=== PATIENT | female | born 1960 | race Caucasian/White ===

== ENCOUNTER 2018-03-27 18:15 | Inpatient (IN) ==
[2018-03-27] MEDS ORDERED: HYDROmorphone PF Inj 2 MG/ML Vial IV.PUSH PRN (19:26)
--- NOTE | 2018-03-27 19:32 | ED ---
HPI General Chief Complaint: Fever Stated Complaint: Sent by dr Villagomez Seen by Provider: 03/27/18 19:12 History of Present Illness HPI Narrative: 57-year-old woman with allogenic renal transplant June 2017, [place], [place], presents with progressive fever over the past several days. Kidney function has been fairly well, but she is not sure if she has a urinary tract infection, reporting that she has pain in her left flank. She has no cough or congestion, she has a port in her right chest, but this is not tender, and it has been infusing well. Patient has been receiving Prograf up until a couple of weeks ago, and was switched at the beginning of the month to intravenous meds monthly for graft rejection. Renal transplant function was reported at 48% at last check, she had stable biopsy approximately a month after transplant, none since. She reports remaining kidneys removed. Pain is localized to left flank area, mild radiation towards the back, no aggravation with movement, no alleviation with ovsv-cnq-qndgfct medications. Patient's health is good otherwise. 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 She is also has polycystic liver disease, but her only significant abnormality is an elevated AST, but she is never had cirrhosis or ascites. She had a complicated right femoral fracture, and she has had prior DVT of her right lower extremity after transplant, which is currently treated with daily Lovenox. Patient does not tolerate NSAIDs as a result of the transplant. Related Data Home Medications Medication Instructions Recorded Confirmed Phenergan 25 mg PO Q6-8H PRN 03/27/18 03/27/18 acetaminophen 650 mg PO Q4H PRN 03/27/18 03/27/18 anagrelide 0.5 mg PO Q12H 03/27/18 03/27/18 atorvastatin 20 mg PO DAILY 03/27/18 03/27/18 azathioprine [Imuran] 100 mg PO DAILY 03/27/18 03/27/18 belatacept 10 mg/kg IV QMONTH 03/27/18 03/27/18 calcium carbonate 1 tab PO BID 03/27/18 03/27/18 carvedilol 12.5 mg PO BID 03/27/18 03/27/18 diphenoxylate-atropine [Lomotil] 1 tab PO TID 03/27/18 03/27/18 enoxaparin 40 mg SUBCUT DAILY 03/27/18 03/27/18 ergocalciferol (vitamin D2) 50,000 unit PO 3XW 03/27/18 03/27/18 hydromorphone 2 mg PO Q6H PRN 03/27/18 03/27/18 insulin glargine 12 unit SUBCUT QNOON 03/27/18 03/27/18 insulin lispro 1 sliding scale dose SUBCUT UD 03/27/18 03/27/18 [id number] [Creon] 1 cap PO TIDAC 03/27/18 03/27/18 ondansetron 4 mg PO Q8H PRN 03/27/18 03/27/18 pantoprazole 40 mg PO BID 03/27/18 03/27/18 prednisone 10 mg PO DAILY 03/27/18 03/27/18 prochlorperazine maleate 10 mg PO Q6-8H PRN 03/27/18 03/27/18 [Compazine] tacrolimus 0.5 mg PO DAILY 03/27/18 03/27/18 tacrolimus [Prograf] 4 mg PO Q12H 03/27/18 03/27/18 Allergies Allergy/AdvReac Type Severity Reaction Status Date / Time metronidazole [From Flagyl] Allergy Mild Hives Verified 03/27/18 18:27 oxycodone Allergy Mild Redness of Verified 03/27/18 18:27 Skin oxytetracycline Allergy Mild Hives Verified 03/27/18 18:27 [From Terramycin] [facility] Medical History Medical History Diabetes (Acute) Dumping syndrome (Acute) GERD (gastroesophageal reflux disease) (Acute) Gastroparesis (Acute) History of hysterectomy (Acute) Kidney failure (Acute) Liver function failure (Acute) On total parenteral nutrition (TPN) (Acute) Surgical History Surgical History H/O splenectomy (Acute) History of colectomy (Acute) History of intestinal surgery (Acute) History of oophorectomy (Acute) History of pancreatectomy (Acute) Kidney transplant recipient (Acute) Surgical procedure on lower extremity within past 6 months (Acute) Social History Social History Substance History: No History of Abuse Second Hand Smoke Exposure: No Smoking Status: Former smoker Tobacco Type: Cigarettes How Often Do You Have a Drink Containing Alcohol: Never Recent Travel in [facility] within the Last 8 Weeks: No Recent Out of Country Travel within the Last 8 Weeks: No Exam Narrative Exam Narrative: GENERAL: Adult female, somewhat thin but generally healthy- appearing, she is febrile, but resting fairly comfortably, no acute distress, speaks easily, breathes easily. SKIN: Focused skin assessment warm/dry. Good turgor. HEAD: Atraumatic. Normocephalic. EYES: Pupils equal and round. No scleral icterus. No injection or drainage. ENT: Pharynx is benign. No nasal bleeding or discharge. Mucous membranes pink and moist. NECK: Trachea midline. No JVD. CARDIOVASCULAR: Regular rate and rhythm. Soft 0/6 to 1/6 systolic murmur heard best in left lower sternal border, no other murmur appreciated. CHEST: Ward catheter in place right upper anterior chest wall, intact, not inflamed, no drainage. RESPIRATORY: No accessory muscle use. Clear to auscultation. Breath sounds equal bilaterally. GASTROINTESTINAL: Abdomen large midline incision, well-healed, kidney is palpable in right lower quadrant, nontender, no surrounding inflammation or edema. Remainder of abdomen is flat and soft, mild to moderate tenderness palpation mid left abdomen, left flank nontender, nondistended. Hepatic and splenic margins not palpable. MUSCULOSKELETAL: Back nontender, no costovertebral angle tenderness. No obvious deformities. No clubbing. No cyanosis. No edema. NEUROLOGICAL: Awake and alert. No obvious cranial nerve deficits. Motor grossly within normal limits. Normal speech. PSYCHIATRIC: Appropriate mood and affect; insight and judgment normal. Course Initial Documented Vital Signs Temperature 100.5 F H 03/27/18 19:14 Pulse Rate 42 L 03/27/18 19:14 Respiratory Rate 16 03/27/18 19:14 Blood Pressure 141/80 H 03/27/18 19:14 Pulse Oximetry 98 03/27/18 19:14 Last Documented Vital Signs Temperature 100.5 F H 03/27/18 19:14 Pulse Rate 42 L 03/27/18 19:14 Respiratory Rate 16 03/27/18 19:14 Blood Pressure 141/80 H 03/27/18 19:14 Pulse Oximetry 98 03/27/18 19:14 Medical Decision Making [facility] Narrative Medical decision making narrative: This patient with renal transplant in June 2017, presents with fever for 2 days, he is febrile on examination, but has stable labs, with borderline elevation of white count, stable lactic acid, intact port, but with past history of port infection with VRE, requiring change 2 months ago. Patient also has some left mid abdominal discomfort, but abdomen is generally soft in all quadrants, including the left abdomen. She is nontender in the left flank, and in the left CVA area, and lungs are clear, with normal chest x-ray. She does not meet sepsis criteria, but needs evaluation to see if she is bacteremic, will be covered with antibiotics. Consultation with transplant specialist at [facility] performed, 2100 hrs. , case reviewed with him, patient has had relatively uncomplicated course, no significant evidence of rejection, and creatinine has been stable, and remains so today. Recommended initial coverage with Zyvox and or Zosyn, and patient will be admitted to a floor bed pending cultures. Medical Screen Exam Complete: Yes Emergency Medical Condition: Yes Lab Data Result diagrams: 03/27/18 20:10 03/27/18 20:10 Lab Results 03/27/18 03/27/18 03/27/18 Range/Units 19:01 20:10 20:10 WBC 13.7 H (4.0-11.0) th/mm3 RBC 3.77 L (4.00-5.30) mil/mm3 Hgb 10.7 L (11.6-15.3) gm/dL Hct 33.7 L (35.0-46.0) % MCV 89.2 (80.0-100.0) fL MCH 28.4 (27.0-34.0) pg MCHC 31.8 L (32.0-36.0) % RDW 16.5 (11.6-17.2) % Plt Count 187 (150-450) th/mm3 MPV 8.5 (7.0-11.0) fL Neut % (Auto) 84.5 H (16.0-70.0) % Lymph % (Auto) 2.8 L (9.0-44.0) % Warren % (Auto) 12.1 H (0.0-8.0) % Eos % (Auto) 0.3 (0.0-4.0) % Baso % (Auto) 0.3 (0.0-2.0) % Neut # (Auto) 11.6 H (1.8-7.7) th/mm3 Lymph # (Auto) 0.4 L (1.0-4.8) th/mm3 Warren # (Auto) 1.7 H (0.0-0.9) th/mm3 Eos # (Auto) 0.0 (0.0-0.4) th/mm3 Baso # (Auto) 0.0 (0.0-0.2) th/mm3 WBC Differential . Differential Comment Auto diff final PT 10.2 (9.8-11.6) sec INR 1.0 Ratio Sodium (136-145) meq/L Potassium (3.5-5.1) meq/L Chloride (98-107) meq/L Carbon Dioxide (21.0-32.0) meq/L Anion Gap (5-15) meq/L BUN (7-18) mg/dL Creatinine (0.50-1.00) mg/dL Estimated GFR (>89) mL/min POC Glucose 193 H (68-110) mg/dl Random Glucose (74-106) mg/dL Lactic Acid (0.4-2.0) mmol/L Calcium (8.5-10.1) mg/dL Phosphorus (2.5-4.9) mg/dL Magnesium (1.5-2.5) mg/dL Total Bilirubin (0.2-1.0) mg/dL AST (15-37) U/L ALT (10-53) U/L Alkaline Phosphatase (45-117) U/L Total Protein (6.4-8.2) g/dL Albumin (3.4-5.0) g/dL Urine Color (Yellw/Straw) Urine Clarity (Clear) Urine pH (5.0-8.5) Ur Specific Henderson (1.002-1.035) Urine Protein (Neg-Trace) mg/dL Urine Glucose (UA) (Negative) mg/dL Urine Ketones (Negative) mg/dL Urine Occult Blood (Negative) Urine Nitrate (Negative) Urine Bilirubin (Negative) Urine Urobilinogen (Less than 2) mg/dL Ur Leukocyte Esterase (Negative) Urine WBC (0-5) /hpf Ur Squamous Epith Cells (0-5) /hpf Micro UA Comment Ur Microscopic Review Urine Culture Comments 09/03/27/18 03/27/18 Range/Units 20:10 20:10 21:20 WBC (4.0-11.0) th/mm3 RBC (4.00-5.30) mil/mm3 Hgb (11.6-15.3) gm/dL Hct (35.0-46.0) % MCV (80.0-100.0) fL MCH (27.0-34.0) pg MCHC (32.0-36.0) % RDW (11.6-17.2) % Plt Count (150-450) th/mm3 MPV (7.0-11.0) fL Neut % (Auto) (16.0-70.0) % Lymph % (Auto) (9.0-44.0) % Warren % (Auto) (0.0-8.0) % Eos % (Auto) (0.0-4.0) % Baso % (Auto) (0.0-2.0) % Neut # (Auto) (1.8-7.7) th/mm3 Lymph # (Auto) (1.0-4.8) th/mm3 Warren # (Auto) (0.0-0.9) th/mm3 Eos # (Auto) (0.0-0.4) th/mm3 Baso # (Auto) (0.0-0.2) th/mm3 WBC Differential Differential Comment PT (9.8-11.6) sec INR Ratio Sodium 131 L (136-145) meq/L Potassium 5.2 H (3.5-5.1) meq/L Chloride 101 (98-107) meq/L Carbon Dioxide 20.1 L (21.0-32.0) meq/L Anion Gap 10 (5-15) meq/L BUN 23 H (7-18) mg/dL Creatinine 1.21 H (0.50-1.00) mg/dL Estimated GFR 46 L (>89) mL/min POC Glucose (68-110) mg/dl Random Glucose 161 H (74-106) mg/dL Lactic Acid 1.2 (0.4-2.0) mmol/L Calcium 10.3 H (8.5-10.1) mg/dL Phosphorus 1.7 L (2.5-4.9) mg/dL Magnesium 1.6 (1.5-2.5) mg/dL Total Bilirubin 0.3 (0.2-1.0) mg/dL AST 18 (15-37) U/L ALT 24 (10-53) U/L Alkaline Phosphatase 257 H (45-117) U/L Total Protein 8.1 (6.4-8.2) g/dL Albumin 3.3 L (3.4-5.0) g/dL Urine Color Straw (Yellw/Straw) Urine Clarity Clear (Clear) Urine pH 5.0 (5.0-8.5) Ur Specific Henderson 1.008 (1.002-1.035) Urine Protein Negative (Neg-Trace) mg/dL Urine Glucose (UA) 500 or greater (Negative) mg/dL Urine Ketones Negative (Negative) mg/dL Urine Occult Blood Negative (Negative) Urine Nitrate Negative (Negative) Urine Bilirubin Negative (Negative) Urine Urobilinogen Less than 2 (Less than 2) mg/dL Ur Leukocyte Esterase Negative (Negative) Urine WBC Less than 1 (0-5) /hpf Ur Squamous Epith Cells 1 (0-5) /hpf Micro UA Comment Culture not ind Ur Microscopic Review Not Reportable Urine Culture Comments Culture not ind Imaging Data Radiologist's impression: Chest X-Ray 03/27/18 19:28 CONCLUSION: No acute cardiopulmonary disease. There is no evidence of pneumonia. Discharge Plan Discharge Disposition Patient Disposition: 30 Still Patient Discharge Condition Condition: Stable Discharge Details Diagnosis: Fever, Renal transplant recipient Physicians Team ED Provider: Joe Emmanuel Primary Care Provider: NON STAFF,PROVIDER Rxs /Orders / Referrals /Forms Prescriptions: No Action anagrelide 0.5 mg Capsule 0.5 mg PO Q12H RF: 0 prednisone 10 mg Tablet 10 mg PO DAILY RF: 0 atorvastatin 20 mg Tablet 20 mg PO DAILY RF: 0 carvedilol 12.5 mg Tablet 12.5 mg PO BID RF: 0 diphenoxylate-atropine [Lomotil] 2.5-0.025 mg Tablet 1 tab PO TID RF: 0 prochlorperazine maleate [Compazine] 10 mg Tablet 10 mg PO Q6-8H PRN (Reason: Nausea And Vomiting) RF: 0 acetaminophen 650 mg Tablet Extended Release 650 mg PO Q4H PRN (Reason: Pain) RF: 0 pantoprazole 40 mg Tablet,Delayed Release (Dr/Ec) 40 mg PO BID RF: 0 ergocalciferol (vitamin D2) 50,000 unit Capsule 50,000 unit PO 3XW RF: 0 ondansetron 4 mg Tablet,Disintegrating 4 mg PO Q8H PRN (Reason: Nausea And Vomiting) RF: 0 tacrolimus [Prograf] 1 mg Capsule 4 mg PO Q12H RF: 0 tacrolimus 0.5 mg Capsule 0.5 mg PO DAILY RF: 0 enoxaparin 40 mg/0.4 mL Syringe 40 mg SUBCUT DAILY RF: 0 [id number] [Creon] 24,000-76,000 -120,000 unit Capsule,Delayed Release(Dr/Ec) 1 cap PO TIDAC RF: 0 Phenergan 25 mg PO Q6-8H PRN (Reason: Nausea) RF: 0 calcium carbonate 1 tab PO BID RF: 0 insulin glargine 100 unit/mL Solution 12 unit SUBCUT QNOON RF: 0 azathioprine [Imuran] 50 mg Tablet 100 mg PO DAILY RF: 0 hydromorphone 2 mg Tablet 2 mg PO Q6H PRN (Reason: Diarrhea) RF: 0 insulin lispro 100 unit/mL Cartridge 1 sliding scale dose SUBCUT UD RF: 0 belatacept 250 mg Recon Soln 10 mg/kg IV QMONTH RF: 0 Discharge Interventions Interventions: Vital Signs Last Done: 03/27/18 19:14 Status ED Status: With Doctor
[2018-03-27] MEDS ORDERED: Acetaminophen 325 MG Tablet PO ONE (19:33)
--- NOTE | 2018-03-27 20:05 | XR ---
EXAM DATE: 03/27/2018 7:28 PM EDT AGE/SEX: 57 years / Female INDICATIONS: Fever. Congestion. CLINICAL DATA: This is the patient's subsequent encounter. Patient reports that signs and symptoms h ave been present for 2 days and indicates a pain score of 4/10. MEDICAL/SURGICAL HISTORY: Renal disease. Renal transplant. COMPARISON: No prior exams available for comparison. FINDINGS: A single AP view of the chest demonstrates the lungs to be symmetrically aerated without evidence of mass, infiltrate or effusion. The cardiomediastinal contours are unremarkable. Osseous structures a re intact. CONCLUSION: No acute cardiopulmonary disease. There is no evidence of pneumonia. Electronically signed by: Ruben Aquino MD 03/27/2018 8:04 PM EDT
[2018-03-27 20:33] LABS: Baso % (Auto) 0.3 % (0.0-2.0); Eos % (Auto) 0.3 % (0.0-4.0); Hematocrit 33.7 % (35.0-46.0); Hemoglobin 10.7 gm/dL (11.6-15.3); Lymph # (Auto) 0.4 th/mm3 (1.0-4.8); Lymph % (Auto) 2.8 % (9.0-44.0); Mean Corpuscular HGB Conc 31.8 % (32.0-36.0); Mean Corpuscular Hemoglobin 28.4 pg (27.0-34.0); Mean Corpuscular Volume 89.2 fL (80.0-100.0); Mean Platelet Volume 8.5 fL (7.0-11.0); Mono # (Auto) 1.7 th/mm3 (0.0-0.9); Mono % (Auto) 12.1 % (0.0-8.0); Neut # (Auto) 11.6 th/mm3 (1.8-7.7); Neut % (Auto) 84.5 % (16.0-70.0); Platelet Count 187 th/mm3 (150-450); Red Blood Count 3.77 mil/mm3 (4.00-5.30); Red Cell Distribution Width 16.5 % (11.6-17.2); White Blood Count 13.7 th/mm3 (4.0-11.0)
[2018-03-27 20:40] LABS: Prothrombin Time 10.2 sec (9.8-11.6)
[2018-03-27 20:48] LABS: Alanine Aminotransferase 24 U/L (10-53); Albumin 3.3 g/dL (3.4-5.0); Anion Gap 10 meq/L (5-15); Aspartate Aminotransferase 18 U/L (15-37); Blood Urea Nitrogen 23 mg/dL (7-18); Calcium 10.3 mg/dL (8.5-10.1); Carbon Dioxide 20.1 meq/L (21.0-32.0); Chloride 101 meq/L (98-107); Glomerular Filtration Rate 46 mL/min (>89); Glucose,Random 161 mg/dL (74-106); Magnesium 1.6 mg/dL (1.5-2.5); Potassium 5.2 meq/L (3.5-5.1); Sodium 131 meq/L (136-145)
[2018-03-27 20:51] LABS: Alkaline Phosphatase 257 U/L (45-117); Phosphorus 1.7 mg/dL (2.5-4.9); Total Protein 8.1 g/dL (6.4-8.2)
[2018-03-27 21:45] LABS: Bilirubin,Urine Negative (Negative); Clarity,Urine Clear (Clear); Color,Urine Straw (Yellw/Straw); Glucose,Urine (UA) 500 or Greater mg/dL (Negative); Leukocyte Esterase,Urine Negative (Negative); Nitrite,Urine Negative (Negative); Specific Gravity,Urine 1.008 (1.002-1.035); Squamous Epithelial Cell,Urine 1 /hpf (0-5)
[2018-03-27] MEDS ORDERED: Dextrose 50% in Water 50 ML Vial IV.PUSH PRN (22:35)
[2018-03-27] MEDS ORDERED: Bisacodyl 10 MG Supp RECTAL PRN (22:38)
--- NOTE | 2018-03-27 22:39 | P.HPIM ---
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 Pt has h/o Renal Transplant in June 2017 in [place], [place] , w/ prolonged hospitalization due to multiple complications including Dumping Syndrome for which she in on TPN. States she was to a hospital in [place] in December 2017 and ultimately transferred to [place], [place] to undergo extensive abdominal surgery for "multiple anastomoses". Reports doing well until today when she developed Temp 100.3, called Transplant Surgeon and was referred to the ER. Notes left flank/LLQ pain, no nausea/vomiting, chronic diarrhea unchanged from baseline. No cough or chest pain. +Ward catheter in place, functioning well. On arrival, BP 141/80, HR 42, O2 sat 100% on RA, Temp 100.5. WBC 13.7. INR 1.0. Creatinine 1.21. Lactic Acid normal. UA negative for UTI. CXR with no acute findings. Dr. Collier, Transplant Surgeon in [place] consulted by ER physician, recommended admission for broad spectrum antibiotics w/ Zyvox/Zosyn. - Diagnosis (1) SIRS (systemic inflammatory response syndrome) (2) H/O kidney transplant (3) Abdominal pain (4) On total parenteral nutrition (TPN) (5) Renal insufficiency (6) DM (diabetes mellitus) Review of Systems PAST FAMILY HISTORY: Reviewed. No h/o DM or CAD All other systems reviewed negative except as [facility] - History History Provided By: Patient - Medical History Medical History: Medical History (Last Reviewed 03/27/18 @ 19:23 by Bibi Hendrickson) Diabetes Dumping syndrome GERD (gastroesophageal reflux disease) Gastroparesis History of hysterectomy Kidney failure Liver function failure On total parenteral nutrition (TPN) - Surgical History Surgical History: Surgical History (Last Updated 03/27/18 @ 19:23 by Bibi Hendrickson) H/O splenectomy History of colectomy History of intestinal surgery History of oophorectomy History of pancreatectomy Kidney transplant recipient Surgical procedure on lower extremity within past 6 months - Tobacco History Second Hand Smoke Exposure: No Tobacco Use In Past 30 Days: No Smoking Status: Former smoker Tobacco Type: Cigarettes - Alcohol History How Often Do You Have a Drink Containing Alcohol: Never - Substance Use History Substance History: No History of Abuse - Travel History Recent Travel in the [place] Within the Last 8 Weeks: No Recent Travel Out of the Country Within the Last 8 Weeks: No - Immunization History Tetanus Immunization: Unsure Hx Influenza Vaccine This Season: Yes Medications and Allergies Active Medications: Active Medications Hydromorphone HCl (Dilaudid Pf Inj) 1 mg IV.PUSH Q1H PRN PRN Reason: PAIN SCALE 6 TO 10 Stop: 03/27/18 23:59 Last Admin: 03/27/18 20:13 Dose: 1 mg Allergies Allergy/AdvReac Type Severity Reaction Status Date / Time metronidazole [From Flagyl] Allergy Mild Hives Verified 03/27/18 18:27 oxycodone Allergy Mild Redness of Verified 03/27/18 18:27 Skin oxytetracycline Allergy Mild Hives Verified 03/27/18 18:27 [From Terramycin] Home Medications Medication Instructions Recorded Confirmed Type Phenergan 25 mg PO Q6-8H PRN 03/27/18 03/27/18 History acetaminophen 650 mg PO Q4H PRN 03/27/18 03/27/18 History anagrelide 0.5 mg PO Q12H 03/27/18 03/27/18 History atorvastatin 20 mg PO DAILY 03/27/18 03/27/18 History azathioprine [Imuran] 100 mg PO DAILY 03/27/18 03/27/18 History belatacept 10 mg/kg IV QMONTH 03/27/18 03/27/18 History calcium carbonate 1 tab PO BID 03/27/18 03/27/18 History carvedilol 12.5 mg PO BID 03/27/18 03/27/18 History diphenoxylate-atropine [Lomotil] 1 tab PO TID 03/27/18 03/27/18 History enoxaparin 40 mg SUBCUT DAILY 03/27/18 03/27/18 History ergocalciferol (vitamin D2) 50,000 unit PO 3XW 03/27/18 03/27/18 History hydromorphone 2 mg PO Q6H PRN 03/27/18 03/27/18 History insulin glargine 12 unit SUBCUT QNOON 03/27/18 03/27/18 History insulin lispro 1 sliding scale dose SUBCUT UD 03/27/18 03/27/18 History [id number] [Creon] 1 cap PO TIDAC 03/27/18 03/27/18 History ondansetron 4 mg PO Q8H PRN 03/27/18 03/27/18 History pantoprazole 40 mg PO BID 03/27/18 03/27/18 History prednisone 10 mg PO DAILY 03/27/18 03/27/18 History prochlorperazine maleate 10 mg PO Q6-8H PRN 03/27/18 03/27/18 History [Compazine] tacrolimus 0.5 mg PO DAILY 03/27/18 03/27/18 History tacrolimus [Prograf] 4 mg PO Q12H 03/27/18 03/27/18 History Exam Vital signs: Vital Signs 03/27/18 19:14 Temperature 100.5 F H Pulse Rate 42 L Respiratory Rate 16 Blood Pressure 141/80 H Pulse Oximetry 98 Narrative: PE: GENERAL: Pleasant middle-aged white female in no acute distress. SKIN: Focused skin assessment warm and dry. HEENT: PERRLA, EOMI. No scleral icterus or conjunctival pallor. No lid lag or facial droop. CARDIOVASCULAR: Regular rate and rhythm. No obvious murmurs to auscultation. No chest tenderness to palpation. RESPIRATORY: No obvious rhonchi or wheezing. Clear to auscultation. Breath sounds equal bilaterally. GASTROINTESTINAL: Abdomen soft, non-tender, nondistended. BS normal. Large midline incision, well healed, no significant tenderness to palpation, large right kidney MUSCULOSKELETAL: Extremities without clubbing, cyanosis, or edema. No obvious deformities. NEUROLOGICAL: Awake, alert and oriented x4. No focal neurologic deficits. Moving both upper and lower extremities spontaneously. PSYCHIATRIC: Appropriate mood and affect. Insight and judgment normal. Results - Labs CBC & Chem 7: 03/27/18 20:10 03/27/18 20:10 Labs: Short CBC 03/27/18 Range/Units 20:10 WBC 13.7 H (4.0-11.0) th/mm3 Hgb 10.7 L (11.6-15.3) gm/dL Hct 33.7 L (35.0-46.0) % Plt Count 187 (150-450) th/mm3 BMP 03/27/18 20:10 Sodium 131 L Potassium 5.2 H Chloride 101 Carbon Dioxide 20.1 L BUN 23 H Creatinine 1.21 H Calcium 10.3 H Liver Function 03/27/18 Range/Units 20:10 Total Bilirubin 0.3 (0.2-1.0) mg/dL AST 18 (15-37) U/L ALT 24 (10-53) U/L Alkaline Phosphatase 257 H (45-117) U/L Albumin 3.3 L (3.4-5.0) g/dL Urine 03/27/18 Range/Units 21:20 Urine Color Straw (Yellw/Straw) Urine Clarity Clear (Clear) Urine pH 5.0 (5.0-8.5) Ur Specific [place] 1.008 (1.002-1.035) Urine Protein Negative (Neg-Trace) mg/dL Urine Glucose (UA) 500 or greater (Negative) mg/dL - Imaging Impressions Chest X-Ray 03/27/18 19:28 CONCLUSION: No acute cardiopulmonary disease. There is no evidence of pneumonia. Caprini VTE Risk Assessment Caprini VTE Risk Assessment: Moderate/High Risk (score >= 2) Caprini Risk Assessment Model: Point Value = 1 Point Value = 2 Point Value = 3 Point Value = 5 Age 41-60 Minor surgery BMI > 25 kg/m2 Swollen legs Varicose veins or History of unexplained or recurrent spontaneous Oral contraceptives or hormone replacement Sepsis (< 1 month) Serious lung disease, including pneumonia (< 1 month) Abnormal pulmonary function Acute myocardial infarction Congestive heart failure (< 1 month) History of inflammatory bowel disease Medical patient at bed rest Age 61-74 Arthroscopic surgery Major open surgery (> 45 min) Laparoscopic surgery (> 45 min) Malignancy Confined to bed (> 72 hours) Immobilizing plaster cast Central venous access Age >= 75 History of VTE Family history of VTE Factor V Leiden Prothrombin [id number] Lupus anticoagulant Anticardiolipin antibodies Elevated serum homocysteine Heparin-induced thrombocytopenia Other congenital or acquired thrombophilia Stroke (< 1 month) Elective arthroplasty Hip, pelvis, or leg fracture Acute spinal cord injury (< 1 month) Prophylaxis Regimen: Total Risk Factor Score Risk Level Prophylaxis Regimen 0-1 Low Early ambulation 2 Moderate Order ONE of the following: *Sequential Compression Device (SCD) *Heparin 5000 units SQ BID 3-4 Higher Order ONE of the following medications: *Heparin 5000 units SQ TID *Enoxaparin/Lovenox 40 mg SQ daily (WT < 150 kg, CrCl > 30 mL/min) *Enoxaparin/Lovenox 30 mg SQ daily (WT < 150 kg, CrCl > 10-29 mL/min) *Enoxaparin/Lovenox 30 mg SQ BID (WT < 150 kg, CrCl > 30 mL/min) AND/OR *Sequential Compression Device (SCD) 5 or more Highest Order ONE of the following medications: *Heparin 5000 units SQ TID (Preferred with Epidurals) *Enoxaparin/Lovenox 40 mg SQ daily (WT < 150 kg, CrCl > 30 mL/min) *Enoxaparin/Lovenox 30 mg SQ daily (WT < 150 kg, CrCl > 10-29 mL/min) *Enoxaparin/Lovenox 30 mg SQ BID (WT < 150 kg, CrCl > 30 mL/min) AND *Sequential Compression Device (SCD) Assessment and Plan - Assessment (1) SIRS (systemic inflammatory response syndrome) Code(s): R65.10 - Systemic inflammatory response syndrome (SIRS) of non- infectious origin without acute organ dysfunction Status: Acute (2) H/O kidney transplant Code(s): Z94.0 - Kidney transplant status Status: Acute (3) Abdominal pain Code(s): R10.9 - Unspecified abdominal pain Status: Acute (4) On total parenteral nutrition (TPN) Code(s): Z78.9 - Other specified health status Status: Acute (5) Renal insufficiency Code(s): N28.9 - Disorder of kidney and ureter, unspecified Status: Acute (6) DM (diabetes mellitus) Code(s): E11.9 - Type 2 diabetes mellitus without complications Status: Acute - Plan A/P: 1. SIRS: Temp 100.5, WBC 13.7, Source-unclear, in light of immunocompromised state, will continue w/ broad-spectrum antibiotics, follow up cultures, IVF for hydration. 2. H/o Kidney Transplant: Jun 2017 in [place], [place], Dr. Collier Transplant Sx consulted at time of admission, recommended Zyvox/Zosyn and eval for fever, follow up Blood Cultures, check BK Virus, U/a negative for UTI, resume home medications, check Prograf level. 3. Abdominal Pain: recent abdominal surgery 01/20/18, now w/ c/o abdominal pain , will check CT w/o contrast-due to renal insufficiency/transplant to eval for possible abscess/intra-abdominal infection. 4. TPN: H/o Dumping Syndrome on TPN in addition to PO, will resume TPN once formulation available. 5. Renal Insufficiency: Creatinine 1.21, h/o transplant as above, IVF for hydration, check Prograf level, resume home medications, monitor I/O, repeat labs in am. 6. DM: Sliding scale w/ Accu-cheks. 7. DVT Prophylaxis: H/o DVT on Lovenox sq daily, will resume 8. Social work for d/c planning as needed 9. Case discussed w/ ER physician at length, labs/records/imaging reviewed by me
[2018-03-27] MEDS: Sod Chloride 0.9% Inj 1,000 ML IV.CONT SCH (23:14)
--- NOTE | 2018-03-27 23:53 | CT ---
EXAM DATE: 03/27/2018 11:19 PM EDT AGE/SEX: 57 years / Female INDICATIONS: Recent renal transplant. Evaluate for abscess. CLINICAL DATA: This is the patient's initial encounter. Patient reports that signs and symptoms have been present for 1 day and indicates a pain score of 3/10. MEDICAL/SURGICAL HISTORY: Diabetes mellitus type II. Gastroparesis. Renal failure, chronic. R enal transplant. Hysterectomy. Splenectomy. Pancreatectomy Colectomy Bilateral nephrectomy RADIATION DOSE: 8.76 CTDI (mGy) COMPARISON: No prior exams available for comparison. TECHNIQUE: Multiple contiguous axial images were obtained through the abdomen. Images were obtained using multiple row detector helical technique. Using automated exposure control and adjustment of the mA and/or kV according to patient size, radiation dose was kept as low as reasonably achievable to o btain optimal diagnostic quality images. DICOM format image data is available electronically for rev iew and comparison. FINDINGS: LOWER LUNGS: The visualized lower lungs are clear. LIVER: Gallbladder is surgically absent with prominent intrahepatic pneumobilia. There are numerous subcentimeter hypodense lesions in both lobes of the most prominently in the right lobe. SPLEEN: Spleen is surgically absent. A 2.3 cm soft tissue mass in the left upper quadrant likely ref lects a small splenule. PANCREAS: Grossly unremarkable. KIDNEYS: Patient is status post bilateral nephrectomies with right lower quadrant renal transplant. There is mild hydronephrosis of the transplant kidney with a single hyperdense lesion in the posterio r mid transplant kidney likely reflecting a hemorrhagic cyst. No significant perinephric fluid collec tions or radiopaque renal calculi. ADRENAL GLANDS: Unremarkable. AORTA: Lian-aneurysmal. BOWEL/MESENTERY: Postsurgical features of near total colectomy with anastomosis in the mid to distal sigmoid. Several loops of marginally dilated bowel in the left upper quadrant near surgical suture l suzy. Bowel otherwise appear unremarkable without evidence for pneumatosis or free air. ABDOMINAL WALL: Abdominal wall soft tissue density lesions and subcutaneous air likely reflect injec tion granulomas. BLADDER: Decompressed. REPRODUCTIVE: Status post hysterectomy. BONY STRUCTURES: Unremarkable. CONCLUSION: 1. Status post cholecystectomy with prominent intrahepatic pneumobilia. Numerous subcentimeter hypod ensities lesions in both lobes of the liver, most prominently in the right lobe. Although nonspecific , cannot exclude hepatic abscesses in the appropriate clinical setting. Comparisons with prior CT exa minations would be beneficial to determine chronicity. 2. 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 Mild hydronephros is of the transplant kidney without perirenal fluid collections or radiopaque calculi. 3. Status post near total colectomy with multiple suture lines in the left upper quadrant. Several l oops of small bowel in the left upper quadrant are marginally dilated without definitive evidence for bowel obstruction. 4. Additional ancillary findings, as above. Electronically signed by: Joaquin Pollock MD 03/27/2018 11:52 PM EDT
[2018-03-28] MEDS: HYDROmorphone PF Inj 2 MG/ML Vial IV.PUSH PRN ×6 (00:11→23:00)
[2018-03-28] MEDS ORDERED: Heparin Central Flush 100 UNIT/ML 5 ML Vial IV.FLUSH PRN (01:25)
[2018-03-28 06:05] LABS: Baso # (Auto) 0.1 th/mm3 (0.0-0.2); Baso % (Auto) 0.7 % (0.0-2.0); Eos # (Auto) 0.1 th/mm3 (0.0-0.4); Eos % (Auto) 0.8 % (0.0-4.0); Hematocrit 28.6 % (35.0-46.0); Hemoglobin 9.1 gm/dL (11.6-15.3); Lymph # (Auto) 1.9 th/mm3 (1.0-4.8); Lymph % (Auto) 17.4 % (9.0-44.0); Mean Corpuscular Hemoglobin 29.2 pg (27.0-34.0); Mean Corpuscular Volume 91.2 fL (80.0-100.0); Mean Platelet Volume 7.2 fL (7.0-11.0); Mono # (Auto) 1.4 th/mm3 (0.0-0.9); Neut # (Auto) 7.3 th/mm3 (1.8-7.7); Neut % (Auto) 68.1 % (16.0-70.0); Platelet Count 126 th/mm3 (150-450); Red Blood Count 3.14 mil/mm3 (4.00-5.30); Red Cell Distribution Width 16.9 % (11.6-17.2); White Blood Count 10.8 th/mm3 (4.0-11.0)
[2018-03-28 06:32] LABS: Alanine Aminotransferase 18 U/L (10-53); Albumin 2.6 g/dL (3.4-5.0); Anion Gap 9 meq/L (5-15); Aspartate Aminotransferase 11 U/L (15-37); Blood Urea Nitrogen 21 mg/dL (7-18); Calcium 9.4 mg/dL (8.5-10.1); Carbon Dioxide 20.9 meq/L (21.0-32.0); Chloride 100 meq/L (98-107); Glomerular Filtration Rate 41 mL/min (>89); Glucose,Random 391 mg/dL (74-106); Potassium 5.1 meq/L (3.5-5.1); Sodium 130 meq/L (136-145)
[2018-03-28 06:40] LABS: Alkaline Phosphatase 210 U/L (45-117); Total Protein 6.9 g/dL (6.4-8.2)
[2018-03-28] MEDS ORDERED: Piperacil/Tazo 4.5 GM Premix 4.5 GM/100 ML BAG IV.SIG SCH ×2 (08:30)
[2018-03-28] MEDS: predniSONE 10 MG Tablet PO SCH (08:57)
[2018-03-28] MEDS: azaTHIOprine 50 MG Tablet PO SCH (08:57)
[2018-03-28] MEDS: Lipase/Protease/Amylase 24/76/120 DR Capsule PO SCH ×3 (08:57→17:29)
[2018-03-28] MEDS: Carvedilol 12.5 MG Tablet PO SCH ×2 (08:57→20:52)
[2018-03-28] MEDS: Diphenoxylate/Atropine 2.5/0.025 MG Tablet PO SCH ×3 (08:57→17:29)
[2018-03-28] MEDS: Senna/Docusate Sodium 8.6/50 MG Tablet PO SCH ×2 (08:57→20:52)
[2018-03-28] MEDS: Enoxaparin Inj 40 MG/0.4 ML Syringe SQ SCH (08:58)
[2018-03-28] MEDS: Calcium Carbonate 500 MG Tablet PO SCH ×2 (08:58→20:52)
[2018-03-28] MEDS: Heparin Central Flush 100 UNIT/ML 5 ML Vial IV.FLUSH SCH (08:58)
[2018-03-28] MEDS: Insulin NovoLOG Aspart Correctional Sugar Inj SQ SCH ×4 (08:59→20:49)
[2018-03-28] MEDS: Piperacil/Tazo 4.5 GM Premix 4.5 GM/100 ML BAG IV.SIG SCH ×3 (09:54→20:51)
--- NOTE | 2018-03-28 11:49 | P.PNIM ---
Physical Exam Vital signs: Vital Signs 03/27/18 19:14 03/28/18 00:00 03/28/18 03:00 Temperature 100.5 F H 98.7 F Pulse Rate 42 L 73 74 Respiratory Rate 16 16 Blood Pressure 141/80 H 111/75 Pulse Oximetry 98 95 03/28/18 04:00 03/28/18 07:00 03/28/18 08:00 Temperature 98.5 F 98.4 F Pulse Rate 71 70 72 Respiratory Rate 16 16 Blood Pressure 116/74 152/86 H Pulse Oximetry 96 98 Intake & Output 03/27/18 03/28/18 03/28/18 18:59 06:59 18:59 Intake Total 640 / 640 100 / 100 Output Total 100 / 100 Balance 540 / 540 100 / 100 Weight 55.9 kg Intake: IV 400 / 400 100 / 100 Zyvox 600 mg Premix 300 ML @ 300 / 300 300 mls/hr IV.SIG Q12H RONALD Rx#: [id number] Zosyn 4.5 GM Premix 4.5 gm In 100 / 100 100 / 100 100 ml @ 200 mls/hr IV.SIG Q6H RONALD Rx#:[id number] Oral 240 / 240 Output: Urine 100 / 100 Other: # Voids 1 Date of Last Bowel Movement 03/27/18 # Bowel Movements 0 Weight On Admission 55.9 kg Results - Labs CBC & Chem 7: 03/28/18 05:50 03/28/18 05:50 Laboratory Results - last 24 hr 03/27/18 03/27/18 03/27/18 19:01 20:10 20:10 WBC 13.7 H RBC 3.77 L Hgb 10.7 L Hct 33.7 L MCV 89.2 MCH 28.4 MCHC 31.8 L RDW 16.5 Plt Count 187 MPV 8.5 Neut % (Auto) 84.5 H Lymph % (Auto) 2.8 L [place] % (Auto) 12.1 H Eos % (Auto) 0.3 Baso % (Auto) 0.3 Neut # (Auto) 11.6 H Lymph # (Auto) 0.4 L [place] # (Auto) 1.7 H Eos # (Auto) 0.0 Baso # (Auto) 0.0 WBC Differential . Differential Comment Auto diff final PT 10.2 INR 1.0 APTT Sodium Potassium Chloride Carbon Dioxide Anion Gap BUN Creatinine Estimated GFR POC Glucose 193 H Random Glucose Lactic Acid Calcium Phosphorus Magnesium Total Bilirubin AST ALT Alkaline Phosphatase Total Protein Albumin Urine Color Urine Clarity Urine pH Ur Specific [place] Urine Protein Urine Glucose (UA) Urine Ketones Urine Occult Blood Urine Nitrate Urine Bilirubin Urine Urobilinogen Ur Leukocyte Esterase Urine WBC Ur Squamous Epith Cells Micro UA Comment Ur Microscopic Review Urine Culture Comments 03/27/18 03/27/18 03/27/18 20:10 20:10 20:10 WBC RBC Hgb Hct MCV MCH MCHC RDW Plt Count MPV Neut % (Auto) Lymph % (Auto) [place] % (Auto) Eos % (Auto) Baso % (Auto) Neut # (Auto) Lymph # (Auto) [place] # (Auto) Eos # (Auto) Baso # (Auto) WBC Differential Differential Comment PT INR APTT 31.9 H Sodium 131 L Potassium 5.2 H Chloride 101 Carbon Dioxide 20.1 L Anion Gap 10 BUN 23 H Creatinine 1.21 H Estimated GFR 46 L POC Glucose Random Glucose 161 H Lactic Acid 1.2 Calcium 10.3 H Phosphorus 1.7 L Magnesium 1.6 Total Bilirubin 0.3 AST 18 ALT 24 Alkaline Phosphatase 257 H Total Protein 8.1 Albumin 3.3 L Urine Color Urine Clarity Urine pH Ur Specific [place] Urine Protein Urine Glucose (UA) Urine Ketones Urine Occult Blood Urine Nitrate Urine Bilirubin Urine Urobilinogen Ur Leukocyte Esterase Urine WBC Ur Squamous Epith Cells Micro UA Comment Ur Microscopic Review Urine Culture Comments 03/27/18 03/28/18 03/28/18 21:20 05:50 05:50 WBC 10.8 RBC 3.14 L Hgb 9.1 L Hct 28.6 L MCV 91.2 MCH 29.2 MCHC 32.0 RDW 16.9 Plt Count 126 L D MPV 7.2 Neut % (Auto) 68.1 Lymph % (Auto) 17.4 [place] % (Auto) 13.0 H Eos % (Auto) 0.8 Baso % (Auto) 0.7 Neut # (Auto) 7.3 Lymph # (Auto) 1.9 [place] # (Auto) 1.4 H Eos # (Auto) 0.1 Baso # (Auto) 0.1 WBC Differential . Differential Comment Auto diff final PT INR APTT Sodium 130 L Potassium 5.1 Chloride 100 Carbon Dioxide 20.9 L Anion Gap 9 BUN 21 H Creatinine 1.32 H Estimated GFR 41 L POC Glucose Random Glucose 391 H D Lactic Acid Calcium 9.4 D Phosphorus Magnesium Total Bilirubin 0.3 AST 11 L ALT 18 Alkaline Phosphatase 210 H Total Protein 6.9 D Albumin 2.6 L D Urine Color Straw Urine Clarity Clear Urine pH 5.0 Ur Specific [place] 1.008 Urine Protein Negative Urine Glucose (UA) 500 or greater Urine Ketones Negative Urine Occult Blood Negative Urine Nitrate Negative Urine Bilirubin Negative Urine Urobilinogen Less than 2 Ur Leukocyte Esterase Negative Urine WBC Less than 1 Ur Squamous Epith Cells 1 Micro UA Comment Culture not ind Ur Microscopic Review Not Reportable Urine Culture Comments Culture not ind 03/28/18 08:15 WBC RBC Hgb Hct MCV MCH MCHC RDW Plt Count MPV Neut % (Auto) Lymph % (Auto) [place] % (Auto) Eos % (Auto) Baso % (Auto) Neut # (Auto) Lymph # (Auto) [place] # (Auto) Eos # (Auto) Baso # (Auto) WBC Differential Differential Comment PT INR APTT Sodium Potassium Chloride Carbon Dioxide Anion Gap BUN Creatinine Estimated GFR POC Glucose 369 H Random Glucose Lactic Acid Calcium Phosphorus Magnesium Total Bilirubin AST ALT Alkaline Phosphatase Total Protein Albumin Urine Color Urine Clarity Urine pH Ur Specific [place] Urine Protein Urine Glucose (UA) Urine Ketones Urine Occult Blood Urine Nitrate Urine Bilirubin Urine Urobilinogen Ur Leukocyte Esterase Urine WBC Ur Squamous Epith Cells Micro UA Comment Ur Microscopic Review Urine Culture Comments Microbiology 03/27/18 20:00 Blood - Line Aerobic Blood Culture - Preliminary No growth in 1 day 03/27/18 20:00 Blood - Line Anaerobic Blood Culture - Preliminary No growth in 1 day 03/27/18 20:10 Blood - Line Aerobic Blood Culture - Preliminary No growth in 1 day 03/27/18 20:10 Blood - Line Anaerobic Blood Culture - Preliminary No growth in 1 day - Imaging Impressions Abdomen/Pelvis CT 03/27/18 00:00 CONCLUSION: 1. Status post cholecystectomy with prominent intrahepatic pneumobilia. Numerous subcentimeter hypodensities lesions in both lobes of the liver, most prominently in the right lobe. Although nonspecific, cannot exclude hepatic abscesses in the appropriate clinical setting. Comparisons with prior CT examinations would be beneficial to determine chronicity. 2. 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 Mild hydronephrosis of the transplant kidney without perirenal fluid collections or radiopaque calculi. 3. Status post near total colectomy with multiple suture lines in the left upper quadrant. Several loops of small bowel in the left upper quadrant are marginally dilated without definitive evidence for bowel obstruction. 4. Additional ancillary findings, as above. Chest X-Ray 03/27/18 19:28 CONCLUSION: No acute cardiopulmonary disease. There is no evidence of pneumonia. Assessment and Plan - Assessment (1) SIRS (systemic inflammatory response syndrome) Code(s): R65.10 - Status: Acute (2) H/O kidney transplant Code(s): Z94.0 - Status: Acute (3) Abdominal pain Code(s): R10.9 - Status: Acute (4) On total parenteral nutrition (TPN) Code(s): Z78.9 - Status: Acute (5) Renal insufficiency Code(s): N28.9 - Status: Acute (6) DM (diabetes mellitus) Code(s): E11.9 - Status: Acute - Plan Fever, SIRS Patient presented with leukocytosis and fever, source is unclear Chest x-ray was within normal limits, urinalysis showed no infection Patient is high risk due to immunocompromise state secondary to medications for renal transplant as well as shortened bowel Continue empiric coverage with Zyvox and Zosyn Following up results for blood cultures We will consult infectious disease due to complexity of her clinical picture h/o renal transplant Transplanted in June 2017 at [facility], Dr. 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
[2018-03-28] MEDS: Tacrolimus 0.5 MG Capsule PO SCH (13:09)
--- NOTE | 2018-03-28 14:40 | P.DIET ---
Nutritional Evaluation Type of nutrition evaluation: initial Nutrition consult regarding: TPN/PPN [place] [facility] [place] 03[place]28/18 [facility] [place] h/o TPN use at home Subjective Subjective Comments: Pt says she eats very little at home-usually a slice of toast and a protein shake daily. Pt says meats and vegetables "go right through me". Pt declines Beneprotein packets and says she has an aversion to adding powder to drinks. Pt is receptive to drinking Glucerna Shakes and says she has had these in the past. Pt's home TPN runs for 12-hours daily so she can "be up moving around". Objective - Diagnosis Fever, Renal Transplant - Objective Rufe body weight: 61.4 kg % IBW: 91 Body Weight Used for Calculations: Actual (55.9kg) Energy Needs - Lower Range (kCal/kg): 30 Energy Needs - Upper Range (kCal/kg): 35 Lower Limit kCal/kg (kCals): 1,677 Upper Limit kCal/kg (kCals): 1,957 Lower Limit Protein Factor (Grams per Kg): 1.1 Upper Limit Protein Factor (Grams per Kg): 1.4 Lower Protein Needs (Protein): 62 Upper Protein Needs (Protein): 78 Dietitian Reviewed in Medical Record: Current diet, Curent medications, Intake & Output, Labs, Medical history Diet Order: Regular Oral Diet Intake Amount: Poor <50% Objective Comments: PMH: DM, Dumping Syndrome, Gastroparesis related to adhesions and stenosis of the bowel-on TPN at home, GERD, chronic diarrhea, h/o bilateral nephrectomy and Right Kidney transplant 06/2017 ; h/o splenectomy, colectomy, oophrectomy, pancreatectomy, liver function failure; intestinal surgery 01/20/18-pt has 260cm of small bowel w/No Colon Labs Include: Creatinine 1.32, estGFR 41, Glucose 391, POC Glucose 369, 226; Na 130. K 5.1, Phosphorus 1.7 Meds Include: Creon, Lipitor, Imuran, Prograf, Oscal, Coreg, Lomotil, Novolog, Zofran, Protonix, Prednisone Assessment Assessment: Pt is at high nutrition risk r/t medical history and need for TPN. Pt tolerates small amounts of po intake and no appetite. Send Glucerna Shakes TID(= 220 kcal and 10g protein per serving). For PPN, Rec CLINIMIX 4.25/5 @ 70ml/hr and 20% Lipids @ 10ml/hr to offer 71g Protein and 1051 kcal providing 100% for protein needs and 63% for kcal needs. For TPN, Rec CLINIMIX 5/20 @ 65ml/hr and 20% Lipids 250ml @ 31.25ml/hr daily over 8-hours to offer 78g Protein and 1873 kcal. GUR for TPN is 4. Monitor labs/electrolytes. Rec a TG level is setting of TPN. Additional Recs to follow r/t clinical course. Recommendations: 1. Send Glucerna Shakes TID 2. For PPN, Rec CLINIMIX 4.25/5 @ 70ml/hr and 20% Lipids @ 10ml/hr 3. For TPN, Rec CLINIMIX 5/20 @ 65ml/hr and 20% Lipids 250ml @ 31.25ml/hr daily over 8-hours 4. Rec TG level in setting of TPN 5. Additional Recs to follow r/t clinical course Dietitian to Monitor: Lab values, Electrolytes, Renal labs, Liver enzymes, Glucose level, Supplement acceptance, Intake & Output, Diet tolerance, TPN/PPN tolerance, Weight change, PO Intake, Medical course
[2018-03-28] MEDS: Sod Chloride 0.9% Inj 1,000 ML IV.CONT SCH ×2 (15:13→20:44)
[2018-03-28] MEDS ORDERED: Morphine Inj 4 MG/ML Vial IV.PUSH ONE (23:53)
[2018-03-29] MEDS: Piperacil/Tazo 4.5 GM Premix 4.5 GM/100 ML BAG IV.SIG SCH ×4 (02:36→20:31)
[2018-03-29] MEDS ORDERED: hydrALAZINE 25 MG Tablet PO ONE (02:48)
[2018-03-29] MEDS: Sod Chloride 0.9% Inj 1,000 ML IV.CONT SCH ×2 (04:25→14:53)
[2018-03-29] MEDS: Insulin NovoLOG Aspart Correctional Sugar Inj SQ SCH ×5 (05:51→20:45)
[2018-03-29 06:19] LABS: Hematocrit 29.3 % (35.0-46.0); Hemoglobin 9.2 gm/dL (11.6-15.3); Mean Corpuscular HGB Conc 31.5 % (32.0-36.0); Mean Corpuscular Hemoglobin 28.7 pg (27.0-34.0); Mean Corpuscular Volume 91.1 fL (80.0-100.0); Mean Platelet Volume 8.2 fL (7.0-11.0); Platelet Count 82 th/mm3 (150-450); Red Blood Count 3.22 mil/mm3 (4.00-5.30); Red Cell Distribution Width 16.6 % (11.6-17.2); White Blood Count 10.4 th/mm3 (4.0-11.0)
[2018-03-29 06:29] LABS: Calcium 9.1 mg/dL (8.5-10.1); Carbon Dioxide 20.8 meq/L (21.0-32.0)
[2018-03-29] MEDS: Enoxaparin Inj 40 MG/0.4 ML Syringe SQ SCH (08:26)
[2018-03-29] MEDS: Carvedilol 12.5 MG Tablet PO SCH ×2 (08:27→20:32)
[2018-03-29] MEDS: predniSONE 10 MG Tablet PO SCH (08:27)
[2018-03-29] MEDS: Calcium Carbonate 500 MG Tablet PO SCH ×2 (08:27→20:32)
[2018-03-29] MEDS: Tacrolimus 0.5 MG Capsule PO SCH (08:27)
[2018-03-29] MEDS: Lipase/Protease/Amylase 24/76/120 DR Capsule PO SCH ×3 (08:28→17:07)
[2018-03-29] MEDS: Diphenoxylate/Atropine 2.5/0.025 MG Tablet PO SCH ×3 (08:28→17:07)
[2018-03-29] MEDS ORDERED: BELATACEPT IV.SIG SCH (08:30)
[2018-03-29] MEDS: Morphine Inj 4 MG/ML Vial IV.PUSH PRN ×4 (08:52→23:24)
[2018-03-29] MEDS: azaTHIOprine 50 MG Tablet PO SCH (10:16)
[2018-03-29] MEDS: Heparin Central Flush 100 UNIT/ML 5 ML Vial IV.FLUSH SCH (10:16)
[2018-03-29] MEDS: Senna/Docusate Sodium 8.6/50 MG Tablet PO SCH ×2 (10:17→20:32)
[2018-03-29] MEDS ORDERED: BELATACEPT IV.PUSH SCH (11:15)
--- NOTE | 2018-03-29 12:16 | P.PNIM ---
Subjective Interval history: Patient complains of upset stomach today, less likely this is related to her antibiotic therapy. She had a dose of Compazine which helped somewhat, she states that Phenergan p.o. is a better choice for her and in the past. She denies any fevers in the last 24 hours. Physical Exam Vital signs: Vital Signs 03/28/18 15:00 03/28/18 15:30 03/28/18 19:00 Temperature 97.6 F Pulse Rate 67 74 65 Respiratory Rate 16 Blood Pressure 147/93 H Pulse Oximetry 97 03/28/18 20:00 03/28/18 23:00 03/29/18 03:00 Temperature 98.4 F 97.9 F 98.4 F Pulse Rate 86 60 64 Respiratory Rate 16 16 16 Blood Pressure 142/78 H 155/97 H 169/92 H Pulse Oximetry 96 97 97 03/29/18 03:55 03/29/18 07:00 03/29/18 07:36 Temperature 98.5 F Pulse Rate 68 70 Respiratory Rate 18 Blood Pressure 142/91 H 143/90 H Pulse Oximetry 99 03/29/18 11:00 03/29/18 11:46 Temperature 98.9 F Pulse Rate 69 66 Respiratory Rate 18 Blood Pressure 126/77 Pulse Oximetry 96 Intake & Output 03/28/18 03/29/18 03/29/18 18:59 06:59 18:59 Intake Total 2320 / 2320 1979 / 1979 100 / 100 Output Total 1100 / 1100 2800 / 2800 Balance 1220 / 1220 -820 / -820 100 / 100 Weight 57.9 kg Intake: IV 1500 / 1500 1500 / 1500 100 / 100 NS Inj 1,000 ML @ 100 mls/hr IV 1000 / 1000 1000 / 1000 .CONT .Q10H RONALD Rx#:[id number] Zyvox 600 mg Premix 300 ML @ 300 / 300 300 / 300 300 mls/hr IV.SIG Q12H RONALD Rx#: [id number] Zosyn 4.5 GM Premix 4.5 gm In 200 / 200 200 / 200 100 / 100 100 ml @ 200 mls/hr IV.SIG Q6H RONALD Rx#:[id number] Oral 820 / 820 480 / 480 Output: Urine 1100 / 1100 2800 / 2800 Other: Date of Last Bowel Movement 03/27/18 03/28/18 # Bowel Movements 4 Narrative: GENERAL: AAOx3, no acute distress SKIN: Warm and dry. No rashes HEAD: Atruamtic, normocephalic. EYES: No scleral icterus. No injection or drainage. ENT: Moist mucous membranes, patent nares, no erythema of oropharynx. NECK: Supple, trachea midline. No JVD or lymphadenopathy. Normal thyroid. CARDIOVASCULAR: Regular rate and rhythm. No murmurs, gallops, or rubs. RESPIRATORY: Breath sounds clear equal bilaterally. No crackles or wheezes. No accessory muscle use. GASTROINTESTINAL: Abdomen soft, non-tender, nondistended, normal active bowel sounds MUSCULOSKELETAL: No cyanosis, or edema. NEURO: CN II-XII grossly intact, no focal deficits, no slurring of speech Results - Labs CBC & Chem 7: 03/29/18 05:25 03/29/18 05:25 Laboratory Results - last 24 hr 03/28/18 03/28/18 03/28/18 05:50 05:50 16:52 WBC RBC Hgb Hct MCV MCH MCHC RDW Plt Count MPV Sodium Potassium Chloride Carbon Dioxide Anion Gap BUN Creatinine Estimated GFR POC Glucose 285 H Random Glucose Calcium Tacrolimus 15.3 U BK Virus DNA PCR None detected 03/28/18 03/29/18 03/29/18 19:45 05:25 05:25 WBC 10.4 RBC 3.22 L Hgb 9.2 L Hct 29.3 L MCV 91.1 MCH 28.7 MCHC 31.5 L RDW 16.6 Plt Count 82 L D MPV 8.2 Sodium 134 L Potassium 5.0 Chloride 101 Carbon Dioxide 20.8 L Anion Gap 12 BUN 15 Creatinine 1.33 H Estimated GFR 41 L POC Glucose 334 H Random Glucose 406 H Calcium 9.1 Tacrolimus U BK Virus DNA PCR 03/29/18 03/29/18 03/29/18 05:37 07:40 11:47 WBC RBC Hgb Hct MCV MCH MCHC RDW Plt Count MPV Sodium Potassium Chloride Carbon Dioxide Anion Gap BUN Creatinine Estimated GFR POC Glucose 465 H* 295 H 219 H Random Glucose Calcium Tacrolimus U BK Virus DNA PCR Microbiology 03/27/18 20:00 Blood - Line Aerobic Blood Culture - Preliminary No growth in 2 days 03/27/18 20:00 Blood - Line Anaerobic Blood Culture - Preliminary No growth in 2 days 03/27/18 20:10 Blood - Line Aerobic Blood Culture - Preliminary No growth in 2 days 03/27/18 20:10 Blood - Line Anaerobic Blood Culture - Preliminary No growth in 2 days Assessment and Plan - Assessment (1) SIRS (systemic inflammatory response syndrome) Code(s): R65.10 - Systemic inflammatory response syndrome (SIRS) of non- infectious origin without acute organ dysfunction Status: Acute (2) H/O kidney transplant Code(s): Z94.0 - Kidney transplant status Status: Acute (3) Abdominal pain Code(s): R10.9 - Unspecified abdominal pain Status: Acute (4) On total parenteral nutrition (TPN) Code(s): Z78.9 - Other specified health status Status: Acute (5) Renal insufficiency Code(s): N28.9 - Disorder of kidney and ureter, unspecified Status: Acute (6) DM (diabetes mellitus) Code(s): E11.9 - Type 2 diabetes mellitus without complications Status: Acute - Plan Fever, SIRS Patient presented with leukocytosis and fever, source is unclear Chest x-ray was within normal limits, urinalysis showed no infection Patient is high risk due to immunocompromise state secondary to medications for renal transplant as well as shortened bowel Continue empiric coverage with Zyvox and Zosyn Blood cultures thus far negative Appreciate infectious disease consult h/o renal transplant Transplanted in June 2017 at [facility], Dr. Louis Continue home dose of Prograf, checking Prograf level (Dr. Patel) Appreciate transplant surgery consult Thrombocytopenia Patient has a history of thrombophilia with numbers up to 1.2 million, since admission she has trended downwards, ply = 82K today Hold Anagrelide until numbers returned to normal, consider every other day dosing after that Abdominal pain Patient has a history of large areas of bowel resection, multiple surgeries, pancreatectomy and splenectomy She allegedly has 260 cm of small bowel with no colon She has a history of gastroparesis related to adhesions and stenoses in the bowel, she takes TPN for this Dietitian made TPN recommendations, awaiting delivery Nausea Dyspepsia likely related to antibiotics combined with short gut syndrome Phenergan added to Zofran Type 2 diabetes Patient's currently hyperglycemic related to infection Accu-Cheks with sliding scale insulin coverage Diabetic diet DVT Prophylaxis Lovenox
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
--- NOTE | 2018-03-29 14:40 | P.CONID ---
History of Present Illness Service: Infectious disease Consult date: 03/29/18 Requesting Physician: Tariq Larson Reason for Consult: Evaluate patient with fever, status post kidney transplant Primary Care Provider: PROVIDER NON STAFF Chief Complaint: fever, left flank pain History of Present Illness: Patient seen and examined. Records reviewed. Records from [facility] reviewed. Patient is a 57-year-old female with a very complicated medical and surgical history, presented to the hospital per advice by her physician for evaluation of fever that started on the day of admission. Patient has had problem with her GI tract for a while. She has always had problem with constipation diarrhea , and she had chronic pancreatitis which was felt to be idiopathic according to the patient. 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 During that time also she had undergone Reza-en-Y duodenal jejunostomy, hepaticojejunostomy, pancreatico jejunostomy, and splenectomy. After that procedure she had GI problem and it looks like more for chronic constipation, and underwent another surgery in 2011 and had exploratory laparotomy, lysis of adhesions, closure of an enterotomy in the pancreaticobiliary limb, terminal ileal through distal sigmoid resection. She is always had problem with chronic abdominal pain and also carries a history of adult polycystic liver and kidney disease which were felt to be adding to her chronic pain. In 2013 she had another surgery and had extensive lysis of adhesion, left decortication, and nephrectomy. His developed renal failure, and in 2016 she had placement of a left arm AV graft which was complicated by hematoma. Dialysis was being discussed but the patient refused, and she subsequently underwent a right-sided living unrelated donor renal transplant with left next nephrectomy July 22, 2017. This was complicated by nausea and abdominal pain and she subsequently underwent another surgery August 262017 and had exploratory laparotomy, extensive lysis of adhesion which showed a dilated 15 cm sigmoid colon with diverticulum at the ileosigmoid anastomosis for which she underwent lysis of adhesions, revision of the ileocolic anastomosis, and closure of the abdomen. Her symptoms reportedly did not improved, and she was readmitted in September 2017 and was diagnosed to have hydronephrosis on the right transplanted kidney, septic shock with E. coli ESBL positive bacteremia, as well as extensive thrombosis of the left femoral vein. Patient subsequently underwent her last surgery in December and had exploratory laparotomy, lysis of adhesions, division of the hepatic O jejunostomy limb, resection of the stricture segment just distal to the duodenal jejunal anastomosis, takedown of the duodenal jejunal anastomosis, closure of gastric antrum and posterior [id number] gastrojejunostomy and side to side jejunojejunostomy for reconstruction of the biliary limb. She was apparently left with a 200 cm small bowel. Patient states that chronically she has pain which is mostly on her left side. She is always had problems with chronic nausea and diarrhea. Patient lives here in [place] and has been back here in [place] this February, and she had a follow- up visit with the surgeon on March 24, 2018. She developed fever on the day of admission, and she has not really had any fevers. She denies any respiratory complaint. There is been no change in her GI symptoms. She denies any dysuria or any back pain. She called her surgeon who advised her to go to the hospital for further evaluation and treatment. Highest temperature since presentation was 100.9. Her WBC was initially 13,000 and is down to normal. I compared her comprehensive metabolic profile from her labs in [place] and they were similar. Her urinalysis is unremarkable. Chest x-ray is normal. CT of the abdomen and pelvis without IV contrast showing status post cholecystectomy with intrahepatic pneumobilia. There are some numerous subcentimeter hypodensity lesions in both lobes of the liver mostly in the right lobe. She has had bilateral nephrectomies with some mild hydronephrosis of the transplanted kidney without perirenal fluid collections or stones. She has had near total colectomy with multiple suture lines in the left upper quadrant, several loops of small bowel in the left upper quadrant which are marginally dilated without definitive evidence for small bowel obstruction. Her blood cultures are currently negative. She is currently on Zosyn and Zyvox. Infectious disease consultation has been requested to assist with evaluation and treatment. Patient has been afebrile. And she has no new complaints. Review of Systems Constitutional: Reports fever(s), Denies chills, Denies headache(s) Eyes: Denies discharge, Denies dry eyes Ears, Nose, Mouth, and Throat: Denies dry mouth, Denies mouth pain, Denies nasal discharge, Denies nasal obstruction, Denies sore throat Cardiovascular: Denies chest pain, Denies shortness of breath Gastrointestinal: Reports abdominal pain, Reports loose stools, Reports nausea, Denies difficulty swallowing, Denies pain with swallowing, Denies vomiting Genitourinary: Denies abnormal vaginal bleeding, Denies difficulty urinating, Denies painful urination Musculoskeletal: Denies joint pain, Denies joint swelling Skin/Breast: Denies rash, Denies sores, Denies wounds Neurologic: Denies headache(s) PMF - History History Provided By: Patient - Medical History Medical History: Medical History (Last Updated 03/29/18 @ 14:35 by Pam Austin MD) Diabetes Dumping syndrome Fracture, femur Fracture, femur GERD (gastroesophageal reflux disease) Gastroparesis History of hysterectomy Kidney failure Liver function failure On total parenteral nutrition (TPN) - Surgical History Surgical History: Surgical History (Last Reviewed 03/29/18 @ 14:35 by Pam Austin MD) H/O splenectomy History of colectomy History of intestinal surgery History of oophorectomy History of pancreatectomy Kidney transplant recipient Surgical procedure on lower extremity within past 6 months - Tobacco History Second Hand Smoke Exposure: No Tobacco Use In Past 30 Days: No Smoking Status: Former smoker Tobacco Type: Cigarettes - Alcohol History How Often Do You Have a Drink Containing Alcohol: Never - Substance Use History Substance History: No History of Abuse - Travel History Recent Travel in the [place] Within the Last 8 Weeks: No Recent Travel Out of the Country Within the Last 8 Weeks: No - Immunization History Tetanus Immunization: Unsure Hx Influenza Vaccine This Season: Yes Medications and Allergies Active Medications: Active Medications Acetaminophen (Tylenol) 650 mg PO Q4H PRN PRN Reason: Temp > 100.4 Al Hydroxide/Mg Hydroxide (Milk Of Magnmilly Liq) 30 ml PO Q12H PRN PRN Reason: Mild Constipation Lipase/Protease/Amylase (Donovan Weinberg 24/76/120) 1 cap PO TIDAC [facility] Last Admin: 03/29/18 11:54 Dose: 1 cap Anagrelide HCl (Agrylin) 0.5 mg PO Q12H [facility] Last Admin: 03/29/18 10:43 Dose: Not Given Atorvastatin Calcium (Lipitor) 20 mg PO DAILY [facility] Last Admin: 03/29/18 08:27 Dose: 20 mg Azathioprine (Imuran) 100 mg PO DAILY [facility] Last Admin: 03/29/18 10:16 Dose: Not Given Bisacodyl (Dulcolax Supp) 10 mg RECTAL DAILY PRN PRN Reason: SEVERE CONSITIPATION Calcium Carbonate (Oscal) 500 mg PO BID [facility] Last Admin: 03/29/18 08:27 Dose: 500 mg Calcium Carbonate (Tums Chew) 500 mg CHEW Q2H PRN PRN Reason: DYSPEPSIA Carvedilol (Coreg) 12.5 mg PO BID [facility] Last Admin: 03/29/18 08:27 Dose: 12.5 mg Clonidine HCl (Catapres) 0.1 mg PO Q6H PRN PRN Reason: SBP>160, DBP>90 Dextrose (D50w Vial) 50 ml IV.PUSH UNSCH PRN PRN Reason: PER HYPOGLYCEMIA PROTOCOL Diphenhydramine HCl (Benadryl) 25 mg PO Q6H PRN PRN Reason: ITCHING Diphenhydramine HCl (Benadryl Inj) 25 mg IV.PUSH Q4H PRN PRN Reason: ITCHING Last Admin: 03/29/18 08:57 Dose: 25 mg Diphenoxylate HCl/Atropine (Lomotil) 1 tab PO TID [facility] Last Admin: 03/29/18 12:19 Dose: 1 tab Enoxaparin Sodium (Lovenox Inj) 40 mg SQ DAILY [facility] Last Admin: 03/29/18 08:26 Dose: 40 mg Glucagon (Glucagon Inj) 1 mg OTHER PRN PRN PRN Reason: for Hypoglycemia Protocol Heparin Sodium (Porcine) (Heparin Central Flush) 0 unit IV.FLUSH PRN PRN PRN Reason: Flush each lumen Last Admin: 03/28/18 05:44 Dose: 250 unit Heparin Sodium (Porcine) (Heparin Central Flush) 0 unit IV.FLUSH DAILY [facility] Last Admin: 03/29/18 10:16 Dose: 500 unit Hydromorphone HCl (Dilaudid Pf Inj) 1 mg IV.PUSH Q4H PRN PRN Reason: PAIN 6-10 Last Admin: 03/28/18 23:00 Dose: 1 mg Linezolid (Zyvox 600 Mg Premix) 300 mls @ 300 mls/hr IV.SIG Q12H [facility] Last Infusion: 03/29/18 12:56 Dose: Infused Sodium Chloride (Ns Inj) 1,000 mls @ 100 mls/hr IV.CONT .Q10H [facility] Last Admin: 03/29/18 04:25 Dose: 100 mls/hr Piperacillin/Tazobactam/Dextrose (Zosyn 4.5 Gm Premix) 4.5 gm in 100 mls @ 200 mls/hr IV.SIG Q6H [facility] Last Infusion: 03/29/18 09:00 Dose: Infused Insulin Aspart (Novolog Insulin Correctional Sugar Inj) 0 unit SQ ACHS [facility]; Protocol Last Admin: 03/29/18 11:54 Dose: 3 unit Lactulose (Lactulose Liq) 30 ml PO DAILY PRN PRN Reason: SEVERE CONSITIPATION Morphine Sulfate (Morphine Inj) 4 mg IV.PUSH Q4H PRN PRN Reason: PAIN SCALE 6 TO 10 Last Admin: 03/29/18 08:52 Dose: 4 mg Ondansetron HCl (Zofran Inj) 4 mg IV.PUSH Q6H PRN PRN Reason: NAUSEA OR VOMITING Last Admin: 03/29/18 08:31 Dose: 4 mg Pantoprazole Sodium (Protonix) 40 mg PO BID [facility] Last Admin: 03/29/18 08:28 Dose: 40 mg Pt Own - Belatacept 0 each IV.PUSH Q30D [facility] Prednisone (Deltasone) 10 mg PO DAILY [facility] Last Admin: 03/29/18 08:27 Dose: 10 mg Promethazine HCl (Phenergan) 25 mg PO Q4H PRN PRN Reason: NAUSEA OR VOMITING Senna/Docusate Sodium (Saray-Colace) 1 tab PO BID [facility] Last Admin: 03/29/18 10:17 Dose: Not Given Sennosides (Senokot) 17.2 mg PO Q12H PRN PRN Reason: Moderate Constipation Sodium Chloride (Ns Flush) 0 ml IV.FLUSH DAILY [facility] Last Admin: 03/29/18 10:16 Dose: 10 ml Sodium Chloride (Ns Flush) 0 ml IV.FLUSH PRN PRN PRN Reason: FLUSH AFTER USING IV ACCESS Last Admin: 03/28/18 05:45 Dose: 10 ml Tacrolimus (Prograf) 4 mg PO Q12H [facility] Last Admin: 03/29/18 12:19 Dose: 4 mg Tacrolimus (Prograf) 0.5 mg PO DAILY [facility] Last Admin: 03/29/18 08:27 Dose: 0.5 mg Allergies Allergy/AdvReac Type Severity Reaction Status Date / Time metronidazole [From Flagyl] Allergy Mild Hives Verified 03/27/18 18:27 oxycodone Allergy Mild Redness of Verified 03/27/18 18:27 Skin oxytetracycline Allergy Mild Hives Verified 03/27/18 18:27 [From Terramycin] Home Medications Medication Instructions Recorded Confirmed Type Phenergan 25 mg PO Q6-8H PRN 03/27/18 03/27/18 History acetaminophen 650 mg PO Q4H PRN 03/27/18 03/27/18 History anagrelide 0.5 mg PO Q12H 03/27/18 03/27/18 History atorvastatin 20 mg PO DAILY 03/27/18 03/27/18 History azathioprine [Imuran] 100 mg PO DAILY 03/27/18 03/27/18 History belatacept 10 mg/kg IV QMONTH 03/27/18 03/27/18 History calcium carbonate 1 tab PO BID 03/27/18 03/27/18 History carvedilol 12.5 mg PO BID 03/27/18 03/27/18 History diphenoxylate-atropine [Lomotil] 1 tab PO TID 03/27/18 03/27/18 History enoxaparin 40 mg SUBCUT DAILY 03/27/18 03/27/18 History ergocalciferol (vitamin D2) 50,000 unit PO 3XW 03/27/18 03/27/18 History hydromorphone 2 mg PO Q6H PRN 03/27/18 03/27/18 History insulin glargine 12 unit SUBCUT QNOON 03/27/18 03/27/18 History insulin lispro 1 sliding scale dose SUBCUT UD 03/27/18 03/27/18 History [id number] [Creon] 1 cap PO TIDAC 03/27/18 03/27/18 History ondansetron 4 mg PO Q8H PRN 03/27/18 03/27/18 History pantoprazole 40 mg PO BID 03/27/18 03/27/18 History prednisone 10 mg PO DAILY 03/27/18 03/27/18 History prochlorperazine maleate 10 mg PO Q6-8H PRN 03/27/18 03/27/18 History [Compazine] tacrolimus 0.5 mg PO DAILY 03/27/18 03/27/18 History tacrolimus [Prograf] 4 mg PO Q12H 03/27/18 03/27/18 History Exam Vital signs: Vital Signs 03/28/18 15:00 03/28/18 15:30 03/28/18 19:00 Temperature 97.6 F Pulse Rate 67 74 65 Respiratory Rate 16 Blood Pressure 147/93 H Pulse Oximetry 97 03/28/18 20:00 03/28/18 23:00 03/29/18 03:00 Temperature 98.4 F 97.9 F 98.4 F Pulse Rate 86 60 64 Respiratory Rate 16 16 16 Blood Pressure 142/78 H 155/97 H 169/92 H Pulse Oximetry 96 97 97 03/29/18 03:55 03/29/18 07:00 03/29/18 07:36 Temperature 98.5 F Pulse Rate 68 70 Respiratory Rate 18 Blood Pressure 142/91 H 143/90 H Pulse Oximetry 99 03/29/18 11:00 03/29/18 11:46 Temperature 98.9 F Pulse Rate 69 66 Respiratory Rate 18 Blood Pressure 126/77 Pulse Oximetry 96 Intake & Output 03/28/18 03/29/18 03/29/18 18:59 06:59 18:59 Intake Total 2320 / 2320 1979 / 1979 400 / 400 Output Total 1100 / 1100 2800 / 2800 Balance 1220 / 1220 -820 / -820 400 / 400 Weight 57.9 kg Intake: IV 1500 / 1500 1500 / 1500 400 / 400 NS Inj 1,000 ML @ 100 mls/hr IV 1000 / 1000 1000 / 1000 .CONT .Q10H [facility] Rx#:[id number] Zyvox 600 mg Premix 300 ML @ 300 / 300 300 / 300 300 / 300 300 mls/hr IV.SIG Q12H [facility] Rx#: [id number] Zosyn 4.5 GM Premix 4.5 gm In 200 / 200 200 / 200 100 / 100 100 ml @ 200 mls/hr IV.SIG Q6H [facility] Rx#:[id number] Oral 820 / 820 480 / 480 Output: Urine 1100 / 1100 2800 / 2800 Other: Date of Last Bowel Movement 03/27/18 03/28/18 # Bowel Movements 4 Results - Labs CBC & Chem 7: 03/29/18 05:25 03/29/18 05:25 Labs: Laboratory Results - last 24 hr 03/28/18 03/28/18 03/28/18 05:50 16:52 19:45 WBC RBC Hgb Hct MCV MCH MCHC RDW Plt Count MPV Sodium Potassium Chloride Carbon Dioxide Anion Gap BUN Creatinine Estimated GFR POC Glucose 285 H 334 H Random Glucose Calcium Tacrolimus U BK Virus DNA PCR None detected 03/29/18 03/29/18 03/29/18 05:25 05:25 05:37 WBC 10.4 RBC 3.22 L Hgb 9.2 L Hct 29.3 L MCV 91.1 MCH 28.7 MCHC 31.5 L RDW 16.6 Plt Count 82 L D MPV 8.2 Sodium 134 L Potassium 5.0 Chloride 101 Carbon Dioxide 20.8 L Anion Gap 12 BUN 15 Creatinine 1.33 H Estimated GFR 41 L POC Glucose 465 H* Random Glucose 406 H Calcium 9.1 Tacrolimus U BK Virus DNA PCR 03/29/18 03/29/18 03/29/18 07:40 11:47 12:00 WBC RBC Hgb Hct MCV MCH MCHC RDW Plt Count MPV Sodium Potassium Chloride Carbon Dioxide Anion Gap BUN Creatinine Estimated GFR POC Glucose 295 H 219 H Random Glucose Calcium Tacrolimus 10.6 U BK Virus DNA PCR - Imaging Abdomen/Pelvis CT 03/27/18 00:00 CONCLUSION: 1. Status post cholecystectomy with prominent intrahepatic pneumobilia. Numerous subcentimeter hypodensities lesions in both lobes of the liver, most prominently in the right lobe. Although nonspecific, cannot exclude hepatic abscesses in the appropriate clinical setting. Comparisons with prior CT examinations would be beneficial to determine chronicity. 2. 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 Mild hydronephrosis of the transplant kidney without perirenal fluid collections or radiopaque calculi. 3. Status post near total colectomy with multiple suture lines in the left upper quadrant. Several loops of small bowel in the left upper quadrant are marginally dilated without definitive evidence for bowel obstruction. 4. Additional ancillary findings, as above. Chest X-Ray 03/27/18 19:28 CONCLUSION: No acute cardiopulmonary disease. There is no evidence of pneumonia. Assessment and Plan - Plan Impression Febrile illness, non-localizing, temps better Hx chronic abdominal pain, N/V, diarrhea, Dumping syndrome - has had multiple exploratory laparotomy, last one December - CT A/P no abscess, no obstruction S/P renal transplant June 2017, on Prograf Recommendation Follow C/S Monitor temps She is on Zosyn and Zyvox Will determine course of Rx based on results of her work-up So far work-up is non-localizing I will follow along with you Thank you for this consultation
[2018-03-29 15:32] LABS: Reticulocyte Percent 1.3 % (0.4-3.0)
[2018-03-29 15:36] LABS: Lactate Dehydrogenase 130 U/L (84-246)
--- NOTE | 2018-03-29 16:38 | US ---
EXAM DATE: 03/29/2018 12:00 AM EDT AGE/SEX: 57 years / Female INDICATIONS: Right lower abdomen kidney transplant. Increased lab values. CLINICAL DATA: This is the patient's initial encounter. Patient reports that signs and symptoms have been present for 2 days and indicates a pain score of 0/10. MEDICAL/SURGICAL HISTORY: Diabetes. Gastroparesis. GERD. Dumping syndrome. Renal failure. Live r function failure. TPN. Femur fracture. Hysterectomy. Splenectomy. Colectomy. Oophorectomy. Pancre atectomy. Right kidney transplant. ORIF right [place]. [place] [facility] [place] CONTRAST[place]/27/2018. . MEASUREMENTS: Transplant Kidney:__11.5 x 4.4 x 5.1 cm Location:__Right lower quadrant Arcuate Arteries Resistive Index: Upper - 25 cm/sec Mid - 30 cm/sec Lower - 14 cm/sec Main Renal Artery Velocity:__101 Main Renal Vein:__Patent External Iliac Artery Velocity:__188 cm/sec External Iliac Vein:__Patent cm/sec FINDINGS: Transplant Kidney: There is mild dilatation of the intrarenal collecting system. A simple cyst is no joaquín measuring 9.3 mm at the lateral aspect of the kidney. No peritransplant fluid. Urinary Bladder: Within normal limits given the degree of distension. Other: None. CONCLUSION: 1. Very mild hydronephrosis of the transplant kidney. 2. 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 Electronically signed by: Eric Glasgow MD 03/29/2018 4:37 PM EDT
--- NOTE | 2018-03-29 17:18 | ECG ---
Date Performed: 03/29/2018 Time Performed: 07:54:06 PTAGE: 57 years EKG: Sinus rhythm . Possible anterior infarct - age undetermined Low QRS voltages in precordial leads Abnormal ECG NO PREVIOUS TRACING DOCTOR: Lanre Veliz Interpretating Date/Time 03/29/2018 17:13:31
[2018-03-29] MEDS ORDERED: TPN Fluid 1 Liter 1,000 ML IV.SIG SCH (17:30)
[2018-03-29] MEDS: HYDROmorphone PF Inj 2 MG/ML Vial IV.PUSH PRN (21:33)
[2018-03-30] MEDS: Sod Chloride 0.9% Inj 1,000 ML IV.CONT SCH ×5 (01:22→23:49)
[2018-03-30] MEDS: Morphine Inj 4 MG/ML Vial IV.PUSH PRN ×5 (03:26→18:35)
[2018-03-30] MEDS: Piperacil/Tazo 4.5 GM Premix 4.5 GM/100 ML BAG IV.SIG SCH ×2 (04:26→08:42)
[2018-03-30] MEDS: Lipase/Protease/Amylase 24/76/120 DR Capsule PO SCH ×3 (07:58→18:24)
[2018-03-30] MEDS: Insulin NovoLOG Aspart Correctional Sugar Inj SQ SCH (07:58)
[2018-03-30] MEDS ORDERED: Insulin Detemir Inj 1,000 UNIT/10 ML Vial SQ ONE (08:00)
[2018-03-30] MEDS: Calcium Carbonate 500 MG Tablet PO SCH ×2 (08:36→22:11)
[2018-03-30] MEDS: Carvedilol 12.5 MG Tablet PO SCH ×2 (08:36→22:11)
[2018-03-30] MEDS: Diphenoxylate/Atropine 2.5/0.025 MG Tablet PO SCH ×3 (08:37→18:24)
[2018-03-30] MEDS: Enoxaparin Inj 40 MG/0.4 ML Syringe SQ SCH (08:37)
[2018-03-30] MEDS: predniSONE 10 MG Tablet PO SCH (08:37)
[2018-03-30] MEDS: Heparin Central Flush 100 UNIT/ML 5 ML Vial IV.FLUSH SCH (08:46)
[2018-03-30] MEDS: Senna/Docusate Sodium 8.6/50 MG Tablet PO SCH ×2 (08:46→22:11)
--- NOTE | 2018-03-30 10:09 | P.PNIM ---
Subjective Interval history: The patient was complaining of diffuse abdominal pain. She said she was very nauseous. She says her bowel movements are becoming formed. She says she normally takes insulin in her TPN. Discussed with nursing. Physical Exam Vital signs: Vital Signs 03/29/18 11:00 03/29/18 11:46 03/29/18 14:56 Temperature 98.9 F 98.5 F Pulse Rate 69 66 67 Respiratory Rate 18 16 Blood Pressure 126/77 132/90 Pulse Oximetry 96 03/29/18 15:00 03/29/18 19:52 03/29/18 20:30 Temperature 98.3 F Pulse Rate 65 67 70 Respiratory Rate 18 Blood Pressure 144/89 H Pulse Oximetry 99 03/29/18 22:03 03/29/18 23:25 03/29/18 23:26 Temperature 97.8 F Pulse Rate 62 Respiratory Rate 16 18 18 Blood Pressure 156/93 H Pulse Oximetry 100 03/30/18 00:10 03/30/18 03:00 03/30/18 03:28 Temperature 97.7 F Pulse Rate 59 L 65 Respiratory Rate 18 18 Blood Pressure 167/91 H Pulse Oximetry 98 03/30/18 04:23 03/30/18 08:20 Temperature Pulse Rate 65 71 Respiratory Rate 16 Blood Pressure 193/103 H Pulse Oximetry 100 Intake & Output 03/29/18 03/30/18 03/30/18 18:59 06:59 18:59 Intake Total 2940 / 2940 2990 / 2990 Output Total 2200 / 2200 3600 / 3600 Balance 740 / 740 -610 / -610 Weight 58.2 kg Intake: IV 1500 / 1500 2750 / 2750 NS Inj 1,000 ML @ 100 mls/hr IV 1000 / 1000 2000 / 2000 .CONT .Q10H [facility] Rx#:[id number] Intralipid 20% Inj 250 ML @ 31. 250 / 250 25 mls/hr IV.SIG Q24H [facility] Rx#: [id number] Zyvox 600 mg Premix 300 ML @ 300 / 300 300 / 300 300 mls/hr IV.SIG Q12H [facility] Rx#: [id number] Zosyn 4.5 GM Premix 4.5 gm In 200 / 200 200 / 200 100 ml @ 200 mls/hr IV.SIG Q6H [facility] Rx#:[id number] Oral 1440 / 1440 240 / 240 Output: Urine 2200 / 2200 3600 / 3600 Other: Date of Last Bowel Movement 03/29/18 03/29/18 # Bowel Movements 3 Narrative: GENERAL: Well-nourished, well-developed patient. SKIN: Warm and dry. HEAD: Normocephalic. EYES: No scleral icterus. No injection or drainage. NECK: Supple, trachea midline. No JVD or lymphadenopathy. CARDIOVASCULAR: Regular rate and rhythm without murmurs, gallops, or rubs. Ward catheter on the right internal jugular. RESPIRATORY: Breath sounds equal bilaterally. No accessory muscle use. GASTROINTESTINAL: Abdomen soft, mildly tender, nondistended. Multiple surgical scar there is a right lower abdominal scar, all are healed. EXTREMITIES: No edema NEUROLOGICAL: Awake, alert, and oriented x 3. Non-focal. Results - Labs CBC & Chem 7: 03/29/18 05:25 03/29/18 16:45 Laboratory Results - last 24 hr 03/28/18 03/29/18 03/29/18 05:50 05:25 05:25 Smear Path Review Retic Count 1.3 Absolute Retic 43.5 Haptoglobin POC Glucose Random Glucose Lactate Dehydrogenase Tacrolimus U BK Virus DNA PCR None detected 03/29/18 03/29/18 03/29/18 05:25 11:47 12:00 Smear Path Review Retic Count Absolute Retic Haptoglobin 433 H POC Glucose 219 H Random Glucose Lactate Dehydrogenase 130 Tacrolimus 10.6 U BK Virus DNA PCR 03/29/18 03/29/18 03/29/18 16:34 16:45 20:39 Smear Path Review Retic Count Absolute Retic Haptoglobin POC Glucose 455 H* 373 H Random Glucose 453 H* Lactate Dehydrogenase Tacrolimus U BK Virus DNA PCR 03/30/18 03/30/18 03/30/18 01:26 07:23 07:27 Smear Path Review Retic Count Absolute Retic Haptoglobin POC Glucose 316 H Greater than 600 H* Greater than 600 H* Random Glucose Lactate Dehydrogenase Tacrolimus U BK Virus DNA PCR 03/30/18 09:00 Smear Path Review Retic Count Absolute Retic Haptoglobin POC Glucose Greater than 600 H* Random Glucose Lactate Dehydrogenase Tacrolimus U BK Virus DNA PCR Microbiology 03/27/18 20:00 Blood - Line Aerobic Blood Culture - Preliminary No growth in 2 days 03/27/18 20:00 Blood - Line Anaerobic Blood Culture - Preliminary No growth in 2 days 03/27/18 20:10 Blood - Line Aerobic Blood Culture - Preliminary No growth in 2 days 03/27/18 20:10 Blood - Line Anaerobic Blood Culture - Preliminary No growth in 2 days - Imaging Impressions Renal Ultrasound 03/29/18 00:00 CONCLUSION: 1. Very mild hydronephrosis of the transplant kidney. 2. 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 Assessment and Plan - Assessment (1) SIRS (systemic inflammatory response syndrome) Code(s): R65.10 - Systemic inflammatory response syndrome (SIRS) of non- infectious origin without acute organ dysfunction Status: Acute (2) H/O kidney transplant Code(s): Z94.0 - Kidney transplant status Status: Acute (3) Abdominal pain Code(s): R10.9 - Unspecified abdominal pain Status: Acute (4) On total parenteral nutrition (TPN) Code(s): Z78.9 - Other specified health status Status: Acute (5) Renal insufficiency Code(s): N28.9 - Disorder of kidney and ureter, unspecified Status: Acute (6) DM (diabetes mellitus) Code(s): E11.9 - Type 2 diabetes mellitus without complications Status: Acute - Plan Fever, SIRS Patient presented with leukocytosis and fever, source is unclear Chest x-ray was within normal limits, urinalysis showed no infection Patient is high risk due to immunocompromise state secondary to medications for renal transplant as well as shortened bowel Continue empiric coverage with Zyvox and Zosyn Blood cultures thus far negative Appreciate infectious disease consult H/o renal transplant Transplanted in June 2017 at [facility], Dr. Louis Continue Prograf, adjusted by nephrology Appreciate transplant surgery consult Thrombocytopenia Patient has a history of thrombophilia with numbers up to 1.2 million, since admission she has trended downwards Hold Anagrelide until numbers return to normal, consider every other day dosing after that -labs pending. -consider hematology consult. Abdominal pain Patient has a history of large areas of bowel resection, multiple surgeries, pancreatectomy and splenectomy She allegedly has 260 cm of small bowel with no colon She has a history of gastroparesis related to adhesions and stenoses in the bowel, she takes TPN for this Dietitian made TPN recs. Will need adjustment for hyperglycemia. Nausea Dyspepsia likely related to antibiotics combined with short gut syndrome Phenergan added to Zofran ODT. Type 2 diabetes Patient's currently hyperglycemic related to infection. Poorly controlled. Accu-Cheks with sliding scale insulin coverage Diabetic diet -add prandial insulin. -Levemir 20 units daily. -consider Regular insulin 35 units in TPN as pt does at home. -check labs and transfer to unit if evidence of DKA. DVT Prophylaxis Lovenox
--- NOTE | 2018-03-30 10:58 | P.DIET ---
Nutritional Evaluation Type of nutrition evaluation: initial Nutrition consult regarding: TPN/PPN Nutrition screening: [facility] (03/28/18 [facility] TPN/PPN h/o TPN use at home) Screening comments: 03/30 [facility]: please recommend TPN for hyperglycemia Please note: there is no specific hyperglycemia TPN formula. It is recommend ed that you add insulin to the TPN Subjective Subjective Comments: Pt says she eats very little at home-usually a slice of toast and a protein shake daily. Pt says meats and vegetables "go right through me". Pt declines Beneprotein packets and says she has an aversion to adding powder to drinks. Pt is receptive to drinking Glucerna Shakes and says she has had these in the past. Pt's home TPN runs for 12-hours daily so she can "be up moving around". Objective - Diagnosis Fever, Renal Transplant - Objective [place] body weight: 61.4 kg % IBW: 91 Body Weight Used for Calculations: Actual (55.9kg) Energy Needs - Lower Range (kCal/kg): 30 Energy Needs - Upper Range (kCal/kg): 35 Lower Limit kCal/kg (kCals): 1,677 Upper Limit kCal/kg (kCals): 1,957 Lower Limit Protein Factor (Grams per Kg): 1.1 Upper Limit Protein Factor (Grams per Kg): 1.4 Lower Protein Needs (Protein): 62 Upper Protein Needs (Protein): 78 Dietitian Reviewed in Medical Record: Current diet, Curent medications, Intake & Output, Labs, Medical history Diet Order: Regular Oral Diet Intake Amount: Poor <50% Objective Comments: PMH: DM, Dumping Syndrome, Gastroparesis related to adhesions and stenosis of the bowel-on TPN at home, GERD, chronic diarrhea, h/o bilateral nephrectomy and Right Kidney transplant 06/2017 ; h/o splenectomy, colectomy, oophrectomy, pancreatectomy, liver function failure; intestinal surgery 01/20/18-pt has 260cm of small bowel w/No Colon Labs Include: Creatinine 1.32, estGFR 41, Glucose 391, POC Glucose 369, 226; Na 130. K 5.1, Phosphorus 1.7 Meds Include: Creon, Lipitor, Imuran, Prograf, Oscal, Coreg, Lomotil, Novolog, Zofran, Protonix, Prednisone Assessment Assessment: Pt is at high nutrition risk r/t medical history and need for TPN. Pt tolerates small amounts of po intake and no appetite. Send Glucerna Shakes TID(= 220 kcal and 10g protein per serving). For PPN, Rec CLINIMIX 4.25/5 @ 70ml/hr and 20% Lipids @ 10ml/hr to offer 71g Protein and 1051 kcal providing 100% for protein needs and 63% for kcal needs. For TPN, Rec CLINIMIX 5/20 @ 65ml/hr and 20% Lipids 250ml @ 31.25ml/hr daily over 8-hours to offer 78g Protein and 1873 kcal. GUR for TPN is 4. Monitor labs/electrolytes. Rec a TG level is setting of TPN. Additional Recs to follow r/t clinical course. Recommendations: 1. Send Glucerna Shakes TID 2. For PPN, Rec CLINIMIX 4.25/5 @ 70ml/hr and 20% Lipids @ 10ml/hr 3. For TPN, Rec CLINIMIX 5/20 @ 65ml/hr and 20% Lipids 250ml @ 31.25ml/hr daily over 8-hours 4. Rec TG level in setting of TPN 5. Additional Recs to follow r/t clinical course Dietitian to Monitor: Lab values, Electrolytes, Renal labs, Liver enzymes, Glucose level, Supplement acceptance, Intake & Output, Diet tolerance, TPN/PPN tolerance, Weight change, PO Intake, Medical course
[2018-03-30 10:59] LABS: Baso # (Auto) 0.1 th/mm3 (0.0-0.2); Baso % (Auto) 0.7 % (0.0-2.0); Eos # (Auto) 0.1 th/mm3 (0.0-0.4); Eos % (Auto) 0.8 % (0.0-4.0); Hematocrit 29.7 % (35.0-46.0); Hemoglobin 8.5 gm/dL (11.6-15.3); Lymph # (Auto) 2.2 th/mm3 (1.0-4.8); Lymph % (Auto) 22.1 % (9.0-44.0); Mean Corpuscular Hemoglobin 28.5 pg (27.0-34.0); Mean Platelet Volume 10.2 fL (7.0-11.0); Mono # (Auto) 0.9 th/mm3 (0.0-0.9); Mono % (Auto) 9.2 % (0.0-8.0); Neut # (Auto) 6.8 th/mm3 (1.8-7.7); Neut % (Auto) 67.2 % (16.0-70.0); Platelet Count 84 th/mm3 (150-450); Red Cell Distribution Width 17.5 % (11.6-17.2); White Blood Count 10.1 th/mm3 (4.0-11.0)
[2018-03-30 11:21] LABS: Calcium 9.4 mg/dL (8.5-10.1)
[2018-03-30] MEDS ORDERED: Insulin Regular (For Infusion) 100 UNIT in Sodium Chlor 0.9% Inj 99 ML IV.CONT PRN (11:28)
[2018-03-30] MEDS ORDERED: Potassium Chlor 20 mEq Premix 20 MEQ/100 ML PIGGYBACK IV.SIG PRN ×6 (11:28)
[2018-03-30] MEDS ORDERED: Potassium Chlor 40 mEq Premix 40 MEQ/100 ML PIGGYBACK IV.SIG PRN ×2 (11:28)
[2018-03-30] MEDS ORDERED: Sodium Phosphate Inj 15 MMOL in Sodium Chlor 0.9% Inj 100 ML IV.SIG PRN (11:28)
[2018-03-30 11:43] LABS: Mean Corpuscular HGB Conc 28.8 % (32.0-36.0)
[2018-03-30 11:45] LABS: Acanthocytes Occ; Ovalocytes 1+
--- NOTE | 2018-03-30 15:11 | P.PNNP ---
Subjective Interval history: Patient has TPN and blood sugar was above 900 she is transferred to intensive care unit for insulin drip sodium dropped to 125 creatinine 1.7 patient is going to the bathroom frequently Physical Exam Vital signs: Vital Signs 03/29/18 19:52 03/29/18 20:30 03/29/18 22:03 Temperature 98.3 F Pulse Rate 67 70 Respiratory Rate 18 16 Blood Pressure 144/89 H Pulse Oximetry 99 03/29/18 23:25 03/29/18 23:26 03/30/18 00:10 Temperature 97.8 F Pulse Rate 62 59 L Respiratory Rate 18 18 Blood Pressure 156/93 H Pulse Oximetry 100 03/30/18 03:00 03/30/18 03:28 03/30/18 04:23 Temperature 97.7 F Pulse Rate 65 65 Respiratory Rate 18 18 Blood Pressure 167/91 H Pulse Oximetry 98 03/30/18 07:00 03/30/18 08:20 03/30/18 11:00 Temperature 97.4 F L Pulse Rate 70 71 64 Respiratory Rate 16 16 Blood Pressure 193/103 H 162/104 H Pulse Oximetry 100 100 Intake & Output 03/29/18 03/30/18 03/30/18 18:59 06:59 18:59 Intake Total 2940 / 2940 2990 / 2990 100 / 100 Output Total 2200 / 2200 3600 / 3600 Balance 740 / 740 -610 / -610 100 / 100 Weight 58.2 kg Intake: IV 1500 / 1500 2750 / 2750 100 / 100 NS Inj 1,000 ML @ 100 mls/hr IV 1000 / 1000 2000 / 2000 .CONT .Q10H [facility] Rx#:[id number] Intralipid 20% Inj 250 ML @ 31. 250 / 250 25 mls/hr IV.SIG Q24H [facility] Rx#: [id number] Zyvox 600 mg Premix 300 ML @ 300 / 300 300 / 300 300 mls/hr IV.SIG Q12H [facility] Rx#: [id number] Zosyn 4.5 GM Premix 4.5 gm In 200 / 200 200 / 200 100 / 100 100 ml @ 200 mls/hr IV.SIG Q6H [facility] Rx#:[id number] Oral 1440 / 1440 240 / 240 Output: Urine 2200 / 2200 3600 / 3600 Other: Date of Last Bowel Movement 03/29/18 03/29/18 # Bowel Movements 3 Narrative: GENERAL: Well-nourished, well-developed patient. SKIN: Warm and dry. HEAD: Normocephalic. EYES: No scleral icterus. No injection or drainage. NECK: Supple, trachea midline. No JVD or lymphadenopathy. CARDIOVASCULAR: Regular rate and rhythm without murmurs, gallops, or rubs. Ward catheter on the right internal jugular. RESPIRATORY: Breath sounds equal bilaterally. No accessory muscle use. GASTROINTESTINAL: Abdomen soft, mildly tender, nondistended. Multiple surgical scar there is a right lower abdominal scar, all are healed. EXTREMITIES: No edema NEUROLOGICAL: Awake, alert, and oriented x 3. Non-focal. Assessment and Plan - Assessment (1) Acute renal failure Code(s): N17.9 - Acute kidney failure, unspecified Status: Acute (2) Thrombocytopenia Code(s): D69.6 - Thrombocytopenia, unspecified Status: Acute (3) Fever Code(s): R50.9 - Fever, unspecified Status: Acute Qualifiers: Fever type: unspecified Qualified Code(s): R50.9 - Fever, unspecified (4) Renal transplant recipient Code(s): Z94.0 - Kidney transplant status Status: Acute (5) On total parenteral nutrition (TPN) Code(s): Z78.9 - Other specified health status Status: Acute (6) DM (diabetes mellitus) Code(s): E11.9 - Type 2 diabetes mellitus without complications Status: Acute (7) Abdominal pain Code(s): R10.9 - Unspecified abdominal pain Status: Acute - Plan Patient has acute renal failure with baseline creatinine around 0.9 currently at 1.7, Haptoglobin is high Platelet 84 Appears to have sepsis syndrome source could be the left abdominal area discussed with Dr. Patel Line sepsis with negative blood culture and no recurrent fevers is less likely Fluid bolus n.p.o. and KUB will be ordered by Dr. Patel Monitor tacrolimus level Follow BMP Avoid nephrotoxins
[2018-03-30] MEDS: Dextrose 5%/NaCl 0.9% Inj 1,000 ML IV.CONT SCH ×2 (16:15→19:00)
--- NOTE | 2018-03-30 16:16 | P.PNTS ---
Subjective Interval history: Patient with some malaise today. Her chronic abd pain is increaed from its usual 3/10 rang to about 6-7/10. No N/V. Ari po. Pain seems to mainly be in the left abd, with a small amount in the lower right also. Hurts more when she walks and when her knees are moved around. Had a formed stool earlier (which is a bit unusual for her). Physical Exam Vital signs: Vital Signs 03/29/18 19:52 03/29/18 20:30 03/29/18 22:03 Temperature 98.3 F Pulse Rate 67 70 Respiratory Rate 18 16 Blood Pressure 144/89 H Pulse Oximetry 99 03/29/18 23:25 03/29/18 23:26 03/30/18 00:10 Temperature 97.8 F Pulse Rate 62 59 L Respiratory Rate 18 18 Blood Pressure 156/93 H Pulse Oximetry 100 03/30/18 03:00 03/30/18 03:28 03/30/18 04:23 Temperature 97.7 F Pulse Rate 65 65 Respiratory Rate 18 18 Blood Pressure 167/91 H Pulse Oximetry 98 03/30/18 07:00 03/30/18 08:20 03/30/18 11:00 Temperature 97.4 F L Pulse Rate 70 71 64 Respiratory Rate 16 16 Blood Pressure 193/103 H 162/104 H Pulse Oximetry 100 100 Intake & Output 03/29/18 03/30/18 03/30/18 18:59 06:59 18:59 Intake Total 2940 / 2940 2990 / 2990 100 / 100 Output Total 2200 / 2200 3600 / 3600 Balance 740 / 740 -610 / -610 100 / 100 Weight 58.2 kg Intake: IV 1500 / 1500 2750 / 2750 100 / 100 NS Inj 1,000 ML @ 100 mls/hr IV 1000 / 1000 2000 / 2000 .CONT .Q10H [facility] Rx#:[id number] Intralipid 20% Inj 250 ML @ 31. 250 / 250 25 mls/hr IV.SIG Q24H [facility] Rx#: [id number] Zyvox 600 mg Premix 300 ML @ 300 / 300 300 / 300 300 mls/hr IV.SIG Q12H [facility] Rx#: [id number] Zosyn 4.5 GM Premix 4.5 gm In 200 / 200 200 / 200 100 / 100 100 ml @ 200 mls/hr IV.SIG Q6H [facility] Rx#:[id number] Oral 1440 / 1440 240 / 240 Output: Urine 2200 / 2200 3600 / 3600 Other: Date of Last Bowel Movement 03/29/18 03/29/18 # Bowel Movements 3 - Constitutional no acute distress - Routine HEENT Exam Head: Present: normocephalic, atraumatic Eye: Present: EOMI ENT: Present: mucous membranes dry - Routine Neck Exam Present: supple, full ROM - Routine Respiratory Exam Present: CTA bilaterally - Routine Cardiovascular Exam Present: RRR, S1, S2 - Routine Abdominal Exam Present: soft, normoactive bowel sounds, tenderness Comments: LLQ tenderness to palpation. No kayode rebound or guarding noted to exam. Her bowel sounds actually seem normal to exam , with no high pitched tinkling sounds or hypoactive sounds appreciated during my exam. - Routine Extremities Exam Present: pulses intact - Routine Skin Exam Present: intact - Routine Neurological Exam Present: alert, oriented X3 - Detailed Neurological Exam: Coma Scale Verbal Response: Oriented - Routine Psychiatric Exam Present: normal affect, normal thought process Results - Labs CBC & Chem 7: 03/30/18 10:10 03/30/18 10:10 Laboratory Results - last 24 hr 03/29/18 03/29/18 03/29/18 05:25 16:34 16:45 WBC RBC Hgb Hct MCV MCH MCHC RDW Plt Count MPV Prelim Diff (Auto) Neut % (Auto) Lymph % (Auto) [place] % (Auto) Eos % (Auto) Baso % (Auto) Neut # (Auto) Lymph # (Auto) Monroe # (Auto) Eos # (Auto) Baso # (Auto) WBC Differential Diff Scan Differential Comment Platelet Estimate Platelet Morphology Ovalocytes Acanthocytes (Spur) Smear Path Review Sodium Potassium Chloride Carbon Dioxide Anion Gap BUN Creatinine Estimated GFR POC Glucose 455 H* Random Glucose 453 H* Calcium Beta-Hydroxybutyric Acd Tacrolimus 03/29/18 03/30/18 03/30/18 20:39 01:26 07:23 WBC RBC Hgb Hct MCV MCH MCHC RDW Plt Count MPV Prelim Diff (Auto) Neut % (Auto) Lymph % (Auto) Monroe % (Auto) Eos % (Auto) Baso % (Auto) Neut # (Auto) Lymph # (Auto) Monroe # (Auto) Eos # (Auto) Baso # (Auto) WBC Differential Diff Scan Differential Comment Platelet Estimate Platelet Morphology Ovalocytes Acanthocytes (Spur) Smear Path Review Sodium Potassium Chloride Carbon Dioxide Anion Gap BUN Creatinine Estimated GFR POC Glucose 373 H 316 H Greater than 600 H* Random Glucose Calcium Beta-Hydroxybutyric Acd Tacrolimus 03/30/18 03/30/18 03/30/18 07:27 09:00 10:10 WBC RBC Hgb Hct MCV MCH MCHC RDW Plt Count MPV Prelim Diff (Auto) Neut % (Auto) Lymph % (Auto) Monroe % (Auto) Eos % (Auto) Baso % (Auto) Neut # (Auto) Lymph # (Auto) Monroe # (Auto) Eos # (Auto) Baso # (Auto) WBC Differential Diff Scan Differential Comment Platelet Estimate Platelet Morphology Ovalocytes Acanthocytes (Spur) Smear Path Review Sodium Potassium Chloride Carbon Dioxide Anion Gap BUN Creatinine Estimated GFR POC Glucose Greater than 600 H* Greater than 600 H* Random Glucose Calcium Beta-Hydroxybutyric Acd Tacrolimus 8.2 03/30/18 03/30/18 03/30/18 10:10 10:10 10:10 WBC 10.1 RBC 3.00 L Hgb 8.5 L Hct 29.7 L MCV 99.0 D MCH 28.5 MCHC 28.8 L RDW 17.5 H Plt Count 84 L MPV 10.2 Prelim Diff (Auto) Slide review pending Neut % (Auto) 67.2 Lymph % (Auto) 22.1 Monroe % (Auto) 9.2 H Eos % (Auto) 0.8 Baso % (Auto) 0.7 Neut # (Auto) 6.8 Lymph # (Auto) 2.2 Monroe # (Auto) 0.9 Eos # (Auto) 0.1 Baso # (Auto) 0.1 WBC Differential . Diff Scan Auto diff confirmed Differential Comment . Platelet Estimate Low L Platelet Morphology Enlarged H Ovalocytes 1+ H Acanthocytes (Spur) Occ H Smear Path Review Sodium 125 L Potassium 5.0 Chloride 92 L D Carbon Dioxide 20.0 L Anion Gap 13 BUN 18 Creatinine 1.78 H Estimated GFR 29 L POC Glucose Random Glucose 962 H* D Calcium 9.4 Beta-Hydroxybutyric Acd 0.11 Tacrolimus 03/30/18 11:17 WBC RBC Hgb Hct MCV MCH MCHC RDW Plt Count MPV Prelim Diff (Auto) Neut % (Auto) Lymph % (Auto) Monroe % (Auto) Eos % (Auto) Baso % (Auto) Neut # (Auto) Lymph # (Auto) Monroe # (Auto) Eos # (Auto) Baso # (Auto) WBC Differential Diff Scan Differential Comment Platelet Estimate Platelet Morphology Ovalocytes Acanthocytes (Spur) Smear Path Review Sodium Potassium Chloride Carbon Dioxide Anion Gap BUN Creatinine Estimated GFR POC Glucose 576 H* Random Glucose Calcium Beta-Hydroxybutyric Acd Tacrolimus Microbiology 03/27/18 20:00 Blood - Line Aerobic Blood Culture - Preliminary No growth in 3 days 03/27/18 20:00 Blood - Line Anaerobic Blood Culture - Preliminary No growth in 3 days 03/27/18 20:10 Blood - Line Aerobic Blood Culture - Preliminary No growth in 3 days 03/27/18 20:10 Blood - Line Anaerobic Blood Culture - Preliminary No growth in 3 days - Imaging Impressions Renal Ultrasound 03/29/18 00:00 CONCLUSION: 1. Very mild hydronephrosis of the transplant kidney. 2. 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 Assessment and Plan - Assessment (1) Fever Code(s): R50.9 - Fever, unspecified Status: Acute (2) Renal transplant recipient Code(s): Z94.0 - Kidney transplant status Status: Acute (3) DM (diabetes mellitus) Code(s): E11.9 - Type 2 diabetes mellitus without complications Status: Acute (4) Abdominal pain Code(s): R10.9 - Unspecified abdominal pain Status: Acute - Plan 57 yof with complex medical/surgical history s/p [place] in [place] in 06/2017. Admitted with left flank pain and FUO. No obvious source of infection noted at this time. Kidney function worsened overnight compared to baseline (0.6-1.2). Etiology is unclear. I suspect that she has some intra-abdominal process which could be part of the etiology (ie SBO with related distension and bacterial translocation) in addition she could have relative dehydration due to her hyperglycemia noted throughout the day. We are getting a KUB to see if she has worsened bowel distension. If warranted, we will place an NG tube. It is my understanding that she normally has 35 units of insulin in her TPN. This was reportedly not continued on admission, and could be contributing to her hyperglycemia, although other causes such as worsening underlying pathology, has to be also considered. Agree with justin tinoco and hydration. At this point , would monitor her creatinine, as we address these issues. If the abd pain persists, would get a CT of the abd/pelvis with po only contrast, to further assess the intestine. Her prograf level seems reasonable, so would not adjust any further at this time. Will keep lab draws at 1100. Etiology of the relative thrombocytopenia remains unclear. Microbiology results remain unrevealing at this time. Do not think she has line sepsis, based on her clinical presentation and current complaints. Breiefly discussed with Dr Ambrose, who did her recent abd surgery at [place], [place]. Await culture/ pending lab results. Will follow. (1) Fever Qualifiers: Fever type: unspecified Qualified Code(s): R50.9 - Fever, unspecified
--- NOTE | 2018-03-30 16:22 | XR ---
EXAM DATE: 03/30/2018 2:53 PM EDT AGE/SEX: 57 years / Female INDICATIONS: Abdominal pain in right lower quadrant and distention. CLINICAL DATA: This is the patient's initial encounter. Patient reports that signs and symptoms have been present for 1 day and indicates a pain score of 7/10. MEDICAL/SURGICAL HISTORY: . Diabetes mellitus type II. Gastroparesis. Renal failure, chronic. Cholecystectomy. Appendectomy. Renal transplant. Hysterectomy. Splenectomy. Pancreatectomy Colectom y Bilateral nephrectomy. [place] [facility] [place], 03/27/2018. . FINDINGS: Supine and upright views of the abdomen were performed. Gas-filled loops of nondilated small bowel ar e observed. No air-fluid levels. No air-fluid levels are seen. No abnormal masses, calcifications, or organomegaly is seen. The visualized lower lungs are clear. No evidence of free intraperitoneal gas. The osseous structures are unremarkable. An IVC filter noted. Multiple surgical clips scattered thro ughout the upper abdomen. CONCLUSION: No dilated loops of bowel observed. Electronically signed by: Heladio Salazar MD 03/30/2018 4:21 PM EDT
[2018-03-30] MEDS: Piperacil/Tazo 3.375 GM Premix 50 ML IV.SIG SCH ×2 (16:24→22:11)
[2018-03-30 23:15] LABS: Calcium 9.6 mg/dL (8.5-10.1); Carbon Dioxide 25.9 meq/L (21.0-32.0); Magnesium 1.4 mg/dL (1.5-2.5); Phosphorus 1.7 mg/dL (2.5-4.9); Potassium 4.4 meq/L (3.5-5.1)
[2018-03-31] MEDS: Morphine Inj 4 MG/ML Vial IV.PUSH PRN ×6 (00:20→20:46)
[2018-03-31] MEDS: Dextrose 5%/NaCl 0.9% Inj 1,000 ML IV.CONT SCH ×5 (00:54→20:04)
[2018-03-31] MEDS: Piperacil/Tazo 3.375 GM Premix 50 ML IV.SIG SCH ×2 (02:58→08:47)
[2018-03-31] MEDS: Chlorhexidine Gluconate 2% 1 Pack (2 Cloths) TOPICAL SCH (03:59)
[2018-03-31] MEDS: Sod Chloride 0.9% Inj 1,000 ML IV.CONT SCH ×6 (03:59→23:30)
[2018-03-31] MEDS ORDERED: Chlorhexidine Gluconate 2% 1 Pack (2 Cloths) TOPICAL PRN (04:00)
[2018-03-31 04:12] LABS: Calcium 9.3 mg/dL (8.5-10.1); Carbon Dioxide 27.4 meq/L (21.0-32.0); Magnesium 1.3 mg/dL (1.5-2.5); Phosphorus 1.4 mg/dL (2.5-4.9)
[2018-03-31] MEDS: Heparin Central Flush 100 UNIT/ML 5 ML Vial IV.FLUSH SCH (08:18)
[2018-03-31] MEDS: Enoxaparin Inj 40 MG/0.4 ML Syringe SQ SCH (08:47)
[2018-03-31] MEDS: Lipase/Protease/Amylase 24/76/120 DR Capsule PO SCH ×3 (09:00→20:04)
[2018-03-31] MEDS: predniSONE 10 MG Tablet PO SCH (09:00)
[2018-03-31] MEDS: Calcium Carbonate 500 MG Tablet PO SCH ×2 (09:00→20:45)
[2018-03-31] MEDS ORDERED: Insulin Detemir Inj 1,000 UNIT/10 ML Vial SQ SCH (09:00)
[2018-03-31] MEDS: Diphenoxylate/Atropine 2.5/0.025 MG Tablet PO SCH ×3 (09:01→20:04)
[2018-03-31] MEDS: Carvedilol 12.5 MG Tablet PO SCH ×2 (09:01→20:45)
--- NOTE | 2018-03-31 10:04 | P.PNIM ---
Subjective Interval history: in no acute distress. no fever but had some night sweats last night. has mild abdominal pain , and nausea, had some diarrhea which is improving. Physical Exam Vital signs: Vital Signs 03/30/18 11:00 03/30/18 16:00 03/30/18 19:00 Temperature 97.4 F L 97.4 F L Pulse Rate 64 56 L 54 L Respiratory Rate 16 16 Blood Pressure 162/104 H 192/93 H Pulse Oximetry 100 99 03/30/18 20:00 03/30/18 23:00 03/31/18 00:00 Temperature 97.7 F 96.8 F L Pulse Rate 60 58 L 62 Respiratory Rate 23 13 Blood Pressure 162/80 H 158/88 H Pulse Oximetry 99 98 03/31/18 03:00 03/31/18 04:00 Temperature 98.5 F Pulse Rate 62 62 Respiratory Rate 13 Blood Pressure 124/67 Pulse Oximetry 97 Intake & Output 03/30/18 03/31/18 03/31/18 18:59 06:59 18:59 Intake Total 900 / 900 6709.3937 / 6709.3937 Output Total 600 / 600 Balance 300 / 300 6709.3937 / 6709.3937 Weight 67.5 kg Intake: IV 500 / 500 6709.3937 / 6709.3937 D5W/Normal Saline Inj 1,000 ML 2000 / 2000 @ 200 mls/hr IV.CONT .Q5H [facility] Rx#:[id number] NS Inj 1,000 ML @ 250 mls/hr IV 1000 / 1000 .CONT .Q4H [facility] Rx#:[id number] Intralipid 20% Inj 250 ML @ 31. 250 / 250 25 mls/hr IV.SIG Q24H [facility] Rx#: [id number] Zyvox 600 mg Premix 300 ML @ 300 / 300 300 / 300 300 mls/hr IV.SIG Q12H [facility] Rx#: [id number] Zosyn 3.375 GM Premix 50 ML @ 100 / 100 100 / 100 100 mls/hr IV.SIG Q6H [facility] Rx#: [id number] Zosyn 4.5 GM Premix 4.5 gm In 100 / 100 100 ml @ 200 mls/hr IV.SIG Q6H [facility] Rx#:[id number] Sodium Chloride 23.4% Inj 11 2058.3937 / 2058.3937 MEQ Sodium Acetate Inj 59 MEQ KCl Inj 40 MEQ Magnesium Chloride Inj 10 MEQ Calcium Chloride Inj 9 MEQ MVI-12 Inj 10 ML Folvite Inj 1 MG In TPN Fluid 2 Liter 2,000 ML @ 65 mls /hr IV.SIG Q24H [facility] Rx#: [id number] Oral 400 / 400 Output: Urine 600 / 600 Other: # Voids 5 - Constitutional no acute distress - Routine Respiratory Exam Present: CTA bilaterally - Routine Cardiovascular Exam Present: RRR - Routine Abdominal Exam Present: soft, tenderness (periumbilical tenderness.) - Routine Extremities Exam Comments: no pedal edema. - Routine Neurological Exam Present: alert, oriented X3 Results - Labs CBC & Chem 7: 03/30/18 10:10 03/31/18 03:40 Laboratory Results - last 24 hr 03/30/18 03/30/18 03/30/18 10:10 10:10 10:10 WBC 10.1 RBC 3.00 L Hgb 8.5 L Hct 29.7 L MCV 99.0 D MCH 28.5 MCHC 28.8 L RDW 17.5 H Plt Count 84 L MPV 10.2 Prelim Diff (Auto) Slide review pending Neut % (Auto) 67.2 Lymph % (Auto) 22.1 Kerr % (Auto) 9.2 H Eos % (Auto) 0.8 Baso % (Auto) 0.7 Neut # (Auto) 6.8 Lymph # (Auto) 2.2 Kerr # (Auto) 0.9 Eos # (Auto) 0.1 Baso # (Auto) 0.1 WBC Differential . Diff Scan Auto diff confirmed Differential Comment . Platelet Estimate Low L Platelet Morphology Enlarged H Ovalocytes 1+ H Acanthocytes (Spur) Occ H Sodium 125 L Potassium 5.0 Chloride 92 L D Carbon Dioxide 20.0 L Anion Gap 13 BUN 18 Creatinine 1.78 H Estimated GFR 29 L POC Glucose Random Glucose 962 H* D Calcium 9.4 Phosphorus Magnesium Beta-Hydroxybutyric Acd Tacrolimus 8.2 03/30/18 03/30/18 03/30/18 10:10 10:10 11:17 WBC RBC Hgb Hct MCV MCH MCHC RDW Plt Count MPV Prelim Diff (Auto) Neut % (Auto) Lymph % (Auto) Kerr % (Auto) Eos % (Auto) Baso % (Auto) Neut # (Auto) Lymph # (Auto) Kerr # (Auto) Eos # (Auto) Baso # (Auto) WBC Differential Diff Scan Differential Comment Platelet Estimate Platelet Morphology Ovalocytes Acanthocytes (Spur) Sodium Cancelled Potassium Cancelled Chloride Cancelled Carbon Dioxide Cancelled Anion Gap Cancelled BUN Cancelled Creatinine Cancelled Estimated GFR Cancelled POC Glucose 576 H* Random Glucose Cancelled Calcium Cancelled Phosphorus 1.6 L Magnesium Beta-Hydroxybutyric Acd 0.11 Cancelled Tacrolimus 03/30/18 03/30/18 03/30/18 16:07 17:09 18:17 WBC RBC Hgb Hct MCV MCH MCHC RDW Plt Count MPV Prelim Diff (Auto) Neut % (Auto) Lymph % (Auto) Kerr % (Auto) Eos % (Auto) Baso % (Auto) Neut # (Auto) Lymph # (Auto) Kerr # (Auto) Eos # (Auto) Baso # (Auto) WBC Differential Diff Scan Differential Comment Platelet Estimate Platelet Morphology Ovalocytes Acanthocytes (Spur) Sodium Potassium Chloride Carbon Dioxide Anion Gap BUN Creatinine Estimated GFR POC Glucose 426 H 301 H 238 H Random Glucose Calcium Phosphorus Magnesium Beta-Hydroxybutyric Acd Tacrolimus 03/30/18 03/30/18 03/30/18 18:44 20:09 20:45 WBC RBC Hgb Hct MCV MCH MCHC RDW Plt Count MPV Prelim Diff (Auto) Neut % (Auto) Lymph % (Auto) Kerr % (Auto) Eos % (Auto) Baso % (Auto) Neut # (Auto) Lymph # (Auto) Kerr # (Auto) Eos # (Auto) Baso # (Auto) WBC Differential Diff Scan Differential Comment Platelet Estimate Platelet Morphology Ovalocytes Acanthocytes (Spur) Sodium Potassium Chloride Carbon Dioxide Anion Gap BUN Creatinine Estimated GFR POC Glucose 185 H 119 H 105 Random Glucose Calcium Phosphorus Magnesium Beta-Hydroxybutyric Acd Tacrolimus 03/30/18 03/30/18 03/30/18 21:18 22:00 22:40 WBC RBC Hgb Hct MCV MCH MCHC RDW Plt Count MPV Prelim Diff (Auto) Neut % (Auto) Lymph % (Auto) Kerr % (Auto) Eos % (Auto) Baso % (Auto) Neut # (Auto) Lymph # (Auto) Kerr # (Auto) Eos # (Auto) Baso # (Auto) WBC Differential Diff Scan Differential Comment Platelet Estimate Platelet Morphology Ovalocytes Acanthocytes (Spur) Sodium 137 D Potassium 4.4 Chloride 104 D Carbon Dioxide 25.9 Anion Gap 7 BUN 20 H Creatinine 1.07 H Estimated GFR 53 L POC Glucose 121 H 175 H Random Glucose 177 H D Calcium 9.6 Phosphorus 1.7 L Magnesium 1.4 L Beta-Hydroxybutyric Acd Tacrolimus 03/30/18 03/30/18 03/31/18 23:05 23:57 01:06 WBC RBC Hgb Hct MCV MCH MCHC RDW Plt Count MPV Prelim Diff (Auto) Neut % (Auto) Lymph % (Auto) Kerr % (Auto) Eos % (Auto) Baso % (Auto) Neut # (Auto) Lymph # (Auto) Kerr # (Auto) Eos # (Auto) Baso # (Auto) WBC Differential Diff Scan Differential Comment Platelet Estimate Platelet Morphology Ovalocytes Acanthocytes (Spur) Sodium Potassium Chloride Carbon Dioxide Anion Gap BUN Creatinine Estimated GFR POC Glucose 201 H 223 H 253 H Random Glucose Calcium Phosphorus Magnesium Beta-Hydroxybutyric Acd Tacrolimus 03/31/18 03/31/18 03/31/18 02:03 03:02 03:40 WBC RBC Hgb Hct MCV MCH MCHC RDW Plt Count MPV Prelim Diff (Auto) Neut % (Auto) Lymph % (Auto) Kerr % (Auto) Eos % (Auto) Baso % (Auto) Neut # (Auto) Lymph # (Auto) Kerr # (Auto) Eos # (Auto) Baso # (Auto) WBC Differential Diff Scan Differential Comment Platelet Estimate Platelet Morphology Ovalocytes Acanthocytes (Spur) Sodium 140 Potassium 4.0 Chloride 106 Carbon Dioxide 27.4 Anion Gap 7 BUN 19 H Creatinine 0.99 Estimated GFR 58 L POC Glucose 204 H 156 H Random Glucose 103 Calcium 9.3 Phosphorus 1.4 L Magnesium 1.3 L Beta-Hydroxybutyric Acd Tacrolimus 03/31/18 03/31/18 03/31/18 04:03 04:28 05:23 WBC RBC Hgb Hct MCV MCH MCHC RDW Plt Count MPV Prelim Diff (Auto) Neut % (Auto) Lymph % (Auto) Kerr % (Auto) Eos % (Auto) Baso % (Auto) Neut # (Auto) Lymph # (Auto) Kerr # (Auto) Eos # (Auto) Baso # (Auto) WBC Differential Diff Scan Differential Comment Platelet Estimate Platelet Morphology Ovalocytes Acanthocytes (Spur) Sodium Potassium Chloride Carbon Dioxide Anion Gap BUN Creatinine Estimated GFR POC Glucose 103 81 129 H Random Glucose Calcium Phosphorus Magnesium Beta-Hydroxybutyric Acd Tacrolimus 03/31/18 03/31/18 03/31/18 06:29 07:37 09:24 WBC RBC Hgb Hct MCV MCH MCHC RDW Plt Count MPV Prelim Diff (Auto) Neut % (Auto) Lymph % (Auto) Kerr % (Auto) Eos % (Auto) Baso % (Auto) Neut # (Auto) Lymph # (Auto) Kerr # (Auto) Eos # (Auto) Baso # (Auto) WBC Differential Diff Scan Differential Comment Platelet Estimate Platelet Morphology Ovalocytes Acanthocytes (Spur) Sodium Potassium Chloride Carbon Dioxide Anion Gap BUN Creatinine Estimated GFR POC Glucose 242 H 234 H 181 H Random Glucose Calcium Phosphorus Magnesium Beta-Hydroxybutyric Acd Tacrolimus Microbiology 03/27/18 20:00 Blood - Line Aerobic Blood Culture - Preliminary No growth in 3 days 03/27/18 20:00 Blood - Line Anaerobic Blood Culture - Preliminary No growth in 3 days 03/27/18 20:10 Blood - Line Aerobic Blood Culture - Preliminary No growth in 3 days 03/27/18 20:10 Blood - Line Anaerobic Blood Culture - Preliminary No growth in 3 days - Imaging Impressions Abdomen X-Ray 03/30/18 14:53 CONCLUSION: No dilated loops of bowel observed. Assessment and Plan - Assessment (1) SIRS (systemic inflammatory response syndrome) Code(s): R65.10 - Systemic inflammatory response syndrome (SIRS) of non- infectious origin without acute organ dysfunction Status: Acute (2) H/O kidney transplant Code(s): Z94.0 - Kidney transplant status Status: Acute (3) Abdominal pain Code(s): R10.9 - Unspecified abdominal pain Status: Acute (4) On total parenteral nutrition (TPN) Code(s): Z78.9 - Other specified health status Status: Acute (5) Renal insufficiency Code(s): N28.9 - Disorder of kidney and ureter, unspecified Status: Acute (6) DM (diabetes mellitus) Code(s): E11.9 - Type 2 diabetes mellitus without complications Status: Acute - Plan Fever, SIRS Patient presented with leukocytosis and fever, source is unclear Chest x-ray was within normal limits, urinalysis showed no infection Patient is high risk due to immunocompromise state secondary to medications for renal transplant as well as shortened bowel Continue empiric coverage with Zyvox and Zosyn Blood cultures thus far negative ID following. H/o renal transplant Transplanted in June 2017 at [facility], Dr. Louis Continue Prograf, adjusted by nephrology Appreciate transplant surgery consult Thrombocytopenia Patient has a history of thrombophilia with numbers up to 1.2 million, since admission she has trended downwards Hold Anagrelide until numbers return to normal, consider every other day dosing after that -labs pending. -repeat CBC today and consider hematology consult. Abdominal pain Patient has a history of large areas of bowel resection, multiple surgeries, pancreatectomy and splenectomy She allegedly has 260 cm of small bowel with no colon She has a history of gastroparesis related to adhesions and stenoses in the bowel, she takes TPN for this Dietitian made TPN recs. Will need adjustment for hyperglycemia. Nausea Dyspepsia likely related to antibiotics combined with short gut syndrome Phenergan added to Zofran ODT. Type 2 diabetes- now blood sugar has much improved. Patient's currently hyperglycemic related to infection and initially poorly controlled. started on insulin drip; will stop the drip today ; will add regular insulin to TPN and continue to monitor and adjust the dosage accordingly. DVT Prophylaxis Lovenox
[2018-03-31 13:03] LABS: Calcium 9.2 mg/dL (8.5-10.1); Carbon Dioxide 25.5 meq/L (21.0-32.0); Magnesium 1.4 mg/dL (1.5-2.5); Potassium 4.8 meq/L (3.5-5.1)
[2018-03-31 13:10] LABS: Baso # (Auto) 0.1 th/mm3 (0.0-0.2); Baso % (Auto) 0.7 % (0.0-2.0); Eos # (Auto) 0.2 th/mm3 (0.0-0.4); Eos % (Auto) 1.6 % (0.0-4.0); Hematocrit 26.6 % (35.0-46.0); Hemoglobin 8.6 gm/dL (11.6-15.3); Lymph # (Auto) 2.4 th/mm3 (1.0-4.8); Lymph % (Auto) 23.7 % (9.0-44.0); Mean Corpuscular HGB Conc 32.4 % (32.0-36.0); Mean Corpuscular Hemoglobin 28.9 pg (27.0-34.0); Mean Corpuscular Volume 89.3 fL (80.0-100.0); Mean Platelet Volume 11.7 fL (7.0-11.0); Mono % (Auto) 9.9 % (0.0-8.0); Neut # (Auto) 6.6 th/mm3 (1.8-7.7); Neut % (Auto) 64.1 % (16.0-70.0); Platelet Count 204 th/mm3 (150-450); Red Blood Count 2.97 mil/mm3 (4.00-5.30); Red Cell Distribution Width 16.4 % (11.6-17.2); White Blood Count 10.3 th/mm3 (4.0-11.0)
[2018-03-31 13:44] LABS: Acanthocytes 1+; Howell-Jolly Bodies Present; Ovalocytes 1+; Platelet Estimate Normal (Normal)
--- NOTE | 2018-03-31 13:58 | P.PNID ---
Subjective Remarks: 57 year old female with very complicated surgical Hx, S/P renal transplant admitted with fever Notes reviewed Has been afebrile No Infewction identified Gi symptoms same; chronic nausea, abdominal pain, and diarrhea Antibiotics: Zosyn Zyvox Lines: PIV Past Medical History: Reviewed Allergies/Adverse Reactions: Allergies metronidazole [From Flagyl] Allergy (Mild, Verified 03/27/18 18:27) Hives oxycodone Allergy (Mild, Verified 03/27/18 18:27) Redness of Skin oxytetracycline [From Terramycin] Allergy (Mild, Verified 03/27/18 18:27) Hives Objective Vital Signs 03/30/18 16:00 03/30/18 19:00 03/30/18 20:00 Temperature 97.4 F L 97.7 F Pulse Rate 56 L 54 L 60 Respiratory Rate 16 23 Blood Pressure 192/93 H 162/80 H Pulse Oximetry 99 99 03/30/18 23:00 03/31/18 00:00 03/31/18 03:00 Temperature 96.8 F L Pulse Rate 58 L 62 62 Respiratory Rate 13 Blood Pressure 158/88 H Pulse Oximetry 98 03/31/18 04:00 Temperature 98.5 F Pulse Rate 62 Respiratory Rate 13 Blood Pressure 124/67 Pulse Oximetry 97 Intake & Output 03/30/18 03/31/18 03/31/18 18:59 06:59 18:59 Intake Total 900 / 900 6709.3937 / 6709.3937 Output Total 600 / 600 Balance 300 / 300 6709.3937 / 6709.3937 Weight 67.5 kg Intake: IV 500 / 500 6709.3937 / 6709.3937 D5W/Normal Saline Inj 1,000 ML 2000 / 2000 @ 200 mls/hr IV.CONT .Q5H [facility] Rx#:[id number] NS Inj 1,000 ML @ 250 mls/hr IV 1000 / 1000 .CONT .Q4H [facility] Rx#:[id number] Intralipid 20% Inj 250 ML @ 31. 250 / 250 25 mls/hr IV.SIG Q24H [facility] Rx#: [id number] Zyvox 600 mg Premix 300 ML @ 300 / 300 300 / 300 300 mls/hr IV.SIG Q12H [facility] Rx#: [id number] Zosyn 3.375 GM Premix 50 ML @ 100 / 100 100 / 100 100 mls/hr IV.SIG Q6H [facility] Rx#: [id number] Zosyn 4.5 GM Premix 4.5 gm In 100 / 100 100 ml @ 200 mls/hr IV.SIG Q6H [facility] Rx#:[id number] Sodium Chloride 23.4% Inj 11 9.3937 / 2059.3937 MEQ Sodium Acetate Inj 59 MEQ KCl Inj 40 MEQ Magnesium Chloride Inj 10 MEQ Calcium Chloride Inj 9 MEQ MVI-12 Inj 10 ML Folvite Inj 1 MG In TPN Fluid 2 Liter 2,000 ML @ 65 mls /hr IV.SIG Q24H [facility] Rx#: [id number] Oral 400 / 400 Output: Urine 600 / 600 Other: # Voids 5 03/27/18 20:00 Blood - Line Aerobic Blood Culture - Preliminary No growth in 4 days 03/27/18 20:00 Blood - Line Anaerobic Blood Culture - Preliminary No growth in 4 days 03/27/18 20:10 Blood - Line Aerobic Blood Culture - Preliminary No growth in 4 days 03/27/18 20:10 Blood - Line Anaerobic Blood Culture - Preliminary No growth in 4 days Lab - Hematology Results 03/29/18 03/29/18 03/29/18 05:25 05:25 05:25 WBC RBC Hgb Hct MCV MCH MCHC RDW Plt Count MPV Prelim Diff (Auto) Neut % (Auto) Lymph % (Auto) Jack % (Auto) Eos % (Auto) Baso % (Auto) Neut # (Auto) Lymph # (Auto) Jack # (Auto) Eos # (Auto) Baso # (Auto) WBC Differential Diff Scan Differential Comment Platelet Estimate Platelet Morphology Ovalocytes [place] Bodies Acanthocytes (Spur) Smear Path Review Retic Count 1.3 Absolute Retic 43.5 Haptoglobin 433 H 03/30/18 03/31/18 10:10 12:30 WBC 10.1 10.3 RBC 3.00 L 2.97 L Hgb 8.5 L 8.6 L Hct 29.7 L 26.6 L MCV 99.0 D 89.3 D MCH 28.5 28.9 MCHC 28.8 L 32.4 RDW 17.5 H 16.4 Plt Count 84 L 204 D MPV 10.2 11.7 H Prelim Diff (Auto) Slide review pending Slide review pending Neut % (Auto) 67.2 64.1 Lymph % (Auto) 22.1 23.7 Jack % (Auto) 9.2 H 9.9 H Eos % (Auto) 0.8 1.6 Baso % (Auto) 0.7 0.7 Neut # (Auto) 6.8 6.6 Lymph # (Auto) 2.2 2.4 Jack # (Auto) 0.9 1.0 H Eos # (Auto) 0.1 0.2 Baso # (Auto) 0.1 0.1 WBC Differential . . Diff Scan Auto diff confirmed Auto diff confirmed Differential Comment . . Platelet Estimate Low L Normal Platelet Morphology Enlarged H Giant H Ovalocytes 1+ H 1+ H [place] Bodies Present H Acanthocytes (Spur) Occ H 1+ H Smear Path Review Retic Count Absolute Retic Haptoglobin Lab - Chemistry Results 03/29/18 03/29/18 03/29/18 05:25 16:34 16:45 Sodium Potassium Chloride Carbon Dioxide Anion Gap BUN Creatinine Estimated GFR POC Glucose 455 H* Random Glucose 453 H* Calcium Phosphorus Magnesium Lactate Dehydrogenase 130 Beta-Hydroxybutyric Acd 03/29/18 03/30/18 03/30/18 20:39 01:26 07:23 Sodium Potassium Chloride Carbon Dioxide Anion Gap BUN Creatinine Estimated GFR POC Glucose 373 H 316 H Greater than 600 H* Random Glucose Calcium Phosphorus Magnesium Lactate Dehydrogenase Beta-Hydroxybutyric Acd 03/30/18 03/30/18 03/30/18 07:27 09:00 10:10 Sodium 125 L Potassium 5.0 Chloride 92 L D Carbon Dioxide 20.0 L Anion Gap 13 BUN 18 Creatinine 1.78 H Estimated GFR 29 L POC Glucose Greater than 600 H* Greater than 600 H* Random Glucose 962 H* D Calcium 9.4 Phosphorus Magnesium Lactate Dehydrogenase Beta-Hydroxybutyric Acd 03/30/18 03/30/18 03/30/18 10:10 10:10 11:17 Sodium Cancelled Potassium Cancelled Chloride Cancelled Carbon Dioxide Cancelled Anion Gap Cancelled BUN Cancelled Creatinine Cancelled Estimated GFR Cancelled POC Glucose 576 H* Random Glucose Cancelled Calcium Cancelled Phosphorus 1.6 L Magnesium Lactate Dehydrogenase Beta-Hydroxybutyric Acd 0.11 Cancelled 03/30/18 03/30/18 03/30/18 16:07 17:09 18:17 Sodium Potassium Chloride Carbon Dioxide Anion Gap BUN Creatinine Estimated GFR POC Glucose 426 H 301 H 238 H Random Glucose Calcium Phosphorus Magnesium Lactate Dehydrogenase Beta-Hydroxybutyric Acd 03/30/18 03/30/18 03/30/18 18:44 20:09 20:45 Sodium Potassium Chloride Carbon Dioxide Anion Gap BUN Creatinine Estimated GFR POC Glucose 185 H 119 H 105 Random Glucose Calcium Phosphorus Magnesium Lactate Dehydrogenase Beta-Hydroxybutyric Acd 03/30/18 03/30/18 03/30/18 21:18 22:00 22:40 Sodium 137 D Potassium 4.4 Chloride 104 D Carbon Dioxide 25.9 Anion Gap 7 BUN 20 H Creatinine 1.07 H Estimated GFR 53 L POC Glucose 121 H 175 H Random Glucose 177 H D Calcium 9.6 Phosphorus 1.7 L Magnesium 1.4 L Lactate Dehydrogenase Beta-Hydroxybutyric Acd 03/30/18 03/30/18 03/31/18 23:05 23:57 01:06 Sodium Potassium Chloride Carbon Dioxide Anion Gap BUN Creatinine Estimated GFR POC Glucose 201 H 223 H 253 H Random Glucose Calcium Phosphorus Magnesium Lactate Dehydrogenase Beta-Hydroxybutyric Acd 03/31/18 03/31/18 03/31/18 02:03 03:02 03:40 Sodium 140 Potassium 4.0 Chloride 106 Carbon Dioxide 27.4 Anion Gap 7 BUN 19 H Creatinine 0.99 Estimated GFR 58 L POC Glucose 204 H 156 H Random Glucose 103 Calcium 9.3 Phosphorus 1.4 L Magnesium 1.3 L Lactate Dehydrogenase Beta-Hydroxybutyric Acd 03/31/18 03/31/18 03/31/18 04:03 04:28 05:23 Sodium Potassium Chloride Carbon Dioxide Anion Gap BUN Creatinine Estimated GFR POC Glucose 103 81 129 H Random Glucose Calcium Phosphorus Magnesium Lactate Dehydrogenase Beta-Hydroxybutyric Acd 03/31/18 03/31/18 03/31/18 06:29 07:37 09:24 Sodium Potassium Chloride Carbon Dioxide Anion Gap BUN Creatinine Estimated GFR POC Glucose 242 H 234 H 181 H Random Glucose Calcium Phosphorus Magnesium Lactate Dehydrogenase Beta-Hydroxybutyric Acd 03/31/18 03/31/18 03/31/18 10:32 11:19 12:30 Sodium 140 Potassium 4.8 D Chloride 106 Carbon Dioxide 25.5 Anion Gap 9 BUN 19 H Creatinine 1.03 H Estimated GFR 55 L POC Glucose 164 H 150 H Random Glucose 161 H Calcium 9.2 Phosphorus Magnesium 1.4 L Lactate Dehydrogenase Beta-Hydroxybutyric Acd 03/31/18 12:30 Sodium Potassium Chloride Carbon Dioxide Anion Gap BUN Creatinine Estimated GFR POC Glucose Random Glucose Calcium Phosphorus 1.8 L Magnesium Lactate Dehydrogenase Beta-Hydroxybutyric Acd Imaging: ITS Impressions Abdomen/Pelvis CT 03/27/18 00:00 CONCLUSION: 1. Status post cholecystectomy with prominent intrahepatic pneumobilia. Numerous subcentimeter hypodensities lesions in both lobes of the liver, most prominently in the right lobe. Although nonspecific, cannot exclude hepatic abscesses in the appropriate clinical setting. Comparisons with prior CT examinations would be beneficial to determine chronicity. 2. 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 Mild hydronephrosis of the transplant kidney without perirenal fluid collections or radiopaque calculi. 3. Status post near total colectomy with multiple suture lines in the left upper quadrant. Several loops of small bowel in the left upper quadrant are marginally dilated without definitive evidence for bowel obstruction. 4. Additional ancillary findings, as above. Chest X-Ray 03/27/18 19:28 CONCLUSION: No acute cardiopulmonary disease. There is no evidence of pneumonia. Renal Ultrasound 03/29/18 00:00 CONCLUSION: 1. Very mild hydronephrosis of the transplant kidney. 2. 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 Abdomen X-Ray 03/30/18 14:53 CONCLUSION: No dilated loops of bowel observed. Physical Exam: GENERAL: Patient is a well-nourished, well-developed female, awake and alert, not in respiratory distress. SKIN: Warm and dry. No generalized rash, no ecchymoses and no evidence of embolic lesions. HEAD: Atraumatic. Normocephalic. No temporal wasting, or tenderness. EYES: [place] conjunctiva. No petechia or hemorrhage. Pupils equal, round and reactive to light. Extraocular movements full and intact. No scleral icterus. No injection or drainage. EARS, NOSE AND THROAT: Nose without bleeding or purulent nasal discharge. No sinus tenderness. Mucous membranes pink and moist. No oral lesions noted. No exudate. No oral thrush. NECK: Trachea midline. Supple and not tender, no meningeal signs CARDIOVASCULAR: Regular rate and rhythm. No murmurs, rubs or gallops heard RESPIRATORY: Clear to auscultation. Breath sounds equal bilaterally. No rales , wheezing or rhonchi ABDOMEN: Soft, mildly tender, nondistended. healed midline incisions Bowel sounds present and normoactive. No guarding. No rebound. No organomegaly. EXTREMITIES: No clubbing, cyanosis, or edema. No joint effusion, has good ROM. No calf tenderness. Well perfused and warm. NEUROLOGICAL: Awake and alert. Cranial nerves grossly intact. Motor grossly within normal limits. PSYCHIATRIC: Normal affect, calm and cooperative. 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
--- NOTE | 2018-03-31 15:33 | P.PNNP ---
Subjective Interval history: Feels better Physical Exam Vital signs: Vital Signs 03/30/18 16:00 03/30/18 19:00 03/30/18 20:00 Temperature 97.4 F L 97.7 F Pulse Rate 56 L 54 L 60 Respiratory Rate 16 23 Blood Pressure 192/93 H 162/80 H Pulse Oximetry 99 99 03/30/18 23:00 03/31/18 00:00 03/31/18 03:00 Temperature 96.8 F L Pulse Rate 58 L 62 62 Respiratory Rate 13 Blood Pressure 158/88 H Pulse Oximetry 98 03/31/18 04:00 Temperature 98.5 F Pulse Rate 62 Respiratory Rate 13 Blood Pressure 124/67 Pulse Oximetry 97 Intake & Output 03/30/18 03/31/18 03/31/18 18:59 06:59 18:59 Intake Total 900 / 900 6709.3937 / 6709.3937 Output Total 600 / 600 Balance 300 / 300 6709.3937 / 6709.3937 Weight 67.5 kg Intake: IV 500 / 500 6709.3937 / 6709.3937 D5W/Normal Saline Inj 1,000 ML 2000 / 2000 @ 200 mls/hr IV.CONT .Q5H [facility] Rx#:[id number] NS Inj 1,000 ML @ 250 mls/hr IV 1000 / 1000 .CONT .Q4H [facility] Rx#:[id number] Intralipid 20% Inj 250 ML @ 31. 250 / 250 25 mls/hr IV.SIG Q24H [facility] Rx#: [id number] Zyvox 600 mg Premix 300 ML @ 300 / 300 300 / 300 300 mls/hr IV.SIG Q12H [facility] Rx#: [id number] Zosyn 3.375 GM Premix 50 ML @ 100 / 100 100 / 100 100 mls/hr IV.SIG Q6H [facility] Rx#: [id number] Zosyn 4.5 GM Premix 4.5 gm In 100 / 100 100 ml @ 200 mls/hr IV.SIG Q6H [facility] Rx#:[id number] Sodium Chloride 23.4% Inj 11 2058.3937 / 2059.3937 MEQ Sodium Acetate Inj 59 MEQ KCl Inj 40 MEQ Magnesium Chloride Inj 10 MEQ Calcium Chloride Inj 9 MEQ MVI-12 Inj 10 ML Folvite Inj 1 MG In TPN Fluid 2 Liter 2,000 ML @ 65 mls /hr IV.SIG Q24H [facility] Rx#: [id number] Oral 400 / 400 Output: Urine 600 / 600 Other: # Voids 5 Narrative: GENERAL: Well-nourished, well-developed patient. SKIN: Warm and dry. HEAD: Normocephalic. EYES: No scleral icterus. No injection or drainage. NECK: Supple, trachea midline. No JVD or lymphadenopathy. CARDIOVASCULAR: Regular rate and rhythm without murmurs, gallops, or rubs. Ward catheter on the right internal jugular. RESPIRATORY: Breath sounds equal bilaterally. No accessory muscle use. GASTROINTESTINAL: Abdomen soft, mildly tender, nondistended. Multiple surgical scar there is a right lower abdominal scar, all are healed. EXTREMITIES: No edema NEUROLOGICAL: Awake, alert, and oriented x 3. Non-focal. Assessment and Plan - Assessment (1) Acute renal failure Code(s): N17.9 - Acute kidney failure, unspecified Status: Acute (2) Thrombocytopenia Code(s): D69.6 - Thrombocytopenia, unspecified Status: Acute (3) Fever Code(s): R50.9 - Fever, unspecified Status: Acute Qualifiers: Fever type: unspecified Qualified Code(s): R50.9 - Fever, unspecified (4) Renal transplant recipient Code(s): Z94.0 - Kidney transplant status Status: Acute (5) On total parenteral nutrition (TPN) Code(s): Z78.9 - Other specified health status Status: Acute (6) DM (diabetes mellitus) Code(s): E11.9 - Type 2 diabetes mellitus without complications Status: Acute (7) Abdominal pain Code(s): R10.9 - Unspecified abdominal pain Status: Acute - Plan Patient has acute renal failure with baseline creatinine around 0.9 currently at 1.03, Platelet [address] Patel Blood glucose improved Monitor tacrolimus level Follow BMP Avoid nephrotoxins
--- NOTE | 2018-03-31 15:50 | P.PNTS ---
Subjective Interval history: No new c/o. Abd pain improved. Physical Exam Vital signs: Vital Signs 03/30/18 16:00 03/30/18 19:00 03/30/18 20:00 Temperature 97.4 F L 97.7 F Pulse Rate 56 L 54 L 60 Respiratory Rate 16 23 Blood Pressure 192/93 H 162/80 H Pulse Oximetry 99 99 03/30/18 23:00 03/31/18 00:00 03/31/18 03:00 Temperature 96.8 F L Pulse Rate 58 L 62 62 Respiratory Rate 13 Blood Pressure 158/88 H Pulse Oximetry 98 03/31/18 04:00 Temperature 98.5 F Pulse Rate 62 Respiratory Rate 13 Blood Pressure 124/67 Pulse Oximetry 97 Intake & Output 03/30/18 03/31/18 03/31/18 18:59 06:59 18:59 Intake Total 900 / 900 6709.3937 / 6709.3937 Output Total 600 / 600 Balance 300 / 300 6709.3937 / 6709.3937 Weight 67.5 kg Intake: IV 500 / 500 6709.3937 / 6709.3937 D5W/Normal Saline Inj 1,000 ML 2000 / 2000 @ 200 mls/hr IV.CONT .Q5H [facility] Rx#:[id number] NS Inj 1,000 ML @ 250 mls/hr IV 1000 / 1000 .CONT .Q4H RONALD Rx#:[id number] Intralipid 20% Inj 250 ML @ 31. 250 / 250 25 mls/hr IV.SIG Q24H [facility] Rx#: [id number] Zyvox 600 mg Premix 300 ML @ 300 / 300 300 / 300 300 mls/hr IV.SIG Q12H [facility] Rx#: [id number] Zosyn 3.375 GM Premix 50 ML @ 100 / 100 100 / 100 100 mls/hr IV.SIG Q6H [facility] Rx#: [id number] Zosyn 4.5 GM Premix 4.5 gm In 100 / 100 100 ml @ 200 mls/hr IV.SIG Q6H [facility] Rx#:[id number] Sodium Chloride 23.4% Inj 11 9.3937 / 2059.3937 MEQ Sodium Acetate Inj 59 MEQ KCl Inj 40 MEQ Magnesium Chloride Inj 10 MEQ Calcium Chloride Inj 9 MEQ MVI-12 Inj 10 ML Folvite Inj 1 MG In TPN Fluid 2 Liter 2,000 ML @ 65 mls /hr IV.SIG Q24H RONALD Rx#: [id number] Oral 400 / 400 Output: Urine 600 / 600 Other: # Voids 5 - Constitutional no acute distress - Routine HEENT Exam Head: Present: normocephalic Eye: Present: EOMI ENT: Present: mucous membranes moist - Routine Neck Exam Present: supple - Routine Respiratory Exam Present: CTA bilaterally - Routine Cardiovascular Exam Present: RRR, S1, S2 - Routine Abdominal Exam Present: soft, normoactive bowel sounds, tenderness Comments: Minimally tender in LLQ. improved form prior day. No rebound or guarding - Routine Extremities Exam Present: pulses intact Comments: calves soft nontender bilaterally. No palpable cords - Routine Skin Exam Present: intact - Routine Neurological Exam Present: alert, oriented X3 - Detailed Neurological Exam: Coma Scale Verbal Response: Oriented - Routine Psychiatric Exam Present: normal affect, normal thought process Results - Labs CBC & Chem 7: 03/31/18 12:30 03/31/18 12:30 Laboratory Results - last 24 hr 03/30/18 03/30/18 03/30/18 10:10 16:07 17:09 WBC RBC Hgb Hct MCV MCH MCHC RDW Plt Count MPV Prelim Diff (Auto) Neut % (Auto) Lymph % (Auto) [place] % (Auto) Eos % (Auto) Baso % (Auto) Neut # (Auto) Lymph # (Auto) [place] # (Auto) Eos # (Auto) Baso # (Auto) WBC Differential Diff Scan Differential Comment Platelet Estimate Platelet Morphology Ovalocytes [place] Bodies Acanthocytes (Spur) Sodium Cancelled Potassium Cancelled Chloride Cancelled Carbon Dioxide Cancelled Anion Gap Cancelled BUN Cancelled Creatinine Cancelled Estimated GFR Cancelled POC Glucose 426 H 301 H Random Glucose Cancelled Calcium Cancelled Phosphorus 1.6 L Magnesium Beta-Hydroxybutyric Acd Cancelled 03/30/18 03/30/18 03/30/18 18:17 18:44 20:09 WBC RBC Hgb Hct MCV MCH MCHC RDW Plt Count MPV Prelim Diff (Auto) Neut % (Auto) Lymph % (Auto) [place] % (Auto) Eos % (Auto) Baso % (Auto) Neut # (Auto) Lymph # (Auto) [place] # (Auto) Eos # (Auto) Baso # (Auto) WBC Differential Diff Scan Differential Comment Platelet Estimate Platelet Morphology Ovalocytes [place] Bodies Acanthocytes ([place]) Sodium Potassium Chloride Carbon Dioxide Anion Gap BUN Creatinine Estimated GFR POC Glucose 238 H 185 H 119 H Random Glucose Calcium Phosphorus Magnesium Beta-Hydroxybutyric Acd 03/30/18 03/30/18 03/30/18 20:45 21:18 22:00 WBC RBC Hgb Hct MCV MCH MCHC RDW Plt Count MPV Prelim Diff (Auto) Neut % (Auto) Lymph % (Auto) [place] % (Auto) Eos % (Auto) Baso % (Auto) Neut # (Auto) Lymph # (Auto) [place] # (Auto) Eos # (Auto) Baso # (Auto) WBC Differential Diff Scan Differential Comment Platelet Estimate Platelet Morphology Ovalocytes [place] Bodies Acanthocytes ([place]) Sodium Potassium Chloride Carbon Dioxide Anion Gap BUN Creatinine Estimated GFR POC Glucose 105 121 H 175 H Random Glucose Calcium Phosphorus Magnesium Beta-Hydroxybutyric Acd 03/30/18 03/30/18 03/30/18 22:40 23:05 23:57 WBC RBC Hgb Hct MCV MCH MCHC RDW Plt Count MPV Prelim Diff (Auto) Neut % (Auto) Lymph % (Auto) [place] % (Auto) Eos % (Auto) Baso % (Auto) Neut # (Auto) Lymph # (Auto) [place] # (Auto) Eos # (Auto) Baso # (Auto) WBC Differential Diff Scan Differential Comment Platelet Estimate Platelet Morphology Ovalocytes [place] Bodies Acanthocytes (Spur) Sodium 137 D Potassium 4.4 Chloride 104 D Carbon Dioxide 25.9 Anion Gap 7 BUN 20 H Creatinine 1.07 H Estimated GFR 53 L POC Glucose 201 H 223 H Random Glucose 177 H D Calcium 9.6 Phosphorus 1.7 L Magnesium 1.4 L Beta-Hydroxybutyric Acd 03/31/18 03/31/18 03/31/18 01:06 02:03 03:02 WBC RBC Hgb Hct MCV MCH MCHC RDW Plt Count MPV Prelim Diff (Auto) Neut % (Auto) Lymph % (Auto) [place] % (Auto) Eos % (Auto) Baso % (Auto) Neut # (Auto) Lymph # (Auto) [place] # (Auto) Eos # (Auto) Baso # (Auto) WBC Differential Diff Scan Differential Comment Platelet Estimate Platelet Morphology Ovalocytes [place] Bodies Acanthocytes ([place]) Sodium Potassium Chloride Carbon Dioxide Anion Gap BUN Creatinine Estimated GFR POC Glucose 253 H 204 H 156 H Random Glucose Calcium Phosphorus Magnesium Beta-Hydroxybutyric Acd 03/31/18 03/31/18 03/31/18 03:40 04:03 04:28 WBC RBC Hgb Hct MCV MCH MCHC RDW Plt Count MPV Prelim Diff (Auto) Neut % (Auto) Lymph % (Auto) [place] % (Auto) Eos % (Auto) Baso % (Auto) Neut # (Auto) Lymph # (Auto) [place] # (Auto) Eos # (Auto) Baso # (Auto) WBC Differential Diff Scan Differential Comment Platelet Estimate Platelet Morphology Ovalocytes [place] Bodies Acanthocytes (Spur) Sodium 140 Potassium 4.0 Chloride 106 Carbon Dioxide 27.4 Anion Gap 7 BUN 19 H Creatinine 0.99 Estimated GFR 58 L POC Glucose 103 81 Random Glucose 103 Calcium 9.3 Phosphorus 1.4 L Magnesium 1.3 L Beta-Hydroxybutyric Acd 03/31/18 03/31/18 03/31/18 05:23 06:29 07:37 WBC RBC Hgb Hct MCV MCH MCHC RDW Plt Count MPV Prelim Diff (Auto) Neut % (Auto) Lymph % (Auto) [place] % (Auto) Eos % (Auto) Baso % (Auto) Neut # (Auto) Lymph # (Auto) [place] # (Auto) Eos # (Auto) Baso # (Auto) WBC Differential Diff Scan Differential Comment Platelet Estimate Platelet Morphology Ovalocytes [place] Bodies Acanthocytes (Spur) Sodium Potassium Chloride Carbon Dioxide Anion Gap BUN Creatinine Estimated GFR POC Glucose 129 H 242 H 234 H Random Glucose Calcium Phosphorus Magnesium Beta-Hydroxybutyric Acd 03/31/18 03/31/18 03/31/18 09:24 10:32 11:19 WBC RBC Hgb Hct MCV MCH MCHC RDW Plt Count MPV Prelim Diff (Auto) Neut % (Auto) Lymph % (Auto) [place] % (Auto) Eos % (Auto) Baso % (Auto) Neut # (Auto) Lymph # (Auto) [place] # (Auto) Eos # (Auto) Baso # (Auto) WBC Differential Diff Scan Differential Comment Platelet Estimate Platelet Morphology Ovalocytes [place] Bodies Acanthocytes (Sp[place]) Sodium Potassium Chloride Carbon Dioxide Anion Gap BUN Creatinine Estimated GFR POC Glucose 181 H 164 H 150 H Random Glucose Calcium Phosphorus Magnesium Beta-Hydroxybutyric Acd 03/31/18 03/31/18 03/31/18 12:30 12:30 12:30 WBC 10.3 RBC 2.97 L Hgb 8.6 L Hct 26.6 L MCV 89.3 D MCH 28.9 MCHC 32.4 RDW 16.4 Plt Count 204 D MPV 11.7 H Prelim Diff (Auto) Slide review pending Neut % (Auto) 64.1 Lymph % (Auto) 23.7 [place] % (Auto) 9.9 H Eos % (Auto) 1.6 Baso % (Auto) 0.7 Neut # (Auto) 6.6 Lymph # (Auto) 2.4 [place] # (Auto) 1.0 H Eos # (Auto) 0.2 Baso # (Auto) 0.1 WBC Differential . Diff Scan Auto diff confirmed Differential Comment . Platelet Estimate Normal Platelet Morphology Giant H Ovalocytes 1+ H [place] Bodies Present H Acanthocytes (Spur) 1+ H Sodium 140 Potassium 4.8 D Chloride 106 Carbon Dioxide 25.5 Anion Gap 9 BUN 19 H Creatinine 1.03 H Estimated GFR 55 L POC Glucose Random Glucose 161 H Calcium 9.2 Phosphorus 1.8 L Magnesium 1.4 L Beta-Hydroxybutyric Acd Microbiology 03/27/18 20:00 Blood - Line Aerobic Blood Culture - Preliminary No growth in 4 days 03/27/18 20:00 Blood - Line Anaerobic Blood Culture - Preliminary No growth in 4 days 03/27/18 20:10 Blood - Line Aerobic Blood Culture - Preliminary No growth in 4 days 03/27/18 20:10 Blood - Line Anaerobic Blood Culture - Preliminary No growth in 4 days - Imaging Impressions Abdomen X-Ray 03/30/18 14:53 CONCLUSION: No dilated loops of bowel observed. Assessment and Plan - Assessment (1) Fever Code(s): R50.9 - Fever, unspecified Status: Acute (2) Renal transplant recipient Code(s): Z94.0 - Kidney transplant status Status: Acute (3) DM (diabetes mellitus) Code(s): E11.9 - Type 2 diabetes mellitus without complications Status: Acute (4) Abdominal pain Code(s): R10.9 - Unspecified abdominal pain Status: Acute - Plan 57 yof with complex medical/surgical history s/p [place]UR[place] in [place] in 06/2017. Admitted with left flank pain and FUO. No obvious source of infection yet identified at this time. Kidney function improved. Blood sugars better controlled. Patient thinks UOP is minimally decreased. Will have nurses document more closely. Abd pain seems improved, although some acute on chronic pain still present. Will continue NPO except ice chips and sips with meds for now. Await prograf level/ culture/ pending lab results. Will follow. (1) Fever Qualifiers: Fever type: unspecified Qualified Code(s): R50.9 - Fever, unspecified
[2018-03-31] MEDS: Insulin NovoLIN Regular Correctional Sugar Inj SQ SCH ×3 (16:16→20:45)
[2018-03-31] MEDS: Piperacil/Tazo 4.5 GM Premix 4.5 GM/100 ML BAG IV.SIG SCH ×2 (17:00→20:45)
[2018-03-31] MEDS: Senna/Docusate Sodium 8.6/50 MG Tablet PO SCH ×2 (20:02→20:46)
[2018-03-31] MEDS: [UNRECOGNIZED DRUG - OTHER] IV.SIG SCH ×9 (20:04)
[2018-04-01] MEDS: Morphine Inj 4 MG/ML Vial IV.PUSH PRN ×7 (00:16→20:54)
[2018-04-01] MEDS: Sod Chloride 0.9% Inj 1,000 ML IV.CONT SCH ×6 (03:30→23:38)
[2018-04-01] MEDS: Piperacil/Tazo 4.5 GM Premix 4.5 GM/100 ML BAG IV.SIG SCH ×2 (03:33→09:45)
[2018-04-01 05:35] LABS: Baso % (Auto) 0.5 % (0.0-2.0); Eos # (Auto) 0.1 th/mm3 (0.0-0.4); Eos % (Auto) 1.3 % (0.0-4.0); Hematocrit 28.4 % (35.0-46.0); Lymph # (Auto) 1.2 th/mm3 (1.0-4.8); Lymph % (Auto) 11.4 % (9.0-44.0); Mean Corpuscular HGB Conc 31.6 % (32.0-36.0); Mean Corpuscular Hemoglobin 28.3 pg (27.0-34.0); Mean Corpuscular Volume 89.3 fL (80.0-100.0); Mean Platelet Volume 10.9 fL (7.0-11.0); Mono # (Auto) 1.2 th/mm3 (0.0-0.9); Neut % (Auto) 75.8 % (16.0-70.0); Platelet Count 379 th/mm3 (150-450); Red Blood Count 3.18 mil/mm3 (4.00-5.30); Red Cell Distribution Width 16.1 % (11.6-17.2); White Blood Count 10.5 th/mm3 (4.0-11.0)
[2018-04-01 05:39] LABS: Calcium 9.4 mg/dL (8.5-10.1); Carbon Dioxide 25.6 meq/L (21.0-32.0); Magnesium 1.3 mg/dL (1.5-2.5); Potassium 4.3 meq/L (3.5-5.1)
[2018-04-01 05:40] LABS: Phosphorus 1.5 mg/dL (2.5-4.9)
[2018-04-01] MEDS: Dextrose 5%/NaCl 0.9% Inj 1,000 ML IV.CONT SCH ×5 (05:49→23:37)
[2018-04-01 07:00] LABS: Acanthocytes Occ; Platelet Estimate Normal (Normal)
[2018-04-01 07:01] LABS: Howell-Jolly Bodies Present
--- NOTE | 2018-04-01 08:21 | P.PNIM ---
Subjective Interval history: in no acute distress. remains afebrile. has some abdominal pain but with no nausea/ emesis. d/w the RN and no acute issues over night. Physical Exam Vital signs: Vital Signs 03/31/18 11:00 03/31/18 12:00 03/31/18 15:00 Temperature 98.3 F Pulse Rate 68 70 68 Respiratory Rate 14 Blood Pressure 121/74 Pulse Oximetry 98 03/31/18 16:00 03/31/18 19:00 03/31/18 20:00 Temperature 98.3 F 98.5 F Pulse Rate 68 69 71 Respiratory Rate 15 17 Blood Pressure 143/69 H 164/87 H Pulse Oximetry 94 L 96 03/31/18 20:46 03/31/18 23:00 04/01/18 00:00 Temperature 98.7 F Pulse Rate 73 64 Respiratory Rate 15 18 Blood Pressure 147/89 H Pulse Oximetry 04/01/18 03:00 04/01/18 04:00 04/01/18 07:00 Temperature 98.3 F Pulse Rate 82 67 63 Respiratory Rate 18 Blood Pressure 153/89 H Pulse Oximetry Intake & Output 03/31/18 04/01/18 04/01/18 18:59 06:59 18:59 Intake Total 300 / 300 3331 / 3331 Output Total 2600 / 2600 2500 / 2500 Balance -2300 / -2300 831 / 831 Weight 62.5 kg Intake: IV 300 / 300 3231 / 3231 Intralipid 20% Inj 250 ML @ 31. 250 / 250 25 mls/hr IV.SIG Q24H [facility] Rx#: [id number] Zyvox 600 mg Premix 300 ML @ 300 / 300 300 / 300 300 mls/hr IV.SIG Q12H [facility] Rx#: [id number] Zosyn 4.5 GM Premix 4.5 gm In 200 / 200 100 ml @ 200 mls/hr IV.SIG Q6H [facility] Rx#:[id number] Sodium Chloride 23.4% Inj 11 2481 / 2481 MEQ Sodium Acetate Inj 59 MEQ KCl Inj 40 MEQ Magnesium Chloride Inj 10 MEQ Calcium Chloride Inj 9 MEQ MVI-12 Inj 10 ML Folvite Inj 1 MG In TPN Fluid 2 Liter 2,000 ML @ 65 mls /hr IV.SIG Q24H RON[facility] Rx#: [id number] Oral 100 / 100 Output: Urine 2600 / 2600 2500 / 2500 Other: # Voids 4 Date of Last Bowel Movement 03/31/18 03/31/18 # Bowel Movements 1 - Constitutional no acute distress - Routine Respiratory Exam Present: CTA bilaterally - Routine Cardiovascular Exam Present: RRR - Routine Abdominal Exam Present: soft, tenderness (mild generalized tenderness.) - Routine Extremities Exam Comments: no pedal edema. - Routine Neurological Exam Present: alert, oriented X3 Results - Labs CBC & Chem 7: 04/01/18 04:55 04/01/18 04:55 Laboratory Results - last 24 hr 03/31/18 03/31/18 03/31/18 09:24 10:32 11:19 WBC RBC Hgb Hct MCV MCH MCHC RDW Plt Count MPV Prelim Diff (Auto) Neut % (Auto) Lymph % (Auto) [place] % (Auto) Eos % (Auto) Baso % (Auto) Neut # (Auto) Lymph # (Auto) [place] # (Auto) Eos # (Auto) Baso # (Auto) WBC Differential Diff Scan Differential Comment Platelet Estimate Platelet Morphology Ovalocytes [place] Bodies Acanthocytes (Sp[place]) Sodium Potassium Chloride Carbon Dioxide Anion Gap BUN Creatinine Estimated GFR POC Glucose 181 H 164 H 150 H Random Glucose Calcium Phosphorus Magnesium Tacrolimus 03/31/18 03/31/18 03/31/18 12:30 12:30 12:30 WBC 10.3 RBC 2.97 L Hgb 8.6 L Hct 26.6 L MCV 89.3 D MCH 28.9 MCHC 32.4 RDW 16.4 Plt Count 204 D MPV 11.7 H Prelim Diff (Auto) Slide review pending Neut % (Auto) 64.1 Lymph % (Auto) 23.7 [place] % (Auto) 9.9 H Eos % (Auto) 1.6 Baso % (Auto) 0.7 Neut # (Auto) 6.6 Lymph # (Auto) 2.4 [place] # (Auto) 1.0 H Eos # (Auto) 0.2 Baso # (Auto) 0.1 WBC Differential . Diff Scan Auto diff confirmed Differential Comment . Platelet Estimate Normal Platelet Morphology Giant H Ovalocytes 1+ H [place] Bodies Present H Acanthocytes (Spur) 1+ H Sodium 140 Potassium 4.8 D Chloride 106 Carbon Dioxide 25.5 Anion Gap 9 BUN 19 H Creatinine 1.03 H Estimated GFR 55 L POC Glucose Random Glucose 161 H Calcium 9.2 Phosphorus Magnesium 1.4 L Tacrolimus 12.2 03/31/18 03/31/18 03/31/18 12:30 17:36 17:40 WBC RBC Hgb Hct MCV MCH MCHC RDW Plt Count MPV Prelim Diff (Auto) Neut % (Auto) Lymph % (Auto) [place] % (Auto) Eos % (Auto) Baso % (Auto) Neut # (Auto) Lymph # (Auto) [place] # (Auto) Eos # (Auto) Baso # (Auto) WBC Differential Diff Scan Differential Comment Platelet Estimate Platelet Morphology Ovalocytes [place] Bodies Acanthocytes (Spur) Sodium Potassium Chloride Carbon Dioxide Anion Gap BUN Creatinine Estimated GFR POC Glucose 595 H* Greater than 600 H* Random Glucose Calcium Phosphorus 1.8 L Magnesium Tacrolimus 03/31/18 04/01/18 04/01/18 20:32 01:44 04:55 WBC RBC Hgb Hct MCV MCH MCHC RDW Plt Count MPV Prelim Diff (Auto) Neut % (Auto) Lymph % (Auto) [place] % (Auto) Eos % (Auto) Baso % (Auto) Neut # (Auto) Lymph # (Auto) [place] # (Auto) Eos # (Auto) Baso # (Auto) WBC Differential Diff Scan Differential Comment Platelet Estimate Platelet Morphology Ovalocytes [place] Bodies Acanthocytes (Spur) Sodium 135 L Potassium 4.3 Chloride 101 Carbon Dioxide 25.6 Anion Gap 8 BUN 26 H Creatinine 1.23 H Estimated GFR 45 L POC Glucose 483 H* 190 H Random Glucose 239 H Calcium 9.4 Phosphorus 1.5 L Magnesium 1.3 L Tacrolimus 04/01/18 04:55 WBC 10.5 RBC 3.18 L Hgb 9.0 L Hct 28.4 L MCV 89.3 MCH 28.3 MCHC 31.6 L RDW 16.1 Plt Count 379 D MPV 10.9 Prelim Diff (Auto) Slide review pending Neut % (Auto) 75.8 H Lymph % (Auto) 11.4 [place] % (Auto) 11.0 H Eos % (Auto) 1.3 Baso % (Auto) 0.5 Neut # (Auto) 8.0 H Lymph # (Auto) 1.2 [place] # (Auto) 1.2 H Eos # (Auto) 0.1 Baso # (Auto) 0.0 WBC Differential . Diff Scan Auto diff confirmed Differential Comment . Platelet Estimate Normal Platelet Morphology Giant H Ovalocytes [place] Bodies Present H Acanthocytes (Spur) Occ H Sodium Potassium Chloride Carbon Dioxide Anion Gap BUN Creatinine Estimated GFR POC Glucose Random Glucose Calcium Phosphorus Magnesium Tacrolimus Microbiology 03/27/18 20:00 Blood - Line Aerobic Blood Culture - Preliminary No growth in 4 days 03/27/18 20:00 Blood - Line Anaerobic Blood Culture - Preliminary No growth in 4 days 03/27/18 20:10 Blood - Line Aerobic Blood Culture - Preliminary No growth in 4 days 03/27/18 20:10 Blood - Line Anaerobic Blood Culture - Preliminary No growth in 4 days Assessment and Plan - Assessment (1) SIRS (systemic inflammatory response syndrome) Code(s): R65.10 - Systemic inflammatory response syndrome (SIRS) of non- infectious origin without acute organ dysfunction Status: Acute (2) H/O kidney transplant Code(s): Z94.0 - Kidney transplant status Status: Acute (3) Abdominal pain Code(s): R10.9 - Unspecified abdominal pain Status: Acute (4) On total parenteral nutrition (TPN) Code(s): Z78.9 - Other specified health status Status: Acute (5) Renal insufficiency Code(s): N28.9 - Disorder of kidney and ureter, unspecified Status: Acute (6) DM (diabetes mellitus) Code(s): E11.9 - Type 2 diabetes mellitus without complications Status: Acute - Plan Fever, SIRS Patient presented with leukocytosis and fever, source is unclear Chest x-ray was within normal limits, urinalysis showed no infection Patient is high risk due to immunocompromise state secondary to medications for renal transplant as well as shortened bowel Continue empiric coverage with Zyvox and Zosyn Blood cultures thus far negative ID following. H/o renal transplant Transplanted in June 2017 at [facility], Dr. Louis Continue Prograf, adjusted by nephrology Appreciate transplant surgery consult Thrombocytopenia- has improved. Patient has a history of thrombophilia with numbers up to 1.2 million, since admission she has trended downwards Hold Anagrelide for now, consider every other day dosing after that Abdominal pain Patient has a history of large areas of bowel resection, multiple surgeries, pancreatectomy and splenectomy She allegedly has 260 cm of small bowel with no colon She has a history of gastroparesis related to adhesions and stenoses in the bowel, she takes TPN for this Dietitian made TPN recs. Type 2 diabetes- now blood sugar has much improved. Patient's currently hyperglycemic related to infection and initially poorly controlled. started on insulin drip which was later on stopped; - now on regular insulin with TPN- along with accu-check with SSI. DVT Prophylaxis Lovenox Discharge Planning: possible discharge within the next 24-48 hrs if stable/ afebrile and cleared by consultants.
[2018-04-01] MEDS: Heparin Central Flush 100 UNIT/ML 5 ML Vial IV.FLUSH SCH (09:38)
[2018-04-01] MEDS: Carvedilol 12.5 MG Tablet PO SCH ×2 (09:48→20:58)
[2018-04-01] MEDS: Calcium Carbonate 500 MG Tablet PO SCH ×2 (09:49→20:58)
[2018-04-01] MEDS: Senna/Docusate Sodium 8.6/50 MG Tablet PO SCH ×2 (09:49→20:58)
[2018-04-01] MEDS: Insulin NovoLIN Regular Correctional Sugar Inj SQ SCH ×4 (09:51→21:49)
[2018-04-01] MEDS: Lipase/Protease/Amylase 24/76/120 DR Capsule PO SCH ×3 (09:52→17:38)
[2018-04-01] MEDS: Enoxaparin Inj 40 MG/0.4 ML Syringe SQ SCH (10:08)
[2018-04-01] MEDS: predniSONE 10 MG Tablet PO SCH (10:25)
[2018-04-01] MEDS: Chlorhexidine Gluconate 2% 1 Pack (2 Cloths) TOPICAL SCH (10:25)
--- NOTE | 2018-04-01 11:32 | P.PNTS ---
Subjective Interval history: No new c/o. Chronic abd pain persists.Is better than admit, but a bit worse than yesterday. Willing to try diabetic clear liquids Physical Exam Vital signs: Vital Signs 03/31/18 12:00 03/31/18 15:00 03/31/18 16:00 Temperature 98.3 F 98.3 F Pulse Rate 70 68 68 Respiratory Rate 14 15 Blood Pressure 121/74 143/69 H Pulse Oximetry 98 94 L 03/31/18 19:00 03/31/18 20:00 03/31/18 20:46 Temperature 98.5 F Pulse Rate 69 71 Respiratory Rate 17 15 Blood Pressure 164/87 H Pulse Oximetry 96 03/31/18 23:00 04/01/18 00:00 04/01/18 03:00 Temperature 98.7 F Pulse Rate 73 64 82 Respiratory Rate 18 Blood Pressure 147/89 H Pulse Oximetry 04/01/18 04:00 04/01/18 07:00 04/01/18 08:00 Temperature 98.3 F 98.0 F Pulse Rate 67 63 65 Respiratory Rate 18 18 Blood Pressure 153/89 H 149/88 H Pulse Oximetry 04/01/18 09:55 Temperature Pulse Rate Respiratory Rate 5 L Blood Pressure Pulse Oximetry Intake & Output 03/31/18 04/01/18 04/01/18 18:59 06:59 18:59 Intake Total 300 / 300 3331 / 3331 Output Total 2600 / 2600 2500 / 2500 Balance -2300 / -2300 831 / 831 Weight 62.5 kg Intake: IV 300 / 300 3231 / 3231 Intralipid 20% Inj 250 ML @ 31. 250 / 250 25 mls/hr IV.SIG Q24H [facility]ON[facility] Rx#: [id number] Zyvox 600 mg Premix 300 ML @ 300 / 300 300 / 300 300 mls/hr IV.SIG Q12H RON[facility] Rx#: [id number] Zosyn 4.5 GM Premix 4.5 gm In 200 / 200 100 ml @ 200 mls/hr IV.SIG Q6H RON[facility] Rx#:[id number] Sodium Chloride 23.4% Inj 11 2481 / 2481 MEQ Sodium Acetate Inj 59 MEQ KCl Inj 40 MEQ Magnesium Chloride Inj 10 MEQ Calcium Chloride Inj 9 MEQ MVI-12 Inj 10 ML Folvite Inj 1 MG In TPN Fluid 2 Liter 2,000 ML @ 65 mls /hr IV.SIG Q24H RONALD Rx#: [id number] Oral 100 / 100 Output: Urine 2600 / 2600 2500 / 2500 Other: # Voids 4 Date of Last Bowel Movement 03/31/18 03/31/18 03/31/18 # Bowel Movements 1 - Constitutional no acute distress - Routine HEENT Exam Head: Present: normocephalic, atraumatic ENT: Present: mucous membranes moist - Routine Neck Exam Present: supple - Routine Respiratory Exam Present: CTA bilaterally - Routine Cardiovascular Exam Present: RRR, S1, S2 - Routine Abdominal Exam Present: soft, normoactive bowel sounds Comments: Abd soft, minimal lower abd tenderness. No rebound/guarding - Routine Extremities Exam Present: pulses intact - Routine Skin Exam Present: intact - Routine Neurological Exam Present: alert, oriented X3 - Detailed Neurological Exam: Coma Scale Verbal Response: Oriented - Routine Psychiatric Exam Present: normal affect, normal thought process Results - Labs CBC & Chem 7: 04/01/18 04:55 04/01/18 04:55 Laboratory Results - last 24 hr 03/31/18 03/31/18 03/31/18 12:30 12:30 12:30 WBC 10.3 RBC 2.97 L Hgb 8.6 L Hct 26.6 L MCV 89.3 D MCH 28.9 MCHC 32.4 RDW 16.4 Plt Count 204 D MPV 11.7 H Prelim Diff (Auto) Slide review pending Neut % (Auto) 64.1 Lymph % (Auto) 23.7 [place] % (Auto) 9.9 H Eos % (Auto) 1.6 Baso % (Auto) 0.7 Neut # (Auto) 6.6 Lymph # (Auto) 2.4 [place] # (Auto) 1.0 H Eos # (Auto) 0.2 Baso # (Auto) 0.1 WBC Differential . Diff Scan Auto diff confirmed Differential Comment . Platelet Estimate Normal Platelet Morphology Giant H Ovalocytes 1+ H Ramachandran-Nipomo Bodies Present H Acanthocytes (Spur) 1+ H Sodium 140 Potassium 4.8 D Chloride 106 Carbon Dioxide 25.5 Anion Gap 9 BUN 19 H Creatinine 1.03 H Estimated GFR 55 L POC Glucose Random Glucose 161 H Calcium 9.2 Phosphorus Magnesium 1.4 L Tacrolimus 12.2 03/31/18 03/31/18 03/31/18 12:30 17:36 17:40 WBC RBC Hgb Hct MCV MCH MCHC RDW Plt Count MPV Prelim Diff (Auto) Neut % (Auto) Lymph % (Auto) [place] % (Auto) Eos % (Auto) Baso % (Auto) Neut # (Auto) Lymph # (Auto) [place] # (Auto) Eos # (Auto) Baso # (Auto) WBC Differential Diff Scan Differential Comment Platelet Estimate Platelet Morphology Ovalocytes Ramachandran-Nipomo Bodies Acanthocytes (Spur) Sodium Potassium Chloride Carbon Dioxide Anion Gap BUN Creatinine Estimated GFR POC Glucose 595 H* Greater than 600 H* Random Glucose Calcium Phosphorus 1.8 L Magnesium Tacrolimus 03/31/18 04/01/18 04/01/18 20:32 01:44 04:55 WBC RBC Hgb Hct MCV MCH MCHC RDW Plt Count MPV Prelim Diff (Auto) Neut % (Auto) Lymph % (Auto) [place] % (Auto) Eos % (Auto) Baso % (Auto) Neut # (Auto) Lymph # (Auto) [place] # (Auto) Eos # (Auto) Baso # (Auto) WBC Differential Diff Scan Differential Comment Platelet Estimate Platelet Morphology Ovalocytes Ramachandran-Nipomo Bodies Acanthocytes (Spur) Sodium 135 L Potassium 4.3 Chloride 101 Carbon Dioxide 25.6 Anion Gap 8 BUN 26 H Creatinine 1.23 H Estimated GFR 45 L POC Glucose 483 H* 190 H Random Glucose 239 H Calcium 9.4 Phosphorus 1.5 L Magnesium 1.3 L Tacrolimus 04/01/18 04:55 WBC 10.5 RBC 3.18 L Hgb 9.0 L Hct 28.4 L MCV 89.3 MCH 28.3 MCHC 31.6 L RDW 16.1 Plt Count 379 D MPV 10.9 Prelim Diff (Auto) Slide review pending Neut % (Auto) 75.8 H Lymph % (Auto) 11.4 [place] % (Auto) 11.0 H Eos % (Auto) 1.3 Baso % (Auto) 0.5 Neut # (Auto) 8.0 H Lymph # (Auto) 1.2 [place] # (Auto) 1.2 H Eos # (Auto) 0.1 Baso # (Auto) 0.0 WBC Differential . Diff Scan Auto diff confirmed Differential Comment . Platelet Estimate Normal Platelet Morphology Giant H Ovalocytes Ramachandran-Nipomo Bodies Present H Acanthocytes (Spur) Occ H Sodium Potassium Chloride Carbon Dioxide Anion Gap BUN Creatinine Estimated GFR POC Glucose Random Glucose Calcium Phosphorus Magnesium Tacrolimus Microbiology 03/27/18 20:00 Blood - Line Aerobic Blood Culture - Final No growth in 5 days 03/27/18 20:00 Blood - Line Anaerobic Blood Culture - Final No growth in 5 days 03/27/18 20:10 Blood - Line Aerobic Blood Culture - Final No growth in 5 days 03/27/18 20:10 Blood - Line Anaerobic Blood Culture - Final No growth in 5 days Assessment and Plan - Assessment (1) Fever Code(s): R50.9 - Fever, unspecified Status: Acute (2) Renal transplant recipient Code(s): Z94.0 - Kidney transplant status Status: Acute (3) DM (diabetes mellitus) Code(s): E11.9 - Type 2 diabetes mellitus without complications Status: Acute (4) Abdominal pain Code(s): R10.9 - Unspecified abdominal pain Status: Acute - Plan 57 yof with complex medical/surgical history s/p LURKT in [place] in 06/2017. Admitted with left flank pain and FUO. No obvious source of infection yet identified. Kidney function improved from admit, but is 1.23 today whcih is increased from yesterday (says it is still within her post-transplant baseline) . Will continue to trend for now. Blood sugars better controlled, since TPN changed at 2003, last night. (Was better yesterday, then climbed again, then came back down). UOP okay. Abd pain seems improved from admit, although some acute on chronic pain still present. Will start diabetic clears.Await prograf level. Will continue to follow. (1) Fever Qualifiers: Fever type: unspecified Qualified Code(s): R50.9 - Fever, unspecified
[2018-04-01] MEDS: Diphenoxylate/Atropine 2.5/0.025 MG Tablet PO SCH ×3 (11:46→17:38)
[2018-04-01] MEDS ORDERED: Potassium Phosphate Inj 15 MMOL in Sodium Chlor 0.9% Inj 150 ML IV.SIG ONE (12:00)
--- NOTE | 2018-04-01 12:41 | P.PNID ---
Subjective Remarks: 57 year old female with very complicated surgical Hx, S/P renal transplant admitted with fever Notes reviewed Has remained afebrile No Infection identified GI symptoms same; chronic nausea, abdominal pain, and diarrhea On TPN BS still high but better C/O itching Antibiotics: Zosyn Zyvox Lines: PIV Past Medical History: Reviewed Allergies/Adverse Reactions: Allergies metronidazole [From Flagyl] Allergy (Mild, Verified 03/27/18 18:27) Hives oxycodone Allergy (Mild, Verified 03/27/18 18:27) Redness of Skin oxytetracycline [From Terramycin] Allergy (Mild, Verified 03/27/18 18:27) Hives Objective Vital Signs 03/31/18 15:00 03/31/18 16:00 03/31/18 19:00 Temperature 98.3 F Pulse Rate 68 68 69 Respiratory Rate 15 Blood Pressure 143/69 H Pulse Oximetry 94 L 03/31/18 20:00 03/31/18 20:46 03/31/18 23:00 Temperature 98.5 F Pulse Rate 71 73 Respiratory Rate 17 15 Blood Pressure 164/87 H Pulse Oximetry 96 04/01/18 00:00 04/01/18 03:00 04/01/18 04:00 Temperature 98.7 F 98.3 F Pulse Rate 64 82 67 Respiratory Rate 18 18 Blood Pressure 147/89 H 153/89 H Pulse Oximetry 04/01/18 07:00 04/01/18 08:00 04/01/18 09:55 Temperature 98.0 F Pulse Rate 63 65 Respiratory Rate 18 5 L Blood Pressure 149/88 H Pulse Oximetry 04/01/18 11:00 04/01/18 11:45 04/01/18 11:57 Temperature 98.2 F Pulse Rate 68 73 Respiratory Rate 18 18 Blood Pressure 142/86 H Pulse Oximetry Intake & Output 03/31/18 04/01/18 04/01/18 18:59 06:59 18:59 Intake Total 300 / 300 3331 / 3331 100 / 100 Output Total 2600 / 2600 2500 / 2500 Balance -2300 / -2300 831 / 831 100 / 100 Weight 62.5 kg Intake: IV 300 / 300 3231 / 3231 100 / 100 Intralipid 20% Inj 250 ML @ 31. 250 / 250 25 mls/hr IV.SIG Q24H [facility] Rx#: [id number] Zyvox 600 mg Premix 300 ML @ 300 / 300 300 / 300 300 mls/hr IV.SIG Q12H [facility] Rx#: [id number] Zosyn 4.5 GM Premix 4.5 gm In 200 / 200 100 / 100 100 ml @ 200 mls/hr IV.SIG Q6H [facility] Rx#:[id number] Sodium Chloride 23.4% Inj 11 2481 / 2481 MEQ Sodium Acetate Inj 59 MEQ KCl Inj 40 MEQ Magnesium Chloride Inj 10 MEQ Calcium Chloride Inj 9 MEQ MVI-12 Inj 10 ML Folvite Inj 1 MG In TPN Fluid 2 Liter 2,000 ML @ 65 mls /hr IV.SIG Q24H RONAL[facility] Rx#: [id number] Oral 100 / 100 Output: Urine 2600 / 2600 2500 / 2500 Other: # Voids 4 Date of Last Bowel Movement 03/31/18 03/31/18 03/31/18 # Bowel Movements 1 03/27/18 20:00 Blood - Line Aerobic Blood Culture - Final No growth in 5 days 03/27/18 20:00 Blood - Line Anaerobic Blood Culture - Final No growth in 5 days 03/27/18 20:10 Blood - Line Aerobic Blood Culture - Final No growth in 5 days 03/27/18 20:10 Blood - Line Anaerobic Blood Culture - Final No growth in 5 days Lab - Hematology Results 03/31/18 04/01/18 12:30 04:55 WBC 10.3 10.5 RBC 2.97 L 3.18 L Hgb 8.6 L 9.0 L Hct 26.6 L 28.4 L MCV 89.3 D 89.3 MCH 28.9 28.3 MCHC 32.4 31.6 L RDW 16.4 16.1 Plt Count 204 D 379 D MPV 11.7 H 10.9 Prelim Diff (Auto) Slide review pending Slide review pending Neut % (Auto) 64.1 75.8 H Lymph % (Auto) 23.7 11.4 Burt % (Auto) 9.9 H 11.0 H Eos % (Auto) 1.6 1.3 Baso % (Auto) 0.7 0.5 Neut # (Auto) 6.6 8.0 H Lymph # (Auto) 2.4 1.2 Burt # (Auto) 1.0 H 1.2 H Eos # (Auto) 0.2 0.1 Baso # (Auto) 0.1 0.0 WBC Differential . . Diff Scan Auto diff confirmed Auto diff confirmed Differential Comment . . Platelet Estimate Normal Normal Platelet Morphology Giant H Giant H Ovalocytes 1+ H Ramachandran-[place] Bodies Present H Present H Acanthocytes (Spur) 1+ H Occ H Lab - Chemistry Results 03/30/18 03/30/18 03/30/18 10:10 16:07 17:09 Sodium Cancelled Potassium Cancelled Chloride Cancelled Carbon Dioxide Cancelled Anion Gap Cancelled BUN Cancelled Creatinine Cancelled Estimated GFR Cancelled POC Glucose 426 H 301 H Random Glucose Cancelled Calcium Cancelled Phosphorus 1.6 L Magnesium Beta-Hydroxybutyric Acd Cancelled 03/30/18 03/30/18 03/30/18 18:17 18:44 20:09 Sodium Potassium Chloride Carbon Dioxide Anion Gap BUN Creatinine Estimated GFR POC Glucose 238 H 185 H 119 H Random Glucose Calcium Phosphorus Magnesium Beta-Hydroxybutyric Acd 03/30/18 03/30/18 03/30/18 20:45 21:18 22:00 Sodium Potassium Chloride Carbon Dioxide Anion Gap BUN Creatinine Estimated GFR POC Glucose 105 121 H 175 H Random Glucose Calcium Phosphorus Magnesium Beta-Hydroxybutyric Acd 03/30/18 03/30/18 03/30/18 22:40 23:05 23:57 Sodium 137 D Potassium 4.4 Chloride 104 D Carbon Dioxide 25.9 Anion Gap 7 BUN 20 H Creatinine 1.07 H Estimated GFR 53 L POC Glucose 201 H 223 H Random Glucose 177 H D Calcium 9.6 Phosphorus 1.7 L Magnesium 1.4 L Beta-Hydroxybutyric Acd 03/31/18 03/31/18 03/31/18 01:06 02:03 03:02 Sodium Potassium Chloride Carbon Dioxide Anion Gap BUN Creatinine Estimated GFR POC Glucose 253 H 204 H 156 H Random Glucose Calcium Phosphorus Magnesium Beta-Hydroxybutyric Acd 03/31/18 03/31/18 03/31/18 03:40 04:03 04:28 Sodium 140 Potassium 4.0 Chloride 106 Carbon Dioxide 27.4 Anion Gap 7 BUN 19 H Creatinine 0.99 Estimated GFR 58 L POC Glucose 103 81 Random Glucose 103 Calcium 9.3 Phosphorus 1.4 L Magnesium 1.3 L Beta-Hydroxybutyric Acd 03/31/18 03/31/18 03/31/18 05:23 06:29 07:37 Sodium Potassium Chloride Carbon Dioxide Anion Gap BUN Creatinine Estimated GFR POC Glucose 129 H 242 H 234 H Random Glucose Calcium Phosphorus Magnesium Beta-Hydroxybutyric Acd 03/31/18 03/31/18 03/31/18 09:24 10:32 11:19 Sodium Potassium Chloride Carbon Dioxide Anion Gap BUN Creatinine Estimated GFR POC Glucose 181 H 164 H 150 H Random Glucose Calcium Phosphorus Magnesium Beta-Hydroxybutyric Acd 03/31/18 03/31/18 03/31/18 12:30 12:30 17:36 Sodium 140 Potassium 4.8 D Chloride 106 Carbon Dioxide 25.5 Anion Gap 9 BUN 19 H Creatinine 1.03 H Estimated GFR 55 L POC Glucose 595 H* Random Glucose 161 H Calcium 9.2 Phosphorus 1.8 L Magnesium 1.4 L Beta-Hydroxybutyric Acd 03/31/18 03/31/18 04/01/18 17:40 20:32 01:44 Sodium Potassium Chloride Carbon Dioxide Anion Gap BUN Creatinine Estimated GFR POC Glucose Greater than 600 H* 483 H* 190 H Random Glucose Calcium Phosphorus Magnesium Beta-Hydroxybutyric Acd 04/01/18 04:55 Sodium 135 L Potassium 4.3 Chloride 101 Carbon Dioxide 25.6 Anion Gap 8 BUN 26 H Creatinine 1.23 H Estimated GFR 45 L POC Glucose Random Glucose 239 H Calcium 9.4 Phosphorus 1.5 L Magnesium 1.3 L Beta-Hydroxybutyric Acd Imaging: ITS Impressions Abdomen/Pelvis CT 03/27/18 00:00 CONCLUSION: 1. Status post cholecystectomy with prominent intrahepatic pneumobilia. Numerous subcentimeter hypodensities lesions in both lobes of the liver, most prominently in the right lobe. Although nonspecific, cannot exclude hepatic abscesses in the appropriate clinical setting. Comparisons with prior CT examinations would be beneficial to determine chronicity. 2. 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 Mild hydronephrosis of the transplant kidney without perirenal fluid collections or radiopaque calculi. 3. Status post near total colectomy with multiple suture lines in the left upper quadrant. Several loops of small bowel in the left upper quadrant are marginally dilated without definitive evidence for bowel obstruction. 4. Additional ancillary findings, as above. Chest X-Ray 03/27/18 19:28 CONCLUSION: No acute cardiopulmonary disease. There is no evidence of pneumonia. Renal Ultrasound 03/29/18 00:00 CONCLUSION: 1. Very mild hydronephrosis of the transplant kidney. 2. 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 Abdomen X-Ray 03/30/18 14:53 CONCLUSION: No dilated loops of bowel observed. Physical Exam: GENERAL: Patient is a well-nourished, well-developed female, awake and alert, not in respiratory distress. SKIN: Warm and dry. No generalized rash, dry skin. HEAD: Atraumatic. Normocephalic. No temporal wasting, or tenderness. EYES: [place] conjunctiva. No petechia or hemorrhage. Pupils equal, round and reactive to light. Extraocular movements full and intact. No scleral icterus. No injection or drainage. EARS, NOSE AND THROAT: Nose without bleeding or purulent nasal discharge. Mucous membranes pink and moist. No oral lesions noted. No exudate. No oral thrush. NECK: Trachea midline. Supple and not tender, no meningeal signs CARDIOVASCULAR: Regular rate and rhythm. No murmurs, rubs or gallops heard RESPIRATORY: Clear to auscultation. Breath sounds equal bilaterally. No rales , wheezing or rhonchi ABDOMEN: Soft, mildly tender, nondistended. healed midline incisions Bowel sounds present and normoactive. No guarding. No rebound. No organomegaly. EXTREMITIES: No clubbing, cyanosis, or edema. No calf tenderness. Well perfused and warm. NEUROLOGICAL: Non-focal. PSYCHIATRIC: Normal affect, calm and cooperative. 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
[2018-04-01] MEDS: Mag Sulf 1 gm/100 ml Premix 100 ML IV.SIG SCH ×2 (13:49→15:28)
--- NOTE | 2018-04-01 16:01 | P.PNNP ---
Subjective Interval history: Patient blood sugars are fluctuating Physical Exam Vital signs: Vital Signs 03/31/18 19:00 03/31/18 20:00 03/31/18 20:46 Temperature 98.5 F Pulse Rate 69 71 Respiratory Rate 17 15 Blood Pressure 164/87 H Pulse Oximetry 96 03/31/18 23:00 04/01/18 00:00 04/01/18 03:00 Temperature 98.7 F Pulse Rate 73 64 82 Respiratory Rate 18 Blood Pressure 147/89 H Pulse Oximetry 04/01/18 04:00 04/01/18 07:00 04/01/18 08:00 Temperature 98.3 F 98.0 F Pulse Rate 67 63 65 Respiratory Rate 18 18 Blood Pressure 153/89 H 149/88 H Pulse Oximetry 04/01/18 09:55 04/01/18 11:00 04/01/18 11:45 Temperature Pulse Rate 68 Respiratory Rate 5 L 18 Blood Pressure Pulse Oximetry 04/01/18 11:57 04/01/18 14:59 04/01/18 15:00 Temperature 98.2 F 98.6 F Pulse Rate 73 69 Respiratory Rate 18 18 20 Blood Pressure 142/86 H 137/86 Pulse Oximetry Intake & Output 03/31/18 04/01/18 04/01/18 18:59 06:59 18:59 Intake Total 300 / 300 3331 / 3331 2609.6937 / 2609.6937 Output Total 2600 / 2600 2500 / 2500 Balance -2300 / -2300 831 / 831 2609.6937 / 2609.6937 Weight 62.5 kg Intake: IV 300 / 300 3231 / 3231 2609.6937 / 2609.6937 D5W/Normal Saline Inj 1,000 ML 200 / 200 @ 200 mls/hr IV.CONT .Q5H RONALD Rx#:[id number] Intralipid 20% Inj 250 ML @ 31. 250 / 250 25 mls/hr IV.SIG Q24H [facility]ONALD Rx#: [id number] Zyvox 600 mg Premix 300 ML @ 300 / 300 300 / 300 300 mls/hr IV.SIG Q12H [facility] Rx#: [id number] Magnesium Sulfate 1 gm/D5W 100 100 / 100 ml Premix 100 ML @ 100 mls/hr IV.SIG Q1H [facility] Rx#:[id number] Zosyn 4.5 GM Premix 4.5 gm In 200 / 200 100 / 100 100 ml @ 200 mls/hr IV.SIG Q6H [facility]AL[facility] Rx#:[id number] KCl 20 mEq Premix Inj 20 meq In 100 / 100 100 ml @ 100 mls/hr IV.SIG Q1H PRN Rx#:[id number] Sodium Chloride 23.4% Inj 11 2481 / 2481 MEQ Sodium Acetate Inj 59 MEQ KCl Inj 40 MEQ Magnesium Chloride Inj 10 MEQ Calcium Chloride Inj 9 MEQ MVI-12 Inj 10 ML Folvite Inj 1 MG In TPN Fluid 2 Liter 2,000 ML @ 65 mls /hr IV.SIG Q24H [facility]ONALD Rx#: [id number] Sodium Chloride 23.4% Inj 11 2058.6937 / 2058.6937 MEQ Sodium Acetate Inj 59 MEQ KCl Inj 40 MEQ Magnesium Chloride Inj 10 MEQ Calcium Chloride Inj 9 MEQ MVI-12 Inj 10 ML Folvite Inj 1 MG NovoLIN R Inj 30 UNITS In TPN Fluid 2 Liter 2,000 ML @ 65.009 mls/hr IV.SIG Q24H [facility]ONALD Rx#:[id number] Oral 100 / 100 Output: Urine 2600 / 2600 2500 / 2500 Other: # Voids 4 Date of Last Bowel Movement 03/31/18 03/31/18 03/31/18 # Bowel Movements 1 Narrative: GENERAL: Well-nourished, well-developed patient. SKIN: Warm and dry. HEAD: Normocephalic. EYES: No scleral icterus. No injection or drainage. NECK: Supple, trachea midline. No JVD or lymphadenopathy. CARDIOVASCULAR: Regular rate and rhythm without murmurs, gallops, or rubs. Ward catheter on the right internal jugular. RESPIRATORY: Breath sounds equal bilaterally. No accessory muscle use. GASTROINTESTINAL: Abdomen soft, mildly tender, nondistended. Multiple surgical scar there is a right lower abdominal scar, all are healed. EXTREMITIES: No edema NEUROLOGICAL: Awake, alert, and oriented x 3. Non-focal. Assessment and Plan - Assessment (1) Acute renal failure Code(s): N17.9 - Acute kidney failure, unspecified Status: Acute (2) Thrombocytopenia Code(s): D69.6 - Thrombocytopenia, unspecified Status: Acute (3) Fever Code(s): R50.9 - Fever, unspecified Status: Acute Qualifiers: Fever type: unspecified Qualified Code(s): R50.9 - Fever, unspecified (4) Renal transplant recipient Code(s): Z94.0 - Kidney transplant status Status: Acute (5) On total parenteral nutrition (TPN) Code(s): Z78.9 - Other specified health status Status: Acute (6) DM (diabetes mellitus) Code(s): E11.9 - Type 2 diabetes mellitus without complications Status: Acute (7) Abdominal pain Code(s): R10.9 - Unspecified abdominal pain Status: Acute - Plan Patient has acute renal failure with baseline creatinine around 0.9 currently at 1.2, Phosphorus and magnesium were replaced Blood glucose fluctuate Monitor tacrolimus level Follow BMP Avoid nephrotoxins
[2018-04-01] MEDS: [UNRECOGNIZED DRUG - OTHER] IV.SIG SCH ×9 (20:49)
[2018-04-02] MEDS: Morphine Inj 4 MG/ML Vial IV.PUSH PRN ×8 (00:57→23:19)
[2018-04-02] MEDS: Chlorhexidine Gluconate 2% 1 Pack (2 Cloths) TOPICAL SCH (04:00)
[2018-04-02] MEDS: Sod Chloride 0.9% Inj 1,000 ML IV.CONT SCH ×5 (04:17→21:39)
[2018-04-02] MEDS: Dextrose 5%/NaCl 0.9% Inj 1,000 ML IV.CONT SCH ×4 (04:30→21:39)
[2018-04-02 05:08] LABS: Baso % (Auto) 0.5 % (0.0-2.0); Eos # (Auto) 0.3 th/mm3 (0.0-0.4); Hematocrit 29.7 % (35.0-46.0); Hemoglobin 9.4 gm/dL (11.6-15.3); Lymph # (Auto) 1.2 th/mm3 (1.0-4.8); Lymph % (Auto) 13.4 % (9.0-44.0); Mean Corpuscular HGB Conc 31.7 % (32.0-36.0); Mean Corpuscular Hemoglobin 28.5 pg (27.0-34.0); Mean Corpuscular Volume 89.9 fL (80.0-100.0); Mean Platelet Volume 9.4 fL (7.0-11.0); Mono # (Auto) 0.9 th/mm3 (0.0-0.9); Mono % (Auto) 10.3 % (0.0-8.0); Neut # (Auto) 6.4 th/mm3 (1.8-7.7); Neut % (Auto) 72.8 % (16.0-70.0); Platelet Count 606 th/mm3 (150-450); Red Blood Count 3.31 mil/mm3 (4.00-5.30); Red Cell Distribution Width 16.2 % (11.6-17.2); White Blood Count 8.8 th/mm3 (4.0-11.0)
[2018-04-02 05:42] LABS: Calcium 9.4 mg/dL (8.5-10.1); Carbon Dioxide 29.4 meq/L (21.0-32.0); Magnesium 1.7 mg/dL (1.5-2.5); Phosphorus 1.9 mg/dL (2.5-4.9); Potassium 4.4 meq/L (3.5-5.1)
[2018-04-02] MEDS: Insulin NovoLIN Regular Correctional Sugar Inj SQ SCH ×4 (08:32→21:20)
--- NOTE | 2018-04-02 09:13 | P.PNIM ---
Subjective Interval history: in no acute distress. looks and feels more comfortable today. abdominal pain seems to be improving. remains afebrile. complaining of oral thrush. Physical Exam Vital signs: Vital Signs 04/01/18 09:55 04/01/18 11:00 04/01/18 11:45 Temperature Pulse Rate 68 Respiratory Rate 5 L 18 Blood Pressure 04/01/18 11:57 04/01/18 14:59 04/01/18 15:00 Temperature 98.2 F 98.6 F Pulse Rate 73 69 Respiratory Rate 18 18 20 Blood Pressure 142/86 H 137/86 04/01/18 17:45 04/01/18 19:00 04/01/18 20:00 Temperature 97.9 F Pulse Rate 61 Respiratory Rate 18 18 18 Blood Pressure 140/91 H 04/01/18 23:00 04/02/18 03:00 04/02/18 03:35 Temperature 98.4 F 98.2 F Pulse Rate 63 69 Respiratory Rate 20 18 18 Blood Pressure 136/88 164/94 H Intake & Output 04/01/18 04/02/18 04/02/18 18:59 06:59 18:59 Intake Total 3314.6937 / 3314.6937 1903 / 1903 Output Total 1800 / 1800 2100 / 2100 Balance 1514.6937 / 1514.6937 -197 / -197 Weight 62 kg Intake: IV 2864.6937 / 2864.6937 1653 / 1653 D5W/Normal Saline Inj 1,000 ML 200 / 200 @ 200 mls/hr IV.CONT .Q5H [facility] Rx#:[id number] Intralipid 20% Inj 250 ML @ 31. 200 / 200 25 mls/hr IV.SIG Q24H [facility] Rx#: [id number] Magnesium Sulfate 1 gm/D5W 100 200 / 200 ml Premix 100 ML @ 100 mls/hr IV.SIG Q1H [facility] Rx#:[id number] Zosyn 4.5 GM Premix 4.5 gm In 100 / 100 100 ml @ 200 mls/hr IV.SIG Q6H [facility] Rx#:[id number] KCl 20 mEq Premix Inj 20 meq In 100 / 100 100 ml @ 100 mls/hr IV.SIG Q1H PRN Rx#:[id number] Potassium Phosphate Inj 15 MMOL 155 / 155 In NS Inj 150 ML @ 38.75 mls/ hr IV.SIG ONCE ONE Rx#:[id number] Sodium Chloride 23.4% Inj 11 / 1453 / 1453 MEQ Sodium Acetate Inj 59 MEQ KCl Inj 40 MEQ Magnesium Chloride Inj 10 MEQ Calcium Chloride Inj 9 MEQ MVI-12 Inj 10 ML Folvite Inj 1 MG NovoLIN R Inj 30 UNITS In TPN Fluid 2 Liter 2,000 ML @ 65.009 mls/hr IV.SIG Q24H [facility] Rx#:[id number] Oral 450 / 450 250 / 250 Output: Urine 1800 / 1800 2100 / 2100 Other: # Voids 3 4 Date of Last Bowel Movement 03/31/18 03/31/18 - Constitutional no acute distress - Routine HEENT Exam Comments: oral thrush noted. - Routine Respiratory Exam Present: CTA bilaterally - Routine Cardiovascular Exam Present: RRR - Routine Abdominal Exam Present: soft, tenderness - Routine Extremities Exam Comments: no pedal edema. - Routine Neurological Exam Present: alert, oriented X3 Results - Labs CBC & Chem 7: 04/02/18 04:55 04/02/18 04:55 Laboratory Results - last 24 hr 04/01/18 04/01/18 04/01/18 04:55 11:15 13:37 WBC RBC Hgb Hct MCV MCH MCHC RDW Plt Count MPV Neut % (Auto) Lymph % (Auto) [place] % (Auto) Eos % (Auto) Baso % (Auto) Neut # (Auto) Lymph # (Auto) [place] # (Auto) Eos # (Auto) Baso # (Auto) WBC Differential Differential Comment Sodium Potassium Chloride Carbon Dioxide Anion Gap BUN Creatinine Estimated GFR POC Glucose 152 H Random Glucose Calcium Phosphorus Magnesium Tacrolimus 12.6 9.0 04/01/18 04/01/18 04/02/18 17:45 21:42 04:55 WBC RBC Hgb Hct MCV MCH MCHC RDW Plt Count MPV Neut % (Auto) Lymph % (Auto) [place] % (Auto) Eos % (Auto) Baso % (Auto) Neut # (Auto) Lymph # (Auto) [place] # (Auto) Eos # (Auto) Baso # (Auto) WBC Differential Differential Comment Sodium 135 L Potassium 4.4 Chloride 97 L Carbon Dioxide 29.4 Anion Gap 9 BUN 24 H Creatinine 1.06 H Estimated GFR 53 L POC Glucose 106 177 H Random Glucose 189 H Calcium 9.4 Phosphorus 1.9 L Magnesium 1.7 Tacrolimus 04/02/18 04/02/18 04:55 08:12 WBC 8.8 RBC 3.31 L Hgb 9.4 L Hct 29.7 L MCV 89.9 MCH 28.5 MCHC 31.7 L RDW 16.2 Plt Count 606 H D MPV 9.4 Neut % (Auto) 72.8 H Lymph % (Auto) 13.4 [place] % (Auto) 10.3 H Eos % (Auto) 3.0 Baso % (Auto) 0.5 Neut # (Auto) 6.4 Lymph # (Auto) 1.2 [place] # (Auto) 0.9 Eos # (Auto) 0.3 Baso # (Auto) 0.0 WBC Differential . Differential Comment Auto diff final Sodium Potassium Chloride Carbon Dioxide Anion Gap BUN Creatinine Estimated GFR POC Glucose 207 H Random Glucose Calcium Phosphorus Magnesium Tacrolimus Microbiology 03/27/18 20:00 Blood - Line Aerobic Blood Culture - Final No growth in 5 days 03/27/18 20:00 Blood - Line Anaerobic Blood Culture - Final No growth in 5 days 03/27/18 20:10 Blood - Line Aerobic Blood Culture - Final No growth in 5 days 03/27/18 20:10 Blood - Line Anaerobic Blood Culture - Final No growth in 5 days Assessment and Plan - Assessment (1) SIRS (systemic inflammatory response syndrome) Code(s): R65.10 - Systemic inflammatory response syndrome (SIRS) of non- infectious origin without acute organ dysfunction Status: Acute (2) H/O kidney transplant Code(s): Z94.0 - Kidney transplant status Status: Acute (3) Abdominal pain Code(s): R10.9 - Unspecified abdominal pain Status: Acute (4) On total parenteral nutrition (TPN) Code(s): Z78.9 - Other specified health status Status: Acute (5) Renal insufficiency Code(s): N28.9 - Disorder of kidney and ureter, unspecified Status: Acute (6) DM (diabetes mellitus) Code(s): E11.9 - Type 2 diabetes mellitus without complications Status: Acute - Plan Fever, SIRS- fever now has resolved. Chest x-ray was within normal limits, urinalysis showed no infection Blood cultures thus far negative antibiotics discontinued. ID following; previously d/w . H/o renal transplant Transplanted in June 2017 at [facility], Dr. Louis Continue Prograf, adjusted by nephrology Appreciate transplant surgery consult Thrombocytopenia- has resolved and now the platelet count is trending up. Patient has a history of thrombophilia with numbers up to 1.2 million, initially trended downwards- will resume Anagrelide , consider every other day dosing after that. Abdominal pain- better. Patient has a history of large areas of bowel resection, multiple surgeries, pancreatectomy and splenectomy She allegedly has 260 cm of small bowel with no colon She has a history of gastroparesis related to adhesions and stenoses in the bowel, she takes TPN for this Dietitian made TPN recs. will gradually advance the diet. Type 2 diabetes- now blood sugar has much improved. Patient's currently hyperglycemic related to infection and initially poorly controlled. started on insulin drip which was later on stopped; - now on regular insulin with TPN- along with accu-check with SSI. Hypophosphatemia; will replace and monitor oral thrush; start on Nystatin DVT Prophylaxis Lovenox Discharge Planning: possible discharge within the next 24-48 hrs if stable and tolerating the diet.
[2018-04-02] MEDS ORDERED: Potassium Phosphate Inj 15 MMOL in Sodium Chlor 0.9% Inj 150 ML IV.SIG ONE (10:00)
[2018-04-02] MEDS: Carvedilol 12.5 MG Tablet PO SCH ×2 (10:24→21:19)
[2018-04-02] MEDS: Lipase/Protease/Amylase 24/76/120 DR Capsule PO SCH ×3 (10:24→17:33)
[2018-04-02] MEDS: predniSONE 10 MG Tablet PO SCH (10:24)
[2018-04-02] MEDS: Calcium Carbonate 500 MG Tablet PO SCH ×2 (10:24→21:19)
[2018-04-02] MEDS: Diphenoxylate/Atropine 2.5/0.025 MG Tablet PO SCH ×3 (10:25→17:48)
[2018-04-02] MEDS: Enoxaparin Inj 40 MG/0.4 ML Syringe SQ SCH (10:25)
[2018-04-02] MEDS: Heparin Central Flush 100 UNIT/ML 5 ML Vial IV.FLUSH SCH (10:26)
[2018-04-02] MEDS: Senna/Docusate Sodium 8.6/50 MG Tablet PO SCH ×2 (10:31→21:19)
[2018-04-02] MEDS: Nystatin Liq 500,000 UNIT/5 ML UDC SWISH-SWAL SCH ×4 (10:35→21:19)
--- NOTE | 2018-04-02 12:14 | P.PNTS ---
Subjective Interval history: Some oral c/o (oral soreness). Continued chronic abd pain. Physical Exam Vital signs: Vital Signs 04/01/18 11:57 04/01/18 14:59 04/01/18 15:00 Temperature 98.2 F 98.6 F Pulse Rate 73 69 Respiratory Rate 18 18 20 Blood Pressure 142/86 H 137/86 Pulse Oximetry 04/01/18 17:45 04/01/18 19:00 04/01/18 20:00 Temperature 97.9 F Pulse Rate 61 Respiratory Rate 18 18 18 Blood Pressure 140/91 H Pulse Oximetry 04/01/18 23:00 04/02/18 03:00 04/02/18 03:35 Temperature 98.4 F 98.2 F Pulse Rate 63 69 Respiratory Rate 20 18 18 Blood Pressure 136/88 164/94 H Pulse Oximetry 04/02/18 07:00 Temperature 98.7 F Pulse Rate 69 Respiratory Rate 20 Blood Pressure 153/95 H Pulse Oximetry 98 Intake & Output 04/01/18 04/02/18 04/02/18 18:59 06:59 18:59 Intake Total 3314.6937 / 3314.6937 1903 / 1903 Output Total 1800 / 1800 2100 / 2100 Balance 1514.6937 / 1514.6937 -197 / -197 Weight 62 kg Intake: IV 2864.6937 / 2864.6937 1653 / 1653 D5W/Normal Saline Inj 1,000 ML 200 / 200 @ 200 mls/hr IV.CONT .Q5H [facility] Rx#:[id number] Intralipid 20% Inj 250 ML @ 31. 200 / 200 25 mls/hr IV.SIG Q24H [facility] Rx#: [id number] Magnesium Sulfate 1 gm/D5W 100 200 / 200 ml Premix 100 ML @ 100 mls/hr IV.SIG Q1H [facility] Rx#:[id number] Zosyn 4.5 GM Premix 4.5 gm In 100 / 100 100 ml @ 200 mls/hr IV.SIG Q6H [facility] Rx#:[id number] KCl 20 mEq Premix Inj 20 meq In 100 / 100 100 ml @ 100 mls/hr IV.SIG Q1H PRN Rx#:[id number] Potassium Phosphate Inj 15 MMOL 155 / 155 In NS Inj 150 ML @ 38.75 mls/ hr IV.SIG ONCE ONE Rx#:[id number] Sodium Chloride 23.4% Inj 11 / 1453 / 1453 MEQ Sodium Acetate Inj 59 MEQ KCl Inj 40 MEQ Magnesium Chloride Inj 10 MEQ Calcium Chloride Inj 9 MEQ MVI-12 Inj 10 ML Folvite Inj 1 MG NovoLIN R Inj 30 UNITS In TPN Fluid 2 Liter 2,000 ML @ 65.009 mls/hr IV.SIG Q24H [facility] Rx#:[id number] Oral 450 / 450 250 / 250 Output: Urine 1800 / 1800 2100 / 2100 Other: # Voids 3 4 Date of Last Bowel Movement 03/31/18 03/31/18 03/31/18 - Constitutional no acute distress - Routine HEENT Exam Head: Present: normocephalic, atraumatic ENT: Present: mucous membranes moist Comments: oral thrush noted - Routine Neck Exam Present: supple - Routine Respiratory Exam Present: CTA bilaterally - Routine Cardiovascular Exam Present: RRR, S1, S2 - Routine Abdominal Exam Present: soft, normoactive bowel sounds Comments: minimal lower abd pain. No rebound/guarding - Routine Extremities Exam Present: pulses intact - Routine Skin Exam Present: intact - Routine Neurological Exam Present: alert, oriented X3 - Detailed Neurological Exam: Coma Scale Verbal Response: Oriented - Routine Psychiatric Exam Present: normal affect, normal thought process Results - Labs CBC & Chem 7: 04/02/18 04:55 04/02/18 04:55 Laboratory Results - last 24 hr 04/01/18 04/01/18 04/01/18 04:55 11:15 13:37 WBC RBC Hgb Hct MCV MCH MCHC RDW Plt Count MPV Neut % (Auto) Lymph % (Auto) [place] % (Auto) Eos % (Auto) Baso % (Auto) Neut # (Auto) Lymph # (Auto) [place] # (Auto) Eos # (Auto) Baso # (Auto) WBC Differential Differential Comment Sodium Potassium Chloride Carbon Dioxide Anion Gap BUN Creatinine Estimated GFR POC Glucose 152 H Random Glucose Calcium Phosphorus Magnesium Tacrolimus 12.6 9.0 04/01/18 04/01/18 04/02/18 17:45 21:42 04:55 WBC RBC Hgb Hct MCV MCH MCHC RDW Plt Count MPV Neut % (Auto) Lymph % (Auto) [place] % (Auto) Eos % (Auto) Baso % (Auto) Neut # (Auto) Lymph # (Auto) [place] # (Auto) Eos # (Auto) Baso # (Auto) WBC Differential Differential Comment Sodium 135 L Potassium 4.4 Chloride 97 L Carbon Dioxide 29.4 Anion Gap 9 BUN 24 H Creatinine 1.06 H Estimated GFR 53 L POC Glucose 106 177 H Random Glucose 189 H Calcium 9.4 Phosphorus 1.9 L Magnesium 1.7 Tacrolimus 04/02/18 04/02/18 04/02/18 04:55 04:55 08:12 WBC 8.8 RBC 3.31 L Hgb 9.4 L Hct 29.7 L MCV 89.9 MCH 28.5 MCHC 31.7 L RDW 16.2 Plt Count 606 H D MPV 9.4 Neut % (Auto) 72.8 H Lymph % (Auto) 13.4 [place] % (Auto) 10.3 H Eos % (Auto) 3.0 Baso % (Auto) 0.5 Neut # (Auto) 6.4 Lymph # (Auto) 1.2 [place] # (Auto) 0.9 Eos # (Auto) 0.3 Baso # (Auto) 0.0 WBC Differential . Differential Comment Auto diff final Sodium Potassium Chloride Carbon Dioxide Anion Gap BUN Creatinine Estimated GFR POC Glucose 207 H Random Glucose Calcium Phosphorus Magnesium Tacrolimus Cancelled Microbiology 03/27/18 20:00 Blood - Line Aerobic Blood Culture - Final No growth in 5 days 03/27/18 20:00 Blood - Line Anaerobic Blood Culture - Final No growth in 5 days 03/27/18 20:10 Blood - Line Aerobic Blood Culture - Final No growth in 5 days 03/27/18 20:10 Blood - Line Anaerobic Blood Culture - Final No growth in 5 days Assessment and Plan - Assessment (1) Fever Code(s): R50.9 - Fever, unspecified Status: Acute (2) Renal transplant recipient Code(s): Z94.0 - Kidney transplant status Status: Acute (3) DM (diabetes mellitus) Code(s): E11.9 - Type 2 diabetes mellitus without complications Status: Acute (4) Abdominal pain Code(s): R10.9 - Unspecified abdominal pain Status: Acute - Plan 57 yof with complex medical/surgical history s/p LURKT in [place] in 06/2017. Admitted with left flank pain and FUO. No obvious source of infection yet identified. Kidney function improved from admit. Blood sugars better controlled. UOP okay. Abd pain seems improved from admit, although some acute on chronic pain still present. On diabetic clears. Await prograf level. Thrush noted. Nystatin S&S started. Platelets trending up. Patient worried that it will climb above a million again. Will consult hematology-onc (? resume anagrelide). Will continue to follow. (1) Fever Qualifiers: Fever type: unspecified Qualified Code(s): R50.9 - Fever, unspecified
--- NOTE | 2018-04-02 14:02 | P.PNNP ---
Subjective Interval history: Patient treated for oral thrush Mild abdominal pain on left side Physical Exam Vital signs: Vital Signs 04/01/18 14:59 04/01/18 15:00 04/01/18 17:45 Temperature 98.6 F Pulse Rate 69 Respiratory Rate 18 20 18 Blood Pressure 137/86 Pulse Oximetry 04/01/18 19:00 04/01/18 20:00 04/01/18 23:00 Temperature 97.9 F 98.4 F Pulse Rate 61 63 Respiratory Rate 18 18 20 Blood Pressure 140/91 H 136/88 Pulse Oximetry 04/02/18 03:00 04/02/18 03:35 04/02/18 07:00 Temperature 98.2 F 98.7 F Pulse Rate 69 69 Respiratory Rate 18 18 20 Blood Pressure 164/94 H 153/95 H Pulse Oximetry 98 04/02/18 11:00 04/02/18 13:42 Temperature 98.6 F Pulse Rate 69 Respiratory Rate 20 16 Blood Pressure 122/82 Pulse Oximetry 94 L Intake & Output 04/01/18 04/02/18 04/02/18 18:59 06:59 18:59 Intake Total 3314.6937 / 3314.6937 1903 / 1903 Output Total 1800 / 1800 2100 / 2100 Balance 1514.6937 / 1514.6937 -197 / -197 Weight 62 kg Intake: IV 2864.6937 / 2864.6937 1653 / 1653 D5W/Normal Saline Inj 1,000 ML 200 / 200 @ 200 mls/hr IV.CONT .Q5H [facility] Rx#:[id number] Intralipid 20% Inj 250 ML @ 31. 200 / 200 25 mls/hr IV.SIG Q24H [facility] Rx#: [id number] Magnesium Sulfate 1 gm/D5W 100 200 / 200 ml Premix 100 ML @ 100 mls/hr IV.SIG Q1H [facility] Rx#:[id number] Zosyn 4.5 GM Premix 4.5 gm In 100 / 100 100 ml @ 200 mls/hr IV.SIG Q6H [facility] Rx#:[id number] KCl 20 mEq Premix Inj 20 meq In 100 / 100 100 ml @ 100 mls/hr IV.SIG Q1H [facility]N Rx#:[id number] Potassium Phosphate Inj 15 MMOL 155 / 155 In NS Inj 150 ML @ 38.75 mls/ hr IV.SIG ONCE ONE Rx#:[id number] Sodium Chloride 23.4% Inj 11 / 1453 / 1453 MEQ Sodium Acetate Inj 59 MEQ KCl Inj 40 MEQ Magnesium Chloride Inj 10 MEQ Calcium Chloride Inj 9 MEQ MVI-12 Inj 10 ML Folvite Inj 1 MG NovoLIN R Inj 30 UNITS In TPN Fluid 2 Liter 2,000 ML @ 65.009 mls/hr IV.SIG Q24H [facility] Rx#:[id number] Oral 450 / 450 250 / 250 Output: Urine 1800 / 1800 2100 / 2100 Other: # Voids 3 4 Date of Last Bowel Movement 03/31/18 03/31/18 03/31/18 Narrative: GENERAL: Well-nourished, well-developed patient. SKIN: Warm and dry. HEAD: Normocephalic. EYES: No scleral icterus. No injection or drainage. NECK: Supple, trachea midline. No JVD or lymphadenopathy. CARDIOVASCULAR: Regular rate and rhythm without murmurs, gallops, or rubs. Ward catheter on the right internal jugular. RESPIRATORY: Breath sounds equal bilaterally. No accessory muscle use. GASTROINTESTINAL: Abdomen soft, mildly tender, nondistended. Multiple surgical scar there is a right lower abdominal scar, all are healed. EXTREMITIES: No edema NEUROLOGICAL: Awake, alert, and oriented x 3. Non-focal. Assessment and Plan - Assessment (1) Acute renal failure Code(s): N17.9 - Acute kidney failure, unspecified Status: Acute (2) Thrombocytopenia Code(s): D69.6 - Thrombocytopenia, unspecified Status: Acute (3) Fever Code(s): R50.9 - Fever, unspecified Status: Acute Qualifiers: Fever type: unspecified Qualified Code(s): R50.9 - Fever, unspecified (4) Renal transplant recipient Code(s): Z94.0 - Kidney transplant status Status: Acute (5) On total parenteral nutrition (TPN) Code(s): Z78.9 - Other specified health status Status: Acute (6) DM (diabetes mellitus) Code(s): E11.9 - Type 2 diabetes mellitus without complications Status: Acute (7) Abdominal pain Code(s): R10.9 - Unspecified abdominal pain Status: Acute - Plan Patient has acute renal failure with baseline creatinine around 0.9 currently at 1.2, Phosphorus and magnesium were replaced Doing better creatinine fluctuates due to fluid shift Thrush nystatin added Thrombocytosis platelets are climbing up hematology consulted Blood glucose fluctuate Monitor tacrolimus level Follow BMP Avoid nephrotoxins
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
[2018-04-02] MEDS: [UNRECOGNIZED DRUG - OTHER] IV.SIG SCH ×9 (21:19)
[2018-04-03] MEDS: Morphine Inj 4 MG/ML Vial IV.PUSH PRN ×9 (02:34→23:40)
[2018-04-03] MEDS: Sod Chloride 0.9% Inj 1,000 ML IV.CONT SCH ×6 (03:21→20:27)
[2018-04-03] MEDS: Dextrose 5%/NaCl 0.9% Inj 1,000 ML IV.CONT SCH ×5 (03:22→20:29)
[2018-04-03] MEDS: Chlorhexidine Gluconate 2% 1 Pack (2 Cloths) TOPICAL SCH (05:42)
--- NOTE | 2018-04-03 07:54 | P.PNIM ---
Subjective Interval history: f/u; abdominal pain in no acute distress. had rectal bleed last evening. but denies worsening abdominal pain or emesis. no rectal bleed over night. complaining of generalized itching. d/w the RN. Physical Exam Vital signs: Vital Signs 04/02/18 11:00 04/02/18 13:42 04/02/18 15:00 Temperature 98.6 F 98.2 F Pulse Rate 69 71 Respiratory Rate 20 16 16 Blood Pressure 122/82 128/64 Pulse Oximetry 94 L 99 04/02/18 15:41 04/02/18 16:48 04/02/18 16:51 Temperature Pulse Rate 68 71 Respiratory Rate 16 Blood Pressure Pulse Oximetry 04/02/18 17:51 04/02/18 19:00 04/02/18 20:00 Temperature 98.1 F Pulse Rate 71 73 70 Respiratory Rate 16 Blood Pressure 131/70 Pulse Oximetry 99 04/02/18 21:00 04/02/18 22:00 04/02/18 23:00 Temperature 98.2 F Pulse Rate 68 66 71 Respiratory Rate 18 Blood Pressure 137/76 Pulse Oximetry 99 04/03/18 00:00 04/03/18 01:00 04/03/18 02:00 Temperature Pulse Rate 68 72 66 Respiratory Rate Blood Pressure Pulse Oximetry 04/03/18 03:00 04/03/18 04:00 04/03/18 05:00 Temperature 97.9 F Pulse Rate 67 66 68 Respiratory Rate 16 Blood Pressure 140/75 Pulse Oximetry 98 04/03/18 06:00 04/03/18 07:47 Temperature Pulse Rate 68 Respiratory Rate 16 Blood Pressure Pulse Oximetry Intake & Output 04/02/18 04/03/18 04/03/18 18:59 06:59 18:59 Intake Total 1845 / 1845 780 / 780 Output Total 900 / 900 1800 / 1800 Balance 945 / 945 -1020 / -1020 Weight 60.5 kg Intake: IV 1605 / 1605 300 / 300 D5W/Normal Saline Inj 1,000 ML 800 / 800 @ 200 mls/hr IV.CONT .Q5H RONALD Rx#:[id number] Intralipid 20% Inj 250 ML @ 31. 300 / 300 25 mls/hr IV.SIG Q24H RONALD Rx#: [id number] Potassium Phosphate Inj 15 MMOL 155 / 155 In NS Inj 150 ML @ 38.75 mls/ hr IV.SIG ONCE ONE Rx#:[id number] Sodium Chloride 23.4% Inj 11 650 / 650 MEQ Sodium Acetate Inj 59 MEQ KCl Inj 40 MEQ Magnesium Chloride Inj 10 MEQ Calcium Chloride Inj 9 MEQ MVI-12 Inj 10 ML Folvite Inj 1 MG NovoLIN R Inj 30 UNITS In TPN Fluid 2 Liter 2,000 ML @ 65.009 mls/hr IV.SIG Q24H RONALD Rx#:[id number] Oral 240 / 240 480 / 480 Output: Urine 900 / 900 1800 / 1800 Other: Date of Last Bowel Movement 04/02/18 # Bowel Movements 2 - Constitutional no acute distress - Routine Respiratory Exam Present: CTA bilaterally - Routine Cardiovascular Exam Present: RRR - Routine Abdominal Exam Present: soft, tenderness (mild generalized tenderness.) - Routine Extremities Exam Comments: mild bilateral pedal edema. - Routine Neurological Exam Present: alert, oriented X3 Results - Labs CBC & Chem 7: 04/02/18 04:55 04/02/18 04:55 Laboratory Results - last 24 hr 04/02/18 04/02/18 04/02/18 04:55 08:12 11:00 POC Glucose 207 H Nasal Screen MRSA (PCR) Tacrolimus Cancelled 10.7 04/02/18 04/02/18 04/02/18 12:09 15:02 17:33 POC Glucose 117 H 300 H Nasal Screen MRSA (PCR) Mrsa detected Tacrolimus 04/02/18 20:29 POC Glucose 259 H Nasal Screen MRSA (PCR) Tacrolimus Assessment and Plan - Assessment (1) SIRS (systemic inflammatory response syndrome) Code(s): R65.10 - Systemic inflammatory response syndrome (SIRS) of non- infectious origin without acute organ dysfunction Status: Acute (2) H/O kidney transplant Code(s): Z94.0 - Kidney transplant status Status: Acute (3) Abdominal pain Code(s): R10.9 - Unspecified abdominal pain Status: Acute (4) On total parenteral nutrition (TPN) Code(s): Z78.9 - Other specified health status Status: Acute (5) Renal insufficiency Code(s): N28.9 - Disorder of kidney and ureter, unspecified Status: Acute (6) DM (diabetes mellitus) Code(s): E11.9 - Type 2 diabetes mellitus without complications Status: Acute - Plan Fever, SIRS- fever now has resolved. Chest x-ray was within normal limits, urinalysis showed no infection Blood cultures thus far negative antibiotics discontinued. ID following; previously d/w . rectal bleed will monitor H/H- GI consulted. H/o renal transplant Transplanted in June [address] [facility], Dr. Louis Continue Prograf, adjusted by nephrology Appreciate transplant surgery consult Thrombocytopenia- has resolved and now the platelet count is trending up. Patient has a history of thrombophilia with numbers up to 1.2 million, initially trended downwards- l resumed Anagrelide - but the patient refused. Hematology consult appreciated. Abdominal pain- better. Patient has a history of large areas of bowel resection, multiple surgeries, pancreatectomy and splenectomy She allegedly has 260 cm of small bowel with no colon She has a history of gastroparesis related to adhesions and stenoses in the bowel, she takes TPN for this Dietitian consulted for TPN recs. will gradually advance the diet. Type 2 diabetes- now blood sugar has much improved. Patient's currently hyperglycemic related to infection and initially poorly controlled. initially started on insulin drip which was later on stopped; - now on regular insulin with TPN- along with accu-check with SSI. Hypophosphatemia; replaced- will monitor. oral thrush; started on Nystatin DVT Prophylaxis Lovenox Discharge Planning: possible discharge within the next 24-48 hrs if stable and tolerating the diet. pending GI/ Hematology recommendations.
[2018-04-03] MEDS: predniSONE 10 MG Tablet PO SCH (08:40)
[2018-04-03] MEDS: Lipase/Protease/Amylase 24/76/120 DR Capsule PO SCH ×3 (08:40→17:27)
[2018-04-03] MEDS: Heparin Central Flush 100 UNIT/ML 5 ML Vial IV.FLUSH SCH (08:41)
[2018-04-03] MEDS: Calcium Carbonate 500 MG Tablet PO SCH ×2 (08:41→21:30)
[2018-04-03] MEDS: Nystatin Liq 500,000 UNIT/5 ML UDC SWISH-SWAL SCH ×4 (08:41→21:30)
[2018-04-03] MEDS: Diphenoxylate/Atropine 2.5/0.025 MG Tablet PO SCH ×3 (08:41→17:34)
[2018-04-03] MEDS: Senna/Docusate Sodium 8.6/50 MG Tablet PO SCH ×2 (08:41→21:30)
[2018-04-03] MEDS: Carvedilol 12.5 MG Tablet PO SCH ×2 (08:41→21:30)
[2018-04-03] MEDS: Insulin NovoLIN Regular Correctional Sugar Inj SQ SCH ×4 (09:18→21:36)
--- NOTE | 2018-04-03 09:43 | P.CONGI ---
History of Present Illness Consult date: 04/03/18 Consult reason: Rectal bleeding Chief complaint: fever, renal transplant History of Present Illness: Patient is a 57-year-old female with a past medical history significant for diabetes mellitus, dumping syndrome for which she is on TPN, chronic diarrhea, GERD, splenectomy, gastroparesis, history of DVT on Lovenox subcu, and renal transplant. Patient was initially referred to the emergency room at [facility] by her transplant physician due to fever. Patient's Renal Transplant Took Pl. in June of 2017 in [facility]. Patient spent an extended amount of time hospitalized due to multiple complications including dumping syndrome for which she is presently on TPN. Patient also able to tolerate clear liquid diet. This service has been consulted to evaluate patient 's report of loose maroon colored stool x1 yesterday. Patient reports chronic diarrhea with loose stools that are normally brown in color with no noted blood for 1 year. Patient reports last EGD and colonoscopy performed in October 2017 at [facility] in [facility]. Per patient EGD findings revealed esophagitis Germania for which she was treated with Diflucan and is presently being treated with nystatin swish and swallow for thrush. Patient denies any difficulty swallowing, denies coughing or choking. She denies vomiting endorses history of GERD for which she had been taking Dexilant. Patient states that she has been off Dexilant for 5 months and is presently on pantoprazole which is somewhat can controlling acid reflux symptoms. She reports intermittent nausea that is relieved by Zofran. Patient states she has chronic epigastric pain that radiates to the left upper quadrant she describes same as sharp and throbbing. Colonoscopy done in October 2017 revealed benign polyps per patient. Patient denies any known family history for gastrointestinal disorders. She does state that she has a niece that has IBS. Patient surgical history is significant for a pancreatectomy in 2010, revision of anastomosis from liver to intestines January 2018. Patient states she has 200 cm left of small bowel. Patient underwent renal transplant in [place] in June 2017. Lovenox on hold for now. 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 Patient denies smoking or use of tobacco as well as any use of alcohol. Will obtain medical records from [facility] in regards to patient's EGD and colonoscopy done in October 2017. Patient denies any further bleeding noted. No BM yet this morning. <Yuliana Christine - Last Filed: 04/03/18 09:43> Review of Systems All other systems reviewed negative except as stated in HPI <Yuliana Christine - Last Filed: 04/03/18 09:43> PMFSH - History History Provided By: Patient - Medical History Medical History: Medical History (Last Reviewed 04/01/18 @ 13:27 by Dre Villanueva) Diabetes Dumping syndrome Fracture, femur Fracture, femur GERD (gastroesophageal reflux disease) Gastroparesis History of hysterectomy Kidney failure Liver function failure On total parenteral nutrition (TPN) - Surgical History Surgical History: Surgical History (Last Reviewed 04/01/18 @ 13:27 by Dre Villanueva) H/O splenectomy History of colectomy History of intestinal surgery History of oophorectomy History of pancreatectomy Kidney transplant recipient Surgical procedure on lower extremity within past 6 months - Tobacco History Second Hand Smoke Exposure: No Tobacco Use In Past 30 Days: No Smoking Status: Former smoker Tobacco Type: Cigarettes Smoking End Date: 2008 (smoke / PPD off and on for 10 years before quitting in 2008) - Alcohol History How Often Do You Have a Drink Containing Alcohol: Never - Substance Use History Substance History: No History of Abuse - Travel History History of Recent Travel: Yes (was in [place] then [place]) Recent Travel in the [facility] Within the Last 8 Weeks: Yes Recent Travel Out of the Country Within the Last 8 Weeks: No - Immunization History Tetanus Immunization: Unsure Hx Influenza Vaccine This Season: Yes <Yuliana Christine - Last Filed: 04/03/18 09:43> - Medical History Medical History: Medical History (Last Reviewed 04/01/18 @ 13:27 by Dre Villanueva) Diabetes Dumping syndrome Fracture, femur Fracture, femur GERD (gastroesophageal reflux disease) Gastroparesis History of hysterectomy Kidney failure Liver function failure On total parenteral nutrition (TPN) - Surgical History Surgical History: Surgical History (Last Reviewed 04/01/18 @ 13:27 by Dre Villanueva) H/O splenectomy History of colectomy History of intestinal surgery History of oophorectomy History of pancreatectomy Kidney transplant recipient Surgical procedure on lower extremity within past 6 months <Miller Pollard - Last Filed: 04/03/18 11:16> Medications and Allergies Active Medications: Active Medications Acetaminophen (Tylenol) 650 mg PO Q4H PRN PRN Reason: Temp > 100.4 Al Hydroxide/Mg Hydroxide (Milk Of Magnmilly Liq) 30 ml PO Q12H PRN PRN Reason: Mild Constipation Lipase/Protease/Amylase (Donovan Weinberg 24/76/120) 1 cap PO TIDAC [facility] Last Admin: 04/03/18 08:40 Dose: 1 cap Anagrelide HCl (Agrylin) 0.5 mg PO Q12H [facility] Last Admin: 04/02/18 23:22 Dose: Not Given Atorvastatin Calcium (Lipitor) 20 mg PO DAILY [facility] Last Admin: 04/03/18 08:40 Dose: 20 mg Azathioprine (Imuran) 100 mg PO DAILY [facility] Last Admin: 03/29/18 10:16 Dose: Not Given Benzocaine/Menthol (Chloraseptic Sore Throat Lozenge) 1 lozenge BUCCAL Q4H PRN PRN Reason: sore throat Bisacodyl (Dulcolax Supp) 10 mg RECTAL DAILY PRN PRN Reason: SEVERE CONSITIPATION Calcium Carbonate (Oscal) 500 mg PO BID [facility] Last Admin: 04/03/18 08:41 Dose: 500 mg Calcium Carbonate (Tums Chew) 500 mg CHEW Q2H PRN PRN Reason: DYSPEPSIA Carvedilol (Coreg) 12.5 mg PO BID [facility] Last Admin: 04/03/18 08:41 Dose: 12.5 mg Chlorhexidine Gluconate (Chlorhexidine 2% Cloth) 3 pack TOPICAL DAILY@0400 [facility] Stop: 04/05/18 03:59 Last Admin: 04/03/18 05:42 Dose: Not Given Chlorhexidine Gluconate (Chlorhexidine 2% Cloth) 3 pack TOPICAL DAILY@0400 PRN PRN Reason: Extra cloth needed Stop: 04/05/18 03:59 Clonidine HCl (Catapres) 0.1 mg PO Q6H PRN PRN Reason: SBP>160, DBP>90 Last Admin: 03/30/18 16:24 Dose: 0.1 mg Dextrose (D50w Vial) 50 ml IV.PUSH UNSCH PRN PRN Reason: PER HYPOGLYCEMIA PROTOCOL Diphenoxylate HCl/Atropine (Lomotil) 1 tab PO TID [facility] Last Admin: 04/03/18 08:41 Dose: Not Given Enoxaparin Sodium (Lovenox Inj) 40 mg SQ DAILY [facility] Last Admin: 04/02/18 10:25 Dose: 40 mg Glucagon (Glucagon Inj) 1 mg OTHER PRN PRN PRN Reason: for Hypoglycemia Protocol Heparin Sodium (Porcine) (Heparin Central Flush) 0 unit IV.FLUSH PRN PRN PRN Reason: Flush each lumen Last Admin: 03/28/18 05:44 Dose: 250 unit Heparin Sodium (Porcine) (Heparin Central Flush) 0 unit IV.FLUSH DAILY [facility] Last Admin: 04/03/18 08:41 Dose: 500 unit Hydroxyzine HCl (Vistaril Inj) 50 mg IM Q6H PRN PRN Reason: pruritis Last Admin: 04/03/18 03:37 Dose: 50 mg Fat Emulsion Intravenous (Intralipid 20% Inj) 250 mls @ 31.25 mls/hr IV.SIG Q24H [facility] Last Infusion: 04/03/18 05:42 Dose: Infused Dextrose/Sodium Chloride (D5w/Normal Saline Inj) 1,000 mls @ 200 mls/hr IV.CONT .Q5H [facility] Last Admin: 04/03/18 05:42 Dose: Not Given Sodium Chloride (Ns Inj) 1,000 mls @ 250 mls/hr IV.CONT .Q4H [facility] Last Admin: 04/03/18 07:27 Dose: Not Given Potassium Chloride (Kcl 40 Meq Premix Inj) 40 meq in 100 mls @ 100 mls/hr IV.SIG Q1H PRN PRN Reason: for Initial K+ ONLY < 3.5 Potassium Chloride (Kcl 40 Meq Premix Inj) 40 meq in 100 mls @ 50 mls/hr IV.SIG Q2H PRN PRN Reason: for Subsequent K+ < 3.5 Potassium Chloride (Kcl 20 Meq Premix Inj) 20 meq in 100 mls @ 100 mls/hr IV.SIG Q1H PRN PRN Reason: for K+ 4.5 to 5 Last Infusion: 04/01/18 14:57 Dose: Infused Potassium Chloride (Kcl 20 Meq Premix Inj) 20 meq in 100 mls @ 50 mls/hr IV.SIG Q2H PRN PRN Reason: for Initial K+ ONLY < 3.5 Potassium Chloride (Kcl 20 Meq Premix Inj) 20 meq in 100 mls @ 50 mls/hr IV.SIG Q2H PRN PRN Reason: for Subsequent K+ < 3.5 Potassium Chloride (Kcl 20 Meq Premix Inj) 20 meq in 100 mls @ 50 mls/hr IV.SIG Q2H PRN PRN Reason: for K+ 3.5 to 4.4 Potassium Chloride (Kcl 20 Meq Premix Inj) 20 meq in 100 mls @ 50 mls/hr IV.SIG Q2H PRN PRN Reason: for K+ 4.5 to 5 Sodium Phosphate 15 mmol/ (Sodium Chloride) 105 mls @ 25 mls/hr IV.SIG UNSCH PRN PRN Reason: for Phosphate Level < 1.0 Potassium Chloride (Kcl 20 Meq Premix Inj) 20 meq in 100 mls @ 100 mls/hr IV.SIG Q1H PRN PRN Reason: for K+ 3.5 to 4.4 Sodium Chloride 11 meq/ Sodium Acetate 59 meq/ Potassium Chloride 40 meq/ Magnesium Chloride 10 meq/ Calcium Chloride 9 meq/ Multivitamins 10 ml/ Folic Acid 1 mg/Insulin Human Regular 30 units / Amino Acids/Electrolytes/Dextrose 2, 059.6937 mls @ 65.009 mls/hr IV.SIG Q24H [facility] Last Admin: 04/02/18 21:19 Dose: 65.01 mls/hr Insulin Human Regular (Novolin R Correctional Sugar Inj) 0 units SQ ACHS [facility]; Protocol Last Admin: 04/03/18 09:18 Dose: 5 units Lactulose (Lactulose Liq) 30 ml PO DAILY PRN PRN Reason: SEVERE CONSITIPATION Morphine Sulfate (Morphine Inj) 4 mg IV.PUSH Q2H PRN PRN Reason: PAIN SCALE 6 TO 10 Last Admin: 04/03/18 07:38 Dose: 4 mg Nystatin (Mycostatin Liq) 5 ml SWISH-SWAL QID [facility] Last Admin: 04/03/18 08:41 Dose: 5 ml Ondansetron HCl (Zofran Inj) 4 mg IV.PUSH Q6H PRN PRN Reason: NAUSEA OR VOMITING Last Admin: 04/03/18 05:05 Dose: 4 mg Pantoprazole Sodium (Protonix) 40 mg PO BID [facility] Last Admin: 04/03/18 08:41 Dose: 40 mg Pt Own - Belatacept 0 each IV.PUSH Q30D [facility] Prednisone (Deltasone) 10 mg PO DAILY [facility] Last Admin: 04/03/18 08:40 Dose: 10 mg Promethazine HCl (Phenergan) 25 mg PO Q4H PRN PRN Reason: NAUSEA OR VOMITING Last Admin: 04/03/18 02:34 Dose: 25 mg Senna/Docusate Sodium (Saray-Colace) 1 tab PO BID [facility] Last Admin: 04/03/18 08:41 Dose: 1 tab Sennosides (Senokot) 17.2 mg PO Q12H PRN PRN Reason: Moderate Constipation Sodium Bicarbonate (Sodium Bicarbonate 8.4% Inj) 50 meq IV.PUSH UNSCH PRN PRN Reason: for pH 6.9 to 7.0 Sodium Bicarbonate (Sodium Bicarbonate 8.4% Inj) 100 meq IV.PUSH UNSCH PRN PRN Reason: for pH less than 6.9 Sodium Chloride (Ns Flush) 0 ml IV.FLUSH DAILY [facility] Last Admin: 04/03/18 08:41 Dose: 10 ml Sodium Chloride (Ns Flush) 0 ml IV.FLUSH PRN PRN PRN Reason: FLUSH AFTER USING IV ACCESS Last Admin: 03/28/18 05:45 Dose: 10 ml Tacrolimus (Prograf) 4 mg PO Q12H [facility] Last Admin: 04/02/18 23:18 Dose: 4 mg <Yuliana Christine - Last Filed: 04/03/18 09:43> Active Medications: Active Medications Acetaminophen (Tylenol) 650 mg PO Q4H PRN PRN Reason: Temp > 100.4 Al Hydroxide/Mg Hydroxide (Milk Of Jorge A Liq) 30 ml PO Q12H PRN PRN Reason: Mild Constipation Lipase/Protease/Amylase (Donovan Weinberg 24/76/120) 1 cap PO TIDAC [facility] Last Admin: 04/03/18 08:40 Dose: 1 cap Anagrelide HCl (Agrylin) 0.5 mg PO Q12H [facility] Last Admin: 04/03/18 10:48 Dose: Not Given Atorvastatin Calcium (Lipitor) 20 mg PO DAILY [facility] Last Admin: 04/03/18 08:40 Dose: 20 mg Azathioprine (Imuran) 100 mg PO DAILY [facility] Last Admin: 03/29/18 10:16 Dose: Not Given Benzocaine/Menthol (Chloraseptic Sore Throat Lozenge) 1 lozenge BUCCAL Q4H PRN PRN Reason: sore throat Bisacodyl (Dulcolax Supp) 10 mg RECTAL DAILY PRN PRN Reason: SEVERE CONSITIPATION Calcium Carbonate (Oscal) 500 mg PO BID [facility] Last Admin: 04/03/18 08:41 Dose: 500 mg Calcium Carbonate (Tums Chew) 500 mg CHEW Q2H PRN PRN Reason: DYSPEPSIA Carvedilol (Coreg) 12.5 mg PO BID [facility] Last Admin: 04/03/18 08:41 Dose: 12.5 mg Chlorhexidine Gluconate (Chlorhexidine 2% Cloth) 3 pack TOPICAL DAILY@0400 [facility] Stop: 04/05/18 03:59 Last Admin: 04/03/18 05:42 Dose: Not Given Chlorhexidine Gluconate (Chlorhexidine 2% Cloth) 3 pack TOPICAL DAILY@0400 PRN PRN Reason: Extra cloth needed Stop: 04/05/18 03:59 Clonidine HCl (Catapres) 0.1 mg PO Q6H PRN PRN Reason: SBP>160, DBP>90 Last Admin: 03/30/18 16:24 Dose: 0.1 mg Dextrose (D50w Vial) 50 ml IV.PUSH UNSCH PRN PRN Reason: PER HYPOGLYCEMIA PROTOCOL Diphenoxylate HCl/Atropine (Lomotil) 1 tab PO TID [facility] Last Admin: 04/03/18 08:41 Dose: Not Given Enoxaparin Sodium (Lovenox Inj) 40 mg SQ DAILY [facility] Last Admin: 04/02/18 10:25 Dose: 40 mg Glucagon (Glucagon Inj) 1 mg OTHER PRN PRN PRN Reason: for Hypoglycemia Protocol Heparin Sodium (Porcine) (Heparin Central Flush) 0 unit IV.FLUSH PRN PRN PRN Reason: Flush each lumen Last Admin: 03/28/18 05:44 Dose: 250 unit Heparin Sodium (Porcine) (Heparin Central Flush) 0 unit IV.FLUSH DAILY [facility] Last Admin: 04/03/18 08:41 Dose: 500 unit Hydroxyzine HCl (Vistaril Inj) 50 mg IM Q6H PRN PRN Reason: pruritis Last Admin: 04/03/18 11:02 Dose: 50 mg Fat Emulsion Intravenous (Intralipid 20% Inj) 250 mls @ 31.25 mls/hr IV.SIG Q24H [facility] Last Infusion: 04/03/18 05:42 Dose: Infused Dextrose/Sodium Chloride (D5w/Normal Saline Inj) 1,000 mls @ 200 mls/hr IV.CONT .Q5H [facility] Last Admin: 04/03/18 10:48 Dose: Not Given Sodium Chloride (Ns Inj) 1,000 mls @ 250 mls/hr IV.CONT .Q4H [facility] Last Admin: 04/03/18 10:48 Dose: Not Given Potassium Chloride (Kcl 40 Meq Premix Inj) 40 meq in 100 mls @ 100 mls/hr IV.SIG Q1H PRN PRN Reason: for Initial K+ ONLY < 3.5 Potassium Chloride (Kcl 40 Meq Premix Inj) 40 meq in 100 mls @ 50 mls/hr IV.SIG Q2H PRN PRN Reason: for Subsequent K+ < 3.5 Potassium Chloride (Kcl 20 Meq Premix Inj) 20 meq in 100 mls @ 100 mls/hr IV.SIG Q1H PRN PRN Reason: for K+ 4.5 to 5 Last Infusion: 04/01/18 14:57 Dose: Infused Potassium Chloride (Kcl 20 Meq Premix Inj) 20 meq in 100 mls @ 50 mls/hr IV.SIG Q2H PRN PRN Reason: for Initial K+ ONLY < 3.5 Potassium Chloride (Kcl 20 Meq Premix Inj) 20 meq in 100 mls @ 50 mls/hr IV.SIG Q2H PRN PRN Reason: for Subsequent K+ < 3.5 Potassium Chloride (Kcl 20 Meq Premix Inj) 20 meq in 100 mls @ 50 mls/hr IV.SIG Q2H PRN PRN Reason: for K+ 3.5 to 4.4 Potassium Chloride (Kcl 20 Meq Premix Inj) 20 meq in 100 mls @ 50 mls/hr IV.SIG Q2H PRN PRN Reason: for K+ 4.5 to 5 Sodium Phosphate 15 mmol/ (Sodium Chloride) 105 mls @ 25 mls/hr IV.SIG UNSCH PRN PRN Reason: for Phosphate Level < 1.0 Potassium Chloride (Kcl 20 Meq Premix Inj) 20 meq in 100 mls @ 100 mls/hr IV.SIG Q1H PRN PRN Reason: for K+ 3.5 to 4.4 Sodium Chloride 11 meq/ Sodium Acetate 59 meq/ Potassium Chloride 40 meq/ Magnesium Chloride 10 meq/ Calcium Chloride 9 meq/ Multivitamins 10 ml/ Folic Acid 1 mg/Insulin Human Regular 30 units / Amino Acids/Electrolytes/Dextrose 2, 059.6937 mls @ 65.009 mls/hr IV.SIG Q24H [facility] Last Admin: 04/02/18 21:19 Dose: 65.01 mls/hr Insulin Human Regular (Novolin R Correctional Sugar Inj) 0 units SQ ACHS [facility]; Protocol Last Admin: 04/03/18 09:18 Dose: 5 units Lactulose (Lactulose Liq) 30 ml PO DAILY PRN PRN Reason: SEVERE CONSITIPATION Morphine Sulfate (Morphine Inj) 4 mg IV.PUSH Q2H PRN PRN Reason: PAIN SCALE 6 TO 10 Last Admin: 04/03/18 11:02 Dose: 4 mg Nystatin (Mycostatin Liq) 5 ml SWISH-SWAL QID [facility] Last Admin: 04/03/18 08:41 Dose: 5 ml Ondansetron HCl (Zofran Inj) 4 mg IV.PUSH Q6H PRN PRN Reason: NAUSEA OR VOMITING Last Admin: 04/03/18 10:39 Dose: 4 mg Pantoprazole Sodium (Protonix) 40 mg PO BID [facility] Last Admin: 04/03/18 08:41 Dose: 40 mg Pt Own - Belatacept 0 each IV.PUSH Q30D [facility] Prednisone (Deltasone) 10 mg PO DAILY [facility] Last Admin: 04/03/18 08:40 Dose: 10 mg Promethazine HCl (Phenergan) 25 mg PO Q4H PRN PRN Reason: NAUSEA OR VOMITING Last Admin: 04/03/18 02:34 Dose: 25 mg Senna/Docusate Sodium (Saray-Colace) 1 tab PO BID [facility] Last Admin: 04/03/18 08:41 Dose: 1 tab Sennosides (Senokot) 17.2 mg PO Q12H PRN PRN Reason: Moderate Constipation Sodium Bicarbonate (Sodium Bicarbonate 8.4% Inj) 50 meq IV.PUSH UNSCH PRN PRN Reason: for pH 6.9 to 7.0 Sodium Bicarbonate (Sodium Bicarbonate 8.4% Inj) 100 meq IV.PUSH UNSCH PRN PRN Reason: for pH less than 6.9 Sodium Chloride (Ns Flush) 0 ml IV.FLUSH DAILY [facility] Last Admin: 04/03/18 08:41 Dose: 10 ml Sodium Chloride (Ns Flush) 0 ml IV.FLUSH PRN PRN PRN Reason: FLUSH AFTER USING IV ACCESS Last Admin: 03/28/18 05:45 Dose: 10 ml Tacrolimus (Prograf) 4 mg PO Q12H [facility] Last Admin: 04/02/18 23:18 Dose: 4 mg <Miller Pollard - Last Filed: 04/03/18 11:16> Allergies Allergy/AdvReac Type Severity Reaction Status Date / Time metronidazole [From Flagyl] Allergy Mild Hives Verified 03/27/18 18:27 oxycodone Allergy Mild Redness of Verified 03/27/18 18:27 Skin oxytetracycline Allergy Mild Hives Verified 03/27/18 18:27 [From Terramycin] Home Medications Medication Instructions Recorded Confirmed Type Phenergan 25 mg PO Q6-8H PRN 03/27/18 03/27/18 History acetaminophen 650 mg PO Q4H PRN 03/27/18 03/27/18 History anagrelide 0.5 mg PO Q12H 03/27/18 03/27/18 History atorvastatin 20 mg PO DAILY 03/27/18 03/27/18 History azathioprine [Imuran] 100 mg PO DAILY 03/27/18 03/27/18 History belatacept 10 mg/kg IV QMONTH 03/27/18 03/27/18 History calcium carbonate 1 tab PO BID 03/27/18 03/27/18 History carvedilol 12.5 mg PO BID 03/27/18 03/27/18 History diphenoxylate-atropine [Lomotil] 1 tab PO TID 03/27/18 03/27/18 History enoxaparin 40 mg SUBCUT DAILY 03/27/18 03/27/18 History ergocalciferol (vitamin D2) 50,000 unit PO 3XW 03/27/18 03/27/18 History hydromorphone 2 mg PO Q6H PRN 03/27/18 03/27/18 History insulin glargine 12 unit SUBCUT QNOON 03/27/18 03/27/18 History insulin lispro 1 sliding scale dose SUBCUT UD 03/27/18 03/27/18 History [id number] [Creon] 1 cap PO TIDAC 03/27/18 03/27/18 History ondansetron 4 mg PO Q8H PRN 03/27/18 03/27/18 History pantoprazole 40 mg PO BID 03/27/18 03/27/18 History prednisone 10 mg PO DAILY 03/27/18 03/27/18 History prochlorperazine maleate 10 mg PO Q6-8H PRN 03/27/18 03/27/18 History [Compazine] tacrolimus 0.5 mg PO DAILY 03/27/18 03/27/18 History tacrolimus [Prograf] 4 mg PO Q12H 03/27/18 03/27/18 History Exam Vital signs: Vital Signs 04/02/18 11:00 04/02/18 13:42 04/02/18 15:00 Temperature 98.6 F 98.2 F Pulse Rate 69 71 Respiratory Rate 20 16 16 Blood Pressure 122/82 128/64 Pulse Oximetry 94 L 99 04/02/18 15:41 04/02/18 16:48 04/02/18 16:51 Temperature Pulse Rate 68 71 Respiratory Rate 16 Blood Pressure Pulse Oximetry 04/02/18 17:51 04/02/18 19:00 04/02/18 20:00 Temperature 98.1 F Pulse Rate 71 73 70 Respiratory Rate 16 Blood Pressure 131/70 Pulse Oximetry 99 04/02/18 21:00 04/02/18 22:00 04/02/18 23:00 Temperature 98.2 F Pulse Rate 68 66 71 Respiratory Rate 18 Blood Pressure 137/76 Pulse Oximetry 99 04/03/18 00:00 04/03/18 01:00 04/03/18 02:00 Temperature Pulse Rate 68 72 66 Respiratory Rate Blood Pressure Pulse Oximetry 04/03/18 03:00 04/03/18 04:00 04/03/18 05:00 Temperature 97.9 F Pulse Rate 67 66 68 Respiratory Rate 16 Blood Pressure 140/75 Pulse Oximetry 98 04/03/18 06:00 04/03/18 07:00 04/03/18 07:47 Temperature 97.9 F Pulse Rate 68 72 Respiratory Rate 18 16 Blood Pressure 115/80 Pulse Oximetry 98 04/03/18 08:00 04/03/18 09:00 Temperature Pulse Rate 75 77 Respiratory Rate Blood Pressure Pulse Oximetry Intake & Output 04/02/18 04/03/18 04/03/18 18:59 06:59 18:59 Intake Total 1845 / 1845 780 / 780 Output Total 900 / 900 1800 / 1800 Balance 945 / 945 -1020 / -1020 Weight 60.5 kg Intake: IV 1605 / 1605 300 / 300 D5W/Normal Saline Inj 1,000 ML 800 / 800 @ 200 mls/hr IV.CONT .Q5H [facility] Rx#:[id number] Intralipid 20% Inj 250 ML @ 31. 300 / 300 25 mls/hr IV.SIG Q24H [facility] Rx#: [id number] Potassium Phosphate Inj 15 MMOL 155 / 155 In NS Inj 150 ML @ 38.75 mls/ hr IV.SIG ONCE ONE Rx#:[id number] Sodium Chloride 23.4% Inj 11 650 / 650 MEQ Sodium Acetate Inj 59 MEQ KCl Inj 40 MEQ Magnesium Chloride Inj 10 MEQ Calcium Chloride Inj 9 MEQ MVI-12 Inj 10 ML Folvite Inj 1 MG NovoLIN R Inj 30 UNITS In TPN Fluid 2 Liter 2,000 ML @ 65.009 mls/hr IV.SIG Q24H [facility] Rx#:[id number] Oral 240 / 240 480 / 480 Output: Urine 900 / 900 1800 / 1800 Other: Date of Last Bowel Movement 04/02/18 # Bowel Movements 2 - Constitutional no acute distress - Routine HEENT Exam Head: Present: normocephalic - Routine Respiratory Exam Present: CTA bilaterally. Absent: accessory muscle use - Routine Cardiovascular Exam Present: RRR - Routine Abdominal Exam Present: soft, normoactive bowel sounds, surgical scars. Absent: tenderness, distended, guarding, firm - Routine Extremities Exam Present: full ROM, pulses intact. Absent: clubbing, edema - Routine Skin Exam Present: dry, warm - Routine Neurological Exam Present: alert, oriented X3 <Christine,Yuliana - Last Filed: 04/03/18 09:43> Vital signs: Vital Signs 04/02/18 13:42 04/02/18 15:00 04/02/18 15:41 Temperature 98.2 F Pulse Rate 71 68 Respiratory Rate 16 16 Blood Pressure 128/64 Pulse Oximetry 99 04/02/18 16:48 04/02/18 16:51 04/02/18 17:51 Temperature Pulse Rate 71 71 Respiratory Rate 16 Blood Pressure Pulse Oximetry 04/02/18 19:00 04/02/18 20:00 04/02/18 21:00 Temperature 98.1 F Pulse Rate 73 70 68 Respiratory Rate 16 Blood Pressure 131/70 Pulse Oximetry 99 04/02/18 22:00 04/02/18 23:00 04/03/18 00:00 Temperature 98.2 F Pulse Rate 66 71 68 Respiratory Rate 18 Blood Pressure 137/76 Pulse Oximetry 99 04/03/18 01:00 04/03/18 02:00 04/03/18 03:00 Temperature 97.9 F Pulse Rate 72 66 67 Respiratory Rate 16 Blood Pressure 140/75 Pulse Oximetry 98 04/03/18 04:00 04/03/18 05:00 04/03/18 06:00 Temperature Pulse Rate 66 68 68 Respiratory Rate Blood Pressure Pulse Oximetry 04/03/18 07:00 04/03/18 07:47 04/03/18 08:00 Temperature 97.9 F Pulse Rate 72 75 Respiratory Rate 18 16 Blood Pressure 115/80 Pulse Oximetry 98 04/03/18 09:00 04/03/18 10:00 Temperature Pulse Rate 77 78 Respiratory Rate Blood Pressure Pulse Oximetry Intake & Output 04/02/18 04/03/18 04/03/18 18:59 06:59 18:59 Intake Total 1845 / 1845 780 / 780 Output Total 900 / 900 1800 / 1800 Balance 945 / 945 -1020 / -1020 Weight 60.5 kg Intake: IV 1605 / 1605 300 / 300 D5W/Normal Saline Inj 1,000 ML 800 / 800 @ 200 mls/hr IV.CONT .Q5H [facility] Rx#:[id number] Intralipid 20% Inj 250 ML @ 31. 300 / 300 25 mls/hr IV.SIG Q24H [facility] Rx#: [id number] Potassium Phosphate Inj 15 MMOL 155 / 155 In NS Inj 150 ML @ 38.75 mls/ hr IV.SIG ONCE ONE Rx#:[id number] Sodium Chloride 23.4% Inj 11 650 / 650 MEQ Sodium Acetate Inj 59 MEQ KCl Inj 40 MEQ Magnesium Chloride Inj 10 MEQ Calcium Chloride Inj 9 MEQ MVI-12 Inj 10 ML Folvite Inj 1 MG NovoLIN R Inj 30 UNITS In TPN Fluid 2 Liter 2,000 ML @ 65.009 mls/hr IV.SIG Q24H [facility] Rx#:[id number] Oral 240 / 240 480 / 480 Output: Urine 900 / 900 1800 / 1800 Other: Date of Last Bowel Movement 04/02/18 # Bowel Movements 2 <AtulMiller ramirez - Last Filed: 04/03/18 11:16> Results - Labs CBC & Chem 7: 04/02/18 04:55 04/02/18 04:55 Labs: Laboratory Results - last 24 hr 04/02/18 04/02/18 04/02/18 04:55 11:00 12:09 POC Glucose 117 H Nasal Screen MRSA (PCR) Tacrolimus Cancelled 10.7 04/02/18 04/02/18 04/02/18 15:02 17:33 20:29 POC Glucose 300 H 259 H Nasal Screen MRSA (PCR) Mrsa detected Tacrolimus 04/03/18 07:50 POC Glucose 274 H Nasal Screen MRSA (PCR) Tacrolimus <Yuliana Christine - Last Filed: 04/03/18 09:43> - Labs CBC & Chem 7: 04/02/18 04:55 04/02/18 04:55 Labs: Laboratory Results - last 24 hr 04/02/18 04/02/18 04/02/18 11:00 12:09 15:02 POC Glucose 117 H Nasal Screen MRSA (PCR) Mrsa detected Tacrolimus 10.7 04/02/18 04/02/18 04/03/18 17:33 20:29 07:50 POC Glucose 300 H 259 H 274 H Nasal Screen MRSA (PCR) Tacrolimus <AtulBhatt - Last Filed: 04/03/18 11:16> Assessment and Plan - Plan Patient is a 57-year-old female with a past medical history significant for diabetes mellitus, dumping syndrome for which she is on TPN, chronic diarrhea, GERD, splenectomy, gastroparesis, history of DVT on Lovenox subcu, and renal transplant. Patient was initially referred to the emergency room at [facility] by her transplant physician due to fever. Patient's Renal Transplant Took Pl. in June of 2017 in [facility]. Patient spent an extended amount of time hospitalized due to multiple complications including dumping syndrome for which she is presently on TPN. Patient also able to tolerate clear liquid diet. This service has been consulted to evaluate patient 's report of loose maroon colored stool x1 yesterday. Patient reports chronic diarrhea with loose stools that are normally brown in color with no noted blood for 1 year. Patient reports last EGD and colonoscopy performed in October 2017 at [facility] in [facility]. Per patient EGD findings revealed esophagitis [place] for which she was treated with Diflucan and is presently being treated with nystatin swish and swallow for thrush. Patient denies any difficulty swallowing, denies coughing or choking. She denies vomiting endorses history of GERD for which she had been taking Dexilant. Patient states that she has been off Dexilant for 5 months and is presently on pantoprazole which is somewhat can controlling acid reflux symptoms. She reports intermittent nausea that is relieved by Zofran. Patient states she has chronic epigastric pain that radiates to the left upper quadrant she describes same as sharp and throbbing. Colonoscopy done in October 2017 revealed benign polyps per patient. Patient denies any known family history for gastrointestinal disorders. She does state that she has a niece that has IBS. Patient surgical history is significant for a pancreatectomy in 2010, revision of anastomosis from liver to intestines January 2018. Patient states she has 200 cm left of small bowel. Patient underwent renal transplant in [place] in June 2017. Lovenox on hold for now. 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 Patient denies smoking or use of tobacco as well as any use of alcohol. Will obtain medical records from [facility] in regards to patient's EGD and colonoscopy done in October 2017. Patient denies any further bleeding noted. No BM yet this morning. 04/03/18 Rectal Bleeding-Patient endorses one episode of maroon colored loose stool yesterday. 04/02/2018 hemoglobin 9.4 hematocrit 29.7 platelet count 606. Patient denies any further noted bleeding, no BM yet today. Lovenox on hold. Plan: -Maintain on TPN -Clear liquid diet -We will request medical records from [facility] -Continue pantoprazole -Lovenox on hold for now -Monitor labs -Monitor for bleeding -Supportive care -Further recommendations to follow based on findings This patient has been seen by myself and Dr. Pollard and this note is written on his behalf <Yuliana Christine - Last Filed: 04/03/18 09:43> - Plan Seen and examined with JET WIPER, very complicated history. NO active gi bleeding at present. Records from [place] requested. Protonix daily. Endoscopy if active bleeding. Discussed with pt. and nurse at the bedside. Thank you The exam, history, and the medical decision-making described in the above note were completed with the assistance of the mid-level provider. I reviewed and agree with the findings presented. I attest that I had a [id number] encounter with the patient on the same day, and personally performed and documented my assessment and findings in the medical record. <Miller Pollard - Last Filed: 04/03/18 11:16>
--- NOTE | 2018-04-03 10:54 | P.DIET ---
Nutritional Evaluation Type of nutrition evaluation: follow-up Nutrition consult regarding: TPN/PPN, Diet Evaluation [place] [facility] [place] [facility]/o TPN use at home[place] Screening comments[place] 04[place]02 [facility] [place] Pt back on diet, please assist with TPN adjustments Subjective Subjective Comments: Per RD note on 03/30: Pt says she eats very little at home-usually a slice of toast and a protein shake daily. Pt says meats and vegetables "go right through me". Pt declines Beneprotein packets and says she has an aversion to adding powder to drinks. Pt is receptive to drinking Glucerna Shakes and says she has had these in the past. Pt's home TPN runs for 12-hours daily so she can "be up moving around". Objective - Diagnosis Fever, Renal Transplant - Objective Wilmot body weight: 61.4 kg % IBW: 91 Body Weight Used for Calculations: Actual (55.9kg) Energy Needs - Lower Range (kCal/kg): 30 Energy Needs - Upper Range (kCal/kg): 35 Lower Limit kCal/kg (kCals): 1,677 Upper Limit kCal/kg (kCals): 1,957 Lower Limit Protein Factor (Grams per Kg): 1.1 Upper Limit Protein Factor (Grams per Kg): 1.4 Lower Protein Needs (Protein): 62 Upper Protein Needs (Protein): 78 Dietitian Reviewed in Medical Record: Current diet, Curent medications, Intake & Output, Labs, Medical history, TPN/PPN Diet Order: Regular Objective Comments: PMH: DM, Dumping Syndrome, Gastroparesis related to adhesions and stenosis of the bowel-on TPN at home, GERD, chronic diarrhea, h/o bilateral nephrectomy and Right Kidney transplant 06/2017 ; h/o splenectomy, colectomy, oophrectomy, pancreatectomy, liver function failure; intestinal surgery 01/20/18-pt has 260cm of small bowel w/No Colon Assessment Assessment: Pt is at high nutrition risk r/t medical history and need for TPN. Pt is now on a [place] diet and has eaten 50% over the past 24 hours. She is receiving Glucerna Shakes tid for added nutrition. Current TPN, CLINIMIX 5/20 @ 65ml/hr and 20% Lipids 250ml @ 31.25ml/hr daily over 8-hours provides 78g Protein and 1873 kcal. GUR for TPN is 4. Recommend continuing current TPN, as po intake is minimal and pt probably d/c soon where she will continue her home regimen. Will continue to monitor labs/electrolytes, clinical course. Recommendations: 1. Send Glucersalena Bartlettkes TID 2. Continue current TPN as po intake is minimal. CLINIMIX 5/20 @ 65ml/hr and 20 % Lipids 250ml @ 31.25ml/hr daily over 8-hours. Dietitian to Monitor: Lab values, Electrolytes, Renal labs, Liver enzymes, Glucose level, Supplement acceptance, Intake & Output, Diet tolerance, TPN/PPN tolerance, Weight change, PO Intake, Medical course
--- NOTE | 2018-04-03 11:13 | P.PNTS ---
Subjective Interval history: Maroon stool noted yesterday. Physical Exam Vital signs: Vital Signs 04/02/18 13:42 04/02/18 15:00 04/02/18 15:41 Temperature 98.2 F Pulse Rate 71 68 Respiratory Rate 16 16 Blood Pressure 128/64 Pulse Oximetry 99 04/02/18 16:48 04/02/18 16:51 04/02/18 17:51 Temperature Pulse Rate 71 71 Respiratory Rate 16 Blood Pressure Pulse Oximetry 04/02/18 19:00 04/02/18 20:00 04/02/18 21:00 Temperature 98.1 F Pulse Rate 73 70 68 Respiratory Rate 16 Blood Pressure 131/70 Pulse Oximetry 99 04/02/18 22:00 04/02/18 23:00 04/03/18 00:00 Temperature 98.2 F Pulse Rate 66 71 68 Respiratory Rate 18 Blood Pressure 137/76 Pulse Oximetry 99 04/03/18 01:00 04/03/18 02:00 04/03/18 03:00 Temperature 97.9 F Pulse Rate 72 66 67 Respiratory Rate 16 Blood Pressure 140/75 Pulse Oximetry 98 04/03/18 04:00 04/03/18 05:00 04/03/18 06:00 Temperature Pulse Rate 66 68 68 Respiratory Rate Blood Pressure Pulse Oximetry 04/03/18 07:00 04/03/18 07:47 04/03/18 08:00 Temperature 97.9 F Pulse Rate 72 75 Respiratory Rate 18 16 Blood Pressure 115/80 Pulse Oximetry 98 04/03/18 09:00 04/03/18 10:00 Temperature Pulse Rate 77 78 Respiratory Rate Blood Pressure Pulse Oximetry Intake & Output 04/02/18 04/03/18 04/03/18 18:59 06:59 18:59 Intake Total 1845 / 1845 780 / 780 Output Total 900 / 900 1800 / 1800 Balance 945 / 945 -1020 / -1020 Weight 60.5 kg Intake: IV 1605 / 1605 300 / 300 D5W/Normal Saline Inj 1,000 ML 800 / 800 @ 200 mls/hr IV.CONT .Q5H [facility] Rx#:[id number] Intralipid 20% Inj 250 ML @ 31. 300 / 300 25 mls/hr IV.SIG Q24H [facility] Rx#: [id number] Potassium Phosphate Inj 15 MMOL 155 / 155 In NS Inj 150 ML @ 38.75 mls/ hr IV.SIG ONCE ONE Rx#:[id number] Sodium Chloride 23.4% Inj 11 650 / 650 MEQ Sodium Acetate Inj 59 MEQ KCl Inj 40 MEQ Magnesium Chloride Inj 10 MEQ Calcium Chloride Inj 9 MEQ MVI-12 Inj 10 ML Folvite Inj 1 MG NovoLIN R Inj 30 UNITS In TPN Fluid 2 Liter 2,000 ML @ 65.009 mls/hr IV.SIG Q24H [facility] Rx#:[id number] Oral 240 / 240 480 / 480 Output: Urine 900 / 900 1800 / 1800 Other: Date of Last Bowel Movement 04/02/18 # Bowel Movements 2 - Constitutional no acute distress - Routine HEENT Exam Head: Present: normocephalic, atraumatic Eye: Present: EOMI ENT: Present: mucous membranes moist - Routine Neck Exam Present: supple - Routine Respiratory Exam Present: CTA bilaterally - Routine Cardiovascular Exam Present: RRR, S1, S2 - Routine Abdominal Exam Present: soft, normoactive bowel sounds - Routine Extremities Exam Present: pulses intact - Routine Skin Exam Present: intact - Routine Neurological Exam Present: alert, oriented X3 - Detailed Neurological Exam: Coma Scale Verbal Response: Oriented - Routine Psychiatric Exam Present: normal affect, normal thought process Results - Labs CBC & Chem 7: 04/02/18 04:55 04/02/18 04:55 Laboratory Results - last 24 hr 04/02/18 04/02/18 04/02/18 11:00 12:09 15:02 POC Glucose 117 H Nasal Screen MRSA (PCR) Mrsa detected Tacrolimus 10.7 04/02/18 04/02/18 04/03/18 17:33 20:29 07:50 POC Glucose 300 H 259 H 274 H Nasal Screen MRSA (PCR) Tacrolimus Assessment and Plan - Assessment (1) Fever Code(s): R50.9 - Fever, unspecified Status: Acute (2) Renal transplant recipient Code(s): Z94.0 - Kidney transplant status Status: Acute (3) DM (diabetes mellitus) Code(s): E11.9 - Type 2 diabetes mellitus without complications Status: Acute (4) Abdominal pain Code(s): R10.9 - Unspecified abdominal pain Status: Acute - Plan 57 yof with complex medical/surgical history s/p LURKT in [place] in 06/2017. Admitted with left flank pain and FUO. No obvious source of infection yet identified. Kidney function improved from admit. Blood sugars better controlled. UOP okay. Abd pain seems improved from admit, although some acute on chronic pain still present. On diabetic clears. Await today's labs level. Thrush being treated. On Nystatin S&S. Platelets trending up. Patient worried that it will climb above a million again. Appreciate hematology-onc input. Had maroon stool yesterday. Appreciate GI input. Will check CMV/EBV PCR. Will continue to follow. (1) Fever Qualifiers: Fever type: unspecified Qualified Code(s): R50.9 - Fever, unspecified
[2018-04-03 11:33] LABS: Baso # (Auto) 0.1 th/mm3 (0.0-0.2); Baso % (Auto) 0.8 % (0.0-2.0); Eos # (Auto) 0.2 th/mm3 (0.0-0.4); Eos % (Auto) 1.6 % (0.0-4.0); Hematocrit 27.9 % (35.0-46.0); Lymph # (Auto) 2.7 th/mm3 (1.0-4.8); Lymph % (Auto) 26.4 % (9.0-44.0); Mean Corpuscular HGB Conc 32.4 % (32.0-36.0); Mean Corpuscular Hemoglobin 30.7 pg (27.0-34.0); Mean Corpuscular Volume 94.7 fL (80.0-100.0); Mean Platelet Volume 9.1 fL (7.0-11.0); Mono # (Auto) 0.8 th/mm3 (0.0-0.9); Neut # (Auto) 6.4 th/mm3 (1.8-7.7); Neut % (Auto) 63.2 % (16.0-70.0); Platelet Count 716 th/mm3 (150-450); Red Blood Count 2.95 mil/mm3 (4.00-5.30); Red Cell Distribution Width 17.3 % (11.6-17.2); White Blood Count 10.1 th/mm3 (4.0-11.0)
[2018-04-03 12:05] LABS: % Iron Saturation 18.4 % (20-50); Iron 39 mcg/dL (50-170); Total Iron Binding Capacity 211 mcg/dL (250-450)
--- NOTE | 2018-04-03 12:21 | P.PNNP ---
Subjective Interval history: Patient is stable tolerating liquid diet Physical Exam Vital signs: Vital Signs 04/02/18 13:42 04/02/18 15:00 04/02/18 15:41 Temperature 98.2 F Pulse Rate 71 68 Respiratory Rate 16 16 Blood Pressure 128/64 Pulse Oximetry 99 04/02/18 16:48 04/02/18 16:51 04/02/18 17:51 Temperature Pulse Rate 71 71 Respiratory Rate 16 Blood Pressure Pulse Oximetry 04/02/18 19:00 04/02/18 20:00 04/02/18 21:00 Temperature 98.1 F Pulse Rate 73 70 68 Respiratory Rate 16 Blood Pressure 131/70 Pulse Oximetry 99 04/02/18 22:00 04/02/18 23:00 04/03/18 00:00 Temperature 98.2 F Pulse Rate 66 71 68 Respiratory Rate 18 Blood Pressure 137/76 Pulse Oximetry 99 04/03/18 01:00 04/03/18 02:00 04/03/18 03:00 Temperature 97.9 F Pulse Rate 72 66 67 Respiratory Rate 16 Blood Pressure 140/75 Pulse Oximetry 98 04/03/18 04:00 04/03/18 05:00 04/03/18 06:00 Temperature Pulse Rate 66 68 68 Respiratory Rate Blood Pressure Pulse Oximetry 04/03/18 07:00 04/03/18 07:47 04/03/18 08:00 Temperature 97.9 F Pulse Rate 72 75 Respiratory Rate 18 16 Blood Pressure 115/80 Pulse Oximetry 98 04/03/18 09:00 04/03/18 10:00 04/03/18 11:00 Temperature 98.4 F Pulse Rate 77 78 82 Respiratory Rate 18 Blood Pressure 122/70 Pulse Oximetry 98 04/03/18 11:18 04/03/18 12:00 Temperature Pulse Rate 80 Respiratory Rate 18 Blood Pressure Pulse Oximetry Intake & Output 04/02/18 04/03/18 04/03/18 18:59 06:59 18:59 Intake Total 1845 / 1845 780 / 780 Output Total 900 / 900 1800 / 1800 Balance 945 / 945 -1020 / -1020 Weight 60.5 kg Intake: IV 1605 / 1605 300 / 300 D5W/Normal Saline Inj 1,000 ML 800 / 800 @ 200 mls/hr IV.CONT .Q5H [facility] Rx#:[id number] Intralipid 20% Inj 250 ML @ 31. 300 / 300 25 mls/hr IV.SIG Q24H [facility] Rx#: [id number] Potassium Phosphate Inj 15 MMOL 155 / 155 In NS Inj 150 ML @ 38.75 mls/ hr IV.SIG ONCE ONE Rx#:[id number] Sodium Chloride 23.4% Inj 11 650 / 650 MEQ Sodium Acetate Inj 59 MEQ KCl Inj 40 MEQ Magnesium Chloride Inj 10 MEQ Calcium Chloride Inj 9 MEQ MVI-12 Inj 10 ML Folvite Inj 1 MG NovoLIN R Inj 30 UNITS In TPN Fluid 2 Liter 2,000 ML @ 65.009 mls/hr IV.SIG Q24H [facility] Rx#:[id number] Oral 240 / 240 480 / 480 Output: Urine 900 / 900 1800 / 1800 Other: Date of Last Bowel Movement 04/02/18 # Bowel Movements 2 Narrative: GENERAL: Well-nourished, well-developed patient. SKIN: Warm and dry. HEAD: Normocephalic. EYES: No scleral icterus. No injection or drainage. NECK: Supple, trachea midline. No JVD or lymphadenopathy. CARDIOVASCULAR: Regular rate and rhythm without murmurs, gallops, or rubs. Ward catheter on the right internal jugular. RESPIRATORY: Breath sounds equal bilaterally. No accessory muscle use. GASTROINTESTINAL: Abdomen soft, mildly tender, nondistended. Multiple surgical scar there is a right lower abdominal scar, all are healed. EXTREMITIES: No edema NEUROLOGICAL: Awake, alert, and oriented x 3. Non-focal. Assessment and Plan - Assessment (1) Acute renal failure Code(s): N17.9 - Acute kidney failure, unspecified Status: Acute (2) Thrombocytopenia Code(s): D69.6 - Thrombocytopenia, unspecified Status: Acute (3) Fever Code(s): R50.9 - Fever, unspecified Status: Acute Qualifiers: Fever type: unspecified Qualified Code(s): R50.9 - Fever, unspecified (4) Renal transplant recipient Code(s): Z94.0 - Kidney transplant status Status: Acute (5) On total parenteral nutrition (TPN) Code(s): Z78.9 - Other specified health status Status: Acute (6) DM (diabetes mellitus) Code(s): E11.9 - Type 2 diabetes mellitus without complications Status: Acute (7) Abdominal pain Code(s): R10.9 - Unspecified abdominal pain Status: Acute - Plan Patient has acute renal failure with baseline creatinine around 0.9 currently at 1.2, Doing better creatinine pending Thrush nystatin Thrombocytosis platelets are climbing up hematology following Blood glucose fluctuate Monitor tacrolimus level Follow BMP Avoid nephrotoxins
[2018-04-03 12:23] LABS: Calcium 10.3 mg/dL (8.5-10.1); Carbon Dioxide 27.3 meq/L (21.0-32.0); Magnesium 1.5 mg/dL (1.5-2.5); Phosphorus 2.2 mg/dL (2.5-4.9); Potassium 4.3 meq/L (3.5-5.1)
[2018-04-03 12:30] LABS: Ferritin 128 ng/mL (8-252); Vitamin B12 527 pg/mL (193-986)
--- NOTE | 2018-04-03 12:57 | P.PNONC ---
Subjective Interval history: Resting comfortably in bed in no distress. GI bleed yesterday with maroon colored stools. Objective Vital Signs/Intake & Output: Vital Signs 04/02/18 13:42 04/02/18 15:00 04/02/18 15:41 Temperature 98.2 F Pulse Rate 71 68 Respiratory Rate 16 16 Blood Pressure 128/64 Pulse Oximetry 99 04/02/18 16:48 04/02/18 16:51 04/02/18 17:51 Temperature Pulse Rate 71 71 Respiratory Rate 16 Blood Pressure Pulse Oximetry 04/02/18 19:00 04/02/18 20:00 04/02/18 21:00 Temperature 98.1 F Pulse Rate 73 70 68 Respiratory Rate 16 Blood Pressure 131/70 Pulse Oximetry 99 04/02/18 22:00 04/02/18 23:00 04/03/18 00:00 Temperature 98.2 F Pulse Rate 66 71 68 Respiratory Rate 18 Blood Pressure 137/76 Pulse Oximetry 99 04/03/18 01:00 04/03/18 02:00 04/03/18 03:00 Temperature 97.9 F Pulse Rate 72 66 67 Respiratory Rate 16 Blood Pressure 140/75 Pulse Oximetry 98 04/03/18 04:00 04/03/18 05:00 04/03/18 06:00 Temperature Pulse Rate 66 68 68 Respiratory Rate Blood Pressure Pulse Oximetry 04/03/18 07:00 04/03/18 07:47 04/03/18 08:00 Temperature 97.9 F Pulse Rate 72 75 Respiratory Rate 18 16 Blood Pressure 115/80 Pulse Oximetry 98 04/03/18 09:00 04/03/18 10:00 04/03/18 11:00 Temperature 98.4 F Pulse Rate 77 78 82 Respiratory Rate 18 Blood Pressure 122/70 Pulse Oximetry 98 04/03/18 11:18 04/03/18 12:00 Temperature Pulse Rate 80 Respiratory Rate 18 Blood Pressure Pulse Oximetry Intake & Output 04/02/18 04/03/18 04/03/18 18:59 06:59 18:59 Intake Total 1845 / 1845 780 / 780 Output Total 900 / 900 1800 / 1800 Balance 945 / 945 -1020 / -1020 Weight 60.5 kg Intake: IV 1605 / 1605 300 / 300 D5W/Normal Saline Inj 1,000 ML 800 / 800 @ 200 mls/hr IV.CONT .Q5H [facility] Rx#:[id number] Intralipid 20% Inj 250 ML @ 31. 300 / 300 25 mls/hr IV.SIG Q24H [facility] Rx#: [id number] Potassium Phosphate Inj 15 MMOL 155 / 155 In NS Inj 150 ML @ 38.75 mls/ hr IV.SIG ONCE ONE Rx#:[id number] Sodium Chloride 23.4% Inj 11 650 / 650 MEQ Sodium Acetate Inj 59 MEQ KCl Inj 40 MEQ Magnesium Chloride Inj 10 MEQ Calcium Chloride Inj 9 MEQ MVI-12 Inj 10 ML Folvite Inj 1 MG NovoLIN R Inj 30 UNITS In TPN Fluid 2 Liter 2,000 ML @ 65.009 mls/hr IV.SIG Q24H [facility] Rx#:[id number] Oral 240 / 240 480 / 480 Output: Urine 900 / 900 1800 / 1800 Other: Date of Last Bowel Movement 04/02/18 # Bowel Movements 2 Result Diagrams: 04/03/18 10:35 04/03/18 10:35 Laboratory Results: Laboratory Results - last 24 hr 04/02/18 04/02/18 04/02/18 15:02 17:33 20:29 WBC RBC Hgb Hct MCV MCH MCHC RDW Plt Count MPV Prelim Diff (Auto) Neut % (Auto) Lymph % (Auto) [place] % (Auto) Eos % (Auto) Baso % (Auto) Neut # (Auto) Lymph # (Auto) [place] # (Auto) Eos # (Auto) Baso # (Auto) WBC Differential Differential Comment ESR Sodium Potassium Chloride Carbon Dioxide Anion Gap BUN Creatinine Estimated GFR POC Glucose 300 H 259 H Random Glucose Calcium Phosphorus Magnesium Iron TIBC % Saturation Ferritin C-Reactive Protein Vitamin B12 Folate Nasal Screen MRSA (PCR) Mrsa detected 04/03/18 04/03/18 04/03/18 07:50 10:35 10:35 WBC 10.1 RBC 2.95 L Hgb 9.0 L Hct 27.9 L MCV 94.7 D MCH 30.7 MCHC 32.4 RDW 17.3 H Plt Count 716 H MPV 9.1 Prelim Diff (Auto) Sander Hand Neut % (Auto) 63.2 Lymph % (Auto) 26.4 [place] % (Auto) 8.0 Eos % (Auto) 1.6 Baso % (Auto) 0.8 Neut # (Auto) 6.4 Lymph # (Auto) 2.7 [place] # (Auto) 0.8 Eos # (Auto) 0.2 Baso # (Auto) 0.1 WBC Differential . Differential Comment Auto diff final ESR Sodium 131 L Potassium 4.3 Chloride 94 L Carbon Dioxide 27.3 Anion Gap 10 BUN 31 H Creatinine 1.25 H Estimated GFR 44 L POC Glucose 274 H Random Glucose 425 H D Calcium 10.3 H D Phosphorus 2.2 L Magnesium 1.5 Iron TIBC % Saturation Ferritin C-Reactive Protein Vitamin B12 Folate Nasal Screen MRSA (PCR) 04/03/18 04/03/18 04/03/18 10:35 10:35 11:25 WBC RBC Hgb Hct MCV MCH MCHC RDW Plt Count MPV Prelim Diff (Auto) Neut % (Auto) Lymph % (Auto) [place] % (Auto) Eos % (Auto) Baso % (Auto) Neut # (Auto) Lymph # (Auto) [place] # (Auto) Eos # (Auto) Baso # (Auto) WBC Differential Differential Comment ESR 46 H Sodium Potassium Chloride Carbon Dioxide Anion Gap BUN Creatinine Estimated GFR POC Glucose 182 H Random Glucose Calcium Phosphorus Magnesium Iron 39 L TIBC 211 L % Saturation 18.4 L Ferritin 128 C-Reactive Protein 2.20 H Vitamin B12 527 Folate Greater than 20.0 H Nasal Screen MRSA (PCR) Culture Results: Microbiology 03/27/18 20:00 Aerobic Blood Culture - Final Blood - Line No growth in 5 days Anaerobic Blood Culture - Final No growth in 5 days 03/27/18 20:10 Aerobic Blood Culture - Final Blood - Line No growth in 5 days Anaerobic Blood Culture - Final No growth in 5 days Medications: Active Medications Generic Name Dose Route Start Last Admin Trade Name Freq PRN Reason Stop Dose Admin Lipase/Protease/Amylase 1 cap 03/28/18 08:00 04/03/18 11:26 Donovan Weinberg 24/76/120 PO 1 cap TIDAC [facility] Administration Anagrelide HCl 0.5 mg 03/27/18 23:30 04/03/18 10:48 Agrylin PO Not Given Q12H [facility] Atorvastatin Calcium 20 mg 03/28/18 09:00 04/03/18 08:40 Lipitor PO 20 mg DAILY [facility] Administration Azathioprine 100 mg 03/28/18 09:00 03/29/18 10:16 Imuran PO Not Given DAILY [facility] Calcium Carbonate 500 mg 03/28/18 09:00 04/03/18 08:41 Oscal PO 500 mg BID [facility] Administration Carvedilol 12.5 mg 03/28/18 09:00 04/03/18 08:41 Coreg PO 12.5 mg BID [facility] Administration Chlorhexidine Gluconate 3 pack 03/31/18 04:00 04/03/18 05:42 Chlorhexidine 2% Cloth TOPICAL 04/05/18 03:59 Not Given DAILY@0400 [facility] Clonidine HCl 0.1 mg 03/29/18 08:15 03/30/18 16:24 Catapres PO 0.1 mg Q6H PRN Administration SBP>160, DBP>90 Diphenoxylate HCl/Atropine 1 tab 03/28/18 09:00 04/03/18 12:03 Lomotil PO Not Given TID [facility] Enoxaparin Sodium 40 mg 03/28/18 09:00 04/02/18 10:25 Lovenox Inj SQ 40 mg DAILY [facility] Administration Heparin Sodium (Porcine) 0 unit 03/28/18 01:25 03/28/18 05:44 Heparin Central Flush IV.FLUSH 250 unit PRN PRN Administration Flush each lumen Heparin Sodium (Porcine) 0 unit 03/28/18 09:00 04/03/18 08:41 Heparin Central Flush IV.FLUSH 500 unit DAILY [facility] Administration Hydroxyzine HCl 50 mg 04/03/18 03:11 04/03/18 11:02 Vistaril Inj IM 50 mg Q6H PRN Administration pruritis Fat Emulsion Intravenous 250 mls @ 31.25 mls/hr 03/30/18 20:00 04/03/18 05:42 Intralipid 20% Inj IV.SIG Infused Q24H [facility] Infusion Dextrose/Sodium Chloride 1,000 mls @ 200 mls/hr 03/30/18 11:30 04/03/18 10:48 D5w/Normal Saline Inj IV.CONT Not Given .Q5H [facility] Sodium Chloride 1,000 mls @ 250 mls/hr 03/30/18 11:30 04/03/18 10:48 Ns Inj IV.CONT Not Given .Q4H [facility] Potassium Chloride 20 meq in 100 mls @ 100 mls/hr 03/30/18 11:28 04/01/18 14: 57 Kcl 20 Meq Premix Inj IV.SIG Infused Q1H PRN Infusion for K+ 4.5 to 5 Sodium Chloride 11 meq/ Sodium 2,059.6937 mls @ 65.009 mls/hr 03/31/18 20:00 04/02/18 21:19 Acetate 59 meq/ Potassium IV.SIG 65.01 mls/hr Chloride 40 meq/ Magnesium Q24H [facility] Administration Chloride 10 meq/ Calcium Chloride 9 meq/ Multivitamins 10 ml/ Folic Acid 1 mg/ Insulin Human Regular 30 units / Amino Acids/Electrolytes/ Dextrose Insulin Human Regular 0 units 03/31/18 12:00 04/03/18 11:27 Novolin R Correctional Sugar Inj SQ 1 units ACHS [facility] Administration Protocol Morphine Sulfate 4 mg 03/30/18 09:47 04/03/18 11:02 Morphine Inj IV.PUSH 4 mg Q2H PRN Administration PAIN SCALE 6 TO 10 Nystatin 5 ml 04/02/18 10:00 04/03/18 12:05 Mycostatin Liq SWISH-SWAL 5 ml QID [facility] Administration Ondansetron HCl 4 mg 04/01/18 00:33 04/03/18 10:39 Zofran Inj IV.PUSH 4 mg Q6H PRN Administration NAUSEA OR VOMITING Pantoprazole Sodium 40 mg 03/28/18 09:00 04/03/18 08:41 Protonix PO 40 mg BID [facility] Administration Prednisone 10 mg 03/28/18 09:00 04/03/18 08:40 Deltasone PO 10 mg DAILY [facility] Administration Promethazine HCl 25 mg 03/29/18 12:06 04/03/18 02:34 Phenergan PO 25 mg Q4H PRN Administration NAUSEA OR VOMITING Senna/Docusate Sodium 1 tab 03/28/18 09:00 04/03/18 08:41 Saray-Colace PO 1 tab BID [facility] Administration Sodium Chloride 0 ml 03/28/18 09:00 04/03/18 08:41 Ns Flush IV.FLUSH 10 ml DAILY [facility] Administration Sodium Chloride 0 ml 03/28/18 01:25 03/28/18 05:45 Ns Flush IV.FLUSH 10 ml PRN PRN Administration FLUSH AFTER USING IV ACCESS Tacrolimus 4 mg 03/27/18 23:30 04/03/18 11:26 Prograf PO 4 mg Q12H [facility] Administration Objective Remarks: GENERAL: Well-nourished, well-developed patient. SKIN: Warm and dry. HEAD: Normocephalic. EYES: No scleral icterus. No injection or drainage. RESPIRATORY: No accessory muscle use. GASTROINTESTINAL: Abdomen non distended EXTREMITIES: No edema. MUSCULOSKELETAL: Adequate muscle tone. NEUROLOGICAL: No obvious focal deficit. PSYCHIATRIC: Appropriate mood and affect; insight and judgment normal. Assessment/Plan - Plan 1. thrombocytosis: work up at [facility] and per outside notes is reactive. On Wednesday will request JAK2, CALR, MPL studies from this institution. Reactive causes can include infection, inflammation, recent transplant. Platelet count rising. Patient declines anagrelide. 2. history of VTE: on lovenox 60 mg subq BID which is currently being held due to GIB. 3. GIB: GI team following. Small decline in hemoglobin. 4. Anticoagulation: risks vs benefits of anticoagulation in a patient with a history of recurrent VTE and now GIB. Would restart anticoagulation as soon as possible. If patient is unable to tolerate anticoagulation would consider filter placement.
[2018-04-03] MEDS: Potassium Phos/Sodium Phos 250 MG Tablet PO SCH ×2 (13:31→17:27)
[2018-04-03] MEDS: [UNRECOGNIZED DRUG - OTHER] IV.SIG SCH ×9 (19:41)
[2018-04-04] MEDS: Sod Chloride 0.9% Inj 1,000 ML IV.CONT SCH ×7 (01:36→23:06)
[2018-04-04] MEDS: Morphine Inj 4 MG/ML Vial IV.PUSH PRN ×10 (01:36→23:57)
[2018-04-04] MEDS: Dextrose 5%/NaCl 0.9% Inj 1,000 ML IV.CONT SCH ×5 (01:37→21:30)
[2018-04-04] MEDS: Chlorhexidine Gluconate 2% 1 Pack (2 Cloths) TOPICAL SCH (04:28)
[2018-04-04] MEDS ORDERED: Aluminum/Magnesium/Simethacone Susp 30 ML UDC PO ONE (04:39)
[2018-04-04] MEDS: Senna/Docusate Sodium 8.6/50 MG Tablet PO SCH ×2 (08:45→20:26)
[2018-04-04] MEDS: Nystatin Liq 500,000 UNIT/5 ML UDC SWISH-SWAL SCH ×4 (08:45→20:25)
[2018-04-04] MEDS: Lipase/Protease/Amylase 24/76/120 DR Capsule PO SCH ×3 (08:46→17:12)
[2018-04-04] MEDS: predniSONE 10 MG Tablet PO SCH (08:46)
[2018-04-04] MEDS: Calcium Carbonate 500 MG Tablet PO SCH ×2 (08:46→20:26)
[2018-04-04] MEDS: Diphenoxylate/Atropine 2.5/0.025 MG Tablet PO SCH ×3 (08:46→17:12)
[2018-04-04] MEDS: Potassium Phos/Sodium Phos 250 MG Tablet PO SCH ×3 (08:46→17:12)
[2018-04-04] MEDS: Carvedilol 12.5 MG Tablet PO SCH ×2 (08:46→20:25)
[2018-04-04] MEDS: Insulin NovoLIN Regular Correctional Sugar Inj SQ SCH ×4 (08:47→20:56)
[2018-04-04] MEDS: Heparin Central Flush 100 UNIT/ML 5 ML Vial IV.FLUSH SCH (08:48)
[2018-04-04 11:25] LABS: Baso # (Auto) 0.1 th/mm3 (0.0-0.2); Baso % (Auto) 0.8 % (0.0-2.0); Eos # (Auto) 0.2 th/mm3 (0.0-0.4); Eos % (Auto) 1.5 % (0.0-4.0); Hematocrit 28.5 % (35.0-46.0); Hemoglobin 8.9 gm/dL (11.6-15.3); Mean Corpuscular HGB Conc 31.3 % (32.0-36.0); Mean Corpuscular Hemoglobin 28.1 pg (27.0-34.0); Mean Corpuscular Volume 89.8 fL (80.0-100.0); Mean Platelet Volume 8.9 fL (7.0-11.0); Mono # (Auto) 1.4 th/mm3 (0.0-0.9); Mono % (Auto) 10.8 % (0.0-8.0); Neut # (Auto) 10.3 th/mm3 (1.8-7.7); Neut % (Auto) 78.9 % (16.0-70.0); Platelet Count 872 th/mm3 (150-450); Red Blood Count 3.18 mil/mm3 (4.00-5.30); White Blood Count 13.1 th/mm3 (4.0-11.0)
[2018-04-04 11:52] LABS: Calcium 9.4 mg/dL (8.5-10.1); Carbon Dioxide 31.3 meq/L (21.0-32.0); Magnesium 1.6 mg/dL (1.5-2.5); Phosphorus 2.2 mg/dL (2.5-4.9); Potassium 4.8 meq/L (3.5-5.1)
--- NOTE | 2018-04-04 13:07 | P.PNGI ---
Subjective Interval history: Patient is awake alert resting in the bed Lomotil effective with 3+ stools a day instead of 10+ stools a day Dyspepsia over the past 24 hours, but appears to be somewhat better this a.m. Left lower quadrant abdominal discomfort but mildly improved <SreeMichaelle M - Last Filed: 04/04/18 13:13> Physical Exam Vital signs: Vital Signs 04/03/18 13:49 04/03/18 13:50 04/03/18 15:00 Temperature 98.7 F Pulse Rate 75 77 Respiratory Rate 14 18 Blood Pressure 127/68 Pulse Oximetry 97 04/03/18 15:57 04/03/18 16:23 04/03/18 17:36 Temperature Pulse Rate 72 77 74 Respiratory Rate Blood Pressure Pulse Oximetry 04/03/18 17:39 04/03/18 19:00 04/03/18 20:00 Temperature 98.2 F Pulse Rate 78 72 Respiratory Rate 18 18 Blood Pressure 137/71 Pulse Oximetry 98 04/03/18 21:00 04/03/18 22:00 04/03/18 23:00 Temperature 98.1 F Pulse Rate 73 74 75 Respiratory Rate 16 Blood Pressure 123/64 Pulse Oximetry 99 04/04/18 00:00 04/04/18 01:00 04/04/18 02:00 Temperature Pulse Rate 70 76 70 Respiratory Rate Blood Pressure Pulse Oximetry 04/04/18 03:00 04/04/18 04:00 04/04/18 05:00 Temperature 98.4 F Pulse Rate 70 70 75 Respiratory Rate 14 Blood Pressure 138/70 Pulse Oximetry 96 04/04/18 06:00 04/04/18 07:00 04/04/18 08:00 Temperature 98.5 F Pulse Rate 76 82 80 Respiratory Rate 16 Blood Pressure 135/79 Pulse Oximetry 97 04/04/18 09:00 04/04/18 10:00 04/04/18 11:00 Temperature 98.6 F Pulse Rate 78 80 83 Respiratory Rate 16 Blood Pressure 134/72 Pulse Oximetry 96 04/04/18 12:00 Temperature Pulse Rate 81 Respiratory Rate Blood Pressure Pulse Oximetry Intake & Output 04/03/18 04/04/18 04/04/18 18:59 06:59 18:59 Intake Total 480 / 480 1086.6937 / 1086.6937 Output Total 1900 / 1900 900 / 900 Balance -1420 / -3772 556.3410 / 186.6937 Weight 60 kg Intake: IV 606.6937 / 606.6937 Intralipid 20% Inj 250 ML @ 31. 250 / 250 25 mls/hr IV.SIG Q24H [facility] Rx#: [id number] Sodium Chloride 23.4% Inj 11 356.6937 / 356.6937 MEQ Sodium Acetate Inj 59 MEQ KCl Inj 40 MEQ Magnesium Chloride Inj 10 MEQ Calcium Chloride Inj 9 MEQ MVI-12 Inj 10 ML Folvite Inj 1 MG NovoLIN R Inj 30 UNITS In TPN Fluid 2 Liter 2,000 ML @ 65.009 mls/hr IV.SIG Q24H [facility] Rx#:[id number] Oral 480 / 480 480 / 480 Output: Urine 1900 / 1900 900 / 900 Other: Date of Last Bowel Movement 04/03/18 04/04/18 # Bowel Movements 1 2 - Constitutional mild distress, thin - Routine HEENT Exam Head: Present: normocephalic ENT: Present: mucous membranes moist - Routine Respiratory Exam Present: accessory muscle use (No obvious shortness of breath rhonchi or wheezing) - Routine Cardiovascular Exam Present: S1, S2 - Routine Abdominal Exam Present: soft (Flat,), normoactive bowel sounds (Bowel sounds predominantly in left lower quadrant, no obvious distention, some left lower quadrant discomfort to light palpation) - Routine Neurological Exam Present: alert <Michaelle Balbuena M - Last Filed: 04/04/18 13:13> Vital signs: Vital Signs 04/03/18 15:57 04/03/18 16:23 04/03/18 17:36 Temperature Pulse Rate 72 77 74 Respiratory Rate Blood Pressure Pulse Oximetry 04/03/18 17:39 04/03/18 19:00 04/03/18 20:00 Temperature 98.2 F Pulse Rate 78 72 Respiratory Rate 18 18 Blood Pressure 137/71 Pulse Oximetry 98 04/03/18 21:00 04/03/18 22:00 04/03/18 23:00 Temperature 98.1 F Pulse Rate 73 74 75 Respiratory Rate 16 Blood Pressure 123/64 Pulse Oximetry 99 04/04/18 00:00 04/04/18 01:00 04/04/18 02:00 Temperature Pulse Rate 70 76 70 Respiratory Rate Blood Pressure Pulse Oximetry 04/04/18 03:00 04/04/18 04:00 04/04/18 05:00 Temperature 98.4 F Pulse Rate 70 70 75 Respiratory Rate 14 Blood Pressure 138/70 Pulse Oximetry 96 04/04/18 06:00 04/04/18 07:00 04/04/18 08:00 Temperature 98.5 F Pulse Rate 76 82 80 Respiratory Rate 16 Blood Pressure 135/79 Pulse Oximetry 97 04/04/18 09:00 04/04/18 10:00 04/04/18 11:00 Temperature 98.6 F Pulse Rate 78 80 83 Respiratory Rate 16 Blood Pressure 134/72 Pulse Oximetry 96 04/04/18 12:00 04/04/18 13:00 04/04/18 14:00 Temperature Pulse Rate 81 77 75 Respiratory Rate Blood Pressure Pulse Oximetry 04/04/18 15:00 Temperature 98.1 F Pulse Rate 76 Respiratory Rate 16 Blood Pressure 133/81 Pulse Oximetry 99 Intake & Output 04/03/18 04/04/18 04/04/18 18:59 06:59 18:59 Intake Total 480 / 480 1086.6937 / 1086.6937 Output Total 1900 / 1900 900 / 900 Balance -1420 / -8125 466.9967 / 186.6937 Weight 60 kg Intake: IV 606.6937 / 606.6937 Intralipid 20% Inj 250 ML @ 31. 250 / 250 25 mls/hr IV.SIG Q24H [facility] Rx#: [id number] Sodium Chloride 23.4% Inj 11 356.6937 / 356.6937 MEQ Sodium Acetate Inj 59 MEQ KCl Inj 40 MEQ Magnesium Chloride Inj 10 MEQ Calcium Chloride Inj 9 MEQ MVI-12 Inj 10 ML Folvite Inj 1 MG NovoLIN R Inj 30 UNITS In TPN Fluid 2 Liter 2,000 ML @ 65.009 mls/hr IV.SIG Q24H [facility] Rx#:[id number] Oral 480 / 480 480 / 480 Output: Urine 1900 / 1900 900 / 900 Other: Date of Last Bowel Movement 04/03/18 04/04/18 # Bowel Movements 1 2 <Miller Pollard - Last Filed: 04/04/18 15:40> Results - Labs CBC & Chem 7: 04/04/18 11:03 04/04/18 11:03 Laboratory Results - last 24 hr 04/03/18 04/03/18 04/03/18 10:35 16:41 21:30 WBC RBC Hgb Hct MCV MCH MCHC RDW Plt Count MPV Neut % (Auto) Lymph % (Auto) [place] % (Auto) Eos % (Auto) Baso % (Auto) Neut # (Auto) Lymph # (Auto) [place] # (Auto) Eos # (Auto) Baso # (Auto) WBC Differential Differential Comment Sodium Potassium Chloride Carbon Dioxide Anion Gap BUN Creatinine Estimated GFR POC Glucose 249 H Random Glucose Calcium Phosphorus Magnesium Nasal Screen MRSA (PCR) Mrsa detected Tacrolimus 12.8 04/03/18 04/04/18 04/04/18 21:35 07:59 11:03 WBC RBC Hgb Hct MCV MCH MCHC RDW Plt Count MPV Neut % (Auto) Lymph % (Auto) [place] % (Auto) Eos % (Auto) Baso % (Auto) Neut # (Auto) Lymph # (Auto) [place] # (Auto) Eos # (Auto) Baso # (Auto) WBC Differential Differential Comment Sodium 133 L Potassium 4.8 Chloride 93 L Carbon Dioxide 31.3 Anion Gap 9 BUN 34 H Creatinine 1.33 H Estimated GFR 41 L POC Glucose 318 H 264 H Random Glucose 364 H Calcium 9.4 D Phosphorus 2.2 L Magnesium 1.6 Nasal Screen MRSA (PCR) Tacrolimus 04/04/18 04/04/18 11:03 11:26 WBC 13.1 H RBC 3.18 L Hgb 8.9 L Hct 28.5 L MCV 89.8 D MCH 28.1 MCHC 31.3 L RDW 17.0 Plt Count 872 H MPV 8.9 Neut % (Auto) 78.9 H Lymph % (Auto) 8.0 L [place] % (Auto) 10.8 H Eos % (Auto) 1.5 Baso % (Auto) 0.8 Neut # (Auto) 10.3 H Lymph # (Auto) 1.0 [place] # (Auto) 1.4 H Eos # (Auto) 0.2 Baso # (Auto) 0.1 WBC Differential . Differential Comment Auto diff final Sodium Potassium Chloride Carbon Dioxide Anion Gap BUN Creatinine Estimated GFR POC Glucose 182 H Random Glucose Calcium Phosphorus Magnesium Nasal Screen MRSA (PCR) Tacrolimus <Michaelle Balbuena - Last Filed: 04/04/18 13:13> - Labs CBC & Chem 7: 04/04/18 11:03 04/04/18 11:03 Laboratory Results - last 24 hr 04/03/18 04/03/18 04/03/18 16:41 21:30 21:35 WBC RBC Hgb Hct MCV MCH MCHC RDW Plt Count MPV Neut % (Auto) Lymph % (Auto) [place] % (Auto) Eos % (Auto) Baso % (Auto) Neut # (Auto) Lymph # (Auto) [place] # (Auto) Eos # (Auto) Baso # (Auto) WBC Differential Differential Comment Sodium Potassium Chloride Carbon Dioxide Anion Gap BUN Creatinine Estimated GFR POC Glucose 249 H 318 H Random Glucose Calcium Phosphorus Magnesium Nasal Screen MRSA (PCR) Mrsa detected Tacrolimus 04/04/18 04/04/18 04/04/18 07:59 11:03 11:03 WBC RBC Hgb Hct MCV MCH MCHC RDW Plt Count MPV Neut % (Auto) Lymph % (Auto) [place] % (Auto) Eos % (Auto) Baso % (Auto) Neut # (Auto) Lymph # (Auto) [place] # (Auto) Eos # (Auto) Baso # (Auto) WBC Differential Differential Comment Sodium 133 L Potassium 4.8 Chloride 93 L Carbon Dioxide 31.3 Anion Gap 9 BUN 34 H Creatinine 1.33 H Estimated GFR 41 L POC Glucose 264 H Random Glucose 364 H Calcium 9.4 D Phosphorus 2.2 L Magnesium 1.6 Nasal Screen MRSA (PCR) Tacrolimus 11.2 04/04/18 04/04/18 11:03 11:26 WBC 13.1 H RBC 3.18 L Hgb 8.9 L Hct 28.5 L MCV 89.8 D MCH 28.1 MCHC 31.3 L RDW 17.0 Plt Count 872 H MPV 8.9 Neut % (Auto) 78.9 H Lymph % (Auto) 8.0 L [place] % (Auto) 10.8 H Eos % (Auto) 1.5 Baso % (Auto) 0.8 Neut # (Auto) 10.3 H Lymph # (Auto) 1.0 [place] # (Auto) 1.4 H Eos # (Auto) 0.2 Baso # (Auto) 0.1 WBC Differential . Differential Comment Auto diff final Sodium Potassium Chloride Carbon Dioxide Anion Gap BUN Creatinine Estimated GFR POC Glucose 182 H Random Glucose Calcium Phosphorus Magnesium Nasal Screen MRSA (PCR) Tacrolimus - Imaging Impressions Venous Doppler Study 04/04/18 13:29 CONCLUSION: 1. Nonocclusive small volume thrombus involving the distal superficial femoral vein and peroneal vein on the left. This could relate to residual chronic thrombus from the patient's prior DVT. 2. No thrombus involving the right lower extremity. 3. Nothing to account for bilateral lower extremity swelling. <Miller Pollard - Last Filed: 04/04/18 15:40> Assessment and Plan - Plan Patient is a 57-year-old female with a past medical history significant for diabetes mellitus, dumping syndrome for which she is on TPN, chronic diarrhea, GERD, splenectomy, gastroparesis, history of DVT on Lovenox subcu, and renal transplant. Patient was initially referred to the emergency room at [facility] by her transplant physician due to fever. Patient's Renal Transplant Took Pl. in June of 2017 in [facility]. Patient spent an extended amount of time hospitalized due to multiple complications including dumping syndrome for which she is presently on TPN. Patient also able to tolerate clear liquid diet. This service has been consulted to evaluate patient 's report of loose maroon colored stool x1 yesterday. Patient reports chronic diarrhea with loose stools that are normally brown in color with no noted blood for 1 year. Patient reports last EGD and colonoscopy performed in October 2017 at [facility] in [facility]. Per patient EGD findings revealed esophagitis [place] for which she was treated with Diflucan and is presently being treated with nystatin swish and swallow for thrush. Patient denies any difficulty swallowing, denies coughing or choking. She denies vomiting endorses history of GERD for which she had been taking Dexilant. Patient states that she has been off Dexilant for 5 months and is presently on pantoprazole which is somewhat can controlling acid reflux symptoms. She reports intermittent nausea that is relieved by Zofran. Patient states she has chronic epigastric pain that radiates to the left upper quadrant she describes same as sharp and throbbing. Colonoscopy done in October 2017 revealed benign polyps per patient. Patient denies any known family history for gastrointestinal disorders. She does state that she has a niece that has IBS. Patient surgical history is significant for a pancreatectomy in 2010, revision of anastomosis from liver to intestines January 2018. Patient states she has 200 cm left of small bowel. Patient underwent renal transplant in [place] in June 2017. Lovenox on hold for now. 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 Patient denies smoking or use of tobacco as well as any use of alcohol. Will obtain medical records from [facility] in regards to patient's EGD and colonoscopy done in October 2017. Patient denies any further bleeding noted. No BM yet this morning. 04/03/18 Rectal Bleeding-Patient endorses one episode of maroon colored loose stool yesterday. 04/02/2018 hemoglobin 9.4 hematocrit 29.7 platelet count 606. Patient denies any further noted bleeding, no BM yet today. Lovenox on hold. 04/04/2018, patient initially was evaluated with maroon stool x1 since admission no further rectal bleeding noted patient does note some left lower quadrant discomfort. Loose diarrhea stools are more controlled with Lomotil patient states 3 stools a day instead of 10+ Patient states no colonoscopy since 2010 but has significant GI history as listed above. Patient states no nausea no vomiting but dyspepsia all day on 04/03. Encourage patient to elevate head of bed and to take antireflux precautionary measures which includes slow eating chew food well and hydrate while eating. Any medical records from [place] are pending. GI will continue to monitor for any GI bleed, at that time will consider endoscopy. Current hemoglobin 8.9, WBC count 13.1, History of GERD, dyspepsia over the past 24 hours but appears to be somewhat better today, states Tums were ineffective, antireflux precautions more effective Maroon stool, GI bleed appears to be more controlled, no further bleeding noted Plan Diet, clear liquids and TPN PPI p.o. twice daily Imodium up to 3 times a day continue Monitor labs with special attention to hemoglobin and any obvious GI bleed Creon, Imuran Continue to hold Lovenox Supportive Patient was seen per myself and Dr. Pollard, note was written on his behalf <Michaelle Balbuena - Last Filed: 04/04/18 13:13> - Plan Seen and examined with [employer], worsening abdominal pain today with elevated WBC counts. Discussed with Dr Llanes. CT with oral contrast ordered. If -ve egd / sigmoidoscopy tomorrow. The exam, history, and the medical decision-making described in the above note were completed with the assistance of the mid-level provider. I reviewed and agree with the findings presented. I attest that I had a [id number] encounter with the patient on the same day, and personally performed and documented my assessment and findings in the medical record. <Miller Pollard - Last Filed: 04/04/18 15:40>
--- NOTE | 2018-04-04 13:32 | P.PN ---
Subjective Interval history: This is a pleasant 57 y/o Female with DM II, dumping syndrome, she is on TPN, chronic diarrhea, GERD, Splenectomy gastroparesis, history of DVT on Lovenox subcu, and renal transplant. Patient was initially referred to the emergency room at [facility] by her transplant physician due to fever. found with Diarrhea, had Esophagitis German[place] treated with Diflucan, Colonoscopy october 2017 benign polyps, Pancreatectomy 2010, revision of anastomosis from Liver to Intestines January 2018, Renal Transplant June 2017, Recent DVR August 2017 , developed rectal bleed 04/03 Improving Diarrhea with Lomotil, GI recommended clear liquid diet, PPI, Imodium , monitor laboratory, Creon, Imuran. continue to hold Lovenox. thrombocytosis. history of VTE on Lovenox 60 mg BID at this time on hold, Seen in her Bedroom at this time Doctor Atul in to see the patient and discuss in my presence with Doctor Gilberto Patel will perform Sigmoidoscopy tomorrow morning. Physical Exam Vital signs: Vital Signs 04/03/18 13:49 04/03/18 13:50 04/03/18 15:00 Temperature 98.7 F Pulse Rate 75 77 Respiratory Rate 14 18 Blood Pressure 127/68 Pulse Oximetry 97 04/03/18 15:57 04/03/18 16:23 04/03/18 17:36 Temperature Pulse Rate 72 77 74 Respiratory Rate Blood Pressure Pulse Oximetry 04/03/18 17:39 04/03/18 19:00 04/03/18 20:00 Temperature 98.2 F Pulse Rate 78 72 Respiratory Rate 18 18 Blood Pressure 137/71 Pulse Oximetry 98 04/03/18 21:00 04/03/18 22:00 04/03/18 23:00 Temperature 98.1 F Pulse Rate 73 74 75 Respiratory Rate 16 Blood Pressure 123/64 Pulse Oximetry 99 04/04/18 00:00 04/04/18 01:00 04/04/18 02:00 Temperature Pulse Rate 70 76 70 Respiratory Rate Blood Pressure Pulse Oximetry 04/04/18 03:00 04/04/18 04:00 04/04/18 05:00 Temperature 98.4 F Pulse Rate 70 70 75 Respiratory Rate 14 Blood Pressure 138/70 Pulse Oximetry 96 04/04/18 06:00 04/04/18 07:00 10/08/18 08:00 Temperature 98.5 F Pulse Rate 76 82 80 Respiratory Rate 16 Blood Pressure 135/79 Pulse Oximetry 97 04/04/18 09:00 04/04/18 10:00 04/04/18 11:00 Temperature 98.6 F Pulse Rate 78 80 83 Respiratory Rate 16 Blood Pressure 134/72 Pulse Oximetry 96 04/04/18 12:00 04/04/18 13:00 Temperature Pulse Rate 81 77 Respiratory Rate Blood Pressure Pulse Oximetry Intake & Output 04/03/18 04/04/18 04/04/18 18:59 06:59 18:59 Intake Total 480 / 480 1086.6937 / 1086.6937 Output Total 1900 / 1900 900 / 900 Balance -1420 / -1788 946.1622 / 186.6937 Weight 60 kg Intake: IV 606.6937 / 606.6937 Intralipid 20% Inj 250 ML @ 31. 250 / 250 25 mls/hr IV.SIG Q24H [facility] Rx#: [id number] Sodium Chloride 23.4% Inj 11 356.6937 / 356.6937 MEQ Sodium Acetate Inj 59 MEQ KCl Inj 40 MEQ Magnesium Chloride Inj 10 MEQ Calcium Chloride Inj 9 MEQ MVI-12 Inj 10 ML Folvite Inj 1 MG NovoLIN R Inj 30 UNITS In TPN Fluid 2 Liter 2,000 ML @ 65.009 mls/hr IV.SIG Q24H [facility] Rx#:[id number] Oral 480 / 480 480 / 480 Output: Urine 1900 / 1900 900 / 900 Other: Date of Last Bowel Movement 04/03/18 04/04/18 # Bowel Movements 1 2 Narrative: GENERAL: This is a well-nourished, well-developed patient, in no apparent distress. CARDIOVASCULAR: Regular rate and rhythm without murmurs, gallops, or rubs. RESPIRATORY: Clear to auscultation. Breath sounds equal bilaterally. No wheezes , rales, or rhonchi. GASTROINTESTINAL: Abdomen soft, non-tender, nondistended. Normal active bowel sounds MUSCULOSKELETAL: Extremities without clubbing, cyanosis, or edema. NEURO: Alert & Oriented x4 to person, place, time, situation. Moves all ext x4 Results - Labs CBC & Chem 7: 04/05/18 13:08 04/04/18 11:03 Laboratory Results - last 24 hr 04/03/18 04/03/18 04/03/18 10:35 16:41 21:30 WBC RBC Hgb Hct MCV MCH MCHC RDW Plt Count MPV Neut % (Auto) Lymph % (Auto) [place] % (Auto) Eos % (Auto) Baso % (Auto) Neut # (Auto) Lymph # (Auto) [place] # (Auto) Eos # (Auto) Baso # (Auto) WBC Differential Differential Comment Sodium Potassium Chloride Carbon Dioxide Anion Gap BUN Creatinine Estimated GFR POC Glucose 249 H Random Glucose Calcium Phosphorus Magnesium Nasal Screen MRSA (PCR) Mrsa detected Tacrolimus 12.8 04/03/18 04/04/18 04/04/18 21:35 07:59 11:03 WBC RBC Hgb Hct MCV MCH MCHC RDW Plt Count MPV Neut % (Auto) Lymph % (Auto) [place] % (Auto) Eos % (Auto) Baso % (Auto) Neut # (Auto) Lymph # (Auto) [place] # (Auto) Eos # (Auto) Baso # (Auto) WBC Differential Differential Comment Sodium 133 L Potassium 4.8 Chloride 93 L Carbon Dioxide 31.3 Anion Gap 9 BUN 34 H Creatinine 1.33 H Estimated GFR 41 L POC Glucose 318 H 264 H Random Glucose 364 H Calcium 9.4 D Phosphorus 2.2 L Magnesium 1.6 Nasal Screen MRSA (PCR) Tacrolimus 04/04/18 04/04/18 04/04/18 11:03 11:03 11:26 WBC 13.1 H RBC 3.18 L Hgb 8.9 L Hct 28.5 L MCV 89.8 D MCH 28.1 MCHC 31.3 L RDW 17.0 Plt Count 872 H MPV 8.9 Neut % (Auto) 78.9 H Lymph % (Auto) 8.0 L [place] % (Auto) 10.8 H Eos % (Auto) 1.5 Baso % (Auto) 0.8 Neut # (Auto) 10.3 H Lymph # (Auto) 1.0 [place] # (Auto) 1.4 H Eos # (Auto) 0.2 Baso # (Auto) 0.1 WBC Differential . Differential Comment Auto diff final Sodium Potassium Chloride Carbon Dioxide Anion Gap BUN Creatinine Estimated GFR POC Glucose 182 H Random Glucose Calcium Phosphorus Magnesium Nasal Screen MRSA (PCR) Tacrolimus 11.2 Assessment and Plan - Assessment (1) SIRS (systemic inflammatory response syndrome) Code(s): R65.10 - Systemic inflammatory response syndrome (SIRS) of non- infectious origin without acute organ dysfunction Status: Acute (2) H/O kidney transplant Code(s): Z94.0 - Kidney transplant status Status: Acute (3) Abdominal pain Code(s): R10.9 - Unspecified abdominal pain Status: Acute (4) On total parenteral nutrition (TPN) Code(s): Z78.9 - Other specified health status Status: Acute (5) Renal insufficiency Code(s): N28.9 - Disorder of kidney and ureter, unspecified Status: Acute (6) DM (diabetes mellitus) Code(s): E11.9 - Type 2 diabetes mellitus without complications Status: Acute - Plan Fever, SIRS- fever now has resolved. Chest x-ray was within normal limits, urinalysis showed no infection Blood cultures thus far negative antibiotics discontinued. ID following; previously d/w . rectal bleed will monitor H/H- GI consulted. will perform Sigmoidoscopy tomorrow. H/o renal transplant creatinine worsened today to 1.3 Transplanted in June [address] [facility], Dr. Louis Continue Prograf, adjusted by nephrology Appreciate transplant surgery consult Thrombocytopenia- has resolved and now the platelet count is trending up. Patient has a history of thrombophilia with numbers up to 1.2 million, initially trended downwards- l resumed Anagrelide - but the patient refused. Hematology consult appreciated. Abdominal pain- better. Patient has a history of large areas of bowel resection, multiple surgeries, pancreatectomy and splenectomy She allegedly has 260 cm of small bowel with no colon She has a history of gastroparesis related to adhesions and stenoses in the bowel, she takes TPN for this Dietitian consulted for TPN recs. continue to complaint of left flank pain no clear source by GI specialist will perform sigmoidoscopy tomorrow. Type 2 diabetes- Uncontrolled today again but she will be NPO at midnight. Patient's currently hyperglycemic related to infection and initially poorly controlled. initially started on insulin drip which was later on stopped; - now on regular insulin with TPN- along with accu-check with SSI. oral thrush; started on Nystatin DVT Prophylaxis Lovenox Code Status: Full code Discussed Condition With: Patient, Nurse Miss Dhillon, GI specialist Doctor Atul. Discharge Planning: not yet cleared by specialists.
--- NOTE | 2018-04-04 14:05 | P.PNTS ---
Subjective Interval history: Patient with some malaise, says nausea is bit worse today than prior days. says LUQ pain is a bit worse today than prior days. Physical Exam Vital signs: Vital Signs 04/03/18 13:49 04/03/18 13:50 04/03/18 15:00 Temperature 98.7 F Pulse Rate 75 77 Respiratory Rate 14 18 Blood Pressure 127/68 Pulse Oximetry 97 04/03/18 15:57 04/03/18 16:23 04/03/18 17:36 Temperature Pulse Rate 72 77 74 Respiratory Rate Blood Pressure Pulse Oximetry 04/03/18 17:39 04/03/18 19:00 04/03/18 20:00 Temperature 98.2 F Pulse Rate 78 72 Respiratory Rate 18 18 Blood Pressure 137/71 Pulse Oximetry 98 04/03/18 21:00 04/03/18 22:00 04/03/18 23:00 Temperature 98.1 F Pulse Rate 73 74 75 Respiratory Rate 16 Blood Pressure 123/64 Pulse Oximetry 99 04/04/18 00:00 04/04/18 01:00 04/04/18 02:00 Temperature Pulse Rate 70 76 70 Respiratory Rate Blood Pressure Pulse Oximetry 04/04/18 03:00 04/04/18 04:00 04/04/18 05:00 Temperature 98.4 F Pulse Rate 70 70 75 Respiratory Rate 14 Blood Pressure 138/70 Pulse Oximetry 96 04/04/18 06:00 04/04/18 07:00 04/04/18 08:00 Temperature 98.5 F Pulse Rate 76 82 80 Respiratory Rate 16 Blood Pressure 135/79 Pulse Oximetry 97 04/04/18 09:00 04/04/18 10:00 04/04/18 11:00 Temperature 98.6 F Pulse Rate 78 80 83 Respiratory Rate 16 Blood Pressure 134/72 Pulse Oximetry 96 04/04/18 12:00 04/04/18 13:00 Temperature Pulse Rate 81 77 Respiratory Rate Blood Pressure Pulse Oximetry Intake & Output 04/03/18 04/04/18 04/04/18 18:59 06:59 18:59 Intake Total 480 / 480 1086.6937 / 1086.6937 Output Total 1900 / 1900 900 / 900 Balance -1420 / -1830 444.8913 / 186.6937 Weight 60 kg Intake: IV 606.6937 / 606.6937 Intralipid 20% Inj 250 ML @ 31. 250 / 250 25 mls/hr IV.SIG Q24H [facility] Rx#: [id number] Sodium Chloride 23.4% Inj 11 356.6937 / 356.6937 MEQ Sodium Acetate Inj 59 MEQ KCl Inj 40 MEQ Magnesium Chloride Inj 10 MEQ Calcium Chloride Inj 9 MEQ MVI-12 Inj 10 ML Folvite Inj 1 MG NovoLIN R Inj 30 UNITS In TPN Fluid 2 Liter 2,000 ML @ 65.009 mls/hr IV.SIG Q24H [facility] Rx#:[id number] Oral 480 / 480 480 / 480 Output: Urine 1900 / 1900 900 / 900 Other: Date of Last Bowel Movement 04/03/18 04/04/18 # Bowel Movements 1 2 - Constitutional no acute distress - Routine HEENT Exam Head: Present: normocephalic, atraumatic Eye: Present: EOMI ENT: Present: mucous membranes moist - Routine Neck Exam Present: supple - Routine Respiratory Exam Present: rales Comments: few scattered bibasilar rales, loudest in RLL area - Routine Cardiovascular Exam Present: RRR, S1, S2 - Routine Abdominal Exam Present: soft, normoactive bowel sounds Comments: abd soft, min distended. Minimal left sided tenderness. No rebound/guarding. - Routine Extremities Exam Present: edema Comments: Subjectively right leg seems like it may have slight non-pitting edema. (? slight increase compared to left, although this is a very "soft call") - Routine Skin Exam Present: intact - Routine Neurological Exam Present: alert, oriented X3 - Detailed Neurological Exam: Coma Scale Verbal Response: Oriented - Routine Psychiatric Exam Present: normal affect, normal thought process Results - Labs CBC & Chem 7: 04/04/18 11:03 04/04/18 11:03 Laboratory Results - last 24 hr 04/03/18 04/03/18 04/03/18 10:35 16:41 21:30 WBC RBC Hgb Hct MCV MCH MCHC RDW Plt Count MPV Neut % (Auto) Lymph % (Auto) [place] % (Auto) Eos % (Auto) Baso % (Auto) Neut # (Auto) Lymph # (Auto) [place] # (Auto) Eos # (Auto) Baso # (Auto) WBC Differential Differential Comment Sodium Potassium Chloride Carbon Dioxide Anion Gap BUN Creatinine Estimated GFR POC Glucose 249 H Random Glucose Calcium Phosphorus Magnesium Nasal Screen MRSA (PCR) Mrsa detected Tacrolimus 12.8 04/03/18 04/04/18 04/04/18 21:35 07:59 11:03 WBC RBC Hgb Hct MCV MCH MCHC RDW Plt Count MPV Neut % (Auto) Lymph % (Auto) [place] % (Auto) Eos % (Auto) Baso % (Auto) Neut # (Auto) Lymph # (Auto) [place] # (Auto) Eos # (Auto) Baso # (Auto) WBC Differential Differential Comment Sodium 133 L Potassium 4.8 Chloride 93 L Carbon Dioxide 31.3 Anion Gap 9 BUN 34 H Creatinine 1.33 H Estimated GFR 41 L POC Glucose 318 H 264 H Random Glucose 364 H Calcium 9.4 D Phosphorus 2.2 L Magnesium 1.6 Nasal Screen MRSA (PCR) Tacrolimus 04/04/18 04/04/18 04/04/18 11:03 11:03 11:26 WBC 13.1 H RBC 3.18 L Hgb 8.9 L Hct 28.5 L MCV 89.8 D MCH 28.1 MCHC 31.3 L RDW 17.0 Plt Count 872 H MPV 8.9 Neut % (Auto) 78.9 H Lymph % (Auto) 8.0 L [place] % (Auto) 10.8 H Eos % (Auto) 1.5 Baso % (Auto) 0.8 Neut # (Auto) 10.3 H Lymph # (Auto) 1.0 [place] # (Auto) 1.4 H Eos # (Auto) 0.2 Baso # (Auto) 0.1 WBC Differential . Differential Comment Auto diff final Sodium Potassium Chloride Carbon Dioxide Anion Gap BUN Creatinine Estimated GFR POC Glucose 182 H Random Glucose Calcium Phosphorus Magnesium Nasal Screen MRSA (PCR) Tacrolimus 11.2 Assessment and Plan - Assessment (1) Fever Code(s): R50.9 - Fever, unspecified Status: Acute (2) Renal transplant recipient Code(s): Z94.0 - Kidney transplant status Status: Acute (3) DM (diabetes mellitus) Code(s): E11.9 - Type 2 diabetes mellitus without complications Status: Acute (4) Abdominal pain Code(s): R10.9 - Unspecified abdominal pain Status: Acute - Plan 57 yof with complex medical/surgical history s/p [place]URKT [facility] [place] in 06/[place]. Admitted with left flank pain and FUO. No obvious source of infection yet identified. Kidney function improved from admit then increased again today to 1.33. Blood sugars better controlled. UOP okay. Abd pain was improved from admit , although some acute on chronic pain still present, but patient says is slightly worse today. On diabetic clears-will make NPO for now. Await today's prograf level (was high yesterday, but unsure of accuracy of results due to timing of drug administration. Thrush being treated. On Nystatin S&S. Platelets continue to trend up - advised patient to let hem-onc resume anagrelide -she agreed. Appreciate hematology-onc input. Had maroon stool 2 days ago. None since. Appreciate GI input. Awaiting results of CMV/EBV PCR. Noted to have slight leukocytosis, couple with her complex history and clinical picture will get urine culture, repeat blood cultures, including form the central line, bilateral venous dopplers, and CT C/A/P to assess for pneumonia as well as to ensure there is no pneumatosis or other acute bowel pathology. Plan discussed with patient and the RN. Will plan to review the course with the transplant Surgeon at [facility], and update him once we have the results back ( potentially tomorrow) Will continue to follow. (1) Fever Qualifiers: Fever type: unspecified Qualified Code(s): R50.9 - Fever, unspecified
[2018-04-04] MEDS ORDERED: Diatrizoate Meglum/Diatrizoate Sod Liq 9 ML UDC PO ONE (14:15)
--- NOTE | 2018-04-04 15:09 | US ---
EXAM DATE: 04/04/2018 1:29 PM EDT AGE/SEX: 57 years / Female INDICATIONS: Bilateral leg edema. CLINICAL DATA: This is the patient's initial encounter. Patient reports that signs and symptoms have been present for 1 day and indicates a pain score of 0/10. MEDICAL/SURGICAL HISTORY: . Diabetes. Dumping syndrome. Femur fracture. Gastroparesis. GERD. Re nal failure. Liver function failure. DVT. Anticoagulant therapy, Lovenox. Hysterectomy. Splenectom y. Colectomy. Intestinal surgery. Oophorectomy. Pancreatectomy. Right transplant kidney. ORIF right l eg. COMPARISON: None. TECHNIQUE: Venous ultrasound of both lower extremities was performed from the inguinal ligament to t he proximal calf. Real-time, color Doppler and spectral tracing, compression and augmentation techni ques were used. FINDINGS: Right Leg: Normal compression of the deep venous system from the inguinal region to the proximal cele f. No echogenic clot is seen. Normal response of the venous system to augmentation and respiration. Left Leg: Echogenic noncompressible material which is nonocclusive seen involving the distal superfi cial femoral vein and within the peroneal vein. The remaining venous structures show normal venous wa veforms and augmentation. Other: None. CONCLUSION: 1. Nonocclusive small volume thrombus involving the distal superficial femoral vein and peroneal vei n on the left. This could relate to residual chronic thrombus from the patient's prior DVT. 2. No thrombus involving the right lower extremity. 3. Nothing to account for bilateral lower extremity swelling. Electronically signed by: Heladio Salazar MD 04/04/2018 3:08 PM EDT
--- NOTE | 2018-04-04 16:03 | P.PNONC ---
Subjective Interval history: Resting comfortably in bed. Reports abdominal pain. No further blood in bowels. Objective Vital Signs/Intake & Output: Vital Signs 04/03/18 16:23 04/03/18 17:36 04/03/18 17:39 Temperature Pulse Rate 77 74 Respiratory Rate 18 Blood Pressure Pulse Oximetry 04/03/18 19:00 04/03/18 20:00 04/03/18 21:00 Temperature 98.2 F Pulse Rate 78 72 73 Respiratory Rate 18 Blood Pressure 137/71 Pulse Oximetry 98 04/03/18 22:00 04/03/18 23:00 04/04/18 00:00 Temperature 98.1 F Pulse Rate 74 75 70 Respiratory Rate 16 Blood Pressure 123/64 Pulse Oximetry 99 04/04/18 01:00 04/04/18 02:00 04/04/18 03:00 Temperature 98.4 F Pulse Rate 76 70 70 Respiratory Rate 14 Blood Pressure 138/70 Pulse Oximetry 96 04/04/18 04:00 04/04/18 05:00 04/04/18 06:00 Temperature Pulse Rate 70 75 76 Respiratory Rate Blood Pressure Pulse Oximetry 04/04/18 07:00 04/04/18 08:00 04/04/18 09:00 Temperature 98.5 F Pulse Rate 82 80 78 Respiratory Rate 16 Blood Pressure 135/79 Pulse Oximetry 97 04/04/18 10:00 04/04/18 11:00 04/04/18 12:00 Temperature 98.6 F Pulse Rate 80 83 81 Respiratory Rate 16 Blood Pressure 134/72 Pulse Oximetry 96 04/04/18 13:00 04/04/18 14:00 04/04/18 15:00 Temperature 98.1 F Pulse Rate 77 75 76 Respiratory Rate 16 Blood Pressure 133/81 Pulse Oximetry 99 Intake & Output 04/03/18 04/04/18 04/04/18 18:59 06:59 18:59 Intake Total 480 / 480 1086.6937 / 1086.6937 Output Total 1900 / 1900 900 / 900 Balance -1420 / -0424 216.8511 / 186.6937 Weight 60 kg Intake: IV 606.6937 / 606.6937 Intralipid 20% Inj 250 ML @ 31. 250 / 250 25 mls/hr IV.SIG Q24H [facility] Rx#: [id number] Sodium Chloride 23.4% Inj 11 356.6937 / 356.6937 MEQ Sodium Acetate Inj 59 MEQ KCl Inj 40 MEQ Magnesium Chloride Inj 10 MEQ Calcium Chloride Inj 9 MEQ MVI-12 Inj 10 ML Folvite Inj 1 MG NovoLIN R Inj 30 UNITS In TPN Fluid 2 Liter 2,000 ML @ 65.009 mls/hr IV.SIG Q24H [facility] Rx#:[id number] Oral 480 / 480 480 / 480 Output: Urine 1900 / 1900 900 / 900 Other: Date of Last Bowel Movement 04/03/18 04/04/18 # Bowel Movements 1 2 Result Diagrams: 04/04/18 11:03 04/04/18 11:03 Laboratory Results: Laboratory Results - last 24 hr 04/03/18 04/03/18 04/03/18 16:41 21:30 21:35 WBC RBC Hgb Hct MCV MCH MCHC RDW Plt Count MPV Neut % (Auto) Lymph % (Auto) Lawrence % (Auto) Eos % (Auto) Baso % (Auto) Neut # (Auto) Lymph # (Auto) [place] # (Auto) Eos # (Auto) Baso # (Auto) WBC Differential Differential Comment Sodium Potassium Chloride Carbon Dioxide Anion Gap BUN Creatinine Estimated GFR POC Glucose 249 H 318 H Random Glucose Calcium Phosphorus Magnesium Nasal Screen MRSA (PCR) Mrsa detected Tacrolimus 04/04/18 04/04/18 04/04/18 07:59 11:03 11:03 WBC RBC Hgb Hct MCV MCH MCHC RDW Plt Count MPV Neut % (Auto) Lymph % (Auto) Lawrence % (Auto) Eos % (Auto) Baso % (Auto) Neut # (Auto) Lymph # (Auto) Lawrence # (Auto) Eos # (Auto) Baso # (Auto) WBC Differential Differential Comment Sodium 133 L Potassium 4.8 Chloride 93 L Carbon Dioxide 31.3 Anion Gap 9 BUN 34 H Creatinine 1.33 H Estimated GFR 41 L POC Glucose 264 H Random Glucose 364 H Calcium 9.4 D Phosphorus 2.2 L Magnesium 1.6 Nasal Screen MRSA (PCR) Tacrolimus 11.2 04/04/18 04/04/18 11:03 11:26 WBC 13.1 H RBC 3.18 L Hgb 8.9 L Hct 28.5 L MCV 89.8 D MCH 28.1 MCHC 31.3 L RDW 17.0 Plt Count 872 H MPV 8.9 Neut % (Auto) 78.9 H Lymph % (Auto) 8.0 L Lawrence % (Auto) 10.8 H Eos % (Auto) 1.5 Baso % (Auto) 0.8 Neut # (Auto) 10.3 H Lymph # (Auto) 1.0 Lawrence # (Auto) 1.4 H Eos # (Auto) 0.2 Baso # (Auto) 0.1 WBC Differential . Differential Comment Auto diff final Sodium Potassium Chloride Carbon Dioxide Anion Gap BUN Creatinine Estimated GFR POC Glucose 182 H Random Glucose Calcium Phosphorus Magnesium Nasal Screen MRSA (PCR) Tacrolimus Imaging Studies: Impressions Venous Doppler Study 04/04/18 13:29 CONCLUSION: 1. Nonocclusive small volume thrombus involving the distal superficial femoral vein and peroneal vein on the left. This could relate to residual chronic thrombus from the patient's prior DVT. 2. No thrombus involving the right lower extremity. 3. Nothing to account for bilateral lower extremity swelling. Medications: Active Medications Generic Name Dose Route Start Last Admin Trade Name Freq PRN Reason Stop Dose Admin Lipase/Protease/Amylase 1 cap 03/28/18 08:00 04/04/18 11:[address] 24/76/120 PO 1 cap TIDAC [facility] Administration Anagrelide HCl 0.5 mg 03/27/18 23:30 04/04/18 11:15 Agrylin PO 0.5 mg Q12H [facility] Administration Atorvastatin Calcium 20 mg 03/28/18 09:00 04/04/18 08:46 Lipitor PO 20 mg DAILY [facility] Administration Azathioprine 100 mg 03/28/18 09:00 03/29/18 10:16 Imuran PO Not Given DAILY [facility] Benzocaine/Menthol 1 lozenge 04/01/18 10:00 04/04/18 05:19 Chloraseptic Sore Throat Lozenge BUCCAL 1 lozenge Q4H PRN Administration sore throat Calcium Carbonate 500 mg 03/28/18 09:00 04/04/18 08:46 Oscal PO 500 mg BID [facility] Administration Calcium Carbonate 500 mg 03/29/18 08:16 04/04/18 03:49 Tums Chew CHEW 500 mg Q2H PRN Administration DYSPEPSIA Carvedilol 12.5 mg 03/28/18 09:00 04/04/18 08:46 Coreg PO 12.5 mg BID [facility] Administration Chlorhexidine Gluconate 3 pack 03/31/18 04:00 04/04/18 04:28 Chlorhexidine 2% Cloth TOPICAL 04/05/18 03:59 Not Given DAILY@0400 [facility] Clonidine HCl 0.1 mg 03/29/18 08:15 03/30/18 16:24 Catapres PO 0.1 mg Q6H PRN Administration SBP>160, DBP>90 Diphenoxylate HCl/Atropine 1 tab 03/28/18 09:00 04/04/18 12:23 Lomotil PO 1 tab TID [facility] Administration Enoxaparin Sodium 40 mg 03/28/18 09:00 04/02/18 10:25 Lovenox Inj SQ 40 mg DAILY [facility] Administration Heparin Sodium (Porcine) 0 unit 03/28/18 01:25 03/28/18 05:44 Heparin Central Flush IV.FLUSH 250 unit PRN PRN Administration Flush each lumen Heparin Sodium (Porcine) 0 unit 03/28/18 09:00 04/04/18 08:48 Heparin Central Flush IV.FLUSH Not Given DAILY [facility] Hydroxyzine HCl 50 mg 04/03/18 03:11 04/04/18 11:22 Vistaril Inj IM 50 mg Q6H PRN Administration pruritis Fat Emulsion Intravenous 250 mls @ 31.25 mls/hr 03/30/18 20:00 04/04/18 04:28 Intralipid 20% Inj IV.SIG Infused Q24H [facility] Infusion Dextrose/Sodium Chloride 1,000 mls @ 200 mls/hr 03/30/18 11:30 04/04/18 11:16 D5w/Normal Saline Inj IV.CONT Not Given .Q5H [facility] Sodium Chloride 1,000 mls @ 250 mls/hr 03/30/18 11:30 04/04/18 11:16 Ns Inj IV.CONT Not Given .Q4H [facility] Potassium Chloride 20 meq in 100 mls @ 100 mls/hr 03/30/18 11:28 04/01/18 14: 57 Kcl 20 Meq Premix Inj IV.SIG Infused Q1H PRN Infusion for K+ 4.5 to 5 Sodium Chloride 11 meq/ Sodium 2,059.6937 mls @ 65.009 mls/hr 03/31/18 20:00 04/03/18 19:41 Acetate 59 meq/ Potassium IV.SIG 65.01 mls/hr Chloride 40 meq/ Magnesium Q24H [facility] Administration Chloride 10 meq/ Calcium Chloride 9 meq/ Multivitamins 10 ml/ Folic Acid 1 mg/ Insulin Human Regular 30 units / Amino Acids/Electrolytes/ Dextrose Insulin Human Regular 0 units 03/31/18 12:00 04/04/18 11:26 Novolin R Correctional Sugar Inj SQ 1 units ACHS [facility] Administration Protocol Morphine Sulfate 4 mg 03/30/18 09:47 04/04/18 15:59 Morphine Inj IV.PUSH 4 mg Q2H PRN Administration PAIN SCALE 6 TO 10 Nystatin 5 ml 04/02/18 10:00 04/04/18 12:19 Mycostatin Liq SWISH-SWAL 5 ml QID [facility] Administration Ondansetron HCl 4 mg 04/01/18 00:33 04/04/18 11:22 Zofran Inj IV.PUSH 4 mg Q6H PRN Administration NAUSEA OR VOMITING Pantoprazole Sodium 40 mg 03/28/18 09:00 04/04/18 08:46 Protonix PO 40 mg BID [facility] Administration Potassium Phos/Sodium Phos 250 mg 04/03/18 13:00 04/04/18 12:19 K-Phos Neutral PO 250 mg TID [facility] Administration Prednisone 10 mg 03/28/18 09:00 04/04/18 08:46 Deltasone PO 10 mg DAILY [facility] Administration Promethazine HCl 25 mg 03/29/18 12:06 04/03/18 02:34 Phenergan PO 25 mg Q4H PRN Administration NAUSEA OR VOMITING Senna/Docusate Sodium 1 tab 03/28/18 09:00 04/04/18 08:45 Saray-Colace PO 1 tab BID [facility] Administration Sodium Chloride 0 ml 03/28/18 09:00 04/04/18 08:48 Ns Flush IV.FLUSH 10 ml DAILY [facility] Administration Sodium Chloride 0 ml 03/28/18 01:25 03/28/18 05:45 Ns Flush IV.FLUSH 10 ml PRN PRN Administration FLUSH AFTER USING IV ACCESS Tacrolimus 4 mg 03/27/18 23:30 04/04/18 11:15 Prograf PO 4 mg Q12H [facility] Administration Objective Remarks: GENERAL: Well-nourished, well-developed patient. SKIN: Warm and dry. HEAD: Normocephalic. EYES: No scleral icterus. No injection or drainage. NECK: Supple, trachea midline. No JVD or lymphadenopathy. LYMPHATIC: No adenopathy. CARDIOVASCULAR: Regular rate and rhythm without murmurs. RESPIRATORY: Breath sounds equal bilaterally. No accessory muscle use. GASTROINTESTINAL: Abdomen soft, non-tender, nondistended. EXTREMITIES: No cyanosis, or edema. MUSCULOSKELETAL: Adequate muscle tone. NEUROLOGICAL: No obvious focal deficit. Awake, alert, and oriented x3. PSYCHIATRIC: Appropriate mood and affect; insight and judgment normal. Assessment/Plan - Plan 1. thrombocytosis: work up at [facility] and per outside notes is reactive. On Wednesday will request JAK2, CALR, MPL studies from this institution. Reactive causes can include infection, inflammation, recent transplant. Platelet count rising. Patient declines anagrelide. 2. history of VTE: on lovenox 60 mg subq BID which is currently being held due to GIB. 3. GIB: GI team following. Small decline in hemoglobin. 4. Anticoagulation: risks vs benefits of anticoagulation in a patient with a history of recurrent VTE and now GIB. Would restart anticoagulation as soon as possible. If patient is unable to tolerate anticoagulation would consider filter placement.
--- NOTE | 2018-04-04 16:37 | P.PNNP ---
Subjective Interval history: Patient is feeling tired some nausea present Physical Exam Vital signs: Vital Signs 04/03/18 17:36 04/03/18 17:39 04/03/18 19:00 Temperature 98.2 F Pulse Rate 74 78 Respiratory Rate 18 18 Blood Pressure 137/71 Pulse Oximetry 98 04/03/18 20:00 04/03/18 21:00 04/03/18 22:00 Temperature Pulse Rate 72 73 74 Respiratory Rate Blood Pressure Pulse Oximetry 04/03/18 23:00 04/04/18 00:00 04/04/18 01:00 Temperature 98.1 F Pulse Rate 75 70 76 Respiratory Rate 16 Blood Pressure 123/64 Pulse Oximetry 99 04/04/18 02:00 04/04/18 03:00 04/04/18 04:00 Temperature 98.4 F Pulse Rate 70 70 70 Respiratory Rate 14 Blood Pressure 138/70 Pulse Oximetry 96 04/04/18 05:00 04/04/18 06:00 04/04/18 07:00 Temperature 98.5 F Pulse Rate 75 76 82 Respiratory Rate 16 Blood Pressure 135/79 Pulse Oximetry 97 04/04/18 08:00 04/04/18 09:00 04/04/18 10:00 Temperature Pulse Rate 80 78 80 Respiratory Rate Blood Pressure Pulse Oximetry 04/04/18 11:00 04/04/18 12:00 04/04/18 13:00 Temperature 98.6 F Pulse Rate 83 81 77 Respiratory Rate 16 Blood Pressure 134/72 Pulse Oximetry 96 04/04/18 14:00 04/04/18 15:00 04/04/18 16:00 Temperature 98.1 F Pulse Rate 75 76 74 Respiratory Rate 16 Blood Pressure 133/81 Pulse Oximetry 99 Intake & Output 04/03/18 04/04/18 04/04/18 18:59 06:59 18:59 Intake Total 480 / 480 1086.6937 / 1086.6937 Output Total 1900 / 1900 900 / 900 Balance -1420 / -2689 488.4986 / 186.6937 Weight 60 kg Intake: IV 606.6937 / 606.6937 Intralipid 20% Inj 250 ML @ 31. 250 / 250 25 mls/hr IV.SIG Q24H [facility] Rx#: [id number] Sodium Chloride 23.4% Inj 11 356.6937 / 356.6937 MEQ Sodium Acetate Inj 59 MEQ KCl Inj 40 MEQ Magnesium Chloride Inj 10 MEQ Calcium Chloride Inj 9 MEQ MVI-12 Inj 10 ML Folvite Inj 1 MG NovoLIN R Inj 30 UNITS In TPN Fluid 2 Liter 2,000 ML @ 65.009 mls/hr IV.SIG Q24H [facility] Rx#:[id number] Oral 480 / 480 480 / 480 Output: Urine 1900 / 1900 900 / 900 Other: Date of Last Bowel Movement 04/03/18 04/04/18 # Bowel Movements 1 2 Narrative: GENERAL: This is a well-nourished, well-developed patient, in no apparent distress. CARDIOVASCULAR: Regular rate and rhythm without murmurs, gallops, or rubs. RESPIRATORY: Clear to auscultation. Breath sounds equal bilaterally. No wheezes , rales, or rhonchi. GASTROINTESTINAL: Abdomen soft, non-tender, nondistended. Normal active bowel sounds MUSCULOSKELETAL: Extremities without clubbing, cyanosis, or edema. NEURO: Alert & Oriented x4 to person, place, time, situation. Moves all ext x4 Assessment and Plan - Assessment (1) Acute renal failure Code(s): N17.9 - Acute kidney failure, unspecified Status: Acute (2) Thrombocytopenia Code(s): D69.6 - Thrombocytopenia, unspecified Status: Acute (3) Fever Code(s): R50.9 - Fever, unspecified Status: Acute Qualifiers: Qualified Code(s): R50.9 - Fever, unspecified (4) Renal transplant recipient Code(s): Z94.0 - Kidney transplant status Status: Acute (5) On total parenteral nutrition (TPN) Code(s): Z78.9 - Other specified health status Status: Acute (6) DM (diabetes mellitus) Code(s): E11.9 - Type 2 diabetes mellitus without complications Status: Acute (7) Abdominal pain Code(s): R10.9 - Unspecified abdominal pain Status: Acute - Plan Patient has acute renal failure with baseline creatinine around 0.9 currently at 1.2, Phosphorus and magnesium were replaced Doing better creatinine fluctuates 1.3 not Thrush nystatin added Thrombocytosis platelets are climbing up hematology following sigmoidoscopy Blood glucose fluctuate Monitor tacrolimus level Follow BMP Avoid nephrotoxins
[2018-04-04 16:49] LABS: Bilirubin,Urine Negative (Negative); Clarity,Urine Clear (Clear); Color,Urine Straw (Yellw/Straw); Glucose,Urine (UA) 50 mg/dL (Negative); Leukocyte Esterase,Urine Negative (Negative); Mucus,Urine Few /lpf (Occasional); Nitrite,Urine Negative (Negative); Specific Gravity,Urine 1.004 (1.002-1.035); Squamous Epithelial Cell,Urine <1 /hpf (0-5)
--- NOTE | 2018-04-04 20:24 | CT ---
EXAM DATE: 04/04/2018 4:20 PM EDT AGE/SEX: 57 years / Female INDICATIONS: Painful respiration. CLINICAL DATA: This is the patient's initial encounter. Patient reports that signs and symptoms have been present for 1 day and indicates a pain score of 6/10. MEDICAL/SURGICAL HISTORY: Renal failure, chronic. Diabetes. Gastroesophageal reflux disease. Marjan l transplant. Splenectomy. Hysterectomy. Oophorectomy, pancreatectomy. RADIATION DOSE: 7.68 CTDI (mGy) ; Combined studies COMPARISON: [facility] [place], CT ABDOMEN & PELVIS W/O CONTRAST, 03/27/2018. . TECHNIQUE: Multiple contiguous axial images were obtained through the chest without contrast. Image s were obtained in suspended respiration using multiple row detector helical technique. Using automa joaquín exposure control and adjustment of the mA and/or kV according to patient size, radiation dose was kept as low as reasonably achievable to obtain optimal diagnostic quality images. DICOM format imag e data is available electronically for review and comparison. FINDINGS: Comparison is abdomen CT from March 27. At the lung bases linear subsegmental atelectasis has inc reased slightly since the prior examination. No significant pleural or pericardial effusion. Upper igor ngs are relatively clear. Right-sided central catheter tip is at the cavoatrial junction. Again seen is pneumobilia within the liver. Previously noted small low-attenuation lesions in the diego er are stable. Inferior vena cava filter is present. No acute bony abnormality. CONCLUSION: 1. Increase in subsegmental basilar atelectasis since March 27. No new effusion. Upper lungs ravi ar. No new adenopathy. Electronically signed by: Zaki Arora MD 04/04/2018 8:23 PM EDT
[2018-04-04] MEDS: [UNRECOGNIZED DRUG - OTHER] IV.SIG SCH ×9 (20:25)
[2018-04-04] MEDS: Acetaminophen 325 MG Tablet PO PRN (20:26)
--- NOTE | 2018-04-04 20:33 | CT ---
EXAM DATE: 04/04/2018 4:20 PM EDT AGE/SEX: 57 years / Female INDICATIONS: Left upper quadrant pain. CLINICAL DATA: This is the patient's initial encounter. Patient reports that signs and symptoms have been present for 2 days and indicates a pain score of 7/10. MEDICAL/SURGICAL HISTORY: Renal failure, chronic. Diabetes. Gastroesophageal reflux disease. Dumping syndrome. Hysterectomy. Renal transplant. Splenectomy. Pancreatectomy, oophorectomy. RADIATION DOSE: 7.68 CTDI (mGy) ; Combined studies [place] [facility] [place]AST[place] 03/27/2018. . TECHNIQUE: Multiple contiguous axial images were obtained through the abdomen. Images were obtained using multiple row detector helical technique. Using automated exposure control and adjustment of the mA and/or kV according to patient size, radiation dose was kept as low as reasonably achievable to o btain optimal diagnostic quality images. DICOM format image data is available electronically for rev iew and comparison. FINDINGS: Lower Lungs: Bibasilar atelectasis. No evidence of pleural effusion. Liver: Cholecystectomy and prominent pneumobilia similar in appearance to prior CT. Again noted are m ultiple round low density lesions throughout the right lobe of the liver. No new focal hepatic lesion s for noncontrast technique. Spleen: Surgically absent. Pancreas: Grossly unremarkable. Kidneys: Bilateral nephrectomy. Stable appearance to the transplant in the right lower quadrant with stable prominence of the collecting system. Adrenal Glands: Unremarkable. Aorta: The aorta and proximal iliac vessels are grossly unremarkable without aneurysmal dilation. Bowel/Mesentery: Moderate distention of the stomach is a new finding from prior examination. No dila joaquín loops of small bowel. Anastomosis suture in left lower quadrant. Abdominal Wall: Intact. Retroperitoneum: IVC filter in place. Bladder: Contours are smooth. Reproductive Organs: Hysterectomy. Inguinal: The inguinal region is unremarkable without evidence of adenopathy. Bony Structures: Stable cortical irregularities to the lateral left iliac wing. No new findings. Dif fuse osteopenia.. CONCLUSION: 1. The only new findings when compared to prior CT on 03/27/2018 include distention of the stomach an d mild bibasilar atelectasis. Electronically signed by: Heladio Campuzano MD 04/04/2018 8:31 PM EDT
[2018-04-04] MEDS ORDERED: Insulin Detemir Inj 1,000 UNIT/10 ML Vial SQ SCH (21:00)
[2018-04-05] MEDS: Acetaminophen 325 MG Tablet PO PRN ×2 (00:15→13:17)
[2018-04-05] MEDS: Dextrose 5%/NaCl 0.9% Inj 1,000 ML IV.CONT SCH ×5 (01:34→22:59)
[2018-04-05] MEDS: Sod Chloride 0.9% Inj 1,000 ML IV.CONT SCH ×6 (02:56→23:28)
[2018-04-05] MEDS: Morphine Inj 4 MG/ML Vial IV.PUSH PRN ×3 (03:24→13:17)
[2018-04-05] MEDS: Insulin NovoLIN Regular Correctional Sugar Inj SQ SCH ×4 (08:23→21:15)
[2018-04-05] MEDS: Carvedilol 12.5 MG Tablet PO SCH ×2 (08:35→20:08)
[2018-04-05] MEDS: Nystatin Liq 500,000 UNIT/5 ML UDC SWISH-SWAL SCH ×4 (08:35→20:08)
[2018-04-05] MEDS: Lipase/Protease/Amylase 24/76/120 DR Capsule PO SCH ×3 (08:35→16:19)
[2018-04-05] MEDS: Diphenoxylate/Atropine 2.5/0.025 MG Tablet PO SCH ×3 (08:35→17:08)
[2018-04-05] MEDS: Senna/Docusate Sodium 8.6/50 MG Tablet PO SCH ×2 (08:35→20:08)
[2018-04-05] MEDS: Potassium Phos/Sodium Phos 250 MG Tablet PO SCH ×3 (08:35→17:08)
[2018-04-05] MEDS: Calcium Carbonate 500 MG Tablet PO SCH ×2 (08:35→20:08)
[2018-04-05] MEDS: predniSONE 10 MG Tablet PO SCH (08:35)
[2018-04-05] MEDS: Heparin Central Flush 100 UNIT/ML 5 ML Vial IV.FLUSH SCH (08:36)
[2018-04-05] MEDS: Enoxaparin Inj 40 MG/0.4 ML Syringe SQ SCH (08:42)
[2018-04-05] MEDS: Insulin NovoLIN Regular Correctional Sugar Inj SQ ONE ×2 (11:05→13:53)
[2018-04-05] MEDS ORDERED: Lidocaine PF 1% Inj 5 ML Syringe OTHER ONE (11:56)
--- NOTE | 2018-04-05 12:02 | P.PNTS ---
Subjective Interval history: No new c/o. Actually feels better today. Nausea and abd pain decreased. Does have a headache though Physical Exam Vital signs: Vital Signs 04/04/18 12:00 04/04/18 13:00 04/04/18 14:00 Temperature Pulse Rate 81 77 75 Respiratory Rate Blood Pressure Pulse Oximetry 04/04/18 15:00 04/04/18 16:00 04/04/18 17:00 Temperature 98.1 F Pulse Rate 76 74 72 Respiratory Rate 16 Blood Pressure 133/81 Pulse Oximetry 99 04/04/18 18:00 04/04/18 19:00 04/04/18 20:00 Temperature 98.3 F Pulse Rate 69 72 73 Respiratory Rate 16 Blood Pressure 138/68 Pulse Oximetry 97 04/04/18 21:00 04/04/18 22:00 04/04/18 23:00 Temperature 98.5 F Pulse Rate 70 73 74 Respiratory Rate 16 Blood Pressure 133/67 Pulse Oximetry 97 04/05/18 00:00 04/05/18 00:22 04/05/18 01:00 Temperature Pulse Rate 74 75 Respiratory Rate 16 Blood Pressure Pulse Oximetry 04/05/18 02:00 04/05/18 03:00 04/05/18 03:36 Temperature 98.5 F Pulse Rate 73 68 Respiratory Rate 16 16 Blood Pressure 138/72 Pulse Oximetry 97 04/05/18 04:00 04/05/18 05:00 04/05/18 06:00 Temperature Pulse Rate 70 73 72 Respiratory Rate Blood Pressure Pulse Oximetry 04/05/18 07:00 04/05/18 08:00 04/05/18 09:00 Temperature 98.2 F Pulse Rate 70 72 68 Respiratory Rate 16 Blood Pressure 126/61 Pulse Oximetry 98 04/05/18 10:00 04/05/18 11:00 Temperature Pulse Rate 77 72 Respiratory Rate Blood Pressure Pulse Oximetry Intake & Output 04/04/18 04/05/18 04/05/18 18:59 06:59 18:59 Intake Total 1300 / 1300 2549.6937 / 2549.6937 Output Total 1500 / 1500 1200 / 1200 Balance -200 / -200 1349.6937 / 1349.6937 Weight 62.5 kg Intake: IV 2309.6937 / 2309.6937 Intralipid 20% Inj 250 ML @ 31. 250 / 250 25 mls/hr IV.SIG Q24H [facility] Rx#: [id number] Sodium Chloride 23.4% Inj 11 2058.6937 / 2058.6937 MEQ Sodium Acetate Inj 59 MEQ KCl Inj 40 MEQ Magnesium Chloride Inj 10 MEQ Calcium Chloride Inj 9 MEQ MVI-12 Inj 10 ML Folvite Inj 1 MG NovoLIN R Inj 30 UNITS In TPN Fluid 2 Liter 2,000 ML @ 65.009 mls/hr IV.SIG Q24H [facility] Rx#:[id number] Oral 1300 / 1300 240 / 240 Output: Urine 1500 / 1500 1200 / 1200 - Constitutional no acute distress - Routine HEENT Exam Head: Present: normocephalic, atraumatic ENT: Present: mucous membranes moist - Routine Neck Exam Present: supple - Routine Respiratory Exam Present: CTA bilaterally - Routine Cardiovascular Exam Present: RRR, S1, S2 - Routine Abdominal Exam Present: soft, normoactive bowel sounds Comments: decreased left sided abd pain - Routine Extremities Exam Present: pulses intact Comments: soft NT/ no edema noted. - Routine Skin Exam Present: intact - Routine Neurological Exam Present: alert, oriented X3 - Detailed Neurological Exam: Coma Scale Verbal Response: Oriented - Routine Psychiatric Exam Present: normal affect, normal thought process Results - Labs CBC & Chem 7: 04/04/18 11:03 04/04/18 11:03 Laboratory Results - last 24 hr 04/04/18 04/04/18 04/04/18 11:03 11:03 16:05 Sodium 133 L Potassium 4.8 Chloride 93 L Carbon Dioxide 31.3 Anion Gap 9 BUN 34 H Creatinine 1.33 H Estimated GFR 41 L POC Glucose Random Glucose 364 H Calcium 9.4 D Phosphorus 2.2 L Magnesium 1.6 Urine Color Straw Urine Clarity Clear Urine pH 7.0 Ur Specific [place] 1.004 Urine Protein Negative Urine Glucose (UA) 50 Urine Ketones Negative Urine Occult Blood Small H Urine Nitrate Negative Urine Bilirubin Negative Urine Urobilinogen Less than 2 Ur Leukocyte Esterase Negative Urine WBC 1 Ur Squamous Epith Cells <1 Urine Mucus Few H Micro UA Comment Culture not ind Ur Microscopic Review Not Reportable Urine Culture Comments Culture not ind Tacrolimus 11.2 04/04/18 04/04/18 04/05/18 16:12 20:29 10:55 Sodium Potassium Chloride Carbon Dioxide Anion Gap BUN Creatinine Estimated GFR POC Glucose 220 H 228 H 302 H Random Glucose Calcium Phosphorus Magnesium Urine Color Urine Clarity Urine pH Ur Specific [place] Urine Protein Urine Glucose (UA) Urine Ketones Urine Occult Blood Urine Nitrate Urine Bilirubin Urine Urobilinogen Ur Leukocyte Esterase Urine WBC Ur Squamous Epith Cells Urine Mucus Micro UA Comment Ur Microscopic Review Urine Culture Comments Tacrolimus Microbiology 04/04/18 14:11 Blood - Line Aerobic Blood Culture - Preliminary No growth in 1 day 04/04/18 14:11 Blood - Line Anaerobic Blood Culture - Preliminary No growth in 1 day 04/04/18 14:15 Blood - Peripheral Aerobic Blood Culture - Preliminary No growth in 1 day 04/04/18 14:15 Blood - Peripheral Anaerobic Blood Culture - Preliminary No growth in 1 day - Imaging Impressions Abdomen/Pelvis CT 04/04/18 00:00 CONCLUSION: 1. The only new findings when compared to prior CT on 03/27/2018 include distention of the stomach and mild bibasilar atelectasis. Chest CT 04/04/18 00:00 CONCLUSION: 1. Increase in subsegmental basilar atelectasis since March 27. No new effusion. Upper lungs clear. No new adenopathy. Venous Doppler Study 04/04/18 13:29 CONCLUSION: 1. Nonocclusive small volume thrombus involving the distal superficial femoral vein and peroneal vein on the left. This could relate to residual chronic thrombus from the patient's prior DVT. 2. No thrombus involving the right lower extremity. 3. Nothing to account for bilateral lower extremity swelling. Assessment and Plan - Assessment (1) Fever Code(s): R50.9 - Fever, unspecified Status: Acute (2) Renal transplant recipient Code(s): Z94.0 - Kidney transplant status Status: Acute (3) DM (diabetes mellitus) Code(s): E11.9 - Type 2 diabetes mellitus without complications Status: Acute (4) Abdominal pain Code(s): R10.9 - Unspecified abdominal pain Status: Acute - Plan 57 yof with complex medical/surgical history s/p [place] in [place] in 06/2017. Admitted with left flank pain and FUO. No obvious source of infection yet identified. Kidney function improved from admit then increased again today to 1.33. Blood sugars better controlled. UOP okay. Abd pain and nausea improved from yesterday. Await today's prograf level (was high yesterday, but unsure of accuracy of results due to timing of drug administration). Will decrease dose if level remains elevated.. Thrush being treated. On Nystatin S&S. Platelets have trended up since admit - advised patient to let hem-onc resume anagrelide - she agreed. Appreciate hematology-onc input. Had maroon stool 3 days ago. None since. EGD and Flex sig to be done today. Appreciate GI input. Awaiting results of CMV/EBV PCR. Noted to have slight leukocytosis - CT C/A/P unrevealing. Will await results of endoscopy, echo, labs, and other studies. Plan discussed with patient and the RN. Will continue to follow. (1) Fever Qualifiers: Fever type: unspecified Qualified Code(s): R50.9 - Fever, unspecified
--- NOTE | 2018-04-05 12:25 | GIPROC ---
[facility] [address] [facility]. [facility], [address] EGD PROCEDURE REPORT EXAM DATE: 04/05/2018 PATIENT NAME: Moni Bailey MR #: [id number] BIRTHDATE: 1960 ATTENDING: Miller Pollard MD ORDER #: [id number] [employer] SALES ASSOCIATE: Jaja Menezes RN STATUS: inpatient INDICATIONS: The patient is a 57 yr old female here for an EGD due to epigastric abdominal pain and hematochezia PROCEDURE PERFORMED: EGD, diagnostic MEDICATIONS: None and Per Anesthesia. TOPICAL ANESTHETIC: CONSENT: The patient understands the risks and benefits of the procedure and understands that these risks include, but are not limited to: sedation, allergic reaction, infection, perforation and/or bleeding. Alternative means of evaluation and treatment include, among others: physical exam, x-rays, and/or surgical intervention. The patient elects to proceed with this endoscopic procedure. medical equipment was checked for proper function. Hand hygiene and appropriate measures for infection prevention was taken. After the risks, benefits and alternatives of the procedure were thoroughly explained, Informed consent was verified, confirmed and timeout was successfully executed by the treatment team. The patient was anesthetized with topical anesthesia and the EC-3490Li (Pedi C) endoscope was introduced through the mouth and advanced to the second portion of the duodenum. Retroflexed views revealed no abnormalities The gastroscope was then slowly withdrawn and removed. ESOPHAGUS: There was LA Class A esophagitis noted. STOMACH: Approx 450cc of fluid retained in the stomach. Suctioned. Gastro -jujenostomy identified. Small bowel mucosa normal. There was a large amount of residual food seen in the gastric body. Due to the residual food, complete mucosal examination could not be performed. DUODENUM: The duodenal mucosa appeared normal. ADVERSE EVENTS: There were no complications. IMPRESSIONS: 1. There was LA Class A esophagitis noted 2. Approx 450cc of fluid retained in the stomach. Suctioned. Gastro -jujenostomy identified. Small bowel mucosa normal 3. Food residue in the gastric body 4. Normal duodenal mucosa 5. Retroflexed views revealed no abnormalities RECOMMENDATIONS: 1. Anti-reflux regimen 2. Continue PPI 3. Liquid diet PATIENT CONDITION: stable DISPOSITION: Inpatient REPEAT EXAM: Return as needed for EGD Miller Pollard MD eSigned: Miller Pollard MD 04/05/2018 12:25 PM cc: PATIENT NAME: Moni Bailey MR#: [id number]
--- NOTE | 2018-04-05 12:30 | GIPROC ---
[facility] [address] [facility]. [facility], [address] FLEXIBLE SIGMOIDOSCOPY PROCEDURE REPORT EXAM DATE: 04/05/2018 PATIENT NAME: Moni Bailey MR #: [id number] BIRTHDATE: 1960 ORDER #: [id number] ATTENDING: Miller Pollard MD WAREHOUSE TRAINER: Jaja Menezes RN STATUS: inpatient INDICATIONS: The patient is a 57 yr old female here for a flexible sigmoidoscopy due to abdominal pain, generalized and chronic diarrhea PROCEDURE PERFORMED: Flexible Sigmoidoscopy with biopsy MEDICATIONS: None and Per Anesthesia. ESTIMATED BLOOD LOSS: None CONSENT: The patient understands the risks and benefits of the procedure and understands that these risks include, but are not limited to: sedation, allergic reaction, infection, perforation and/or bleeding. Alternative means of evaluation and treatment include, among others: physical exam, x-rays, and/or surgical intervention. The patient elects to proceed with this endoscopic procedure. medical equipment was checked for proper function. Hand hygiene and appropriate measures for infection prevention was taken. After the risks, benefits and alternatives of the procedure were thoroughly explained, Informed consent was verified, confirmed and timeout was successfully executed by the treatment team. A digital rectal exam revealed external hemorrhoids The Pentax EC-3490Li endoscope was introduced through the anus and advanced to the surgical anastomosis. The prep was suboptimal. The instrument was then slowly withdrawn as the colon was fully examined. COLON FINDINGS: There was evidence of a hyperemic appearing and inflamed prior surgical anastomosis. A biopsy was performed using cold forceps. Retroflexed views revealed internal hemorrhoid The scope was then completely withdrawn from the patient and the procedure terminated. ADVERSE EVENTS: There were no complications. IMPRESSIONS: 1. There was evidence of prior surgical anastomosis; biopsy was performed using cold forceps 2. Retroflexed views revealed internal hemorrhoid 3. Revealed external hemorrhoids RECOMMENDATIONS: Await biopsy results RECALL: Return As need for Flexible Sigmoidoscopy Miller Pollard MD eSigned: Miller Pollard MD 04/05/2018 12:30 PM cc: PATIENT NAME: Moni Bailey MR#: [id number]
[2018-04-05 13:24] LABS: Baso # (Auto) 0.1 th/mm3 (0.0-0.2); Baso % (Auto) 0.5 % (0.0-2.0); Eos # (Auto) 0.2 th/mm3 (0.0-0.4); Eos % (Auto) 1.2 % (0.0-4.0); Hematocrit 29.6 % (35.0-46.0); Hemoglobin 9.2 gm/dL (11.6-15.3); Lymph # (Auto) 0.5 th/mm3 (1.0-4.8); Lymph % (Auto) 3.5 % (9.0-44.0); Mean Corpuscular Volume 90.3 fL (80.0-100.0); Mean Platelet Volume 8.3 fL (7.0-11.0); Mono # (Auto) 1.5 th/mm3 (0.0-0.9); Mono % (Auto) 10.8 % (0.0-8.0); Neut # (Auto) 11.9 th/mm3 (1.8-7.7); Platelet Count 974 th/mm3 (150-450); Red Blood Count 3.28 mil/mm3 (4.00-5.30); Red Cell Distribution Width 17.6 % (11.6-17.2); White Blood Count 14.1 th/mm3 (4.0-11.0)
[2018-04-05] MEDS ORDERED: Metoprolol Tartrate 25 MG Tablet PO ONE (13:25)
[2018-04-05] MEDS ORDERED: Chlorhexidine Gluconate 2% 1 Pack (2 Cloths) TOPICAL ONE (13:25)
--- NOTE | 2018-04-05 13:35 | ECHRPT ---
Indication: sepsis poss endocarditis CONCLUSIONS Normal left ventricular size.the left ventricular systolic function is normal with an estimated ejec tion fraction in the range of 55-60%. Wall thickness is normal. [id number] mitral valve regurgitation. There is mild tricuspid valve regurgitation. The estimated pulmonary arterial pressure is 43 mmHg. No vegetations seen. BP: / HR: Rhythm: MEASUREMENTS (Male / Female) Normal Values Technical Quality: 2D ECHO LV Diastolic Diameter PLAX 3.8 cm 4.2 - 5.9 / 3.9 - 5.3 cm LV Systolic Diameter PLAX 2.6 cm IVS Diastolic Thickness 1.2 cm 0.6 - 1.0 / 0.6 - 0.9 cm LVPW Diastolic Thickness 1.2 cm 0.6 - 1.0 / 0.6 - 0.9 cm LV Relative Wall Thickness 0.6 RV Internal Dim ED PLAX 3.2 cm LVOT Diameter 1.7 cm Aortic Root Diameter 2.1 cm LA Systolic Diameter LX 3.2 cm 3.0 - 4.0 / 2.7 - 3.8 cm LV Ejection Fraction MOD 4C 57.5 % LV Ejection Fraction 4C AL 58.4 % M-MODE Aortic Root Diameter MM 2.7 cm LA Systolic Diameter MM 3.8 cm LA Ao Ratio MM 1.4 AV Cusp Separation MM 1.6 cm DOPPLER AV Peak Velocity 203.5 cm/s AV Peak Gradient 16.6 mmHg AV Mean Gradient 6.0 mmHg AV Velocity Time Integral 43.5 cm LVOT Peak Velocity 117.0 cm/s LVOT Peak Gradient 5.5 mmHg LVOT Velocity Time Integral 26.9 cm AV Area Cont Eq vti 1.4 cm AV Area Cont Eq pk 1.3 cm Mitral E Point Velocity 78.0 cm/s Mitral A Point Velocity 80.0 cm/s Mitral E to A Ratio 1.0 LV E' Lateral Velocity 8.5 cm/s Mitral E to LV E' Lateral Ratio 9.2 LV E' Septal Velocity 6.3 cm/s Mitral E to LV E' Septal Ratio 12.3 TR Peak Velocity 286.0 cm/s TR Peak Gradient 32.7 mmHg Right Atrial Pressure 10.0 mmHg Pulmonary Artery Systolic Pressu 42.7 mmHg Right Ventricular Systolic Press 42.7 mmHg PV Peak Velocity 114.0 cm/s PV Peak Gradient 5.2 mmHg FINDINGS LEFT VENTRICLE Normal left ventricular size.the left ventricular systolic function is normal with an estimated ejec tion fraction in the range of 55-60%. Wall thickness is normal. RIGHT VENTRICLE Normal right ventricular size and systolic function. LEFT ATRIUM The left atrial size is normal. RIGHT ATRIUM The right atrial size is normal. ATRIAL SEPTUM Normal atrial septal thickness without atrial level shunting by limited color doppler interrogation. AORTA The aortic root and proximal ascending aorta are normal in size on limited imaging. MITRAL VALVE [id number] mitral valve regurgitation. AORTIC VALVE Trileaflet aortic valve. No aortic valve stenosis or regurgitation. TRICUSPID VALVE There is mild tricuspid valve regurgitation. The estimated pulmonary arterial pressure is 43 mmHg. PULMONARY VALVE No pulmonary valve regurgitation or stenosis. VESSELS The inferior vena cava is normal in size. PERICARDIUM No pericardial effusion. Preet Story MD (Electronically Signed) Final Date:05 April 2018 13:34
[2018-04-05 13:46] LABS: Carbon Dioxide 29.1 meq/L (21.0-32.0); Magnesium 1.7 mg/dL (1.5-2.5); Phosphorus 2.8 mg/dL (2.5-4.9); Potassium 4.7 meq/L (3.5-5.1)
--- NOTE | 2018-04-05 13:46 | P.PN ---
Subjective Interval history: This is a pleasant 57 y/o Female with DM II, dumping syndrome, she is on TPN, chronic diarrhea, GERD, Splenectomy gastroparesis, history of DVT on Lovenox subcu, and renal transplant. Patient was initially referred to the emergency room at [facility] by her transplant physician due to fever. found with Diarrhea, had Esophagitis [place] treated with Diflucan, Colonoscopy october 2017 benign polyps, Pancreatectomy 2010, revision of anastomosis from Liver to Intestines January 2018, Renal Transplant June 2017, Recent DVR August 2017 , developed rectal bleed 04/03 Improving Diarrhea with Lomotil, GI recommended clear liquid diet, PPI, Imodium , monitor laboratory, Creon, Imuran. continue to hold Lovenox. thrombocytosis. history of VTE on Lovenox 60 mg BID at this time on hold, Seen in her Bedroom at this time Doctor Atul in to see the patient and discuss in my presence with Doctor Gilberto Patel will perform Sigmoidoscopy tomorrow morning. 04/05: Seen by doctor Gilberto Patel today, no obvious source of infection yet identified, Working on Prograf Medication recommended to accept Anagrelide by Hematology and Oncology to reduce Leukocytosis, Hematology recommended to start again Lovenox 60 [address] they will place the orders, if she is unable to tolerate anticoagulation will perform ICF Status post Sigmoidoscopy evidence of a Hyperemic appearing and inflamed prior surgical anastomosis, Internal Hemorrhoids as per Nephrology Creatinine fluctuates in 1.3. EGD LA Class A esophagitis, Food residue in the gastric body, Normal duodenal Mucosa, recommended to continue PPIs. and Liquid diet, as per doctor Jorge wants her Pain medicine to be handled better was asked for Palliative Care Consult we do not have Pain medicine specialist. removed Morphine IV after discuss with patient about this and she will continue by Mouth. Physical Exam Vital signs: Vital Signs 04/04/18 14:00 04/04/18 15:00 04/04/18 16:00 Temperature 98.1 F Pulse Rate 75 76 74 Respiratory Rate 16 Blood Pressure 133/81 Pulse Oximetry 99 04/04/18 17:00 04/04/18 18:00 04/04/18 19:00 Temperature 98.3 F Pulse Rate 72 69 72 Respiratory Rate 16 Blood Pressure 138/68 Pulse Oximetry 97 04/04/18 20:00 04/04/18 21:00 04/04/18 22:00 Temperature Pulse Rate 73 70 73 Respiratory Rate Blood Pressure Pulse Oximetry 04/04/18 23:00 04/05/18 00:00 04/05/18 00:22 Temperature 98.5 F Pulse Rate 74 74 Respiratory Rate 16 16 Blood Pressure 133/67 Pulse Oximetry 97 04/05/18 01:00 04/05/18 02:00 04/05/18 03:00 Temperature 98.5 F Pulse Rate 75 73 68 Respiratory Rate 16 Blood Pressure 138/72 Pulse Oximetry 97 04/05/18 03:36 04/05/18 04:00 04/05/18 05:00 Temperature Pulse Rate 70 73 Respiratory Rate 16 Blood Pressure Pulse Oximetry 04/05/18 06:00 04/05/18 07:00 04/05/18 08:00 Temperature 98.2 F Pulse Rate 72 70 72 Respiratory Rate 16 Blood Pressure 126/61 Pulse Oximetry 98 04/05/18 09:00 04/05/18 10:00 04/05/18 11:00 Temperature Pulse Rate 68 77 72 Respiratory Rate Blood Pressure Pulse Oximetry 04/05/18 12:00 04/05/18 12:33 04/05/18 13:00 Temperature 97.6 F Pulse Rate 67 74 83 Respiratory Rate 18 Blood Pressure 123/75 Pulse Oximetry 97 Intake & Output 04/04/18 04/05/18 04/05/18 18:59 06:59 18:59 Intake Total 1300 / 1300 2549.6937 / 2549.6937 Output Total 1500 / 1500 1200 / 1200 Balance -200 / -200 1349.6937 / 1349.6937 Weight 62.5 kg Intake: IV 2309.6937 / 2309.6937 Intralipid 20% Inj 250 ML @ 31. 250 / 250 25 mls/hr IV.SIG Q24H [facility] Rx#: [id number] Sodium Chloride 23.4% Inj 11 9.6937 / 2059.6937 MEQ Sodium Acetate Inj 59 MEQ KCl Inj 40 MEQ Magnesium Chloride Inj 10 MEQ Calcium Chloride Inj 9 MEQ MVI-12 Inj 10 ML Folvite Inj 1 MG NovoLIN R Inj 30 UNITS In TPN Fluid 2 Liter 2,000 ML @ 65.009 mls/hr IV.SIG Q24H [facility] Rx#:[id number] Oral 1300 / 1300 240 / 240 Output: Urine 1500 / 1500 1200 / 1200 Narrative: GENERAL: Well-developed patient, in no apparent distress. CARDIOVASCULAR: Regular rate and rhythm without murmurs, gallops, or rubs. RESPIRATORY: Clear to auscultation. Breath sounds equal bilaterally. No wheezes , rales, or rhonchi. GASTROINTESTINAL: Abdomen soft, tender on palpation specially on left flank. MUSCULOSKELETAL: Extremities without clubbing, cyanosis, or edema. NEURO: Alert & Oriented x4 to person, place, time, situation. Moves all ext x4 Results - Labs CBC & Chem 7: 04/05/18 13:08 04/05/18 13:08 Laboratory Results - last 24 hr 04/04/18 04/04/18 04/04/18 16:05 16:12 20:29 WBC RBC Hgb Hct MCV MCH MCHC RDW Plt Count MPV Neut % (Auto) Lymph % (Auto) Mcpherson % (Auto) Eos % (Auto) Baso % (Auto) Neut # (Auto) Lymph # (Auto) Mcpherson # (Auto) Eos # (Auto) Baso # (Auto) WBC Differential Differential Comment POC Glucose 220 H 228 H Urine Color Straw Urine Clarity Clear Urine pH 7.0 Ur Specific [place] 1.004 Urine Protein Negative Urine Glucose (UA) 50 Urine Ketones Negative Urine Occult Blood Small H Urine Nitrate Negative Urine Bilirubin Negative Urine Urobilinogen Less than 2 Ur Leukocyte Esterase Negative Urine WBC 1 Ur Squamous Epith Cells <1 Urine Mucus Few H Micro UA Comment Culture not ind Ur Microscopic Review Not Reportable Urine Culture Comments Culture not ind 04/05/18 04/05/18 04/05/18 10:55 12:49 13:08 WBC 14.1 H RBC 3.28 L Hgb 9.2 L Hct 29.6 L MCV 90.3 MCH 28.0 MCHC 31.0 L RDW 17.6 H Plt Count 974 H MPV 8.3 Neut % (Auto) 84.0 H Lymph % (Auto) 3.5 L Mcpherson % (Auto) 10.8 H Eos % (Auto) 1.2 Baso % (Auto) 0.5 Neut # (Auto) 11.9 H Lymph # (Auto) 0.5 L Mcpherson # (Auto) 1.5 H Eos # (Auto) 0.2 Baso # (Auto) 0.1 WBC Differential . Differential Comment Auto diff final POC Glucose 302 H 206 H Urine Color Urine Clarity Urine pH Ur Specific [place] Urine Protein Urine Glucose (UA) Urine Ketones Urine Occult Blood Urine Nitrate Urine Bilirubin Urine Urobilinogen Ur Leukocyte Esterase Urine WBC Ur Squamous Epith Cells Urine Mucus Micro UA Comment Ur Microscopic Review Urine Culture Comments Microbiology 04/04/18 14:11 Blood - Line Aerobic Blood Culture - Preliminary No growth in 1 day 04/04/18 14:11 Blood - Line Anaerobic Blood Culture - Preliminary No growth in 1 day 04/04/18 14:15 Blood - Peripheral Aerobic Blood Culture - Preliminary No growth in 1 day 04/04/18 14:15 Blood - Peripheral Anaerobic Blood Culture - Preliminary No growth in 1 day - Imaging Impressions Abdomen/Pelvis CT 04/04/18 00:00 CONCLUSION: 1. The only new findings when compared to prior CT on 03/27/2018 include distention of the stomach and mild bibasilar atelectasis. Chest CT 04/04/18 00:00 CONCLUSION: 1. Increase in subsegmental basilar atelectasis since March 27. No new effusion. Upper lungs clear. No new adenopathy. Venous Doppler Study 04/04/18 13:29 CONCLUSION: 1. Nonocclusive small volume thrombus involving the distal superficial femoral vein and peroneal vein on the left. This could relate to residual chronic thrombus from the patient's prior DVT. 2. No thrombus involving the right lower extremity. 3. Nothing to account for bilateral lower extremity swelling. Assessment and Plan - Assessment (1) SIRS (systemic inflammatory response syndrome) Code(s): R65.10 - Systemic inflammatory response syndrome (SIRS) of non- infectious origin without acute organ dysfunction Status: Acute (2) H/O kidney transplant Code(s): Z94.0 - Kidney transplant status Status: Acute (3) Abdominal pain Code(s): R10.9 - Unspecified abdominal pain Status: Acute (4) On total parenteral nutrition (TPN) Code(s): Z78.9 - Other specified health status Status: Acute (5) Renal insufficiency Code(s): N28.9 - Disorder of kidney and ureter, unspecified Status: Acute (6) DM (diabetes mellitus) Code(s): E11.9 - Type 2 diabetes mellitus without complications Status: Acute - Plan Fever, SIRS- fever now has resolved. Chest x-ray was within normal limits, urinalysis showed no infection Blood cultures thus far negative antibiotics discontinued. ID following; previously d/w . rectal bleed will monitor H/H- GI consulted. 04/05: Status post Sigmoidoscopy evidence of a Hyperemic appearing and inflamed prior surgical anastomosis, Internal Hemorrhoids, Status post EGD LA Class A esophagitis, Food residue in the gastric body, Normal duodenal Mucosa, recommended to continue PPIs. and Liquid diet. not yet clear for discharge. H/o renal transplant creatinine worsened today to 1.37 Transplanted in June 2017 at [facility], Dr. Louis Continue Prograf, adjusted by nephrology Appreciate transplant surgery consult Thrombocytosis reactive. Patient has a history of thrombophilia with numbers up to 1.2 million, initially trended downwards- l resumed Anagrelide - but the patient refused. today recommended to the patient to accept the medicine. Abdominal pain- better. Patient has a history of large areas of bowel resection, multiple surgeries, pancreatectomy and splenectomy She allegedly has 260 cm of small bowel with no colon She has a history of gastroparesis related to adhesions and stenoses in the bowel, she takes TPN for this Dietitian consulted for TPN recs. continue with left flank pain, status post Sigmoidoscopy and EGD read above. asked for CT abdomen and Pelvis Stomach distention and basal atelectasis on both lungs. Type 2 diabetes- Uncontrolled added Levemir 5 units and titrate to control blood sugar. initially started on insulin drip which was later on stopped; - now on regular insulin with TPN- along with accu-check with SSI. oral thrush; continue on Nystatin S and Swallow. pain management asked for icu specialist at this time will switch to Morphine by mouth recommended by doctor Patel to try to remove IV Pain medicine is worsening her Abdominal pain and Stomach distention. DVT Prophylaxis Lovenox Code Status: Full code Discussed Condition With: Patient and Nurse Miss Dhillon. Discharge Planning: not yet cleared by specialists.
--- NOTE | 2018-04-05 13:52 | P.PNNP ---
Subjective Interval history: patient is doing about same Physical Exam Vital signs: Vital Signs 04/04/18 14:00 04/04/18 15:00 04/04/18 16:00 Temperature 98.1 F Pulse Rate 75 76 74 Respiratory Rate 16 Blood Pressure 133/81 Pulse Oximetry 99 04/04/18 17:00 04/04/18 18:00 04/04/18 19:00 Temperature 98.3 F Pulse Rate 72 69 72 Respiratory Rate 16 Blood Pressure 138/68 Pulse Oximetry 97 04/04/18 20:00 04/04/18 21:00 04/04/18 22:00 Temperature Pulse Rate 73 70 73 Respiratory Rate Blood Pressure Pulse Oximetry 04/04/18 23:00 04/05/18 00:00 04/05/18 00:22 Temperature 98.5 F Pulse Rate 74 74 Respiratory Rate 16 16 Blood Pressure 133/67 Pulse Oximetry 97 04/05/18 01:00 04/05/18 02:00 04/05/18 03:00 Temperature 98.5 F Pulse Rate 75 73 68 Respiratory Rate 16 Blood Pressure 138/72 Pulse Oximetry 97 04/05/18 03:36 04/05/18 04:00 04/05/18 05:00 Temperature Pulse Rate 70 73 Respiratory Rate 16 Blood Pressure Pulse Oximetry 04/05/18 06:00 04/05/18 07:00 04/05/18 08:00 Temperature 98.2 F Pulse Rate 72 70 72 Respiratory Rate 16 Blood Pressure 126/61 Pulse Oximetry 98 04/05/18 09:00 04/05/18 10:00 04/05/18 11:00 Temperature Pulse Rate 68 77 72 Respiratory Rate Blood Pressure Pulse Oximetry 04/05/18 12:00 04/05/18 12:33 04/05/18 13:00 Temperature 97.6 F Pulse Rate 67 74 83 Respiratory Rate 18 Blood Pressure 123/75 Pulse Oximetry 97 Intake & Output 04/04/18 04/05/18 04/05/18 18:59 06:59 18:59 Intake Total 1300 / 1300 2549.6937 / 2549.6937 Output Total 1500 / 1500 1200 / 1200 Balance -200 / -200 1349.6937 / 1349.6937 Weight 62.5 kg Intake: IV 2309.6937 / 2309.6937 Intralipid 20% Inj 250 ML @ 31. 250 / 250 25 mls/hr IV.SIG Q24H [facility] Rx#: [id number] Sodium Chloride 23.4% Inj 11 2058.6937 / MEQ Sodium Acetate Inj 59 MEQ KCl Inj 40 MEQ Magnesium Chloride Inj 10 MEQ Calcium Chloride Inj 9 MEQ MVI-12 Inj 10 ML Folvite Inj 1 MG NovoLIN R Inj 30 UNITS In TPN Fluid 2 Liter 2,000 ML @ 65.009 mls/hr IV.SIG Q24H [facility] Rx#:[id number] Oral 1300 / 1300 240 / 240 Output: Urine 1500 / 1500 1200 / 1200 Narrative: GENERAL: This is a well-nourished, well-developed patient, in no apparent distress. CARDIOVASCULAR: Regular rate and rhythm without murmurs, gallops, or rubs. RESPIRATORY: Clear to auscultation. Breath sounds equal bilaterally. No wheezes , rales, or rhonchi. GASTROINTESTINAL: Abdomen soft, non-tender, nondistended. Normal active bowel sounds MUSCULOSKELETAL: Extremities without clubbing, cyanosis, or edema. NEURO: Alert & Oriented x4 to person, place, time, situation. Moves all ext x4 Assessment and Plan - Assessment (1) Acute renal failure Code(s): N17.9 - Acute kidney failure, unspecified Status: Acute (2) Fever Code(s): R50.9 - Fever, unspecified Status: Acute Qualifiers: Qualified Code(s): R50.9 - Fever, unspecified (3) Renal transplant recipient Code(s): Z94.0 - Kidney transplant status Status: Acute (4) On total parenteral nutrition (TPN) Code(s): Z78.9 - Other specified health status Status: Acute (5) DM (diabetes mellitus) Code(s): E11.9 - Type 2 diabetes mellitus without complications Status: Acute (6) Abdominal pain Code(s): R10.9 - Unspecified abdominal pain Status: Acute - Plan Patient has acute renal failure with baseline creatinine around 0.9 currently at 1.2, Phosphorus and magnesium were replaced Doing better creatinine fluctuates 1.3 not Thrush nystatin added Thrombocytosis platelets are climbing up hematology following sigmoidoscopy done biopsy site of anastomosis Blood glucose fluctuate Monitor tacrolimus level Follow BMP Avoid nephrotoxins
[2018-04-05] MEDS ORDERED: Sodium Chlor 0.9% Inj 500 ML IV.SIG SCH (14:00)
[2018-04-05] MEDS ORDERED: Morphine Sulfate Oral Liq 10 MG/0.5 ML Syringe PO PRN (14:15)
[2018-04-05] MEDS: Insulin Detemir Inj 1,000 UNIT/10 ML Vial SQ SCH ×2 (14:45→21:14)
--- NOTE | 2018-04-05 15:49 | P.CONPAL ---
Consult Service: Palliative Care Requesting Physician: Asif Chavez Reason for Consult: a. To assist with evaluation and management of symptoms including:pain b. To assist medical decision maker(s) with: better understanding of current medical conditions; weighing benefits/burdens of medical treatment options; making medical treatment decisions. 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 She reports kidney function had been fairly good but not sure she had a UTI reporting she has pain in left. Cough or congestion. Port in place reported to be functioning well. She reported receiving Prograf up until a couple weeks prior and then was switched at the beginning of the month. Renal transplant function reported at 48% at last check was stable biopsy 1 month after transplant. she reports the remaining kidneys were removed. Last f/ up w surgeon 03/24/18. She has chronic abdominal pain, as well as chronic nausea and vomiting. 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 Additionally she has history of GERD, dumping syndrome, gastroparesis, on chronic TPN. 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 Slight leukocytosis 13.7. Lactic acid 1.2. She also reported a history of port infection with VRE requiring change out 2 months prior. Exam is generally benign, mild abdominal discomfort. Return for bacteremia started on antibiotics, ED physician consulted with transplant specialist at [facility] patient reported to have relatively uncomplicated course with no evidence of rejection creatinine stable. Recommended for coverage with Zyvox and/or Zosyn. Patient was planned for admission, cultures pending. * Transplant surgery service is consulted: No obvious source of infection noted. Kidney function appears stable compared to baseline although possibility of subclinical rejection cannot be completely dismissed. Follow creatinine trend. Unsure to make of Prograf levels will adjust lab draws levels trend. Reportedly normally has thrombocytopenia. Etiology not clear. Hold anagrelide for now. Await cultures. * Nephrology consulted: Patient with acute renal failure, baseline creatinine around 0.9, subclinical rejection cannot be ruled out. Platelets dropped. Will follow tacrolimus levels. Discussed with the physician at [facility] ; discussed possibility of rejection versus intolerance to Tacrolimus due to thrombocytopenia. Versus sepsis versus reaction to Zyvox. Additional labs pending. * 03/29 infectious disease consulted: Monitor temp, follow cultures. She is already on Zosyn, Zyvox. Further recommendations pending ongoing workup , nonlocalizing thus far. * 03/30 renal function slightly worsening. Etiology unclear, transplant surgeons he suspects possible intra-abdominal process i.e. SBO, as well as possible dehydration. Hyperglycemic. Not receiving usual insulin with TPN. KUB pending. Plan for insulin drip. Prograf. Etiology thrombocytopenia not clear. Cultures no growth. * 04/01 abdominal pain improving some though still with some chronic pain. On clear liquid diet. TPN adjusted, blood sugars improved. Some improvement in renal function. * 04/02 slight improvement. Abdominal pain improved. TPN adjusted blood sugars improved. Oral thrush started on nystatin. Discharge planning in the next day or 2 pending course. Platelets trending up, heme oncology consulted. * Heme oncology: Iron profile, vitamin B12, folate levels pending to determine possible nutritional causes of reactive thrombocytosis. She is known to have functional asplenia and post splenectomy state could also be a cause of reactive thrombocytosis. Inflammation causes could be trauma, infection, viral bacterial. Additional records requested from [facility].Hematologic malignancies that are associated with thrombocytosis include essential thrombocythemia, polycythemia vera, myelofibrosis, CML, myelodysplastic syndrome. Ultimately feel that multiple etiologies are contributing, including infection or inflammation, prior surgical removal of the spleen, recent trauma and surgery from her recent transplant and then complicated postoperative course. We will obtain records including CALR, MPL, JAK2 from [facility]. As the patient is prone to blood clots, she reports that she has been told to take anagrelide when her platelet count gets up high, especially over 1 million. She is declining this medication at this time. Inpatient hematology service will continue to follow. * She reported 1 maroon stool. GI consulted 04/03/18. Patient reported with colonoscopy October 2017 with benign polyps. She also apparently was treated for esophagitis [place] at that time. Records requested regarding EGD, colonoscopy October 2017. H&H stable. Monitor labs signs of bleeding, hold Lovenox. Monitor clinical course. Clear liquids for now. Endoscopy if active bleeding noted. * No further red stool noted. Hematology following and notes that workup at [facility] and other outpatient follow-up notes reactive thrombocytosis. Will request JAK2, CALR, MPL studies from prior treating facilities. Platelet count increasing patient declines anagrelide. Lovenox has been held due to for GI bleed. Restart anticoagulation as soon as possible. * 04/04 2D echo obtained to rule out endocarditis. EF 55-60%. Trace mitral regurg, trace tricuspid regurg. PA pressure 43. No vegetations. * 04/05 underwent EGD--GI notes class a esophagitis, 450 mL fluid retained in stomach, gastrojejunostomy identified. Small bowel mucosa normal. Food residue in gastric body. Transplant surgery continues to follow,Awaiting results of CMV/EBV PCR. Slight leukocytosis, CT abdomen pelvis unremarkable. * 04/05/18 palliative care consulted to assist with management of pain. IV morphine was changed to p.o. Discussed with primary nurse, discussed with Dr. Patel transplant services, as well as medical attending Dr. Chavez. Patient seen in room no visitors present. Dual visit with Walter Pritchett APRN. Patient is alert and oriented however appears very fatigued, somewhat flat and keeps eyes closed. She endorses she has a very bad headache which is making it hard for her to even lift her head and talk. She endorses no chronic history of migraines however she has had intermittent "sinus headaches "since her abdominal surgery earlier this summer. She indicates usually relieved by using Sudafed as needed. Her abdominal pain is generalized, and localized to the upper left. She feels like she needs to have a bowel movement. She wonders why she is still n.p.o., review with her findings of GI endoscopy. She indicates that she is always had motility with her that residual greater than 400 is significant especially given the number of bowel surgery she has had. Limited exploration with her as she is talking very softly and indicates this is worsening headache. Briefly explore and review her complicated medical history. She endorses chronic abdominal pain though has not been on chronic opiates for some time. She generally indicates the pain is a 4 or less and this is tolerable for her. She indicates during acute issues in acute hospitalization the pain is significantly increased. She indicates in the past she had a reaction to fentanyl. She indicates in the past she did tolerate oral Dilaudid without any issues. She is usually active, independent with her ADLs and able to attend to her own needs pain and her other issues generally does not cause her significant debility day- to-day. She does not want to have to use opiates daily in the future. She would like to manage the pain now and then get back home in her usual fashion. Limited exploration of the complexity of her conditions. She also reports some urinary incontinence during this hospitalization which is new for her just does not feel the urge to go until she is actually gone. No hematuria, no urgency no dysuria She indicates that her son in [place] is designated as a healthcare surrogate however she requests her local ex- be contacted for any acute issues or changes or as an emergency at is in the area. No family history of CV disease per records. . Function/Cognitive Trajectory: Prior to admission independent with ADLs. No cognitive deficits reported. Lives in a private home with her ex-. She has done inpatient rehab in Review of Systems Constitutional: Reports fatigue, Reports fever(s), Reports headache(s), Reports weakness Ears, Nose, Mouth, and Throat: Reports sinus pain, Reports sinus pressure, Denies mouth lesions, Denies sore throat Cardiovascular: Denies chest pain, Denies shortness of breath, Denies shortness of breath with activity Respiratory: Denies chest congestion, Denies cough, Denies shortness of breath Gastrointestinal: Reports abdominal pain, Reports nausea, Reports vomiting, Denies difficulty swallowing Genitourinary: Reports urinary incontinence, Denies painful urination, Denies urinary urgency Musculoskeletal: Denies back pain, Denies joint pain Skin/Breast: Denies sensitivity to light, Denies rash Neurologic: Reports headache(s), Denies dizziness, Denies numbness PMFSH - History History Provided By: Patient - Medical History Medical History: Medical History (Last Reviewed 04/05/18 @ 08:32 by Chip Ureña, PT) Diabetes Dumping syndrome Fracture, femur Fracture, femur GERD (gastroesophageal reflux disease) Gastroparesis History of hysterectomy Kidney failure Liver function failure On total parenteral nutrition (TPN) - Surgical History Surgical History: Surgical History (Last Reviewed 04/05/18 @ 08:32 by Chip Ureña, PT) H/O splenectomy History of colectomy History of intestinal surgery History of oophorectomy History of pancreatectomy Kidney transplant recipient Surgical procedure on lower extremity within past 6 months - Family History Family History: Family History (Last Updated 04/05/18 @ 17:46 by AMRIK Meier) Other No family history of cardiac disease - Social History I have reviewed the patient's Social History: Yes - Tobacco History Second Hand Smoke Exposure: No Tobacco Use In Past 30 Days: No Smoking Status: Former smoker Tobacco Type: Cigarettes Smoking End Date: 2008 (smoke 1/4 PPD off and on for 10 years before quitting in 2008) - Alcohol History How Often Do You Have a Drink Containing Alcohol: Never - Substance Use History Substance History: No History of Abuse - Travel History History of Recent Travel: Yes (was in [place] then [place]) Recent Travel in the [facility] Within the Last 8 Weeks: Yes Recent Travel Out of the Country Within the Last 8 Weeks: No - Immunization History Tetanus Immunization: Unsure Hx Influenza Vaccine This Season: Yes Medications and Allergies Active Medications: Active Medications Acetaminophen (Tylenol) 650 mg PO Q4H PRN PRN Reason: Temp > 100.4 Last Admin: 04/05/18 13:17 Dose: 650 mg Al Hydroxide/Mg Hydroxide (Milk Of Magnmilly Liq) 30 ml PO Q12H PRN PRN Reason: Mild Constipation Lipase/Protease/Amylase (Donovan Weinberg 24/76/120) 1 cap PO TIDAC [facility] Last Admin: 04/05/18 13:18 Dose: 1 cap Anagrelide HCl (Agrylin) 0.5 mg PO Q12H [facility] Last Admin: 04/05/18 13:20 Dose: Not Given Atorvastatin Calcium (Lipitor) 20 mg PO DAILY [facility] Last Admin: 04/05/18 08:35 Dose: 20 mg Azathioprine (Imuran) 100 mg PO DAILY [facility] Last Admin: 03/29/18 10:16 Dose: Not Given Benzocaine/Menthol (Chloraseptic Sore Throat Lozenge) 1 lozenge BUCCAL Q4H PRN PRN Reason: sore throat Last Admin: 04/04/18 05:19 Dose: 1 lozenge Bisacodyl (Dulcolax Supp) 10 mg RECTAL DAILY PRN PRN Reason: SEVERE CONSITIPATION Calcium Carbonate (Oscal) 500 mg PO BID [facility] Last Admin: 04/05/18 08:35 Dose: 500 mg Calcium Carbonate (Tums Chew) 500 mg CHEW Q2H PRN PRN Reason: DYSPEPSIA Last Admin: 04/04/18 03:49 Dose: 500 mg Carvedilol (Coreg) 12.5 mg PO BID [facility] Last Admin: 04/05/18 08:35 Dose: 12.5 mg Clonidine HCl (Catapres) 0.1 mg PO Q6H PRN PRN Reason: SBP>160, DBP>90 Last Admin: 03/30/18 16:24 Dose: 0.1 mg Dextrose (D50w Vial) 50 ml IV.PUSH UNSCH PRN PRN Reason: PER HYPOGLYCEMIA PROTOCOL Diphenoxylate HCl/Atropine (Lomotil) 1 tab PO TID [facility] Last Admin: 04/05/18 13:18 Dose: Not Given Enoxaparin Sodium (Lovenox Inj) 40 mg SQ DAILY [facility] Last Admin: 04/05/18 08:42 Dose: Not Given Glucagon (Glucagon Inj) 1 mg OTHER PRN PRN PRN Reason: for Hypoglycemia Protocol Heparin Sodium (Porcine) (Heparin Central Flush) 0 unit IV.FLUSH PRN PRN PRN Reason: Flush each lumen Last Admin: 03/28/18 05:44 Dose: 250 unit Heparin Sodium (Porcine) (Heparin Central Flush) 0 unit IV.FLUSH DAILY [facility] Last Admin: 04/05/18 08:36 Dose: Not Given Hydroxyzine HCl (Vistaril Inj) 50 mg IM Q6H PRN PRN Reason: pruritis Last Admin: 04/05/18 13:19 Dose: 50 mg Fat Emulsion Intravenous (Intralipid 20% Inj) 250 mls @ 31.25 mls/hr IV.SIG Q24H [facility] Last Infusion: 04/05/18 04:34 Dose: Infused Dextrose/Sodium Chloride (D5w/Normal Saline Inj) 1,000 mls @ 200 mls/hr IV.CONT .Q5H [facility] Last Admin: 04/05/18 13:18 Dose: Not Given Sodium Chloride (Ns Inj) 1,000 mls @ 250 mls/hr IV.CONT .Q4H [facility] Last Admin: 04/05/18 14:49 Dose: Not Given Potassium Chloride (Kcl 40 Meq Premix Inj) 40 meq in 100 mls @ 100 mls/hr IV.SIG Q1H PRN PRN Reason: for Initial K+ ONLY < 3.5 Potassium Chloride (Kcl 40 Meq Premix Inj) 40 meq in 100 mls @ 50 mls/hr IV.SIG Q2H PRN PRN Reason: for Subsequent K+ < 3.5 Potassium Chloride (Kcl 20 Meq Premix Inj) 20 meq in 100 mls @ 100 mls/hr IV.SIG Q1H PRN PRN Reason: for K+ 4.5 to 5 Last Infusion: 04/01/18 14:57 Dose: Infused Potassium Chloride (Kcl 20 Meq Premix Inj) 20 meq in 100 mls @ 50 mls/hr IV.SIG Q2H PRN PRN Reason: for Initial K+ ONLY < 3.5 Potassium Chloride (Kcl 20 Meq Premix Inj) 20 meq in 100 mls @ 50 mls/hr IV.SIG Q2H PRN PRN Reason: for Subsequent K+ < 3.5 Potassium Chloride (Kcl 20 Meq Premix Inj) 20 meq in 100 mls @ 50 mls/hr IV.SIG Q2H PRN PRN Reason: for K+ 3.5 to 4.4 Potassium Chloride (Kcl 20 Meq Premix Inj) 20 meq in 100 mls @ 50 mls/hr IV.SIG Q2H PRN PRN Reason: for K+ 4.5 to 5 Sodium Phosphate 15 mmol/ (Sodium Chloride) 105 mls @ 25 mls/hr IV.SIG UNSCH PRN PRN Reason: for Phosphate Level < 1.0 Potassium Chloride (Kcl 20 Meq Premix Inj) 20 meq in 100 mls @ 100 mls/hr IV.SIG Q1H PRN PRN Reason: for K+ 3.5 to 4.4 Sodium Chloride 11 meq/ Sodium Acetate 59 meq/ Potassium Chloride 40 meq/ Magnesium Chloride 10 meq/ Calcium Chloride 9 meq/ Multivitamins 10 ml/ Folic Acid 1 mg/Insulin Human Regular 30 units / Amino Acids/Electrolytes/Dextrose 2, 059.6937 mls @ 65.009 mls/hr IV.SIG Q24H [facility] Last Admin: 04/04/18 20:25 Dose: 65.01 mls/hr Lactated Ringer's (Lr 1000 Ml Inj) 1,000 mls @ 30 mls/hr IV.SIG .Q24H [facility] Stop: 04/06/18 13:29 Last Admin: 04/05/18 13:36 Dose: Not Given Sodium Chloride (Ns Inj) 500 mls @ 30 mls/hr IV.SIG .Q10H [facility] Last Admin: 04/05/18 13:43 Dose: Not Given Insulin Detemir (Levemir Inj) 5 unit SQ BID [facility] Last Admin: 04/05/18 14:45 Dose: 5 unit Insulin Human Regular (Novolin R Correctional Sugar Inj) 0 units SQ ACHS [facility]; Protocol Last Admin: 04/05/18 13:18 Dose: 3 units Lactulose (Lactulose Liq) 30 ml PO DAILY PRN PRN Reason: SEVERE CONSITIPATION Morphine Sulfate (Roxanol Liq) 5 mg PO Q4H PRN PRN Reason: PAIN 6-10 Nystatin (Mycostatin Liq) 5 ml SWISH-SWAL QID [facility] Last Admin: 04/05/18 13:17 Dose: 5 ml Ondansetron HCl (Zofran Inj) 4 mg IV.PUSH Q6H PRN PRN Reason: NAUSEA OR VOMITING Last Admin: 04/05/18 13:18 Dose: 4 mg Pantoprazole Sodium (Protonix) 40 mg PO BID [facility] Last Admin: 04/05/18 08:35 Dose: 40 mg Pt Own - Belatacept 0 each IV.PUSH Q30D [facility] Potassium Phos/Sodium Phos (K-Phos Neutral) 250 mg PO TID [facility] Last Admin: 04/05/18 13:18 Dose: 250 mg Prednisone (Deltasone) 10 mg PO DAILY [facility] Last Admin: 04/05/18 08:35 Dose: 10 mg Promethazine HCl (Phenergan) 25 mg PO Q4H PRN PRN Reason: NAUSEA OR VOMITING Last Admin: 04/03/18 02:34 Dose: 25 mg Senna/Docusate Sodium (Saray-Colace) 1 tab PO BID [facility] Last Admin: 04/05/18 08:35 Dose: 1 tab Sennosides (Senokot) 17.2 mg PO Q12H PRN PRN Reason: Moderate Constipation Sodium Bicarbonate (Sodium Bicarbonate 8.4% Inj) 50 meq IV.PUSH UNSCH PRN PRN Reason: for pH 6.9 to 7.0 Sodium Bicarbonate (Sodium Bicarbonate 8.4% Inj) 100 meq IV.PUSH UNSCH PRN PRN Reason: for pH less than 6.9 Sodium Chloride (Ns Flush) 0 ml IV.FLUSH DAILY [facility] Last Admin: 04/05/18 08:36 Dose: 10 ml Sodium Chloride (Ns Flush) 0 ml IV.FLUSH PRN PRN PRN Reason: FLUSH AFTER USING IV ACCESS Last Admin: 03/28/18 05:45 Dose: 10 ml Tacrolimus (Prograf) 4 mg PO Q12H [facility] Last Admin: 04/05/18 13:17 Dose: 4 mg Allergies Allergy/AdvReac Type Severity Reaction Status Date / Time metronidazole [From Flagyl] Allergy Mild Hives Verified 03/27/18 18:27 oxycodone Allergy Mild Redness of Verified 03/27/18 18:27 Skin oxytetracycline Allergy Mild Hives Verified 03/27/18 18:27 [From Terramycin] fentanyl Allergy Edema Verified 04/05/18 17:07 filgrastim [From Neupogen] Allergy Anaphylaxis Verified 04/05/18 10:48 Home Medications Medication Instructions Recorded Confirmed Type Phenergan 25 mg PO Q6-8H PRN 03/27/18 03/27/18 History acetaminophen 650 mg PO Q4H PRN 03/27/18 03/27/18 History anagrelide 0.5 mg PO Q12H 03/27/18 03/27/18 History atorvastatin 20 mg PO DAILY 03/27/18 03/27/18 History azathioprine [Imuran] 100 mg PO DAILY 03/27/18 03/27/18 History belatacept 10 mg/kg IV QMONTH 03/27/18 03/27/18 History calcium carbonate 1 tab PO BID 03/27/18 03/27/18 History carvedilol 12.5 mg PO BID 03/27/18 03/27/18 History diphenoxylate-atropine [Lomotil] 1 tab PO TID 03/27/18 03/27/18 History enoxaparin 40 mg SUBCUT DAILY 03/27/18 03/27/18 History ergocalciferol (vitamin D2) 50,000 unit PO 3XW 03/27/18 03/27/18 History hydromorphone 2 mg PO Q6H PRN 03/27/18 03/27/18 History insulin glargine 12 unit SUBCUT QNOON 03/27/18 03/27/18 History insulin lispro 1 sliding scale dose SUBCUT UD 03/27/18 03/27/18 History [id number] [Creon] 1 cap PO TIDAC 03/27/18 03/27/18 History ondansetron 4 mg PO Q8H PRN 03/27/18 03/27/18 History pantoprazole 40 mg PO BID 03/27/18 03/27/18 History prednisone 10 mg PO DAILY 03/27/18 03/27/18 History prochlorperazine maleate 10 mg PO Q6-8H PRN 03/27/18 03/27/18 History [Compazine] tacrolimus 0.5 mg PO DAILY 03/27/18 03/27/18 History tacrolimus [Prograf] 4 mg PO Q12H 03/27/18 03/27/18 History Advance Directives Living Will: Yes Healthcare Surrogate: Yes Ethical and Legal Issues: No legal issues. Patient currently alert, oriented and able to make her own decisions. She indicates that her son is designated as her healthcare surrogate. Physical Exam Vital Signs: Vital Signs - 24 hr 04/04/18 16:00 04/04/18 17:00 04/04/18 18:00 Temperature Pulse Rate 74 72 69 Respiratory Rate Blood Pressure Pulse Oximetry 04/04/18 19:00 04/04/18 20:00 04/04/18 21:00 Temperature 98.3 F Pulse Rate 72 73 70 Respiratory Rate 16 Blood Pressure 138/68 Pulse Oximetry 97 04/04/18 22:00 04/04/18 23:00 04/05/18 00:00 Temperature 98.5 F Pulse Rate 73 74 74 Respiratory Rate 16 Blood Pressure 133/67 Pulse Oximetry 97 04/05/18 00:22 04/05/18 01:00 04/05/18 02:00 Temperature Pulse Rate 75 73 Respiratory Rate 16 Blood Pressure Pulse Oximetry 04/05/18 03:00 04/05/18 03:36 04/05/18 04:00 Temperature 98.5 F Pulse Rate 68 70 Respiratory Rate 16 16 Blood Pressure 138/72 Pulse Oximetry 97 04/05/18 05:00 04/05/18 06:00 04/05/18 07:00 Temperature 98.2 F Pulse Rate 73 72 70 Respiratory Rate 16 Blood Pressure 126/61 Pulse Oximetry 98 04/05/18 08:00 04/05/18 09:00 04/05/18 10:00 Temperature Pulse Rate 72 68 77 Respiratory Rate Blood Pressure Pulse Oximetry 04/05/18 11:00 04/05/18 12:00 04/05/18 12:33 Temperature 97.6 F Pulse Rate 72 67 74 Respiratory Rate 18 Blood Pressure 123/75 Pulse Oximetry 97 04/05/18 13:00 04/05/18 14:00 Temperature Pulse Rate 83 70 Respiratory Rate Blood Pressure Pulse Oximetry I&O: Intake & Output 04/03/18 04/04/18 04/05/18 04/06/18 06:59 06:59 06:59 06:59 Intake Total 2625 / 2625 1566.6937 / 1566.6937 3849.6937 / 3849.6937 Output Total 2700 / 2700 2800 / 2800 2700 / 2700 Balance -75 / -75 -1233.3063 / -1233.3063 1149.6937 / 1149.6937 Weight 60.5 kg 60 kg 62.5 kg Physical Exam: CONSTITUTIONAL/GENERAL: This is an adequately nourished patient, flat affect, grimaces TUBES/LINES/DRAINS: Port accessed, telemetry present SKIN: No jaundice, rashes, or lesions. Well-healed abdominal scars. Skin warm/ dry. HEAD: Atraumatic. Normocephalic. EYES: Pupils equal and round and reactive. Extraocular motions intact. No scleral icterus. No injection or drainage. Fundi not examined. ENT: Hearing grossly normal. Nose without bleeding or purulent drainage. Throat without visible erythema, exudates, masses, or lesions. NECK: Trachea midline. Supple, nontender. No palpable thyroid enlargement or nodularity. CARDIOVASCULAR: Regular rate and rhythm without murmur. No JVD. Peripheral pulses symmetric. No edema. RESPIRATORY/CHEST: Symmetric, unlabored respirations. Clear to auscultation. On room air. Breath sounds equal bilaterally. GASTROINTESTINAL: Abdomen soft, tender with palpation,distended. No palpable masses-Limited palpation secondary to tenderness. No guarding. Bowel sounds intermittent. GENITOURINARY: Without palpable bladder distension. MUSCULOSKELETAL: Extremities without clubbing, cyanosis, or edema. No joint tenderness or effusion noted. NEUROLOGICAL: Awake and alert, oriented x3. Appropriate. Insight reasonable. Moves all 4 extremities. Motor and sensory grossly within normal limits. Follows commands. Cognitively sharp. Keeps eyes closed. PSYCHIATRIC: No obvious anxiety/depression. Somewhat flat indicates is in pain with headache Diagnostic Tests Laboratory: Laboratory Results - last 72 hr 04/02/18 04/02/18 04/02/18 15:02 17:33 20:29 WBC RBC Hgb Hct MCV MCH MCHC RDW Plt Count MPV Prelim Diff (Auto) Neut % (Auto) Lymph % (Auto) Mccormick % (Auto) Eos % (Auto) Baso % (Auto) Neut # (Auto) Lymph # (Auto) Mccormick # (Auto) Eos # (Auto) Baso # (Auto) WBC Differential Differential Comment ESR Sodium Potassium Chloride Carbon Dioxide Anion Gap BUN Creatinine Estimated GFR POC Glucose 300 H 259 H Random Glucose Calcium Phosphorus Magnesium Iron TIBC % Saturation Ferritin C-Reactive Protein Vitamin B12 Folate Urine Color Urine Clarity Urine pH Ur Specific Raphine Urine Protein Urine Glucose (UA) Urine Ketones Urine Occult Blood Urine Nitrate Urine Bilirubin Urine Urobilinogen Ur Leukocyte Esterase Urine WBC Ur Squamous Epith Cells Urine Mucus Micro UA Comment Ur Microscopic Review Urine Culture Comments Nasal Screen MRSA (PCR) Mrsa detected Tacrolimus 04/03/18 04/03/18 04/03/18 07:50 10:35 10:35 WBC RBC Hgb Hct MCV MCH MCHC RDW Plt Count MPV Prelim Diff (Auto) Neut % (Auto) Lymph % (Auto) Mccormick % (Auto) Eos % (Auto) Baso % (Auto) Neut # (Auto) Lymph # (Auto) Mccormick # (Auto) Eos # (Auto) Baso # (Auto) WBC Differential Differential Comment ESR Sodium 131 L Potassium 4.3 Chloride 94 L Carbon Dioxide 27.3 Anion Gap 10 BUN 31 H Creatinine 1.25 H Estimated GFR 44 L POC Glucose 274 H Random Glucose 425 H D Calcium 10.3 H D Phosphorus 2.2 L Magnesium 1.5 Iron TIBC % Saturation Ferritin C-Reactive Protein Vitamin B12 Folate Urine Color Urine Clarity Urine pH Ur Specific Raphine Urine Protein Urine Glucose (UA) Urine Ketones Urine Occult Blood Urine Nitrate Urine Bilirubin Urine Urobilinogen Ur Leukocyte Esterase Urine WBC Ur Squamous Epith Cells Urine Mucus Micro UA Comment Ur Microscopic Review Urine Culture Comments Nasal Screen MRSA (PCR) Tacrolimus 12.8 04/03/18 04/03/18 04/03/18 10:35 10:35 10:35 WBC 10.1 RBC 2.95 L Hgb 9.0 L Hct 27.9 L MCV 94.7 D MCH 30.7 MCHC 32.4 RDW 17.3 H Plt Count 716 H MPV 9.1 Prelim Diff (Auto) 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 Differential Comment Auto diff final ESR 46 H Sodium Potassium Chloride Carbon Dioxide Anion Gap BUN Creatinine Estimated GFR POC Glucose Random Glucose Calcium Phosphorus Magnesium Iron 39 L TIBC 211 L % Saturation 18.4 L Ferritin 128 C-Reactive Protein 2.20 H Vitamin B12 527 Folate Greater than 20.0 H Urine Color Urine Clarity Urine pH Ur Specific Raphine Urine Protein Urine Glucose (UA) Urine Ketones Urine Occult Blood Urine Nitrate Urine Bilirubin Urine Urobilinogen Ur Leukocyte Esterase Urine WBC Ur Squamous Epith Cells Urine Mucus Micro UA Comment Ur Microscopic Review Urine Culture Comments Nasal Screen MRSA (PCR) Tacrolimus 04/03/18 04/03/18 04/03/18 11:25 16:41 21:30 WBC RBC Hgb Hct MCV MCH MCHC RDW Plt Count MPV Prelim Diff (Auto) Neut % (Auto) Lymph % (Auto) Mccormick % (Auto) Eos % (Auto) Baso % (Auto) Neut # (Auto) Lymph # (Auto) Mccormick # (Auto) Eos # (Auto) Baso # (Auto) WBC Differential Differential Comment ESR Sodium Potassium Chloride Carbon Dioxide Anion Gap BUN Creatinine Estimated GFR POC Glucose 182 H 249 H Random Glucose Calcium Phosphorus Magnesium Iron TIBC % Saturation Ferritin C-Reactive Protein Vitamin B12 Folate Urine Color Urine Clarity Urine pH Ur Specific Raphine Urine Protein Urine Glucose (UA) Urine Ketones Urine Occult Blood Urine Nitrate Urine Bilirubin Urine Urobilinogen Ur Leukocyte Esterase Urine WBC Ur Squamous Epith Cells Urine Mucus Micro UA Comment Ur Microscopic Review Urine Culture Comments Nasal Screen MRSA (PCR) Mrsa detected Tacrolimus 04/03/18 04/04/18 04/04/18 21:35 07:59 11:03 WBC RBC Hgb Hct MCV MCH MCHC RDW Plt Count MPV Prelim Diff (Auto) Neut % (Auto) Lymph % (Auto) Mccormick % (Auto) Eos % (Auto) Baso % (Auto) Neut # (Auto) Lymph # (Auto) Mccormick # (Auto) Eos # (Auto) Baso # (Auto) WBC Differential Differential Comment ESR Sodium 133 L Potassium 4.8 Chloride 93 L Carbon Dioxide 31.3 Anion Gap 9 BUN 34 H Creatinine 1.33 H Estimated GFR 41 L POC Glucose 318 H 264 H Random Glucose 364 H Calcium 9.4 D Phosphorus 2.2 L Magnesium 1.6 Iron TIBC % Saturation Ferritin C-Reactive Protein Vitamin B12 Folate Urine Color Urine Clarity Urine pH Ur Specific Raphine Urine Protein Urine Glucose (UA) Urine Ketones Urine Occult Blood Urine Nitrate Urine Bilirubin Urine Urobilinogen Ur Leukocyte Esterase Urine WBC Ur Squamous Epith Cells Urine Mucus Micro UA Comment Ur Microscopic Review Urine Culture Comments Nasal Screen MRSA (PCR) Tacrolimus 04/04/18 04/04/18 04/04/18 11:03 11:03 11:26 WBC 13.1 H RBC 3.18 L Hgb 8.9 L Hct 28.5 L MCV 89.8 D MCH 28.1 MCHC 31.3 L RDW 17.0 Plt Count 872 H MPV 8.9 Prelim Diff (Auto) Neut % (Auto) 78.9 H Lymph % (Auto) 8.0 L Mccormick % (Auto) 10.8 H Eos % (Auto) 1.5 Baso % (Auto) 0.8 Neut # (Auto) 10.3 H Lymph # (Auto) 1.0 Mccormick # (Auto) 1.4 H Eos # (Auto) 0.2 Baso # (Auto) 0.1 WBC Differential . Differential Comment Auto diff final ESR Sodium Potassium Chloride Carbon Dioxide Anion Gap BUN Creatinine Estimated GFR POC Glucose 182 H Random Glucose Calcium Phosphorus Magnesium Iron TIBC % Saturation Ferritin C-Reactive Protein Vitamin B12 Folate Urine Color Urine Clarity Urine pH Ur Specific Raphine Urine Protein Urine Glucose (UA) Urine Ketones Urine Occult Blood Urine Nitrate Urine Bilirubin Urine Urobilinogen Ur Leukocyte Esterase Urine WBC Ur Squamous Epith Cells Urine Mucus Micro UA Comment Ur Microscopic Review Urine Culture Comments Nasal Screen MRSA (PCR) Tacrolimus 11.2 04/04/18 04/04/18 04/04/18 16:05 16:12 20:29 WBC RBC Hgb Hct MCV MCH MCHC RDW Plt Count MPV Prelim Diff (Auto) Neut % (Auto) Lymph % (Auto) Mccormick % (Auto) Eos % (Auto) Baso % (Auto) Neut # (Auto) Lymph # (Auto) Mccormick # (Auto) Eos # (Auto) Baso # (Auto) WBC Differential Differential Comment ESR Sodium Potassium Chloride Carbon Dioxide Anion Gap BUN Creatinine Estimated GFR POC Glucose 220 H 228 H Random Glucose Calcium Phosphorus Magnesium Iron TIBC % Saturation Ferritin C-Reactive Protein Vitamin B12 Folate Urine Color Straw Urine Clarity Clear Urine pH 7.0 Ur Specific Raphine 1.004 Urine Protein Negative Urine Glucose (UA) 50 Urine Ketones Negative Urine Occult Blood Small H Urine Nitrate Negative Urine Bilirubin Negative Urine Urobilinogen Less than 2 Ur Leukocyte Esterase Negative Urine WBC 1 Ur Squamous Epith Cells <1 Urine Mucus Few H Micro UA Comment Culture not ind Ur Microscopic Review Not Reportable Urine Culture Comments Culture not ind Nasal Screen MRSA (PCR) Tacrolimus 04/05/18 04/05/18 04/05/18 10:55 12:49 13:08 WBC RBC Hgb Hct MCV MCH MCHC RDW Plt Count MPV Prelim Diff (Auto) Neut % (Auto) Lymph % (Auto) Mccormick % (Auto) Eos % (Auto) Baso % (Auto) Neut # (Auto) Lymph # (Auto) Mccormick # (Auto) Eos # (Auto) Baso # (Auto) WBC Differential Differential Comment ESR Sodium 132 L Potassium 4.7 Chloride 94 L Carbon Dioxide 29.1 Anion Gap 9 BUN 36 H Creatinine 1.37 H Estimated GFR 40 L POC Glucose 302 H 206 H Random Glucose 349 H Calcium 10.0 Phosphorus 2.8 Magnesium 1.7 Iron TIBC % Saturation Ferritin C-Reactive Protein Vitamin B12 Folate Urine Color Urine Clarity Urine pH Ur Specific Raphine Urine Protein Urine Glucose (UA) Urine Ketones Urine Occult Blood Urine Nitrate Urine Bilirubin Urine Urobilinogen Ur Leukocyte Esterase Urine WBC Ur Squamous Epith Cells Urine Mucus Micro UA Comment Ur Microscopic Review Urine Culture Comments Nasal Screen MRSA (PCR) Tacrolimus 04/05/18 04/05/18 13:08 13:08 WBC 14.1 H RBC 3.28 L Hgb 9.2 L Hct 29.6 L MCV 90.3 MCH 28.0 MCHC 31.0 L RDW 17.6 H Plt Count 974 H MPV 8.3 Prelim Diff (Auto) Neut % (Auto) 84.0 H Lymph % (Auto) 3.5 L Mccormick % (Auto) 10.8 H Eos % (Auto) 1.2 Baso % (Auto) 0.5 Neut # (Auto) 11.9 H Lymph # (Auto) 0.5 L Mccormick # (Auto) 1.5 H Eos # (Auto) 0.2 Baso # (Auto) 0.1 WBC Differential . Differential Comment Auto diff final ESR Sodium Potassium Chloride Carbon Dioxide Anion Gap BUN Creatinine Estimated GFR POC Glucose Random Glucose Calcium Phosphorus Magnesium Iron TIBC % Saturation Ferritin C-Reactive Protein Vitamin B12 Folate Urine Color Urine Clarity Urine pH Ur Specific Raphine Urine Protein Urine Glucose (UA) Urine Ketones Urine Occult Blood Urine Nitrate Urine Bilirubin Urine Urobilinogen Ur Leukocyte Esterase Urine WBC Ur Squamous Epith Cells Urine Mucus Micro UA Comment Ur Microscopic Review Urine Culture Comments Nasal Screen MRSA (PCR) Tacrolimus 10.1 Result Diagrams: 04/05/18 13:08 04/05/18 13:08 Microbiology: Microbiology 04/04/18 14:11 Aerobic Blood Culture - Preliminary Blood - Line No growth in 1 day Anaerobic Blood Culture - Preliminary No growth in 1 day 04/04/18 14:15 Aerobic Blood Culture - Preliminary Blood - Peripheral No growth in 1 day Anaerobic Blood Culture - Preliminary No growth in 1 day Imaging: Impressions Abdomen/Pelvis CT 04/04/18 00:00 CONCLUSION: 1. The only new findings when compared to prior CT on 03/27/2018 include distention of the stomach and mild bibasilar atelectasis. Chest CT 04/04/18 00:00 CONCLUSION: 1. Increase in subsegmental basilar atelectasis since March 27. No new effusion. Upper lungs clear. No new adenopathy. Patient/Family Conference Family Conference Time: 20 Family Conference Location: Bedside Issues Discussed: * Palliative care role, purpose, approach * Additional medical, psychosocial, history * Patients general health, functional status, and cognitive changes in the months leading up to the current hospitalization * pain, prior pain tx, potential pain options, allergies/intolerances * Questions answered to the best of my ability * Palliative care contact information provided Patient is alert and oriented however appears very fatigued, somewhat flat and keeps eyes closed. She endorses she has a very bad headache which is making it hard for her to even lift her head and talk. She endorses no chronic history of migraines however she has had intermittent "sinus headaches "since her abdominal surgery earlier this summer. She indicates usually relieved by using Sudafed as needed. Her abdominal pain is generalized, and localized to the upper left. She feels like she needs to have a bowel movement. She wonders why she is still n.p.o., review with her findings of GI endoscopy. She indicates that she is always had motility with her that residual greater than 400 is significant especially given the number of bowel surgery she has had. Limited exploration with her as she is talking very softly and indicates this is worsening headache. Briefly explore and review her complicated medical history. She endorses chronic abdominal pain though has not been on chronic opiates for some time. She generally indicates the pain is a 4 or less and this is tolerable for her. She indicates during acute issues in acute hospitalization the pain is significantly increased. She indicates in the past she had a reaction to fentanyl. She indicates in the past she did tolerate oral Dilaudid without any issues. She is usually active, independent with her ADLs and able to attend to her own needs pain and her other issues generally does not cause her significant debility day- to-day. She does not want to have to use opiates daily in the future. She would like to manage the pain now and then get back home in her usual fashion. Limited exploration of the complexity of her conditions. She indicates that her son in [place] is designated as a healthcare surrogate however she requests her local ex- be contacted for any acute issues or changes or as an emergency at is in the area. Assessment and Plan - Disease Oriented Problem List (1) Fever (2) Renal transplant recipient (3) On total parenteral nutrition (TPN) (4) SIRS (systemic inflammatory response syndrome) (5) Renal insufficiency (6) DM (diabetes mellitus) (7) Abdominal pain (8) Acute renal failure (9) Thrombocytopenia (10) Gastroparesis - Symptom Scale (1) Nausea 0-10 Scale: Unable to quantify (2) Abdominal pain 0-10 Scale: 8 Pertinent Non-Medical Issues: Psychosocial: Originally from [place]. 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 though remains in close communication with her ex- who is supportive. Indicates that her son in [place] is designated as healthcare surrogate. Spiritual: Did not review today Legal:No legal issues. Patient currently alert, oriented and able to make her own decisions. She indicates that her son is designated as her healthcare surrogate. Ethical issues impacting care: No ethical/legal issues identified Important Contacts: Steven Bailey (Ex Spouse) [phone] Prognosis: This patient was admitted for fever. Etiology still not entirely clear. She has complicated medical history having undergone many abdominal surgeries, and is status post kidney transplant June 2017. She has had ongoing issues with GI motility, short gut, TPN dependent at this point. No infectious agents localized yet during this admission course. Continues to have ongoing bowel issues. Given complicated medical history she does remain high risk for ongoing complications and potential clinical setbacks however at this time she is currently stable and she should be able to discharge home to her prior status. Code Status: Full Code Plan: Legal decision maker: Patient alert, oriented and appropriate. Able to make her own decisions. She indicates her son in [place] is designated as her primary healthcare surrogate, however her ex- who is local she wishes to be first contacted as he is local. Goals: goals aggressive. Pt wants better pain control, headache relief. Hopeful to return home once acute issues resolve CODE STATUS: full code SYMPTOMS: --pain- ongoing, acute on chronic. General day to day pain #4/10 to abdomen, tolerable. During acute hospitalization up to 8-9/10. Does not use chronic opiates daily. In the past has been on morphine, dilaudid, fentanyl. All make her itch. Fentanyl she reports causes angioedema, tongue swelling. Tolerates itching by using Vistaril with. She already has PRN vistaril ordered. /// average PRN use past several days= 7-9 doses 4mg IV morphine in 24 hr. 32mg IV morphine = 96mg oral morphine equivalents. initially felt fentanyl may be of benefit brandon with concern for gastric absorption, however pt reports TONGUE edema w use in the past. She does not want to be on [facility] opiates. She reports morphine PO ineffective. She reports hx dilaudid PO effective. = 32mg IV morphine = to 24mg dilaudid oral equivalents. This would be equivalent to 6mg dilaudid every 4 hr PO. Consider adding Dilaudid 2 mg PO every 4 hrs prn pain > 5 to treat very conservatively, to treat based on most recent requirements could consider 4mg PO every 4 hrs PRN pain > 5. Monitor, as not clear how much she will actually be absorbing given GI issues. d/w medical attending, requests enter order for conservative 2mg dose. Will d/c other PO morphine Also c/o sinus headache 10/10 intermittent past few mos. relieved w PRN sudafed , reports no hx of migraine diagnosis. She requests PRN sudafed- note cautious use with renal impairment. /// Consider adding Pseudoephedrine 30-60mg PO Q 6-8 HR PRN congestion/ headache, short term. *ordered. --n/v -intermittent, chronic. Multiple complex ongoing GI issues, concern RE ileus, decreased motility. Has PRN zofran. Palliative care will continue to follow during hospital course as condition evolves, to assist patient/decision-maker with understanding of medical conditions, weighing benefits/burdens of treatment options, for clarification of goals of treatment. Additionally will assist with any symptoms of palliative concern Appreciation Thank you for the opportunity to participate in the care of Moni Bailey. Attestation Attestation: To help prompt me to consider important information that might be impacting today's encounter and assessment, information from prior notes written by myself or my colleagues may have been "brought forward" into today's note. My signature on this note, however, is an attestation that I personally performed the exam, history, and/or decision-making noted today, and, unless otherwise indicated, the interactions with patient, family, and staff as well as the review of records all occurred today. I also attest that the listed assessment and stated plan reflect my best clinical judgment today based on the combination of historical information, prior notes, and today's exam/ interactions. When time spent is documented, it refers only to time spent today by the signer, or if indicated, combined time spent today by collaborating physician/nurse practitioner.
--- NOTE | 2018-04-05 16:06 | P.PNONC ---
Subjective Interval history: Resting in bed. Reports abdominal pain. Concern about overall medication conditions. Objective Vital Signs/Intake & Output: Vital Signs 04/04/18 16:00 04/04/18 17:00 04/04/18 18:00 Temperature Pulse Rate 74 72 69 Respiratory Rate Blood Pressure Pulse Oximetry 04/04/18 19:00 04/04/18 20:00 04/04/18 21:00 Temperature 98.3 F Pulse Rate 72 73 70 Respiratory Rate 16 Blood Pressure 138/68 Pulse Oximetry 97 04/04/18 22:00 04/04/18 23:00 04/05/18 00:00 Temperature 98.5 F Pulse Rate 73 74 74 Respiratory Rate 16 Blood Pressure 133/67 Pulse Oximetry 97 04/05/18 00:22 04/05/18 01:00 04/05/18 02:00 Temperature Pulse Rate 75 73 Respiratory Rate 16 Blood Pressure Pulse Oximetry 04/05/18 03:00 04/05/18 03:36 04/05/18 04:00 Temperature 98.5 F Pulse Rate 68 70 Respiratory Rate 16 16 Blood Pressure 138/72 Pulse Oximetry 97 04/05/18 05:00 04/05/18 06:00 04/05/18 07:00 Temperature 98.2 F Pulse Rate 73 72 70 Respiratory Rate 16 Blood Pressure 126/61 Pulse Oximetry 98 04/05/18 08:00 04/05/18 09:00 04/05/18 10:00 Temperature Pulse Rate 72 68 77 Respiratory Rate Blood Pressure Pulse Oximetry 04/05/18 11:00 04/05/18 12:00 04/05/18 12:33 Temperature 97.6 F Pulse Rate 72 67 74 Respiratory Rate 18 Blood Pressure 123/75 Pulse Oximetry 97 04/05/18 13:00 04/05/18 14:00 04/05/18 15:00 Temperature 98.3 F Pulse Rate 83 70 70 Respiratory Rate 16 Blood Pressure 128/66 Pulse Oximetry 97 Intake & Output 04/04/18 04/05/18 04/05/18 18:59 06:59 18:59 Intake Total 1300 / 1300 2549.6937 / 2549.6937 Output Total 1500 / 1500 1200 / 1200 Balance -200 / -200 1349.6937 / 1349.6937 Weight 62.5 kg Intake: IV 2309.6937 / 2309.6937 Intralipid 20% Inj 250 ML @ 31. 250 / 250 25 mls/hr IV.SIG Q24H [facility] Rx#: [id number] Sodium Chloride 23.4% Inj 11 / MEQ Sodium Acetate Inj 59 MEQ KCl Inj 40 MEQ Magnesium Chloride Inj 10 MEQ Calcium Chloride Inj 9 MEQ MVI-12 Inj 10 ML Folvite Inj 1 MG NovoLIN R Inj 30 UNITS In TPN Fluid 2 Liter 2,000 ML @ 65.009 mls/hr IV.SIG Q24H [facility] Rx#:[id number] Oral 1300 / 1300 240 / 240 Output: Urine 1500 / 1500 1200 / 1200 Result Diagrams: 04/05/18 13:08 04/05/18 13:08 Laboratory Results: Laboratory Results - last 24 hr 04/04/18 04/04/18 04/04/18 16:05 16:12 20:29 WBC RBC Hgb Hct MCV MCH MCHC RDW Plt Count MPV Neut % (Auto) Lymph % (Auto) [place] % (Auto) Eos % (Auto) Baso % (Auto) Neut # (Auto) Lymph # (Auto) [place] # (Auto) Eos # (Auto) Baso # (Auto) WBC Differential Differential Comment Sodium Potassium Chloride Carbon Dioxide Anion Gap BUN Creatinine Estimated GFR POC Glucose 220 H 228 H Random Glucose Calcium Phosphorus Magnesium Urine Color Straw Urine Clarity Clear Urine pH 7.0 Ur Specific [place] 1.004 Urine Protein Negative Urine Glucose (UA) 50 Urine Ketones Negative Urine Occult Blood Small H Urine Nitrate Negative Urine Bilirubin Negative Urine Urobilinogen Less than 2 Ur Leukocyte Esterase Negative Urine WBC 1 Ur Squamous Epith Cells <1 Urine Mucus Few H Micro UA Comment Culture not ind Ur Microscopic Review Not Reportable Urine Culture Comments Culture not ind Tacrolimus 04/05/18 04/05/18 04/05/18 10:55 12:49 13:08 WBC RBC Hgb Hct MCV MCH MCHC RDW Plt Count MPV Neut % (Auto) Lymph % (Auto) [place] % (Auto) Eos % (Auto) Baso % (Auto) Neut # (Auto) Lymph # (Auto) [place] # (Auto) Eos # (Auto) Baso # (Auto) WBC Differential Differential Comment Sodium 132 L Potassium 4.7 Chloride 94 L Carbon Dioxide 29.1 Anion Gap 9 BUN 36 H Creatinine 1.37 H Estimated GFR 40 L POC Glucose 302 H 206 H Random Glucose 349 H Calcium 10.0 Phosphorus 2.8 Magnesium 1.7 Urine Color Urine Clarity Urine pH Ur Specific [place] Urine Protein Urine Glucose (UA) Urine Ketones Urine Occult Blood Urine Nitrate Urine Bilirubin Urine Urobilinogen Ur Leukocyte Esterase Urine WBC Ur Squamous Epith Cells Urine Mucus Micro UA Comment Ur Microscopic Review Urine Culture Comments Tacrolimus 04/05/18 04/05/18 13:08 13:08 WBC 14.1 H RBC 3.28 L Hgb 9.2 L Hct 29.6 L MCV 90.3 MCH 28.0 MCHC 31.0 L RDW 17.6 H Plt Count 974 H MPV 8.3 Neut % (Auto) 84.0 H Lymph % (Auto) 3.5 L [place] % (Auto) 10.8 H Eos % (Auto) 1.2 Baso % (Auto) 0.5 Neut # (Auto) 11.9 H Lymph # (Auto) 0.5 L [place] # (Auto) 1.5 H Eos # (Auto) 0.2 Baso # (Auto) 0.1 WBC Differential . Differential Comment Auto diff final Sodium Potassium Chloride Carbon Dioxide Anion Gap BUN Creatinine Estimated GFR POC Glucose Random Glucose Calcium Phosphorus Magnesium Urine Color Urine Clarity Urine pH Ur Specific [place] Urine Protein Urine Glucose (UA) Urine Ketones Urine Occult Blood Urine Nitrate Urine Bilirubin Urine Urobilinogen Ur Leukocyte Esterase Urine WBC Ur Squamous Epith Cells Urine Mucus Micro UA Comment Ur Microscopic Review Urine Culture Comments Tacrolimus 10.1 Culture Results: Microbiology 04/04/18 14:11 Aerobic Blood Culture - Preliminary Blood - Line No growth in 1 day Anaerobic Blood Culture - Preliminary No growth in 1 day 04/04/18 14:15 Aerobic Blood Culture - Preliminary Blood - Peripheral No growth in 1 day Anaerobic Blood Culture - Preliminary No growth in 1 day Imaging Studies: Impressions Abdomen/Pelvis CT 04/04/18 00:00 CONCLUSION: 1. The only new findings when compared to prior CT on 03/27/2018 include distention of the stomach and mild bibasilar atelectasis. Chest CT 04/04/18 00:00 CONCLUSION: 1. Increase in subsegmental basilar atelectasis since March 27. No new effusion. Upper lungs clear. No new adenopathy. Medications: Active Medications Generic Name Dose Route Start Last Admin Trade Name Freq PRN Reason Stop Dose Admin Acetaminophen 650 mg 03/27/18 22:38 04/05/18 13:17 Tylenol PO 650 mg Q4H PRN Administration Temp > 100.4 Lipase/Protease/Amylase 1 cap 03/28/18 08:00 04/05/18 13:[address] 24/76/120 PO 1 cap TIDAC [facility] Administration Anagrelide HCl 0.5 mg 03/27/18 23:30 04/05/18 13:20 Agrylin PO Not Given Q12H [facility] Atorvastatin Calcium 20 mg 03/28/18 09:00 04/05/18 08:35 Lipitor PO 20 mg DAILY [facility] Administration Azathioprine 100 mg 03/28/18 09:00 03/29/18 10:16 Imuran PO Not Given DAILY [facility] Benzocaine/Menthol 1 lozenge 04/01/18 10:00 04/04/18 05:19 Chloraseptic Sore Throat Lozenge BUCCAL 1 lozenge Q4H PRN Administration sore throat Calcium Carbonate 500 mg 03/28/18 09:00 04/05/18 08:35 Oscal PO 500 mg BID [facility] Administration Calcium Carbonate 500 mg 03/29/18 08:16 04/04/18 03:49 Tums Chew CHEW 500 mg Q2H PRN Administration DYSPEPSIA Carvedilol 12.5 mg 03/28/18 09:00 04/05/18 08:35 Coreg PO 12.5 mg BID [facility] Administration Clonidine HCl 0.1 mg 03/29/18 08:15 03/30/18 16:24 Catapres PO 0.1 mg Q6H PRN Administration SBP>160, DBP>90 Diphenoxylate HCl/Atropine 1 tab 03/28/18 09:00 04/05/18 13:18 Lomotil PO Not Given TID [facility] Enoxaparin Sodium 40 mg 03/28/18 09:00 04/05/18 08:42 Lovenox Inj SQ Not Given DAILY [facility] Heparin Sodium (Porcine) 0 unit 03/28/18 01:25 03/28/18 05:44 Heparin Central Flush IV.FLUSH 250 unit PRN PRN Administration Flush each lumen Heparin Sodium (Porcine) 0 unit 03/28/18 09:00 04/05/18 08:36 Heparin Central Flush IV.FLUSH Not Given DAILY [facility] Hydroxyzine HCl 50 mg 04/03/18 03:11 04/05/18 13:19 Vistaril Inj IM 50 mg Q6H PRN Administration pruritis Fat Emulsion Intravenous 250 mls @ 31.25 mls/hr 03/30/18 20:00 04/05/18 04:34 Intralipid 20% Inj IV.SIG Infused Q24H [facility] Infusion Dextrose/Sodium Chloride 1,000 mls @ 200 mls/hr 03/30/18 11:30 04/05/18 13:18 D5w/Normal Saline Inj IV.CONT Not Given .Q5H [facility] Sodium Chloride 1,000 mls @ 250 mls/hr 03/30/18 11:30 04/05/18 14:49 Ns Inj IV.CONT Not Given .Q4H [facility] Potassium Chloride 20 meq in 100 mls @ 100 mls/hr 03/30/18 11:28 04/01/18 14: 57 Kcl 20 Meq Premix Inj IV.SIG Infused Q1H PRN Infusion for K+ 4.5 to 5 Sodium Chloride 11 meq/ Sodium 2,059.6937 mls @ 65.009 mls/hr 03/31/18 20:00 04/04/18 20:25 Acetate 59 meq/ Potassium IV.SIG 65.01 mls/hr Chloride 40 meq/ Magnesium Q24H [facility] Administration Chloride 10 meq/ Calcium Chloride 9 meq/ Multivitamins 10 ml/ Folic Acid 1 mg/ Insulin Human Regular 30 units / Amino Acids/Electrolytes/ Dextrose Lactated Ringer's 1,000 mls @ 30 mls/hr 04/05/18 13:30 04/05/18 13:36 Lr 1000 Ml Inj IV.SIG 04/06/18 13:29 Not Given .Q24H [facility] Sodium Chloride 500 mls @ 30 mls/hr 04/05/18 14:00 04/05/18 13:43 Ns Inj IV.SIG Not Given .Q10H [facility] Insulin Detemir 5 unit 04/05/18 13:45 04/05/18 14:45 Levemir Inj SQ 5 unit BID [facility] Administration Insulin Human Regular 0 units 03/31/18 12:00 04/05/18 13:18 Novolin R Correctional Sugar Inj SQ 3 units ACHS [facility] Administration Protocol Nystatin 5 ml 04/02/18 10:00 04/05/18 13:17 Mycostatin Liq SWISH-SWAL 5 ml QID [facility] Administration Ondansetron HCl 4 mg 04/01/18 00:33 04/05/18 13:18 Zofran Inj IV.PUSH 4 mg Q6H PRN Administration NAUSEA OR VOMITING Pantoprazole Sodium 40 mg 03/28/18 09:00 04/05/18 08:35 Protonix PO 40 mg BID [facility] Administration Potassium Phos/Sodium Phos 250 mg 04/03/18 13:00 04/05/18 13:18 K-Phos Neutral PO 250 mg TID [facility] Administration Prednisone 10 mg 03/28/18 09:00 04/05/18 08:35 Deltasone PO 10 mg DAILY [facility] Administration Promethazine HCl 25 mg 03/29/18 12:06 04/03/18 02:34 Phenergan PO 25 mg Q4H PRN Administration NAUSEA OR VOMITING Senna/Docusate Sodium 1 tab 03/28/18 09:00 04/05/18 08:35 Saray-Colace PO 1 tab BID [facility] Administration Sodium Chloride 0 ml 03/28/18 09:00 04/05/18 08:36 Ns Flush IV.FLUSH 10 ml DAILY [facility] Administration Sodium Chloride 0 ml 03/28/18 01:25 03/28/18 05:45 Ns Flush IV.FLUSH 10 ml PRN PRN Administration FLUSH AFTER USING IV ACCESS Objective Remarks: GENERAL: thin lady no distress SKIN: Warm and dry. HEAD: Normocephalic. EYES: No scleral icterus. No injection or drainage. RESPIRATORY: No accessory muscle use. GASTROINTESTINAL: mild diffuse tenderness EXTREMITIES: No edema. MUSCULOSKELETAL: Adequate muscle tone. NEUROLOGICAL: No obvious focal deficit. Awake, alert, and oriented x3. PSYCHIATRIC: Appropriate mood and affect; insight and judgment normal. Assessment/Plan - Plan 1. thrombocytosis: work up at [facility] and per outside notes is reactive. Will follow up JAK2, CALR, MPL studies. Will order flow cytometry. Will order repeat pathology review of slide now that patient has thrombocytosis. Suspicion overall is low for underlying MPN as cause of thrombocytosis. WBC elevated, however no early cells present on differential. She has no flushing, pruritis. She does has thrombocytosis but not in unusual locations. She has elevated ESR. ACD per iron studies. Reactive causes can include infection, inflammation, recent transplant, surgery , trauma. 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 Platelet count rising. Possibly some degree of rebound thrombocytosis with recent thrombocytopenia. Patient declines anagrelide. She has been on hydrea in the past with side effect of severe pancytopenia. Generally in patient with reactive thrombocytosis would not treat with medications however given past history of VTE feel that it is reasonable to start this medication in this case. 2. 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 Previously on treatment dose of 60 mg subq daily due to recent VTE. Would increase to treatment dose as soon as possible. Lovenox reinitiated today. 3. GIB: GI team following. Hemoglobin roughly stable. s/p GI procedure with no active bleeding.
[2018-04-05] MEDS: [UNRECOGNIZED DRUG - OTHER] IV.SIG SCH ×9 (21:14)
[2018-04-06] MEDS: Dextrose 5%/NaCl 0.9% Inj 1,000 ML IV.CONT SCH ×5 (03:07→23:48)
[2018-04-06] MEDS: Sod Chloride 0.9% Inj 1,000 ML IV.CONT SCH ×6 (03:08→23:49)
[2018-04-06] MEDS: Insulin NovoLIN Regular Correctional Sugar Inj SQ SCH ×4 (08:41→20:58)
[2018-04-06] MEDS: Enoxaparin Inj 40 MG/0.4 ML Syringe SQ SCH (08:42)
[2018-04-06] MEDS: Heparin Central Flush 100 UNIT/ML 5 ML Vial IV.FLUSH SCH (08:42)
[2018-04-06] MEDS: Diphenoxylate/Atropine 2.5/0.025 MG Tablet PO SCH ×3 (08:52→17:05)
[2018-04-06] MEDS: predniSONE 10 MG Tablet PO SCH (08:52)
[2018-04-06] MEDS: Carvedilol 12.5 MG Tablet PO SCH ×2 (08:53→20:48)
[2018-04-06] MEDS: Lipase/Protease/Amylase 24/76/120 DR Capsule PO SCH ×3 (08:53→17:05)
[2018-04-06] MEDS: Calcium Carbonate 500 MG Tablet PO SCH ×2 (08:53→20:47)
[2018-04-06] MEDS: Nystatin Liq 500,000 UNIT/5 ML UDC SWISH-SWAL SCH ×4 (08:53→20:48)
[2018-04-06] MEDS: Senna/Docusate Sodium 8.6/50 MG Tablet PO SCH ×2 (08:53→20:47)
[2018-04-06] MEDS: Potassium Phos/Sodium Phos 250 MG Tablet PO SCH ×3 (08:59→17:05)
[2018-04-06] MEDS: Insulin Detemir Inj 1,000 UNIT/10 ML Vial SQ SCH ×2 (08:59→20:57)
--- NOTE | 2018-04-06 09:39 | P.PNID ---
Subjective Remarks: 57 year old female with very complicated surgical Hx, S/P renal transplant admitted with fever. Notes reviewed Has remained afebrile Last seen 04/01 Since has had persistent and worsening abdominal pain Has chronic nausea, no vomiting Having BM, loose; none today Had EGD yesterday - retained fluid and food in stomach Sigmoidoscopy - some hyperemia at ananstomosis Has had elevated WBC since 04/04 ALso platelets have been rising CT A/P no new findings CT chest with atelectasis US BLE - non-occlusive thrombus in L, prob residual of her previous LLE DVT UA ok BC negative Does not feel good today Still with perstent and severe abdominal pain Pain did not improve after emptying of her stomach during EGD Antibiotics: None Lines: Ward Past Medical History: Reviewed Allergies/Adverse Reactions: Allergies metronidazole [From Flagyl] Allergy (Mild, Verified 03/27/18 18:27) Hives oxycodone Allergy (Mild, Verified 03/27/18 18:27) Redness of Skin oxytetracycline [From Terramycin] Allergy (Mild, Verified 03/27/18 18:27) Hives fentanyl Allergy (Verified 04/05/18 17:07) Edema filgrastim [From Neupogen] Allergy (Verified 04/05/18 10:48) Anaphylaxis Objective Vital Signs 04/05/18 10:00 04/05/18 11:00 04/05/18 12:00 Temperature Pulse Rate 77 72 67 Respiratory Rate Blood Pressure Pulse Oximetry 04/05/18 12:33 04/05/18 13:00 04/05/18 14:00 Temperature 97.6 F Pulse Rate 74 83 70 Respiratory Rate 18 Blood Pressure 123/75 Pulse Oximetry 97 04/05/18 15:00 04/05/18 16:00 04/05/18 17:00 Temperature 98.3 F Pulse Rate 70 71 68 Respiratory Rate 16 Blood Pressure 128/66 Pulse Oximetry 97 04/05/18 18:00 04/05/18 19:00 04/05/18 20:00 Temperature 98.7 F Pulse Rate 69 72 74 Respiratory Rate 16 Blood Pressure 160/77 H Pulse Oximetry 96 04/05/18 21:00 04/05/18 22:00 04/05/18 23:00 Temperature 99 F Pulse Rate 73 75 79 Respiratory Rate 16 Blood Pressure 134/69 Pulse Oximetry 96 04/06/18 00:00 04/06/18 01:00 04/06/18 02:00 Temperature Pulse Rate 81 77 81 Respiratory Rate Blood Pressure Pulse Oximetry 04/06/18 03:00 04/06/18 04:00 04/06/18 05:00 Temperature 99 F Pulse Rate 80 82 82 Respiratory Rate 16 Blood Pressure 146/74 H Pulse Oximetry 96 04/06/18 05:52 04/06/18 07:00 04/06/18 08:00 Temperature 99 F Pulse Rate 88 85 84 Respiratory Rate 16 Blood Pressure 177/82 H Pulse Oximetry 96 Intake & Output 04/05/18 04/06/18 04/06/18 18:59 06:59 18:59 Intake Total 480 / 480 2549.6937 / 2549.6937 Output Total 1300 / 1300 600 / 600 Balance -820 / -820 1949.6937 / 1949.6937 Weight 61.5 kg Intake: IV 2309.6937 / 2309.6937 Intralipid 20% Inj 250 ML @ 31. 250 / 250 25 mls/hr IV.SIG Q24H [facility] Rx#: [id number] Sodium Chloride 23.4% Inj 11 9.6937 / 2059.6937 MEQ Sodium Acetate Inj 59 MEQ KCl Inj 40 MEQ Magnesium Chloride Inj 10 MEQ Calcium Chloride Inj 9 MEQ MVI-12 Inj 10 ML Folvite Inj 1 MG NovoLIN R Inj 30 UNITS In TPN Fluid 2 Liter 2,000 ML @ 65.009 mls/hr IV.SIG Q24H [facility] Rx#:[id number] Oral 480 / 480 240 / 240 Output: Urine 1300 / 1300 600 / 600 Other: Date of Last Bowel Movement 04/05/18 # Bowel Movements 1 04/04/18 14:11 Blood - Line Aerobic Blood Culture - Preliminary No growth in 1 day 04/04/18 14:11 Blood - Line Anaerobic Blood Culture - Preliminary No growth in 1 day 04/04/18 14:15 Blood - Peripheral Aerobic Blood Culture - Preliminary No growth in 1 day 04/04/18 14:15 Blood - Peripheral Anaerobic Blood Culture - Preliminary No growth in 1 day Lab - Hematology Results 04/04/18 04/05/18 04/05/18 11:03 13:08 13:08 WBC 13.1 H 14.1 H RBC 3.18 L 3.28 L Hgb 8.9 L 9.2 L Hct 28.5 L 29.6 L MCV 89.8 D 90.3 MCH 28.1 28.0 MCHC 31.3 L 31.0 L RDW 17.0 17.6 H Plt Count 872 H 974 H MPV 8.9 8.3 Neut % (Auto) 78.9 H 84.0 H Lymph % (Auto) 8.0 L 3.5 L [place] % (Auto) 10.8 H 10.8 H Eos % (Auto) 1.5 1.2 Baso % (Auto) 0.8 0.5 Neut # (Auto) 10.3 H 11.9 H Lymph # (Auto) 1.0 0.5 L [place] # (Auto) 1.4 H 1.5 H Eos # (Auto) 0.2 0.2 Baso # (Auto) 0.1 0.1 WBC Differential . . Differential Comment Auto diff final Auto diff final Smear Path Review Lab - Chemistry Results 04/04/18 04/04/18 04/04/18 11:03 11:26 16:12 Sodium 133 L Potassium 4.8 Chloride 93 L Carbon Dioxide 31.3 Anion Gap 9 BUN 34 H Creatinine 1.33 H Estimated GFR 41 L POC Glucose 182 H 220 H Random Glucose 364 H Calcium 9.4 D Phosphorus 2.2 L Magnesium 1.6 04/04/18 04/05/18 04/05/18 20:29 10:55 12:49 Sodium Potassium Chloride Carbon Dioxide Anion Gap BUN Creatinine Estimated GFR POC Glucose 228 H 302 H 206 H Random Glucose Calcium Phosphorus Magnesium 04/05/18 04/05/18 04/05/18 13:08 16:24 20:06 Sodium 132 L Potassium 4.7 Chloride 94 L Carbon Dioxide 29.1 Anion Gap 9 BUN 36 H Creatinine 1.37 H Estimated GFR 40 L POC Glucose 161 H 193 H Random Glucose 349 H Calcium 10.0 Phosphorus 2.8 Magnesium 1.7 Imaging: ITS Impressions Chest X-Ray 03/27/18 19:28 CONCLUSION: No acute cardiopulmonary disease. There is no evidence of pneumonia. Renal Ultrasound 03/29/18 00:00 CONCLUSION: 1. Very mild hydronephrosis of the transplant kidney. 2. 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 Abdomen X-Ray 03/30/18 14:53 CONCLUSION: No dilated loops of bowel observed. Abdomen/Pelvis CT 04/04/18 00:00 CONCLUSION: 1. The only new findings when compared to prior CT on 03/27/2018 include distention of the stomach and mild bibasilar atelectasis. Chest CT 04/04/18 00:00 CONCLUSION: 1. Increase in subsegmental basilar atelectasis since March 27. No new effusion. Upper lungs clear. No new adenopathy. Venous Doppler Study 04/04/18 13:29 CONCLUSION: 1. Nonocclusive small volume thrombus involving the distal superficial femoral vein and peroneal vein on the left. This could relate to residual chronic thrombus from the patient's prior DVT. 2. No thrombus involving the right lower extremity. 3. Nothing to account for bilateral lower extremity swelling. Physical Exam: GENERAL: awake and alert, not in respiratory distress. SKIN: Cool and dry. No generalized rash, dry skin. HEAD: Atraumatic. Normocephalic. No temporal wasting, or tenderness. EYES: [place] conjunctiva. No petechia or hemorrhage. Pupils equal, round and reactive to light. Extraocular movements full and intact. No scleral icterus. No injection or drainage. EARS, NOSE AND THROAT: Nose without bleeding or purulent nasal discharge. Mucous membranes pink and moist. No oral lesions noted. No exudate. No oral thrush. NECK: Trachea midline. Supple and not tender, no meningeal signs CARDIOVASCULAR: Regular rate and rhythm. No murmurs, rubs or gallops heard RESPIRATORY: Clear to auscultation. Breath sounds equal bilaterally. No rales , wheezing or rhonchi ABDOMEN: Soft, flat, not distended, with diffuse abdominal tenderness, not guarding, no rebound. Has healed midline incisions. EXTREMITIES: No clubbing, cyanosis, or edema. No calf tenderness. Well perfused and warm. NEUROLOGICAL: Non-focal. PSYCHIATRIC: Normal affect, calm and cooperative. 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
--- NOTE | 2018-04-06 09:42 | P.PN ---
Subjective Interval history: This is a pleasant 57 y/o Female with DM II, dumping syndrome, she is on TPN, chronic diarrhea, GERD, Splenectomy gastroparesis, history of DVT on Lovenox subcu, and renal transplant. Patient was initially referred to the emergency room at [facility] by her transplant physician due to fever. found with Diarrhea, had Esophagitis [place] treated with Diflucan, Colonoscopy october 2017 benign polyps, Pancreatectomy 2010, revision of anastomosis from Liver to Intestines January 2018, Renal Transplant June 2017, Recent DVR August 2017 , developed rectal bleed 04/03 Improving Diarrhea with Lomotil, GI recommended clear liquid diet, PPI, Imodium , monitor laboratory, Creon, Imuran. continue to hold Lovenox. thrombocytosis. history of VTE on Lovenox 60 mg BID at this time on hold, Seen in her Bedroom at this time Doctor Atul in to see the patient and discuss in my presence with Doctor Gilberto Patel will perform Sigmoidoscopy tomorrow morning. 04/05: Seen by doctor Gilberto Patel today, no obvious source of infection yet identified, Working on Prograf Medication recommended to accept Anagrelide by Hematology and Oncology to reduce Leukocytosis, Hematology recommended to start again Lovenox 60 [address] they will [address] the orders, if she is unable to tolerate anticoagulation will perform ICF Status post Sigmoidoscopy evidence of a Hyperemic appearing and inflamed prior surgical anastomosis, Internal Hemorrhoids as per Nephrology Creatinine fluctuates in 1.3. EGD LA Class A esophagitis, Food residue in the gastric body, Normal duodenal Mucosa, recommended to continue PPIs. and Liquid diet, as per doctor Patel wants her Pain medicine to be handled better was asked for Palliative Care Consult we do not have Pain medicine specialist. removed Morphine IV after discuss with patient about this and she will continue by Mouth. 04/06: Seen by ID specialist today following CBC, Temperature, no infection found, Leukocytosis so far no new infection EBV, CMV negative, Hold Off antibiotics. Discussed at this time with Doctor Gilberto Patel. the patient developed Headache discussed with content production specialist and Dilaudid was increased also given pseudoephedrine PRN, for short period of time, No clear Plan, but offered by Surgical team possible Stomach, Pancreas, Small intestine and Colon transplant. Plan to discontinue TPN, added Diazepam one dose and follow. Physical Exam Vital signs: Vital Signs 04/05/18 10:00 04/05/18 11:00 04/05/18 12:00 Temperature Pulse Rate 77 72 67 Respiratory Rate Blood Pressure Pulse Oximetry 04/05/18 12:33 04/05/18 13:00 04/05/18 14:00 Temperature 97.6 F Pulse Rate 74 83 70 Respiratory Rate 18 Blood Pressure 123/75 Pulse Oximetry 97 04/05/18 15:00 04/05/18 16:00 04/05/18 17:00 Temperature 98.3 F Pulse Rate 70 71 68 Respiratory Rate 16 Blood Pressure 128/66 Pulse Oximetry 97 04/05/18 18:00 04/05/18 19:00 04/05/18 20:00 Temperature 98.7 F Pulse Rate 69 72 74 Respiratory Rate 16 Blood Pressure 160/77 H Pulse Oximetry 96 04/05/18 21:00 04/05/18 22:00 04/05/18 23:00 Temperature 99 F Pulse Rate 73 75 79 Respiratory Rate 16 Blood Pressure 134/69 Pulse Oximetry 96 04/06/18 00:00 04/06/18 01:00 04/06/18 02:00 Temperature Pulse Rate 81 77 81 Respiratory Rate Blood Pressure Pulse Oximetry 04/06/18 03:00 04/06/18 04:00 04/06/18 05:00 Temperature 99 F Pulse Rate 80 82 82 Respiratory Rate 16 Blood Pressure 146/74 H Pulse Oximetry 96 04/06/18 05:52 04/06/18 07:00 04/06/18 08:00 Temperature 99 F Pulse Rate 88 85 84 Respiratory Rate 16 Blood Pressure 177/82 H Pulse Oximetry 96 04/06/18 09:00 Temperature Pulse Rate 81 Respiratory Rate Blood Pressure Pulse Oximetry Intake & Output 04/05/18 04/06/18 04/06/18 18:59 06:59 18:59 Intake Total 480 / 480 254.37 / 254.6937 Output Total 1300 / 1300 600 / 600 Balance -820 / -820 194.6936 / 194.37 Weight 61.5 kg Intake: IV / Intralipid 20% Inj 250 ML @ 31. 250 / 250 25 mls/hr IV.SIG Q24H [facility] Rx#: [id number] Sodium Chloride 23.4% Inj 11 / MEQ Sodium Acetate Inj 59 MEQ KCl Inj 40 MEQ Magnesium Chloride Inj 10 MEQ Calcium Chloride Inj 9 MEQ MVI-12 Inj 10 ML Folvite Inj 1 MG NovoLIN R Inj 30 UNITS In TPN Fluid 2 Liter 2,000 ML @ 65.009 mls/hr IV.SIG Q24H [facility] Rx#:[id number] Oral 480 / 480 240 / 240 Output: Urine 1300 / 1300 600 / 600 Other: Date of Last Bowel Movement 04/05/18 # Bowel Movements 1 Narrative: GENERAL: Well-developed patient, mild distress due to headache. CARDIOVASCULAR: Regular rate and rhythm without murmurs, gallops, or rubs. RESPIRATORY: Clear to auscultation. Breath sounds equal bilaterally. No wheezes , rales, or rhonchi. GASTROINTESTINAL: Abdomen soft, tender on palpation specially on left flank. MUSCULOSKELETAL: Extremities without clubbing, cyanosis, or edema. NEURO: Alert & Oriented x4 to person, place, time, situation. Moves all ext x4 Results - Labs CBC & Chem 7: 04/06/18 10:59 04/06/18 10:59 Laboratory Results - last 24 hr 04/03/18 04/03/18 04/05/18 10:35 10:35 10:55 WBC RBC Hgb Hct MCV MCH MCHC RDW Plt Count MPV Neut % (Auto) Lymph % (Auto) Hernando % (Auto) Eos % (Auto) Baso % (Auto) Neut # (Auto) Lymph # (Auto) Hernando # (Auto) Eos # (Auto) Baso # (Auto) WBC Differential Differential Comment Smear Path Review Sodium Potassium Chloride Carbon Dioxide Anion Gap BUN Creatinine Estimated GFR POC Glucose 302 H Random Glucose Calcium Phosphorus Magnesium Tacrolimus CMV Qnt PCR IU/mL Undetected EBV (Quant-PCR) Quant Undetected 04/05/18 04/05/18 04/05/18 12:49 13:08 13:08 WBC RBC Hgb Hct MCV MCH MCHC RDW Plt Count MPV Neut % (Auto) Lymph % (Auto) Hernando % (Auto) Eos % (Auto) Baso % (Auto) Neut # (Auto) Lymph # (Auto) Hernando # (Auto) Eos # (Auto) Baso # (Auto) WBC Differential Differential Comment Smear Path Review Sodium 132 L Potassium 4.7 Chloride 94 L Carbon Dioxide 29.1 Anion Gap 9 BUN 36 H Creatinine 1.37 H Estimated GFR 40 L POC Glucose 206 H Random Glucose 349 H Calcium 10.0 Phosphorus 2.8 Magnesium 1.7 Tacrolimus 10.1 CMV Qnt PCR IU/mL EBV (Quant-PCR) Quant 04/05/18 04/05/18 04/05/18 13:08 13:08 16:24 WBC 14.1 H RBC 3.28 L Hgb 9.2 L Hct 29.6 L MCV 90.3 MCH 28.0 MCHC 31.0 L RDW 17.6 H Plt Count 974 H MPV 8.3 Neut % (Auto) 84.0 H Lymph % (Auto) 3.5 L Hernando % (Auto) 10.8 H Eos % (Auto) 1.2 Baso % (Auto) 0.5 Neut # (Auto) 11.9 H Lymph # (Auto) 0.5 L Hernando # (Auto) 1.5 H Eos # (Auto) 0.2 Baso # (Auto) 0.1 WBC Differential . Differential Comment Auto diff final Smear Path Review Sodium Potassium Chloride Carbon Dioxide Anion Gap BUN Creatinine Estimated GFR POC Glucose 161 H Random Glucose Calcium Phosphorus Magnesium Tacrolimus CMV Qnt PCR IU/mL EBV (Quant-PCR) Quant 04/05/18 20:06 WBC RBC Hgb Hct MCV MCH MCHC RDW Plt Count MPV Neut % (Auto) Lymph % (Auto) Hernando % (Auto) Eos % (Auto) Baso % (Auto) Neut # (Auto) Lymph # (Auto) Hernando # (Auto) Eos # (Auto) Baso # (Auto) WBC Differential Differential Comment Smear Path Review Sodium Potassium Chloride Carbon Dioxide Anion Gap BUN Creatinine Estimated GFR POC Glucose 193 H Random Glucose Calcium Phosphorus Magnesium Tacrolimus CMV Qnt PCR IU/mL EBV (Quant-PCR) Quant Microbiology 04/04/18 14:11 Blood - Line Aerobic Blood Culture - Preliminary No growth in 1 day 04/04/18 14:11 Blood - Line Anaerobic Blood Culture - Preliminary No growth in 1 day 04/04/18 14:15 Blood - Peripheral Aerobic Blood Culture - Preliminary No growth in 1 day 04/04/18 14:15 Blood - Peripheral Anaerobic Blood Culture - Preliminary No growth in 1 day Assessment and Plan - Assessment (1) SIRS (systemic inflammatory response syndrome) Code(s): R65.10 - Systemic inflammatory response syndrome (SIRS) of non- infectious origin without acute organ dysfunction Status: Acute (2) H/O kidney transplant Code(s): Z94.0 - Kidney transplant status Status: Acute (3) Abdominal pain Code(s): R10.9 - Unspecified abdominal pain Status: Acute (4) On total parenteral nutrition (TPN) Code(s): Z78.9 - Other specified health status Status: Acute (5) Renal insufficiency Code(s): N28.9 - Disorder of kidney and ureter, unspecified Status: Acute (6) DM (diabetes mellitus) Code(s): E11.9 - Type 2 diabetes mellitus without complications Status: Acute - Plan Fever, SIRS- fever now has resolved. Chest x-ray was within normal limits, urinalysis showed no infection Blood cultures thus far negative Seen by ID specialist today following CBC, Temperature, no infection found, Leukocytosis so far no new infection EBV, CMV negative, Hold Off antibiotics rectal bleed will monitor H/H- GI consulted. 04/05: Status post Sigmoidoscopy evidence of a Hyperemic appearing and inflamed prior surgical anastomosis, Internal Hemorrhoids, Status post EGD LA Class A esophagitis, Food residue in the gastric body, Normal duodenal Mucosa, recommended to continue PPIs. and Liquid diet. H/o renal transplant creatinine worsened today to 1.37 Transplanted in June 2017 at [facility], Dr. Louis Continue Prograf, adjusted by nephrology 04/06. Discussed at this time with Doctor Gilberto Patel. the patient developed Headache discussed with content production specialist and Dilaudid was increased also given pseudoephedrine PRN, for short period of time, No clear Plan, but offered by Surgical team possible Stomach, Pancreas, Small intestine and Colon transplant. Plan to discontinue TPN, added Diazepam one dose and follow. Thrombocytosis reactive. Patient has a history of thrombophilia with numbers up to 1.2 million, initially trended downwards- l resumed Anagrelide - but the patient refused. today recommended to the patient to accept the medicine. 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 continue with left flank pain, status post Sigmoidoscopy and EGD read above. asked for CT abdomen and Pelvis Stomach distention and basal atelectasis on both lungs. Type 2 diabetes- Uncontrolled will need to increase Levemir but today will have a procedure continue sliding scale. initially started on insulin drip which was later on stopped; - now on regular insulin with TPN- along with accu-check with SSI. oral thrush; continue on Nystatin S and Swallow. DVT Prophylaxis Lovenox Code Status: Full code. Discussed Condition With: Patient lighting specialist Transplant Surgery Doctor Jorge Discharge Planning: not yet cleared by specialists.
[2018-04-06] MEDS ORDERED: diazePAM 5 MG Tablet PO ONE (10:46)
[2018-04-06 11:23] LABS: Baso % (Auto) 0.3 % (0.0-2.0); Eos # (Auto) 0.2 th/mm3 (0.0-0.4); Eos % (Auto) 1.2 % (0.0-4.0); Hematocrit 26.5 % (35.0-46.0); Hemoglobin 9.2 gm/dL (11.6-15.3); Lymph # (Auto) 0.5 th/mm3 (1.0-4.8); Lymph % (Auto) 2.9 % (9.0-44.0); Mean Corpuscular HGB Conc 34.7 % (32.0-36.0); Mean Corpuscular Hemoglobin 30.5 pg (27.0-34.0); Mean Corpuscular Volume 87.8 fL (80.0-100.0); Mean Platelet Volume 8.5 fL (7.0-11.0); Mono # (Auto) 1.9 th/mm3 (0.0-0.9); Mono % (Auto) 11.7 % (0.0-8.0); Neut # (Auto) 13.7 th/mm3 (1.8-7.7); Neut % (Auto) 83.9 % (16.0-70.0); Platelet Count 934 th/mm3 (150-450); Red Blood Count 3.02 mil/mm3 (4.00-5.30); Red Cell Distribution Width 16.7 % (11.6-17.2); White Blood Count 16.3 th/mm3 (4.0-11.0)
[2018-04-06 11:38] LABS: Calcium 9.9 mg/dL (8.5-10.1); Carbon Dioxide 29.4 meq/L (21.0-32.0); Potassium 4.6 meq/L (3.5-5.1)
--- NOTE | 2018-04-06 12:07 | P.PNGI ---
Subjective Interval history: Patient is resting in bed, RN at bedside. Patient continues to have diarrhea, this is chronic for her since she has had her entire colon resected and only approximately 33 cm of her small intestine remaining. 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 Patient's first bowel resection was done in 2010 but states that she has had multiple over the years. She is currently on TPN and has been for about 7 months. She is able to take small amounts of p.o. Patient states she has known gastroparesis, has previously tried erythromycin with no improvement. Was on Reglan prior to admission. Patient currently reports some pain in the left side of her abdomen, states is a chronic pain but she feels as if it is worse today. Denies any nausea or vomiting at present <Rose Angelo - Last Filed: 04/06/18 11:55> Physical Exam Vital signs: Vital Signs 04/05/18 12:00 04/05/18 12:33 04/05/18 13:00 Temperature 97.6 F Pulse Rate 67 74 83 Respiratory Rate 18 Blood Pressure 123/75 Pulse Oximetry 97 04/05/18 14:00 04/05/18 15:00 04/05/18 16:00 Temperature 98.3 F Pulse Rate 70 70 71 Respiratory Rate 16 Blood Pressure 128/66 Pulse Oximetry 97 04/05/18 17:00 04/05/18 18:00 04/05/18 19:00 Temperature 98.7 F Pulse Rate 68 69 72 Respiratory Rate 16 Blood Pressure 160/77 H Pulse Oximetry 96 04/05/18 20:00 04/05/18 21:00 04/05/18 22:00 Temperature Pulse Rate 74 73 75 Respiratory Rate Blood Pressure Pulse Oximetry 04/05/18 23:00 04/06/18 00:00 04/06/18 01:00 Temperature 99 F Pulse Rate 79 81 77 Respiratory Rate 16 Blood Pressure 134/69 Pulse Oximetry 96 04/06/18 02:00 04/06/18 03:00 04/06/18 04:00 Temperature 99 F Pulse Rate 81 80 82 Respiratory Rate 16 Blood Pressure 146/74 H Pulse Oximetry 96 04/06/18 05:00 04/06/18 05:52 04/06/18 07:00 Temperature 99 F Pulse Rate 82 88 85 Respiratory Rate 16 Blood Pressure 177/82 H Pulse Oximetry 96 04/06/18 08:00 04/06/18 09:00 04/06/18 10:00 Temperature Pulse Rate 84 81 82 Respiratory Rate Blood Pressure Pulse Oximetry 04/06/18 11:00 Temperature 98.6 F Pulse Rate 83 Respiratory Rate 16 Blood Pressure 142/85 H Pulse Oximetry 97 Intake & Output 04/05/18 04/06/18 04/06/18 18:59 06:59 18:59 Intake Total 480 / 480 2549.6937 / 2549.6937 Output Total 1300 / 1300 600 / 600 Balance -820 / -820 1949.6937 / 1949.6937 Weight 61.5 kg Intake: IV 2309.6937 / 2309.6937 Intralipid 20% Inj 250 ML @ 31. 250 / 250 25 mls/hr IV.SIG Q24H RONALD Rx#: [id number] Sodium Chloride 23.4% Inj 11 2058.6937 / 2059.6937 MEQ Sodium Acetate Inj 59 MEQ KCl Inj 40 MEQ Magnesium Chloride Inj 10 MEQ Calcium Chloride Inj 9 MEQ MVI-12 Inj 10 ML Folvite Inj 1 MG NovoLIN R Inj 30 UNITS In TPN Fluid 2 Liter 2,000 ML @ 65.009 mls/hr IV.SIG Q24H RONALD Rx#:[id number] Oral 480 / 480 240 / 240 Output: Urine 1300 / 1300 600 / 600 Other: Date of Last Bowel Movement 04/05/18 # Bowel Movements 1 - Constitutional no acute distress - Routine HEENT Exam Head: Present: normocephalic, atraumatic - Routine Respiratory Exam Absent: accessory muscle use - Routine Abdominal Exam Present: soft, normoactive bowel sounds, tenderness. Absent: distended - Routine Skin Exam Present: dry, warm <Rose Angelo - Last Filed: 04/06/18 11:55> Vital signs: Vital Signs 04/05/18 16:00 04/05/18 17:00 04/05/18 18:00 Temperature Pulse Rate 71 68 69 Respiratory Rate Blood Pressure Pulse Oximetry 04/05/18 19:00 04/05/18 20:00 04/05/18 21:00 Temperature 98.7 F Pulse Rate 72 74 73 Respiratory Rate 16 Blood Pressure 160/77 H Pulse Oximetry 96 04/05/18 22:00 04/05/18 23:00 04/06/18 00:00 Temperature 99 F Pulse Rate 75 79 81 Respiratory Rate 16 Blood Pressure 134/69 Pulse Oximetry 96 04/06/18 01:00 04/06/18 02:00 04/06/18 03:00 Temperature 99 F Pulse Rate 77 81 80 Respiratory Rate 16 Blood Pressure 146/74 H Pulse Oximetry 96 04/06/18 04:00 04/06/18 05:00 04/06/18 05:52 Temperature Pulse Rate 82 82 88 Respiratory Rate Blood Pressure Pulse Oximetry 04/06/18 07:00 04/06/18 08:00 04/06/18 09:00 Temperature 99 F Pulse Rate 85 84 81 Respiratory Rate 16 Blood Pressure 177/82 H Pulse Oximetry 96 04/06/18 10:00 04/06/18 11:00 04/06/18 12:00 Temperature 98.6 F Pulse Rate 82 83 84 Respiratory Rate 16 Blood Pressure 142/85 H Pulse Oximetry 97 04/06/18 13:00 04/06/18 14:00 Temperature Pulse Rate 80 81 Respiratory Rate Blood Pressure Pulse Oximetry Intake & Output 04/05/18 04/06/18 04/06/18 18:59 06:59 18:59 Intake Total 480 / 480 2549.6937 / 2549.6937 Output Total 1300 / 1300 600 / 600 Balance -820 / -820 1949.6937 / 1949.6937 Weight 61.5 kg Intake: IV 2309.6937 / 2309.6937 Intralipid 20% Inj 250 ML @ 31. 250 / 250 25 mls/hr IV.SIG Q24H RONALD Rx#: [id number] Sodium Chloride 23.4% Inj 11 2058.6937 / 9.6937 MEQ Sodium Acetate Inj 59 MEQ KCl Inj 40 MEQ Magnesium Chloride Inj 10 MEQ Calcium Chloride Inj 9 MEQ MVI-12 Inj 10 ML Folvite Inj 1 MG NovoLIN R Inj 30 UNITS In TPN Fluid 2 Liter 2,000 ML @ 65.009 mls/hr IV.SIG Q24H RONALD Rx#:[id number] Oral 480 / 480 240 / 240 Output: Urine 1300 / 1300 600 / 600 Other: Date of Last Bowel Movement 04/05/18 # Bowel Movements 1 <Miller Pollard - Last Filed: 04/06/18 15:13> Results - Labs CBC & Chem 7: 04/06/18 10:59 04/06/18 10:59 Laboratory Results - last 24 hr 04/03/18 04/03/18 04/05/18 10:35 10:35 12:49 WBC RBC Hgb Hct MCV MCH MCHC RDW Plt Count MPV Neut % (Auto) Lymph % (Auto) Graves % (Auto) Eos % (Auto) Baso % (Auto) Neut # (Auto) Lymph # (Auto) Graves # (Auto) Eos # (Auto) Baso # (Auto) WBC Differential Differential Comment Smear Path Review Sodium Potassium Chloride Carbon Dioxide Anion Gap BUN Creatinine Estimated GFR POC Glucose 206 H Random Glucose Calcium Phosphorus Magnesium Tacrolimus CMV Qnt PCR IU/mL Undetected EBV (Quant-PCR) Quant Undetected 04/05/18 04/05/18 04/05/18 13:08 13:08 13:08 WBC 14.1 H RBC 3.28 L Hgb 9.2 L Hct 29.6 L MCV 90.3 MCH 28.0 MCHC 31.0 L RDW 17.6 H Plt Count 974 H MPV 8.3 Neut % (Auto) 84.0 H Lymph % (Auto) 3.5 L Graves % (Auto) 10.8 H Eos % (Auto) 1.2 Baso % (Auto) 0.5 Neut # (Auto) 11.9 H Lymph # (Auto) 0.5 L Graves # (Auto) 1.5 H Eos # (Auto) 0.2 Baso # (Auto) 0.1 WBC Differential . Differential Comment Auto diff final Smear Path Review Sodium 132 L Potassium 4.7 Chloride 94 L Carbon Dioxide 29.1 Anion Gap 9 BUN 36 H Creatinine 1.37 H Estimated GFR 40 L POC Glucose Random Glucose 349 H Calcium 10.0 Phosphorus 2.8 Magnesium 1.7 Tacrolimus 10.1 CMV Qnt PCR IU/mL EBV (Quant-PCR) Quant 04/05/18 04/05/18 04/05/18 13:08 16:24 20:06 WBC RBC Hgb Hct MCV MCH MCHC RDW Plt Count MPV Neut % (Auto) Lymph % (Auto) Graves % (Auto) Eos % (Auto) Baso % (Auto) Neut # (Auto) Lymph # (Auto) Graves # (Auto) Eos # (Auto) Baso # (Auto) WBC Differential Differential Comment Smear Path Review Sodium Potassium Chloride Carbon Dioxide Anion Gap BUN Creatinine Estimated GFR POC Glucose 161 H 193 H Random Glucose Calcium Phosphorus Magnesium Tacrolimus CMV Qnt PCR IU/mL EBV (Quant-PCR) Quant 04/06/18 04/06/18 04/06/18 10:51 10:59 10:59 WBC 16.3 H RBC 3.02 L Hgb 9.2 L Hct 26.5 L MCV 87.8 MCH 30.5 MCHC 34.7 RDW 16.7 Plt Count 934 H MPV 8.5 Neut % (Auto) 83.9 H Lymph % (Auto) 2.9 L Graves % (Auto) 11.7 H Eos % (Auto) 1.2 Baso % (Auto) 0.3 Neut # (Auto) 13.7 H Lymph # (Auto) 0.5 L Graves # (Auto) 1.9 H Eos # (Auto) 0.2 Baso # (Auto) 0.0 WBC Differential . Differential Comment Auto diff final Smear Path Review Sodium 132 L Potassium 4.6 Chloride 95 L Carbon Dioxide 29.4 Anion Gap 8 BUN 35 H Creatinine 1.22 H Estimated GFR 45 L POC Glucose 270 H Random Glucose 265 H Calcium 9.9 Phosphorus Magnesium Tacrolimus CMV Qnt PCR IU/mL EBV (Quant-PCR) Quant Microbiology 04/04/18 14:11 Blood - Line Aerobic Blood Culture - Preliminary No growth in 2 days 04/04/18 14:11 Blood - Line Anaerobic Blood Culture - Preliminary No growth in 2 days 04/04/18 14:15 Blood - Peripheral Aerobic Blood Culture - Preliminary No growth in 2 days 04/04/18 14:15 Blood - Peripheral Anaerobic Blood Culture - Preliminary No growth in 2 days <Rose Angelo - Last Filed: 04/06/18 11:55> - Labs CBC & Chem 7: 04/06/18 10:59 04/06/18 10:59 Laboratory Results - last 24 hr 04/03/18 04/03/18 04/05/18 10:35 10:35 13:08 WBC RBC Hgb Hct MCV MCH MCHC RDW Plt Count MPV Neut % (Auto) Lymph % (Auto) Graves % (Auto) Eos % (Auto) Baso % (Auto) Neut # (Auto) Lymph # (Auto) Graves # (Auto) Eos # (Auto) Baso # (Auto) WBC Differential Differential Comment Smear Path Review Sodium Potassium Chloride Carbon Dioxide Anion Gap BUN Creatinine Estimated GFR POC Glucose Random Glucose Calcium Total Bilirubin Direct Bilirubin Indirect Bilirubin AST ALT Alkaline Phosphatase Total Protein Albumin Tacrolimus CMV Qnt PCR IU/mL Undetected EBV (Quant-PCR) Quant Undetected 04/05/18 04/05/18 04/06/18 16:24 20:06 10:51 WBC RBC Hgb Hct MCV MCH MCHC RDW Plt Count MPV Neut % (Auto) Lymph % (Auto) Graves % (Auto) Eos % (Auto) Baso % (Auto) Neut # (Auto) Lymph # (Auto) Graves # (Auto) Eos # (Auto) Baso # (Auto) WBC Differential Differential Comment Smear Path Review Sodium Potassium Chloride Carbon Dioxide Anion Gap BUN Creatinine Estimated GFR POC Glucose 161 H 193 H 270 H Random Glucose Calcium Total Bilirubin Direct Bilirubin Indirect Bilirubin AST ALT Alkaline Phosphatase Total Protein Albumin Tacrolimus CMV Qnt PCR IU/mL EBV (Quant-PCR) Quant 04/06/18 04/06/18 04/06/18 10:59 10:59 10:59 WBC 16.3 H RBC 3.02 L Hgb 9.2 L Hct 26.5 L MCV 87.8 MCH 30.5 MCHC 34.7 RDW 16.7 Plt Count 934 H MPV 8.5 Neut % (Auto) 83.9 H Lymph % (Auto) 2.9 L Graves % (Auto) 11.7 H Eos % (Auto) 1.2 Baso % (Auto) 0.3 Neut # (Auto) 13.7 H Lymph # (Auto) 0.5 L Graves # (Auto) 1.9 H Eos # (Auto) 0.2 Baso # (Auto) 0.0 WBC Differential . Differential Comment Auto diff final Smear Path Review Sodium 132 L Potassium 4.6 Chloride 95 L Carbon Dioxide 29.4 Anion Gap 8 BUN 35 H Creatinine 1.22 H Estimated GFR 45 L POC Glucose Random Glucose 265 H Calcium 9.9 Total Bilirubin Direct Bilirubin Indirect Bilirubin AST ALT Alkaline Phosphatase Total Protein Albumin Tacrolimus 11.7 CMV Qnt PCR IU/mL EBV (Quant-PCR) Quant 04/06/18 04/06/18 10:59 14:58 WBC RBC Hgb Hct MCV MCH MCHC RDW Plt Count MPV Neut % (Auto) Lymph % (Auto) Graves % (Auto) Eos % (Auto) Baso % (Auto) Neut # (Auto) Lymph # (Auto) Graves # (Auto) Eos # (Auto) Baso # (Auto) WBC Differential Differential Comment Smear Path Review Sodium Potassium Chloride Carbon Dioxide Anion Gap BUN Creatinine Estimated GFR POC Glucose 274 H Random Glucose Calcium Total Bilirubin 0.1 L Direct Bilirubin 0.1 Indirect Bilirubin 0.0 AST 12 L ALT 13 Alkaline Phosphatase 232 H Total Protein 6.5 Albumin 2.4 L Tacrolimus CMV Qnt PCR IU/mL EBV (Quant-PCR) Quant Microbiology 04/04/18 14:11 Blood - Line Aerobic Blood Culture - Preliminary No growth in 2 days 04/04/18 14:11 Blood - Line Anaerobic Blood Culture - Preliminary No growth in 2 days 04/04/18 14:15 Blood - Peripheral Aerobic Blood Culture - Preliminary No growth in 2 days 04/04/18 14:15 Blood - Peripheral Anaerobic Blood Culture - Preliminary No growth in 2 days <Miller Pollard - Last Filed: 04/06/18 15:13> Assessment and Plan - Plan Assessment Abdominal pain with leukocytosispatient has quite extensive GI history. She has had complete colectomy with small bowel resection, states she only has about 33 cm of small intestine remaining. 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 Patient was able to be on only p.o. up until about 7 months ago and she has since remained on TPN. Patient does have chronic diarrhea. Patient also reports known history of gastroparesis, has previously tried erythromycin with no improvement in her symptoms. Was on Reglan prior to admission. CT abdomen/pelvis without IV contrast (03/27/18)--> Status post cholecystectomy with prominent intrahepatic pneumobilia. Numerous subcentimeter hypodensities lesions in both lobes of the liver, most prominently in the right lobe. Although nonspecific, cannot exclude hepatic abscesses in the appropriate clinical setting. Comparisons with prior CT examinations would be beneficial to determine chronicity. 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 Mild hydronephrosis of the transplant kidney without perirenal fluid collections or radiopaque calculi. Status post near total colectomy with multiple suture lines in the left upper quadrant. Several loops of small bowel in the left upper quadrant are marginally dilated without definitive evidence for bowel obstruction. Exam was repeated yesterday with no changes in findings. EGD (04/05) There was LA Class A esophagitis noted. Approx 450cc of fluid retained in the stomach. Suctioned. Gastro-jujenostomy identified. Small bowel mucosa normal. Food residue in the gastric body. Normal duodenal mucosa Sigmoidoscopy --> There was evidence of prior surgical anastomosis; biopsy was performed using cold forceps. Internal and external hemorrhoids. Plan EGD/sigmoidoscopy biopsy pending Reglan Trial of Levsin TPN P.o. as tolerated Continue with supportive care Symptoms are chronic Patient has been seen and examined by myself and Dr. Pollard and this note is written on his behalf <Rose Angelo - Last Filed: 04/06/18 11:55> - Plan Seen and examined with VIDEO INTERN, complaining of worsening headache, diarrhea/ abdominal pain about the same. Wants to stop TPN. Dc TPN after present bag runs out. The exam, history, and the medical decision-making described in the above note were completed with the assistance of the mid-level provider. I reviewed and agree with the findings presented. I attest that I had a [id number] encounter with the patient on the same day, and personally performed and documented my assessment and findings in the medical record.Thinks TPN giving her problems. Full liquid diet, low dose reglan. Octreotide not an option due to interaction with Argylin. Exanetide possible option, will check and see if hospital carries this. Biopsies-p. <Miller Pollard - Last Filed: 04/06/18 15:13>
[2018-04-06 14:24] LABS: Albumin 2.4 g/dL (3.4-5.0)
[2018-04-06 14:27] LABS: Total Protein 6.5 g/dL (6.4-8.2)
--- NOTE | 2018-04-06 15:49 | P.PNPAL ---
Reason for Visit Reason for visit: a. To assist with evaluation and management of symptoms including:pain b. To assist medical decision maker(s) with: better understanding of current medical conditions; weighing benefits/burdens of medical treatment options; making medical treatment decisions. Subjective Subjective/Interval History: This 57-year-old patient presented to the ED on 03/27/18 for progressive fever over the prior several days she has known history of allogenic renal transplant in June 2017. She reports kidney function had been fairly good but not sure she had a UTI reporting she has pain in left. Cough or congestion. Port in place reported to be functioning well. She reported receiving Prograf up until a couple weeks prior and then was switched at the beginning of the month. Renal transplant function reported at 48% at last check was stable biopsy 1 month after transplant. she reports the remaining kidneys were removed. Last f/ up w surgeon 03/24/18. She has chronic abdominal pain, as well as chronic nausea and vomiting. 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 Additionally she has history of GERD, dumping syndrome, gastroparesis, on chronic TPN. 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 WBC 16.3. Temp max 99. Hgb9.2/hct 26.5. Plt 934. has used 4 doses of 2mg dilaudid, no change in pain level per nursing. Also ordered for valium x1 per medical attending, no change to headache after. has used several doses sudafed, no change in headache per nursing. D/w GI , medical attending. GI d/w pt weaning TPN off, she can take PO as she will tolerate. Pt seen in room . She is alert, oriented, appropriate . She endorses no nausea. + loose stool. no shortness of breath. she reports intermittent chills/sweats. she feels maybe the TPN is contributing to her feeling badly. She wonders if it her IV line- report that all cultures have been negative to date. She would like to try to d/c the TPN and see if that helps WBC etc. She endorses being in the hospital intermittently since June and just wanting to be well enough to be home. She is open to meeting again with sommelier to review PO options to maximize PO nutrition as she realizes her PO intake has been below her Kcal requirements. She reports onset of "sinus like" headaches around December, reports has not had recent CT brain or workup. She reports they trialed some time of migraine medication for a headache that lasted 1 week in [place], it did not respond to the med tried, and eventually the headache went away. Headache present last several days. Did not change with sudafed which she feels in the past helped. She endorses abdominal/left side pain "slightly " better since dilaudid added though pain still 7-8/10. She denies visual changes. No focal deficits noted. Pt sad, endorses she just wants to be home an be well. She understands her underlying GI issues will not resolve completely however she wants to feel normal enough to go home. She reports that in [place] surgery discussed "total transplants" to address ongoing bowel issues but that it was high risk/high mortality and she was trying to avoid this. offer to call /update any family, she has been in touch with them, declines. d/w all w nurse, medical attending. med attending Ok w increase hydromorphone for better pain control. May consider CT brain r/o other contributing causes to HAMLIN. . Objective Vital Signs: Vital Signs 04/05/18 16:00 04/05/18 17:00 04/05/18 18:00 Temperature Pulse Rate 71 68 69 Respiratory Rate Blood Pressure Pulse Oximetry 04/05/18 19:00 04/05/18 20:00 04/05/18 21:00 Temperature 98.7 F Pulse Rate 72 74 73 Respiratory Rate 16 Blood Pressure 160/77 H Pulse Oximetry 96 04/05/18 22:00 04/05/18 23:00 04/06/18 00:00 Temperature 99 F Pulse Rate 75 79 81 Respiratory Rate 16 Blood Pressure 134/69 Pulse Oximetry 96 04/06/18 01:00 04/06/18 02:00 04/06/18 03:00 Temperature 99 F Pulse Rate 77 81 80 Respiratory Rate 16 Blood Pressure 146/74 H Pulse Oximetry 96 04/06/18 04:00 04/06/18 05:00 04/06/18 05:52 Temperature Pulse Rate 82 82 88 Respiratory Rate Blood Pressure Pulse Oximetry 04/06/18 07:00 04/06/18 08:00 04/06/18 09:00 Temperature 99 F Pulse Rate 85 84 81 Respiratory Rate 16 Blood Pressure 177/82 H Pulse Oximetry 96 04/06/18 10:00 04/06/18 11:00 04/06/18 12:00 Temperature 98.6 F Pulse Rate 82 83 84 Respiratory Rate 16 Blood Pressure 142/85 H Pulse Oximetry 97 04/06/18 13:00 04/06/18 14:00 Temperature Pulse Rate 80 81 Respiratory Rate Blood Pressure Pulse Oximetry Intake & Output 04/05/18 04/06/18 04/06/18 18:59 06:59 18:59 Intake Total 480 / 480 2549.6937 / 2549.6937 Output Total 1300 / 1300 600 / 600 Balance -820 / -820 1949.6937 / 1949.6937 Weight 61.5 kg Intake: IV 2309.6937 / 2309.6937 Intralipid 20% Inj 250 ML @ 31. 250 / 250 25 mls/hr IV.SIG Q24H RONALD Rx#: [id number] Sodium Chloride 23.4% Inj 11 9.6937 / 2059.6937 MEQ Sodium Acetate Inj 59 MEQ KCl Inj 40 MEQ Magnesium Chloride Inj 10 MEQ Calcium Chloride Inj 9 MEQ MVI-12 Inj 10 ML Folvite Inj 1 MG NovoLIN R Inj 30 UNITS In TPN Fluid 2 Liter 2,000 ML @ 65.009 mls/hr IV.SIG Q24H RONALD Rx#:[id number] Oral 480 / 480 240 / 240 Output: Urine 1300 / 1300 600 / 600 Other: Date of Last Bowel Movement 04/05/18 # Bowel Movements 1 Physical Exam: CONSTITUTIONAL/GENERAL: This is an adequately nourished patient, flat affect, grimaces TUBES/LINES/DRAINS: Port accessed, telemetry present SKIN: No jaundice, rashes, or lesions. Well-healed abdominal scars. Skin warm/ dry. EYES: Pupils equal and round and reactive. Extraocular motions intact. No scleral icterus. No injection or drainage. Fundi not examined. ENT: Hearing grossly normal. Nose without bleeding or purulent drainage. Throat without visible erythema, exudates, masses, or lesions. CARDIOVASCULAR: Regular rate and rhythm without murmur. No JVD. Peripheral pulses symmetric. No edema. RESPIRATORY/CHEST: Symmetric, unlabored respirations. Clear to auscultation. On room air. Breath sounds equal bilaterally. GASTROINTESTINAL: Abdomen soft, tender with palpation,distended. No palpable masses-Limited palpation secondary to tenderness. No guarding. Bowel sounds intermittent. GENITOURINARY: Without palpable bladder distension. MUSCULOSKELETAL: Extremities without clubbing, cyanosis, or edema. No joint tenderness or effusion noted. NEUROLOGICAL: Awake and alert, oriented x3. Speech clear. Appropriate. Insight reasonable. Moves all 4 extremities- strength equal bilaterally. no facial droop. no focal deficits. Motor and sensory grossly within normal limits. PSYCHIATRIC: No obvious anxiety/depression. Somewhat flat indicates is in pain with headache Diagnostic Tests Laboratory: Laboratory Results - last 72 hr 04/03/18 04/03/18 04/03/18 10:35 10:35 16:41 WBC RBC Hgb Hct MCV MCH MCHC RDW Plt Count MPV Neut % (Auto) Lymph % (Auto) [place] % (Auto) Eos % (Auto) Baso % (Auto) Neut # (Auto) Lymph # (Auto) [place] # (Auto) Eos # (Auto) Baso # (Auto) WBC Differential Differential Comment Smear Path Review Sodium Potassium Chloride Carbon Dioxide Anion Gap BUN Creatinine Estimated GFR POC Glucose 249 H Random Glucose Calcium Phosphorus Magnesium Total Bilirubin Direct Bilirubin Indirect Bilirubin AST ALT Alkaline Phosphatase Total Protein Albumin Urine Color Urine Clarity Urine pH Ur Specific [place] Urine Protein Urine Glucose (UA) Urine Ketones Urine Occult Blood Urine Nitrate Urine Bilirubin Urine Urobilinogen Ur Leukocyte Esterase Urine WBC Ur Squamous Epith Cells Urine Mucus Micro UA Comment Ur Microscopic Review Urine Culture Comments Nasal Screen MRSA (PCR) Tacrolimus CMV Qnt PCR IU/mL Undetected EBV (Quant-PCR) Quant Undetected 04/03/18 04/03/18 04/04/18 21:30 21:35 07:59 WBC RBC Hgb Hct MCV MCH MCHC RDW Plt Count MPV Neut % (Auto) Lymph % (Auto) [place] % (Auto) Eos % (Auto) Baso % (Auto) Neut # (Auto) Lymph # (Auto) [place] # (Auto) Eos # (Auto) Baso # (Auto) WBC Differential Differential Comment Smear Path Review Sodium Potassium Chloride Carbon Dioxide Anion Gap BUN Creatinine Estimated GFR POC Glucose 318 H 264 H Random Glucose Calcium Phosphorus Magnesium Total Bilirubin Direct Bilirubin Indirect Bilirubin AST ALT Alkaline Phosphatase Total Protein Albumin Urine Color Urine Clarity Urine pH Ur Specific [place] Urine Protein Urine Glucose (UA) Urine Ketones Urine Occult Blood Urine Nitrate Urine Bilirubin Urine Urobilinogen Ur Leukocyte Esterase Urine WBC Ur Squamous Epith Cells Urine Mucus Micro UA Comment Ur Microscopic Review Urine Culture Comments Nasal Screen MRSA (PCR) Mrsa detected Tacrolimus CMV Qnt PCR IU/mL EBV (Quant-PCR) Quant 04/04/18 04/04/18 04/04/18 11:03 11:03 11:03 WBC 13.1 H RBC 3.18 L Hgb 8.9 L Hct 28.5 L MCV 89.8 D MCH 28.1 MCHC 31.3 L RDW 17.0 Plt Count 872 H MPV 8.9 Neut % (Auto) 78.9 H Lymph % (Auto) 8.0 L [place] % (Auto) 10.8 H Eos % (Auto) 1.5 Baso % (Auto) 0.8 Neut # (Auto) 10.3 H Lymph # (Auto) 1.0 [place] # (Auto) 1.4 H Eos # (Auto) 0.2 Baso # (Auto) 0.1 WBC Differential . Differential Comment Auto diff final Smear Path Review Sodium 133 L Potassium 4.8 Chloride 93 L Carbon Dioxide 31.3 Anion Gap 9 BUN 34 H Creatinine 1.33 H Estimated GFR 41 L POC Glucose Random Glucose 364 H Calcium 9.4 D Phosphorus 2.2 L Magnesium 1.6 Total Bilirubin Direct Bilirubin Indirect Bilirubin AST ALT Alkaline Phosphatase Total Protein Albumin Urine Color Urine Clarity Urine pH Ur Specific [place] Urine Protein Urine Glucose (UA) Urine Ketones Urine Occult Blood Urine Nitrate Urine Bilirubin Urine Urobilinogen Ur Leukocyte Esterase Urine WBC Ur Squamous Epith Cells Urine Mucus Micro UA Comment Ur Microscopic Review Urine Culture Comments Nasal Screen MRSA (PCR) Tacrolimus 11.2 CMV Qnt PCR IU/mL EBV (Quant-PCR) Quant 04/04/18 04/04/18 04/04/18 11:26 16:05 16:12 WBC RBC Hgb Hct MCV MCH MCHC RDW Plt Count MPV Neut % (Auto) Lymph % (Auto) [place] % (Auto) Eos % (Auto) Baso % (Auto) Neut # (Auto) Lymph # (Auto) [place] # (Auto) Eos # (Auto) Baso # (Auto) WBC Differential Differential Comment Smear Path Review Sodium Potassium Chloride Carbon Dioxide Anion Gap BUN Creatinine Estimated GFR POC Glucose 182 H 220 H Random Glucose Calcium Phosphorus Magnesium Total Bilirubin Direct Bilirubin Indirect Bilirubin AST ALT Alkaline Phosphatase Total Protein Albumin Urine Color Straw Urine Clarity Clear Urine pH 7.0 Ur Specific [place] 1.004 Urine Protein Negative Urine Glucose (UA) 50 Urine Ketones Negative Urine Occult Blood Small H Urine Nitrate Negative Urine Bilirubin Negative Urine Urobilinogen Less than 2 Ur Leukocyte Esterase Negative Urine WBC 1 Ur Squamous Epith Cells <1 Urine Mucus Few H Micro UA Comment Culture not ind Ur Microscopic Review Not Reportable Urine Culture Comments Culture not ind Nasal Screen MRSA (PCR) Tacrolimus CMV Qnt PCR IU/mL EBV (Quant-PCR) Quant 04/04/18 04/05/18 04/05/18 20:29 10:55 12:49 WBC RBC Hgb Hct MCV MCH MCHC RDW Plt Count MPV Neut % (Auto) Lymph % (Auto) [place] % (Auto) Eos % (Auto) Baso % (Auto) Neut # (Auto) Lymph # (Auto) [place] # (Auto) Eos # (Auto) Baso # (Auto) WBC Differential Differential Comment Smear Path Review Sodium Potassium Chloride Carbon Dioxide Anion Gap BUN Creatinine Estimated GFR POC Glucose 228 H 302 H 206 H Random Glucose Calcium Phosphorus Magnesium Total Bilirubin Direct Bilirubin Indirect Bilirubin AST ALT Alkaline Phosphatase Total Protein Albumin Urine Color Urine Clarity Urine pH Ur Specific [place] Urine Protein Urine Glucose (UA) Urine Ketones Urine Occult Blood Urine Nitrate Urine Bilirubin Urine Urobilinogen Ur Leukocyte Esterase Urine WBC Ur Squamous Epith Cells Urine Mucus Micro UA Comment Ur Microscopic Review Urine Culture Comments Nasal Screen MRSA (PCR) Tacrolimus CMV Qnt PCR IU/mL EBV (Quant-PCR) Quant 04/05/18 04/05/18 04/05/18 13:08 13:08 13:08 WBC 14.1 H RBC 3.28 L Hgb 9.2 L Hct 29.6 L MCV 90.3 MCH 28.0 MCHC 31.0 L RDW 17.6 H Plt Count 974 H MPV 8.3 Neut % (Auto) 84.0 H Lymph % (Auto) 3.5 L [place] % (Auto) 10.8 H Eos % (Auto) 1.2 Baso % (Auto) 0.5 Neut # (Auto) 11.9 H Lymph # (Auto) 0.5 L [place] # (Auto) 1.5 H Eos # (Auto) 0.2 Baso # (Auto) 0.1 WBC Differential . Differential Comment Auto diff final Smear Path Review Sodium 132 L Potassium 4.7 Chloride 94 L Carbon Dioxide 29.1 Anion Gap 9 BUN 36 H Creatinine 1.37 H Estimated GFR 40 L POC Glucose Random Glucose 349 H Calcium 10.0 Phosphorus 2.8 Magnesium 1.7 Total Bilirubin Direct Bilirubin Indirect Bilirubin AST ALT Alkaline Phosphatase Total Protein Albumin Urine Color Urine Clarity Urine pH Ur Specific [place] Urine Protein Urine Glucose (UA) Urine Ketones Urine Occult Blood Urine Nitrate Urine Bilirubin Urine Urobilinogen Ur Leukocyte Esterase Urine WBC Ur Squamous Epith Cells Urine Mucus Micro UA Comment Ur Microscopic Review Urine Culture Comments Nasal Screen MRSA (PCR) Tacrolimus 10.1 CMV Qnt PCR IU/mL EBV (Quant-PCR) Quant 04/05/18 04/05/18 04/05/18 13:08 16:24 20:06 WBC RBC Hgb Hct MCV MCH MCHC RDW Plt Count MPV Neut % (Auto) Lymph % (Auto) [place] % (Auto) Eos % (Auto) Baso % (Auto) Neut # (Auto) Lymph # (Auto) [place] # (Auto) Eos # (Auto) Baso # (Auto) WBC Differential Differential Comment Smear Path Review Sodium Potassium Chloride Carbon Dioxide Anion Gap BUN Creatinine Estimated GFR POC Glucose 161 H 193 H Random Glucose Calcium Phosphorus Magnesium Total Bilirubin Direct Bilirubin Indirect Bilirubin AST ALT Alkaline Phosphatase Total Protein Albumin Urine Color Urine Clarity Urine pH Ur Specific [place] Urine Protein Urine Glucose (UA) Urine Ketones Urine Occult Blood Urine Nitrate Urine Bilirubin Urine Urobilinogen Ur Leukocyte Esterase Urine WBC Ur Squamous Epith Cells Urine Mucus Micro UA Comment Ur Microscopic Review Urine Culture Comments Nasal Screen MRSA (PCR) Tacrolimus CMV Qnt PCR IU/mL EBV (Quant-PCR) Quant 04/06/18 04/06/18 04/06/18 10:51 10:59 10:59 WBC 16.3 H RBC 3.02 L Hgb 9.2 L Hct 26.5 L MCV 87.8 MCH 30.5 MCHC 34.7 RDW 16.7 Plt Count 934 H MPV 8.5 Neut % (Auto) 83.9 H Lymph % (Auto) 2.9 L [place] % (Auto) 11.7 H Eos % (Auto) 1.2 Baso % (Auto) 0.3 Neut # (Auto) 13.7 H Lymph # (Auto) 0.5 L [place] # (Auto) 1.9 H Eos # (Auto) 0.2 Baso # (Auto) 0.0 WBC Differential . Differential Comment Auto diff final Smear Path Review Sodium 132 L Potassium 4.6 Chloride 95 L Carbon Dioxide 29.4 Anion Gap 8 BUN 35 H Creatinine 1.22 H Estimated GFR 45 L POC Glucose 270 H Random Glucose 265 H Calcium 9.9 Phosphorus Magnesium Total Bilirubin Direct Bilirubin Indirect Bilirubin AST ALT Alkaline Phosphatase Total Protein Albumin Urine Color Urine Clarity Urine pH Ur Specific [place] Urine Protein Urine Glucose (UA) Urine Ketones Urine Occult Blood Urine Nitrate Urine Bilirubin Urine Urobilinogen Ur Leukocyte Esterase Urine WBC Ur Squamous Epith Cells Urine Mucus Micro UA Comment Ur Microscopic Review Urine Culture Comments Nasal Screen MRSA (PCR) Tacrolimus CMV Qnt PCR IU/mL EBV (Quant-PCR) Quant 04/06/18 04/06/18 04/06/18 10:59 10:59 14:58 WBC RBC Hgb Hct MCV MCH MCHC RDW Plt Count MPV Neut % (Auto) Lymph % (Auto) [place] % (Auto) Eos % (Auto) Baso % (Auto) Neut # (Auto) Lymph # (Auto) [place] # (Auto) Eos # (Auto) Baso # (Auto) WBC Differential Differential Comment Smear Path Review Sodium Potassium Chloride Carbon Dioxide Anion Gap BUN Creatinine Estimated GFR POC Glucose 274 H Random Glucose Calcium Phosphorus Magnesium Total Bilirubin 0.1 L Direct Bilirubin 0.1 Indirect Bilirubin 0.0 AST 12 L ALT 13 Alkaline Phosphatase 232 H Total Protein 6.5 Albumin 2.4 L Urine Color Urine Clarity Urine pH Ur Specific [place] Urine Protein Urine Glucose (UA) Urine Ketones Urine Occult Blood Urine Nitrate Urine Bilirubin Urine Urobilinogen Ur Leukocyte Esterase Urine WBC Ur Squamous Epith Cells Urine Mucus Micro UA Comment Ur Microscopic Review Urine Culture Comments Nasal Screen MRSA (PCR) Tacrolimus 11.7 CMV Qnt PCR IU/mL EBV (Quant-PCR) Quant Result Diagrams: 04/06/18 10:59 04/06/18 10:59 Microbiology: Microbiology 04/04/18 14:11 Aerobic Blood Culture - Preliminary Blood - Line No growth in 2 days Anaerobic Blood Culture - Preliminary No growth in 2 days 04/04/18 14:15 Aerobic Blood Culture - Preliminary Blood - Peripheral No growth in 2 days Anaerobic Blood Culture - Preliminary No growth in 2 days Imaging: Impressions Abdomen/Pelvis CT 04/04/18 00:00 CONCLUSION: 1. The only new findings when compared to prior CT on 03/27/2018 include distention of the stomach and mild bibasilar atelectasis. Chest CT 04/04/18 00:00 CONCLUSION: 1. Increase in subsegmental basilar atelectasis since March 27. No new effusion. Upper lungs clear. No new adenopathy. Assessment and Plan - Disease Oriented Problem List (1) Fever (2) Renal transplant recipient (3) On total parenteral nutrition (TPN) (4) SIRS (systemic inflammatory response syndrome) (5) Renal insufficiency (6) DM (diabetes mellitus) (7) Abdominal pain (8) Acute renal failure (9) Thrombocytopenia (10) Gastroparesis Pertinent Non-Medical Issues: Psychosocial: Originally from [place]. 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 though remains in close communication with her ex- who is supportive. Indicates that her son in [place] is designated as healthcare surrogate. Spiritual: Did not review today Legal:No legal issues. Patient currently alert, oriented and able to make her own decisions. She indicates that her son is designated as her healthcare surrogate. Ethical issues impacting care: No ethical/legal issues identified Important Contacts: Steven Kofimame (Ex Spouse) [phone] Prognosis: This patient was admitted for fever. Etiology still not entirely clear. She has complicated medical history having undergone many abdominal surgeries, and is status post kidney transplant June 2017. She has had ongoing issues with GI motility, short gut, TPN dependent at this point. No infectious agents localized yet during this admission course. Continues to have ongoing bowel issues. Given complicated medical history she does remain high risk for ongoing complications and potential clinical setbacks however at this time she is currently stable and she should be able to discharge home to her prior status. Code Status: Full Code Plan: Legal decision maker: Patient alert, oriented and appropriate. Able to make her own decisions. She indicates her son in [place] is designated as her primary healthcare surrogate, however her ex- who is local she wishes to be first contacted as he is local. Goals: goals aggressive. Pt wants better pain control, headache relief. Hopeful to return home once acute issues resolve CODE STATUS: full code SYMPTOMS: --pain- ongoing, acute on chronic. General day to day pain #4/10 to abdomen, tolerable. During acute hospitalization up to -03/07. Does not use chronic opiates daily. In the past has been on morphine, dilaudid, fentanyl. All make her itch. Fentanyl she reports causes angioedema, tongue swelling. Tolerates itching by using Vistaril with. She already has PRN vistaril ordered. /// average PRN use past several days= 7-9 doses 4mg IV morphine in 24 hr. 32mg IV morphine = 96mg oral morphine equivalents. initially felt fentanyl may be of benefit brandon with concern for gastric absorption, however pt reports TONGUE edema w use in the past. She does not want to be on terminal carman opiates. She reports morphine PO ineffective. She reports hx dilaudid PO effective. = 32mg IV morphine = to 24mg dilaudid oral equivalents. This would be equivalent to 6mg dilaudid every 4 hr PO. 04/05 Consider adding Dilaudid 2 mg PO every 4 hrs prn pain > 5 to treat very conservatively, to treat based on most recent requirements could consider 4mg PO every 4 hrs PRN pain > 5. Monitor, as not clear how much she will actually be absorbing given GI issues. d/w medical attending, requests enter order for conservative 2mg dose. Will d/c other PO morphine 04/06/18 d/w attending increase PO dilaudid to 4mg, 2mg used with little relief of abdominal pain or headache. Also c/o sinus headache 04/06 intermittent past few mos. relieved w PRN sudafed , reports no hx of migraine diagnosis. She requests PRN sudafed- note cautious use with renal impairment. has used a few doses, reports no change to HAMLIN. Reports no recent HAMLIN workup. Trialled on migraine med in [place] which was ineffective. She is not aware of recent brain imaging, may consider CT. /// 04/05 Consider adding Pseudoephedrine 30-60mg PO Q 6-8 HR PRN congestion/ headache, short term. *ordered. --n/v -intermittent, chronic. Multiple complex ongoing GI issues, concern RE ileus, decreased motility. Has PRN zofran. Palliative care will continue to follow during hospital course as condition evolves, to assist patient/decision-maker with understanding of medical conditions, weighing benefits/burdens of treatment options, for clarification of goals of treatment. Additionally will assist with any symptoms of palliative concern Attestation Attestation: To help prompt me to consider important information that might be impacting today's encounter and assessment, information from prior notes written by myself or my colleagues may have been "brought forward" into today's note. My signature on this note, however, is an attestation that I personally performed the exam, history, and/or decision-making noted today, and, unless otherwise indicated, the interactions with patient, family, and staff as well as the review of records all occurred today. I also attest that the listed assessment and stated plan reflect my best clinical judgment today based on the combination of historical information, prior notes, and today's exam/ interactions. When time spent is documented, it refers only to time spent today by the signer, or if indicated, combined time spent today by collaborating physician/nurse practitioner.
--- NOTE | 2018-04-06 18:31 | P.PNNP ---
Subjective Interval history: Patient with abdominal pain Physical Exam Vital signs: Vital Signs 04/05/18 19:00 04/05/18 20:00 04/05/18 21:00 Temperature 98.7 F Pulse Rate 72 74 73 Respiratory Rate 16 Blood Pressure 160/77 H Pulse Oximetry 96 04/05/18 22:00 04/05/18 23:00 04/06/18 00:00 Temperature 99 F Pulse Rate 75 79 81 Respiratory Rate 16 Blood Pressure 134/69 Pulse Oximetry 96 04/06/18 01:00 04/06/18 02:00 04/06/18 03:00 Temperature 99 F Pulse Rate 77 81 80 Respiratory Rate 16 Blood Pressure 146/74 H Pulse Oximetry 96 04/06/18 04:00 04/06/18 05:00 04/06/18 05:52 Temperature Pulse Rate 82 82 88 Respiratory Rate Blood Pressure Pulse Oximetry 04/06/18 07:00 04/06/18 08:00 04/06/18 09:00 Temperature 99 F Pulse Rate 85 84 81 Respiratory Rate 16 Blood Pressure 177/82 H Pulse Oximetry 96 04/06/18 10:00 04/06/18 11:00 04/06/18 12:00 Temperature 98.6 F Pulse Rate 82 83 84 Respiratory Rate 16 Blood Pressure 142/85 H Pulse Oximetry 97 04/06/18 13:00 04/06/18 14:00 04/06/18 15:00 Temperature 98.6 F Pulse Rate 80 81 82 Respiratory Rate 16 Blood Pressure 132/74 Pulse Oximetry 97 04/06/18 16:00 04/06/18 17:21 04/06/18 18:00 Temperature Pulse Rate 80 82 85 Respiratory Rate Blood Pressure Pulse Oximetry Intake & Output 04/05/18 04/06/18 04/06/18 18:59 06:59 18:59 Intake Total 480 / 480 254.6936 / 2548.37 Output Total 1300 / 1300 600 / 600 Balance -820 / -820 / Weight 61.5 kg Intake: IV / Intralipid 20% Inj 250 ML @ 31. 250 / 250 25 mls/hr IV.SIG Q24H [facility] Rx#: [id number] Sodium Chloride 23.4% Inj 11 / 2059.6937 MEQ Sodium Acetate Inj 59 MEQ KCl Inj 40 MEQ Magnesium Chloride Inj 10 MEQ Calcium Chloride Inj 9 MEQ MVI-12 Inj 10 ML Folvite Inj 1 MG NovoLIN R Inj 30 UNITS In TPN Fluid 2 Liter 2,000 ML @ 65.009 mls/hr IV.SIG Q24H [facility] Rx#:[id number] Oral 480 / 480 240 / 240 Output: Urine 1300 / 1300 600 / 600 Other: Date of Last Bowel Movement 04/05/18 # Bowel Movements 1 Narrative: GENERAL: Well-developed patient, in no apparent distress. CARDIOVASCULAR: Regular rate and rhythm without murmurs, gallops, or rubs. RESPIRATORY: Clear to auscultation. Breath sounds equal bilaterally. No wheezes , rales, or rhonchi. GASTROINTESTINAL: Abdomen soft, tender on palpation specially on left flank. MUSCULOSKELETAL: Extremities without clubbing, cyanosis, or edema. NEURO: Alert & Oriented x4 to person, place, time, situation. Moves all ext x4 Assessment and Plan - Assessment (1) Acute renal failure Code(s): N17.9 - Acute kidney failure, unspecified Status: Acute (2) Fever Code(s): R50.9 - Fever, unspecified Status: Acute Qualifiers: Fever type: unspecified Qualified Code(s): R50.9 - Fever, unspecified (3) Renal transplant recipient Code(s): Z94.0 - Kidney transplant status Status: Acute (4) On total parenteral nutrition (TPN) Code(s): Z78.9 - Other specified health status Status: Acute (5) DM (diabetes mellitus) Code(s): E11.9 - Type 2 diabetes mellitus without complications Status: Acute (6) Abdominal pain Code(s): R10.9 - Unspecified abdominal pain Status: Acute - Plan Patient has acute renal failure with baseline creatinine around 0.9 currently at 1.2, Phosphorus and magnesium were replaced Doing better creatinine fluctuates 1.2 Thrush nystatin added Thrombocytosis platelets are climbing up hematology following Leukocytosis Tacrolimus dose being adjusted by Dr. Patel sigmoidoscopy done biopsy site of anastomosis Blood glucose fluctuate Monitor tacrolimus level Follow BMP Avoid nephrotoxins
--- NOTE | 2018-04-06 18:45 | P.PNTS ---
Subjective Interval history: Syas she doesn't feel well today. Ongoing headache. Loose stools have not increased with the reglan. Abd pain about same as yesterday evening (better than admit). Was a little teary eyed for some time. C/o not having any "quality of life". Has been in the hospital for the majority of the last 10 months. We discussed her potential "decision pathways", which include continuing TPN ( after central line removed, interval wait, then replaced); Stopping TPN and seeing how she does calorically with just po intake; and considering multivisceral transplant. She does not like the statistics about how patients do with multivisceral transplants. Reportedly they had discussed: stomach, pancreas, small intestine and colon transplant. She will tod and reconsider what path she would like to take ultimately. Physical Exam Vital signs: Vital Signs 04/05/18 19:00 04/05/18 20:00 04/05/18 21:00 Temperature 98.7 F Pulse Rate 72 74 73 Respiratory Rate 16 Blood Pressure 160/77 H Pulse Oximetry 96 04/05/18 22:00 04/05/18 23:00 04/06/18 00:00 Temperature 99 F Pulse Rate 75 79 81 Respiratory Rate 16 Blood Pressure 134/69 Pulse Oximetry 96 04/06/18 01:00 04/06/18 02:00 04/06/18 03:00 Temperature 99 F Pulse Rate 77 81 80 Respiratory Rate 16 Blood Pressure 146/74 H Pulse Oximetry 96 04/06/18 04:00 04/06/18 05:00 04/06/18 05:52 Temperature Pulse Rate 82 82 88 Respiratory Rate Blood Pressure Pulse Oximetry 04/06/18 07:00 04/06/18 08:00 04/06/18 09:00 Temperature 99 F Pulse Rate 85 84 81 Respiratory Rate 16 Blood Pressure 177/82 H Pulse Oximetry 96 04/06/18 10:00 04/06/18 11:00 04/06/18 12:00 Temperature 98.6 F Pulse Rate 82 83 84 Respiratory Rate 16 Blood Pressure 142/85 H Pulse Oximetry 97 04/06/18 13:00 04/06/18 14:00 04/06/18 15:00 Temperature 98.6 F Pulse Rate 80 81 82 Respiratory Rate 16 Blood Pressure 132/74 Pulse Oximetry 97 04/06/18 16:00 04/06/18 17:21 04/06/18 18:00 Temperature Pulse Rate 80 82 85 Respiratory Rate Blood Pressure Pulse Oximetry Intake & Output 04/05/18 04/06/18 04/06/18 18:59 06:59 18:59 Intake Total 480 / 480 2549.6937 / 2549.6937 Output Total 1300 / 1300 600 / 600 Balance -820 / -820 1949.6937 / 1949.6937 Weight 61.5 kg Intake: IV 2309.6937 / 2309.6937 Intralipid 20% Inj 250 ML @ 31. 250 / 250 25 mls/hr IV.SIG Q24H [facility] Rx#: [id number] Sodium Chloride 23.4% Inj 11 2058.6937 / 2058.6937 MEQ Sodium Acetate Inj 59 MEQ KCl Inj 40 MEQ Magnesium Chloride Inj 10 MEQ Calcium Chloride Inj 9 MEQ MVI-12 Inj 10 ML Folvite Inj 1 MG NovoLIN R Inj 30 UNITS In TPN Fluid 2 Liter 2,000 ML @ 65.009 mls/hr IV.SIG Q24H [facility] Rx#:[id number] Oral 480 / 480 240 / 240 Output: Urine 1300 / 1300 600 / 600 Other: Date of Last Bowel Movement 04/05/18 # Bowel Movements 1 - Constitutional no acute distress - Routine HEENT Exam Head: Present: normocephalic, atraumatic ENT: Present: mucous membranes moist - Routine Neck Exam Present: supple - Routine Respiratory Exam Present: CTA bilaterally - Routine Cardiovascular Exam Present: RRR, S1, S2 - Routine Abdominal Exam Present: soft, normoactive bowel sounds - Routine Extremities Exam Present: pulses intact - Routine Skin Exam Present: intact - Routine Neurological Exam Present: alert, oriented X3 - Detailed Neurological Exam: Coma Scale Verbal Response: Oriented - Routine Psychiatric Exam Present: normal affect, normal thought process Results - Labs CBC & Chem 7: 04/06/18 10:59 04/06/18 10:59 Laboratory Results - last 24 hr 04/03/18 04/03/18 04/05/18 10:35 10:35 20:06 WBC RBC Hgb Hct MCV MCH MCHC RDW Plt Count MPV Neut % (Auto) Lymph % (Auto) [place] % (Auto) Eos % (Auto) Baso % (Auto) Neut # (Auto) Lymph # (Auto) [place] # (Auto) Eos # (Auto) Baso # (Auto) WBC Differential Differential Comment Sodium Potassium Chloride Carbon Dioxide Anion Gap BUN Creatinine Estimated GFR POC Glucose 193 H Random Glucose Calcium Total Bilirubin Direct Bilirubin Indirect Bilirubin AST ALT Alkaline Phosphatase Total Protein Albumin Tacrolimus CMV Qnt PCR IU/mL Undetected EBV (Quant-PCR) Quant Undetected 04/06/18 04/06/18 04/06/18 10:51 10:59 10:59 WBC 16.3 H RBC 3.02 L Hgb 9.2 L Hct 26.5 L MCV 87.8 MCH 30.5 MCHC 34.7 RDW 16.7 Plt Count 934 H MPV 8.5 Neut % (Auto) 83.9 H Lymph % (Auto) 2.9 L [place] % (Auto) 11.7 H Eos % (Auto) 1.2 Baso % (Auto) 0.3 Neut # (Auto) 13.7 H Lymph # (Auto) 0.5 L [place] # (Auto) 1.9 H Eos # (Auto) 0.2 Baso # (Auto) 0.0 WBC Differential . Differential Comment Auto diff final Sodium 132 L Potassium 4.6 Chloride 95 L Carbon Dioxide 29.4 Anion Gap 8 BUN 35 H Creatinine 1.22 H Estimated GFR 45 L POC Glucose 270 H Random Glucose 265 H Calcium 9.9 Total Bilirubin Direct Bilirubin Indirect Bilirubin AST ALT Alkaline Phosphatase Total Protein Albumin Tacrolimus CMV Qnt PCR IU/mL EBV (Quant-PCR) Quant 04/06/18 04/06/18 04/06/18 10:59 10:59 14:58 WBC RBC Hgb Hct MCV MCH MCHC RDW Plt Count MPV Neut % (Auto) Lymph % (Auto) [place] % (Auto) Eos % (Auto) Baso % (Auto) Neut # (Auto) Lymph # (Auto) [place] # (Auto) Eos # (Auto) Baso # (Auto) WBC Differential Differential Comment Sodium Potassium Chloride Carbon Dioxide Anion Gap BUN Creatinine Estimated GFR POC Glucose 274 H Random Glucose Calcium Total Bilirubin 0.1 L Direct Bilirubin 0.1 Indirect Bilirubin 0.0 AST 12 L ALT 13 Alkaline Phosphatase 232 H Total Protein 6.5 Albumin 2.4 L Tacrolimus 11.7 CMV Qnt PCR IU/mL EBV (Quant-PCR) Quant Microbiology 04/04/18 14:11 Blood - Line Aerobic Blood Culture - Preliminary No growth in 2 days 04/04/18 14:11 Blood - Line Anaerobic Blood Culture - Preliminary No growth in 2 days 04/04/18 14:15 Blood - Peripheral Aerobic Blood Culture - Preliminary No growth in 2 days 04/04/18 14:15 Blood - Peripheral Anaerobic Blood Culture - Preliminary No growth in 2 days Assessment and Plan - Assessment (1) Fever Code(s): R50.9 - Fever, unspecified Status: Acute (2) Renal transplant recipient Code(s): Z94.0 - Kidney transplant status Status: Acute (3) DM (diabetes mellitus) Code(s): E11.9 - Type 2 diabetes mellitus without complications Status: Acute (4) Abdominal pain Code(s): R10.9 - Unspecified abdominal pain Status: Acute - Plan 57 yof with complex medical/surgical history s/p [place] in [place] in 06/2017. Admitted with left flank pain and FUO. No obvious source of infection yet identified. TPN to be stopped after current bag. Will have periperal IV placed and plan to have central line pulled in Am. Patient apprehensive about not having sedation in order to have it removed. Will see if we can arrange for conscious sedation at time of removal. Will plan to culture central line tip. Appreciate ID input. Kidney function improved slightly. Blood sugars better controlled. UOP okay. Abd pain and nausea better, but continues to complain of a headache-will try heating pad to neck/ upper back. Prograf level elevated. Will decrease dose. Thrush being treated. On Nystatin S&S. Platelets have trended up since admit - resumed anagrelide. Appreciate hematology-onc input. Appreciate GI input.Noted to have rising leukocytosis - Etiology unclear. Plan discussed with patient and the RN. Will continue to follow. (1) Fever Qualifiers: Fever type: unspecified Qualified Code(s): R50.9 - Fever, unspecified
[2018-04-06] MEDS: [UNRECOGNIZED DRUG - OTHER] IV.SIG SCH ×9 (21:00)
[2018-04-06 23:20] LABS: Magnesium 1.6 mg/dL (1.5-2.5); Phosphorus 2.6 mg/dL (2.5-4.9)
[2018-04-06] MEDS: Acetaminophen 325 MG Tablet PO PRN (23:47)
[2018-04-07] MEDS: Dextrose 5%/NaCl 0.9% Inj 1,000 ML IV.CONT SCH ×4 (05:30→21:42)
[2018-04-07] MEDS: Sod Chloride 0.9% Inj 1,000 ML IV.CONT SCH ×6 (05:30→21:43)
[2018-04-07] MEDS: Insulin NovoLIN Regular Correctional Sugar Inj SQ SCH ×4 (08:07→20:45)
--- NOTE | 2018-04-07 08:39 | P.PN ---
Subjective Interval history: This is a pleasant 57 y/o Female with DM II, dumping syndrome, she is on TPN, chronic diarrhea, GERD, Splenectomy gastroparesis, history of DVT on Lovenox subcu, and renal transplant. Patient was initially referred to the emergency room at [facility] by her transplant physician due to fever. found with Diarrhea, had Esophagitis [place] treated with Diflucan, Colonoscopy october 2017 benign polyps, Pancreatectomy 2010, revision of anastomosis from Liver to Intestines January 2018, Renal Transplant June 2017, Recent DVR August 2017 , developed rectal bleed 04/03 Improving Diarrhea with Lomotil, GI recommended clear liquid diet, PPI, Imodium , monitor laboratory, Creon, Imuran. continue to hold Lovenox. thrombocytosis. history of VTE on Lovenox 60 mg BID at this time on hold, Seen in her Bedroom at this time Doctor Atul in to see the patient and discuss in my presence with Doctor Gilberto Patel will perform Sigmoidoscopy tomorrow morning. 04/05: Seen by doctor Gilberto Patel today, no obvious source of infection yet identified, Working on Prograf Medication recommended to accept Anagrelide by Hematology and Oncology to reduce Leukocytosis, Hematology recommended to start again Lovenox 60 mg [address] they will place the orders, if she is unable to tolerate anticoagulation will perform ICF Status post Sigmoidoscopy evidence of a Hyperemic appearing and inflamed prior surgical anastomosis, Internal Hemorrhoids as per Nephrology Creatinine fluctuates in 1.3. EGD LA Class A esophagitis, Food residue in the gastric body, Normal duodenal Mucosa, recommended to continue PPIs. and Liquid diet, as per doctor Patel wants her Pain medicine to be handled better was asked for Palliative Care Consult we do not have Pain medicine specialist. removed Morphine IV after discuss with patient about this and she will continue by Mouth. 04/06: Seen by ID specialist today following CBC, Temperature, no infection found, Leukocytosis so far no new infection EBV, CMV negative, Hold Off antibiotics. Discussed at this time with Doctor Gilberto Patel. the patient developed Headache discussed with assurance specialist and Dilaudid was increased also given pseudoephedrine PRN, for short period of time, No clear Plan, but offered by Surgical team possible Stomach, Pancreas, Small intestine and Colon transplant. Plan to discontinue TPN, added Diazepam one dose and follow. 04/07: Seen in her bedroom, discussed with nurse, and with doctor Jorge awaiting for WBC count if decreasing won't need to remove the central line, stable in her bed, improving abdominal pain, continue ID specialist management, no nausea, vomit or diarrhea. Physical Exam Vital signs: Vital Signs 04/06/18 09:00 04/06/18 10:00 04/06/18 11:00 Temperature 98.6 F Pulse Rate 81 82 83 Respiratory Rate 16 Blood Pressure 142/85 H Pulse Oximetry 97 04/06/18 12:00 04/06/18 13:00 04/06/18 14:00 Temperature Pulse Rate 84 80 81 Respiratory Rate Blood Pressure Pulse Oximetry 04/06/18 15:00 04/06/18 16:00 04/06/18 17:21 Temperature 98.6 F Pulse Rate 82 80 82 Respiratory Rate 16 Blood Pressure 132/74 Pulse Oximetry 97 04/06/18 18:00 04/06/18 19:00 04/06/18 20:00 Temperature Pulse Rate 85 83 78 Respiratory Rate Blood Pressure Pulse Oximetry 04/06/18 20:45 04/06/18 21:00 04/06/18 22:00 Temperature 98.7 F Pulse Rate 82 78 82 Respiratory Rate 16 Blood Pressure 147/79 H Pulse Oximetry 97 04/06/18 23:00 04/06/18 23:59 04/07/18 00:00 Temperature 97.9 F Pulse Rate 80 78 78 Respiratory Rate 16 Blood Pressure 151/81 H Pulse Oximetry 96 04/07/18 01:00 04/07/18 02:00 04/07/18 02:07 Temperature Pulse Rate 74 76 Respiratory Rate 16 Blood Pressure Pulse Oximetry 04/07/18 03:00 04/07/18 03:27 04/07/18 04:00 Temperature Pulse Rate 75 76 73 Respiratory Rate 16 Blood Pressure 133/72 Pulse Oximetry 96 04/07/18 05:00 04/07/18 06:00 04/07/18 07:00 Temperature Pulse Rate 78 82 73 Respiratory Rate Blood Pressure Pulse Oximetry 04/07/18 08:00 Temperature Pulse Rate 78 Respiratory Rate Blood Pressure Pulse Oximetry Intake & Output 04/06/18 04/07/18 04/07/18 18:59 06:59 18:59 Intake Total 480 / 480 480 / 480 Output Total 1200 / 1200 1400 / 1400 Balance -720 / -720 -920 / -920 Weight 63 kg Intake: Oral 480 / 480 480 / 480 Output: Urine 1200 / 1200 1400 / 1400 Other: Date of Last Bowel Movement 04/06/18 04/06/18 04/06/18 # Bowel Movements 1 Narrative: GENERAL: Well-developed patient, no acute distress. CARDIOVASCULAR: Regular rate and rhythm without murmurs, gallops, or rubs. RESPIRATORY: Clear to auscultation. Breath sounds equal bilaterally. No wheezes , rales, or rhonchi. GASTROINTESTINAL: Abdomen soft, Mild tenderness on palpation. MUSCULOSKELETAL: Extremities without clubbing, cyanosis, or edema. NEURO: Alert & Oriented x4 to person, place, time, situation. Moves all ext x4 Results - Labs CBC & Chem 7: 04/07/18 10:53 04/07/18 10:53 Laboratory Results - last 24 hr 04/06/18 04/06/18 04/06/18 10:51 10:59 10:59 WBC 16.3 H RBC 3.02 L Hgb 9.2 L Hct 26.5 L MCV 87.8 MCH 30.5 MCHC 34.7 RDW 16.7 Plt Count 934 H MPV 8.5 Neut % (Auto) 83.9 H Lymph % (Auto) 2.9 L [place] % (Auto) 11.7 H Eos % (Auto) 1.2 Baso % (Auto) 0.3 Neut # (Auto) 13.7 H Lymph # (Auto) 0.5 L [place] # (Auto) 1.9 H Eos # (Auto) 0.2 Baso # (Auto) 0.0 WBC Differential . Differential Comment Auto diff final Sodium Potassium Chloride Carbon Dioxide Anion Gap BUN Creatinine Estimated GFR POC Glucose 270 H Random Glucose Calcium Phosphorus 2.6 Magnesium 1.6 Total Bilirubin Direct Bilirubin Indirect Bilirubin AST ALT Alkaline Phosphatase Total Protein Albumin Tacrolimus 04/06/18 04/06/18 04/06/18 10:59 10:59 10:59 WBC RBC Hgb Hct MCV MCH MCHC RDW Plt Count MPV Neut % (Auto) Lymph % (Auto) [place] % (Auto) Eos % (Auto) Baso % (Auto) Neut # (Auto) Lymph # (Auto) [place] # (Auto) Eos # (Auto) Baso # (Auto) WBC Differential Differential Comment Sodium 132 L Potassium 4.6 Chloride 95 L Carbon Dioxide 29.4 Anion Gap 8 BUN 35 H Creatinine 1.22 H Estimated GFR 45 L POC Glucose Random Glucose 265 H Calcium 9.9 Phosphorus Magnesium Total Bilirubin 0.1 L Direct Bilirubin 0.1 Indirect Bilirubin 0.0 AST 12 L ALT 13 Alkaline Phosphatase 232 H Total Protein 6.5 Albumin 2.4 L Tacrolimus 11.7 04/06/18 04/06/18 04/07/18 14:58 20:49 07:59 WBC RBC Hgb Hct MCV MCH MCHC RDW Plt Count MPV Neut % (Auto) Lymph % (Auto) [place] % (Auto) Eos % (Auto) Baso % (Auto) Neut # (Auto) Lymph # (Auto) [place] # (Auto) Eos # (Auto) Baso # (Auto) WBC Differential Differential Comment Sodium Potassium Chloride Carbon Dioxide Anion Gap BUN Creatinine Estimated GFR POC Glucose 274 H 361 H 144 H Random Glucose Calcium Phosphorus Magnesium Total Bilirubin Direct Bilirubin Indirect Bilirubin AST ALT Alkaline Phosphatase Total Protein Albumin Tacrolimus Microbiology 04/04/18 14:11 Blood - Line Aerobic Blood Culture - Preliminary No growth in 2 days 04/04/18 14:11 Blood - Line Anaerobic Blood Culture - Preliminary No growth in 2 days 04/04/18 14:15 Blood - Peripheral Aerobic Blood Culture - Preliminary No growth in 2 days 04/04/18 14:15 Blood - Peripheral Anaerobic Blood Culture - Preliminary No growth in 2 days Assessment and Plan - Assessment (1) SIRS (systemic inflammatory response syndrome) Code(s): R65.10 - Systemic inflammatory response syndrome (SIRS) of non- infectious origin without acute organ dysfunction Status: Acute (2) H/O kidney transplant Code(s): Z94.0 - Kidney transplant status Status: Acute (3) Abdominal pain Code(s): R10.9 - Unspecified abdominal pain Status: Acute (4) On total parenteral nutrition (TPN) Code(s): Z78.9 - Other specified health status Status: Acute (5) Renal insufficiency Code(s): N28.9 - Disorder of kidney and ureter, unspecified Status: Acute (6) DM (diabetes mellitus) Code(s): E11.9 - Type 2 diabetes mellitus without complications Status: Acute - Plan Fever, SIRS- fever now has resolved. Chest x-ray was within normal limits, urinalysis showed no infection Blood cultures thus far negative Seen by ID specialist today following CBC, Temperature, no infection found, Leukocytosis so far no new infection EBV, CMV negative, Hold Off antibiotics, Improving Leukocytosis. today 13.1 from 16.3 rectal bleed will monitor H/H- GI consulted. 04/05: Status post Sigmoidoscopy evidence of a Hyperemic appearing and inflamed prior surgical anastomosis, Internal Hemorrhoids, Status post EGD LA Class A esophagitis, Food residue in the gastric body, Normal duodenal Mucosa, recommended to continue PPIs. and Liquid diet. H/o renal transplant creatinine worsened today to 1.37 Transplanted in June [facility] at [facility], Dr. Louis Continue Prograf, adjusted by nephrology 04/06. Discussed at this time with Doctor Gilberto Patel. the patient developed Headache discussed with assurance specialist and Dilaudid was increased also given pseudoephedrine PRN, for short period of time, No clear Plan, but offered by Surgical team possible Stomach, Pancreas, Small intestine and Colon transplant. Plan to discontinue TPN, added Diazepam, increased Dilaudid improving pain, she did not accepted the use of Cymbalta to improve pain. Thrombocytosis reactive. 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 continue with left flank pain, status post Sigmoidoscopy and EGD read above. asked for CT abdomen and Pelvis Stomach distention and basal atelectasis on both lungs. as per doctor Jorge discussed with the patient about the possible need for Organ transplant. Type 2 diabetes- Uncontrolled increased Levemir to 10 units BID. initially started on insulin drip which was later on stopped; - now on regular insulin with TPN- along with accu-check with SSI. oral thrush; continue on Nystatin S and Swallow. DVT Prophylaxis Lovenox Code Status: Full code. Discussed Condition With: patient, Nurse and Surgical team doctor Patel Discharge Planning: not yet cleared by specialists.
[2018-04-07] MEDS: Acetaminophen 325 MG Tablet PO PRN (09:01)
[2018-04-07] MEDS: Enoxaparin Inj 40 MG/0.4 ML Syringe SQ SCH (09:04)
[2018-04-07] MEDS: Heparin Central Flush 100 UNIT/ML 5 ML Vial IV.FLUSH SCH (09:04)
[2018-04-07] MEDS: Calcium Carbonate 500 MG Tablet PO SCH ×2 (09:04→20:30)
[2018-04-07] MEDS: Nystatin Liq 500,000 UNIT/5 ML UDC SWISH-SWAL SCH ×4 (09:04→20:29)
[2018-04-07] MEDS: predniSONE 10 MG Tablet PO SCH (09:05)
[2018-04-07] MEDS: Potassium Phos/Sodium Phos 250 MG Tablet PO SCH ×3 (09:05→17:19)
[2018-04-07] MEDS: Senna/Docusate Sodium 8.6/50 MG Tablet PO SCH ×2 (09:07→20:47)
[2018-04-07] MEDS: Carvedilol 12.5 MG Tablet PO SCH ×2 (09:07→20:30)
[2018-04-07] MEDS: Lipase/Protease/Amylase 24/76/120 DR Capsule PO SCH ×3 (09:07→17:19)
[2018-04-07] MEDS: Diphenoxylate/Atropine 2.5/0.025 MG Tablet PO SCH ×3 (09:08→17:21)
[2018-04-07] MEDS: Insulin Detemir Inj 1,000 UNIT/10 ML Vial SQ SCH ×2 (09:09→20:43)
[2018-04-07 11:40] LABS: Baso # (Auto) 0.1 th/mm3 (0.0-0.2); Baso % (Auto) 0.7 % (0.0-2.0); Eos # (Auto) 0.1 th/mm3 (0.0-0.4); Hematocrit 28.4 % (35.0-46.0); Hemoglobin 8.8 gm/dL (11.6-15.3); Lymph # (Auto) 1.1 th/mm3 (1.0-4.8); Lymph % (Auto) 8.7 % (9.0-44.0); Mean Corpuscular HGB Conc 31.1 % (32.0-36.0); Mean Corpuscular Volume 90.1 fL (80.0-100.0); Mean Platelet Volume 8.8 fL (7.0-11.0); Mono # (Auto) 1.7 th/mm3 (0.0-0.9); Mono % (Auto) 12.7 % (0.0-8.0); Neut # (Auto) 10.1 th/mm3 (1.8-7.7); Neut % (Auto) 76.9 % (16.0-70.0); Platelet Count 989 th/mm3 (150-450); Red Blood Count 3.15 mil/mm3 (4.00-5.30); Red Cell Distribution Width 16.6 % (11.6-17.2); White Blood Count 13.1 th/mm3 (4.0-11.0)
[2018-04-07 11:45] LABS: Calcium 7.8 mg/dL (8.5-10.1); Carbon Dioxide 25.3 meq/L (21.0-32.0); Magnesium 1.4 mg/dL (1.5-2.5); Phosphorus 2.8 mg/dL (2.5-4.9); Potassium 4.3 meq/L (3.5-5.1)
--- NOTE | 2018-04-07 12:05 | P.PNGI ---
Subjective Interval history: Patient sitting up in bed. Physical therapy and progress. Patient reports intermittent nausea that is relieved by Zofran and continued loose stools with no noted bleeding. She reports mild headache and pain on left side of abdomen which she reports is a chronic pain. Overall, "feels okay today". <Yuliana Christine - Last Filed: 04/07/18 11:55> Physical Exam Vital signs: Vital Signs 04/06/18 12:00 04/06/18 13:00 04/06/18 14:00 Temperature Pulse Rate 84 80 81 Respiratory Rate Blood Pressure Pulse Oximetry 04/06/18 15:00 04/06/18 16:00 04/06/18 17:21 Temperature 98.6 F Pulse Rate 82 80 82 Respiratory Rate 16 Blood Pressure 132/74 Pulse Oximetry 97 04/06/18 18:00 04/06/18 19:00 04/06/18 20:00 Temperature Pulse Rate 85 83 78 Respiratory Rate Blood Pressure Pulse Oximetry 04/06/18 20:45 04/06/18 21:00 04/06/18 22:00 Temperature 98.7 F Pulse Rate 82 78 82 Respiratory Rate 16 Blood Pressure 147/79 H Pulse Oximetry 97 04/06/18 23:00 04/06/18 23:59 04/07/18 00:00 Temperature 97.9 F Pulse Rate 80 78 78 Respiratory Rate 16 Blood Pressure 151/81 H Pulse Oximetry 96 04/07/18 01:00 04/07/18 02:00 04/07/18 02:07 Temperature Pulse Rate 74 76 Respiratory Rate 16 Blood Pressure Pulse Oximetry 04/07/18 03:00 04/07/18 03:27 04/07/18 04:00 Temperature Pulse Rate 75 76 73 Respiratory Rate 16 Blood Pressure 133/72 Pulse Oximetry 96 04/07/18 05:00 04/07/18 06:00 04/07/18 07:00 Temperature 98.0 F Pulse Rate 78 82 78 Respiratory Rate 18 Blood Pressure 116/66 Pulse Oximetry 95 04/07/18 08:00 04/07/18 09:00 04/07/18 10:00 Temperature Pulse Rate 78 74 74 Respiratory Rate Blood Pressure Pulse Oximetry 04/07/18 11:00 Temperature 98.2 F Pulse Rate 75 Respiratory Rate 18 Blood Pressure 124/68 Pulse Oximetry 96 Intake & Output 04/06/18 04/07/18 04/07/18 18:59 06:59 18:59 Intake Total 480 / 480 480 / 480 Output Total 1200 / 1200 1400 / 1400 Balance -720 / -720 -920 / -920 Weight 63 kg Intake: Oral 480 / 480 480 / 480 Output: Urine 1200 / 1200 1400 / 1400 Other: Date of Last Bowel Movement 04/06/18 04/06/18 04/06/18 # Bowel Movements 1 - Constitutional mild distress - Routine HEENT Exam Head: Present: normocephalic - Routine Respiratory Exam Present: CTA bilaterally. Absent: accessory muscle use - Routine Abdominal Exam Present: soft, normoactive bowel sounds - Routine Extremities Exam Present: full ROM, pulses intact - Routine Skin Exam Present: dry, warm - Routine Neurological Exam Present: alert, oriented X3 - Routine Psychiatric Exam Present: normal affect, cooperative <Christine,Yuliana - Last Filed: 04/07/18 11:55> Vital signs: Vital Signs 04/06/18 17:21 04/06/18 18:00 04/06/18 19:00 Temperature Pulse Rate 82 85 83 Respiratory Rate Blood Pressure Pulse Oximetry 04/06/18 20:00 04/06/18 20:45 04/06/18 21:00 Temperature 98.7 F Pulse Rate 78 82 78 Respiratory Rate 16 Blood Pressure 147/79 H Pulse Oximetry 97 04/06/18 22:00 04/06/18 23:00 04/06/18 23:59 Temperature 97.9 F Pulse Rate 82 80 78 Respiratory Rate 16 Blood Pressure 151/81 H Pulse Oximetry 96 04/07/18 00:00 04/07/18 01:00 04/07/18 02:00 Temperature Pulse Rate 78 74 76 Respiratory Rate Blood Pressure Pulse Oximetry 04/07/18 02:07 04/07/18 03:00 04/07/18 03:27 Temperature Pulse Rate 75 76 Respiratory Rate 16 16 Blood Pressure 133/72 Pulse Oximetry 96 04/07/18 04:00 04/07/18 05:00 04/07/18 06:00 Temperature Pulse Rate 73 78 82 Respiratory Rate Blood Pressure Pulse Oximetry 04/07/18 07:00 04/07/18 08:00 04/07/18 09:00 Temperature 98.0 F Pulse Rate 78 78 74 Respiratory Rate 18 Blood Pressure 116/66 Pulse Oximetry 95 04/07/18 10:00 04/07/18 11:00 04/07/18 12:00 Temperature 98.2 F Pulse Rate 74 75 74 Respiratory Rate 18 Blood Pressure 124/68 Pulse Oximetry 96 04/07/18 13:00 04/07/18 14:00 04/07/18 15:00 Temperature 98.4 F Pulse Rate 76 74 74 Respiratory Rate 18 Blood Pressure 118/68 Pulse Oximetry 04/07/18 16:00 Temperature Pulse Rate 73 Respiratory Rate Blood Pressure Pulse Oximetry Intake & Output 04/06/18 04/07/18 04/07/18 18:59 06:59 18:59 Intake Total 480 / 480 480 / 480 Output Total 1200 / 1200 1400 / 1400 Balance -720 / -720 -920 / -920 Weight 63 kg Intake: Oral 480 / 480 480 / 480 Output: Urine 1200 / 1200 1400 / 1400 Other: Date of Last Bowel Movement 04/06/18 04/06/18 04/06/18 # Bowel Movements 1 <Miller Pollard - Last Filed: 04/07/18 17:09> Results - Labs CBC & Chem 7: 04/07/18 10:53 04/07/18 10:53 Laboratory Results - last 24 hr 04/06/18 04/06/18 04/06/18 10:59 10:59 10:59 WBC RBC Hgb Hct MCV MCH MCHC RDW Plt Count MPV Neut % (Auto) Lymph % (Auto) Haines % (Auto) Eos % (Auto) Baso % (Auto) Neut # (Auto) Lymph # (Auto) Haines # (Auto) Eos # (Auto) Baso # (Auto) WBC Differential Differential Comment Sodium Potassium Chloride Carbon Dioxide Anion Gap BUN Creatinine Estimated GFR POC Glucose Random Glucose Calcium Phosphorus 2.6 Magnesium 1.6 Total Bilirubin 0.1 L Direct Bilirubin 0.1 Indirect Bilirubin 0.0 AST 12 L ALT 13 Alkaline Phosphatase 232 H Total Protein 6.5 Albumin 2.4 L Tacrolimus 11.7 04/06/18 04/06/18 04/07/18 14:58 20:49 07:59 WBC RBC Hgb Hct MCV MCH MCHC RDW Plt Count MPV Neut % (Auto) Lymph % (Auto) Haines % (Auto) Eos % (Auto) Baso % (Auto) Neut # (Auto) Lymph # (Auto) Haines # (Auto) Eos # (Auto) Baso # (Auto) WBC Differential Differential Comment Sodium Potassium Chloride Carbon Dioxide Anion Gap BUN Creatinine Estimated GFR POC Glucose 274 H 361 H 144 H Random Glucose Calcium Phosphorus Magnesium Total Bilirubin Direct Bilirubin Indirect Bilirubin AST ALT Alkaline Phosphatase Total Protein Albumin Tacrolimus 04/07/18 04/07/18 10:53 10:53 WBC 13.1 H RBC 3.15 L Hgb 8.8 L Hct 28.4 L MCV 90.1 MCH 28.0 MCHC 31.1 L RDW 16.6 Plt Count 989 H MPV 8.8 Neut % (Auto) 76.9 H Lymph % (Auto) 8.7 L Haines % (Auto) 12.7 H Eos % (Auto) 1.0 Baso % (Auto) 0.7 Neut # (Auto) 10.1 H Lymph # (Auto) 1.1 Haines # (Auto) 1.7 H Eos # (Auto) 0.1 Baso # (Auto) 0.1 WBC Differential . Differential Comment Auto diff final Sodium 139 Potassium 4.3 Chloride 102 Carbon Dioxide 25.3 Anion Gap 12 BUN 27 H Creatinine 1.05 H Estimated GFR 54 L POC Glucose Random Glucose 216 H Calcium 7.8 L D Phosphorus 2.8 Magnesium 1.4 L Total Bilirubin Direct Bilirubin Indirect Bilirubin AST ALT Alkaline Phosphatase Total Protein Albumin Tacrolimus Microbiology 04/04/18 14:11 Blood - Line Aerobic Blood Culture - Preliminary No growth in 3 days 04/04/18 14:11 Blood - Line Anaerobic Blood Culture - Preliminary No growth in 3 days 04/04/18 14:15 Blood - Peripheral Aerobic Blood Culture - Preliminary No growth in 3 days 04/04/18 14:15 Blood - Peripheral Anaerobic Blood Culture - Preliminary No growth in 3 days <Yuliana Christine - Last Filed: 04/07/18 11:55> - Labs CBC & Chem 7: 04/07/18 10:53 04/07/18 10:53 Laboratory Results - last 24 hr 04/06/18 04/06/18 04/07/18 10:59 20:49 07:59 WBC RBC Hgb Hct MCV MCH MCHC RDW Plt Count MPV Neut % (Auto) Lymph % (Auto) Haines % (Auto) Eos % (Auto) Baso % (Auto) Neut # (Auto) Lymph # (Auto) Haines # (Auto) Eos # (Auto) Baso # (Auto) WBC Differential Differential Comment Sodium Potassium Chloride Carbon Dioxide Anion Gap BUN Creatinine Estimated GFR POC Glucose 361 H 144 H Random Glucose Calcium Phosphorus 2.6 Magnesium 1.6 Tacrolimus 04/07/18 04/07/18 04/07/18 10:53 10:53 10:53 WBC 13.1 H RBC 3.15 L Hgb 8.8 L Hct 28.4 L MCV 90.1 MCH 28.0 MCHC 31.1 L RDW 16.6 Plt Count 989 H MPV 8.8 Neut % (Auto) 76.9 H Lymph % (Auto) 8.7 L Haines % (Auto) 12.7 H Eos % (Auto) 1.0 Baso % (Auto) 0.7 Neut # (Auto) 10.1 H Lymph # (Auto) 1.1 Haines # (Auto) 1.7 H Eos # (Auto) 0.1 Baso # (Auto) 0.1 WBC Differential . Differential Comment Auto diff final Sodium 139 Potassium 4.3 Chloride 102 Carbon Dioxide 25.3 Anion Gap 12 BUN 27 H Creatinine 1.05 H Estimated GFR 54 L POC Glucose Random Glucose 216 H Calcium 7.8 L D Phosphorus 2.8 Magnesium 1.4 L Tacrolimus 12.8 Microbiology 04/04/18 14:11 Blood - Line Aerobic Blood Culture - Preliminary No growth in 3 days 04/04/18 14:11 Blood - Line Anaerobic Blood Culture - Preliminary No growth in 3 days 04/04/18 14:15 Blood - Peripheral Aerobic Blood Culture - Preliminary No growth in 3 days 04/04/18 14:15 Blood - Peripheral Anaerobic Blood Culture - Preliminary No growth in 3 days - Imaging Impressions Head CT 04/07/18 00:00 CONCLUSION: 1. Cortical atrophy. 2. No acute intracranial abnormality . <Miller Pollard - Last Filed: 04/07/18 17:09> Assessment and Plan - Plan Abdominal pain with leukocytosispatient has quite extensive GI history. She has had complete colectomy with small bowel resection, states she only has about 33 cm of small intestine remaining. 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 Patient was able to be on only p.o. up until about 7 months ago and she has since remained on TPN. Patient does have chronic diarrhea. Patient also reports known history of gastroparesis, has previously tried erythromycin with no improvement in her symptoms. Was on Reglan prior to admission. CT abdomen/pelvis without IV contrast (03/27/18)--> Status post cholecystectomy with prominent intrahepatic pneumobilia. Numerous subcentimeter hypodensities lesions in both lobes of the liver, most prominently in the right lobe. Although nonspecific, cannot exclude hepatic abscesses in the appropriate clinical setting. Comparisons with prior CT examinations would be beneficial to determine chronicity. 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 Mild hydronephrosis of the transplant kidney without perirenal fluid collections or radiopaque calculi. Status post near total colectomy with multiple suture lines in the left upper quadrant. Several loops of small bowel in the left upper quadrant are marginally dilated without definitive evidence for bowel obstruction. Exam was repeated yesterday with no changes in findings. EGD (04/05) There was [place] Class A esophagitis noted. Approx 450cc of fluid retained in the stomach. Suctioned. Gastro-jujenostomy identified. Small bowel mucosa normal. Food residue in the gastric body. Normal duodenal mucosa Sigmoidoscopy --> There was evidence of prior surgical anastomosis; biopsy was performed using cold forceps. Internal and external hemorrhoids. 04/07/18 Abdominal pain-patient endorsing left-sided abdominal pain which he states is chronic. Reports nausea and denies any vomiting. TPN discontinued, patient taking p.o. liquids as tolerated. Patient reporting continued chronic diarrhea, denies any blood noted. Hemoglobin 8.8 hematocrit 28.4 Plan -P.o. liquids as tolerated -Creon -Reglan -Levsin -Antiemetics and analgesia as per attending -Monitor labs -Supportive care -Further recommendations to follow This patient has been seen by myself and Dr. Pollard and this note is written on his behalf - Attending Attestation Dr. Pollard <Yuliana Christine - Last Filed: 04/07/18 11:55> - Plan Seen and examined with [facility], feeling a whole lot better since TPN stopped. Will have port removed today. Full liquid diet. Advance as tolerated. GI will sign off. Fu as outpatient to consider Deisy heredias. Discussed with her. Thank you The exam, history, and the medical decision-making described in the above note were completed with the assistance of the mid-level provider. I reviewed and agree with the findings presented. I attest that I had a [id number] encounter with the patient on the same day, and personally performed and documented my assessment and findings in the medical record. <Miller Pollard - Last Filed: 04/07/18 17:09>
--- NOTE | 2018-04-07 12:08 | P.DIET ---
Nutritional Evaluation Type of nutrition evaluation: follow-up Nutrition consult regarding: TPN/PPN, Diet Evaluation Nutrition screening: [facility] [place] (03/28/18 [facility] TPN/PPN h/o TPN use at home) Screening comments: 04/06/18 [facility] [place]: weaning off TPN per GI, resume PO, review kcal requirements, rec for PO etc 04/02 [facility] [place]: Pt back on diet, please assist with TPN adjustments Subjective Subjective Comments: Pt reports she is drinking the Glucerna Shakes and would like a different flavor. Pt provided w/Nutrition Education for Gastroparesis and CHO-counting, small meals/feedings daily. Discussed pt's assessed needs for kcals and protein and encouraged her to track/journal her po intake daily to ensure she is meeting her assessed needs. Brought forward from RD note on 03/30: Pt says she eats very little at home- usually a slice of toast and a protein shake daily. Pt says meats and vegetables "go right through me". Pt declines Beneprotein packets and says she has an aversion to adding powder to drinks. Pt is receptive to drinking Glucerna Shakes and says she has had these in the past. Pt's home TPN runs for 12-hours daily so she can "be up moving around". Objective - Diagnosis Fever, Renal Transplant - Objective [place] body weight: 61.4 kg % IBW: 91 Body Weight Used for Calculations: Actual (55.9kg) Energy Needs - Lower Range (kCal/kg): 30 Energy Needs - Upper Range (kCal/kg): 35 Lower Limit kCal/kg (kCals): 1,677 Upper Limit kCal/kg (kCals): 1,957 Lower Limit Protein Factor (Grams per Kg): 0.8 Upper Limit Protein Factor (Grams per Kg): 1.0 Lower Protein Needs (Protein): 45 Upper Protein Needs (Protein): 56 Fluid Factor (ml/kg): 30 Estimated Fluid Needs (ml): 1,677 Dietitian Reviewed in Medical Record: Current diet, Curent medications, Intake & Output, Labs, Medical history, TPN/PPN Diet Order: Full Liquid Oral Diet Intake Amount: Poor <50% Objective Comments: PMH: DM, Dumping Syndrome, Gastroparesis related to adhesions and stenosis of the bowel-on TPN at home, GERD, chronic diarrhea, h/o bilateral nephrectomy and Right Kidney transplant 06/2017 ; h/o splenectomy, colectomy, oophrectomy, pancreatectomy, liver function failure; intestinal surgery 01/20/18-pt has 260cm of small bowel w/No Colon Labs Include: Glucose 216, POC Glucose 144, BUN 27, Creatinine 1.05, estGFR 54 , ALbumin 2.4 +1BM, +UOP 2600ml Feeding - Current PO Supplement Current Supplement: Glucerna Shake Current Frequency of Supplement: Three times a day Current kCals Provided by Supplement: 220 Current Protein Provided by Supplement: 10 Assessment Assessment: Pt is at high nutrition risk r/t medical history and need for TPN. TPN has been discontinued per GI. Rec diet as 1800ADA Soft w/Glucerna Shakes between meals/ feedings. Pt provided w/Nutrition Education for Gastroparesis, DM and CHO- Counting, small meals/feedings daily. Discussed pt's assessed nutritional needs daily. Pt encouraged to track/journal her po intake to ensure she is meeting her assessed needs. Pt receptive to all education provided. Pt's questions answered to her satisfaction. RD contact info provided for additional questions as needed. Continue Glucerna Shakes TID w/different flavor. Labs/electrolytes reviewed. Wt changes noted. Recommendations: 1. TPN has been discontinued per GI 2. Rec diet as 1800ADA Soft w/Glucerna Shakes between meals/feedings 3. Pt provided w/Nutrition Education for Gastroparesis, DM and CHO-Counting, small meals/feedings daily 4. Encouraged pt to track/journal her po intake to ensure she is meeting her assessed needs 5. Pt's questions answered to her satisfaction 6. RD contact info provided for additional questions as needed 7. Continue Glucerna Shakes TID w/different flavor Dietitian to Monitor: Lab values, Electrolytes, Renal labs, Glucose level, Supplement acceptance, Intake & Output, Diet tolerance, Weight change, PO Intake , Diet advancement, Medical course
--- NOTE | 2018-04-07 14:40 | CT ---
EXAM DATE: 04/07/2018 2:27 PM EDT AGE/SEX: 57 years / Female INDICATIONS: Cephalgia. CLINICAL DATA: This is the patient's initial encounter. Patient reports that signs and symptoms have been present for 1 day and indicates a pain score of 6/10. MEDICAL/SURGICAL HISTORY: Diabetes. Gastroesophageal reflux disease. Renal failure. Hysterectomy. RADIATION DOSE: 56.35 CTDI (mGy) COMPARISON: No prior exams available for comparison. TECHNIQUE: CT of the head without contrast. Using automated exposure control and adjustment of the mA and/or kV according to patient size, radiation dose was kept as low as reasonably achievable to ob tain optimal diagnostic quality images. DICOM format image data is available electronically for revi ew and comparison. FINDINGS: Cerebrum: The ventricles are normal for age. Cortical atrophy. No evidence of midline shift, mass le ann, hemorrhage or acute infarction. No extraaxial fluid collections are seen. Posterior Fossa: The cerebellum and brainstem are intact. The 4th ventricle is midline. The cerebe llopontine angle is unremarkable. Extracranial: The visualized portion of the orbits is intact. Skull: The calvaria is intact. No evidence of skull fracture. CONCLUSION: 1. Cortical atrophy. 2. No acute intracranial abnormality . Electronically signed by: Kvng Carter MD 04/07/2018 2:39 PM EDT
--- NOTE | 2018-04-07 14:48 | P.PNONC ---
Subjective Interval history: Patient lying in bed, no acute distress. Talking on the telephone. She denies any shortness of breath or pain. She was finally agreeable to start anagrelide yesterday. She inquires if there is anything else she can take in lieu of anagrelide as she is already "losing her hair". She states she had a severe reaction to Hydrea which included pancytopenia and she will not take that medication anymore. Objective Vital Signs/Intake & Output: Vital Signs 04/06/18 15:00 04/06/18 16:00 04/06/18 17:21 Temperature 98.6 F Pulse Rate 82 80 82 Respiratory Rate 16 Blood Pressure 132/74 Pulse Oximetry 97 04/06/18 18:00 04/06/18 19:00 04/06/18 20:00 Temperature Pulse Rate 85 83 78 Respiratory Rate Blood Pressure Pulse Oximetry 04/06/18 20:45 04/06/18 21:00 04/06/18 22:00 Temperature 98.7 F Pulse Rate 82 78 82 Respiratory Rate 16 Blood Pressure 147/79 H Pulse Oximetry 97 04/06/18 23:00 04/06/18 23:59 04/07/18 00:00 Temperature 97.9 F Pulse Rate 80 78 78 Respiratory Rate 16 Blood Pressure 151/81 H Pulse Oximetry 96 04/07/18 01:00 04/07/18 02:00 04/07/18 02:07 Temperature Pulse Rate 74 76 Respiratory Rate 16 Blood Pressure Pulse Oximetry 04/07/18 03:00 04/07/18 03:27 04/07/18 04:00 Temperature Pulse Rate 75 76 73 Respiratory Rate 16 Blood Pressure 133/72 Pulse Oximetry 96 04/07/18 05:00 04/07/18 06:00 04/07/18 07:00 Temperature 98.0 F Pulse Rate 78 82 78 Respiratory Rate 18 Blood Pressure 116/66 Pulse Oximetry 95 04/07/18 08:00 04/07/18 09:00 04/07/18 10:00 Temperature Pulse Rate 78 74 74 Respiratory Rate Blood Pressure Pulse Oximetry 04/07/18 11:00 04/07/18 12:00 04/07/18 13:00 Temperature 98.2 F Pulse Rate 75 74 76 Respiratory Rate 18 Blood Pressure 124/68 Pulse Oximetry 96 Intake & Output 04/06/18 04/07/1818 18:59 06:59 18:59 Intake Total 480 / 480 480 / 480 Output Total 1200 / 1200 1400 / 1400 Balance -720 / -720 -920 / -920 Weight 63 kg Intake: Oral 480 / 480 480 / 480 Output: Urine 1200 / 1200 1400 / 1400 Other: Date of Last Bowel Movement 04/06/18 04/06/18 04/06/18 # Bowel Movements 1 Result Diagrams: 04/07/18 10:53 04/07/18 10:53 Laboratory Results: Laboratory Results - last 24 hr 04/06/18 04/06/18 04/06/18 10:59 14:58 20:49 WBC RBC Hgb Hct MCV MCH MCHC RDW Plt Count MPV Neut % (Auto) Lymph % (Auto) Wise % (Auto) Eos % (Auto) Baso % (Auto) Neut # (Auto) Lymph # (Auto) Wise # (Auto) Eos # (Auto) Baso # (Auto) WBC Differential Differential Comment Sodium Potassium Chloride Carbon Dioxide Anion Gap BUN Creatinine Estimated GFR POC Glucose 274 H 361 H Random Glucose Calcium Phosphorus 2.6 Magnesium 1.6 Tacrolimus 04/07/18 04/07/18 04/07/18 07:59 10:53 10:53 WBC 13.1 H RBC 3.15 L Hgb 8.8 L Hct 28.4 L MCV 90.1 MCH 28.0 MCHC 31.1 L RDW 16.6 Plt Count 989 H MPV 8.8 Neut % (Auto) 76.9 H Lymph % (Auto) 8.7 L Wise % (Auto) 12.7 H Eos % (Auto) 1.0 Baso % (Auto) 0.7 Neut # (Auto) 10.1 H Lymph # (Auto) 1.1 Wise # (Auto) 1.7 H Eos # (Auto) 0.1 Baso # (Auto) 0.1 WBC Differential . Differential Comment Auto diff final Sodium 139 Potassium 4.3 Chloride 102 Carbon Dioxide 25.3 Anion Gap 12 BUN 27 H Creatinine 1.05 H Estimated GFR 54 L POC Glucose 144 H Random Glucose 216 H Calcium 7.8 L D Phosphorus 2.8 Magnesium 1.4 L Tacrolimus 04/07/18 10:53 WBC RBC Hgb Hct MCV MCH MCHC RDW Plt Count MPV Neut % (Auto) Lymph % (Auto) Wise % (Auto) Eos % (Auto) Baso % (Auto) Neut # (Auto) Lymph # (Auto) Wise # (Auto) Eos # (Auto) Baso # (Auto) WBC Differential Differential Comment Sodium Potassium Chloride Carbon Dioxide Anion Gap BUN Creatinine Estimated GFR POC Glucose Random Glucose Calcium Phosphorus Magnesium Tacrolimus 12.8 Culture Results: Microbiology 04/04/18 14:11 Aerobic Blood Culture - Preliminary Blood - Line No growth in 3 days Anaerobic Blood Culture - Preliminary No growth in 3 days 04/04/18 14:15 Aerobic Blood Culture - Preliminary Blood - Peripheral No growth in 3 days Anaerobic Blood Culture - Preliminary No growth in 3 days Imaging Studies: Impressions Head CT 04/07/18 00:00 CONCLUSION: 1. Cortical atrophy. 2. No acute intracranial abnormality . Medications: Active Medications Generic Name Dose Route Start Last Admin Trade Name Freq PRN Reason Stop Dose Admin Acetaminophen 650 mg 03/27/18 22:38 04/07/18 09:01 Tylenol PO 650 mg Q4H PRN Administration Temp > 100.4 Lipase/Protease/Amylase 1 cap 03/28/18 08:00 04/07/18 12:[address] 24/76/120 PO 1 cap TIDAC RONALD Administration Anagrelide HCl 0.5 mg 03/27/18 23:30 04/07/18 12:36 Agrylin PO 0.5 mg Q12H RONALD Administration Atorvastatin Calcium 20 mg 03/28/18 09:00 04/07/18 09:06 Lipitor PO 20 mg DAILY RONALD Administration Azathioprine 100 mg 03/28/18 09:00 03/29/18 10:16 Imuran PO Not Given DAILY [facility] Benzocaine/Menthol 1 lozenge 04/01/18 10:00 04/04/18 05:19 Chloraseptic Sore Throat Lozenge BUCCAL 1 lozenge Q4H PRN Administration sore throat Calcium Carbonate 500 mg 03/28/18 09:00 04/07/18 09:04 Oscal PO 500 mg BID RONALD Administration Calcium Carbonate 500 mg 03/29/18 08:16 04/04/18 03:49 Tums Chew CHEW 500 mg Q2H PRN Administration DYSPEPSIA Carvedilol 12.5 mg 03/28/18 09:00 04/07/18 09:07 Coreg PO 12.5 mg BID RONALD Administration Clonidine HCl 0.1 mg 03/29/18 08:15 03/30/18 16:24 Catapres PO 0.1 mg Q6H PRN Administration SBP>160, DBP>90 Diphenoxylate HCl/Atropine 1 tab 03/28/18 09:00 04/07/18 12:43 Lomotil PO 1 tab TID RONALD Administration Enoxaparin Sodium 40 mg 03/28/18 09:00 04/07/18 09:04 Lovenox Inj SQ 40 mg DAILY RONALD Administration Heparin Sodium (Porcine) 0 unit 03/28/18 01:25 03/28/18 05:44 Heparin Central Flush IV.FLUSH 250 unit PRN PRN Administration Flush each lumen Heparin Sodium (Porcine) 0 unit 03/28/18 09:00 04/07/18 09:04 Heparin Central Flush IV.FLUSH 500 unit DAILY RONALD Administration Hydromorphone HCl 4 mg 04/06/18 17:00 04/07/18 10:06 Dilaudid PO 4 mg Q4H PRN Administration PAIN SCALE 6 TO 10 Hydroxyzine HCl 50 mg 04/03/18 03:11 04/05/18 13:19 Vistaril Inj IM 50 mg Q6H PRN Administration pruritis Fat Emulsion Intravenous 250 mls @ 31.25 mls/hr 03/30/18 20:00 04/06/18 20:59 Intralipid 20% Inj IV.SIG Not Given Q24H RONALD Dextrose/Sodium Chloride 1,000 mls @ 200 mls/hr 03/30/18 11:30 04/07/18 11:22 D5w/Normal Saline Inj IV.CONT Not Given .Q5H RONALD Sodium Chloride 1,000 mls @ 250 mls/hr 03/30/18 11:30 04/07/18 12:22 Ns Inj IV.CONT Not Given .Q4H RONALD Potassium Chloride 20 meq in 100 mls @ 100 mls/hr 03/30/18 11:28 04/01/18 14: 57 Kcl 20 Meq Premix Inj IV.SIG Infused Q1H PRN Infusion for K+ 4.5 to 5 Sodium Chloride 11 meq/ Sodium 2,059.6937 mls @ 65.009 mls/hr 03/31/18 20:00 04/06/18 21:00 Acetate 59 meq/ Potassium IV.SIG Not Given Chloride 40 meq/ Magnesium Q24H RONALD Chloride 10 meq/ Calcium Chloride 9 meq/ Multivitamins 10 ml/ Folic Acid 1 mg/ Insulin Human Regular 30 units / Amino Acids/Electrolytes/ Dextrose Sodium Chloride 500 mls @ 30 mls/hr 04/05/18 14:00 04/05/18 13:43 Ns Inj IV.SIG Not Given .Q10H RONALD Insulin Detemir 10 unit 04/07/18 09:00 04/07/18 09:09 Levemir Inj SQ 10 unit BID RONALD Administration Insulin Human Regular 0 units 03/31/18 12:00 04/07/18 12:35 Novolin R Correctional Sugar Inj SQ 3 units ACHS RONALD Administration Protocol Metoclopramide HCl 5 mg 04/05/18 18:30 04/07/18 12:37 Reglan Inj IV.PUSH 5 mg Q6H ORNALD Administration Nystatin 5 ml 04/02/18 10:00 04/07/18 12:36 Mycostatin Liq SWISH-SWAL 5 ml QID RONALD Administration Ondansetron HCl 4 mg 04/01/18 00:33 04/07/18 10:06 Zofran Inj IV.PUSH 4 mg Q6H PRN Administration NAUSEA OR VOMITING Pantoprazole Sodium 40 mg 03/28/18 09:00 04/07/18 09:06 Protonix PO 40 mg BID RONALD Administration Potassium Phos/Sodium Phos 250 mg 04/03/18 13:00 04/07/18 12:36 K-Phos Neutral PO 250 mg TID RONALD Administration Prednisone 10 mg 03/28/18 09:00 04/07/18 09:05 Deltasone PO 10 mg DAILY RONALD Administration Promethazine HCl 25 mg 03/29/18 12:06 04/03/18 02:34 Phenergan PO 25 mg Q4H PRN Administration NAUSEA OR VOMITING Pseudoephedrine HCl 30 mg 04/05/18 17:36 04/06/18 06:26 Sudafed PO 30 mg Q6H PRN Administration HEADACHE Senna/Docusate Sodium 1 tab 03/28/18 09:00 04/07/18 09:07 Saray-Colace PO 1 tab BID RONALD Administration Sodium Chloride 0 ml 03/28/18 09:00 04/07/18 11:19 Ns Flush IV.FLUSH 2 ml DAILY RONALD Administration Sodium Chloride 0 ml 03/28/18 01:25 03/28/18 05:45 Ns Flush IV.FLUSH 10 ml PRN PRN Administration FLUSH AFTER USING IV ACCESS Tacrolimus 3 mg 04/05/18 23:30 04/06/18 23:57 Prograf PO 3 mg DAILY@2330 RONALD Administration Tacrolimus 3 mg 04/06/18 18:00 04/07/18 12:42 Prograf PO 3 mg DAILY@1130 RONALD Administration Objective Remarks: GENERAL: Well-nourished, well-developed middle-aged female patient, in no acute distress. SKIN: Warm and dry. HEAD: Normocephalic. EYES: No scleral icterus. No injection or drainage. NECK: Supple, trachea midline. CARDIOVASCULAR: Regular rate and rhythm without murmurs. RESPIRATORY: Breath sounds equal bilaterally. No accessory muscle use. GASTROINTESTINAL: Abdomen soft, LUQ tender, nondistended. EXTREMITIES: No cyanosis, or edema. MUSCULOSKELETAL: Adequate muscle tone. NEUROLOGICAL: No obvious focal deficit. Awake, alert, and oriented x3. PSYCHIATRIC: Appropriate mood and affect; insight and judgment normal. Assessment/Plan - Plan 1. Thrombocytosis: History of with work up at [facility], per outside notes is reactive. JAK2, CALR, MPL studies pending. Flow cytometry is pending. Peripheral blood smear showed moderate normochromic, normocytic anemia and thrombocytopenia. 2. Patient agreed to anagrelide, which started yesterday. She inquires if there is anything else she may take, as she feels she is already starting to lose her hair. She refuses Hydrea, stating it caused her severe pancytopenia in the past. 3. 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 Previously on treatment dose of 60 mg subq daily due to recent VTE. Would increase to treatment dose as soon as possible. Lovenox reinitiated today. 4. GIB: GI team following. Hemoglobin roughly stable. s/p GI procedure with no active bleeding. Sigmoid colon biopsy revealed moderately active chronic colitis with nonspecific features. - Attending Statement The exam, history, and the medical decision-making described in the above note were completed with the assistance of the mid-level provider. I reviewed and agree with the findings presented. I attest that I had a [id number] encounter with the patient on the same day, and personally performed and documented my assessment and findings in the medical record. 57 yoF with complicated past medication history. she is s/p renal transplant due to polycystic renal disease. 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 She has been TPN for the past several months. She has been seen by hematology at the [facility] where she had work up for extreme thrombocytosis, greater than 1 million. She also has a history of VTE and is on enoxaparin 60 mg subq BId in the outpatient setting. Awaiting hematology records from [facility]. Awaiting results of JAK2, CALR, MPL. In this setting reactive causes of thrombocytosis can include infection, inflammation, surgery, trauma. 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 Traditionally in the setting of reactive thrombocytosis due no start on platelet lowering agents. However in the past when her platelet count is elevated she has had VTE. She was on this medication in the outpateint. setting.
[2018-04-07] MEDS ORDERED: Mag Sulf 1 gm/100 ml Premix 100 ML IV.SIG ONE (16:21)
--- NOTE | 2018-04-07 16:23 | P.PNNP ---
Subjective Interval history: Patient is doing better Physical Exam Vital signs: Vital Signs 04/06/18 17:21 04/06/18 18:00 04/06/18 19:00 Temperature Pulse Rate 82 85 83 Respiratory Rate Blood Pressure Pulse Oximetry 04/06/18 20:00 04/06/18 20:45 04/06/18 21:00 Temperature 98.7 F Pulse Rate 78 82 78 Respiratory Rate 16 Blood Pressure 147/79 H Pulse Oximetry 97 04/06/18 22:00 04/06/18 23:00 04/06/18 23:59 Temperature 97.9 F Pulse Rate 82 80 78 Respiratory Rate 16 Blood Pressure 151/81 H Pulse Oximetry 96 04/07/18 00:00 04/07/18 01:00 04/07/18 02:00 Temperature Pulse Rate 78 74 76 Respiratory Rate Blood Pressure Pulse Oximetry 04/07/18 02:07 04/07/18 03:00 04/07/18 03:27 Temperature Pulse Rate 75 76 Respiratory Rate 16 16 Blood Pressure 133/72 Pulse Oximetry 96 04/07/18 04:00 04/07/18 05:00 04/07/18 06:00 Temperature Pulse Rate 73 78 82 Respiratory Rate Blood Pressure Pulse Oximetry 04/07/18 07:00 04/07/18 08:00 04/07/18 09:00 Temperature 98.0 F Pulse Rate 78 78 74 Respiratory Rate 18 Blood Pressure 116/66 Pulse Oximetry 95 04/07/18 10:00 04/07/18 11:00 04/07/18 12:00 Temperature 98.2 F Pulse Rate 74 75 74 Respiratory Rate 18 Blood Pressure 124/68 Pulse Oximetry 96 04/07/18 13:00 04/07/18 14:00 04/07/18 15:00 Temperature 98.4 F Pulse Rate 76 74 74 Respiratory Rate 18 Blood Pressure 118/68 Pulse Oximetry 04/07/18 16:00 Temperature Pulse Rate 73 Respiratory Rate Blood Pressure Pulse Oximetry Intake & Output 04/06/18 04/07/18 04/07/18 18:59 06:59 18:59 Intake Total 480 / 480 480 / 480 Output Total 1200 / 1200 1400 / 1400 Balance -720 / -720 -920 / -920 Weight 63 kg Intake: Oral 480 / 480 480 / 480 Output: Urine 1200 / 1200 1400 / 1400 Other: Date of Last Bowel Movement 04/06/18 04/06/18 04/06/18 # Bowel Movements 1 Narrative: GENERAL: Well-developed patient, no acute distress. CARDIOVASCULAR: Regular rate and rhythm without murmurs, gallops, or rubs. RESPIRATORY: Clear to auscultation. Breath sounds equal bilaterally. No wheezes , rales, or rhonchi. GASTROINTESTINAL: Abdomen soft, Mild tenderness on palpation. MUSCULOSKELETAL: Extremities without clubbing, cyanosis, or edema. NEURO: Alert & Oriented x4 to person, place, time, situation. Moves all ext x4 Assessment and Plan - Assessment (1) Acute renal failure Code(s): N17.9 - Acute kidney failure, unspecified Status: Acute (2) Fever Code(s): R50.9 - Fever, unspecified Status: Acute Qualifiers: Fever type: unspecified Qualified Code(s): R50.9 - Fever, unspecified (3) Renal transplant recipient Code(s): Z94.0 - Kidney transplant status Status: Acute (4) On total parenteral nutrition (TPN) Code(s): Z78.9 - Other specified health status Status: Acute (5) DM (diabetes mellitus) Code(s): E11.9 - Type 2 diabetes mellitus without complications Status: Acute (6) Abdominal pain Code(s): R10.9 - Unspecified abdominal pain Status: Acute - Plan Patient has acute renal failure with baseline creatinine around 0.9 Phosphorus and magnesium were replaced Doing better creatinine fluctuates 1.05 Thrush nystatin added Thrombocytosis platelets are climbing up hematology following started Anagrelide Leukocytosis improved Central line to be removed tomorrow Tacrolimus dose being adjusted by Dr. Patel levels high dose reduced to 3 mg every 12 hours sigmoidoscopy done biopsy site of anastomosis Blood glucose fluctuate Monitor tacrolimus level Follow BMP Avoid nephrotoxins
--- NOTE | 2018-04-07 17:04 | P.PNTS ---
Subjective Interval history: Feels better today. Physical Exam Vital signs: Vital Signs 04/06/18 17:21 04/06/18 18:00 04/06/18 19:00 Temperature Pulse Rate 82 85 83 Respiratory Rate Blood Pressure Pulse Oximetry 04/06/18 20:00 04/06/18 20:45 04/06/18 21:00 Temperature 98.7 F Pulse Rate 78 82 78 Respiratory Rate 16 Blood Pressure 147/79 H Pulse Oximetry 97 04/06/18 22:00 04/06/18 23:00 04/06/18 23:59 Temperature 97.9 F Pulse Rate 82 80 78 Respiratory Rate 16 Blood Pressure 151/81 H Pulse Oximetry 96 04/07/18 00:00 04/07/18 01:00 04/07/18 02:00 Temperature Pulse Rate 78 74 76 Respiratory Rate Blood Pressure Pulse Oximetry 04/07/18 02:07 04/07/18 03:00 04/07/18 03:27 Temperature Pulse Rate 75 76 Respiratory Rate 16 16 Blood Pressure 133/72 Pulse Oximetry 96 04/07/18 04:00 04/07/18 05:00 04/07/18 06:00 Temperature Pulse Rate 73 78 82 Respiratory Rate Blood Pressure Pulse Oximetry 04/07/18 07:00 04/07/18 08:00 04/07/18 09:00 Temperature 98.0 F Pulse Rate 78 78 74 Respiratory Rate 18 Blood Pressure 116/66 Pulse Oximetry 95 04/07/18 10:00 04/07/18 11:00 04/07/18 12:00 Temperature 98.2 F Pulse Rate 74 75 74 Respiratory Rate 18 Blood Pressure 124/68 Pulse Oximetry 96 04/07/18 13:00 04/07/18 14:00 04/07/18 15:00 Temperature 98.4 F Pulse Rate 76 74 74 Respiratory Rate 18 Blood Pressure 118/68 Pulse Oximetry 04/07/18 16:00 Temperature Pulse Rate 73 Respiratory Rate Blood Pressure Pulse Oximetry Intake & Output 04/06/18 04/07/18 04/07/18 18:59 06:59 18:59 Intake Total 480 / 480 480 / 480 Output Total 1200 / 1200 1400 / 1400 Balance -720 / -720 -920 / -920 Weight 63 kg Intake: Oral 480 / 480 480 / 480 Output: Urine 1200 / 1200 1400 / 1400 Other: Date of Last Bowel Movement 04/06/18 04/06/18 04/06/18 # Bowel Movements 1 - Constitutional no acute distress - Routine HEENT Exam Head: Present: normocephalic, atraumatic Eye: Present: EOMI ENT: Present: mucous membranes moist - Routine Neck Exam Present: supple - Routine Respiratory Exam Present: crackles Comments: few scattered bibasilar crackles - Routine Cardiovascular Exam Present: RRR, S1, S2 - Routine Abdominal Exam Present: soft, normoactive bowel sounds - Routine Extremities Exam Present: pulses intact - Routine Skin Exam Present: intact - Routine Neurological Exam Present: alert, oriented X3 - Detailed Neurological Exam: Coma Scale Verbal Response: Oriented - Routine Psychiatric Exam Present: normal affect, normal thought process Results - Labs CBC & Chem 7: 04/07/18 10:53 04/07/18 10:53 Laboratory Results - last 24 hr 04/06/18 04/06/18 04/07/18 10:59 20:49 07:59 WBC RBC Hgb Hct MCV MCH MCHC RDW Plt Count MPV Neut % (Auto) Lymph % (Auto) Dickens % (Auto) Eos % (Auto) Baso % (Auto) Neut # (Auto) Lymph # (Auto) Dickens # (Auto) Eos # (Auto) Baso # (Auto) WBC Differential Differential Comment Sodium Potassium Chloride Carbon Dioxide Anion Gap BUN Creatinine Estimated GFR POC Glucose 361 H 144 H Random Glucose Calcium Phosphorus 2.6 Magnesium 1.6 Tacrolimus 04/07/18 04/07/18 04/07/18 10:53 10:53 10:53 WBC 13.1 H RBC 3.15 L Hgb 8.8 L Hct 28.4 L MCV 90.1 MCH 28.0 MCHC 31.1 L RDW 16.6 Plt Count 989 H MPV 8.8 Neut % (Auto) 76.9 H Lymph % (Auto) 8.7 L Dickens % (Auto) 12.7 H Eos % (Auto) 1.0 Baso % (Auto) 0.7 Neut # (Auto) 10.1 H Lymph # (Auto) 1.1 Dickens # (Auto) 1.7 H Eos # (Auto) 0.1 Baso # (Auto) 0.1 WBC Differential . Differential Comment Auto diff final Sodium 139 Potassium 4.3 Chloride 102 Carbon Dioxide 25.3 Anion Gap 12 BUN 27 H Creatinine 1.05 H Estimated GFR 54 L POC Glucose Random Glucose 216 H Calcium 7.8 L D Phosphorus 2.8 Magnesium 1.4 L Tacrolimus 12.8 Microbiology 04/04/18 14:11 Blood - Line Aerobic Blood Culture - Preliminary No growth in 3 days 04/04/18 14:11 Blood - Line Anaerobic Blood Culture - Preliminary No growth in 3 days 04/04/18 14:15 Blood - Peripheral Aerobic Blood Culture - Preliminary No growth in 3 days 04/04/18 14:15 Blood - Peripheral Anaerobic Blood Culture - Preliminary No growth in 3 days - Imaging Impressions Head CT 04/07/18 00:00 CONCLUSION: 1. Cortical atrophy. 2. No acute intracranial abnormality . Assessment and Plan - Assessment (1) Fever Code(s): R50.9 - Fever, unspecified Status: Acute (2) Renal transplant recipient Code(s): Z94.0 - Kidney transplant status Status: Acute (3) DM (diabetes mellitus) Code(s): E11.9 - Type 2 diabetes mellitus without complications Status: Acute (4) Abdominal pain Code(s): R10.9 - Unspecified abdominal pain Status: Acute - Plan 57 yof with complex medical/surgical history s/p LURKT in [place] in 06/2017. Admitted with left flank pain and FUO. No obvious source of infection yet identified. TPN stopped. Peripheral IV placed. IR to pull central line in Am, as patient received lovenox this AM. Will have them culture the tip. Appreciate ID input. Kidney function improved. Blood sugars better controlled. UOP okay. Abd pain and nausea better, Headache better. Prograf level elevated (? ??). Will see what happens with level tomorrow. Dose just adjusted yesterday. Thrush being treated. On Nystatin S&S. Platelets have trended up since admit - On anagrelide. Appreciate hematology-onc input. Appreciate GI input. Leukocytosis improved. Appreciate computator input. Will start on po diet. Plan discussed with patient and the RN. Will continue to follow. (1) Fever Qualifiers: Fever type: unspecified Qualified Code(s): R50.9 - Fever, unspecified
[2018-04-07] MEDS: diazePAM 5 MG Tablet PO SCH ×2 (17:20→20:30)
[2018-04-07] MEDS: [UNRECOGNIZED DRUG - OTHER] IV.SIG SCH ×9 (20:46)
[2018-04-08] MEDS: Dextrose 5%/NaCl 0.9% Inj 1,000 ML IV.CONT SCH ×3 (08:04→14:41)
[2018-04-08] MEDS: Sod Chloride 0.9% Inj 1,000 ML IV.CONT SCH ×4 (08:04→14:42)
--- NOTE | 2018-04-08 09:04 | P.PNID ---
Subjective Remarks: 57 year old female with very complicated surgical Hx, S/P renal transplant admitted with fever. Notes reviewed Has remained afebrile Abdominal pain is chronic, but improving NO nausea this morning has not had any vomiting (+) BM States hse is having Ward removed today WBC down to 13K yesterday Colon path - chronic colitis BC have been negative CT A/P no new findings CT chest with atelectasis US BLE - non-occlusive thrombus in L, prob residual of her previous LLE DVT UA ok Antibiotics: None Lines: Ward Past Medical History: Reviewed Allergies/Adverse Reactions: Allergies metronidazole [From Flagyl] Allergy (Mild, Verified 03/27/18 18:27) Hives oxycodone Allergy (Mild, Verified 03/27/18 18:27) Redness of Skin oxytetracycline [From Terramycin] Allergy (Mild, Verified 03/27/18 18:27) Hives fentanyl Allergy (Verified 04/05/18 17:07) Edema filgrastim [From Neupogen] Allergy (Verified 04/05/18 10:48) Anaphylaxis Objective Vital Signs 04/07/18 09:00 04/07/18 10:00 04/07/18 11:00 Temperature 98.2 F Pulse Rate 74 74 75 Respiratory Rate 18 Blood Pressure 124/68 Pulse Oximetry 96 04/07/18 12:00 04/07/18 13:00 04/07/18 14:00 Temperature Pulse Rate 74 76 74 Respiratory Rate Blood Pressure Pulse Oximetry 04/07/18 15:00 04/07/18 16:00 04/07/18 17:00 Temperature 98.4 F Pulse Rate 74 73 76 Respiratory Rate 18 Blood Pressure 118/68 Pulse Oximetry 04/07/18 18:00 04/07/18 20:00 04/07/18 20:45 Temperature 98.0 F Pulse Rate 78 67 Respiratory Rate 18 4 L Blood Pressure 122/74 Pulse Oximetry 99 04/07/18 22:00 04/08/18 00:00 04/08/18 02:00 Temperature 97.9 F Pulse Rate 69 68 69 Respiratory Rate 16 Blood Pressure 131/68 Pulse Oximetry 98 04/08/18 04:00 04/08/18 05:00 04/08/18 06:00 Temperature 98.2 F Pulse Rate 72 69 Respiratory Rate 16 16 Blood Pressure 147/81 H Pulse Oximetry 98 04/08/18 07:00 Temperature Pulse Rate 72 Respiratory Rate Blood Pressure Pulse Oximetry Intake & Output 04/07/18 04/08/18 04/08/18 18:59 06:59 18:59 Intake Total 1125 / 1125 300 / 300 1999 Output Total 680 / 680 750 / 750 Balance 445 / 445 -450 / -450 1999 Weight 58.9 kg Intake: IV 100 / 100 1999 Magnesium Sulfate 1 gm/D5W 100 100 / 100 ml Premix 100 ML @ 100 mls/hr IV.SIG ONCE ONE Rx#:[id number] Sodium Chloride 23.4% Inj 11 1999 MEQ Sodium Acetate Inj 59 MEQ KCl Inj 40 MEQ Magnesium Chloride Inj 10 MEQ Calcium Chloride Inj 9 MEQ MVI-12 Inj 10 ML Folvite Inj 1 MG NovoLIN R Inj 30 UNITS In TPN Fluid 2 Liter 2,000 ML @ 65.009 mls/hr IV.SIG Q24H [facility] Rx#:[id number] Oral 1025 / 1025 300 / 300 Output: Urine 680 / 680 750 / 750 Other: Date of Last Bowel Movement 04/06/18 04/07/18 # Bowel Movements 0 2 04/04/18 14:11 Blood - Line Aerobic Blood Culture - Preliminary No growth in 3 days 04/04/18 14:11 Blood - Line Anaerobic Blood Culture - Preliminary No growth in 3 days 04/04/18 14:15 Blood - Peripheral Aerobic Blood Culture - Preliminary No growth in 3 days 04/04/18 14:15 Blood - Peripheral Anaerobic Blood Culture - Preliminary No growth in 3 days Lab - Hematology Results 04/06/18 04/07/18 10:59 10:53 WBC 16.3 H 13.1 H RBC 3.02 L 3.15 L Hgb 9.2 L 8.8 L Hct 26.5 L 28.4 L MCV 87.8 90.1 MCH 30.5 28.0 MCHC 34.7 31.1 L RDW 16.7 16.6 Plt Count 934 H 989 H MPV 8.5 8.8 Neut % (Auto) 83.9 H 76.9 H Lymph % (Auto) 2.9 L 8.7 L [place] % (Auto) 11.7 H 12.7 H Eos % (Auto) 1.2 1.0 Baso % (Auto) 0.3 0.7 Neut # (Auto) 13.7 H 10.1 H Lymph # (Auto) 0.5 L 1.1 [place] # (Auto) 1.9 H 1.7 H Eos # (Auto) 0.2 0.1 Baso # (Auto) 0.0 0.1 WBC Differential . . Differential Comment Auto diff final Auto diff final Lab - Chemistry Results 04/06/18 04/06/18 04/06/18 10:51 10:59 10:59 Sodium 132 L Potassium 4.6 Chloride 95 L Carbon Dioxide 29.4 Anion Gap 8 BUN 35 H Creatinine 1.22 H Estimated GFR 45 L POC Glucose 270 H Random Glucose 265 H Calcium 9.9 Phosphorus 2.6 Magnesium 1.6 Total Bilirubin Direct Bilirubin Indirect Bilirubin AST ALT Alkaline Phosphatase Total Protein Albumin 04/06/18 04/06/18 04/06/18 10:59 14:58 20:49 Sodium Potassium Chloride Carbon Dioxide Anion Gap BUN Creatinine Estimated GFR POC Glucose 274 H 361 H Random Glucose Calcium Phosphorus Magnesium Total Bilirubin 0.1 L Direct Bilirubin 0.1 Indirect Bilirubin 0.0 AST 12 L ALT 13 Alkaline Phosphatase 232 H Total Protein 6.5 Albumin 2.4 L 04/07/18 04/07/18 04/07/18 07:59 10:53 17:05 Sodium 139 Potassium 4.3 Chloride 102 Carbon Dioxide 25.3 Anion Gap 12 BUN 27 H Creatinine 1.05 H Estimated GFR 54 L POC Glucose 144 H 357 H Random Glucose 216 H Calcium 7.8 L D Phosphorus 2.8 Magnesium 1.4 L Total Bilirubin Direct Bilirubin Indirect Bilirubin AST ALT Alkaline Phosphatase Total Protein Albumin 04/07/18 04/07/18 17:06 20:24 Sodium Potassium Chloride Carbon Dioxide Anion Gap BUN Creatinine Estimated GFR POC Glucose 318 H 251 H Random Glucose Calcium Phosphorus Magnesium Total Bilirubin Direct Bilirubin Indirect Bilirubin AST ALT Alkaline Phosphatase Total Protein Albumin Imaging: ITS Impressions Chest X-Ray 03/27/18 19:28 CONCLUSION: No acute cardiopulmonary disease. There is no evidence of pneumonia. Renal Ultrasound 03/29/18 00:00 CONCLUSION: 1. Very mild hydronephrosis of the transplant kidney. 2. 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 Abdomen X-Ray 03/30/18 14:53 CONCLUSION: No dilated loops of bowel observed. Abdomen/Pelvis CT 04/04/18 00:00 CONCLUSION: 1. The only new findings when compared to prior CT on 03/27/2018 include distention of the stomach and mild bibasilar atelectasis. Chest CT 04/04/18 00:00 CONCLUSION: 1. Increase in subsegmental basilar atelectasis since March 27. No new effusion. Upper lungs clear. No new adenopathy. Venous Doppler Study 04/04/18 13:29 CONCLUSION: 1. Nonocclusive small volume thrombus involving the distal superficial femoral vein and peroneal vein on the left. This could relate to residual chronic thrombus from the patient's prior DVT. 2. No thrombus involving the right lower extremity. 3. Nothing to account for bilateral lower extremity swelling. Head CT 04/07/18 00:00 CONCLUSION: 1. Cortical atrophy. 2. No acute intracranial abnormality . Physical Exam: GENERAL: awake and alert, NAD SKIN: Cool and dry. No generalized rash, dry skin. HEAD: Atraumatic. Normocephalic. No temporal wasting, or tenderness. EYES: [place] conjunctiva. No petechia or hemorrhage. Pupils equal, round and reactive to light. Extraocular movements full and intact. No scleral icterus. No injection or drainage. EARS, NOSE AND THROAT: Nose without bleeding or purulent nasal discharge. Mucous membranes pink and moist. No oral lesions noted. No exudate. No oral thrush. NECK: Trachea midline. Supple and not tender, no meningeal signs CARDIOVASCULAR: Regular rate and rhythm. No murmurs, rubs or gallops heard RESPIRATORY: Clear to auscultation. Breath sounds equal bilaterally. No rales , wheezing or rhonchi ABDOMEN: Soft, flat, not distended, not tender, not guarding, no rebound. Has healed midline incisions. EXTREMITIES: No clubbing, cyanosis, or edema. No calf tenderness. Well perfused and warm. NEUROLOGICAL: Non-focal. PSYCHIATRIC: Normal affect, calm and cooperative. LINE: No evidence of infection Assessment and Plan - Plan Impression Febrile illness, non-localizing, temps better - workup no infection found Hx chronic abdominal pain, N/V, diarrhea, Dumping syndrome, worse - has had multiple exploratory laparotomy, last one December - CT A/P no abscess, no obstruction Leukocytosis, etiology? - better - not on any antimicrobial agent - so far no new infection identified - imaging negative - EBV, CMV negative - ?reactive to ongoing GI process S/P renal transplant June 2017, on Prograf Recommendation Overall better last 2 days She is not on any Abx or antifungal Follow CBC Follow temps Monitor progress Nothing new to add from ID standpoint Dr Day Santamaria available this weekend if needed
[2018-04-08] MEDS: Insulin NovoLIN Regular Correctional Sugar Inj SQ SCH ×2 (09:24→11:33)
[2018-04-08] MEDS: Dextrose 50% in Water 50 ML Vial IV.PUSH PRN (09:25)
[2018-04-08] MEDS: predniSONE 10 MG Tablet PO SCH (09:30)
[2018-04-08] MEDS: Nystatin Liq 500,000 UNIT/5 ML UDC SWISH-SWAL SCH ×4 (09:30→22:04)
[2018-04-08] MEDS: Diphenoxylate/Atropine 2.5/0.025 MG Tablet PO SCH ×3 (09:31→17:13)
[2018-04-08] MEDS: diazePAM 5 MG Tablet PO SCH ×2 (09:31→20:41)
[2018-04-08] MEDS: Lipase/Protease/Amylase 24/76/120 DR Capsule PO SCH ×3 (09:32→17:13)
[2018-04-08] MEDS: Carvedilol 12.5 MG Tablet PO SCH ×2 (09:32→20:40)
[2018-04-08] MEDS: Insulin Detemir Inj 1,000 UNIT/10 ML Vial SQ SCH ×2 (09:32→22:04)
[2018-04-08] MEDS: Potassium Phos/Sodium Phos 250 MG Tablet PO SCH ×3 (09:32→17:13)
[2018-04-08] MEDS: Heparin Central Flush 100 UNIT/ML 5 ML Vial IV.FLUSH SCH (09:32)
[2018-04-08] MEDS: Calcium Carbonate 500 MG Tablet PO SCH ×2 (09:33→20:40)
[2018-04-08] MEDS: Senna/Docusate Sodium 8.6/50 MG Tablet PO SCH ×2 (09:33→20:41)
--- NOTE | 2018-04-08 11:26 | P.PNTS ---
Subjective Interval history: Some heartburn, mild increase in abd pain and increased volume of loose stools after po intake last night. Says she would "really like to go home tomorrow". Also says that she really doesn't want the central line replaced and the TPN resumed. Physical Exam Vital signs: Vital Signs 04/07/18 12:00 04/07/18 13:00 04/07/18 14:00 Temperature Pulse Rate 74 76 74 Respiratory Rate Blood Pressure Pulse Oximetry 04/07/18 15:00 04/07/18 16:00 04/07/18 17:00 Temperature 98.4 F Pulse Rate 74 73 76 Respiratory Rate 18 Blood Pressure 118/68 Pulse Oximetry 04/07/18 18:00 04/07/18 20:00 04/07/18 20:45 Temperature 98.0 F Pulse Rate 78 67 Respiratory Rate 18 4 L Blood Pressure 122/74 Pulse Oximetry 99 04/07/18 22:00 04/08/18 00:00 04/08/18 02:00 Temperature 97.9 F Pulse Rate 69 68 69 Respiratory Rate 16 Blood Pressure 131/68 Pulse Oximetry 98 04/08/18 04:00 04/08/18 05:00 04/08/18 06:00 Temperature 98.2 F Pulse Rate 72 69 Respiratory Rate 16 16 Blood Pressure 147/81 H Pulse Oximetry 98 04/08/18 07:00 04/08/18 08:00 04/08/18 09:00 Temperature 97.9 F Pulse Rate 72 70 72 Respiratory Rate 16 Blood Pressure 106/64 Pulse Oximetry 97 04/08/18 09:53 04/08/18 10:00 04/08/18 11:00 Temperature Pulse Rate 72 72 Respiratory Rate 20 Blood Pressure Pulse Oximetry Intake & Output 04/07/18 04/08/18 04/08/18 18:59 06:59 18:59 Intake Total 1125 / 1125 300 / 300 2200 / 2200 Output Total 680 / 680 750 / 750 Balance 445 / 445 -450 / -450 0 / 2200 Weight 58.9 kg Intake: IV 100 / 100 2199 / 2200 Magnesium Sulfate 1 gm/D5W 100 100 / 100 ml Premix 100 ML @ 100 mls/hr IV.SIG ONCE ONE Rx#:[id number] Sodium Chloride 23.4% Inj 11 2199 / 2199 MEQ Sodium Acetate Inj 59 MEQ KCl Inj 40 MEQ Magnesium Chloride Inj 10 MEQ Calcium Chloride Inj 9 MEQ MVI-12 Inj 10 ML Folvite Inj 1 MG NovoLIN R Inj 30 UNITS In TPN Fluid 2 Liter 2,000 ML @ 65.009 mls/hr IV.SIG Q24H [facility] Rx#:[id number] Oral 1025 / 1025 300 / 300 Output: Urine 680 / 680 750 / 750 Other: Date of Last Bowel Movement 04/06/18 04/07/18 04/06/18 # Bowel Movements 0 2 - Constitutional no acute distress - Routine HEENT Exam Head: Present: normocephalic, atraumatic Eye: Present: EOMI - Routine Neck Exam Present: supple - Routine Respiratory Exam Present: CTA bilaterally - Routine Cardiovascular Exam Present: RRR, S1, S2 - Routine Abdominal Exam Present: soft, normoactive bowel sounds Comments: minimal lower abd pain (L>R) - Routine Extremities Exam Present: pulses intact - Routine Skin Exam Present: intact - Routine Neurological Exam Present: alert, oriented X3 - Detailed Neurological Exam: Coma Scale Verbal Response: Oriented - Routine Psychiatric Exam Present: normal affect, normal thought process Results - Labs CBC & Chem 7: 04/07/18 10:53 04/07/18 10:53 Laboratory Results - last 24 hr 04/04/18 04/05/18 04/07/18 17:57 17:07 10:53 WBC RBC Hgb Hct MCV MCH MCHC RDW Plt Count MPV Neut % (Auto) Lymph % (Auto) [place] % (Auto) Eos % (Auto) Baso % (Auto) Neut # (Auto) Lymph # (Auto) [place] # (Auto) Eos # (Auto) Baso # (Auto) WBC Differential Differential Comment Sodium 139 Potassium 4.3 Chloride 102 Carbon Dioxide 25.3 Anion Gap 12 BUN 27 H Creatinine 1.05 H Estimated GFR 54 L POC Glucose Random Glucose 216 H Calcium 7.8 L D Phosphorus 2.8 Magnesium 1.4 L Tacrolimus Immunophenotypic Anal JAK2 Mutation (PCR) 04/07/18 04/07/18 04/07/18 10:53 10:53 17:05 WBC 13.1 H RBC 3.15 L Hgb 8.8 L Hct 28.4 L MCV 90.1 MCH 28.0 MCHC 31.1 L RDW 16.6 Plt Count 989 H MPV 8.8 Neut % (Auto) 76.9 H Lymph % (Auto) 8.7 L [place] % (Auto) 12.7 H Eos % (Auto) 1.0 Baso % (Auto) 0.7 Neut # (Auto) 10.1 H Lymph # (Auto) 1.1 [place] # (Auto) 1.7 H Eos # (Auto) 0.1 Baso # (Auto) 0.1 WBC Differential . Differential Comment Auto diff final Sodium Potassium Chloride Carbon Dioxide Anion Gap BUN Creatinine Estimated GFR POC Glucose 357 H Random Glucose Calcium Phosphorus Magnesium Tacrolimus 12.8 Immunophenotypic Anal JAK2 Mutation (PCR) 04/07/18 04/07/18 04/08/18 17:06 20:24 09:11 WBC RBC Hgb Hct MCV MCH MCHC RDW Plt Count MPV Neut % (Auto) Lymph % (Auto) [place] % (Auto) Eos % (Auto) Baso % (Auto) Neut # (Auto) Lymph # (Auto) [place] # (Auto) Eos # (Auto) Baso # (Auto) WBC Differential Differential Comment Sodium Potassium Chloride Carbon Dioxide Anion Gap BUN Creatinine Estimated GFR POC Glucose 318 H 251 H 69 Random Glucose Calcium Phosphorus Magnesium Tacrolimus Immunophenotypic Anal JAK2 Mutation (PCR) 04/08/18 10:04 WBC RBC Hgb Hct MCV MCH MCHC RDW Plt Count MPV Neut % (Auto) Lymph % (Auto) [place] % (Auto) Eos % (Auto) Baso % (Auto) Neut # (Auto) Lymph # (Auto) [place] # (Auto) Eos # (Auto) Baso # (Auto) WBC Differential Differential Comment Sodium Potassium Chloride Carbon Dioxide Anion Gap BUN Creatinine Estimated GFR POC Glucose 113 H Random Glucose Calcium Phosphorus Magnesium Tacrolimus Immunophenotypic Anal JAK2 Mutation (PCR) Microbiology 04/04/18 14:11 Blood - Line Aerobic Blood Culture - Preliminary No growth in 4 days 04/04/18 14:11 Blood - Line Anaerobic Blood Culture - Preliminary No growth in 4 days 04/04/18 14:15 Blood - Peripheral Aerobic Blood Culture - Preliminary No growth in 4 days 04/04/18 14:15 Blood - Peripheral Anaerobic Blood Culture - Preliminary No growth in 4 days - Imaging Impressions Head CT 04/07/18 00:00 CONCLUSION: 1. Cortical atrophy. 2. No acute intracranial abnormality . Assessment and Plan - Assessment (1) Fever Code(s): R50.9 - Fever, unspecified Status: Acute (2) Renal transplant recipient Code(s): Z94.0 - Kidney transplant status Status: Acute (3) DM (diabetes mellitus) Code(s): E11.9 - Type 2 diabetes mellitus without complications Status: Acute (4) Abdominal pain Code(s): R10.9 - Unspecified abdominal pain Status: Acute - Plan 57 yof with complex medical/surgical history s/p [place] in [place] in 06/2017. Admitted with left flank pain and FUO. No obvious source of infection yet identified. TPN stopped. Peripheral IV placed. Central line removed by IR. Tip sent for culture. Appreciate ID input. Kidney function improved. Blood sugars better controlled. UOP okay. Abd pain and nausea better, Headache resolved. Prograf level elevated yesterday. Await today's level. Thrush being treated. On Nystatin S&S. Platelets have trended up since admit - On anagrelide. Appreciate hematology- onc input. Appreciate GI input. Leukocytosis improved, yesterday, await today's labs. 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 Will resume po diet. Plan discussed with patient and the RN. Don't think patient will do well with just po intake, without TPN supplementation, but she is insistent on trying and refusing to have the central line replaced and TPN resumed. She also states that she want sto go home tomorrow. We agreed that we would see how she does todya and then reassess tomorrow. We'll see how things go by then. Will continue to follow. (1) Fever Qualifiers: Fever type: unspecified Qualified Code(s): R50.9 - Fever, unspecified
[2018-04-08 11:50] LABS: Baso # (Auto) 0.1 th/mm3 (0.0-0.2); Baso % (Auto) 0.9 % (0.0-2.0); Eos # (Auto) 0.2 th/mm3 (0.0-0.4); Eos % (Auto) 1.8 % (0.0-4.0); Lymph % (Auto) 8.8 % (9.0-44.0); Mean Corpuscular HGB Conc 31.1 % (32.0-36.0); Mean Corpuscular Hemoglobin 27.8 pg (27.0-34.0); Mean Corpuscular Volume 89.6 fL (80.0-100.0); Mean Platelet Volume 8.1 fL (7.0-11.0); Mono # (Auto) 1.6 th/mm3 (0.0-0.9); Mono % (Auto) 13.5 % (0.0-8.0); Neut # (Auto) 8.8 th/mm3 (1.8-7.7); Platelet Count 999 th/mm3 (150-450); Red Blood Count 3.57 mil/mm3 (4.00-5.30); Red Cell Distribution Width 16.6 % (11.6-17.2); White Blood Count 11.7 th/mm3 (4.0-11.0)
[2018-04-08 12:40] LABS: Calcium 9.2 mg/dL (8.5-10.1); Carbon Dioxide 29.4 meq/L (21.0-32.0); Magnesium 1.9 mg/dL (1.5-2.5); Phosphorus 3.7 mg/dL (2.5-4.9); Potassium 5.1 meq/L (3.5-5.1)
--- NOTE | 2018-04-08 12:50 | P.PN ---
Subjective Interval history: This is a pleasant 57 y/o Female with DM II, dumping syndrome, she is on TPN, chronic diarrhea, GERD, Splenectomy gastroparesis, history of DVT on Lovenox subcu, and renal transplant. Patient was initially referred to the emergency room at [facility] by her transplant physician due to fever. found with Diarrhea, had Esophagitis [place] treated with Diflucan, Colonoscopy october 2017 benign polyps, Pancreatectomy 2010, revision of anastomosis from Liver to Intestines January 2018, Renal Transplant June 2017, Recent DVR August 2017 , developed rectal bleed 04/03 Improving Diarrhea with Lomotil, GI recommended clear liquid diet, PPI, Imodium , monitor laboratory, Creon, Imuran. continue to hold Lovenox. thrombocytosis. history of VTE on Lovenox 60 mg BID at this time on hold, Seen in her Bedroom at this time Doctor Atul in to see the patient and discuss in my presence with Doctor Gilberto Patel will perform Sigmoidoscopy tomorrow morning. 04/05: Seen by doctor Gilberto Patel today, no obvious source of infection yet identified, Working on Prograf Medication recommended to accept Anagrelide by Hematology and Oncology to reduce Leukocytosis, Hematology recommended to start again Lovenox 60 [address] they will [address] the orders, if she is unable to tolerate anticoagulation will perform ICF Status post Sigmoidoscopy evidence of a Hyperemic appearing and inflamed prior surgical anastomosis, Internal Hemorrhoids as per Nephrology Creatinine fluctuates in 1.3. EGD LA Class A esophagitis, Food residue in the gastric body, Normal duodenal Mucosa, recommended to continue PPIs. and Liquid diet, as per doctor Patel wants her Pain medicine to be handled better was asked for Palliative Care Consult we do not have Pain medicine specialist. removed Morphine IV after discuss with patient about this and she will continue by Mouth. 04/06: Seen by ID specialist today following CBC, Temperature, no infection found, Leukocytosis so far no new infection EBV, CMV negative, Hold Off antibiotics. Discussed at this time with Doctor Gilberto Patel. the patient developed Headache discussed with land reclamation specialist and Dilaudid was increased also given pseudoephedrine PRN, for short period of time, No clear Plan, but offered by Surgical team possible Stomach, Pancreas, Small intestine and Colon transplant. Plan to discontinue TPN, added Diazepam one dose and follow. 04/07: Seen in her bedroom, discussed with nurse, and with doctor Jorge awaiting for WBC count if decreasing won't need to remove the central line, stable in her bed, improving abdominal pain, continue ID specialist management. 04/08: Seen in her bedroom stable, no nausea, vomit or diarrhea, improving her headache, Port removed, TPN removed discussed with nurse Miss Louise gibbs to remove IV fluids the patient is not using them, no nausea, vomit or diarrhea. Physical Exam Vital signs: Vital Signs 04/07/18 13:00 04/07/18 14:00 04/07/18 15:00 Temperature 98.4 F Pulse Rate 76 74 74 Respiratory Rate 18 Blood Pressure 118/68 Pulse Oximetry 04/07/18 16:00 04/07/18 17:00 04/07/18 18:00 Temperature Pulse Rate 73 76 78 Respiratory Rate Blood Pressure Pulse Oximetry 04/07/18 20:00 04/07/18 20:45 04/07/18 22:00 Temperature 98.0 F Pulse Rate 67 69 Respiratory Rate 18 4 L Blood Pressure 122/74 Pulse Oximetry 99 04/08/18 00:00 04/08/18 02:00 04/08/18 04:00 Temperature 97.9 F 98.2 F Pulse Rate 68 69 72 Respiratory Rate 16 16 Blood Pressure 131/68 147/81 H Pulse Oximetry 98 98 04/08/18 05:00 04/08/18 06:00 04/08/18 07:00 Temperature Pulse Rate 69 72 Respiratory Rate 16 Blood Pressure Pulse Oximetry 04/08/18 08:00 04/08/18 09:00 04/08/18 09:53 Temperature 97.9 F Pulse Rate 70 72 Respiratory Rate 16 20 Blood Pressure 106/64 Pulse Oximetry 97 04/08/18 10:00 04/08/18 11:00 Temperature Pulse Rate 72 72 Respiratory Rate Blood Pressure Pulse Oximetry Intake & Output 04/07/18 04/08/18 04/08/18 18:59 06:59 18:59 Intake Total 1125 / 1125 300 / 300 2200 / 2200 Output Total 680 / 680 750 / 750 Balance 445 / 445 -450 / -450 2200 / 2200 Weight 58.9 kg Intake: IV 100 / 100 2200 / 2200 Magnesium Sulfate 1 gm/D5W 100 100 / 100 ml Premix 100 ML @ 100 mls/hr IV.SIG ONCE ONE Rx#:[id number] Sodium Chloride 23.4% Inj 11 2200 / 2200 MEQ Sodium Acetate Inj 59 MEQ KCl Inj 40 MEQ Magnesium Chloride Inj 10 MEQ Calcium Chloride Inj 9 MEQ MVI-12 Inj 10 ML Folvite Inj 1 MG NovoLIN R Inj 30 UNITS In TPN Fluid 2 Liter 2,000 ML @ 65.009 mls/hr IV.SIG Q24H [facility] Rx#:[id number] Oral 1025 / 1025 300 / 300 Output: Urine 680 / 680 750 / 750 Other: Date of Last Bowel Movement 04/06/18 04/07/18 04/06/18 # Bowel Movements 0 2 Narrative: GENERAL: Well-developed patient, in no apparent distress. CARDIOVASCULAR: Regular rate and rhythm without murmurs, gallops, or rubs. RESPIRATORY: Clear to auscultation. Breath sounds equal bilaterally. No wheezes , rales, or rhonchi. GASTROINTESTINAL: Abdomen soft, tender on palpation specially on left flank. MUSCULOSKELETAL: Extremities without clubbing, cyanosis, or edema. NEURO: Alert & Oriented x4 to person, place, time, situation. Moves all ext x4 Results - Labs CBC & Chem 7: 04/08/18 11:34 04/08/18 11:34 Laboratory Results - last 24 hr 04/04/18 04/05/18 04/07/18 17:57 17:07 10:53 WBC RBC Hgb Hct MCV MCH MCHC RDW Plt Count MPV Neut % (Auto) Lymph % (Auto) [place] % (Auto) Eos % (Auto) Baso % (Auto) Neut # (Auto) Lymph # (Auto) [place] # (Auto) Eos # (Auto) Baso # (Auto) WBC Differential Differential Comment Sodium Potassium Chloride Carbon Dioxide Anion Gap BUN Creatinine Estimated GFR POC Glucose Random Glucose Calcium Phosphorus Magnesium Tacrolimus 12.8 Immunophenotypic Anal JAK2 Mutation (PCR) 04/07/18 04/07/18 04/07/18 17:05 17:06 20:24 WBC RBC Hgb Hct MCV MCH MCHC RDW Plt Count MPV Neut % (Auto) Lymph % (Auto) [place] % (Auto) Eos % (Auto) Baso % (Auto) Neut # (Auto) Lymph # (Auto) [place] # (Auto) Eos # (Auto) Baso # (Auto) WBC Differential Differential Comment Sodium Potassium Chloride Carbon Dioxide Anion Gap BUN Creatinine Estimated GFR POC Glucose 357 H 318 H 251 H Random Glucose Calcium Phosphorus Magnesium Tacrolimus Immunophenotypic Anal JAK2 Mutation (PCR) 04/08/18 04/08/18 04/08/18 09:11 10:04 11:33 WBC RBC Hgb Hct MCV MCH MCHC RDW Plt Count MPV Neut % (Auto) Lymph % (Auto) [place] % (Auto) Eos % (Auto) Baso % (Auto) Neut # (Auto) Lymph # (Auto) [place] # (Auto) Eos # (Auto) Baso # (Auto) WBC Differential Differential Comment Sodium Potassium Chloride Carbon Dioxide Anion Gap BUN Creatinine Estimated GFR POC Glucose 69 113 H 103 Random Glucose Calcium Phosphorus Magnesium Tacrolimus Immunophenotypic Anal JAK2 Mutation (PCR) 04/08/18 04/08/18 11:34 11:34 WBC 11.7 H RBC 3.57 L Hgb 10.0 L Hct 32.0 L MCV 89.6 MCH 27.8 MCHC 31.1 L RDW 16.6 Plt Count 999 H MPV 8.1 Neut % (Auto) 75.0 H Lymph % (Auto) 8.8 L [place] % (Auto) 13.5 H Eos % (Auto) 1.8 Baso % (Auto) 0.9 Neut # (Auto) 8.8 H Lymph # (Auto) 1.0 [place] # (Auto) 1.6 H Eos # (Auto) 0.2 Baso # (Auto) 0.1 WBC Differential . Differential Comment Auto diff final Sodium 135 L Potassium 5.1 D Chloride 96 L Carbon Dioxide 29.4 Anion Gap 10 BUN 30 H Creatinine 1.29 H Estimated GFR 43 L POC Glucose Random Glucose 103 D Calcium 9.2 D Phosphorus 3.7 Magnesium 1.9 Tacrolimus Immunophenotypic Anal JAK2 Mutation (PCR) Microbiology 04/04/18 14:11 Blood - Line Aerobic Blood Culture - Preliminary No growth in 4 days 04/04/18 14:11 Blood - Line Anaerobic Blood Culture - Preliminary No growth in 4 days 04/04/18 14:15 Blood - Peripheral Aerobic Blood Culture - Preliminary No growth in 4 days 04/04/18 14:15 Blood - Peripheral Anaerobic Blood Culture - Preliminary No growth in 4 days - Imaging Impressions Head CT 04/07/18 00:00 CONCLUSION: 1. Cortical atrophy. 2. No acute intracranial abnormality . Assessment and Plan - Assessment (1) SIRS (systemic inflammatory response syndrome) Code(s): R65.10 - Systemic inflammatory response syndrome (SIRS) of non- infectious origin without acute organ dysfunction Status: Acute (2) H/O kidney transplant Code(s): Z94.0 - Kidney transplant status Status: Acute (3) Abdominal pain Code(s): R10.9 - Unspecified abdominal pain Status: Acute (4) On total parenteral nutrition (TPN) Code(s): Z78.9 - Other specified health status Status: Acute (5) Renal insufficiency Code(s): N28.9 - Disorder of kidney and ureter, unspecified Status: Acute (6) DM (diabetes mellitus) Code(s): E11.9 - Type 2 diabetes mellitus without complications Status: Acute - Plan Fever, SIRS- fever now has resolved. Chest x-ray was within normal limits, urinalysis showed no infection Blood cultures thus far negative Seen by ID specialist today following CBC, Temperature, no infection found, Leukocytosis so far no new infection EBV, CMV negative, Hold Off antibiotics, Improving Leukocytosis. today 11.7 from 13.1 rectal bleed will monitor H/H- GI consulted. 04/05: Status post Sigmoidoscopy evidence of a Hyperemic appearing and inflamed prior surgical anastomosis, Internal Hemorrhoids, Status post EGD LA Class A esophagitis, Food residue in the gastric body, Normal duodenal Mucosa, recommended to continue PPIs. and Liquid diet. H/o renal transplant creatinine worsened today to 1.29 Transplanted in June 2017 at [facility] [place], Dr. Louis Continue Prograf, adjusted by nephrology 04/06. Discussed at this time with Doctor Gilberto Patel. the patient developed Headache discussed with land reclamation specialist and Dilaudid was increased also given pseudoephedrine PRN, for short period of time, No clear Plan, but offered by Surgical team possible Stomach, Pancreas, Small intestine and Colon transplant. Plan to discontinue TPN, added Diazepam, increased Dilaudid improving pain, she did not accepted the use of Cymbalta to improve pain. Thrombocytosis reactive. 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 continue with left flank pain, status post Sigmoidoscopy and EGD read above. asked for CT abdomen and Pelvis Stomach distention and basal atelectasis on both lungs. as per doctor Jorge discussed with the patient about the possible need for Organ transplant. today improving condition. Type 2 diabetes- Uncontrolled increased Levemir to 10 units BID. initially started on insulin drip which was later on stopped; - now on regular insulin with TPN- along with accu-check with SSI. oral thrush; continue on Nystatin S and Swallow. headache improving with Diazepam Removed IV fluids Removed Port removed TPN DVT Prophylaxis Lovenox Code Status: Full code. Discussed Condition With: Patient and nurse Miss Gil Discharge Planning: Expected by tomorrow.
[2018-04-08 16:48] LABS: Bacteria,Urine Rare /hpf; Bilirubin,Urine Negative (Negative); Clarity,Urine Hazy (Clear); Color,Urine Yellow (Yellw/Straw); Glucose,Urine (UA) 50 mg/dL (Negative); Leukocyte Esterase,Urine Moderate (Negative); Nitrite,Urine Negative (Negative); Specific Gravity,Urine 1.009 (1.002-1.035); Squamous Epithelial Cell,Urine 1 /hpf (0-5)
--- NOTE | 2018-04-08 17:07 | P.PNNP ---
Subjective Interval history: Patient about same Physical Exam Vital signs: Vital Signs 04/07/18 18:00 04/07/18 20:00 04/07/18 20:45 Temperature 98.0 F Pulse Rate 78 67 Respiratory Rate 18 4 L Blood Pressure 122/74 Pulse Oximetry 99 04/07/18 22:00 04/08/18 00:00 04/08/18 02:00 Temperature 97.9 F Pulse Rate 69 68 69 Respiratory Rate 16 Blood Pressure 131/68 Pulse Oximetry 98 04/08/18 04:00 04/08/18 05:00 04/08/18 06:00 Temperature 98.2 F Pulse Rate 72 69 Respiratory Rate 16 16 Blood Pressure 147/81 H Pulse Oximetry 98 04/08/18 07:00 04/08/18 08:00 04/08/18 09:00 Temperature 97.9 F Pulse Rate 72 70 72 Respiratory Rate 16 Blood Pressure 106/64 Pulse Oximetry 97 04/08/18 09:53 04/08/18 10:00 04/08/18 11:00 Temperature Pulse Rate 72 72 Respiratory Rate 20 Blood Pressure Pulse Oximetry 04/08/18 12:00 04/08/18 13:00 04/08/18 14:00 Temperature 98.3 F Pulse Rate 72 70 78 Respiratory Rate 18 Blood Pressure 112/65 Pulse Oximetry 98 04/08/18 14:40 04/08/18 14:41 Temperature Pulse Rate 74 Respiratory Rate 20 Blood Pressure Pulse Oximetry Intake & Output 04/07/18 04/08/18 04/08/18 18:59 06:59 18:59 Intake Total 1125 / 1125 300 / 300 2200 / 2200 Output Total 680 / 680 750 / 750 Balance 445 / 445 -450 / -450 2200 / 2200 Weight 58.9 kg Intake: IV 100 / 100 2200 / 2200 Magnesium Sulfate 1 gm/D5W 100 100 / 100 ml Premix 100 ML @ 100 mls/hr IV.SIG ONCE ONE Rx#:[id number] Sodium Chloride 23.4% Inj 11 2200 / 2200 MEQ Sodium Acetate Inj 59 MEQ KCl Inj 40 MEQ Magnesium Chloride Inj 10 MEQ Calcium Chloride Inj 9 MEQ MVI-12 Inj 10 ML Folvite Inj 1 MG NovoLIN R Inj 30 UNITS In TPN Fluid 2 Liter 2,000 ML @ 65.009 mls/hr IV.SIG Q24H [facility] Rx#:[id number] Oral 1025 / 1025 300 / 300 Output: Urine 680 / 680 750 / 750 Other: Date of Last Bowel Movement 04/06/18 04/07/18 04/06/18 # Bowel Movements 0 2 Narrative: GENERAL: Well-developed patient, in no apparent distress. CARDIOVASCULAR: Regular rate and rhythm without murmurs, gallops, or rubs. RESPIRATORY: Clear to auscultation. Breath sounds equal bilaterally. No wheezes , rales, or rhonchi. GASTROINTESTINAL: Abdomen soft, tender on palpation specially on left flank. MUSCULOSKELETAL: Extremities without clubbing, cyanosis, or edema. NEURO: Alert & Oriented x4 to person, place, time, situation. Moves all ext x4 Assessment and Plan - Assessment (1) Acute renal failure Code(s): N17.9 - Acute kidney failure, unspecified Status: Acute (2) Fever Code(s): R50.9 - Fever, unspecified Status: Acute Qualifiers: Fever type: unspecified Qualified Code(s): R50.9 - Fever, unspecified (3) Renal transplant recipient Code(s): Z94.0 - Kidney transplant status Status: Acute (4) On total parenteral nutrition (TPN) Code(s): Z78.9 - Other specified health status Status: Acute (5) DM (diabetes mellitus) Code(s): E11.9 - Type 2 diabetes mellitus without complications Status: Acute (6) Abdominal pain Code(s): R10.9 - Unspecified abdominal pain Status: Acute - Plan Patient has acute renal failure with baseline creatinine around 0.9 currently at 1.2, Phosphorus and magnesium were replaced Doing better creatinine fluctuates 1.2 Thrush nystatin added Thrombocytosis platelets are climbing up hematology following Leukocytosis Tacrolimus dose being adjusted by Dr. Patel sigmoidoscopy done biopsy site of anastomosis Blood glucose fluctuate Monitor tacrolimus level pending Follow BMP Avoid nephrotoxins
[2018-04-08] MEDS: Insulin NovoLOG Aspart Correctional Sugar Inj SQ SCH (18:00)
--- NOTE | 2018-04-08 18:45 | P.DIET ---
Nutritional Evaluation Type of nutrition evaluation: follow-up Nutrition consult regarding: TPN/PPN, Diet Evaluation Nutrition screening: [facility] (03/28/18 [facility] TPN/PPN h/o TPN use at home) Screening comments: 04/06/18 [facility]: weaning off TPN per GI, resume PO, review kcal requirements, rec for PO etc 04/02 [facility]: Pt back on diet, please assist with TPN adjustments Subjective Subjective Comments: 04/[address] Patel for Calorie Count to start 04/08 when diet is advanced. Pt and RN Louise informed Calorie Count has started Brought forward from previous note:Pt reports she is drinking the Glucerna Shakes and would like a different flavor. Pt provided w/Nutrition Education for Gastroparesis and CHO-counting, small meals/feedings daily. Discussed pt's assessed needs for kcals and protein and encouraged her to track/journal her po intake daily to ensure she is meeting her assessed needs. Brought forward from RD note on 03/30: Pt says she eats very little at home- usually a slice of toast and a protein shake daily. Pt says meats and vegetables "go right through me". Pt declines Beneprotein packets and says she has an aversion to adding powder to drinks. Pt is receptive to drinking Glucerna Shakes and says she has had these in the past. Pt's home TPN runs for 12-hours daily so she can "be up moving around". Objective - Diagnosis Fever, Renal Transplant - Objective [place] body weight: 61.4 kg % IBW: 91 Body Weight Used for Calculations: Actual (55.9kg) Energy Needs - Lower Range (kCal/kg): 30 Energy Needs - Upper Range (kCal/kg): 35 Lower Limit kCal/kg (kCals): 1,677 Upper Limit kCal/kg (kCals): 1,957 Lower Limit Protein Factor (Grams per Kg): 0.8 Upper Limit Protein Factor (Grams per Kg): 1.0 Lower Protein Needs (Protein): 45 Upper Protein Needs (Protein): 56 Fluid Factor (ml/kg): 30 Estimated Fluid Needs (ml): 1,677 Dietitian Reviewed in Medical Record: Current diet, Curent medications, Intake & Output, Labs, Medical history, TPN/PPN Diet Order: 1800ADA Oral Diet Intake Amount: Poor <50% Objective Comments: PMH: DM, Dumping Syndrome, Gastroparesis related to adhesions and stenosis of the bowel-on TPN at home, GERD, chronic diarrhea, h/o bilateral nephrectomy and Right Kidney transplant 06/2017 ; h/o splenectomy, colectomy, oophrectomy, pancreatectomy, liver function failure; intestinal surgery 01/20/18-pt has 260cm of small bowel w/No Colon Feeding - Current PO Supplement Current Supplement: Glucerna Shake Current Frequency of Supplement: Three times a day Current kCals Provided by Supplement: 220 Current Protein Provided by Supplement: 10 Assessment Assessment: Verbal request by phone from Dr Patel for a Calorie Count to be started 04/08 when diet is advanced: 04/08 through 04/10 w/Nutrition Recs to follow 04/10. Brought forth from previous note: Pt is at high nutrition risk r/t medical history and need for TPN. TPN has been discontinued per GI. Rec diet as 1800ADA Soft w/Glucerna Shakes between meals/feedings. Pt provided w/Nutrition Education for Gastroparesis, DM and CHO-Counting, small meals/feedings daily. Discussed pt's assessed nutritional needs daily. Pt encouraged to track/journal her po intake to ensure she is meeting her assessed needs. Pt receptive to all education provided. Pt's questions answered to her satisfaction. RD contact info provided for additional questions as needed. Continue Glucerna Shakes TID w /different flavor. Labs/electrolytes reviewed. Wt changes noted. Recommendations: Verbal request by phone from Dr Patel for a Calorie Count to be started 04/08 when diet is advanced: 04/08 through 04/10 w/Nutrition Recs to follow 04/10. Brought forward from previous note: 1. TPN has been discontinued per GI 2. 1800ADA Soft w/Glucerna Shakes between meals/feedings 3. Pt provided w/Nutrition Education for Gastroparesis, DM and CHO-Counting, small meals/feedings daily 4. Encouraged pt to track/journal her po intake to ensure she is meeting her assessed needs 5. Pt's questions answered to her satisfaction 6. RD contact info provided for additional questions as needed 7. Continue Glucerna Shakes TID w/different flavor Dietitian to Monitor: Lab values, Electrolytes, Renal labs, Glucose level, Supplement acceptance, Intake & Output, Diet tolerance, Weight change, PO Intake , Diet advancement, Medical course
[2018-04-09] MEDS: Insulin NovoLOG Aspart Correctional Sugar Inj SQ SCH ×4 (02:11→20:26)
[2018-04-09] MEDS: Dextrose 50% in Water 50 ML Vial IV.PUSH PRN (05:06)
--- NOTE | 2018-04-09 08:09 | P.PN ---
Subjective Interval history: Pt seen and examined. Reports chronic abdominal pain and diarrhea but overall reports she is feeling better and would hopefully like to go home today. She endorses dysuria since yesterday as well as urinary hesitancy, frequency, and decreased urine production. Reports she has had multiple UTIs in the past 9 months with all of her hospitalizations. Complains of some suprapubic tenderness. Denies CP or SOB. Also had an episode of hypoglycemia overnight. She states she got up to use the restroom and didn't feel right. She was dizzy and diaphoretic. She called in the nurse who checked her blood sugar and it was in the 20s. The patient states she was given PO and D50 with improvement. She states she did not eat dinner last night and was off of TPN. Her appetite is better this morning and she ate her breakfast. She has been insulin dependent since 2013 and at home understands how to adjust her insulin if her appetite is down or she doesn't have as much PO intake. Physical Exam Vital signs: Vital Signs 04/08/18 08:00 04/08/18 09:00 04/08/18 09:53 Temperature 97.9 F Pulse Rate 70 72 Respiratory Rate 16 20 Blood Pressure 106/64 Pulse Oximetry 97 04/08/18 10:00 04/08/18 11:00 04/08/18 12:00 Temperature 98.3 F Pulse Rate 72 72 72 Respiratory Rate 18 Blood Pressure 112/65 Pulse Oximetry 98 04/08/18 13:00 04/08/18 14:00 04/08/18 14:40 Temperature Pulse Rate 70 78 74 Respiratory Rate Blood Pressure Pulse Oximetry 04/08/18 14:41 04/08/18 16:00 04/08/18 17:00 Temperature 97.8 F Pulse Rate 78 72 Respiratory Rate 20 16 Blood Pressure 121/68 Pulse Oximetry 96 04/08/18 17:54 04/08/18 19:00 04/08/18 20:00 Temperature 98.5 F Pulse Rate 78 83 76 Respiratory Rate 16 Blood Pressure 104/63 Pulse Oximetry 96 04/08/18 21:00 04/08/18 22:00 04/08/18 23:00 Temperature Pulse Rate 70 72 70 Respiratory Rate Blood Pressure Pulse Oximetry 04/09/18 00:00 04/09/18 01:00 04/09/18 02:00 Temperature 98.3 F Pulse Rate 70 74 74 Respiratory Rate 16 Blood Pressure 132/69 Pulse Oximetry 96 04/09/18 03:00 04/09/18 04:00 04/09/18 05:00 Temperature 97.9 F Pulse Rate 75 78 72 Respiratory Rate 16 Blood Pressure 114/65 Pulse Oximetry 96 04/09/18 06:00 Temperature Pulse Rate 70 Respiratory Rate Blood Pressure Pulse Oximetry Intake & Output 04/08/18 04/09/18 04/09/18 18:59 06:59 18:59 Intake Total 3160 / 3160 320 / 320 Output Total 875 / 875 100 / 100 Balance 2285 / 2285 220 / 220 Weight 56 kg Intake: IV 2200 / 2200 Sodium Chloride 23.4% Inj 11 2200 / 2200 MEQ Sodium Acetate Inj 59 MEQ KCl Inj 40 MEQ Magnesium Chloride Inj 10 MEQ Calcium Chloride Inj 9 MEQ MVI-12 Inj 10 ML Folvite Inj 1 MG NovoLIN R Inj 30 UNITS In TPN Fluid 2 Liter 2,000 ML @ 65.009 mls/hr IV.SIG Q24H RONALD Rx#:[id number] Oral 960 / 960 320 / 320 Output: Urine 875 / 875 100 / 100 Other: Date of Last Bowel Movement 04/06/18 04/08/18 Narrative: GENERAL: WN, WD pleasant female resting in bed in [facility]. SKIN: Warm and dry. HEENT: AT/NC. Pupils equal and round. MMM. NECK: Supple no tender LAD or JVD. HEART: RRR no m/r/g. LUNGS: CTAB without wheezes or crackles. ABDOMEN: +BS, soft, ND. +Suprapubic TTP. EXTREMITIES: No LE edema. Calves supple without tenderness. NEURO: Awake and alert. Results - Labs CBC & Chem 7: 04/08/18 11:34 04/08/18 11:34 Laboratory Results - last 24 hr 04/05/18 04/08/18 04/08/18 17:07 09:11 10:04 WBC RBC Hgb Hct MCV MCH MCHC RDW Plt Count MPV Neut % (Auto) Lymph % (Auto) Frio % (Auto) Eos % (Auto) Baso % (Auto) Neut # (Auto) Lymph # (Auto) Frio # (Auto) Eos # (Auto) Baso # (Auto) WBC Differential Differential Comment Sodium Potassium Chloride Carbon Dioxide Anion Gap BUN Creatinine Estimated GFR POC Glucose 69 113 H Random Glucose Calcium Phosphorus Magnesium Urine Color Urine Clarity Urine pH Ur Specific [place] Urine Protein Urine Glucose (UA) Urine Ketones Urine Occult Blood Urine Nitrate Urine Bilirubin Urine Urobilinogen Ur Leukocyte Esterase Urine WBC Ur Squamous Epith Cells Urine Bacteria Urine Yeast Micro UA Comment Ur Microscopic Review Urine Culture Comments Tacrolimus Immunophenotypic Anal 04/08/18 04/08/18 04/08/18 11:33 11:34 11:34 WBC 11.7 H RBC 3.57 L Hgb 10.0 L Hct 32.0 L MCV 89.6 MCH 27.8 MCHC 31.1 L RDW 16.6 Plt Count 999 H MPV 8.1 Neut % (Auto) 75.0 H Lymph % (Auto) 8.8 L Frio % (Auto) 13.5 H Eos % (Auto) 1.8 Baso % (Auto) 0.9 Neut # (Auto) 8.8 H Lymph # (Auto) 1.0 Frio # (Auto) 1.6 H Eos # (Auto) 0.2 Baso # (Auto) 0.1 WBC Differential . Differential Comment Auto diff final Sodium 135 L Potassium 5.1 D Chloride 96 L Carbon Dioxide 29.4 Anion Gap 10 BUN 30 H Creatinine 1.29 H Estimated GFR 43 L POC Glucose 103 Random Glucose 103 D Calcium 9.2 D Phosphorus 3.7 Magnesium 1.9 Urine Color Urine Clarity Urine pH Ur Specific [place] Urine Protein Urine Glucose (UA) Urine Ketones Urine Occult Blood Urine Nitrate Urine Bilirubin Urine Urobilinogen Ur Leukocyte Esterase Urine WBC Ur Squamous Epith Cells Urine Bacteria Urine Yeast Micro UA Comment Ur Microscopic Review Urine Culture Comments Tacrolimus Immunophenotypic Anal 04/08/18 04/08/18 04/08/18 11:34 15:30 16:27 WBC RBC Hgb Hct MCV MCH MCHC RDW Plt Count MPV Neut % (Auto) Lymph % (Auto) Frio % (Auto) Eos % (Auto) Baso % (Auto) Neut # (Auto) Lymph # (Auto) Frio # (Auto) Eos # (Auto) Baso # (Auto) WBC Differential Differential Comment Sodium Potassium Chloride Carbon Dioxide Anion Gap BUN Creatinine Estimated GFR POC Glucose 406 H Random Glucose Calcium Phosphorus Magnesium Urine Color Yellow Urine Clarity Hazy H Urine pH 7.0 Ur Specific [place] 1.009 Urine Protein Negative Urine Glucose (UA) 50 Urine Ketones Negative Urine Occult Blood Negative Urine Nitrate Negative Urine Bilirubin Negative Urine Urobilinogen Less than 2 Ur Leukocyte Esterase Moderate H Urine WBC 13 H Ur Squamous Epith Cells 1 Urine Bacteria Rare H Urine Yeast Few H Micro UA Comment Culture indicated Ur Microscopic Review Not Reportable Urine Culture Comments Culture indicated Tacrolimus 9.2 Immunophenotypic Anal 04/08/18 04/09/18 04/09/18 21:50 01:33 04:54 WBC RBC Hgb Hct MCV MCH MCHC RDW Plt Count MPV Neut % (Auto) Lymph % (Auto) Frio % (Auto) Eos % (Auto) Baso % (Auto) Neut # (Auto) Lymph # (Auto) Frio # (Auto) Eos # (Auto) Baso # (Auto) WBC Differential Differential Comment Sodium Potassium Chloride Carbon Dioxide Anion Gap BUN Creatinine Estimated GFR POC Glucose 303 H 301 H 28 L* Random Glucose Calcium Phosphorus Magnesium Urine Color Urine Clarity Urine pH Ur Specific [place] Urine Protein Urine Glucose (UA) Urine Ketones Urine Occult Blood Urine Nitrate Urine Bilirubin Urine Urobilinogen Ur Leukocyte Esterase Urine WBC Ur Squamous Epith Cells Urine Bacteria Urine Yeast Micro UA Comment Ur Microscopic Review Urine Culture Comments Tacrolimus Immunophenotypic Anal 04/09/18 04/09/18 04:57 05:10 WBC RBC Hgb Hct MCV MCH MCHC RDW Plt Count MPV Neut % (Auto) Lymph % (Auto) Frio % (Auto) Eos % (Auto) Baso % (Auto) Neut # (Auto) Lymph # (Auto) Frio # (Auto) Eos # (Auto) Baso # (Auto) WBC Differential Differential Comment Sodium Potassium Chloride Carbon Dioxide Anion Gap BUN Creatinine Estimated GFR POC Glucose 26 L* 212 H Random Glucose Calcium Phosphorus Magnesium Urine Color Urine Clarity Urine pH Ur Specific [place] Urine Protein Urine Glucose (UA) Urine Ketones Urine Occult Blood Urine Nitrate Urine Bilirubin Urine Urobilinogen Ur Leukocyte Esterase Urine WBC Ur Squamous Epith Cells Urine Bacteria Urine Yeast Micro UA Comment Ur Microscopic Review Urine Culture Comments Tacrolimus Immunophenotypic Anal Microbiology 04/04/18 14:11 Blood - Line Aerobic Blood Culture - Preliminary No growth in 4 days 04/04/18 14:11 Blood - Line Anaerobic Blood Culture - Preliminary No growth in 4 days 04/04/18 14:15 Blood - Peripheral Aerobic Blood Culture - Preliminary No growth in 4 days 04/04/18 14:15 Blood - Peripheral Anaerobic Blood Culture - Preliminary No growth in 4 days Assessment and Plan - Assessment (1) SIRS (systemic inflammatory response syndrome) Code(s): R65.10 - Systemic inflammatory response syndrome (SIRS) of non- infectious origin without acute organ dysfunction Status: Acute (2) H/O kidney transplant Code(s): Z94.0 - Kidney transplant status Status: Acute (3) Abdominal pain Code(s): R10.9 - Unspecified abdominal pain Status: Acute (4) On total parenteral nutrition (TPN) Code(s): Z78.9 - Other specified health status Status: Acute (5) Renal insufficiency Code(s): N28.9 - Disorder of kidney and ureter, unspecified Status: Acute (6) DM (diabetes mellitus) Code(s): E11.9 - Type 2 diabetes mellitus without complications Status: Acute - Plan 57 YOF with history of DM, dumping syndrome on TPN, chronic diarrhea, GERD, h/o splenectomy, gastroparesis, h/o DVT on SQ Lovenox, and h/o renal transplant 2017 admitted on 03/27 for evaluation of fever as recommended by her transplant surgeon in [place], [place]. 1. Fever -resolved - Temps better and no initial infection found on workup - CXR and U/A unremarkable on admission - BC no growth to date - EBV, CMV, BK virus negative - Leukocytosis improving, possibly reactive to ongoing GI process? - ID consulted but nothing more to add at this point, recommended monitoring clinically 2. UTI - Patient symptomatic with dysuria, hesitancy, urinary frequency, and suprapubic tenderness - U/A done yesterday with + LE - Cultures pending - Start tx with Bactrim, acceptable with her GFR 3. LIBBY - Baseline creatinine around 0.9 - Currently at 1.2 - s/p renal transplant June 2017 - Nephrology following 4. Renal transplant recipient - s/p LURKT June 2017 - Transplant surgeon following - Nephrology following - Prograf adjusted and levels being monitored 5. Thrombocytosis - Hematology following - Pt reportedly worked up at [facility] and was found to be reactive - History of VTE - Peripheral smear shows moderate normochromic normocytic anemia and thrombocytopenia - Awaiting results of CALR, MPL - JAK2 mutation negative - Started on anagrelide this admission 6. Chronic abdominal pain - s/p multiple bowel resections and prior surgeries as well as known history of gastroparesis - CT A/P 03/27 showing: Status post cholecystectomy with prominent intrahepatic pneumobilia. Numerous subcentimeter hypodensities lesions in both lobes of the liver, most prominently in the right lobe. Although nonspecific, cannot exclude hepatic abscesses in the appropriate clinical setting. Comparisons with prior CT examinations would be beneficial to determine chronicity. 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 Mild hydronephrosis of the transplant kidney without perirenal fluid collections or radiopaque calculi. Status post near total colectomy with multiple suture lines in the left upper quadrant. Several loops of small bowel in the left upper quadrant are marginally dilated without definitive evidence for bowel obstruction - Repeat 04/04 with same findings as well as new stomach distention and mild bibasilar atelectasis - GI consulted and patient underwent EGD and sigmoidoscopy 04/05 showing esophagitis, retained gastric fluids and food residue in the stomach, hyperemic and inflamed prior surgical anastomosis, internal hemorrhoids - Biopsy of sigmoid revealed moderately active chronic colitis with nonspecific features - Continue ReglanDonovan Lomotil - Logistics Analyst following, TPN discontinued, recommended PO diet 7. Type II DM - Sugars are very labile and pt with hypoglycemia this morning with Accucheck 28 , did not eat dinner yesterday evening and TPN was stopped - Decrease PM dose of Levemir to 5 units, continue 10 units in the morning - Hold insulin if patient not eating - Continue SSI per protocol - Logistics Analyst following 8. Oral thrush - Continue Nystatin 9. Chronic pain - Palliative care following - Dilaudid PRN - Sudafed PRN headache - CT head negative when patient complained of headache 10. HLD - Continue home statin 11. History of DVT - Doppler U/S 04/04 showed nonocclusive small-volume thrombus involving the distal superficial femoral vein and peroneal vein on the left, possibly residual from known DVT - Lovenox increased to home therapeutic dose DVT Prophylaxis: Lovenox Code Status: FULL Discussed Condition With: Patient Discharge Planning: When cleared by transplant surgeon
--- NOTE | 2018-04-09 08:42 | P.PNONC ---
Subjective Interval history: Afebrile. Patient denies any further bleeding. Patient reports her blood glucose last night fell to 27. She became symptomatic with diaphoresis and notified nursing staff. Last night was her first night off of TPN. States she wants to go home today. Objective Vital Signs/Intake & Output: Vital Signs 04/08/18 09:00 04/08/18 09:53 04/08/18 10:00 Temperature Pulse Rate 72 72 Respiratory Rate 20 Blood Pressure Pulse Oximetry 04/08/18 11:00 04/08/18 12:00 04/08/18 13:00 Temperature 98.3 F Pulse Rate 72 72 70 Respiratory Rate 18 Blood Pressure 112/65 Pulse Oximetry 98 04/08/18 14:00 04/08/18 14:40 04/08/18 14:41 Temperature Pulse Rate 78 74 Respiratory Rate 20 Blood Pressure Pulse Oximetry 04/08/18 16:00 04/08/18 17:00 04/08/18 17:54 Temperature 97.8 F Pulse Rate 78 72 78 Respiratory Rate 16 Blood Pressure 121/68 Pulse Oximetry 96 04/08/18 19:00 04/08/18 20:00 04/08/18 21:00 Temperature 98.5 F Pulse Rate 83 76 70 Respiratory Rate 16 Blood Pressure 104/63 Pulse Oximetry 96 04/08/18 22:00 04/08/18 23:00 04/09/18 00:00 Temperature 98.3 F Pulse Rate 72 70 70 Respiratory Rate 16 Blood Pressure 132/69 Pulse Oximetry 96 04/09/18 01:00 04/09/18 02:00 04/09/18 03:00 Temperature Pulse Rate 74 74 75 Respiratory Rate Blood Pressure Pulse Oximetry 04/09/18 04:00 04/09/18 05:00 04/09/18 06:00 Temperature 97.9 F Pulse Rate 78 72 70 Respiratory Rate 16 Blood Pressure 114/65 Pulse Oximetry 96 Intake & Output 04/08/18 04/09/18 04/09/18 18:59 06:59 18:59 Intake Total 3160 / 3160 320 / 320 Output Total 875 / 875 100 / 100 Balance 2285 / 2285 220 / 220 Weight 56 kg Intake: IV 2200 / 2200 Sodium Chloride 23.4% Inj 11 2200 / 2200 MEQ Sodium Acetate Inj 59 MEQ KCl Inj 40 MEQ Magnesium Chloride Inj 10 MEQ Calcium Chloride Inj 9 MEQ MVI-12 Inj 10 ML Folvite Inj 1 MG NovoLIN R Inj 30 UNITS In TPN Fluid 2 Liter 2,000 ML @ 65.009 mls/hr IV.SIG Q24H [facility] Rx#:[id number] Oral 960 / 960 320 / 320 Output: Urine 875 / 875 100 / 100 Other: Date of Last Bowel Movement 04/06/18 04/08/18 Result Diagrams: 04/09/18 10:16 04/09/18 10:16 Laboratory Results: Laboratory Results - last 24 hr 04/08/18 04/08/18 04/08/18 09:11 10:04 11:33 WBC RBC Hgb Hct MCV MCH MCHC RDW Plt Count MPV Neut % (Auto) Lymph % (Auto) [place] % (Auto) Eos % (Auto) Baso % (Auto) Neut # (Auto) Lymph # (Auto) [place] # (Auto) Eos # (Auto) Baso # (Auto) WBC Differential Differential Comment Sodium Potassium Chloride Carbon Dioxide Anion Gap BUN Creatinine Estimated GFR POC Glucose 69 113 H 103 Random Glucose Calcium Phosphorus Magnesium Urine Color Urine Clarity Urine pH Ur Specific [place] Urine Protein Urine Glucose (UA) Urine Ketones Urine Occult Blood Urine Nitrate Urine Bilirubin Urine Urobilinogen Ur Leukocyte Esterase Urine WBC Ur Squamous Epith Cells Urine Bacteria Urine Yeast Micro UA Comment Ur Microscopic Review Urine Culture Comments Tacrolimus 04/08/18 04/08/18 04/08/18 11:34 11:34 11:34 WBC 11.7 H RBC 3.57 L Hgb 10.0 L Hct 32.0 L MCV 89.6 MCH 27.8 MCHC 31.1 L RDW 16.6 Plt Count 999 H MPV 8.1 Neut % (Auto) 75.0 H Lymph % (Auto) 8.8 L [place] % (Auto) 13.5 H Eos % (Auto) 1.8 Baso % (Auto) 0.9 Neut # (Auto) 8.8 H Lymph # (Auto) 1.0 [place] # (Auto) 1.6 H Eos # (Auto) 0.2 Baso # (Auto) 0.1 WBC Differential . Differential Comment Auto diff final Sodium 135 L Potassium 5.1 D Chloride 96 L Carbon Dioxide 29.4 Anion Gap 10 BUN 30 H Creatinine 1.29 H Estimated GFR 43 L POC Glucose Random Glucose 103 D Calcium 9.2 D Phosphorus 3.7 Magnesium 1.9 Urine Color Urine Clarity Urine pH Ur Specific [place] Urine Protein Urine Glucose (UA) Urine Ketones Urine Occult Blood Urine Nitrate Urine Bilirubin Urine Urobilinogen Ur Leukocyte Esterase Urine WBC Ur Squamous Epith Cells Urine Bacteria Urine Yeast Micro UA Comment Ur Microscopic Review Urine Culture Comments Tacrolimus 9.2 04/08/18 04/08/18 04/08/18 15:30 16:27 21:50 WBC RBC Hgb Hct MCV MCH MCHC RDW Plt Count MPV Neut % (Auto) Lymph % (Auto) [place] % (Auto) Eos % (Auto) Baso % (Auto) Neut # (Auto) Lymph # (Auto) [place] # (Auto) Eos # (Auto) Baso # (Auto) WBC Differential Differential Comment Sodium Potassium Chloride Carbon Dioxide Anion Gap BUN Creatinine Estimated GFR POC Glucose 406 H 303 H Random Glucose Calcium Phosphorus Magnesium Urine Color Yellow Urine Clarity Hazy H Urine pH 7.0 Ur Specific [place] 1.009 Urine Protein Negative Urine Glucose (UA) 50 Urine Ketones Negative Urine Occult Blood Negative Urine Nitrate Negative Urine Bilirubin Negative Urine Urobilinogen Less than 2 Ur Leukocyte Esterase Moderate H Urine WBC 13 H Ur Squamous Epith Cells 1 Urine Bacteria Rare H Urine Yeast Few H Micro UA Comment Culture indicated Ur Microscopic Review Not Reportable Urine Culture Comments Culture indicated Tacrolimus 04/09/18 04/09/18 04/09/18 01:33 04:54 04:57 WBC RBC Hgb Hct MCV MCH MCHC RDW Plt Count MPV Neut % (Auto) Lymph % (Auto) [place] % (Auto) Eos % (Auto) Baso % (Auto) Neut # (Auto) Lymph # (Auto) [place] # (Auto) Eos # (Auto) Baso # (Auto) WBC Differential Differential Comment Sodium Potassium Chloride Carbon Dioxide Anion Gap BUN Creatinine Estimated GFR POC Glucose 301 H 28 L* 26 L* Random Glucose Calcium Phosphorus Magnesium Urine Color Urine Clarity Urine pH Ur Specific [place] Urine Protein Urine Glucose (UA) Urine Ketones Urine Occult Blood Urine Nitrate Urine Bilirubin Urine Urobilinogen Ur Leukocyte Esterase Urine WBC Ur Squamous Epith Cells Urine Bacteria Urine Yeast Micro UA Comment Ur Microscopic Review Urine Culture Comments Tacrolimus 04/09/18 04/09/18 05:10 07:45 WBC RBC Hgb Hct MCV MCH MCHC RDW Plt Count MPV Neut % (Auto) Lymph % (Auto) [place] % (Auto) Eos % (Auto) Baso % (Auto) Neut # (Auto) Lymph # (Auto) [place] # (Auto) Eos # (Auto) Baso # (Auto) WBC Differential Differential Comment Sodium Potassium Chloride Carbon Dioxide Anion Gap BUN Creatinine Estimated GFR POC Glucose 212 H 116 H Random Glucose Calcium Phosphorus Magnesium Urine Color Urine Clarity Urine pH Ur Specific [place] Urine Protein Urine Glucose (UA) Urine Ketones Urine Occult Blood Urine Nitrate Urine Bilirubin Urine Urobilinogen Ur Leukocyte Esterase Urine WBC Ur Squamous Epith Cells Urine Bacteria Urine Yeast Micro UA Comment Ur Microscopic Review Urine Culture Comments Tacrolimus Culture Results: Microbiology 04/04/18 14:11 Aerobic Blood Culture - Preliminary Blood - Line No growth in 4 days Anaerobic Blood Culture - Preliminary No growth in 4 days 04/04/18 14:15 Aerobic Blood Culture - Preliminary Blood - Peripheral No growth in 4 days Anaerobic Blood Culture - Preliminary No growth in 4 days Medications: Active Medications Generic Name Dose Route Start Last Admin Trade Name Freq PRN Reason Stop Dose Admin Acetaminophen 650 mg 03/27/18 22:38 04/07/18 09:01 Tylenol PO 650 mg Q4H PRN Administration Temp > 100.4 Lipase/Protease/Amylase 1 cap 03/28/18 08:00 04/08/18 17:[address] 24/76/120 PO 1 cap TIDAC RONALD Administration Anagrelide HCl 0.5 mg 03/27/18 23:30 04/09/18 00:14 Agrylin PO 0.5 mg Q12H RONALD Administration Atorvastatin Calcium 20 mg 03/28/18 09:00 04/08/18 09:33 Lipitor PO Not Given DAILY [facility] Azathioprine 100 mg 03/28/18 09:00 03/29/18 10:16 Imuran PO Not Given DAILY [facility] Benzocaine/Menthol 1 lozenge 04/01/18 10:00 04/04/18 05:19 Chloraseptic Sore Throat Lozenge BUCCAL 1 lozenge Q4H PRN Administration sore throat Calcium Carbonate 500 mg 03/28/18 09:00 04/08/18 20:40 Oscal PO 500 mg BID RONALD Administration Calcium Carbonate 500 mg 03/29/18 08:16 04/08/18 20:40 Tums Chew CHEW 500 mg Q2H PRN Administration DYSPEPSIA Carvedilol 12.5 mg 03/28/18 09:00 04/08/18 20:40 Coreg PO 12.5 mg BID RONALD Administration Clonidine HCl 0.1 mg 03/29/18 08:15 03/30/18 16:24 Catapres PO 0.1 mg Q6H PRN Administration SBP>160, DBP>90 Dextrose 50 ml 03/31/18 11:05 04/09/18 05:06 D50w Vial IV.PUSH 50 ml UNSCH PRN Administration PER HYPOGLYCEMIA PROTOCOL Diazepam 5 mg 04/07/18 16:00 04/08/18 20:41 Valium PO 5 mg Q12HR RONALD Administration Diphenoxylate HCl/Atropine 1 tab 03/28/18 09:00 04/08/18 17:13 Lomotil PO 1 tab TID RONALD Administration Enoxaparin Sodium 40 mg 03/28/18 09:00 04/07/18 09:04 Lovenox Inj SQ 40 mg DAILY RONALD Administration Heparin Sodium (Porcine) 0 unit 03/28/18 01:25 03/28/18 05:44 Heparin Central Flush IV.FLUSH 250 unit PRN PRN Administration Flush each lumen Heparin Sodium (Porcine) 0 unit 03/28/18 09:00 04/08/18 09:32 Heparin Central Flush IV.FLUSH Not Given DAILY [facility] Hydromorphone HCl 4 mg 04/06/18 17:00 04/09/18 00:33 Dilaudid PO 4 mg Q4H PRN Administration PAIN SCALE 6 TO 10 Hydroxyzine HCl 50 mg 04/03/18 03:11 04/07/18 18:29 Vistaril Inj IM 50 mg Q6H PRN Administration pruritis Potassium Chloride 20 meq in 100 mls @ 100 mls/hr 03/30/18 11:28 04/01/18 14: 57 Kcl 20 Meq Premix Inj IV.SIG Infused Q1H PRN Infusion for K+ 4.5 to 5 Insulin Aspart 0 unit 04/08/18 19:00 04/09/18 08:21 Novolog Insulin Correctional Sugar Inj SQ Not Given , [facility] Protocol Metoclopramide HCl 5 mg 04/05/18 18:30 04/09/18 06:52 Reglan Inj IV.PUSH 5 mg Q6H RONALD Administration Nystatin 5 ml 04/02/18 10:00 04/08/18 22:04 Mycostatin Liq SWISH-SWAL 5 ml QID RONALD Administration Ondansetron HCl 4 mg 04/01/18 00:33 04/07/18 20:43 Zofran Inj IV.PUSH 4 mg Q6H PRN Administration NAUSEA OR VOMITING Pantoprazole Sodium 40 mg 03/28/18 09:00 04/08/18 22:05 Protonix PO 40 mg BID RONALD Administration Potassium Phos/Sodium Phos 250 mg 04/03/18 13:00 04/08/18 17:13 K-Phos Neutral PO 250 mg TID RONALD Administration Prednisone 10 mg 03/28/18 09:00 04/08/18 09:30 Deltasone PO 10 mg DAILY RONALD Administration Promethazine HCl 25 mg 03/29/18 12:06 04/03/18 02:34 Phenergan PO 25 mg Q4H PRN Administration NAUSEA OR VOMITING Pseudoephedrine HCl 30 mg 04/05/18 17:36 04/06/18 06:26 Sudafed PO 30 mg Q6H PRN Administration HEADACHE Senna/Docusate Sodium 1 tab 03/28/18 09:00 04/08/18 20:41 Saray-Colace PO 1 tab BID RONALD Administration Sodium Chloride 0 ml 03/28/18 09:00 04/08/18 09:36 Ns Flush IV.FLUSH Not Given DAILY RONALD Sodium Chloride 0 ml 03/28/18 01:25 03/28/18 05:45 Ns Flush IV.FLUSH 10 ml PRN PRN Administration FLUSH AFTER USING IV ACCESS Tacrolimus 3 mg 04/05/18 23:30 04/09/18 00:14 Prograf PO 3 mg DAILY@2330 RONALD Administration Tacrolimus 3 mg 04/06/18 18:00 04/08/18 11:40 Prograf PO 3 mg DAILY@1130 RONALD Administration Objective Remarks: GENERAL: Well-nourished, well-developed middle-aged female patient, in no acute distress. SKIN: Warm and dry. HEAD: Normocephalic. EYES: No scleral icterus. No injection or drainage. NECK: Supple, trachea midline. CARDIOVASCULAR: +S1/S2 without murmurs. RESPIRATORY: Breath sounds clear, equal bilaterally. No accessory muscle use. GASTROINTESTINAL: Abdomen soft, LUQ tender, nondistended. EXTREMITIES: No cyanosis, or edema. MUSCULOSKELETAL: Adequate muscle tone. NEUROLOGICAL: No obvious focal deficit. Awake, alert, and oriented x3. PSYCHIATRIC: Appropriate mood and affect; insight and judgment normal. Assessment/Plan - Plan 1. Thrombocytosis: History of with work up at [facility], per outside notes is reactive. JAK2 was negative. CALR, MPL studies pending. Flow cytometry showed no evidence of a neoplastic leukocyte population. Peripheral blood smear showed moderate normochromic, normocytic anemia and thrombocytopenia. 2. Patient was originally refusing anagrelide, her platelets continue to increase and she started receiving anagrelide the evening of 04/05/2018. 3. 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 Previously on treatment dose of 60 mg subq daily due to recent VTE. Ultrasound venous Doppler on 04/04/2018 showed nonocclusive small-volume thrombus involving the distal superficial femoral vein and peroneal vein on the left. This could relate to residual chronic thrombus from the patient's prior DVT. No thrombus involving the right lower extremity. We will increase her Lovenox back to her treatment dose of 60 mg subcu BID. 4. GIB: GI team following. Hemoglobin has increased and stabilized. s/p GI procedure with no active bleeding. Sigmoid colon biopsy revealed moderately active chronic colitis with nonspecific features. 5. Hypoglycemia, BGM of 27 last night. It was her first night off of TPN. Management per attending. 6. Awaiting CBC results today. - Attending Statement The exam, history, and the medical decision-making described in the above note were completed with the assistance of the mid-level provider. I reviewed and agree with the findings presented. I attest that I had a [id number] encounter with the patient on the same day, and personally performed and documented my assessment and findings in the medical record. Patient is feeling better. No report of bleeding. Platelet count trended down to 785. Thrombocytosis appears to be reactive. Patient had tried anagrelide in the past and platelet count dropped down to 80,000. We will monitor his CBC closely and dose reduce anagrelide if her platelet count trended down rapidly.
[2018-04-09] MEDS: Insulin Detemir Inj 1,000 UNIT/10 ML Vial SQ SCH ×2 (08:45→20:26)
[2018-04-09] MEDS: Diphenoxylate/Atropine 2.5/0.025 MG Tablet PO SCH ×3 (08:45→17:11)
[2018-04-09] MEDS: Calcium Carbonate 500 MG Tablet PO SCH ×2 (08:46→20:20)
[2018-04-09] MEDS: diazePAM 5 MG Tablet PO SCH ×2 (08:46→20:21)
[2018-04-09] MEDS: Lipase/Protease/Amylase 24/76/120 DR Capsule PO SCH ×3 (08:46→17:10)
[2018-04-09] MEDS: Potassium Phos/Sodium Phos 250 MG Tablet PO SCH ×3 (08:46→17:10)
[2018-04-09] MEDS: predniSONE 10 MG Tablet PO SCH (08:47)
[2018-04-09] MEDS: Carvedilol 12.5 MG Tablet PO SCH ×2 (08:47→20:19)
[2018-04-09] MEDS: Heparin Central Flush 100 UNIT/ML 5 ML Vial IV.FLUSH SCH (08:47)
[2018-04-09] MEDS: Nystatin Liq 500,000 UNIT/5 ML UDC SWISH-SWAL SCH ×4 (08:47→20:20)
[2018-04-09] MEDS: Senna/Docusate Sodium 8.6/50 MG Tablet PO SCH ×2 (08:48→20:20)
[2018-04-09] MEDS: Enoxaparin Inj 60 MG/0.6 ML Syringe SQ SCH ×2 (09:10→20:19)
[2018-04-09 10:34] LABS: Baso # (Auto) 0.1 th/mm3 (0.0-0.2); Baso % (Auto) 0.7 % (0.0-2.0); Eos # (Auto) 0.1 th/mm3 (0.0-0.4); Eos % (Auto) 1.1 % (0.0-4.0); Hematocrit 28.2 % (35.0-46.0); Lymph # (Auto) 1.2 th/mm3 (1.0-4.8); Lymph % (Auto) 10.7 % (9.0-44.0); Mean Corpuscular HGB Conc 35.5 % (32.0-36.0); Mean Corpuscular Hemoglobin 30.5 pg (27.0-34.0); Mean Corpuscular Volume 85.9 fL (80.0-100.0); Mean Platelet Volume 8.3 fL (7.0-11.0); Mono # (Auto) 1.4 th/mm3 (0.0-0.9); Mono % (Auto) 12.1 % (0.0-8.0); Neut # (Auto) 8.8 th/mm3 (1.8-7.7); Neut % (Auto) 75.4 % (16.0-70.0); Platelet Count 785 th/mm3 (150-450); Red Blood Count 3.29 mil/mm3 (4.00-5.30); Red Cell Distribution Width 16.4 % (11.6-17.2); White Blood Count 11.6 th/mm3 (4.0-11.0)
[2018-04-09 10:52] LABS: Calcium 9.4 mg/dL (8.5-10.1); Carbon Dioxide 26.6 meq/L (21.0-32.0); Magnesium 1.8 mg/dL (1.5-2.5); Phosphorus 3.5 mg/dL (2.5-4.9)
--- NOTE | 2018-04-09 13:36 | P.PNTS ---
Subjective Interval history: Feels better today. Did have an episode of symptomatic hypoglycemia early this morning. Loose stools haven't increased in volume. Physical Exam Vital signs: Vital Signs 04/08/18 14:00 04/08/18 14:40 04/08/18 14:41 Temperature Pulse Rate 78 74 Respiratory Rate 20 Blood Pressure Pulse Oximetry 04/08/18 16:00 04/08/18 17:00 04/08/18 17:54 Temperature 97.8 F Pulse Rate 78 72 78 Respiratory Rate 16 Blood Pressure 121/68 Pulse Oximetry 96 04/08/18 19:00 04/08/18 20:00 04/08/18 21:00 Temperature 98.5 F Pulse Rate 83 76 70 Respiratory Rate 16 Blood Pressure 104/63 Pulse Oximetry 96 04/08/18 22:00 04/08/18 23:00 04/09/18 00:00 Temperature 98.3 F Pulse Rate 72 70 70 Respiratory Rate 16 Blood Pressure 132/69 Pulse Oximetry 96 04/09/18 01:00 04/09/18 02:00 04/09/18 03:00 Temperature Pulse Rate 74 74 75 Respiratory Rate Blood Pressure Pulse Oximetry 04/09/18 04:00 04/09/18 05:00 04/09/18 06:00 Temperature 97.9 F Pulse Rate 78 72 70 Respiratory Rate 16 Blood Pressure 114/65 Pulse Oximetry 96 04/09/18 07:00 04/09/18 08:00 04/09/18 09:00 Temperature 97.7 F Pulse Rate 74 78 77 Respiratory Rate 16 Blood Pressure 113/67 Pulse Oximetry 98 04/09/18 10:00 04/09/18 11:00 04/09/18 12:00 Temperature 97.9 F Pulse Rate 69 71 80 Respiratory Rate 16 Blood Pressure 114/59 L Pulse Oximetry 99 04/09/18 13:00 Temperature Pulse Rate 81 Respiratory Rate Blood Pressure Pulse Oximetry Intake & Output 04/08/18 04/09/18 04/09/18 18:59 06:59 18:59 Intake Total 3160 / 3160 320 / 320 Output Total 875 / 875 100 / 100 Balance 2285 / 2285 220 / 220 Weight 56 kg Intake: IV 2200 / 2200 Sodium Chloride 23.4% Inj 11 2200 / 2200 MEQ Sodium Acetate Inj 59 MEQ KCl Inj 40 MEQ Magnesium Chloride Inj 10 MEQ Calcium Chloride Inj 9 MEQ MVI-12 Inj 10 ML Folvite Inj 1 MG NovoLIN R Inj 30 UNITS In TPN Fluid 2 Liter 2,000 ML @ 65.009 mls/hr IV.SIG Q24H [facility] Rx#:[id number] Oral 960 / 960 320 / 320 Output: Urine 875 / 875 100 / 100 Other: Date of Last Bowel Movement 04/06/18 04/08/18 - Constitutional no acute distress - Routine HEENT Exam Head: Present: normocephalic, atraumatic Eye: Present: EOMI ENT: Present: mucous membranes moist - Routine Neck Exam Present: supple, full ROM - Routine Respiratory Exam Present: CTA bilaterally - Routine Cardiovascular Exam Present: RRR, S1, S2 - Routine Abdominal Exam Present: soft, normoactive bowel sounds - Routine Extremities Exam Present: pulses intact Comments: calves soft NT bilaterally. - Routine Skin Exam Present: intact - Routine Neurological Exam Present: alert, oriented X3 - Detailed Neurological Exam: Coma Scale Verbal Response: Oriented - Routine Psychiatric Exam Present: normal affect, normal thought process Results - Labs CBC & Chem 7: 04/09/18 10:16 04/09/18 10:16 Laboratory Results - last 24 hr 04/08/18 04/08/18 04/08/18 11:34 15:30 16:27 WBC RBC Hgb Hct MCV MCH MCHC RDW Plt Count MPV Neut % (Auto) Lymph % (Auto) [place] % (Auto) Eos % (Auto) Baso % (Auto) Neut # (Auto) Lymph # (Auto) [place] # (Auto) Eos # (Auto) Baso # (Auto) WBC Differential Differential Comment Hematology Comments Sodium Potassium Chloride Carbon Dioxide Anion Gap BUN Creatinine Estimated GFR POC Glucose 406 H Random Glucose Calcium Phosphorus Magnesium Urine Color Yellow Urine Clarity Hazy H Urine pH 7.0 Ur Specific [place] 1.009 Urine Protein Negative Urine Glucose (UA) 50 Urine Ketones Negative Urine Occult Blood Negative Urine Nitrate Negative Urine Bilirubin Negative Urine Urobilinogen Less than 2 Ur Leukocyte Esterase Moderate H Urine WBC 13 H Ur Squamous Epith Cells 1 Urine Bacteria Rare H Urine Yeast Few H Micro UA Comment Culture indicated Ur Microscopic Review Not Reportable Urine Culture Comments Culture indicated Tacrolimus 9.2 04/08/18 04/09/18 04/09/18 21:50 01:33 04:54 WBC RBC Hgb Hct MCV MCH MCHC RDW Plt Count MPV Neut % (Auto) Lymph % (Auto) [place] % (Auto) Eos % (Auto) Baso % (Auto) Neut # (Auto) Lymph # (Auto) [place] # (Auto) Eos # (Auto) Baso # (Auto) WBC Differential Differential Comment Hematology Comments Sodium Potassium Chloride Carbon Dioxide Anion Gap BUN Creatinine Estimated GFR POC Glucose 303 H 301 H 28 L* Random Glucose Calcium Phosphorus Magnesium Urine Color Urine Clarity Urine pH Ur Specific [place] Urine Protein Urine Glucose (UA) Urine Ketones Urine Occult Blood Urine Nitrate Urine Bilirubin Urine Urobilinogen Ur Leukocyte Esterase Urine WBC Ur Squamous Epith Cells Urine Bacteria Urine Yeast Micro UA Comment Ur Microscopic Review Urine Culture Comments Tacrolimus 04/09/18 04/09/18 04/09/18 04:57 05:10 07:45 WBC RBC Hgb Hct MCV MCH MCHC RDW Plt Count MPV Neut % (Auto) Lymph % (Auto) [place] % (Auto) Eos % (Auto) Baso % (Auto) Neut # (Auto) Lymph # (Auto) [place] # (Auto) Eos # (Auto) Baso # (Auto) WBC Differential Differential Comment Hematology Comments Sodium Potassium Chloride Carbon Dioxide Anion Gap BUN Creatinine Estimated GFR POC Glucose 26 L* 212 H 116 H Random Glucose Calcium Phosphorus Magnesium Urine Color Urine Clarity Urine pH Ur Specific [place] Urine Protein Urine Glucose (UA) Urine Ketones Urine Occult Blood Urine Nitrate Urine Bilirubin Urine Urobilinogen Ur Leukocyte Esterase Urine WBC Ur Squamous Epith Cells Urine Bacteria Urine Yeast Micro UA Comment Ur Microscopic Review Urine Culture Comments Tacrolimus 04/09/18 04/09/18 04/09/18 10:16 10:16 10:16 WBC 11.6 H RBC 3.29 L Hgb 10.0 L Hct 28.2 L MCV 85.9 D MCH 30.5 MCHC 35.5 RDW 16.4 Plt Count 785 H MPV 8.3 Neut % (Auto) 75.4 H Lymph % (Auto) 10.7 [place] % (Auto) 12.1 H Eos % (Auto) 1.1 Baso % (Auto) 0.7 Neut # (Auto) 8.8 H Lymph # (Auto) 1.2 [place] # (Auto) 1.4 H Eos # (Auto) 0.1 Baso # (Auto) 0.1 WBC Differential . Differential Comment Auto diff final Hematology Comments Sodium 132 L Potassium 5.0 Chloride 98 Carbon Dioxide 26.6 Anion Gap 7 BUN 34 H Creatinine 1.31 H Estimated GFR 42 L POC Glucose Random Glucose 178 H Calcium 9.4 Phosphorus 3.5 Magnesium 1.8 Urine Color Urine Clarity Urine pH Ur Specific [place] Urine Protein Urine Glucose (UA) Urine Ketones Urine Occult Blood Urine Nitrate Urine Bilirubin Urine Urobilinogen Ur Leukocyte Esterase Urine WBC Ur Squamous Epith Cells Urine Bacteria Urine Yeast Micro UA Comment Ur Microscopic Review Urine Culture Comments Tacrolimus 9.0 04/09/18 12:50 WBC RBC Hgb Hct MCV MCH MCHC RDW Plt Count MPV Neut % (Auto) Lymph % (Auto) [place] % (Auto) Eos % (Auto) Baso % (Auto) Neut # (Auto) Lymph # (Auto) [place] # (Auto) Eos # (Auto) Baso # (Auto) WBC Differential Differential Comment Hematology Comments Sodium Potassium Chloride Carbon Dioxide Anion Gap BUN Creatinine Estimated GFR POC Glucose 252 H Random Glucose Calcium Phosphorus Magnesium Urine Color Urine Clarity Urine pH Ur Specific [place] Urine Protein Urine Glucose (UA) Urine Ketones Urine Occult Blood Urine Nitrate Urine Bilirubin Urine Urobilinogen Ur Leukocyte Esterase Urine WBC Ur Squamous Epith Cells Urine Bacteria Urine Yeast Micro UA Comment Ur Microscopic Review Urine Culture Comments Tacrolimus Microbiology 04/08/18 15:30 Clean Catch Urine Urine Culture - Preliminary Immature growth - reincubate 04/08/18 11:00 Catheter Tip - Central Venous Line Wound Culture - Preliminary No growth in 24 hours 04/04/18 14:11 Blood - Line Aerobic Blood Culture - Final No growth in 5 days 04/04/18 14:11 Blood - Line Anaerobic Blood Culture - Final No growth in 5 days 04/04/18 14:15 Blood - Peripheral Aerobic Blood Culture - Final No growth in 5 days 04/04/18 14:15 Blood - Peripheral Anaerobic Blood Culture - Final No growth in 5 days Assessment and Plan - Assessment (1) Fever Code(s): R50.9 - Fever, unspecified Status: Acute (2) 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 Admitted with left flank pain and FUO. No obvious source of infection yet identified. TPN stopped during this admission. Peripheral IV placed. Mild leukocytosis, improved form a few days ago. Central line removed by IR. Culture results pending. Thrush being treated-improving. On Nystatin S&S. Appreciate ID input. Abd pain and nausea better. Appreciate GI input. Kidney function seems relatively stable. UOP okay. Prograf level acceptable. Platelets in 700s range. On anagrelide. Appreciate hematology-onc input. Diin't eat dinner, reportedly because of timing. Calorie count Appreciate creamery worker input. Plan discussed with patient and the RN. Blood sugars continue to fluctuate. Hospitalist will review insulin regimen with patient. Will also plan to consult endocrinology as an outpatient to assist with ongoing glucose management, since we reportedly don't have inpatient endocrinology services available. Don't think patient will do well with just po intake, without TPN supplementation, but she is insistent on trying and refusing to have the central line replaced and TPN resumed. We'll see how things go. Will continue to follow. (1) Fever Qualifiers: Fever type: unspecified Qualified Code(s): R50.9 - Fever, unspecified
[2018-04-10] MEDS: Insulin NovoLOG Aspart Correctional Sugar Inj SQ SCH ×5 (02:41→23:56)
--- NOTE | 2018-04-10 08:04 | P.PNNP ---
Subjective Interval history: This is a late entry,for 04/09/18. Patient seen , alert, no complaint, want to go home. Physical Exam Vital signs: Vital Signs 04/09/18 09:00 04/09/18 10:00 04/09/18 11:00 Temperature Pulse Rate 77 69 71 Respiratory Rate Blood Pressure Pulse Oximetry 04/09/18 12:00 04/09/18 13:00 04/09/18 14:00 Temperature 97.9 F Pulse Rate 80 81 80 Respiratory Rate 16 Blood Pressure 114/59 L Pulse Oximetry 99 04/09/18 15:00 04/09/18 16:00 04/09/18 17:00 Temperature 97.8 F Pulse Rate 76 75 80 Respiratory Rate 16 Blood Pressure 105/61 Pulse Oximetry 96 04/09/18 18:00 04/09/18 19:00 04/09/18 20:00 Temperature 98.4 F Pulse Rate 76 74 74 Respiratory Rate 16 Blood Pressure 138/77 Pulse Oximetry 95 04/09/18 21:00 04/09/18 22:00 04/09/18 23:00 Temperature 97.6 F Pulse Rate 74 74 75 Respiratory Rate 16 Blood Pressure 122/75 Pulse Oximetry 97 04/10/18 00:00 04/10/18 01:00 04/10/18 02:00 Temperature Pulse Rate 70 72 78 Respiratory Rate Blood Pressure Pulse Oximetry 04/10/18 03:00 04/10/18 04:00 04/10/18 05:00 Temperature 97.8 F Pulse Rate 76 74 79 Respiratory Rate 16 Blood Pressure 113/62 Pulse Oximetry 96 Intake & Output 04/09/18 04/10/18 04/10/18 18:59 06:59 18:59 Intake Total 950 / 950 480 / 480 Output Total 400 / 400 400 / 400 Balance 550 / 550 80 / 80 Weight 60 kg Intake: Oral 950 / 950 480 / 480 Output: Urine 400 / 400 400 / 400 Other: Date of Last Bowel Movement 04/09/18 # Bowel Movements 4 Narrative: GENERAL: WN, WD pleasant female resting in bed in NAD. SKIN: Warm and dry. HEENT: AT/NC. Pupils equal and round. MMM. NECK: Supple no tender LAD or JVD. HEART: RRR no m/r/g. LUNGS: CTAB without wheezes or crackles. ABDOMEN: +BS, soft, ND. +Suprapubic TTP. EXTREMITIES: No LE edema. Calves supple without tenderness. NEURO: Awake and alert. Assessment and Plan - Assessment (1) Acute renal failure Code(s): N17.9 - Acute kidney failure, unspecified Status: Acute (2) Fever Code(s): R50.9 - Fever, unspecified Status: Acute Qualifiers: Fever type: unspecified Qualified Code(s): R50.9 - Fever, unspecified (3) Renal transplant recipient Code(s): Z94.0 - Kidney transplant status Status: Acute (4) On total parenteral nutrition (TPN) Code(s): Z78.9 - Other specified health status Status: Acute (5) DM (diabetes mellitus) Code(s): E11.9 - Type 2 diabetes mellitus without complications Status: Acute (6) Abdominal pain Code(s): R10.9 - Unspecified abdominal pain Status: Acute - Plan Patient has acute renal failure with baseline creatinine around 0.9 currently at 1.2, Phosphorus and magnesium were replaced Creatinine is now 1.3, Prograf is 9.0 Thrush nystatin added Thrombocytosis platelets are climbing up hematology following Leukocytosis Tacrolimus dose being adjusted by Dr. Patel sigmoidoscopy done biopsy site of anastomosis Blood glucose fluctuate Monitor tacrolimus level pending Follow BMP Avoid nephrotoxins Awaiting urine culture results.
[2018-04-10] MEDS: Nystatin Liq 500,000 UNIT/5 ML UDC SWISH-SWAL SCH ×4 (08:24→20:32)
[2018-04-10] MEDS: Lipase/Protease/Amylase 24/76/120 DR Capsule PO SCH ×3 (08:24→17:36)
[2018-04-10] MEDS: Insulin Detemir Inj 1,000 UNIT/10 ML Vial SQ SCH ×2 (08:24→21:20)
[2018-04-10] MEDS: diazePAM 5 MG Tablet PO SCH ×2 (08:25→20:33)
[2018-04-10] MEDS: predniSONE 10 MG Tablet PO SCH (08:25)
[2018-04-10] MEDS: Enoxaparin Inj 60 MG/0.6 ML Syringe SQ SCH ×2 (08:25→20:32)
[2018-04-10] MEDS: Calcium Carbonate 500 MG Tablet PO SCH ×2 (08:25→20:33)
[2018-04-10] MEDS: Diphenoxylate/Atropine 2.5/0.025 MG Tablet PO SCH ×3 (08:25→17:37)
[2018-04-10] MEDS: Potassium Phos/Sodium Phos 250 MG Tablet PO SCH ×3 (08:25→17:37)
[2018-04-10] MEDS: Carvedilol 12.5 MG Tablet PO SCH ×2 (08:25→20:32)
[2018-04-10] MEDS: Heparin Central Flush 100 UNIT/ML 5 ML Vial IV.FLUSH SCH (08:26)
[2018-04-10] MEDS: Senna/Docusate Sodium 8.6/50 MG Tablet PO SCH ×2 (08:28→20:33)
--- NOTE | 2018-04-10 10:11 | P.PNONC ---
Subjective Interval history: Patient ambulating in room. She states her urine culture just came back positive for E. coli. She is awaiting sensitivity report. She has urinary infection symptoms. Denies any drops in blood sugar last night. Objective Vital Signs/Intake & Output: Vital Signs 04/09/18 11:00 04/09/18 12:00 04/09/18 13:00 Temperature 97.9 F Pulse Rate 71 80 81 Respiratory Rate 16 Blood Pressure 114/59 L Pulse Oximetry 99 04/09/18 14:00 04/09/18 15:00 04/09/18 16:00 Temperature 97.8 F Pulse Rate 80 76 75 Respiratory Rate 16 Blood Pressure 105/61 Pulse Oximetry 96 04/09/18 17:00 04/09/18 18:00 04/09/18 19:00 Temperature 98.4 F Pulse Rate 80 76 74 Respiratory Rate 16 Blood Pressure 138/77 Pulse Oximetry 95 04/09/18 20:00 04/09/18 21:00 04/09/18 22:00 Temperature Pulse Rate 74 74 74 Respiratory Rate Blood Pressure Pulse Oximetry 04/09/18 23:00 04/10/18 00:00 04/10/18 01:00 Temperature 97.6 F Pulse Rate 75 70 72 Respiratory Rate 16 Blood Pressure 122/75 Pulse Oximetry 97 04/10/18 02:00 04/10/18 03:00 04/10/18 04:00 Temperature 97.8 F Pulse Rate 78 76 74 Respiratory Rate 16 Blood Pressure 113/62 Pulse Oximetry 96 04/10/18 05:00 04/10/18 07:00 04/10/18 08:00 Temperature 97.6 F Pulse Rate 79 79 87 Respiratory Rate 16 Blood Pressure 125/65 Pulse Oximetry 100 04/10/18 09:00 04/10/18 10:00 Temperature Pulse Rate 85 75 Respiratory Rate Blood Pressure Pulse Oximetry Intake & Output 04/09/18 04/10/18 04/10/18 18:59 06:59 18:59 Intake Total 950 / 950 480 / 480 Output Total 400 / 400 400 / 400 Balance 550 / 550 80 / 80 Weight 60 kg Intake: Oral 950 / 950 480 / 480 Output: Urine 400 / 400 400 / 400 Other: Date of Last Bowel Movement 04/09/18 # Bowel Movements 4 Result Diagrams: 04/09/18 10:16 04/09/18 10:16 Laboratory Results: Laboratory Results - last 24 hr 04/09/18 04/09/18 04/09/18 10:16 10:16 10:16 WBC 11.6 H RBC 3.29 L Hgb 10.0 L Hct 28.2 L MCV 85.9 D MCH 30.5 MCHC 35.5 RDW 16.4 Plt Count 785 H MPV 8.3 Neut % (Auto) 75.4 H Lymph % (Auto) 10.7 [place] % (Auto) 12.1 H Eos % (Auto) 1.1 Baso % (Auto) 0.7 Neut # (Auto) 8.8 H Lymph # (Auto) 1.2 [place] # (Auto) 1.4 H Eos # (Auto) 0.1 Baso # (Auto) 0.1 WBC Differential . Differential Comment Auto diff final Hematology Comments Sodium 132 L Potassium 5.0 Chloride 98 Carbon Dioxide 26.6 Anion Gap 7 BUN 34 H Creatinine 1.31 H Estimated GFR 42 L POC Glucose Random Glucose 178 H Calcium 9.4 Phosphorus 3.5 Magnesium 1.8 Tacrolimus 9.0 04/09/18 04/09/18 04/09/18 12:50 17:13 20:17 WBC RBC Hgb Hct MCV MCH MCHC RDW Plt Count MPV Neut % (Auto) Lymph % (Auto) [place] % (Auto) Eos % (Auto) Baso % (Auto) Neut # (Auto) Lymph # (Auto) [place] # (Auto) Eos # (Auto) Baso # (Auto) WBC Differential Differential Comment Hematology Comments Sodium Potassium Chloride Carbon Dioxide Anion Gap BUN Creatinine Estimated GFR POC Glucose 252 H 151 H 258 H Random Glucose Calcium Phosphorus Magnesium Tacrolimus 04/10/18 04/10/18 02:31 07:43 WBC RBC Hgb Hct MCV MCH MCHC RDW Plt Count MPV Neut % (Auto) Lymph % (Auto) [place] % (Auto) Eos % (Auto) Baso % (Auto) Neut # (Auto) Lymph # (Auto) [place] # (Auto) Eos # (Auto) Baso # (Auto) WBC Differential Differential Comment Hematology Comments Sodium Potassium Chloride Carbon Dioxide Anion Gap BUN Creatinine Estimated GFR POC Glucose 199 H 192 H Random Glucose Calcium Phosphorus Magnesium Tacrolimus Culture Results: Microbiology 04/08/18 15:30 Urine Culture - Final Clean Catch Urine Escherichia coli ESBL positive 04/08/18 11:00 Wound Culture - Final Catheter Tip - Central Venous Line No growth in 48 hours 04/04/18 14:11 Aerobic Blood Culture - Final Blood - Line No growth in 5 days Anaerobic Blood Culture - Final No growth in 5 days 04/04/18 14:15 Aerobic Blood Culture - Final Blood - Peripheral No growth in 5 days Anaerobic Blood Culture - Final No growth in 5 days Medications: Active Medications Generic Name Dose Route Start Last Admin Trade Name Freq PRN Reason Stop Dose Admin Acetaminophen 650 mg 03/27/18 22:38 04/07/18 09:01 Tylenol PO 650 mg Q4H PRN Administration Temp > 100.4 Lipase/Protease/Amylase 1 cap 03/28/18 08:00 04/10/18 08:[address] 24/76/120 PO 1 cap TIDAC RONALD Administration Anagrelide HCl 0.5 mg 03/27/18 23:30 04/10/18 00:58 Agrylin PO 0.5 mg Q12H RONALD Administration Atorvastatin Calcium 20 mg 03/28/18 09:00 04/10/18 08:25 Lipitor PO 20 mg DAILY RONALD Administration Azathioprine 100 mg 03/28/18 09:00 03/29/18 10:16 Imuran PO Not Given DAILY [facility]–1983 Benzocaine/Menthol 1 lozenge 04/01/18 10:00 04/04/18 05:19 Chloraseptic Sore Throat Lozenge BUCCAL 1 lozenge Q4H PRN Administration sore throat Calcium Carbonate 500 mg 03/28/18 09:00 04/10/18 08:25 Oscal PO 500 mg BID RONALD Administration Calcium Carbonate 500 mg 03/29/18 08:16 04/10/18 03:58 Tums Chew CHEW 500 mg Q2H PRN Administration DYSPEPSIA Carvedilol 12.5 mg 03/28/18 09:00 04/10/18 08:25 Coreg PO 12.5 mg BID RONALD Administration Clonidine HCl 0.1 mg 03/29/18 08:15 03/30/18 16:24 Catapres PO 0.1 mg Q6H PRN Administration SBP>160, DBP>90 Dextrose 50 ml 03/31/18 11:05 04/09/18 05:06 D50w Vial IV.PUSH 50 ml UNSCH PRN Administration PER HYPOGLYCEMIA PROTOCOL Diazepam 5 mg 04/07/18 16:00 04/10/18 08:25 Valium PO 5 mg Q12HR RONALD Administration Diphenoxylate HCl/Atropine 1 tab 03/28/18 09:00 04/10/18 08:25 Lomotil PO 1 tab TID RONALD Administration Enoxaparin Sodium 60 mg 04/09/18 09:00 04/10/18 08:25 Lovenox Inj SQ 60 mg Q12HR RONALD Administration Heparin Sodium (Porcine) 0 unit 03/28/18 01:25 03/28/18 05:44 Heparin Central Flush IV.FLUSH 250 unit PRN PRN Administration Flush each lumen Heparin Sodium (Porcine) 0 unit 03/28/18 09:00 04/10/18 08:26 Heparin Central Flush IV.FLUSH Not Given DAILY RONALD Hydromorphone HCl 4 mg 04/06/18 17:00 04/10/18 08:25 Dilaudid PO 4 mg Q4H PRN Administration PAIN SCALE 6 TO 10 Hydroxyzine HCl 50 mg 04/03/18 03:11 04/10/18 08:36 Vistaril Inj IM 50 mg Q6H PRN Administration pruritis Potassium Chloride 20 meq in 100 mls @ 100 mls/hr 03/30/18 11:28 04/01/18 14: 57 Kcl 20 Meq Premix Inj IV.SIG Infused Q1H PRN Infusion for K+ 4.5 to 5 Insulin Aspart 0 unit 04/09/18 21:00 04/10/18 08:24 Novolog Insulin Correctional Sugar Inj SQ 2 unit ACHS AND 3AM RONALD Administration Protocol Insulin Detemir 5 unit 04/09/18 21:00 04/09/18 20:26 Levemir Inj SQ 5 unit HS RONALD Administration Insulin Detemir 10 unit 04/09/18 09:00 04/10/18 08:24 Levemir Inj SQ 10 unit DAILY RONALD Administration Metoclopramide HCl 5 mg 04/05/18 18:30 04/10/18 06:31 Reglan Inj IV.PUSH 5 mg Q6H RONALD Administration Nystatin 5 ml 04/02/18 10:00 04/10/18 08:24 Mycostatin Liq SWISH-SWAL 5 ml QID RONALD Administration Ondansetron HCl 4 mg 04/01/18 00:33 04/10/18 03:58 Zofran Inj IV.PUSH 4 mg Q6H PRN Administration NAUSEA OR VOMITING Pantoprazole Sodium 40 mg 03/28/18 09:00 04/10/18 08:25 Protonix PO 40 mg BID RONALD Administration Potassium Phos/Sodium Phos 250 mg 04/03/18 13:00 04/10/18 08:25 K-Phos Neutral PO 250 mg TID RONALD Administration Prednisone 10 mg 03/28/18 09:00 04/10/18 08:25 Deltasone PO 10 mg DAILY RONALD Administration Promethazine HCl 25 mg 03/29/18 12:06 04/03/18 02:34 Phenergan PO 25 mg Q4H PRN Administration NAUSEA OR VOMITING Pseudoephedrine HCl 30 mg 04/05/18 17:36 04/06/18 06:26 Sudafed PO 30 mg Q6H PRN Administration HEADACHE Senna/Docusate Sodium 1 tab 03/28/18 09:00 04/10/18 08:28 Saray-Colace PO Not Given BID RONALD Sodium Chloride 0 ml 03/28/18 09:00 04/10/18 08:26 Ns Flush IV.FLUSH 2 ml DAILY RONALD Administration Sodium Chloride 0 ml 03/28/18 01:25 03/28/18 05:45 Ns Flush IV.FLUSH 10 ml PRN PRN Administration FLUSH AFTER USING IV ACCESS Tacrolimus 3 mg 04/05/18 23:30 04/10/18 00:58 Prograf PO 3 mg DAILY@2330 RONALD Administration Tacrolimus 3 mg 04/06/18 18:00 04/09/18 10:43 Prograf PO 3 mg DAILY@1130 RONALD Administration Trimethoprim/Sulfamethoxazole 1 tab 04/09/18 10:00 04/10/18 08:25 Bactrim Ds PO 1 tab Q12HR RONALD Administration Objective Remarks: GENERAL: Well-nourished, well-developed middle-aged female patient, in no acute distress. SKIN: Warm and dry. 4x4 guaze drsg to right chest wall, dry/intact. HEAD: Normocephalic. EYES: No scleral icterus. No injection or drainage. NECK: Supple, trachea midline. CARDIOVASCULAR: +S1/S2 without murmurs. RESPIRATORY: Breath sounds clear, equal bilaterally. No accessory muscle use. GASTROINTESTINAL: Abdomen soft, non-tender, nondistended. EXTREMITIES: No cyanosis, or edema. MUSCULOSKELETAL: Adequate muscle tone. NEUROLOGICAL: No obvious focal deficit. Awake, alert, and oriented x3. PSYCHIATRIC: Appropriate mood and affect; insight and judgment normal. Assessment/Plan - Plan 1. Thrombocytosis: History of with work up at [facility], per outside notes is reactive. JAK2 was negative. CALR, MPL studies pending. Flow cytometry showed no evidence of a neoplastic leukocyte population. Peripheral blood smear showed moderate normochromic, normocytic anemia and thrombocytopenia. 2. Currently on anagrelide. Pt reports platelet counts dropping quickly when she takes anagrelide. Awaiting CBC today. We will continue to monitor closely. 3. History of VTE: On lovenox 60 mg subq daily due to recent VTE. Ultrasound venous Doppler on 04/04/2018 showed nonocclusive small-volume thrombus involving the distal superficial femoral vein and peroneal vein on the left. This could relate to residual chronic thrombus from the patient's prior DVT. No thrombus involving the right lower extremity. 4. GIB: GI team following. Hemoglobin was stabilizing. s/p GI procedure with no active bleeding. Sigmoid colon biopsy revealed moderately active chronic colitis with nonspecific features. Awaiting CBC today. 5. Hypoglycemia, BGM of 27 in the night on 04/08, which was her 1st night off of TPN. Denies any drops in blood sugar last night. Management per attending. 6. Awaiting CBC results today. - Attending Statement The exam, history, and the medical decision-making described in the above note were completed with the assistance of the mid-level provider. I reviewed and agree with the findings presented. I attest that I had a [id number] encounter with the patient on the same day, and personally performed and documented my assessment and findings in the medical record. Patient is feeling better today. Denies any bleeding. She stated she is going home today. CBC is still pending. She will continue anagrelide. I told her to follow-up with Dr. Wallace next week to check CBC. She voices understanding.
--- NOTE | 2018-04-10 10:23 | P.PNNP ---
Subjective Interval history: Patient is alert, no abd. pain, no SOB. Physical Exam Vital signs: Vital Signs 04/09/18 11:00 04/09/18 12:00 04/09/18 13:00 Temperature 97.9 F Pulse Rate 71 80 81 Respiratory Rate 16 Blood Pressure 114/59 L Pulse Oximetry 99 04/09/18 14:00 04/09/18 15:00 04/09/18 16:00 Temperature 97.8 F Pulse Rate 80 76 75 Respiratory Rate 16 Blood Pressure 105/61 Pulse Oximetry 96 04/09/18 17:00 04/09/18 18:00 04/09/18 19:00 Temperature 98.4 F Pulse Rate 80 76 74 Respiratory Rate 16 Blood Pressure 138/77 Pulse Oximetry 95 04/09/18 20:00 04/09/18 21:00 04/09/18 22:00 Temperature Pulse Rate 74 74 74 Respiratory Rate Blood Pressure Pulse Oximetry 04/09/18 23:00 04/10/18 00:00 04/10/18 01:00 Temperature 97.6 F Pulse Rate 75 70 72 Respiratory Rate 16 Blood Pressure 122/75 Pulse Oximetry 97 04/10/18 02:00 04/10/18 03:00 04/10/18 04:00 Temperature 97.8 F Pulse Rate 78 76 74 Respiratory Rate 16 Blood Pressure 113/62 Pulse Oximetry 96 04/10/18 05:00 04/10/18 07:00 04/10/18 08:00 Temperature 97.6 F Pulse Rate 79 79 87 Respiratory Rate 16 Blood Pressure 125/65 Pulse Oximetry 100 04/10/18 09:00 04/10/18 10:00 Temperature Pulse Rate 85 75 Respiratory Rate Blood Pressure Pulse Oximetry Intake & Output 04/09/18 04/10/18 04/10/18 18:59 06:59 18:59 Intake Total 950 / 950 480 / 480 Output Total 400 / 400 400 / 400 Balance 550 / 550 80 / 80 Weight 60 kg Intake: Oral 950 / 950 480 / 480 Output: Urine 400 / 400 400 / 400 Other: Date of Last Bowel Movement 04/09/18 # Bowel Movements 4 Narrative: GENERAL: WN, WD pleasant female resting in bed in NAD. SKIN: Warm and dry. HEENT: AT/NC. Pupils equal and round. MMM. NECK: Supple no tender LAD or JVD. HEART: RRR no m/r/g. LUNGS: CTAB without wheezes or crackles. ABDOMEN: +BS, soft, ND. +Suprapubic TTP. EXTREMITIES: No LE edema. Calves supple without tenderness. NEURO: Awake and alert. Assessment and Plan - Assessment (1) Acute renal failure Code(s): N17.9 - Acute kidney failure, unspecified Status: Acute (2) Fever Code(s): R50.9 - Fever, unspecified Status: Acute Qualifiers: Fever type: unspecified Qualified Code(s): R50.9 - Fever, unspecified (3) Renal transplant recipient Code(s): Z94.0 - Kidney transplant status Status: Acute (4) On total parenteral nutrition (TPN) Code(s): Z78.9 - Other specified health status Status: Acute (5) DM (diabetes mellitus) Code(s): E11.9 - Type 2 diabetes mellitus without complications Status: Acute (6) Abdominal pain Code(s): R10.9 - Unspecified abdominal pain Status: Acute - Plan Patient has acute renal failure with baseline creatinine around 0.9 currently at 1.2, Phosphorus and magnesium were replaced Creatinine was now 1.3, Prograf is 9.0 on 04/09. Thrush nystatin added Thrombocytosis platelets are climbing up hematology following Leukocytosis Tacrolimus dose being adjusted by Dr. Patel sigmoidoscopy done biopsy site of anastomosis Blood glucose fluctuate Monitor tacrolimus level pending Follow BMP Avoid nephrotoxins urine culture results noted. ID to follow and give recommendation. Follow the BMP. Dr. Hughes will follow from tomorrow.
--- NOTE | 2018-04-10 10:48 | P.PNIM ---
Subjective Interval history: Patient reports that her suprapubic pain and dysuria symptoms improved. Urine growing E. Coli ESBL. She reports that she has a history of the same. She is requesting to go home. Labs not done yet this morning. Due at 11 with Prograf level. Physical Exam Vital signs: Vital Signs 04/09/18 11:00 04/09/18 12:00 04/09/18 13:00 Temperature 97.9 F Pulse Rate 71 80 81 Respiratory Rate 16 Blood Pressure 114/59 L Pulse Oximetry 99 04/09/18 14:00 04/09/18 15:00 04/09/18 16:00 Temperature 97.8 F Pulse Rate 80 76 75 Respiratory Rate 16 Blood Pressure 105/61 Pulse Oximetry 96 04/09/18 17:00 04/09/18 18:00 04/09/18 19:00 Temperature 98.4 F Pulse Rate 80 76 74 Respiratory Rate 16 Blood Pressure 138/77 Pulse Oximetry 95 04/09/18 20:00 04/09/18 21:00 04/09/18 22:00 Temperature Pulse Rate 74 74 74 Respiratory Rate Blood Pressure Pulse Oximetry 04/09/18 23:00 04/10/18 00:00 04/10/18 01:00 Temperature 97.6 F Pulse Rate 75 70 72 Respiratory Rate 16 Blood Pressure 122/75 Pulse Oximetry 97 04/10/18 02:00 04/10/18 03:00 04/10/18 04:00 Temperature 97.8 F Pulse Rate 78 76 74 Respiratory Rate 16 Blood Pressure 113/62 Pulse Oximetry 96 04/10/18 05:00 04/10/18 07:00 04/10/18 08:00 Temperature 97.6 F Pulse Rate 79 79 87 Respiratory Rate 16 Blood Pressure 125/65 Pulse Oximetry 100 04/10/18 09:00 04/10/18 10:00 Temperature Pulse Rate 85 75 Respiratory Rate Blood Pressure Pulse Oximetry Intake & Output 04/09/18 04/10/18 04/10/18 18:59 06:59 18:59 Intake Total 950 / 950 480 / 480 Output Total 400 / 400 400 / 400 Balance 550 / 550 80 / 80 Weight 60 kg Intake: Oral 950 / 950 480 / 480 Output: Urine 400 / 400 400 / 400 Other: Date of Last Bowel Movement 04/09/18 # Bowel Movements 4 Narrative: GENERAL: No acute distress. Chronically ill appearing. CARDIOVASCULAR: Normal rate and regular rhythm without murmurs, gallops, or rubs. RESPIRATORY: Good respiratory efforts. Breath sounds equal and clear to auscultation bilaterally. GASTROINTESTINAL: Abdomen soft, mild tenderness to palpation in the suprapubic region. Normal active bowel sounds MUSCULOSKELETAL: Extremities without cyanosis, or edema. NEURO: Alert & Oriented x4 to person, place, time, situation. Moves all ext x4 PSYCH: Appropriate mood and affect. Results - Labs CBC & Chem 7: 04/10/18 14:19 04/10/18 14:19 Laboratory Results - last 24 hr 04/09/18 04/09/18 04/09/18 10:16 10:16 10:16 WBC 11.6 H RBC 3.29 L Hgb 10.0 L Hct 28.2 L MCV 85.9 D MCH 30.5 MCHC 35.5 RDW 16.4 Plt Count 785 H MPV 8.3 Neut % (Auto) 75.4 H Lymph % (Auto) 10.7 [place] % (Auto) 12.1 H Eos % (Auto) 1.1 Baso % (Auto) 0.7 Neut # (Auto) 8.8 H Lymph # (Auto) 1.2 [place] # (Auto) 1.4 H Eos # (Auto) 0.1 Baso # (Auto) 0.1 WBC Differential . Differential Comment Auto diff final Hematology Comments Sodium 132 L Potassium 5.0 Chloride 98 Carbon Dioxide 26.6 Anion Gap 7 BUN 34 H Creatinine 1.31 H Estimated GFR 42 L POC Glucose Random Glucose 178 H Calcium 9.4 Phosphorus 3.5 Magnesium 1.8 Tacrolimus 9.0 04/09/18 04/09/18 04/09/18 12:50 17:13 20:17 WBC RBC Hgb Hct MCV MCH MCHC RDW Plt Count MPV Neut % (Auto) Lymph % (Auto) [place] % (Auto) Eos % (Auto) Baso % (Auto) Neut # (Auto) Lymph # (Auto) [place] # (Auto) Eos # (Auto) Baso # (Auto) WBC Differential Differential Comment Hematology Comments Sodium Potassium Chloride Carbon Dioxide Anion Gap BUN Creatinine Estimated GFR POC Glucose 252 H 151 H 258 H Random Glucose Calcium Phosphorus Magnesium Tacrolimus 04/10/18 04/10/18 02:31 07:43 WBC RBC Hgb Hct MCV MCH MCHC RDW Plt Count MPV Neut % (Auto) Lymph % (Auto) [place] % (Auto) Eos % (Auto) Baso % (Auto) Neut # (Auto) Lymph # (Auto) [place] # (Auto) Eos # (Auto) Baso # (Auto) WBC Differential Differential Comment Hematology Comments Sodium Potassium Chloride Carbon Dioxide Anion Gap BUN Creatinine Estimated GFR POC Glucose 199 H 192 H Random Glucose Calcium Phosphorus Magnesium Tacrolimus Microbiology 04/08/18 15:30 Clean Catch Urine Urine Culture - Final Escherichia coli ESBL positive 04/08/18 11:00 Catheter Tip - Central Venous Line Wound Culture - Final No growth in 48 hours 04/04/18 14:11 Blood - Line Aerobic Blood Culture - Final No growth in 5 days 04/04/18 14:11 Blood - Line Anaerobic Blood Culture - Final No growth in 5 days 04/04/18 14:15 Blood - Peripheral Aerobic Blood Culture - Final No growth in 5 days 04/04/18 14:15 Blood - Peripheral Anaerobic Blood Culture - Final No growth in 5 days Assessment and Plan - Assessment (1) SIRS (systemic inflammatory response syndrome) Code(s): R65.10 - Systemic inflammatory response syndrome (SIRS) of non- infectious origin without acute organ dysfunction Status: Acute (2) H/O kidney transplant Code(s): Z94.0 - Kidney transplant status Status: Acute (3) Abdominal pain Code(s): R10.9 - Unspecified abdominal pain Status: Acute (4) On total parenteral nutrition (TPN) Code(s): Z78.9 - Other specified health status Status: Acute (5) Renal insufficiency Code(s): N28.9 - Disorder of kidney and ureter, unspecified Status: Acute (6) DM (diabetes mellitus) Code(s): E11.9 - Type 2 diabetes mellitus without complications Status: Acute - Plan 57 YOF with history of DM, dumping syndrome on TPN, chronic diarrhea, GERD, h/o splenectomy, gastroparesis, h/o DVT on SQ Lovenox, and h/o renal transplant 2017 admitted on 03/27 for evaluation of fever as recommended by her transplant surgeon in [place], [place]. Acute kidney injury in a patient with history of renal transplant:Baseline creatinine around 0.9 - s/p LURKT June 2017 - Transplant surgeon following - Nephrology following. Creatinine fluctuating. Labs pending for today. DW transplant surgeon - Prograf adjusted and levels being monitored Fever -resolved - CXR and U/A unremarkable on admission. Repeat urine growing E. coli ESBL. Patient reports history of ESBL E. coli. - BC no growth to date - EBV, CMV, BK virus negative - Leukocytosis improving. Fever resolved E. coli ESBL in the urine: - Patient complained of dysuria, hesitancy, urinary frequency, and suprapubic tenderness. Her symptoms improved. -Urine culture came back today with E. coli ESBL resistant to Bactrim which the patient was started on yesterday. I discontinued Bactrim since it is resistant to it. - I discussed with ID Dr. Austin who recommended Augmentin 500 mg TID [id number]. First dose ordered now to ensure the patient can tolerate this medication. Thrombocytosis - Hematology following - Pt reportedly worked up at [facility] and was found to be reactive - History of VTE - Peripheral smear shows moderate normochromic normocytic anemia and thrombocytopenia - Awaiting results of CALR, MPL - JAK2 mutation negative - Started on anagrelide this admission Chronic abdominal pain - s/p multiple bowel resections and prior surgeries as well as known history of gastroparesis - CT A/P 03/27 showing: Status post cholecystectomy with prominent intrahepatic pneumobilia. Numerous subcentimeter hypodensities lesions in both lobes of the liver, most prominently in the right lobe. Although nonspecific, cannot exclude hepatic abscesses in the appropriate clinical setting. Comparisons with prior CT examinations would be beneficial to determine chronicity. 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 Mild hydronephrosis of the transplant kidney without perirenal fluid collections or radiopaque calculi. Status post near total colectomy with multiple suture lines in the left upper quadrant. Several loops of small bowel in the left upper quadrant are marginally dilated without definitive evidence for bowel obstruction - Repeat 04/04 with same findings as well as new stomach distention and mild bibasilar atelectasis - GI consulted and patient underwent EGD and sigmoidoscopy 04/05 showing esophagitis, retained gastric fluids and food residue in the stomach, hyperemic and inflamed prior surgical anastomosis, internal hemorrhoids - Biopsy of sigmoid revealed moderately active chronic colitis with nonspecific features - Continue Reglan, Creon, Lomotil - [employer] following, TPN discontinued, recommended PO diet. Patient states she does not normally eat 3 meals a day. She refused to consider TPN again at this time. Type II DM - Sugars are very labile and patient does not eat consistently. - Continue with decreased dose of Levemir 5 units HS, continue 10 units in the morning - Hold insulin if patient not eating - Continue SSI per protocol - [employer] following Oral thrush - Continue Nystatin Chronic pain - Palliative care following - Dilaudid PRN - Sudafed PRN headache - CT head negative when patient complained of headache HLD - Continue home statin History of DVT - Doppler U/S 04/04 showed nonocclusive small-volume thrombus involving the distal superficial femoral vein and peroneal vein on the left, possibly residual from known DVT - Continue Lovenox DVT Prophylaxis: Lovenox Discharge Planning: Would need clearance from Transplant service. Follow up labs. Patient is eager to go home.
[2018-04-10] MEDS ORDERED: Amoxicillin/Clavulanate 500/125 MG Tablet PO SCH (11:28)
--- NOTE | 2018-04-10 11:55 | P.DIET ---
Nutritional Evaluation Type of nutrition evaluation: follow-up Nutrition consult regarding: Diet Evaluation [place] [facility] [place] Per Transplant Surgeon request: Calorie count to assess pt's po intake for adequacy Subjective Subjective Comments: 04/10 Pt states she is eating very well and drinking her Glucerna shakes. She states she can only eat two meals/day. She very much wants to go home today. 04/[address] Patel for Calorie Count to start 04/08 when diet is advanced. Pt and RN Louise informed Calorie Count has started Brought forward from previous note:Pt reports she is drinking the Glucerna Shakes and would like a different flavor. Pt provided w/Nutrition Education for Gastroparesis and CHO-counting, small meals/feedings daily. Discussed pt's assessed needs for kcals and protein and encouraged her to track/journal her po intake daily to ensure she is meeting her assessed needs. Brought forward from RD note on 03/30: Pt says she eats very little at home- usually a slice of toast and a protein shake daily. Pt says meats and vegetables "go right through me". Pt declines Beneprotein packets and says she has an aversion to adding powder to drinks. Pt is receptive to drinking Glucerna Shakes and says she has had these in the past. Pt's home TPN runs for 12-hours daily so she can "be up moving around". Objective - Diagnosis Fever, Renal Transplant - Objective [place] body weight: 61.4 kg % IBW: 91 Body Weight Used for Calculations: Actual (55.9kg) Energy Needs - Lower Range (kCal/kg): 30 Energy Needs - Upper Range (kCal/kg): 35 Lower Limit kCal/kg (kCals): 1,677 Upper Limit kCal/kg (kCals): 1,957 Lower Limit Protein Factor (Grams per Kg): 0.8 Upper Limit Protein Factor (Grams per Kg): 1.0 Lower Protein Needs (Protein): 45 Upper Protein Needs (Protein): 56 Fluid Factor (ml/kg): 30 Estimated Fluid Needs (ml): 1,677 Dietitian Reviewed in Medical Record: Current diet, Curent medications, Intake & Output, Labs, Medical history, TPN/PPN Diet Order: [id number] Objective Comments: PMH: DM, Dumping Syndrome, Gastroparesis related to adhesions and stenosis of the bowel-on TPN at home, GERD, chronic diarrhea, h/o bilateral nephrectomy and Right Kidney transplant 06/2017 ; h/o splenectomy, colectomy, oophrectomy, pancreatectomy, liver function failure; intestinal surgery 01/20/18-pt has 260cm of small bowel w/No Colon Feeding - Current PO Supplement Current Supplement: Glucerna Shake Current Frequency of Supplement: Three times a day Current kCals Provided by Supplement: 220 Current Protein Provided by Supplement: 10 - kCal Count Day 1 kCal Intake: 1,065 (two meals) Day 1 Protein Intake: 48 Day 2 kCal Intake: 960 (two meals) Day 2 Protein Intake: 56 Day 3 kCal Intake: 461 (one meal) Day 3 Protein Intake: 14 Assessment Assessment: Verbal request by phone from Dr Patel for a Calorie Count to be started 04/08 when diet is advanced: 04/08 through 04/10 w/Nutrition Recs to follow 04/10. Calorie count complete. Pt is averaging two meals/day, with snacks and Glucerna , states she is too full to eat more. Her present po intake is >50% of her assessed nutritional needs in calories and 100% of her needs in protein (see above). Encouraged pt to continue current level of po intake at home. Answered all questions. Pt would very much like to go home today. Recommendations: Calorie count complete. Pt's po intake is adequate at this time. Probable discharge pending Reconsult dietitian if needed.
[2018-04-10] MEDS: Amoxicillin/Clavulanate 500/125 MG Tablet PO SCH ×2 (12:05→17:36)
[2018-04-10 13:32] LABS: Baso # (Auto) 0.1 th/mm3 (0.0-0.2); Baso % (Auto) 0.5 % (0.0-2.0); Eos # (Auto) 0.2 th/mm3 (0.0-0.4); Eos % (Auto) 1.2 % (0.0-4.0); Hematocrit 29.3 % (35.0-46.0); Hemoglobin 9.4 gm/dL (11.6-15.3); Lymph # (Auto) 1.4 th/mm3 (1.0-4.8); Lymph % (Auto) 10.8 % (9.0-44.0); Mean Corpuscular HGB Conc 32.1 % (32.0-36.0); Mean Corpuscular Hemoglobin 27.8 pg (27.0-34.0); Mean Corpuscular Volume 86.6 fL (80.0-100.0); Mean Platelet Volume 7.9 fL (7.0-11.0); Mono # (Auto) 1.3 th/mm3 (0.0-0.9); Mono % (Auto) 9.7 % (0.0-8.0); Neut # (Auto) 10.4 th/mm3 (1.8-7.7); Neut % (Auto) 77.8 % (16.0-70.0); Platelet Count 769 th/mm3 (150-450); Red Blood Count 3.38 mil/mm3 (4.00-5.30); Red Cell Distribution Width 16.4 % (11.6-17.2); White Blood Count 13.3 th/mm3 (4.0-11.0)
[2018-04-10 13:53] LABS: Calcium 9.4 mg/dL (8.5-10.1); Carbon Dioxide 20.7 meq/L (21.0-32.0); Magnesium 1.6 mg/dL (1.5-2.5); Phosphorus 2.9 mg/dL (2.5-4.9)
[2018-04-10 14:31] LABS: Baso % (Auto) 0.2 % (0.0-2.0); Eos # (Auto) 0.1 th/mm3 (0.0-0.4); Eos % (Auto) 0.9 % (0.0-4.0); Hematocrit 32.8 % (35.0-46.0); Hemoglobin 10.6 gm/dL (11.6-15.3); Lymph # (Auto) 1.2 th/mm3 (1.0-4.8); Lymph % (Auto) 9.8 % (9.0-44.0); Mean Corpuscular HGB Conc 32.4 % (32.0-36.0); Mean Corpuscular Hemoglobin 28.3 pg (27.0-34.0); Mean Corpuscular Volume 87.4 fL (80.0-100.0); Mean Platelet Volume 8.4 fL (7.0-11.0); Mono % (Auto) 7.9 % (0.0-8.0); Neut # (Auto) 10.3 th/mm3 (1.8-7.7); Neut % (Auto) 81.2 % (16.0-70.0); Platelet Count 814 th/mm3 (150-450); Red Blood Count 3.75 mil/mm3 (4.00-5.30); Red Cell Distribution Width 16.7 % (11.6-17.2); White Blood Count 12.7 th/mm3 (4.0-11.0)
[2018-04-10 15:33] LABS: Calcium 9.7 mg/dL (8.5-10.1); Carbon Dioxide 26.2 meq/L (21.0-32.0); Potassium 5.2 meq/L (3.5-5.1)
--- NOTE | 2018-04-10 17:20 | P.PNTS ---
Subjective Interval history: No new c/o. Abd pain at baseline. Ari po Physical Exam Vital signs: Vital Signs 04/09/18 18:00 04/09/18 19:00 04/09/18 20:00 Temperature 98.4 F Pulse Rate 76 74 74 Respiratory Rate 16 Blood Pressure 138/77 Pulse Oximetry 95 04/09/18 21:00 04/09/18 22:00 04/09/18 23:00 Temperature 97.6 F Pulse Rate 74 74 75 Respiratory Rate 16 Blood Pressure 122/75 Pulse Oximetry 97 04/10/18 00:00 04/10/18 01:00 04/10/18 02:00 Temperature Pulse Rate 70 72 78 Respiratory Rate Blood Pressure Pulse Oximetry 04/10/18 03:00 04/10/18 04:00 04/10/18 05:00 Temperature 97.8 F Pulse Rate 76 74 79 Respiratory Rate 16 Blood Pressure 113/62 Pulse Oximetry 96 04/10/18 07:00 04/10/18 08:00 04/10/18 09:00 Temperature 97.6 F Pulse Rate 79 87 85 Respiratory Rate 16 Blood Pressure 125/65 Pulse Oximetry 100 04/10/18 10:00 04/10/18 11:00 04/10/18 12:00 Temperature 97.8 F Pulse Rate 75 72 77 Respiratory Rate 16 Blood Pressure 119/69 Pulse Oximetry 100 04/10/18 13:00 04/10/18 14:00 04/10/18 15:00 Temperature 98.1 F Pulse Rate 70 75 70 Respiratory Rate 19 Blood Pressure 105/66 Pulse Oximetry 99 04/10/18 16:00 Temperature Pulse Rate 72 Respiratory Rate Blood Pressure Pulse Oximetry Intake & Output 04/09/18 04/10/18 04/10/18 18:59 06:59 18:59 Intake Total 950 / 950 480 / 480 Output Total 400 / 400 400 / 400 Balance 550 / 550 80 / 80 Weight 60 kg Intake: Oral 950 / 950 480 / 480 Output: Urine 400 / 400 400 / 400 Other: Date of Last Bowel Movement 04/09/18 # Bowel Movements 4 - Constitutional no acute distress - Routine HEENT Exam Head: Present: normocephalic, atraumatic Eye: Present: EOMI ENT: Present: mucous membranes moist - Routine Neck Exam Present: supple - Routine Respiratory Exam Present: CTA bilaterally - Routine Cardiovascular Exam Present: RRR, S1, S2 - Routine Abdominal Exam Present: soft, normoactive bowel sounds - Routine Skin Exam Present: intact - Routine Neurological Exam Present: alert, oriented X3 - Detailed Neurological Exam: Coma Scale Verbal Response: Oriented - Routine Psychiatric Exam Present: normal affect, normal thought process Results - Labs CBC & Chem 7: 04/10/18 14:19 04/10/18 14:19 Laboratory Results - last 24 hr 04/09/18 04/09/18 04/10/18 17:13 20:17 02:31 WBC RBC Hgb Hct MCV MCH MCHC RDW Plt Count MPV Neut % (Auto) Lymph % (Auto) [place] % (Auto) Eos % (Auto) Baso % (Auto) Neut # (Auto) Lymph # (Auto) [place] # (Auto) Eos # (Auto) Baso # (Auto) WBC Differential Differential Comment Hematology Comments Sodium Potassium Chloride Carbon Dioxide Anion Gap BUN Creatinine Estimated GFR POC Glucose 151 H 258 H 199 H Random Glucose Calcium Phosphorus Magnesium Tacrolimus 04/10/18 04/10/18 04/10/18 07:43 11:09 13:00 WBC RBC Hgb Hct MCV MCH MCHC RDW Plt Count MPV Neut % (Auto) Lymph % (Auto) [place] % (Auto) Eos % (Auto) Baso % (Auto) Neut # (Auto) Lymph # (Auto) [place] # (Auto) Eos # (Auto) Baso # (Auto) WBC Differential Differential Comment Hematology Comments Sodium 127 L Potassium 7.0 H* D Chloride 100 Carbon Dioxide 20.7 L Anion Gap 6 BUN 28 H Creatinine 1.58 H Estimated GFR 34 L POC Glucose 192 H 158 H Random Glucose 144 H Calcium 9.4 Phosphorus 2.9 Magnesium 1.6 Tacrolimus 04/10/18 04/10/18 04/10/18 13:00 13:00 14:19 WBC 13.3 H 12.7 H RBC 3.38 L 3.75 L Hgb 9.4 L 10.6 L Hct 29.3 L 32.8 L MCV 86.6 87.4 MCH 27.8 28.3 MCHC 32.1 32.4 RDW 16.4 16.7 Plt Count 769 H 814 H MPV 7.9 8.4 Neut % (Auto) 77.8 H 81.2 H Lymph % (Auto) 10.8 9.8 [place] % (Auto) 9.7 H 7.9 Eos % (Auto) 1.2 0.9 Baso % (Auto) 0.5 0.2 Neut # (Auto) 10.4 H 10.3 H Lymph # (Auto) 1.4 1.2 [place] # (Auto) 1.3 H 1.0 H Eos # (Auto) 0.2 0.1 Baso # (Auto) 0.1 0.0 WBC Differential . . Differential Comment Auto diff final Auto diff final Hematology Comments Sodium Potassium Chloride Carbon Dioxide Anion Gap BUN Creatinine Estimated GFR POC Glucose Random Glucose Calcium Phosphorus Magnesium Tacrolimus 6.0 04/10/18 04/10/18 14:19 15:23 WBC RBC Hgb Hct MCV MCH MCHC RDW Plt Count MPV Neut % (Auto) Lymph % (Auto) [place] % (Auto) Eos % (Auto) Baso % (Auto) Neut # (Auto) Lymph # (Auto) [place] # (Auto) Eos # (Auto) Baso # (Auto) WBC Differential Differential Comment Hematology Comments Sodium 132 L Potassium 5.2 H D Chloride 98 Carbon Dioxide 26.2 Anion Gap 8 BUN 28 H Creatinine 1.63 H Estimated GFR 33 L POC Glucose 150 H Random Glucose 111 H Calcium 9.7 Phosphorus Magnesium Tacrolimus Microbiology 04/08/18 15:30 Clean Catch Urine Urine Culture - Final Escherichia coli ESBL positive 04/08/18 11:00 Catheter Tip - Central Venous Line Wound Culture - Final No growth in 48 hours Assessment and Plan - Assessment (1) Fever Code(s): R50.9 - Fever, unspecified Status: Acute (2) Renal transplant recipient Code(s): Z94.0 - Kidney transplant status Status: Acute (3) DM (diabetes mellitus) Code(s): E11.9 - Type 2 diabetes mellitus without complications Status: Acute (4) Abdominal pain Code(s): R10.9 - Unspecified abdominal pain Status: Acute - Plan 57 yof with complex medical/surgical history s/p [place]KT in [place] in 06/2017. Admitted with left flank pain and FUO. No obvious source of infection yet identified. TPN stopped during this admission. Peripheral IV placed. Mild leukocytosis. Central line removed by IR. Culture results negative. Thrush being treated-improving. On Nystatin S&S. Urine cuture c/w ESBL E coli. On Augmentin. Appreciate ID input. Abd pain and nausea better. Appreciate GI input. Creat 1.63 today (? dehydration vs other--will hydrate overnight and recheck in AM. UOP okay. Prograf level low-Will increase to 3 mg/4 mg. Platelets stable. On anagrelide. Appreciate hematology-onc input. Calorie count WNL. Appreciate team assembly line machine operator input. Plan discussed with patient and the RN. Blood sugars better. Will plan to consult endocrinology as an outpatient to assist with ongoing glucose management , since we reportedly don't have inpatient endocrinology services available. Don't think patient will do well with just po intake, without TPN supplementation, but she is insistent on trying and refusing to have the central line replaced and TPN resumed. We'll see how things go. Will continue to follow. (1) Fever Qualifiers: Fever type: unspecified Qualified Code(s): R50.9 - Fever, unspecified
[2018-04-10] MEDS: Sod Chloride 0.9% Inj 1,000 ML IV.CONT SCH (17:39)
--- NOTE | 2018-04-10 23:06 | IR ---
EXAM DATE: 04/08/2018 12:00 AM EDT AGE/SEX: 57 years / Female INDICATIONS: Patient presents with Central Venous Catheter in need of removal of catheter and cultur e tip for possible infection. CLINICAL DATA: This is the patient's initial encounter. Patient reports that signs and symptoms have been present for 2 weeks and indicates a pain score of 0/10. MEDICAL/SURGICAL HISTORY: Diabetes. Gastroesophageal reflux disease. Dumping syndrome, Gastrop aresis, Kidney failure, Liver function failure, Total Parenteral Nutrition. Splenectomy. Hysterecto my. Colectomy, Intestinal surgery, Oophorectomy, Pancreatectomy, Kidney transplant, Lower extremity s urgery. COMPARISON: . IMAGE SERIES: ACCESS SITE: Right internal jugular vein . . PROCEDURE: 1. PermaCath removal. The risks, benefits and alternatives to the procedure were explained and verbal and written consent w as obtained. The site was prepped in sterile fashion. Full sterile technique was used, including ca p, mask, sterile gloves and gown and a large sterile sheet. Hand hygiene and 2% chlorhexidine and/or betadine/alcohol prep was utilized per protocol for cutaneous antisepsis. The skin and subcutaneous tissues were infiltrated with local anesthetic solution. The tract was anesthetized with 1% Lidocaine using. The Permcath was dissected from the subcutaneous tissues and easily removed in one piece. Manual pressure was applied to the venotomy site until hem ostasis was obtained. Sterile dressing was applied. The patient tolerated the procedure well and there were no complications. CONCLUSION: 1. Uncomplicated Permcath removal. Electronically signed by: Efren Le MD 04/10/2018 11:04 PM EDT
[2018-04-11] MEDS: Sod Chloride 0.9% Inj 1,000 ML IV.CONT SCH (00:20)
[2018-04-11] MEDS: Insulin NovoLOG Aspart Correctional Sugar Inj SQ SCH ×4 (04:00→12:11)
[2018-04-11 05:52] LABS: Baso # (Auto) 0.2 th/mm3 (0.0-0.2); Baso % (Auto) 1.4 % (0.0-2.0); Eos # (Auto) 0.1 th/mm3 (0.0-0.4); Eos % (Auto) 0.8 % (0.0-4.0); Hematocrit 27.4 % (35.0-46.0); Hemoglobin 8.8 gm/dL (11.6-15.3); Lymph # (Auto) 1.2 th/mm3 (1.0-4.8); Lymph % (Auto) 8.9 % (9.0-44.0); Mean Corpuscular HGB Conc 32.2 % (32.0-36.0); Mean Corpuscular Hemoglobin 28.6 pg (27.0-34.0); Mean Corpuscular Volume 88.6 fL (80.0-100.0); Mono # (Auto) 1.7 th/mm3 (0.0-0.9); Mono % (Auto) 11.9 % (0.0-8.0); Neut # (Auto) 10.7 th/mm3 (1.8-7.7); Platelet Count 700 th/mm3 (150-450); Red Blood Count 3.09 mil/mm3 (4.00-5.30); Red Cell Distribution Width 16.7 % (11.6-17.2); White Blood Count 13.9 th/mm3 (4.0-11.0)
[2018-04-11 06:23] LABS: Calcium 8.8 mg/dL (8.5-10.1); Carbon Dioxide 22.7 meq/L (21.0-32.0); Magnesium 1.6 mg/dL (1.5-2.5); Phosphorus 2.6 mg/dL (2.5-4.9); Potassium 4.8 meq/L (3.5-5.1)
--- NOTE | 2018-04-11 10:00 | P.PNID ---
Subjective Remarks: 57 year old female with very complicated surgical Hx, S/P renal transplant admitted with fever. Notes reviewed Afebrile Abdominal pain is chronic L sided, same NO nausea this morning No vomiting Diarrhea as baseline Had some dysuria previous day, resolved UA with 13 WBC, UC E coli ESBL+ Ward removed today WBC 13+K Colon path - chronic colitis BC have been negative CT A/P no new findings CT chest with atelectasis US BLE - non-occlusive thrombus in L, prob residual of her previous LLE DVT Antibiotics: None Lines: PIV Past Medical History: Reviewed Allergies/Adverse Reactions: Allergies metronidazole [From Flagyl] Allergy (Mild, Verified 03/27/18 18:27) Hives oxycodone Allergy (Mild, Verified 03/27/18 18:27) Redness of Skin oxytetracycline [From Terramycin] Allergy (Mild, Verified 03/27/18 18:27) Hives fentanyl Allergy (Verified 04/05/18 17:07) Edema filgrastim [From Neupogen] Allergy (Verified 04/05/18 10:48) Anaphylaxis Objective Vital Signs 04/10/18 10:00 04/10/18 11:00 04/10/18 12:00 Temperature 97.8 F Pulse Rate 75 72 77 Respiratory Rate 16 Blood Pressure 119/69 Pulse Oximetry 100 04/10/18 13:00 04/10/18 14:00 04/10/18 15:00 Temperature 98.1 F Pulse Rate 70 75 70 Respiratory Rate 19 Blood Pressure 105/66 Pulse Oximetry 99 04/10/18 16:00 04/10/18 17:00 04/10/18 18:00 Temperature Pulse Rate 72 72 76 Respiratory Rate Blood Pressure Pulse Oximetry 04/10/18 19:00 04/10/18 20:00 04/10/18 21:00 Temperature 97.4 F L Pulse Rate 72 74 78 Respiratory Rate 16 Blood Pressure 115/58 L Pulse Oximetry 96 04/10/18 22:00 04/10/18 23:00 04/11/18 00:00 Temperature 97.7 F Pulse Rate 70 82 75 Respiratory Rate 16 Blood Pressure 119/60 Pulse Oximetry 94 L 04/11/18 01:07 04/11/18 02:00 04/11/18 03:00 Temperature 97.7 F Pulse Rate 80 82 74 Respiratory Rate 16 Blood Pressure 122/62 Pulse Oximetry 94 L 04/11/18 04:00 04/11/18 05:00 04/11/18 06:00 Temperature Pulse Rate 78 74 76 Respiratory Rate Blood Pressure Pulse Oximetry Intake & Output 04/10/18 04/11/18 04/11/18 18:59 06:59 18:59 Intake Total 1200 / 1200 1672 / 1672 Output Total 400 / 400 900 / 900 Balance 800 / 800 772 / 772 Weight 60.5 kg Intake: IV 1000 / 1000 NS Inj 1,000 ML @ 125 mls/hr IV 1000 / 1000 .CONT .Q8H [facility] Rx#:[id number] Oral 1200 / 1200 672 / 672 Output: Urine 400 / 400 900 / 900 Other: Date of Last Bowel Movement 04/10/18 04/10/18 # Bowel Movements 3 1 04/08/18 15:30 Clean Catch Urine Urine Culture - Final Escherichia coli ESBL positive 04/08/18 11:00 Catheter Tip - Central Venous Line Wound Culture - Final No growth in 48 hours 04/04/18 14:11 Blood - Line Aerobic Blood Culture - Final No growth in 5 days 04/04/18 14:11 Blood - Line Anaerobic Blood Culture - Final No growth in 5 days 04/04/18 14:15 Blood - Peripheral Aerobic Blood Culture - Final No growth in 5 days 04/04/18 14:15 Blood - Peripheral Anaerobic Blood Culture - Final No growth in 5 days Lab - Hematology Results 04/09/18 04/10/18 04/10/18 10:16 13:00 14:19 WBC 11.6 H 13.3 H 12.7 H RBC 3.29 L 3.38 L 3.75 L Hgb 10.0 L 9.4 L 10.6 L Hct 28.2 L 29.3 L 32.8 L MCV 85.9 D 86.6 87.4 MCH 30.5 27.8 28.3 MCHC 35.5 32.1 32.4 RDW 16.4 16.4 16.7 Plt Count 785 H 769 H 814 H MPV 8.3 7.9 8.4 Neut % (Auto) 75.4 H 77.8 H 81.2 H Lymph % (Auto) 10.7 10.8 9.8 [place] % (Auto) 12.1 H 9.7 H 7.9 Eos % (Auto) 1.1 1.2 0.9 Baso % (Auto) 0.7 0.5 0.2 Neut # (Auto) 8.8 H 10.4 H 10.3 H Lymph # (Auto) 1.2 1.4 1.2 [place] # (Auto) 1.4 H 1.3 H 1.0 H Eos # (Auto) 0.1 0.2 0.1 Baso # (Auto) 0.1 0.1 0.0 WBC Differential . . . Differential Comment Auto diff final Auto diff final Auto diff final Hematology Comments 04/11/18 05:12 WBC 13.9 H RBC 3.09 L Hgb 8.8 L Hct 27.4 L MCV 88.6 MCH 28.6 MCHC 32.2 RDW 16.7 Plt Count 700 H MPV 9.0 Neut % (Auto) 77.0 H Lymph % (Auto) 8.9 L [place] % (Auto) 11.9 H Eos % (Auto) 0.8 Baso % (Auto) 1.4 Neut # (Auto) 10.7 H Lymph # (Auto) 1.2 [place] # (Auto) 1.7 H Eos # (Auto) 0.1 Baso # (Auto) 0.2 WBC Differential . Differential Comment Auto diff final Hematology Comments Lab - Chemistry Results 04/09/18 04/09/18 04/09/18 10:16 12:50 17:13 Sodium 132 L Potassium 5.0 Chloride 98 Carbon Dioxide 26.6 Anion Gap 7 BUN 34 H Creatinine 1.31 H Estimated GFR 42 L POC Glucose 252 H 151 H Random Glucose 178 H Calcium 9.4 Phosphorus 3.5 Magnesium 1.8 04/09/18 04/10/18 04/10/18 20:17 02:31 07:43 Sodium Potassium Chloride Carbon Dioxide Anion Gap BUN Creatinine Estimated GFR POC Glucose 258 H 199 H 192 H Random Glucose Calcium Phosphorus Magnesium 04/10/18 04/10/18 04/10/18 11:09 13:00 14:19 Sodium 127 L 132 L Potassium 7.0 H* D 5.2 H D Chloride 100 98 Carbon Dioxide 20.7 L 26.2 Anion Gap 6 8 BUN 28 H 28 H Creatinine 1.58 H 1.63 H Estimated GFR 34 L 33 L POC Glucose 158 H Random Glucose 144 H 111 H Calcium 9.4 9.7 Phosphorus 2.9 Magnesium 1.6 04/10/18 04/10/18 04/11/18 15:23 20:28 03:25 Sodium Potassium Chloride Carbon Dioxide Anion Gap BUN Creatinine Estimated GFR POC Glucose 150 H 266 H 304 H Random Glucose Calcium Phosphorus Magnesium 04/11/18 04/11/18 05:12 08:17 Sodium 132 L Potassium 4.8 Chloride 100 Carbon Dioxide 22.7 Anion Gap 9 BUN 26 H Creatinine 1.44 H Estimated GFR 38 L POC Glucose 303 H Random Glucose 284 H D Calcium 8.8 D Phosphorus 2.6 Magnesium 1.6 Imaging: ITS Impressions Chest X-Ray 03/27/18 19:28 CONCLUSION: No acute cardiopulmonary disease. There is no evidence of pneumonia. Renal Ultrasound 03/29/18 00:00 CONCLUSION: 1. Very mild hydronephrosis of the transplant kidney. 2. 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 Abdomen X-Ray 03/30/18 14:53 CONCLUSION: No dilated loops of bowel observed. Abdomen/Pelvis CT 04/04/18 00:00 CONCLUSION: 1. The only new findings when compared to prior CT on 03/27/2018 include distention of the stomach and mild bibasilar atelectasis. Chest CT 04/04/18 00:00 CONCLUSION: 1. Increase in subsegmental basilar atelectasis since March 27. No new effusion. Upper lungs clear. No new adenopathy. Venous Doppler Study 04/04/18 13:29 CONCLUSION: 1. Nonocclusive small volume thrombus involving the distal superficial femoral vein and peroneal vein on the left. This could relate to residual chronic thrombus from the patient's prior DVT. 2. No thrombus involving the right lower extremity. 3. Nothing to account for bilateral lower extremity swelling. Head CT 04/07/18 00:00 CONCLUSION: 1. Cortical atrophy. 2. No acute intracranial abnormality . Tube Removal 04/08/18 00:00 CONCLUSION: 1. Uncomplicated Permcath removal. Physical Exam: GENERAL: awake and alert, NAD SKIN: Cool and dry. No generalized rash, dry skin. HEAD: Atraumatic. Normocephalic. No temporal wasting, or tenderness. EYES: [place] conjunctiva. No petechia or hemorrhage. Pupils equal, round and reactive to light. Extraocular movements full and intact. No scleral icterus. No injection or drainage. EARS, NOSE AND THROAT: Nose without bleeding or purulent nasal discharge. Mucous membranes pink and moist. Thrush better NECK: Trachea midline. Supple and not tender, no meningeal signs CARDIOVASCULAR: Regular rate and rhythm. No murmurs, rubs or gallops heard RESPIRATORY: Clear to auscultation. Breath sounds equal bilaterally. No rales , wheezing or rhonchi ABDOMEN: Soft, flat, not distended, min tender, not guarding, no rebound. Has healed midline incisions. EXTREMITIES: No clubbing, cyanosis, or edema. No calf tenderness. Well perfused and warm. NEUROLOGICAL: Non-focal. PSYCHIATRIC: Normal affect, calm and cooperative. LINE: No evidence of infection Assessment and Plan - Plan Impression Febrile illness, non-localizing, temps better - workup no infection found Hx chronic abdominal pain, N/V, diarrhea, Dumping syndrome, worse - has had multiple exploratory laparotomy, last one December - CT A/P no abscess, no obstruction Leukocytosis, etiology? - better - not on any antimicrobial agent - so far no new infection identified - imaging negative - EBV, CMV negative - ?reactive to ongoing GI process S/P renal transplant June 2017, on Prograf Recommendation Started on Augmentin this weekend - was on Bactrim previously - symptoms better - plan 14 days D/C plans noted for today D/W Dr Patel D/W Dr Bennett Spoke with RN
[2018-04-11] MEDS: Diphenoxylate/Atropine 2.5/0.025 MG Tablet PO SCH ×2 (10:25→12:18)
[2018-04-11] MEDS: Carvedilol 12.5 MG Tablet PO SCH (10:25)
[2018-04-11] MEDS: Calcium Carbonate 500 MG Tablet PO SCH (10:25)
[2018-04-11] MEDS: diazePAM 5 MG Tablet PO SCH (10:26)
[2018-04-11] MEDS: Nystatin Liq 500,000 UNIT/5 ML UDC SWISH-SWAL SCH ×2 (10:26→12:18)
[2018-04-11] MEDS: Amoxicillin/Clavulanate 500/125 MG Tablet PO SCH ×2 (10:28→12:08)
[2018-04-11] MEDS: Lipase/Protease/Amylase 24/76/120 DR Capsule PO SCH ×2 (10:28→11:52)
[2018-04-11] MEDS: Potassium Phos/Sodium Phos 250 MG Tablet PO SCH ×2 (10:28→12:18)
[2018-04-11] MEDS: Insulin Detemir Inj 1,000 UNIT/10 ML Vial SQ SCH (10:29)
[2018-04-11] MEDS: Heparin Central Flush 100 UNIT/ML 5 ML Vial IV.FLUSH SCH (10:29)
[2018-04-11] MEDS: Senna/Docusate Sodium 8.6/50 MG Tablet PO SCH (10:30)
[2018-04-11] MEDS: Enoxaparin Inj 60 MG/0.6 ML Syringe SQ SCH (11:14)
[2018-04-11] MEDS: predniSONE 10 MG Tablet PO SCH (11:14)
--- NOTE | 2018-04-11 11:54 | P.PNTS ---
Subjective Interval history: No new c/o. Chronic abd pain is at baseline (about 5/10) Physical Exam Vital signs: Vital Signs 04/10/18 12:00 04/10/18 13:00 04/10/18 14:00 Temperature Pulse Rate 77 70 75 Respiratory Rate Blood Pressure Pulse Oximetry 04/10/18 15:00 04/10/18 16:00 04/10/18 17:00 Temperature 98.1 F Pulse Rate 70 72 72 Respiratory Rate 19 Blood Pressure 105/66 Pulse Oximetry 99 04/10/18 18:00 04/10/18 19:00 04/10/18 20:00 Temperature 97.4 F L Pulse Rate 76 72 74 Respiratory Rate 16 Blood Pressure 115/58 L Pulse Oximetry 96 04/10/18 21:00 04/10/18 22:00 04/10/18 23:00 Temperature 97.7 F Pulse Rate 78 70 82 Respiratory Rate 16 Blood Pressure 119/60 Pulse Oximetry 94 L 04/11/18 00:00 04/11/18 01:07 04/11/18 02:00 Temperature Pulse Rate 75 80 82 Respiratory Rate Blood Pressure Pulse Oximetry 04/11/18 03:00 04/11/18 04:00 04/11/18 05:00 Temperature 97.7 F Pulse Rate 74 78 74 Respiratory Rate 16 Blood Pressure 122/62 Pulse Oximetry 94 L 04/11/18 06:00 Temperature Pulse Rate 76 Respiratory Rate Blood Pressure Pulse Oximetry Intake & Output 04/10/18 04/11/18 04/11/18 18:59 06:59 18:59 Intake Total 1200 / 1200 1672 / 1672 1000 / 1000 Output Total 400 / 400 900 / 900 Balance 800 / 800 772 / 772 1000 / 1000 Weight 60.5 kg Intake: IV 1000 / 1000 1000 / 1000 NS Inj 1,000 ML @ 125 mls/hr IV 1000 / 1000 1000 / 1000 .CONT .Q8H [facility] Rx#:[id number] Oral 1200 / 1200 672 / 672 Output: Urine 400 / 400 900 / 900 Other: Date of Last Bowel Movement 04/10/18 04/10/18 # Bowel Movements 3 1 - Constitutional no acute distress - Routine HEENT Exam Head: Present: normocephalic, atraumatic Eye: Present: EOMI ENT: Present: mucous membranes moist - Routine Neck Exam Present: supple, full ROM - Routine Respiratory Exam Present: CTA bilaterally - Routine Cardiovascular Exam Present: RRR, S1, S2 - Routine Abdominal Exam Present: soft, normoactive bowel sounds - Routine Extremities Exam Present: pulses intact - Routine Skin Exam Present: intact - Routine Neurological Exam Present: alert, oriented X3 - Detailed Neurological Exam: Coma Scale Verbal Response: Oriented - Routine Psychiatric Exam Present: normal affect, normal thought process Results - Labs CBC & Chem 7: 04/11/18 05:12 04/11/18 05:12 Laboratory Results - last 24 hr 04/10/18 04/10/18 04/10/18 13:00 13:00 13:00 WBC 13.3 H RBC 3.38 L Hgb 9.4 L Hct 29.3 L MCV 86.6 MCH 27.8 MCHC 32.1 RDW 16.4 Plt Count 769 H MPV 7.9 Neut % (Auto) 77.8 H Lymph % (Auto) 10.8 [place] % (Auto) 9.7 H Eos % (Auto) 1.2 Baso % (Auto) 0.5 Neut # (Auto) 10.4 H Lymph # (Auto) 1.4 [place] # (Auto) 1.3 H Eos # (Auto) 0.2 Baso # (Auto) 0.1 WBC Differential . Differential Comment Auto diff final Hematology Comments Sodium 127 L Potassium 7.0 H* D Chloride 100 Carbon Dioxide 20.7 L Anion Gap 6 BUN 28 H Creatinine 1.58 H Estimated GFR 34 L POC Glucose Random Glucose 144 H Calcium 9.4 Phosphorus 2.9 Magnesium 1.6 Tacrolimus 6.0 04/10/18 04/10/18 04/10/18 14:19 14:19 14:19 WBC 12.7 H RBC 3.75 L Hgb 10.6 L Hct 32.8 L MCV 87.4 MCH 28.3 MCHC 32.4 RDW 16.7 Plt Count 814 H MPV 8.4 Neut % (Auto) 81.2 H Lymph % (Auto) 9.8 [place] % (Auto) 7.9 Eos % (Auto) 0.9 Baso % (Auto) 0.2 Neut # (Auto) 10.3 H Lymph # (Auto) 1.2 [place] # (Auto) 1.0 H Eos # (Auto) 0.1 Baso # (Auto) 0.0 WBC Differential . Differential Comment Auto diff final Hematology Comments Sodium 132 L Potassium 5.2 H D Chloride 98 Carbon Dioxide 26.2 Anion Gap 8 BUN 28 H Creatinine 1.63 H Estimated GFR 33 L POC Glucose Random Glucose 111 H Calcium 9.7 Phosphorus Magnesium Tacrolimus 6.5 04/10/18 04/10/18 04/11/18 15:23 20:28 03:25 WBC RBC Hgb Hct MCV MCH MCHC RDW Plt Count MPV Neut % (Auto) Lymph % (Auto) [place] % (Auto) Eos % (Auto) Baso % (Auto) Neut # (Auto) Lymph # (Auto) [place] # (Auto) Eos # (Auto) Baso # (Auto) WBC Differential Differential Comment Hematology Comments Sodium Potassium Chloride Carbon Dioxide Anion Gap BUN Creatinine Estimated GFR POC Glucose 150 H 266 H 304 H Random Glucose Calcium Phosphorus Magnesium Tacrolimus 04/11/18 04/11/18 04/11/18 05:12 05:12 08:17 WBC 13.9 H RBC 3.09 L Hgb 8.8 L Hct 27.4 L MCV 88.6 MCH 28.6 MCHC 32.2 RDW 16.7 Plt Count 700 H MPV 9.0 Neut % (Auto) 77.0 H Lymph % (Auto) 8.9 L [place] % (Auto) 11.9 H Eos % (Auto) 0.8 Baso % (Auto) 1.4 Neut # (Auto) 10.7 H Lymph # (Auto) 1.2 [place] # (Auto) 1.7 H Eos # (Auto) 0.1 Baso # (Auto) 0.2 WBC Differential . Differential Comment Auto diff final Hematology Comments Sodium 132 L Potassium 4.8 Chloride 100 Carbon Dioxide 22.7 Anion Gap 9 BUN 26 H Creatinine 1.44 H Estimated GFR 38 L POC Glucose 303 H Random Glucose 284 H D Calcium 8.8 D Phosphorus 2.6 Magnesium 1.6 Tacrolimus Microbiology 04/08/18 15:30 Clean Catch Urine Urine Culture - Final Escherichia coli ESBL positive 04/08/18 11:00 Catheter Tip - Central Venous Line Wound Culture - Final No growth in 48 hours - Imaging Impressions Tube Removal 04/08/18 00:00 CONCLUSION: 1. Uncomplicated Permcath removal. Assessment and Plan - Assessment (1) Fever Code(s): R50.9 - Fever, unspecified Status: Acute (2) Renal transplant recipient Code(s): Z94.0 - Kidney transplant status Status: Acute (3) DM (diabetes mellitus) Code(s): E11.9 - Type 2 diabetes mellitus without complications Status: Acute (4) Abdominal pain Code(s): R10.9 - Unspecified abdominal pain Status: Acute - Plan 57 yof with complex medical/surgical history s/p LURKT in ID in 06/2017. Admitted with left flank pain and FUO. No obvious source of infection yet identified. TPN stopped during this admission. Peripheral IV placed. Mild leukocytosis. Central line removed by IR. Culture results negative. Thrush being treated-improved. On Nystatin S&S. Urine culture c/w ESBL E coli. On Augmentin. Appreciate ID input. Abd pain and nausea better. Appreciate GI input. Creat improved from yesterday although still above baseline. Patient strongly encouraged to drink 2-3 liters daily. She seemed to understand and agreed. UOP okay. Prograf level pending. Platelets stable. On anagrelide. Appreciate hematology-onc input. Calorie count WNL. Appreciate print project manager input. Plan discussed with patient and the RN. Blood sugars better. Will plan to consult endocrinology as an outpatient to assist with ongoing glucose management , since we reportedly don't have inpatient endocrinology services available. Don't think patient will do well with just po intake, without TPN supplementation, but she is insistent on trying and refusing to have the central line replaced and TPN resumed. We'll see how things go. Okay with discharge to home today. Spoke with patient about establishing care with a local roll up guider operator.Will see if case management can help with that. Also reached out to [facility], currently awaiting a return call. Will update them on her course. Discussed with patient that they need to continue to monitor her post-transplant progress. She seems to understand. Will have her f/ u in our clinic on Wednesday to reassess, then further visits will be scheduled as appropriate. As she has no current local care plan established, we will serve as her "bridge". This was d/w with patient who seemed to understand and agrees. Okay with discharge to [facility] with followup as discussed above. (1) Fever Qualifiers: Fever type: unspecified Qualified Code(s): R50.9 - Fever, unspecified
--- NOTE | 2018-04-11 13:30 | P.PNNP ---
Subjective Interval history: Patient with left sided abdominal discomfort, shot bowel, diarrhea, tolerated PO foods Physical Exam Vital signs: Vital Signs 04/10/18 14:00 04/10/18 15:00 04/10/18 16:00 Temperature 98.1 F Pulse Rate 75 70 72 Respiratory Rate 19 Blood Pressure 105/66 Pulse Oximetry 99 04/10/18 17:00 04/10/18 18:00 04/10/18 19:00 Temperature 97.4 F L Pulse Rate 72 76 72 Respiratory Rate 16 Blood Pressure 115/58 L Pulse Oximetry 96 04/10/18 20:00 04/10/18 21:00 04/10/18 22:00 Temperature Pulse Rate 74 78 70 Respiratory Rate Blood Pressure Pulse Oximetry 04/10/18 23:00 04/11/18 00:00 04/11/18 01:07 Temperature 97.7 F Pulse Rate 82 75 80 Respiratory Rate 16 Blood Pressure 119/60 Pulse Oximetry 94 L 04/11/18 02:00 04/11/18 03:00 04/11/18 04:00 Temperature 97.7 F Pulse Rate 82 74 78 Respiratory Rate 16 Blood Pressure 122/62 Pulse Oximetry 94 L 04/11/18 05:00 04/11/18 06:00 Temperature Pulse Rate 74 76 Respiratory Rate Blood Pressure Pulse Oximetry Intake & Output 04/10/18 04/11/18 04/11/18 18:59 06:59 18:59 Intake Total 1200 / 1200 1672 / 1672 1000 / 1000 Output Total 400 / 400 900 / 900 Balance 800 / 800 772 / 772 1000 / 1000 Weight 60.5 kg Intake: IV 1000 / 1000 1000 / 1000 NS Inj 1,000 ML @ 125 mls/hr IV 1000 / 1000 1000 / 1000 .CONT .Q8H [facility] Rx#:[id number] Oral 1200 / 1200 672 / 672 Output: Urine 400 / 400 900 / 900 Other: Date of Last Bowel Movement 04/10/18 04/10/18 # Bowel Movements 3 1 Narrative: GENERAL: No acute distress. Chronically ill appearing. CARDIOVASCULAR: Normal rate and regular rhythm without murmurs, gallops, or rubs. RESPIRATORY: Good respiratory efforts. Breath sounds equal and clear to auscultation bilaterally. GASTROINTESTINAL: Abdomen soft, mild tenderness to palpation in the suprapubic region. Normal active bowel sounds MUSCULOSKELETAL: Extremities without cyanosis, or edema. NEURO: Alert & Oriented x4 to person, place, time, situation. Moves all ext x4 PSYCH: Appropriate mood and affect. Assessment and Plan - Assessment (1) Acute renal failure Code(s): N17.9 - Acute kidney failure, unspecified Status: Acute (2) Fever Code(s): R50.9 - Fever, unspecified Status: Acute Qualifiers: Fever type: unspecified Qualified Code(s): R50.9 - Fever, unspecified (3) Renal transplant recipient Code(s): Z94.0 - Kidney transplant status Status: Acute (4) On total parenteral nutrition (TPN) Code(s): Z78.9 - Other specified health status Status: Acute (5) DM (diabetes mellitus) Code(s): E11.9 - Type 2 diabetes mellitus without complications Status: Acute (6) Abdominal pain Code(s): R10.9 - Unspecified abdominal pain Status: Acute - Plan Patient has acute renal failure with baseline creatinine around 0.9 currently at 1.2, Phosphorus and magnesium were replaced Creatinine was now 1.4, Prograf is 6.4 Thrush nystatin added Thrombocytosis platelets are climbing up hematology following Leukocytosis Tacrolimus dose being adjusted by Dr. Patel sigmoidoscopy done biopsy site of anastomosis Blood glucose fluctuate Monitor tacrolimus level pending Follow BMP Avoid nephrotoxins urine culture results noted.E coli ESBL 50, 75 k colonies, Augmentin started ID to follow and give recommendation. discharge follow up at [facility]
--- NOTE | 2018-04-11 15:13 | P.DS ---
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 Pt has h/o Renal Transplant in June 2017 in [place], [place] , w/ prolonged hospitalization due to multiple complications including Dumping Syndrome for which she in on TPN. States she was to a hospital in [place] in December 2017 and ultimately transferred to [place], [place] to undergo extensive abdominal surgery for "multiple anastomoses". Reports doing well until today when she developed Temp 100.3, called Transplant Surgeon and was referred to the ER. Notes left flank/LLQ pain, no nausea/vomiting, chronic diarrhea unchanged from baseline. No cough or chest pain. +Ward catheter in place, functioning well. On arrival, BP 141/80, HR 42, O2 sat 100% on RA, Temp 100.5. WBC 13.7. INR 1.0. Creatinine 1.21. Lactic Acid normal. UA negative for UTI. CXR with no acute findings. Dr. Collier, Transplant Surgeon in [place] consulted by ER physician, recommended admission for broad spectrum antibiotics w/ Zyvox/Zosyn. Patient update on day of discharge: Patient reports she is feeling great. She is eager to go home. We discussed outpatient follow-up at length and the need to keep up with her fluid intake. She voiced understanding.. DS: Diagnosis - Discharge Diagnosis (1) SIRS (systemic inflammatory response syndrome) Status: Acute (2) H/O kidney transplant Status: Acute (3) Abdominal pain Status: Acute (4) On total parenteral nutrition (TPN) Status: Acute (5) Renal insufficiency Status: Acute (6) DM (diabetes mellitus) Status: Acute DS: Medications - Discharge Medications Prescriptions: amoxicillin-pot clavulanate [Augmentin] 1 tab PO TID 13 Days #39 tab nystatin 5 ml SWISH-SWAL QID 10 Days #200 ml DS: Summary Hospital Course: 57 YOF with history of DM, dumping syndrome on TPN, chronic diarrhea, GERD, h/o splenectomy, gastroparesis, h/o DVT on SQ Lovenox, and h/o renal transplant 2017 admitted on 03/27 for evaluation of fever as recommended by her transplant surgeon in [place], [place]. Evaluation and treatment course detailed below: Acute kidney injury in a patient with history of renal transplant:Baseline creatinine around 0.9 - s/p LURKT June 2017 - Transplant surgeon followed the patient throughout the hospital stay. Her Prograf level were adjusted. Nephrology followed the patient as well. Her renal function fluctuate probably relating to inconsistent fluid intake. TPN were discontinued. -The patient is to follow-up with the transplant service as scheduled with repeat labs. Fever -resolved - CXR and U/A unremarkable on admission. Repeat urine growing E. coli ESBL. Patient reports history of ESBL E. coli. - BC negative - EBV, CMV, BK virus negative E. coli ESBL in the urine: - Patient complained of dysuria, hesitancy, urinary frequency, and suprapubic tenderness. Her symptoms resolved. -Urine culture came back today with E. coli ESBL - I discussed with ID Dr. Austin who recommended Augmentin 500 mg TID x10ydly. Patient tolerated the medication. She is discharged on the same. Thrombocytosis - Hematology following - Pt reportedly worked up at [facility] and was found to be reactive - History of VTE - Peripheral smear shows moderate normochromic normocytic anemia and thrombocytopenia - Awaiting results of CALR, MPL - JAK2 mutation negative -Continue anagrelide Chronic abdominal pain - s/p multiple bowel resections and prior surgeries as well as known history of gastroparesis - CT A/P 03/27 showing: Status post cholecystectomy with prominent intrahepatic pneumobilia. Numerous subcentimeter hypodensity lesions in both lobes of the liver, most prominently in the right lobe. Although nonspecific, cannot exclude hepatic abscesses in the appropriate clinical setting. Comparisons with prior CT examinations would be beneficial to determine chronicity. 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 Mild hydronephrosis of the transplant kidney without perirenal fluid collections or radiopaque calculi. Status post near total colectomy with multiple suture lines in the left upper quadrant. Several loops of small bowel in the left upper quadrant are marginally dilated without definitive evidence for bowel obstruction - Repeat 04/04 with same findings as well as new stomach distention and mild bibasilar atelectasis - GI consulted and patient underwent EGD and sigmoidoscopy 04/05 showing esophagitis, retained gastric fluids and food residue in the stomach, hyperemic and inflamed prior surgical anastomosis, internal hemorrhoids - Biopsy of sigmoid revealed moderately active chronic colitis with nonspecific features - Continue Donovan Macias Lomotil - [employer] following, TPN discontinued, recommended PO diet. Patient states she does not normally eat 3 meals a day. She refused to consider TPN again at this time. She was advised on the importance of adequate nutrition and fluids. Type II DM - Sugars are very labile and patient does not eat consistently. - Continue with home regimen on discharge. She was counseled to hold insulin if she is not eating. She was advised on the need to follow-up with PCP for referral to Endocrinology. Oral thrush - Continue Nystatin Chronic pain -Patient did continue her home medications on discharge. HLD - Continue home statin History of DVT - Doppler U/S 04/04 showed nonocclusive small-volume thrombus involving the distal superficial femoral vein and peroneal vein on the left, possibly residual from known DVT - Continue Lovenox - Time Spent with Patient Total time spent providing and/or coordinating discharge services: Greater than 30 minutes - Quality: VTE Deep Vein Thrombosis/Pulmonary Embolism Present on Admission: No Exam Vital signs: Vital Signs 04/10/18 16:00 04/10/18 17:00 04/10/18 18:00 Temperature Pulse Rate 72 72 76 Respiratory Rate Blood Pressure Pulse Oximetry 04/10/18 19:00 04/10/18 20:00 04/10/18 21:00 Temperature 97.4 F L Pulse Rate 72 74 78 Respiratory Rate 16 Blood Pressure 115/58 L Pulse Oximetry 96 04/10/18 22:00 04/10/18 23:00 04/11/18 00:00 Temperature 97.7 F Pulse Rate 70 82 75 Respiratory Rate 16 Blood Pressure 119/60 Pulse Oximetry 94 L 04/11/18 01:07 04/11/18 02:00 04/11/18 03:00 Temperature 97.7 F Pulse Rate 80 82 74 Respiratory Rate 16 Blood Pressure 122/62 Pulse Oximetry 94 L 04/11/18 04:00 04/11/18 05:00 04/11/18 06:00 Temperature Pulse Rate 78 74 76 Respiratory Rate Blood Pressure Pulse Oximetry 04/11/18 07:00 04/11/18 08:00 04/11/18 09:00 Temperature 98.4 F Pulse Rate 79 80 80 Respiratory Rate 18 Blood Pressure 141/73 H Pulse Oximetry 96 04/11/18 10:00 04/11/18 11:00 04/11/18 12:00 Temperature 98.2 F Pulse Rate 89 81 88 Respiratory Rate 17 Blood Pressure 157/77 H Pulse Oximetry 99 04/11/18 13:00 04/11/18 14:00 Temperature Pulse Rate 86 80 Respiratory Rate Blood Pressure Pulse Oximetry Intake & Output 04/10/18 04/11/18 04/11/18 18:59 06:59 18:59 Intake Total 1200 / 1200 1672 / 1672 1000 / 1000 Output Total 400 / 400 900 / 900 Balance 800 / 800 772 / 772 1000 / 1000 Weight 60.5 kg Intake: IV 1000 / 1000 1000 / 1000 NS Inj 1,000 ML @ 125 mls/hr IV 1000 / 1000 1000 / 1000 .CONT .Q8H [facility] Rx#:[id number] Oral 1200 / 1200 672 / 672 Output: Urine 400 / 400 900 / 900 Other: Date of Last Bowel Movement 04/10/18 04/10/18 04/10/18 # Bowel Movements 3 1 Narrative: GENERAL: No acute distress. CARDIOVASCULAR: Normal rate and regular rhythm without murmurs, gallops, or rubs. RESPIRATORY: Good respiratory efforts. Breath sounds equal and clear to auscultation bilaterally. GASTROINTESTINAL: Abdomen soft, nontender, nondistended. Normal active bowel sounds MUSCULOSKELETAL: Extremities without cyanosis, or edema. NEURO: Alert & Oriented x4 to person, place, time, situation. Moves all ext x4 PSYCH: Appropriate mood and affect. Results Procedures completed during hospitalization: None Labs on day of discharge: Labs from last 24 hours 04/11/18 04/11/18 04/11/18 11:46 10:30 08:17 WBC RBC Hgb Hct MCV MCH MCHC RDW Plt Count MPV Neut % (Auto) Lymph % (Auto) [place] % (Auto) Eos % (Auto) Baso % (Auto) Neut # (Auto) Lymph # (Auto) [place] # (Auto) Eos # (Auto) Baso # (Auto) WBC Differential Differential Comment Sodium Potassium Chloride Carbon Dioxide Anion Gap BUN Creatinine Estimated GFR POC Glucose 254 H 303 H Random Glucose Calcium Phosphorus Magnesium Tacrolimus 6.4 04/11/18 04/11/18 04/11/18 05:12 05:12 03:25 WBC 13.9 H RBC 3.09 L Hgb 8.8 L Hct 27.4 L MCV 88.6 MCH 28.6 MCHC 32.2 RDW 16.7 Plt Count 700 H MPV 9.0 Neut % (Auto) 77.0 H Lymph % (Auto) 8.9 L [place] % (Auto) 11.9 H Eos % (Auto) 0.8 Baso % (Auto) 1.4 Neut # (Auto) 10.7 H Lymph # (Auto) 1.2 [place] # (Auto) 1.7 H Eos # (Auto) 0.1 Baso # (Auto) 0.2 WBC Differential . Differential Comment Auto diff final Sodium 132 L Potassium 4.8 Chloride 100 Carbon Dioxide 22.7 Anion Gap 9 BUN 26 H Creatinine 1.44 H Estimated GFR 38 L POC Glucose 304 H Random Glucose 284 H D Calcium 8.8 D Phosphorus 2.6 Magnesium 1.6 Tacrolimus 04/10/18 04/10/18 04/10/18 20:28 15:23 14:19 WBC RBC Hgb Hct MCV MCH MCHC RDW Plt Count MPV Neut % (Auto) Lymph % (Auto) [place] % (Auto) Eos % (Auto) Baso % (Auto) Neut # (Auto) Lymph # (Auto) [place] # (Auto) Eos # (Auto) Baso # (Auto) WBC Differential Differential Comment Sodium Potassium Chloride Carbon Dioxide Anion Gap BUN Creatinine Estimated GFR POC Glucose 266 H 150 H Random Glucose Calcium Phosphorus Magnesium Tacrolimus 6.5 04/10/18 04/10/18 14:19 13:00 WBC RBC Hgb Hct MCV MCH MCHC RDW Plt Count MPV Neut % (Auto) Lymph % (Auto) [place] % (Auto) Eos % (Auto) Baso % (Auto) Neut # (Auto) Lymph # (Auto) [place] # (Auto) Eos # (Auto) Baso # (Auto) WBC Differential Differential Comment Sodium 132 L Potassium 5.2 H D Chloride 98 Carbon Dioxide 26.2 Anion Gap 8 BUN 28 H Creatinine 1.63 H Estimated GFR 33 L POC Glucose Random Glucose 111 H Calcium 9.7 Phosphorus Magnesium Tacrolimus 6.0 - Impressions ITS Impressions Chest X-Ray 03/27/18 19:28 CONCLUSION: No acute cardiopulmonary disease. There is no evidence of pneumonia. Renal Ultrasound 03/29/18 00:00 CONCLUSION: 1. Very mild hydronephrosis of the transplant kidney. 2. 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 Abdomen X-Ray 03/30/18 14:53 CONCLUSION: No dilated loops of bowel observed. Abdomen/Pelvis CT 04/04/18 00:00 CONCLUSION: 1. The only new findings when compared to prior CT on 03/27/2018 include distention of the stomach and mild bibasilar atelectasis. Chest CT 04/04/18 00:00 CONCLUSION: 1. Increase in subsegmental basilar atelectasis since March 27. No new effusion. Upper lungs clear. No new adenopathy. Venous Doppler Study 04/04/18 13:29 CONCLUSION: 1. Nonocclusive small volume thrombus involving the distal superficial femoral vein and peroneal vein on the left. This could relate to residual chronic thrombus from the patient's prior DVT. 2. No thrombus involving the right lower extremity. 3. Nothing to account for bilateral lower extremity swelling. Head CT 04/07/18 00:00 CONCLUSION: 1. Cortical atrophy. 2. No acute intracranial abnormality . Tube Removal 04/08/18 00:00 CONCLUSION: 1. Uncomplicated Permcath removal. Discharge Plan - Discharge Disposition Patient Disposition: 01 Discharge Home - Discharge Condition Condition: Stable - Discharge Order Discharge Orders: Discharge Order (Routine); Ordered 04/11/18 Ordered By: Johana Cochran Nephrology Clear for Discharge (Routine); Ordered 04/11/18 Ordered By: Miki Hughes - Physicians Team Primary Care Provider: NON STAFF,PROVIDER Attending Provider: Johana Cochran Other Providers: Gilberto Patel MD ; Pam Austin MD ; Miki Hughes MD ; Catina Wallace ; Fan Tovar MD ; Miller Pollard MD ; Beth Parekh, Agency
[2018-04-11 15:16] VITALS: BP 133/72; PULSE 81; RESP 18; TEMP 98.4; O2SAT 100
== END 2018-04-11 16:41 | disposition home or self-care (01) ==
LOC: NEPC 18:15 → NEDA 22:43 → HCIN 23:55 → N03 03-30 13:08 → HCVI 03-31 22:30 → HCPC 04-02 13:24
PROVIDERS: ADMIT Family Medicine; ATTEND Family Medicine
PROC: PANENDO (2018-04-05 11:18)

== ENCOUNTER 2018-04-22 08:53 | Inpatient (IN) ==
[2018-04-22] MEDS ORDERED: Sod Chloride 0.9% Inj 1,000 ML IV.SIG ONE (09:33)
--- NOTE | 2018-04-22 09:38 | ED ---
HPI General Chief complaint: Urogenital-Female Stated complaint: Medical Time Seen by Provider: 04/22/18 09:16 History of Present Illness HPI narrative: The patient was seen and examined in the presence of the nurse. This patient is worried about being dehydrated. She has history of renal transplant in June 2017. She has had a couple of days of decreased urine output. She has nausea and retching. She has chronic diarrhea. Denies fever. She also complains of some pain in the epigastrium. Some severity is moderate. She spoke with her transplant surgeon who advised her to come into the ER. Severity is moderate. No alleviating factors. Symptoms exacerbated by her dumping syndrome and multiple abdominal surgeries. Related Data Home Medications Medication Instructions Recorded Confirmed Phenergan 25 mg PO Q6-8H PRN 03/27/18 03/27/18 acetaminophen 650 mg PO Q4H PRN 03/27/18 03/27/18 anagrelide 0.5 mg PO Q12H 03/27/18 03/27/18 atorvastatin 20 mg PO DAILY 03/27/18 03/27/18 azathioprine [Imuran] 100 mg PO DAILY 03/27/18 03/27/18 belatacept 10 mg/kg IV QMONTH 03/27/18 03/27/18 calcium carbonate 1 tab PO BID 03/27/18 03/27/18 carvedilol 12.5 mg PO BID 03/27/18 03/27/18 diphenoxylate-atropine [Lomotil] 1 tab PO TID 03/27/18 03/27/18 enoxaparin 40 mg SUBCUT DAILY 03/27/18 03/27/18 ergocalciferol (vitamin D2) 50,000 unit PO 3XW 03/27/18 03/27/18 hydromorphone 2 mg PO Q6H PRN 03/27/18 03/27/18 insulin glargine 12 unit SUBCUT QNOON 03/27/18 03/27/18 insulin lispro 1 sliding scale dose SUBCUT UD 03/27/18 03/27/18 [id number] [Creon] 1 cap PO TIDAC 03/27/18 03/27/18 ondansetron 4 mg PO Q8H PRN 03/27/18 03/27/18 pantoprazole 40 mg PO BID 03/27/18 03/27/18 prednisone 10 mg PO DAILY 03/27/18 03/27/18 prochlorperazine maleate 10 mg PO Q6-8H PRN 03/27/18 03/27/18 [Compazine] tacrolimus 0.5 mg PO DAILY 03/27/18 03/27/18 tacrolimus [Prograf] 4 mg PO Q12H 03/27/18 03/27/18 Previous Rx's Medication Instructions Recorded amoxicillin-pot clavulanate 1 tab PO TID 13 Days #39 tab 04/11/18 [Augmentin] Allergies Allergy/AdvReac Type Severity Reaction Status Date / Time metronidazole [From Flagyl] Allergy Mild Hives Verified 03/27/18 18:27 oxycodone Allergy Mild Redness of Verified 03/27/18 18:27 Skin oxytetracycline Allergy Mild Hives Verified 03/27/18 18:27 [From Terramycin] fentanyl Allergy Edema Verified 04/05/18 17:07 filgrastim [From Neupogen] Allergy Anaphylaxis Verified 04/05/18 10:48 Review of Systems ROS: all other systems reviewed are negative [facility] Family History Family History Other No family history of cardiac disease Social History Social History Substance History: No History of Abuse Second Hand Smoke Exposure: No Smoking Status: Never smoker Tobacco Type: Cigarettes Smoking End Date: 2008 (smoke / PPD off and on for 10 years before quitting in 2008) How Often Do You Have a Drink Containing Alcohol: Never Hx Recent Travel: Yes (was in [place] then [place]) Recent Travel in [facility] within the Last 8 Weeks: No Recent Out of Country Travel within the Last 8 Weeks: No Exam Narrative Exam Narrative: GENERAL: Well-nourished, well-developed patient in no apparent distress. SKIN: Focused skin assessment reveals no rash and nodules. Skin is Warm and dry. HEAD: Atraumatic. Normocephalic. EYES: Pupils equal and round. No scleral icterus. No injection or drainage. ENT: No nasal bleeding or discharge. Mucous membranes pink and moist. NECK: Trachea midline. No JVD. CARDIOVASCULAR: Regular rate and rhythm. No murmur appreciated. RESPIRATORY: No accessory muscle use. Clear to auscultation. Breath sounds equal bilaterally. GASTROINTESTINAL: Abdomen soft, epigastrium is tender without rebound or guarding. Multiple abdominal scars noted. Hepatic and splenic margins not palpable. MUSCULOSKELETAL: No obvious deformities. No clubbing. No cyanosis. No edema. NEUROLOGICAL: Awake and alert. No obvious cranial nerve deficits. Motor grossly within normal limits. Normal speech. PSYCHIATRIC: Appropriate mood and affect; insight and judgment normal. Course Initial Documented Vital Signs Temperature 98.8 F 04/22/18 08:56 Pulse Rate 97 H 04/22/18 08:56 Respiratory Rate 16 04/22/18 08:56 Blood Pressure 136/88 04/22/18 08:56 Pulse Oximetry 100 04/22/18 08:56 Last Documented Vital Signs Temperature 98.8 F 04/22/18 08:56 Pulse Rate 97 H 04/22/18 08:56 Respiratory Rate 16 04/22/18 08:56 Blood Pressure 136/88 04/22/18 08:56 Pulse Oximetry 100 04/22/18 08:56 Medical Decision Making MDM Narrative Medical decision making narrative: This is a 57-year-old female with history of multiple medical problems and multiple surgeries with transplant in June of this year. She complains of dehydration issues. Vascular access team was placed in ultrasound-guided peripheral IV. I gave her a liter of saline and IV Zofran. Labs have been run. Patient has some hyponatremia and renal insufficiency. Urinalysis suggest infection so I gave a dose of Fortaz. CBC is noted as well. I reviewed with the transplant surgeon. Patient will be admitted and he request CT of abdomen and pelvis be done Medical Screen Exam Complete: Yes Emergency Medical Condition: Yes Differential Diagnosis Differential Diagnosis: Dehydration, electrolyte abnormality, UTI, rejection of transplant Medical Records Medical records reviewed: Yes I reviewed the patient's medical records. Reviewed her nephrology evaluation from 04/18/2018 Lab Data Lab results reviewed: Yes I reviewed the patient's lab results. Lab results narrative: Leukocytosis and anemia and renal insufficiency noted Result diagrams: 04/22/18 10:05 04/22/18 10:05 Lab Results 04/22/18 04/22/18 04/22/18 Range/Units 09:50 10:05 10:05 WBC 17.6 H (4.0-11.0) th/mm3 RBC 3.49 L (4.00-5.30) mil/mm3 Hgb 9.7 L (11.6-15.3) gm/dL Hct 30.6 L (35.0-46.0) % MCV 87.7 (80.0-100.0) fL MCH 27.7 (27.0-34.0) pg MCHC 31.6 L (32.0-36.0) % RDW 17.2 (11.6-17.2) % Plt Count 739 H D (150-450) th/mm3 MPV 9.5 (7.0-11.0) fL Neut % (Auto) 85.4 H (16.0-70.0) % Lymph % (Auto) 2.7 L (9.0-44.0) % [place] % (Auto) 10.7 H (0.0-8.0) % Eos % (Auto) 0.7 (0.0-4.0) % Baso % (Auto) 0.5 (0.0-2.0) % Neut # (Auto) 15.1 H (1.8-7.7) th/mm3 Lymph # (Auto) 0.5 L (1.0-4.8) th/mm3 [place] # (Auto) 1.9 H (0.0-0.9) th/mm3 Eos # (Auto) 0.1 (0.0-0.4) th/mm3 Baso # (Auto) 0.1 (0.0-0.2) th/mm3 WBC Differential . Differential Comment Auto diff final Sodium 131 L (136-145) meq/L Potassium 4.8 (3.5-5.1) meq/L Chloride 101 (98-107) meq/L Carbon Dioxide 21.0 (21.0-32.0) meq/L Anion Gap 9 (5-15) meq/L BUN 29 H (7-18) mg/dL Creatinine 1.66 H (0.50-1.00) mg/dL Estimated GFR 32 L (>89) mL/min Random Glucose 235 H (74-106) mg/dL Calcium 10.3 H (8.5-10.1) mg/dL Phosphorus Magnesium Total Bilirubin 0.3 (0.2-1.0) mg/dL AST 16 (15-37) U/L ALT 20 (10-53) U/L Alkaline Phosphatase 242 H (45-117) U/L Total Protein 7.7 (6.4-8.2) g/dL Albumin 3.1 L (3.4-5.0) g/dL Lipase 19 L (73-393) U/L Urine Color Yellow (Yellw/Straw) Urine Clarity Cloudy H (Clear) Urine pH 5.0 (5.0-8.5) Ur Specific [place] 1.022 (1.002-1.035) Urine Protein 30 H (Neg-Trace) mg/dL Urine Glucose (UA) 500 or greater (Negative) mg/dL Urine Ketones Trace H (Negative) mg/dL Urine Occult Blood Negative (Negative) Urine Nitrate Negative (Negative) Urine Bilirubin Negative (Negative) Urine Urobilinogen 2.0 H (Less than 2) mg/dL Ur Leukocyte Esterase Moderate H (Negative) Urine RBC 1 (0-3) /hpf Urine WBC 166 H (0-5) /hpf Urine WBC Clumps Many H (None) Ur Squamous Epith Cells 2 (0-5) /hpf Urine Bacteria Many H (None) /hpf Hyaline Casts 9 (0-3) /lpf Micro UA Comment Culture indicated Ur Microscopic Review Not Reportable Urine Culture Comments Culture indicated 04/22/18 04/22/18 Range/Units 10:05 10:05 WBC (4.0-11.0) th/mm3 RBC (4.00-5.30) mil/mm3 Hgb (11.6-15.3) gm/dL Hct (35.0-46.0) % MCV (80.0-100.0) fL MCH (27.0-34.0) pg MCHC (32.0-36.0) % RDW (11.6-17.2) % Plt Count (150-450) th/mm3 MPV (7.0-11.0) fL Neut % (Auto) (16.0-70.0) % Lymph % (Auto) (9.0-44.0) % [place] % (Auto) (0.0-8.0) % Eos % (Auto) (0.0-4.0) % Baso % (Auto) (0.0-2.0) % Neut # (Auto) (1.8-7.7) th/mm3 Lymph # (Auto) (1.0-4.8) th/mm3 [place] # (Auto) (0.0-0.9) th/mm3 Eos # (Auto) (0.0-0.4) th/mm3 Baso # (Auto) (0.0-0.2) th/mm3 WBC Differential Differential Comment Sodium (136-145) meq/L Potassium (3.5-5.1) meq/L Chloride (98-107) meq/L Carbon Dioxide (21.0-32.0) meq/L Anion Gap (5-15) meq/L BUN (7-18) mg/dL Creatinine (0.50-1.00) mg/dL Estimated GFR (>89) mL/min Random Glucose (74-106) mg/dL Calcium (8.5-10.1) mg/dL Phosphorus Cancelled Magnesium Cancelled Total Bilirubin (0.2-1.0) mg/dL AST (15-37) U/L ALT (10-53) U/L Alkaline Phosphatase (45-117) U/L Total Protein (6.4-8.2) g/dL Albumin (3.4-5.0) g/dL Lipase (73-393) U/L Urine Color (Yellw/Straw) Urine Clarity (Clear) Urine pH (5.0-8.5) Ur Specific [place] (1.002-1.035) Urine Protein (Neg-Trace) mg/dL Urine Glucose (UA) (Negative) mg/dL Urine Ketones (Negative) mg/dL Urine Occult Blood (Negative) Urine Nitrate (Negative) Urine Bilirubin (Negative) Urine Urobilinogen (Less than 2) mg/dL Ur Leukocyte Esterase (Negative) Urine RBC (0-3) /hpf Urine WBC (0-5) /hpf Urine WBC Clumps (None) Ur Squamous Epith Cells (0-5) /hpf Urine Bacteria (None) /hpf Hyaline Casts (0-3) /lpf Micro UA Comment Ur Microscopic Review Urine Culture Comments Discharge Plan Discharge Disposition Patient Disposition: 30 Still Patient Discharge Details Diagnosis: Abdominal pain, Renal transplant recipient, Acute dehydration Physicians Team ED Provider: Carlos Nguyen Primary Care Provider: UNKNOWN, Other Providers: Gilberto Patel Rxs /Orders / Referrals /Forms Prescriptions: No Action anagrelide 0.5 mg Capsule 0.5 mg PO Q12H RF: 0 prednisone 10 mg Tablet 10 mg PO DAILY RF: 0 atorvastatin 20 mg Tablet 20 mg PO DAILY RF: 0 carvedilol 12.5 mg Tablet 12.5 mg PO BID RF: 0 diphenoxylate-atropine [Lomotil] 2.5-0.025 mg Tablet 1 tab PO TID RF: 0 prochlorperazine maleate [Compazine] 10 mg Tablet 10 mg PO Q6-8H PRN (Reason: Nausea And Vomiting) RF: 0 acetaminophen 650 mg Tablet Extended Release 650 mg PO Q4H PRN (Reason: Pain) RF: 0 pantoprazole 40 mg Tablet,Delayed Release (Dr/Ec) 40 mg PO BID RF: 0 ergocalciferol (vitamin D2) 50,000 unit Capsule 50,000 unit PO 3XW RF: 0 ondansetron 4 mg Tablet,Disintegrating 4 mg PO Q8H PRN (Reason: Nausea And Vomiting) RF: 0 tacrolimus [Prograf] 1 mg Capsule 4 mg PO Q12H RF: 0 tacrolimus 0.5 mg Capsule 0.5 mg PO DAILY RF: 0 enoxaparin 40 mg/0.4 mL Syringe 40 mg SUBCUT DAILY RF: 0 [id number] [Creon] 24,000-76,000 -120,000 unit Capsule,Delayed Release(Dr/Ec) 1 cap PO TIDAC RF: 0 Phenergan 25 mg PO Q6-8H PRN (Reason: Nausea) RF: 0 calcium carbonate 1 tab PO BID RF: 0 insulin glargine 100 unit/mL Solution 12 unit SUBCUT QNOON RF: 0 azathioprine [Imuran] 50 mg Tablet 100 mg PO DAILY RF: 0 hydromorphone 2 mg Tablet 2 mg PO Q6H PRN (Reason: Diarrhea) RF: 0 insulin lispro 100 unit/mL Cartridge 1 sliding scale dose SUBCUT UD RF: 0 belatacept 250 mg Recon Soln 10 mg/kg IV QMONTH RF: 0 amoxicillin-pot clavulanate [Augmentin] 500-125 mg Tablet 1 tab PO TID 13 Days Qty: 39 RF: 0 Discharge Interventions Interventions: Vital Signs Last Done: 04/22/18 08:59 Status ED Status: With Doctor
[2018-04-22 10:05] LABS: Bacteria,Urine Many /hpf; Bilirubin,Urine Negative (Negative); Clarity,Urine Cloudy (Clear); Color,Urine Yellow (Yellw/Straw); Glucose,Urine (UA) 500 or Greater mg/dL (Negative); Hyaline Casts,Urine 9 /lpf (0-3); Leukocyte Esterase,Urine Moderate (Negative); Nitrite,Urine Negative (Negative); Specific Gravity,Urine 1.022 (1.002-1.035); Squamous Epithelial Cell,Urine 2 /hpf (0-5)
[2018-04-22 10:18] LABS: Baso # (Auto) 0.1 th/mm3 (0.0-0.2); Baso % (Auto) 0.5 % (0.0-2.0); Eos # (Auto) 0.1 th/mm3 (0.0-0.4); Eos % (Auto) 0.7 % (0.0-4.0); Hematocrit 30.6 % (35.0-46.0); Hemoglobin 9.7 gm/dL (11.6-15.3); Lymph # (Auto) 0.5 th/mm3 (1.0-4.8); Lymph % (Auto) 2.7 % (9.0-44.0); Mean Corpuscular HGB Conc 31.6 % (32.0-36.0); Mean Corpuscular Hemoglobin 27.7 pg (27.0-34.0); Mean Corpuscular Volume 87.7 fL (80.0-100.0); Mean Platelet Volume 9.5 fL (7.0-11.0); Mono # (Auto) 1.9 th/mm3 (0.0-0.9); Mono % (Auto) 10.7 % (0.0-8.0); Neut # (Auto) 15.1 th/mm3 (1.8-7.7); Neut % (Auto) 85.4 % (16.0-70.0); Platelet Count 739 th/mm3 (150-450); Red Blood Count 3.49 mil/mm3 (4.00-5.30); Red Cell Distribution Width 17.2 % (11.6-17.2); White Blood Count 17.6 th/mm3 (4.0-11.0)
[2018-04-22 10:34] LABS: Alanine Aminotransferase 20 U/L (10-53); Albumin 3.1 g/dL (3.4-5.0); Anion Gap 9 meq/L (5-15); Aspartate Aminotransferase 16 U/L (15-37); Blood Urea Nitrogen 29 mg/dL (7-18); Calcium 10.3 mg/dL (8.5-10.1); Chloride 101 meq/L (98-107); Glomerular Filtration Rate 32 mL/min (>89); Glucose,Random 235 mg/dL (74-106); Lipase 19 U/L (73-393); Potassium 4.8 meq/L (3.5-5.1); Sodium 131 meq/L (136-145)
[2018-04-22 10:37] LABS: Alkaline Phosphatase 242 U/L (45-117); Total Protein 7.7 g/dL (6.4-8.2)
[2018-04-22] MEDS ORDERED: Bisacodyl 10 MG Supp RECTAL PRN (11:20)
[2018-04-22] MEDS: Sod Chloride 0.9% Inj 1,000 ML IV.CONT SCH ×2 (11:54→22:37)
[2018-04-22 12:09] LABS: Magnesium 1.7 mg/dL (1.5-2.5); Phosphorus 2.1 mg/dL (2.5-4.9)
--- NOTE | 2018-04-22 12:12 | P.CONTS ---
History of Present Illness Service: Transplant Surgery Consult date: 04/22/18 Requesting Physician: Sue Brian Reason for Consult: Elevated creatinine and UTI in kidney transplant patient Primary Care Provider: UNKNOWN Chief Complaint: Abd pain, decreased urine output History of Present Illness: 57 yof with complex past surgical history, with extensive abd sugeries as outlined in my consult form 03/27/18. Was recently admitted on 03/27/18 with fever and left flank pain. discharged to home on 04/11/18. Post-discharge, she continued antibiosis for a UTI. Was feeling okay by her report, then yesterday she felt "out of it", then today awakended with epigastric pain and noticed that her urine output was lower than usual. Called the answering service and came to the ED after being advised to do so. Review of Systems Constitutional: Reports fatigue, Denies anorexia, Denies body ache(s), Denies chills, Denies daytime sleepiness, Denies excessive sweating, Denies fever(s), Denies headache(s), Denies increased appetite, Denies lack of energy, Denies malaise, Denies night sweats, Denies weakness, Denies weight gain, Denies weight loss, Denies other Comments: generalized fatigue. Feels tired all the time, lately Eyes: Denies blind spots, Denies blurry vision, Denies bulging eyes, Denies change in vision, Denies double vision, Denies discharge, Denies dry eyes, Denies floaters, Denies irritation, Denies itchy eyes, Denies loss of vision, Denies pain, Denies requires corrective lenses, Denies sensitivity to light, Denies other Ears, Nose, Mouth, and Throat: Denies abnormal hearing, Denies bleeding gums, Denies bad breath, Denies change in voice, Denies dental pain, Denies difficulty swallowing, Denies dizziness, Denies dry mouth, Denies ear discharge , Denies ear pain, Denies facial pain, Denies headache(s), Denies hearing loss, Denies hoarseness, Denies lip swelling, Denies nosebleed, Denies mouth lesions, Denies mouth pain, Denies nasal congestion, Denies nasal discharge, Denies nasal obstruction, Denies nasal trauma, Denies neck lump, Denies neck pain, Denies nose pain, Denies pain with swallowing, Denies poor balance, Denies post nasal drip, Denies ringing in the ears, Denies sinus pain, Denies sinus pressure , Denies sore throat, Denies throat swelling, Denies tongue swelling, Denies other Cardiovascular: Reports chest pain with activity (has retrosternal and left sided chest pain, every day), Reports shortness of breath, Denies chest pain, Denies chest pain at rest, Denies excessive sweating, Denies fainting, Denies fast heart rate, Denies foot swelling, Denies generalized swelling, Denies irregular heart rhythm, Denies leg pain with activity, Denies leg sores, Denies leg swelling, Denies lightheadedness, Denies radiating jaw, neck or arm pain, Denies rapid, pounding, or irregular heartbeat, Denies shortness of breath with activity, Denies shortness of breath when lying down, Denies shortness of breath causing sudden awakening, Denies slow heart rate, Denies other Comments: Has shortness of breath with any activity Respiratory: Denies change in phlegm color, Denies chest congestion, Denies cough, Denies coughing up blood, Denies excessive phlegm production, Denies pain on inspiration, Denies pain with cough, Denies shortness of breath, Denies shortness of breath with activity, Denies snoring, Denies stridor, Denies wheezing, Denies other Gastrointestinal: Reports abdominal pain, Reports loose stools, Denies belching , Denies black, tarry stools, Denies bloating, Denies bright, red blood in stools, Denies change in bowel habits, Denies constant urge to pass stool, Denies change in stools, Denies coffee ground vomit, Denies constipation, Denies cramping, Denies difficulty swallowing, Denies excessive passing of gas, Denies feeling full early, Denies heartburn, Denies incontinent of stools, Denies nausea, Denies pain with swallowing, Denies vomiting, Denies vomiting blood, Denies other Comments: epigastric and seem sto radiate to her back. Has history of chronic looses stools. Genitourinary: Denies abnormal periods, Denies abnormal vaginal bleeding, Denies absent period, Denies bleeding between periods, Denies blood in urine, Denies difficulty starting urination, Denies difficulty urinating, Denies dribbling after urination, Denies frequent nighttime urination, Denies genital itching, Denies genital lesions, Denies heavy periods, Denies hot flashes, Denies light periods, Denies nipple discharge, Denies painful intercourse, Denies painful periods, Denies painful urination, Denies pelvic pain, Denies prolapse symptoms, Denies sexual problems, Denies side pain, Denies urinary incontinence, Denies urinary urgency, Denies vaginal discharge, Denies vaginal dryness, Denies vaginal odor, Denies vaginal itching, Denies other Comments: Decreased urination Musculoskeletal: Denies abnormal walking, Denies back pain, Denies body aches, Denies decreased muscle mass, Denies deformity, Denies joint pain, Denies joint swelling, Denies limited joint movement, Denies loss of height, Denies muscle cramps, Denies muscle weakness, Denies neck pain, Denies numbness, Denies radiating pain into limb, Denies stiffness, Denies tingling, Denies other Skin/Breast: Denies acne, Denies bleeding lesions, Denies boil, Denies breast swelling, Denies breast skin changes, Denies breast pain, Denies breast lump, Denies change in breast shape, Denies change in hair, Denies change in skin color, Denies changing lesions, Denies dry skin, Denies excessive hair growth, Denies hair loss, Denies itching, Denies lesions, Denies nail changes, Denies new lesions, Denies nipple discharge, Denies non-healing lesions, Denies redness , Denies sensitivity to light, Denies rash, Denies skin pain, Denies skin ulcer , Denies sores, Denies stretch michaud, Denies unusual bruising, Denies wounds, Denies yellowing of the skin, Denies other Neurologic: Denies abnormal hearing, Denies abnormal movements, Denies abnormal speech, Denies abnormal walking, Denies behavioral changes, Denies burning sensations, Denies confusion, Denies dizziness, Denies fainting, Denies frequent falls, Denies headache(s), Denies lack of coordination, Denies localized weakness, Denies loss of vision, Denies memory loss, Denies numbness, Denies other visual disturbances, Denies radiating pain, Denies restless legs, Denies convulsions, Denies seizure-like activity, Denies sensory deficit, Denies tingling, Denies tingling/numbness/burning sensations, Denies tremor(s), Denies unsteadiness, Denies weakness, Denies other Psychiatric: Denies abnormal sleep pattern, Denies anxiety, Denies behavioral changes, Denies change in appetite, Denies change in sex drive, Denies confusion , Denies depression, Denies difficulty concentrating, Denies hearing things others do not hear, Denies hopelessness, Denies irritability, Denies lack of enjoyment, Denies memory loss, Denies mood swings, Denies panic attacks, Denies paranoia, Denies seeing things others do not see, Denies sensing things others do not sense, Denies tactile hallucinations, Denies thoughts of hurting/killing others, Denies thoughts of hurting/killing yourself, Denies other Endocrine: Denies cold intolerance, Denies excessive sweating, Denies flushing, Denies heat intolerance, Denies increased hunger, Denies increased thirst, Denies increased urination, Denies rapid, pounding, or irregular heartbeat, Denies other Hematologic/Lymphatic: Denies easy bleeding, Denies easy bruising, Denies enlarged lymph nodes, Denies other Allergic/Immunologic: Denies GI upset with certain foods, Denies hives, Denies itchy eyes, Denies lip swelling, Denies seasonal runny nose, Denies throat swelling, Denies tongue swelling, Denies wheezing, Denies other PMFSH - History History Provided By: Patient - Medical History Medical History: Medical History (Last Reviewed 04/22/18 @ 12:18 by Gilberto Patel MD) Diabetes Dumping syndrome Fracture, femur Fracture, femur GERD (gastroesophageal reflux disease) Gastroparesis History of hysterectomy Kidney failure Liver function failure On total parenteral nutrition (TPN) - Surgical History Surgical History: Surgical History (Last Reviewed 04/05/18 @ 08:32 by Chip Ureña, PT) H/O splenectomy History of colectomy History of intestinal surgery History of oophorectomy History of pancreatectomy Kidney transplant recipient Surgical procedure on lower extremity within past 6 months - Family History Family History: Family History (Last Reviewed 04/22/18 @ 12:18 by Gilberto Patel MD) Other No family history of cardiac disease - Tobacco History Second Hand Smoke Exposure: No Smoking Status: Never smoker Tobacco Type: Cigarettes Smoking End Date: 2008 (smoke 1/4 PPD off and on for 10 years before quitting in 2008) - Alcohol History How Often Do You Have a Drink Containing Alcohol: Never - Substance Use History Substance History: No History of Abuse - Travel History History of Recent Travel: Yes (was in [place] then [place]) Recent Travel in the [place] Within the Last 8 Weeks: No Recent Travel Out of the Country Within the Last 8 Weeks: No - Immunization History Tetanus Immunization: <5 Years Medications and Allergies Active Medications: Active Medications Acetaminophen (Tylenol) 650 mg PO Q4H PRN PRN Reason: Headache, fever, pain 1-4 Al Hydroxide/Mg Hydroxide (Milk Of Magnesia Liq) 30 ml PO Q12H PRN PRN Reason: Mild Constipation Bisacodyl (Dulcolax Supp) 10 mg RECTAL DAILY PRN PRN Reason: SEVERE CONSITIPATION Sodium Chloride (Ns Inj) 1,000 mls @ 100 mls/hr IV.CONT .Q10H RONALD Last Admin: 04/22/18 11:54 Dose: 100 mls/hr Meropenem 1,000 mg/ Sodium (Chloride) 100 mls @ 200 mls/hr IV.SIG Q12H RONALD Lactulose (Lactulose Liq) 30 ml PO DAILY PRN PRN Reason: SEVERE CONSITIPATION Ondansetron HCl (Zofran Inj) 4 mg IV.PUSH Q6H PRN PRN Reason: NAUSEA OR VOMITING Sennosides (Senokot) 17.2 mg PO Q12H PRN PRN Reason: Moderate Constipation Allergies Allergy/AdvReac Type Severity Reaction Status Date / Time metronidazole [From Flagyl] Allergy Mild Hives Verified 03/27/18 18:27 oxycodone Allergy Mild Redness of Verified 03/27/18 18:27 Skin oxytetracycline Allergy Mild Hives Verified 03/27/18 18:27 [From Terramycin] fentanyl Allergy Edema Verified 04/05/18 17:07 filgrastim [From Neupogen] Allergy Anaphylaxis Verified 04/05/18 10:48 Home Medications Medication Instructions Recorded Confirmed Type Phenergan 25 mg PO Q6-8H PRN 03/27/18 03/27/18 History acetaminophen 650 mg PO Q4H PRN 03/27/18 03/27/18 History anagrelide 0.5 mg PO Q12H 03/27/18 03/27/18 History atorvastatin 20 mg PO DAILY 03/27/18 03/27/18 History azathioprine [Imuran] 100 mg PO DAILY 03/27/18 03/27/18 History belatacept 10 mg/kg IV QMONTH 03/27/18 03/27/18 History calcium carbonate 1 tab PO BID 03/27/18 03/27/18 History carvedilol 12.5 mg PO BID 03/27/18 03/27/18 History diphenoxylate-atropine [Lomotil] 1 tab PO TID 03/27/18 03/27/18 History enoxaparin 40 mg SUBCUT DAILY 03/27/18 03/27/18 History ergocalciferol (vitamin D2) 50,000 unit PO 3XW 03/27/18 03/27/18 History hydromorphone 2 mg PO Q6H PRN 03/27/18 03/27/18 History insulin glargine 12 unit SUBCUT QNOON 03/27/18 03/27/18 History insulin lispro 1 sliding scale dose SUBCUT UD 03/27/18 03/27/18 History [id number]-egivfbt [Creon] 1 cap PO TIDAC 03/27/18 03/27/18 History ondansetron 4 mg PO Q8H PRN 03/27/18 03/27/18 History pantoprazole 40 mg PO BID 03/27/18 03/27/18 History prednisone 10 mg PO DAILY 03/27/18 03/27/18 History prochlorperazine maleate 10 mg PO Q6-8H PRN 03/27/18 03/27/18 History [Compazine] tacrolimus 0.5 mg PO DAILY 03/27/18 03/27/18 History tacrolimus [Prograf] 4 mg PO Q12H 03/27/18 03/27/18 History Physical Exam Vital signs: Vital Signs 04/22/18 08:56 Temperature 98.8 F Pulse Rate 97 H Respiratory Rate 16 Blood Pressure 136/88 Pulse Oximetry 100 Intake & Output 04/21/18 04/22/18 04/22/18 18:59 06:59 18:59 Intake Total 1100 / 1100 Balance 1100 / 1100 Weight 56.245 kg Intake: IV 1100 / 1100 NS Inj 1,000 ML @ Wide Open IV. 1000 / 1000 SIG BOLUS ONE Rx#:[id number] Tazicef Inj 2,000 MG In NS Inj 100 / 100 100 ML @ 200 mls/hr IV.SIG ONCE ONE Rx#:[id number] - Constitutional no acute distress - Routine HEENT Exam Head: Present: normocephalic, atraumatic - Routine Neck Exam Present: supple, full ROM - Routine Respiratory Exam Present: CTA bilaterally - Routine Cardiovascular Exam Present: RRR, S1, S2, murmur Comments: systolic murmur, loudest at left 2nd intercostal space - Routine Abdominal Exam Present: soft, normoactive bowel sounds Comments: tender in epigastrium. No rebound/guarding - Routine Extremities Exam Present: pulses intact - Routine Skin Exam Present: intact - Routine Neurological Exam Present: alert, oriented X3 - Detailed Neurological Exam: Coma Scale Verbal Response: Oriented - Routine Psychiatric Exam Present: normal affect, normal thought process Assessment and Plan - Assessment (1) Renal transplant recipient Code(s): Z94.0 - Kidney transplant status Status: Acute (2) Renal insufficiency Code(s): N28.9 - Disorder of kidney and ureter, unspecified Status: Acute (3) DM (diabetes mellitus) Code(s): E11.9 - Type 2 diabetes mellitus without complications Status: Acute (4) Abdominal pain Code(s): R10.9 - Unspecified abdominal pain Status: Acute - Plan Patient with complex medical and surgcial histroy, s/p living donor kidney transplant in June 2017 in [place]. Was seen at [facility] since then for consideration for multivisceral transplant. Was on TPN, but has since refused to resume, although its unclear, how well she will do nutritionally due to the amount of remaining bowel. She seemed to be doing okay post discharge. Her uirne seemed to be responding to antibiosis, however, she now re-presents with what seems to be either a new or recurrent UTI. No stent seems to be present on her recent imaging studies. Her creatinine is eleavted to 1.66 , but unclear if this is related to her current illness and relative dehydration. Tristan monitor and see what happens with resuscitation. She will need a central line in order to at least get IV antibiotics. This was discussed with her and she is agreeable. We will plan to start her on meropenem via the peripheral IV for now , then place a tunneled line on Wednesday. Re her epigastric pain, suspect it is due to gastric distension. Will get KUB and if that is so, will decompress with an NG, then plan for a Ct abd/pelvis with oral contrast. Unsure what to think about her c/o dyspnea and chest pain. Will defer to hospitalist for now re deciding whether to repeat the echo and cardiac eval. Case d/w Dr Brian and Dr Austin. Dr Hughes, aslo aware. Appreciate everyone's assistance with this complex patient.
--- NOTE | 2018-04-22 13:07 | XR ---
EXAM DATE: 04/22/2018 1:01 PM EDT AGE/SEX: 57 years / Female INDICATIONS: Severe epigastric and abdominal pain, abdominal distention CLINICAL DATA: This is the patient's initial encounter. Patient reports that signs and symptoms have been present for 2 days and indicates a pain score of 10/10. MEDICAL/SURGICAL HISTORY: Diabetes. Gastroesophageal reflux disease. dumping syndrome, renal f ailure, bowel disease Hysterectomy. Renal transplant. Splenectomy. pancreatotomy COMPARISON: [facility] [place] ABDOMEN & PELVIS W/O CONTRAST, 04/04/2018. . FINDINGS: IVC filter and surgical clips are identified. No dilated loops of bowel are seen. Osseous structures are intact. CONCLUSION: Negative examination. Electronically signed by: Eric Glasgow MD 04/22/2018 1:06 PM EDT
[2018-04-22] MEDS: HYDROmorphone PF Inj 2 MG/ML Vial IV.PUSH PRN ×4 (13:19→21:55)
--- NOTE | 2018-04-22 13:59 | P.CONID ---
History of Present Illness Service: Infectious disease Consult date: 04/22/18 Requesting Physician: Sue Brian Reason for Consult: Evaluate patient UTI, status post renal transplant Chief Complaint: Abd pain, decreased urine output History of Present Illness: Patient seen and examined. Records reviewed. Patient is a 57-year-old female, with a very complicated medical and surgical history, was recently hospitalized for fevers. She was later diagnosed to have urinary tract infection and was discharged on Augmentin. Patient completed the course of antibiotics about 3 days ago. She has had follow-up urinalysis which showed improvement in her pyuria. Her problems started 1 day prior to admission when she developed significant weakness, and later on she started having problem with difficulty urinating, some suprapubic discomfort. When she started urinating she really did not have any dysuria, but had noted decrease in her urine output. She also has been having problem with epigastric pain which was present when she was here during her last admission, but it got better by the time she was discharged, and recently started back again about a week ago. She has chronic nausea but has not had any vomiting. Denies any respiratory complaint. She has been having a lot of reflux symptoms and actually has been sleeping upright. Has not had any fevers, but has had chills for about 2 days on and off. She is also been having sweats since she was discharged from the hospital. She had some episode of blood when she urinated and had a bowel movement and this was about a week ago, and she stopped her anticoagulation. That has stopped. During that time she also noted some nosebleed. Patient called her transplant surgeon, and she was advised to go to the emergency room for further evaluation and treatment. On presentation she has not been febrile. Her white count is up to 17,000. Her urinalysis is showing pyuria again. Infectious disease consultation has been requested to evaluate the patient. Past Hx: Gastroparesis 2010 Pancreatectomy, islet cell transplant Reza-en-Y duodenal jejunostomy, hepaticojejunostomy, pancreaticojejunostomy, splenectomy 2011 exp lap, RHIANNA, closure of enterotomy in the pancreaticobiliary limb, and terminal ileal through distal sigmoid resection Adult polycystic liver and kidney disease Chronic abdominal pain 2013 extensive RHIANNA, L decortication, and nephrectomy 2016 placement of LUE AVG June 2017 Unrelated donor renal transplant and left nephrectomy August 2017 exp lap, RHIANNA, revision of ileocolic anastomosis September 2017 dev hydro transplant kidney, septic shock, E coli ESBL , and had DVT L femoral vein December 2017 exp lap RHIANNA, and more surgery to bowels Review of Systems Constitutional: Reports chills, Reports lack of energy, Reports night sweats, Denies fever(s) Eyes: Denies discharge, Denies dry eyes Ears, Nose, Mouth, and Throat: Denies difficulty swallowing, Denies ear pain, Denies facial pain, Denies nasal discharge, Denies sore throat Cardiovascular: Denies chest pain, Denies shortness of breath Respiratory: Denies chest congestion, Denies cough, Denies shortness of breath Gastrointestinal: Reports abdominal pain, Reports loose stools, Reports nausea, Denies pain with swallowing, Denies vomiting Genitourinary: Reports difficulty urinating, Denies painful urination Musculoskeletal: Denies joint pain, Denies joint swelling Skin/Breast: Denies rash, Denies sores PMFSH - History History Provided By: Patient - Medical History Medical History: Medical History (Last Reviewed 04/22/18 @ 15:19 by Pam Austin MD) Gastroparesis Diabetes Dumping syndrome Fracture, femur GERD (gastroesophageal reflux disease) Gastroparesis History of hysterectomy Kidney failure Liver function failure - Surgical History Surgical History: Surgical History (Last Reviewed 04/22/18 @ 15:19 by Pam Austin MD) H/O splenectomy History of colectomy History of intestinal surgery History of oophorectomy History of pancreatectomy Kidney transplant recipient Surgical procedure on lower extremity within past 6 months - Family History Family History: Family History (Last Reviewed 04/22/18 @ 15:19 by Pam Austin MD) Other No family history of cardiac disease - Tobacco History Second Hand Smoke Exposure: No Smoking Status: Never smoker Tobacco Type: Cigarettes Smoking End Date: 2008 (smoke 1/ PPD off and on for 10 years before quitting in 2008) - Alcohol History How Often Do You Have a Drink Containing Alcohol: Never - Substance Use History Substance History: No History of Abuse - Travel History History of Recent Travel: Yes (was in [place] then [place]) Recent Travel in the [place] Within the Last 8 Weeks: No Recent Travel Out of the Country Within the Last 8 Weeks: No - Immunization History Tetanus Immunization: <5 Years Medications and Allergies Active Medications: Active Medications Acetaminophen (Tylenol) 650 mg PO Q4H PRN PRN Reason: Headache, fever, pain 1-4 Al Hydroxide/Mg Hydroxide (Milk Of Magnesia Liq) 30 ml PO Q12H PRN PRN Reason: Mild Constipation Bisacodyl (Dulcolax Supp) 10 mg RECTAL DAILY PRN PRN Reason: SEVERE CONSITIPATION Hydromorphone HCl (Dilaudid Pf Inj) 2 mg IV.PUSH Q4H PRN PRN Reason: Pain 7-10 Last Admin: 04/22/18 13:19 Dose: 2 mg Sodium Chloride (Ns Inj) 1,000 mls @ 100 mls/hr IV.CONT .Q10H [facility] Last Admin: 04/22/18 11:54 Dose: 100 mls/hr Meropenem 1,000 mg/ Sodium (Chloride) 100 mls @ 200 mls/hr IV.SIG Q12H [facility] Last Admin: 04/22/18 13:17 Dose: 200 mls/hr Lactulose (Lactulose Liq) 30 ml PO DAILY PRN PRN Reason: SEVERE CONSITIPATION Ondansetron HCl (Zofran Inj) 4 mg IV.PUSH Q6H PRN PRN Reason: NAUSEA OR VOMITING Sennosides (Senokot) 17.2 mg PO Q12H PRN PRN Reason: Moderate Constipation Allergies Allergy/AdvReac Type Severity Reaction Status Date / Time metronidazole [From Flagyl] Allergy Mild Swelling Verified 04/22/18 16:51 of the Eye oxycodone Allergy Mild Itching, Verified 04/22/18 16:52 Generalized oxytetracycline Allergy Mild Hives Verified 03/27/18 18:27 [From Terramycin] fentanyl Allergy Edema Verified 04/05/18 17:07 filgrastim [From Neupogen] Allergy Anaphylaxis Verified 04/05/18 10:48 Home Medications Medication Instructions Recorded Confirmed Type Phenergan 25 mg PO Q6-8H PRN 03/27/18 04/22/18 History acetaminophen 650 mg PO Q4H PRN 03/27/18 04/22/18 History atorvastatin 20 mg PO DAILY 03/27/18 04/22/18 History carvedilol 12.5 mg PO BID 03/27/18 04/22/18 History diphenoxylate-atropine [Lomotil] 1 tab PO TID 03/27/18 04/22/18 History enoxaparin 40 mg SUBCUT BID 03/27/18 04/22/18 History ergocalciferol (vitamin D2) 50,000 unit PO 3XW 03/27/18 04/22/18 History insulin glargine 12 unit SUBCUT QAM AND QHS 03/27/18 04/22/18 History insulin lispro 1 sliding scale dose SUBCUT UD 03/27/18 04/22/18 History [id number]-cirixts [Creon] 1 cap PO TIDAC 03/27/18 04/22/18 History ondansetron 4 mg PO Q8H PRN 03/27/18 04/22/18 History prednisone 10 mg PO DAILY 03/27/18 04/22/18 History prochlorperazine maleate 10 mg PO Q6-8H PRN 03/27/18 04/22/18 History [Compazine] tacrolimus [Prograf] 4 mg PO Q12H 03/27/18 04/22/18 History dexlansoprazole [Dexilant] 60 mg PO DAILY 04/24/18 04/24/18 History metoclopramide HCl [Reglan] 5 mg PO TID 04/24/18 04/24/18 History Exam Vital signs: Vital Signs 04/22/18 08:56 Temperature 98.8 F Pulse Rate 97 H Respiratory Rate 16 Blood Pressure 136/88 Pulse Oximetry 100 Intake & Output 04/21/18 04/22/18 04/22/18 18:59 06:59 18:59 Intake Total 1100 / 1100 Balance 1100 / 1100 Weight 56.245 kg Intake: IV 1100 / 1100 NS Inj 1,000 ML @ Wide Open IV. 1000 / 1000 SIG BOLUS ONE Rx#:[id number] Tazicef Inj 2,000 MG In NS Inj 100 / 100 100 ML @ 200 mls/hr IV.SIG ONCE ONE Rx#:[id number] Narrative: Physical Examination GENERAL: Patient is a well-nourished, well-developed female, awake and alert , not in respiratory distress. SKIN: Warm and dry. No generalized rash, no ecchymoses and no evidence of embolic lesions. HEAD: Atraumatic. Normocephalic. No temporal wasting, or tenderness. EYES: [place] conjunctiva. No petechia or hemorrhage. Pupils equal, round and reactive to light. Extraocular movements full and intact. No scleral icterus. No injection or drainage. EARS, NOSE AND THROAT: Nose without bleeding or purulent nasal discharge. No sinus tenderness. Mucous membranes pink and moist. No oral lesions noted. No exudate. No oral thrush. NECK: Trachea midline. Supple and not tender, no meningeal signs CARDIOVASCULAR: Regular rate and rhythm. No murmurs, rubs or gallops heard. Previous site of [place] looks ok RESPIRATORY: Clear to auscultation. Breath sounds equal bilaterally. No rales , wheezing or rhonchi ABDOMEN: Soft, flat, muliplte scars compatible with her surgical history, has mild epigastric tenderness, no rebound, no guarding. Bowel sounds present and normoactive. EXTREMITIES: No clubbing, cyanosis, or edema. No joint effusion, has good ROM. No calf tenderness. Well perfused and warm. NEUROLOGICAL: Awake and alert. Cranial nerves grossly intact. Motor grossly within normal limits. PSYCHIATRIC: Normal affect, calm and cooperative. LINE: No evidence of infection Results - Labs CBC & Chem 7: 04/25/18 08:20 04/25/18 11:20 Labs: Laboratory Results - last 24 hr 04/22/18 04/22/18 04/22/18 09:50 10:05 10:05 WBC 17.6 H RBC 3.49 L Hgb 9.7 L Hct 30.6 L MCV 87.7 MCH 27.7 MCHC 31.6 L RDW 17.2 Plt Count 739 H D MPV 9.5 Neut % (Auto) 85.4 H Lymph % (Auto) 2.7 L [place] % (Auto) 10.7 H Eos % (Auto) 0.7 Baso % (Auto) 0.5 Neut # (Auto) 15.1 H Lymph # (Auto) 0.5 L [place] # (Auto) 1.9 H Eos # (Auto) 0.1 Baso # (Auto) 0.1 WBC Differential . Differential Comment Auto diff final Sodium 131 L Potassium 4.8 Chloride 101 Carbon Dioxide 21.0 Anion Gap 9 BUN 29 H Creatinine 1.66 H Estimated GFR 32 L Random Glucose 235 H Calcium 10.3 H Phosphorus 2.1 L Magnesium 1.7 Total Bilirubin 0.3 AST 16 ALT 20 Alkaline Phosphatase 242 H Total Protein 7.7 Albumin 3.1 L Lipase 19 L Urine Color Yellow Urine Clarity Cloudy H Urine pH 5.0 Ur Specific [place] 1.022 Urine Protein 30 H Urine Glucose (UA) 500 or greater Urine Ketones Trace H Urine Occult Blood Negative Urine Nitrate Negative Urine Bilirubin Negative Urine Urobilinogen 2.0 H Ur Leukocyte Esterase Moderate H Urine RBC 1 Urine WBC 166 H Urine WBC Clumps Many H Ur Squamous Epith Cells 2 Urine Bacteria Many H Hyaline Casts 9 Micro UA Comment Culture indicated Ur Microscopic Review Not Reportable Urine Culture Comments Culture indicated 04/22/18 04/22/18 10:05 10:05 WBC RBC Hgb Hct MCV MCH MCHC RDW Plt Count MPV Neut % (Auto) Lymph % (Auto) [place] % (Auto) Eos % (Auto) Baso % (Auto) Neut # (Auto) Lymph # (Auto) [place] # (Auto) Eos # (Auto) Baso # (Auto) WBC Differential Differential Comment Sodium Potassium Chloride Carbon Dioxide Anion Gap BUN Creatinine Estimated GFR Random Glucose Calcium Phosphorus Cancelled Magnesium Cancelled Total Bilirubin AST ALT Alkaline Phosphatase Total Protein Albumin Lipase Urine Color Urine Clarity Urine pH Ur Specific [place] Urine Protein Urine Glucose (UA) Urine Ketones Urine Occult Blood Urine Nitrate Urine Bilirubin Urine Urobilinogen Ur Leukocyte Esterase Urine RBC Urine WBC Urine WBC Clumps Ur Squamous Epith Cells Urine Bacteria Hyaline Casts Micro UA Comment Ur Microscopic Review Urine Culture Comments - Imaging Impressions Abdomen X-Ray 04/22/18 00:00 CONCLUSION: Negative examination. Assessment and Plan - Plan Impression Possible sepsis Recurrent UTI Weakness, leukocytosis, possibly due to sepsis S/P renal transplant Chronic abdominal pain, nausea, hx gastroparesis, has had multiple and extensive abdominal surgeries Renal insufficiency Recommendation Get 2 BC Follow results of C/S IV meropenem to cover for likelihood of ESBL+ UC Follow CBC Monitor temps Monitor progress I will follow along with you Thank you for this consultation Explained plan to the patient Spoke with Dr Patel earlier D/W Dr Brian ([facility])
[2018-04-22] MEDS ORDERED: ASP: Documented ESBL, MDR A baumannii or P. aeruginosa OTHER PRN (14:00)
[2018-04-22] MEDS ORDERED: Dextrose 50% in Water 50 ML Vial IV.PUSH PRN (17:24)
[2018-04-22] MEDS ORDERED: INSULIN GLARGINE 12 UNIT SQ SCH (17:30)
[2018-04-22] MEDS ORDERED: Diatrizoate Meglum/Diatrizoate Sod Liq 9 ML UDC PO ONE (17:44)
--- NOTE | 2018-04-22 17:48 | P.HP ---
History of Present Illness Service: Hospitalist Primary Care Physician: UNKNOWN Chief Complaint: Abd pain, decreased urine output History of Present Illness: Ms. 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 She noticed decreased urine output and had nausea, dry heaves as well. She did not have any fever, chills. Patient was recently discharged from the hospital on Augmentin for UTI. Additionally, she complains of epigastric pain and significant GERD symptoms despite taking a potent PPI. Patient is currently hemodynamically stable. She is afebrile, WBC is elevated to 17.6K, Creatinine 1.66, BUN 29. Urinalysis shows evidence of UTI. She has significant diarrhea which is chronic for her. Transplant surgeon as well as ID were consulted. PMH: Polycystic kidney disease, recurrent DVT/PE, chronic pancreatitis, gastroparesis Past surgical history: Numerous abdominal surgeries including total pancreatectomy, renal transplant Social history: Patient denies using tobacco or alcohol or illicit drugs. Family history: Multiple family members with polycystic kidney disease. Inpatient Certification: I certify that the inpatient services were ordered in accordance with Medicare regulations governing the order. This includes certification that hospital inpatient services are reasonable and necessary and in the case of services not specified as inpatient-only under 42 CFR 419.22(n), that they are appropriately provided as inpatient services in accordance to with the 2-midnight benchmark under 43 CFR 412.3(e) Estimated Total Length of Stay (Days): 3 Plans for Post Hospital Care: Home Review of Systems All other systems reviewed negative except as stated in HPI PMFSH - History History Provided By: Patient - Medical History Medical History: Medical History (Last Reviewed 04/22/18 @ 15:19 by Pam Austin MD) Gastroparesis Diabetes Dumping syndrome Fracture, femur GERD (gastroesophageal reflux disease) Gastroparesis History of hysterectomy Kidney failure Liver function failure - Surgical History Surgical History: Surgical History (Last Reviewed 04/22/18 @ 15:19 by Pam Austin MD) H/O splenectomy History of colectomy History of intestinal surgery History of oophorectomy History of pancreatectomy Kidney transplant recipient Surgical procedure on lower extremity within past 6 months - Family History Family History: Family History (Last Reviewed 04/22/18 @ 15:19 by Pam Austin MD) Other No family history of cardiac disease - Tobacco History Second Hand Smoke Exposure: No Tobacco Use In Past 30 Days: No Smoking Status: Never smoker Tobacco Type: Cigarettes Smoking End Date: 2008 (smoke 1/4 PPD off and on for 10 years before quitting in 2008) - Alcohol History How Often Do You Have a Drink Containing Alcohol: Never - Substance Use History Substance History: No History of Abuse - Travel History History of Recent Travel: Yes (was in [place] then [place]) Recent Travel in the [place] Within the Last 8 Weeks: No Recent Travel Out of the Country Within the Last 8 Weeks: No - Immunization History Tetanus Immunization: <5 Years Hx Influenza Vaccine This Season: Yes Medications and Allergies Active Medications: Active Medications Acetaminophen (Tylenol) 650 mg PO Q4H PRN PRN Reason: Headache, fever, pain 1-4 Al Hydroxide/Mg Hydroxide (Milk Of Magnesia Liq) 30 ml PO Q12H PRN PRN Reason: Mild Constipation Atorvastatin Calcium (Lipitor) 20 mg PO DAILY RONALD Bisacodyl (Dulcolax Supp) 10 mg RECTAL DAILY PRN PRN Reason: SEVERE CONSITIPATION Carvedilol (Coreg) 12.5 mg PO BID RONALD Dextrose (D50w Vial) 50 ml IV.PUSH UNSCH PRN PRN Reason: PER HYPOGLYCEMIA PROTOCOL Glucagon (Glucagon Inj) 1 mg OTHER PRN PRN PRN Reason: for Hypoglycemia Protocol Hydromorphone HCl (Dilaudid Pf Inj) 2 mg IV.PUSH Q4H PRN PRN Reason: Pain 7-10 Last Admin: 04/22/18 17:21 Dose: 2 mg Sodium Chloride (Ns Inj) 1,000 mls @ 100 mls/hr IV.CONT .Q10H RONALD Last Admin: 04/22/18 11:54 Dose: 100 mls/hr Meropenem 1,000 mg/ Sodium (Chloride) 100 mls @ 200 mls/hr IV.SIG Q12H RONALD Last Infusion: 04/22/18 14:03 Dose: Infused Insulin Aspart (Novolog Insulin Correctional Sugar Inj) 0 unit SQ ACHS RONALD; Protocol Insulin Detemir (Levemir Inj) 10 unit SQ HS RONALD Lactulose (Lactulose Liq) 30 ml PO DAILY PRN PRN Reason: SEVERE CONSITIPATION Miscellaneous Medication (Asp Crit: Doc Esbl, Mdr A Baumannii Or P Aer) 1 each OTHER UNSCH PRN PRN Reason: PHARMACY DOCUMENTATION Stop: 04/23/18 13:59 Ondansetron HCl (Zofran Inj) 4 mg IV.PUSH Q6H PRN PRN Reason: NAUSEA OR VOMITING Pantoprazole Sodium (Protonix) 40 mg PO BID RONALD Sennosides (Senokot) 17.2 mg PO Q12H PRN PRN Reason: Moderate Constipation Tacrolimus (Prograf) 4 mg PO Q12H RONALD Allergies Allergy/AdvReac Type Severity Reaction Status Date / Time metronidazole [From Flagyl] Allergy Mild Swelling Verified 04/22/18 16:51 of the Eye oxycodone Allergy Mild Itching, Verified 04/22/18 16:52 Generalized oxytetracycline Allergy Mild Hives Verified 03/27/18 18:27 [From Terramycin] fentanyl Allergy Edema Verified 04/05/18 17:07 filgrastim [From Neupogen] Allergy Anaphylaxis Verified 04/05/18 10:48 Home Medications Medication Instructions Recorded Confirmed Type Phenergan 25 mg PO Q6-8H PRN 03/27/18 04/22/18 History acetaminophen 650 mg PO Q4H PRN 03/27/18 04/22/18 History atorvastatin 20 mg PO DAILY 03/27/18 04/22/18 History carvedilol 12.5 mg PO BID 03/27/18 04/22/18 History diphenoxylate-atropine [Lomotil] 1 tab PO TID 03/27/18 04/22/18 History enoxaparin 40 mg SUBCUT BID 03/27/18 04/22/18 History ergocalciferol (vitamin D2) 50,000 unit PO 3XW 03/27/18 04/22/18 History insulin glargine 12 unit SUBCUT QAM AND QHS 03/27/18 04/22/18 History insulin lispro 1 sliding scale dose SUBCUT UD 03/27/18 04/22/18 History [id number] [Creon] 1 cap PO TIDAC 03/27/18 04/22/18 History ondansetron 4 mg PO Q8H PRN 03/27/18 04/22/18 History pantoprazole 40 mg PO BID 03/27/18 04/22/18 History prednisone 10 mg PO DAILY 03/27/18 04/22/18 History prochlorperazine maleate 10 mg PO Q6-8H PRN 03/27/18 04/22/18 History [Compazine] tacrolimus [Prograf] 4 mg PO Q12H 03/27/18 04/22/18 History Exam Vital signs: Vital Signs 04/22/18 08:56 04/22/18 12:05 04/22/18 14:25 Temperature 98.8 F Pulse Rate 97 H 86 75 Respiratory Rate 16 17 17 Blood Pressure 136/88 130/80 142/56 H Pulse Oximetry 100 98 100 Intake & Output 04/21/18 04/22/18 04/22/18 18:59 06:59 18:59 Intake Total 1200 / 1200 Balance 1200 / 1200 Weight 56.4 kg Intake: IV 1200 / 1200 Merrem Inj 1,000 MG In NS Inj 100 / 100 100 ML @ 200 mls/hr IV.SIG Q12H RONALD Rx#:[id number] NS Inj 1,000 ML @ Wide Open IV. 1000 / 1000 SIG BOLUS ONE Rx#:[id number] Tazicef Inj 2,000 MG In NS Inj 100 / 100 100 ML @ 200 mls/hr IV.SIG ONCE ONE Rx#:[id number] Other: Weight On Admission 56.4 kg Narrative: GENERAL: This is a well-nourished, well-developed patient, in no apparent distress. SKIN: No rashes, ecchymoses or lesions. Warm and dry. HEAD: Atraumatic. Normocephalic. No temporal or scalp tenderness. EYES: Pupils equal round and reactive. No injection or drainage. ENT: Nose without bleeding, purulent drainage or septal hematoma. Airway patent. NECK: Trachea midline. No lymphadenopathy. Supple, nontender, no meningeal signs. CARDIOVASCULAR: Regular rate and rhythm without murmurs, gallops, or rubs. No JVD. RESPIRATORY: Clear to auscultation. Breath sounds equal bilaterally. No wheezes , rales, or rhonchi. GASTROINTESTINAL: Abdomen soft, epigastric tenderness noted, nondistended. No guarding. Multiple surgical scar noted MUSCULOSKELETAL: Extremities without clubbing, cyanosis, or edema. NEUROLOGICAL: Awake and alert. Cranial nerves II through XII intact. No focal neurological deficits. Normal speech. Results - Labs CBC & Chem 7: 04/22/18 10:05 04/22/18 10:05 Labs: Laboratory Results - last 24 hr 04/22/18 04/22/18 04/22/18 09:50 10:05 10:05 WBC 17.6 H RBC 3.49 L Hgb 9.7 L Hct 30.6 L MCV 87.7 MCH 27.7 MCHC 31.6 L RDW 17.2 Plt Count 739 H D MPV 9.5 Neut % (Auto) 85.4 H Lymph % (Auto) 2.7 L [place] % (Auto) 10.7 H Eos % (Auto) 0.7 Baso % (Auto) 0.5 Neut # (Auto) 15.1 H Lymph # (Auto) 0.5 L [place] # (Auto) 1.9 H Eos # (Auto) 0.1 Baso # (Auto) 0.1 WBC Differential . Differential Comment Auto diff final Sodium 131 L Potassium 4.8 Chloride 101 Carbon Dioxide 21.0 Anion Gap 9 BUN 29 H Creatinine 1.66 H Estimated GFR 32 L POC Glucose Random Glucose 235 H Calcium 10.3 H Phosphorus 2.1 L Magnesium 1.7 Total Bilirubin 0.3 AST 16 ALT 20 Alkaline Phosphatase 242 H Total Protein 7.7 Albumin 3.1 L Lipase 19 L Urine Color Yellow Urine Clarity Cloudy H Urine pH 5.0 Ur Specific [place] 1.022 Urine Protein 30 H Urine Glucose (UA) 500 or greater Urine Ketones Trace H Urine Occult Blood Negative Urine Nitrate Negative Urine Bilirubin Negative Urine Urobilinogen 2.0 H Ur Leukocyte Esterase Moderate H Urine RBC 1 Urine WBC 166 H Urine WBC Clumps Many H Ur Squamous Epith Cells 2 Urine Bacteria Many H Hyaline Casts 9 Micro UA Comment Culture indicated Ur Microscopic Review Not Reportable Urine Culture Comments Culture indicated 04/22/18 04/22/18 04/22/18 10:05 10:05 16:44 WBC RBC Hgb Hct MCV MCH MCHC RDW Plt Count MPV Neut % (Auto) Lymph % (Auto) [place] % (Auto) Eos % (Auto) Baso % (Auto) Neut # (Auto) Lymph # (Auto) [place] # (Auto) Eos # (Auto) Baso # (Auto) WBC Differential Differential Comment Sodium Potassium Chloride Carbon Dioxide Anion Gap BUN Creatinine Estimated GFR POC Glucose 222 H Random Glucose Calcium Phosphorus Cancelled Magnesium Cancelled Total Bilirubin AST ALT Alkaline Phosphatase Total Protein Albumin Lipase Urine Color Urine Clarity Urine pH Ur Specific [place] Urine Protein Urine Glucose (UA) Urine Ketones Urine Occult Blood Urine Nitrate Urine Bilirubin Urine Urobilinogen Ur Leukocyte Esterase Urine RBC Urine WBC Urine WBC Clumps Ur Squamous Epith Cells Urine Bacteria Hyaline Casts Micro UA Comment Ur Microscopic Review Urine Culture Comments - Imaging Impressions Abdomen X-Ray 04/22/18 00:00 CONCLUSION: Negative examination. Caprini VTE Risk Assessment Caprini VTE Risk Assessment: Moderate/High Risk (score >= 2) Caprini Risk Assessment Model: Point Value = 1 Point Value = 2 Point Value = 3 Point Value = 5 Age 41-60 Minor surgery BMI > 25 kg/m2 Swollen legs Varicose veins or History of unexplained or recurrent spontaneous Oral contraceptives or hormone replacement Sepsis (< 1 month) Serious lung disease, including pneumonia (< 1 month) Abnormal pulmonary function Acute myocardial infarction Congestive heart failure (< 1 month) History of inflammatory bowel disease Medical patient at bed rest Age 61-74 Arthroscopic surgery Major open surgery (> 45 min) Laparoscopic surgery (> 45 min) Malignancy Confined to bed (> 72 hours) Immobilizing plaster cast Central venous access Age >= 75 History of VTE Family history of VTE Factor V Leiden Prothrombin [id number] Lupus anticoagulant Anticardiolipin antibodies Elevated serum homocysteine Heparin-induced thrombocytopenia Other congenital or acquired thrombophilia Stroke (< 1 month) Elective arthroplasty Hip, pelvis, or leg fracture Acute spinal cord injury (< 1 month) Prophylaxis Regimen: Total Risk Factor Score Risk Level Prophylaxis Regimen 0-1 Low Early ambulation 2 Moderate Order ONE of the following: *Sequential Compression Device (SCD) *Heparin 5000 units SQ BID 3-4 Higher Order ONE of the following medications: *Heparin 5000 units SQ TID *Enoxaparin/Lovenox 40 mg SQ daily (WT < 150 kg, CrCl > 30 mL/min) *Enoxaparin/Lovenox 30 mg SQ daily (WT < 150 kg, CrCl > 10-29 mL/min) *Enoxaparin/Lovenox 30 mg SQ BID (WT < 150 kg, CrCl > 30 mL/min) AND/OR *Sequential Compression Device (SCD) 5 or more Highest Order ONE of the following medications: *Heparin 5000 units SQ TID (Preferred with Epidurals) *Enoxaparin/Lovenox 40 mg SQ daily (WT < 150 kg, CrCl > 30 mL/min) *Enoxaparin/Lovenox 30 mg SQ daily (WT < 150 kg, CrCl > 10-29 mL/min) *Enoxaparin/Lovenox 30 mg SQ BID (WT < 150 kg, CrCl > 30 mL/min) AND *Sequential Compression Device (SCD) Assessment and Plan - Plan Ms. Bailey is a 57-year-old female with history of numerous abdominal surgeries, gastroparesis, renal transplant who presents to the emergency department due to dehydration, nausea and dry heaves. Patient was recently discharged home on Augmentin for UTI. Patient complains of significant epigastric pain and reflux symptoms despite taking potent PPI. Transplant surgery as well as infectious disease were consulted. Sepsis (WBC 17.9K, heart rate 97, suspected infection UTI). Probable urinary tract infection -We will start patient on meropenem. Discussed with infectious disease who evaluate this patient. -Repeat labs in the morning. Abdominal pain History of kidney transplant History of polycystic kidney disease Acute on Chronic kidney disease -Creatinine 1.66 today. Her baseline appears to be around 1.3. -Continue normal saline at 100 cc/h. -Hydromorphone 2 mg IV every 4 hours as needed for abdominal pain. -Patient is requesting hydromorphone IV 4 mg every 2 hours as well as Benadryl IV. Patient's abdominal pain is chronic in nature and thus I do not see any need for this much pain medication. I will defer increasing pain medications to transplant surgeon. Patient requests pain management consultation which is not available at [facility]. -I have discussed with patient's RN who describes no reaction to hydromorphone 2 mg. Thus I do not see any need for Benadryl. -I will keep Benadryl p.o. as needed for any pruritus. -KUB unremarkable. -Will order CT abdomen pelvis with oral contrast only per discussion with transplant surgery. -If patient is unable to tolerate p.o. Gastrografin, will consider only CT abdomen pelvis without any contrast. Severe GERD Gastroparesis -Protonix 40 mg p.o. twice daily. -May need to start Reglan for Gastroparesis. Diabetes mellitus -Levemir 10 units nightly and sliding scale insulin. Full code. Lovenox.
[2018-04-22] MEDS: Enoxaparin Inj 40 MG/0.4 ML Syringe SQ SCH (19:07)
[2018-04-22] MEDS: Insulin NovoLOG Aspart Correctional Sugar Inj SQ SCH ×2 (19:10→22:36)
[2018-04-22] MEDS: Carvedilol 12.5 MG Tablet PO SCH (22:35)
[2018-04-22] MEDS: Insulin Detemir Inj 1,000 UNIT/10 ML Vial SQ SCH (22:35)
[2018-04-23] MEDS: diphenhydrAMINE HCl 12.5 MG/5 ML Elixir UDC PO PRN ×2 (00:15→23:06)
--- NOTE | 2018-04-23 00:43 | CT ---
EXAM DATE: 04/23/2018 12:02 AM EDT AGE/SEX: 57 years / Female INDICATIONS: Abdominal pain. CLINICAL DATA: This is the patient's initial encounter. Patient reports that signs and symptoms have been present for 1 day and indicates a pain score of 6/10. MEDICAL/SURGICAL HISTORY: Renal insufficiency. . Renal transplant RADIATION DOSE: 6.64 CTDI (mGy) COMPARISON: No prior exams available for comparison. TECHNIQUE: Multiple contiguous axial images were obtained through the abdomen. Images were obtained using multiple row detector helical technique. Using automated exposure control and adjustment of the mA and/or kV according to patient size, radiation dose was kept as low as reasonably achievable to o btain optimal diagnostic quality images. DICOM format image data is available electronically for rev iew and comparison. FINDINGS: Lower Lungs: Bibasilar atelectasis, right greater than left, stable from prior. Liver: Cholecystectomy and prominent pneumobilia similar in appearance to prior CT. Again noted are m ultiple round low density lesions throughout the right lobe of the liver. No new focal lesions for no ncontrast technique. Spleen: Surgically absent. Pancreas: Unremarkable without mass or calcification. Kidneys: Bilateral nephrectomy. Stable appearance to the transplant in the right lower quadrant with stable prominence of the collecting system. Adrenal Glands: Unremarkable. Aorta: The aorta and proximal iliac vessels are grossly unremarkable without aneurysmal dilation. Bowel/Mesentery: Moderate distention of the stomach stable from prior. No dilated loops of small or large bowel. Oral contrast passes two thirds of the way through the small bowel. Anastomosis suture i n the left lower quadrant. No evidence of free air. Abdominal Wall: Intact. Retroperitoneum: IVC filter in place. Bladder: Contours are smooth. Reproductive Organs: Hysterectomy. Inguinal: The inguinal region is unremarkable without evidence of adenopathy. Bony Structures: Diffuse osteopenia. Stable cortical irregularity to the lateral left iliac wing. CONCLUSION: 1. No acute findings. The overall appearance of CT scan is stable compared to 04/04/2018 with multipl e findings as described above. Electronically signed by: Heladio Campuzano MD 04/23/2018 12:42 AM EDT
[2018-04-23] MEDS: Acetaminophen 325 MG Tablet PO PRN ×4 (04:02→20:14)
[2018-04-23] MEDS ORDERED: Bisacodyl 10 MG Supp RECTAL ONE (05:57)
[2018-04-23 06:08] LABS: Calcium 9.1 mg/dL (8.5-10.1); Carbon Dioxide 21.1 meq/L (21.0-32.0); Potassium 4.6 meq/L (3.5-5.1)
--- NOTE | 2018-04-23 07:10 | P.PNTS ---
Subjective Interval history: C/o continued epigastric pain. Physical Exam Vital signs: Vital Signs 04/22/18 08:56 04/22/18 12:05 04/22/18 14:25 Temperature 98.8 F Pulse Rate 97 H 86 75 Respiratory Rate 16 17 17 Blood Pressure 136/88 130/80 142/56 H Pulse Oximetry 100 98 100 04/22/18 16:00 04/22/18 19:00 04/22/18 20:00 Temperature 98 F 98.8 F Pulse Rate 80 87 96 H Respiratory Rate 16 18 Blood Pressure 116/59 L 129/70 Pulse Oximetry 98 100 04/22/18 21:00 04/22/18 22:00 04/22/18 23:00 Temperature Pulse Rate 82 82 85 Respiratory Rate Blood Pressure Pulse Oximetry 04/23/18 00:00 04/23/18 01:00 04/23/18 02:00 Temperature 98.1 F Pulse Rate 82 82 82 Respiratory Rate 18 Blood Pressure 122/70 Pulse Oximetry 99 04/23/18 03:00 04/23/18 04:00 04/23/18 05:00 Temperature 99.1 F Pulse Rate 87 81 82 Respiratory Rate 18 Blood Pressure 117/67 Pulse Oximetry 99 04/23/18 06:00 Temperature Pulse Rate 76 Respiratory Rate Blood Pressure Pulse Oximetry Intake & Output 04/22/18 04/23/18 04/23/18 18:59 06:59 18:59 Intake Total 1400 / 1400 1700 / 1700 Output Total 1200 / 1200 Balance 1400 / 1400 500 / 500 Weight 56.4 kg 61.5 kg Intake: IV 1200 / 1200 1100 / 1100 NS Inj 1,000 ML @ 100 mls/hr IV 1000 / 1000 .CONT .Q10H RONALD Rx#:[id number] Merrem Inj 1,000 MG In NS Inj 100 / 100 100 / 100 100 ML @ 200 mls/hr IV.SIG Q12H RONALD Rx#:[id number] NS Inj 1,000 ML @ Wide Open IV. 1000 / 1000 SIG BOLUS ONE Rx#:[id number] Tazicef Inj 2,000 MG In NS Inj 100 / 100 100 ML @ 200 mls/hr IV.SIG ONCE ONE Rx#:[id number] Oral 200 / 200 600 / 600 Output: Urine 1200 / 1200 Other: Date of Last Bowel Movement 04/23/18 # Bowel Movements 0 Weight On Admission 56.4 kg - Constitutional no acute distress - Routine HEENT Exam Head: Present: normocephalic, atraumatic ENT: Present: mucous membranes moist - Routine Neck Exam Present: supple - Routine Respiratory Exam Present: CTA bilaterally - Routine Cardiovascular Exam Present: RRR, S1, S2, murmur Comments: greatest at left second intercostal space - Routine Abdominal Exam Present: soft, normoactive bowel sounds - Routine Extremities Exam Present: pulses intact - Routine Skin Exam Present: intact - Routine Neurological Exam Present: alert, oriented X3 - Detailed Neurological Exam: Coma Scale Verbal Response: Oriented - Routine Psychiatric Exam Present: normal affect, normal thought process Results - Labs CBC & Chem 7: 04/22/18 10:05 04/23/18 05:35 Laboratory Results - last 24 hr 04/22/18 04/22/18 04/22/18 09:50 10:05 10:05 WBC 17.6 H RBC 3.49 L Hgb 9.7 L Hct 30.6 L MCV 87.7 MCH 27.7 MCHC 31.6 L RDW 17.2 Plt Count 739 H D MPV 9.5 Neut % (Auto) 85.4 H Lymph % (Auto) 2.7 L [place] % (Auto) 10.7 H Eos % (Auto) 0.7 Baso % (Auto) 0.5 Neut # (Auto) 15.1 H Lymph # (Auto) 0.5 L [place] # (Auto) 1.9 H Eos # (Auto) 0.1 Baso # (Auto) 0.1 WBC Differential . Differential Comment Auto diff final Sodium 131 L Potassium 4.8 Chloride 101 Carbon Dioxide 21.0 Anion Gap 9 BUN 29 H Creatinine 1.66 H Estimated GFR 32 L POC Glucose Random Glucose 235 H Calcium 10.3 H Phosphorus 2.1 L Magnesium 1.7 Total Bilirubin 0.3 AST 16 ALT 20 Alkaline Phosphatase 242 H Total Protein 7.7 Albumin 3.1 L Lipase 19 L Urine Color Yellow Urine Clarity Cloudy H Urine pH 5.0 Ur Specific [place] 1.022 Urine Protein 30 H Urine Glucose (UA) 500 or greater Urine Ketones Trace H Urine Occult Blood Negative Urine Nitrate Negative Urine Bilirubin Negative Urine Urobilinogen 2.0 H Ur Leukocyte Esterase Moderate H Urine RBC 1 Urine WBC 166 H Urine WBC Clumps Many H Ur Squamous Epith Cells 2 Urine Bacteria Many H Hyaline Casts 9 Micro UA Comment Culture indicated Ur Microscopic Review Not Reportable Urine Culture Comments Culture indicated Tacrolimus 04/22/18 04/22/18 04/22/18 10:05 10:05 10:05 WBC RBC Hgb Hct MCV MCH MCHC RDW Plt Count MPV Neut % (Auto) Lymph % (Auto) [place] % (Auto) Eos % (Auto) Baso % (Auto) Neut # (Auto) Lymph # (Auto) [place] # (Auto) Eos # (Auto) Baso # (Auto) WBC Differential Differential Comment Sodium Potassium Chloride Carbon Dioxide Anion Gap BUN Creatinine Estimated GFR POC Glucose Random Glucose Calcium Phosphorus Cancelled Magnesium Cancelled Total Bilirubin AST ALT Alkaline Phosphatase Total Protein Albumin Lipase Urine Color Urine Clarity Urine pH Ur Specific [place] Urine Protein Urine Glucose (UA) Urine Ketones Urine Occult Blood Urine Nitrate Urine Bilirubin Urine Urobilinogen Ur Leukocyte Esterase Urine RBC Urine WBC Urine WBC Clumps Ur Squamous Epith Cells Urine Bacteria Hyaline Casts Micro UA Comment Ur Microscopic Review Urine Culture Comments Tacrolimus 9.7 04/22/18 04/22/18 04/23/18 16:44 22:25 03:45 WBC RBC Hgb Hct MCV MCH MCHC RDW Plt Count MPV Neut % (Auto) Lymph % (Auto) [place] % (Auto) Eos % (Auto) Baso % (Auto) Neut # (Auto) Lymph # (Auto) [place] # (Auto) Eos # (Auto) Baso # (Auto) WBC Differential Differential Comment Sodium Potassium Chloride Carbon Dioxide Anion Gap BUN Creatinine Estimated GFR POC Glucose 222 H 212 H 162 H Random Glucose Calcium Phosphorus Magnesium Total Bilirubin AST ALT Alkaline Phosphatase Total Protein Albumin Lipase Urine Color Urine Clarity Urine pH Ur Specific [place] Urine Protein Urine Glucose (UA) Urine Ketones Urine Occult Blood Urine Nitrate Urine Bilirubin Urine Urobilinogen Ur Leukocyte Esterase Urine RBC Urine WBC Urine WBC Clumps Ur Squamous Epith Cells Urine Bacteria Hyaline Casts Micro UA Comment Ur Microscopic Review Urine Culture Comments Tacrolimus 04/23/18 05:35 WBC RBC Hgb Hct MCV MCH MCHC RDW Plt Count MPV Neut % (Auto) Lymph % (Auto) [place] % (Auto) Eos % (Auto) Baso % (Auto) Neut # (Auto) Lymph # (Auto) [place] # (Auto) Eos # (Auto) Baso # (Auto) WBC Differential Differential Comment Sodium 134 L Potassium 4.6 Chloride 105 Carbon Dioxide 21.1 Anion Gap 8 BUN 18 Creatinine 1.15 H Estimated GFR 49 L POC Glucose Random Glucose 104 D Calcium 9.1 D Phosphorus Magnesium Total Bilirubin AST ALT Alkaline Phosphatase Total Protein Albumin Lipase Urine Color Urine Clarity Urine pH Ur Specific [place] Urine Protein Urine Glucose (UA) Urine Ketones Urine Occult Blood Urine Nitrate Urine Bilirubin Urine Urobilinogen Ur Leukocyte Esterase Urine RBC Urine WBC Urine WBC Clumps Ur Squamous Epith Cells Urine Bacteria Hyaline Casts Micro UA Comment Ur Microscopic Review Urine Culture Comments Tacrolimus - Imaging Impressions Abdomen X-Ray 04/22/18 00:00 CONCLUSION: Negative examination. Abdomen/Pelvis CT 04/22/18 00:00 CONCLUSION: 1. No acute findings. The overall appearance of CT scan is stable compared to 04/04/2018 with multiple findings as described above. Assessment and Plan - Assessment (1) Renal transplant recipient Code(s): Z94.0 - Kidney transplant status Status: Acute (2) Renal insufficiency Code(s): N28.9 - Disorder of kidney and ureter, unspecified Status: Acute (3) DM (diabetes mellitus) Code(s): E11.9 - Type 2 diabetes mellitus without complications Status: Acute (4) Abdominal pain Code(s): R10.9 - Unspecified abdominal pain Status: Acute - Plan Patient with complex medical and surgical history, s/p living donor kidney transplant in June 2017 in [place]. Was seen at [facility] since then for consideration for multivisceral transplant. Was on TPN, but has since refused to resume, although its unclear, how well she will do nutritionally due to the amount of remaining bowel. She seemed to be doing okay post discharge. Her urinary tract infection seemed to be responding to antibiosis, however, she now re-presents with what seems to be either a new or recurrent UTI. Overnight patient lost her IV x 2. So had limited hydration. Is a difficult venous access patient, so will have vascular access nurse place IV. Some of AM labs pending. had NG placed, but it came out with belching. CT with some stomach and rectosigmoid distension. Suspect, these portions of her GI tract aren't working well. Will give dulcolax suppository. Will plan to place tunneled central line for antibiosis, on Wednesday.
[2018-04-23 08:44] LABS: Baso # (Auto) 0.2 th/mm3 (0.0-0.2); Baso % (Auto) 1.4 % (0.0-2.0); Eos # (Auto) 0.2 th/mm3 (0.0-0.4); Eos % (Auto) 1.9 % (0.0-4.0); Hematocrit 28.9 % (35.0-46.0); Hemoglobin 9.3 gm/dL (11.6-15.3); Lymph % (Auto) 16.8 % (9.0-44.0); Mean Corpuscular HGB Conc 32.3 % (32.0-36.0); Mean Corpuscular Hemoglobin 28.1 pg (27.0-34.0); Mean Corpuscular Volume 87.2 fL (80.0-100.0); Mono # (Auto) 1.4 th/mm3 (0.0-0.9); Mono % (Auto) 12.2 % (0.0-8.0); Neut # (Auto) 7.9 th/mm3 (1.8-7.7); Neut % (Auto) 67.7 % (16.0-70.0); Platelet Count 770 th/mm3 (150-450); Red Blood Count 3.31 mil/mm3 (4.00-5.30); Red Cell Distribution Width 16.8 % (11.6-17.2); White Blood Count 11.7 th/mm3 (4.0-11.0)
[2018-04-23] MEDS ORDERED: Pantoprazole Inj 40 MG Vial IV.PUSH SCH (09:00)
[2018-04-23] MEDS: Insulin NovoLOG Aspart Correctional Sugar Inj SQ SCH ×3 (09:03→16:36)
[2018-04-23 09:05] LABS: Magnesium 1.6 mg/dL (1.5-2.5)
[2018-04-23] MEDS: Carvedilol 12.5 MG Tablet PO SCH ×2 (09:05→22:02)
[2018-04-23 09:06] LABS: Phosphorus 2.5 mg/dL (2.5-4.9)
[2018-04-23] MEDS: Sod Chloride 0.9% Inj 1,000 ML IV.CONT SCH ×2 (09:06→16:39)
--- NOTE | 2018-04-23 10:30 | P.PNIM ---
Subjective Interval history: Patient reports she is feeling slightly better today. She was able to tolerate breakfast. Lost IV access. She inquired about her platelet counts but stated she will not take anagrelide again. Wants to know if there is alternative. Physical Exam Vital signs: Vital Signs 04/22/18 12:05 04/22/18 14:25 04/22/18 16:00 Temperature 98 F Pulse Rate 86 75 80 Respiratory Rate 17 17 16 Blood Pressure 130/80 142/56 H 116/59 L Pulse Oximetry 98 100 98 04/22/18 19:00 04/22/18 20:00 04/22/18 21:00 Temperature 98.8 F Pulse Rate 87 96 H 82 Respiratory Rate 18 Blood Pressure 129/70 Pulse Oximetry 100 04/22/18 22:00 04/22/18 23:00 04/23/18 00:00 Temperature 98.1 F Pulse Rate 82 85 82 Respiratory Rate 18 Blood Pressure 122/70 Pulse Oximetry 99 04/23/18 01:00 04/23/18 02:00 04/23/18 03:00 Temperature Pulse Rate 82 82 87 Respiratory Rate Blood Pressure Pulse Oximetry 04/23/18 04:00 04/23/18 05:00 04/23/18 06:00 Temperature 99.1 F Pulse Rate 81 82 76 Respiratory Rate 18 Blood Pressure 117/67 Pulse Oximetry 99 04/23/18 07:00 04/23/18 08:00 Temperature 98.3 F Pulse Rate 75 80 Respiratory Rate 16 Blood Pressure 120/76 Pulse Oximetry 99 Intake & Output 04/22/18 04/23/18 04/23/18 18:59 06:59 18:59 Intake Total 1400 / 1400 1700 / 1700 1000 / 1000 Output Total 1200 / 1200 Balance 1400 / 1400 500 / 500 1000 / 1000 Weight 56.4 kg 61.5 kg Intake: IV 1200 / 1200 1100 / 1100 1000 / 1000 NS Inj 1,000 ML @ 100 mls/hr IV 1000 / 1000 1000 / 1000 .CONT .Q10H RONALD Rx#:[id number] Merrem Inj 1,000 MG In NS Inj 100 / 100 100 / 100 100 ML @ 200 mls/hr IV.SIG Q12H RONALD Rx#:[id number] NS Inj 1,000 ML @ Wide Open IV. 1000 / 1000 SIG BOLUS ONE Rx#:[id number] Tazicef Inj 2,000 MG In NS Inj 100 / 100 100 ML @ 200 mls/hr IV.SIG ONCE ONE Rx#:[id number] Oral 200 / 200 600 / 600 Output: Urine 1200 / 1200 Other: Date of Last Bowel Movement 04/23/18 # Bowel Movements 0 Weight On Admission 56.4 kg Narrative: GENERAL: Patient appears older than stated age. CARDIOVASCULAR: Normal rate and regular rhythm without murmurs, gallops, or rubs. RESPIRATORY: Good respiratory efforts. Breath sounds equal and clear to auscultation bilaterally. GASTROINTESTINAL: Abdomen soft, non-tender, non-distended. Normal active bowel sounds MUSCULOSKELETAL: Extremities without cyanosis, or edema. NEURO: Alert & Oriented x4 to person, place, time, situation. Moves all ext x4 PSYCH: Appropriate mood and affect. Results - Labs CBC & Chem 7: 04/23/18 08:21 04/23/18 05:35 Laboratory Results - last 24 hr 04/22/18 04/22/18 04/22/18 09:50 10:05 10:05 WBC 17.6 H RBC 3.49 L Hgb 9.7 L Hct 30.6 L MCV 87.7 MCH 27.7 MCHC 31.6 L RDW 17.2 Plt Count 739 H D MPV 9.5 Neut % (Auto) 85.4 H Lymph % (Auto) 2.7 L [place] % (Auto) 10.7 H Eos % (Auto) 0.7 Baso % (Auto) 0.5 Neut # (Auto) 15.1 H Lymph # (Auto) 0.5 L [place] # (Auto) 1.9 H Eos # (Auto) 0.1 Baso # (Auto) 0.1 WBC Differential . Differential Comment Auto diff final Sodium 131 L Potassium 4.8 Chloride 101 Carbon Dioxide 21.0 Anion Gap 9 BUN 29 H Creatinine 1.66 H Estimated GFR 32 L POC Glucose Random Glucose 235 H Calcium 10.3 H Phosphorus 2.1 L Magnesium 1.7 Total Bilirubin 0.3 AST 16 ALT 20 Alkaline Phosphatase 242 H Total Protein 7.7 Albumin 3.1 L Lipase 19 L Urine Color Yellow Urine Clarity Cloudy H Urine pH 5.0 Ur Specific [place] 1.022 Urine Protein 30 H Urine Glucose (UA) 500 or greater Urine Ketones Trace H Urine Occult Blood Negative Urine Nitrate Negative Urine Bilirubin Negative Urine Urobilinogen 2.0 H Ur Leukocyte Esterase Moderate H Urine RBC 1 Urine WBC 166 H Urine WBC Clumps Many H Ur Squamous Epith Cells 2 Urine Bacteria Many H Hyaline Casts 9 Micro UA Comment Culture indicated Ur Microscopic Review Not Reportable Urine Culture Comments Culture indicated Tacrolimus 04/22/18 04/22/18 04/22/18 10:05 10:05 10:05 WBC RBC Hgb Hct MCV MCH MCHC RDW Plt Count MPV Neut % (Auto) Lymph % (Auto) [place] % (Auto) Eos % (Auto) Baso % (Auto) Neut # (Auto) Lymph # (Auto) [place] # (Auto) Eos # (Auto) Baso # (Auto) WBC Differential Differential Comment Sodium Potassium Chloride Carbon Dioxide Anion Gap BUN Creatinine Estimated GFR POC Glucose Random Glucose Calcium Phosphorus Cancelled Magnesium Cancelled Total Bilirubin AST ALT Alkaline Phosphatase Total Protein Albumin Lipase Urine Color Urine Clarity Urine pH Ur Specific [place] Urine Protein Urine Glucose (UA) Urine Ketones Urine Occult Blood Urine Nitrate Urine Bilirubin Urine Urobilinogen Ur Leukocyte Esterase Urine RBC Urine WBC Urine WBC Clumps Ur Squamous Epith Cells Urine Bacteria Hyaline Casts Micro UA Comment Ur Microscopic Review Urine Culture Comments Tacrolimus 9.7 04/22/18 04/22/18 04/23/18 16:44 22:25 03:45 WBC RBC Hgb Hct MCV MCH MCHC RDW Plt Count MPV Neut % (Auto) Lymph % (Auto) [place] % (Auto) Eos % (Auto) Baso % (Auto) Neut # (Auto) Lymph # (Auto) [place] # (Auto) Eos # (Auto) Baso # (Auto) WBC Differential Differential Comment Sodium Potassium Chloride Carbon Dioxide Anion Gap BUN Creatinine Estimated GFR POC Glucose 222 H 212 H 162 H Random Glucose Calcium Phosphorus Magnesium Total Bilirubin AST ALT Alkaline Phosphatase Total Protein Albumin Lipase Urine Color Urine Clarity Urine pH Ur Specific [place] Urine Protein Urine Glucose (UA) Urine Ketones Urine Occult Blood Urine Nitrate Urine Bilirubin Urine Urobilinogen Ur Leukocyte Esterase Urine RBC Urine WBC Urine WBC Clumps Ur Squamous Epith Cells Urine Bacteria Hyaline Casts Micro UA Comment Ur Microscopic Review Urine Culture Comments Tacrolimus 04/23/18 04/23/18 04/23/18 05:35 08:06 08:21 WBC 11.7 H RBC 3.31 L Hgb 9.3 L Hct 28.9 L MCV 87.2 MCH 28.1 MCHC 32.3 RDW 16.8 Plt Count 770 H MPV 9.0 Neut % (Auto) 67.7 Lymph % (Auto) 16.8 [place] % (Auto) 12.2 H Eos % (Auto) 1.9 Baso % (Auto) 1.4 Neut # (Auto) 7.9 H Lymph # (Auto) 2.0 [place] # (Auto) 1.4 H Eos # (Auto) 0.2 Baso # (Auto) 0.2 WBC Differential . Differential Comment Auto diff final Sodium 134 L Potassium 4.6 Chloride 105 Carbon Dioxide 21.1 Anion Gap 8 BUN 18 Creatinine 1.15 H Estimated GFR 49 L POC Glucose 64 L Random Glucose 104 D Calcium 9.1 D Phosphorus Magnesium Total Bilirubin AST ALT Alkaline Phosphatase Total Protein Albumin Lipase Urine Color Urine Clarity Urine pH Ur Specific [place] Urine Protein Urine Glucose (UA) Urine Ketones Urine Occult Blood Urine Nitrate Urine Bilirubin Urine Urobilinogen Ur Leukocyte Esterase Urine RBC Urine WBC Urine WBC Clumps Ur Squamous Epith Cells Urine Bacteria Hyaline Casts Micro UA Comment Ur Microscopic Review Urine Culture Comments Tacrolimus 04/23/18 08:21 WBC RBC Hgb Hct MCV MCH MCHC RDW Plt Count MPV Neut % (Auto) Lymph % (Auto) [place] % (Auto) Eos % (Auto) Baso % (Auto) Neut # (Auto) Lymph # (Auto) [place] # (Auto) Eos # (Auto) Baso # (Auto) WBC Differential Differential Comment Sodium Potassium Chloride Carbon Dioxide Anion Gap BUN Creatinine Estimated GFR POC Glucose Random Glucose Calcium Phosphorus 2.5 Magnesium 1.6 Total Bilirubin AST ALT Alkaline Phosphatase Total Protein Albumin Lipase Urine Color Urine Clarity Urine pH Ur Specific [place] Urine Protein Urine Glucose (UA) Urine Ketones Urine Occult Blood Urine Nitrate Urine Bilirubin Urine Urobilinogen Ur Leukocyte Esterase Urine RBC Urine WBC Urine WBC Clumps Ur Squamous Epith Cells Urine Bacteria Hyaline Casts Micro UA Comment Ur Microscopic Review Urine Culture Comments Tacrolimus - Imaging Impressions Abdomen X-Ray 04/22/18 00:00 CONCLUSION: Negative examination. Abdomen/Pelvis CT 04/22/18 00:00 CONCLUSION: 1. No acute findings. The overall appearance of CT scan is stable compared to 04/04/2018 with multiple findings as described above. Assessment and Plan - Plan 57-year-old female with history of numerous abdominal surgeries, gastroparesis, renal transplant who presents to the emergency department due to dehydration, nausea and dry heaves. Patient was recently discharged home on Augmentin for UTI. Patient complains of significant epigastric pain and reflux symptoms despite taking potent PPI. Patient found to have sepsis secondary to UTI. Transplant surgery as well as infectious disease following. Sepsis (WBC 17.9K, heart rate 97, suspected infection UTI). Improving. -Continue meropenem per infectious disease. WBC down to 11,000 today. -Continue IV fluid today and repeat labs in the morning. - Follow cultures. Abdominal pain: History of kidney transplant History of polycystic kidney disease Acute on Chronic kidney disease -Renal functions improving, creatinine down to 1.15 today. -Continue normal saline at 100 cc/h. -Dilaudid changed to oral as needed for abdominal pain per transplant service. -I will keep Benadryl p.o. as needed for any pruritus. -KUB unremarkable. -CT of the abdomen is unremarkable compared to previous imaging. -Case discussed with transplant service, Dr. Patel. Continue to treat infection. Hydration and monitor labs. Thrombocytosis: Possibly reactive. Previously seen by hematology/oncology. -She has been on anagrelide in the past which she states she stopped taking on her own last week. She states she will no longer take this medication and is asking for alternatives. - We will consult hematology/oncology to see if there is any alternative. Severe GERD Gastroparesis -Protonix 40 mg p.o. twice daily. -Can consider Reglan PRN Diabetes mellitus -Levemir 10 units nightly and sliding scale insulin. Full code. Lovenox. Discussed Condition With: Dr. Patel and RN.
--- NOTE | 2018-04-23 13:15 | MB ---
cc: Nam Garza MD DATE: 04/23/2018 REQUESTING PHYSICIAN: Dr. Cochran. REASON FOR CONSULTATION: Evaluation for thrombocytosis. HISTORY OF PRESENT ILLNESS: A 57-year-old lady with a long and complicated medical and surgical history, who was recently hospitalized for fevers and was also having abdominal pain. She had a history of urinary tract infection, recently treated in the hospital, and was also noted to have thrombocytosis, hence, I was asked to consult her for her thrombocytosis. She gives me the history that she had a splenectomy for a complicated chronic pancreatitis about 5 years ago. Subsequently, her platelets have been high as expected, but she also had a bone marrow biopsy, and was ruled out for essential thrombocytosis. Despite that, she was put on anagrelide for rising platelet counts beyond 1.5 million at [facility] in [place]. Subsequently, she had side effects including hair loss, etc. with the anagrelide, and she does not want to continue that at this point. She has been told that she had JAK2 mutation test that was negative, yet she had been recommended to be on anagrelide, according to her. She never received either Jakafi or hydroxyurea. She had multiple other medical problems including polycystic liver and kidney disease, resulting in her having a kidney transplant, and also being considered for multi-organ transplant. 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 As mentioned, she had her total pancreatectomy and splenectomy, and at this point because of her underlying cystic disease, she is being considered for multiorgan transplant. She is not bleeding or bruising, but she has multiple PEs and DVTs. She had 2 episodes of DVTs and PEs following surgeries, initially, following a right nephrectomy, and subsequently an IVC filter was placed, and as a result of the multiple PEs and DVTs, she has been on long-term Lovenox. She is not bleeding or bruising. REVIEW OF SYSTEMS: No headaches, back pain or bone pains. No cough, chest pain or shortness of breath, chronic abdominal pain. Evaluated with a CT scan, which did not show any acute problem. She has no fevers, night sweats, or weight loss of recent onset. She has lost weight over the last several months, and she has been on TPN. She has had blood in the urine while she was on anticoagulation, which she stopped on her own, and that has been resumed in the hospital at this time. CURRENT MEDICATIONS: Include: 1. Dulcolax. 2. Lactulose. 3. Milk of magnesia. 4. Senokot. 5. Zofran p.r.n. 6. Dilaudid p.r.n. 7. Meropenem. 8. Coreg. 9. Levemir. 10. NovoLog. 11. Prograf. 12. Protonix. 13. Lovenox 40 mg subcutaneous every 24 hours. PAST MEDICAL HISTORY: In addition to the above, she has gastroparesis and surgeries as above. 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 She had a Reza-en-Y, duodenal jejunostomy, hepaticojejunostomy, pancreaticojejunostomy. These were in 2010. In 2011, she had exploratory laparotomy and closure of enterotomy in the pancreaticobiliary limb, and terminal ileum through distal sigmoid resection. In 06/2017, she had unrelated donor renal transplant, after left nephrectomy as she had a prior right nephrectomy. In 08/2017, she had exploratory laparotomy and revision of ileocolic anastomosis, status post septic shock with E coli, hydronephrosis of the transplanted kidney, and left femoral vein DVT in 09/2017. FAMILY HISTORY: Noncontributory. ALLERGIES: METRONIDAZOLE, OXYCODONE, OXYTETRACYCLINE, FENTANYL, AND FILGRASTIM. PHYSICAL EXAMINATION: GENERAL: Thinly built, middle-aged lady, appearing older , no apparent distress. HEAD AND NECK: Pallor present. No icterus. No palpable adenopathy in the neck or axilla. No petechia, ecchymosis or bruises except at the puncture sites. No nosebleeds or gum bleeds. GENERAL: Alert and oriented x4. CARDIOVASCULAR: S1, S2, regular rate and rhythm. LUNGS: Bilaterally clear without crackles or wheeze. ABDOMEN: Flat with multiple surgical scars. Firm and nontender. No organomegaly could be felt. EXTREMITIES: No edema or evidence of active DVTs at this time. LABORATORY DATA: Reviewed. Her platelets have been down to 83,000, when she was admitted with urosepsis, but currently up to 770,000, and hemoglobin is low at 9.3, white count is 11.7 with 12% monocytes and 67% neutrophils. Chemistry significant for creatinine of 1.15 and GFR of 49. I reviewed her prior CBCs and platelets were at 2 million. 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 An underlying bone marrow-based problem such as essential thrombocytosis and other myeloproliferative disorders are not ruled out at this time. Fortunately, she is on Lovenox, which will need to be continued as a prophylaxis for her deep venous thromboses and PEs, even though she has an IVC filter in place. This is because of the fact that she could have an underlying hypercoagulable state, and/or a myeloproliferative disorder that could cause her to have PEs, despite the IVC filter. In regard to the chronic thrombocytosis, it does appear to be secondary to the splenectomy, but as mentioned, underlying myeloproliferative disorder including essential thrombocytosis is not ruled out. The patient had a bone marrow biopsy 5 years ago, and we do not have the results at this time, but she was told that she does not have an essential thrombocytosis. She also claims that JAK2 test was performed, and that was negative. At this point, I recommend continuing her Lovenox anticoagulation, and will repeat her JAK2 mutation testing, as well as check other mutations for myeloproliferative disorders including BCR-ABL by FISH, MPL mutation, and calreticulin mutation. If these tests are negative, she will have to have a repeat bone marrow biopsy for evaluation of an underlying myeloproliferative disorder. All these issues were discussed with the patient, and her questions answered. I will see her in followup. She does not want to go back on the anagrelide, but if the platelet count keeps climbing beyond the million, we will consider hydroxyurea as an alternative. MD MASSIMO Avila/ , 12:22 PM , 12:41 PM
[2018-04-23] MEDS: Enoxaparin Inj 40 MG/0.4 ML Syringe SQ SCH (17:01)
[2018-04-23] MEDS: HYDROmorphone PF Inj 2 MG/ML Vial IV.PUSH PRN ×2 (18:26→22:19)
[2018-04-23] MEDS ORDERED: Butalbital/APAP/Caff 50/325/40 MG Tablet PO ONE (21:07)
[2018-04-23] MEDS: Insulin Detemir Inj 1,000 UNIT/10 ML Vial SQ SCH (22:02)
--- NOTE | 2018-04-23 23:56 | MB ---
cc: Steven Le MD DATE: 04/23/2018 REASON FOR CONSULTATION: Post-renal transplant with acute kidney injury. HISTORY OF PRESENT ILLNESS: This is a 57-year-old female with past medical history of renal transplant, history of recurrent urinary tract infection, history of acute kidney injury who came to the hospital with a complaint of decreased urine output. I was called to see the patient because she has history of renal transplant. The patient was recently discharged from the hospital and she has a urinary tract infection and recently she was taking Augmentin for urinary tract infection, and the patient started complaining of epigastric pain with some nausea, vomiting and also noticed to have decreased urinary output. When the patient came here, it was found that her creatinine was elevated and it was 1.66. The patient was started on IV fluid and also she is getting cefazolin 2 g, one dose was given, and she is on meropenem. The patient is still complaining of her epigastric pain. Her nausea and vomiting is better and she started passing more urine. She has this dysuria off and on. The patient also has history of multiple bone surgery and she has a history of dumping syndrome with decreased absorption. PAST MEDICAL HISTORY: Diabetes mellitus, history of renal transplant, gastroesophageal reflux disease, gastroparesis, dumping syndrome. PAST SURGICAL HISTORY: Colectomy, renal transplant surgery, splenectomy, pancreatectomy. REVIEW OF SYSTEMS: The patient denies weakness, feeling tired. She has decreased appetite, has nausea, vomiting, which has been going on for the last few days associated with epigastric pain. She does not have any diarrhea. She has dysuria off and on and noticed decreased urine output since yesterday. SOCIAL HISTORY: The patient has no history of smoking now, but she has a past history of smoking, stopped in 2008. There is no history of heavy alcoholism. FAMILY HISTORY: Noncontributory. ALLERGIES: METRONIDAZOLE, OXYCODONE, FENTANYL, FILGRASTIM and OXYTETRACYCLINE. MEDICATIONS: Currently she is on following medications: 1. Tylenol as needed. 2. Lipitor as needed. 3. Milk of magnesia as needed. 4. Dulcolax as needed. 5. Coreg 12.5 mg b.i.d. 6. Cefazolin 1 dose was given, 2 grams. 7. Lovenox 40 mg subcutaneous every 24 hours. 8. Dilaudid 2 mg every 4 hours p.r.n. 9. Insulin as per sliding scale. 10. Insulin Levemir 10 units subcutaneous at bedtime. 11 Lactulose 30 mL p.r.n. 12. Meropenem 1 g. 13. Zofran as needed. 14. Protonix as needed. 15. Prograf 1 mg p.o. every 12 hours. PHYSICAL EXAMINATION: GENERAL: The patient is awake, alert, not in acute distress. VITAL SIGNS: Blood pressure is 126/67, temperature 98.1, oxygen saturation 99%. She did develop mid constricted. HEENT: Nonicteric sclerae conjunctivae, anicteric. NECK: Supple. JVD not reproduce The patient has bilateral good air entry with occasional wheezing. HEART: S1, S2. Regular rate and rhythm. ABDOMEN: Soft, bilateral epigastric tenderness. There is no rebound, rigidity. Bowel sounds positive. EXTREMITIES: There is no pedal edema. LABORATORY DATA: WBC count 17.6 on admission, hemoglobin 9.3, platelet count of 770. Sodium 134, potassium 4.6, chloride 105, bicarbonate 21.1, BUN 18, creatinine 1.15, last glucose 230. Calcium is 9.1, magnesium 1.6, phosphorus 2.5. Urinalysis showing cloudy urine with moderate leukocyte esterase, WBCs 166. Prograf level was 9.7 and now is 10.8. IMAGING STUDIES: The patient had a CT scan of the abdomen and pelvis done without IV contrast and it shows the spleen surgically absent. Pancreas is unremarkable without mass. Bilateral nephrectomy, ____. Diffuse osteopenia, cholecystectomy. The patient had abdominal x-ray done, which shows an IVC filter and surgical clips identified. ASSESSMENT AND PLAN: 1. Urinary tract infection. 2. Post renal transplant with acute kidney injury. 3. Dehydration. 4. Epigastric pain and possible gastritis. 5. Diabetes mellitus. The patient has chronic kidney disease with renal transplant and there was some acute worsening, possibly prerenal or possibility of acute tubular necrosis. Her creatinine is better. Continue IV fluid. Follow the culture results on the culture so far pending. ID has been following the patient. The Prograf level is slightly elevated. I have discussed with the patient about how long she is taking the same dose and then, if needed, to reduce the dose. Thank you for the consultation. Over the weekend, I will follow the patient. The patient has been following with Dr. Hughes and she will resume her care on Wednesday morning. MD DORA Fox/ino/bassam , 05:59 PM , 06:11 PM
[2018-04-24] MEDS: HYDROmorphone PF Inj 2 MG/ML Vial IV.PUSH PRN ×6 (03:07→21:59)
[2018-04-24] MEDS: Insulin NovoLOG Aspart Correctional Sugar Inj SQ SCH ×4 (04:00→17:04)
[2018-04-24] MEDS: Sod Chloride 0.9% Inj 1,000 ML IV.CONT SCH ×2 (04:02→12:38)
[2018-04-24] MEDS ORDERED: Vancomycin Inj 1,000 MG in Sodium Chlor 0.9% Inj 250 ML IV.SIG SCH (08:00)
[2018-04-24] MEDS ORDERED: ceFAZolin 2 GM IV; once IV.SIG SCH (08:00)
[2018-04-24] MEDS: Carvedilol 12.5 MG Tablet PO SCH ×2 (08:04→21:27)
[2018-04-24] MEDS ORDERED: Lidocaine 1%/Epinephrine 1:100,000 Inj 30 ML Vial ONE (09:32)
[2018-04-24] MEDS ORDERED: *Heparin Central Flush 100 UNIT/ML 5 ML Vial PERIprocedural ONLY IV.FLUSH ONE (09:33)
[2018-04-24] MEDS ORDERED: Heparin Central Flush 100 UNIT/ML 5 ML Vial IV.FLUSH PRN (10:05)
[2018-04-24 10:46] LABS: Baso % (Auto) 0.5 % (0.0-2.0); Eos # (Auto) 0.3 th/mm3 (0.0-0.4); Eos % (Auto) 3.6 % (0.0-4.0); Hematocrit 26.2 % (35.0-46.0); Hemoglobin 8.2 gm/dL (11.6-15.3); Lymph # (Auto) 0.3 th/mm3 (1.0-4.8); Lymph % (Auto) 3.3 % (9.0-44.0); Mean Corpuscular HGB Conc 31.4 % (32.0-36.0); Mean Corpuscular Hemoglobin 27.6 pg (27.0-34.0); Mean Corpuscular Volume 87.9 fL (80.0-100.0); Mean Platelet Volume 9.1 fL (7.0-11.0); Mono # (Auto) 1.1 th/mm3 (0.0-0.9); Mono % (Auto) 12.3 % (0.0-8.0); Neut # (Auto) 6.9 th/mm3 (1.8-7.7); Neut % (Auto) 80.3 % (16.0-70.0); Platelet Count 862 th/mm3 (150-450); Red Blood Count 2.98 mil/mm3 (4.00-5.30); White Blood Count 8.6 th/mm3 (4.0-11.0)
[2018-04-24 11:02] LABS: Calcium 8.9 mg/dL (8.5-10.1); Carbon Dioxide 23.5 meq/L (21.0-32.0); Magnesium 1.5 mg/dL (1.5-2.5); Phosphorus 2.6 mg/dL (2.5-4.9); Potassium 4.9 meq/L (3.5-5.1)
--- NOTE | 2018-04-24 11:51 | P.PNIM ---
Subjective Interval history: Patient woke up from her sleep on my evaluation. She is requesting IV Dilaudid for headache. States that Fioricet, Triptans, oral medications do not work for her. She states she cannot function with the headache. Physical Exam Vital signs: Vital Signs 04/23/18 12:00 04/23/18 13:00 04/23/18 14:00 Temperature 98.2 F Pulse Rate 74 81 80 Respiratory Rate 16 Blood Pressure 127/64 Pulse Oximetry 100 04/23/18 15:00 04/23/18 16:00 04/23/18 17:00 Temperature 98.1 F Pulse Rate 69 77 98 H Respiratory Rate 16 Blood Pressure 126/67 Pulse Oximetry 99 04/23/18 18:00 04/23/18 19:00 04/23/18 20:00 Temperature 97.5 F L Pulse Rate 73 70 70 Respiratory Rate 18 Blood Pressure 161/76 H Pulse Oximetry 98 04/23/18 20:44 04/23/18 21:00 04/23/18 22:00 Temperature Pulse Rate 62 66 Respiratory Rate 18 Blood Pressure Pulse Oximetry 04/23/18 23:00 04/23/18 23:15 04/24/18 00:00 Temperature 97.5 F L Pulse Rate 73 73 78 Respiratory Rate 18 16 Blood Pressure 149/72 H Pulse Oximetry 99 04/24/18 01:00 04/24/18 02:00 04/24/18 03:00 Temperature Pulse Rate 65 68 67 Respiratory Rate Blood Pressure Pulse Oximetry 04/24/18 03:40 04/24/18 04:00 04/24/18 05:00 Temperature 97.7 F Pulse Rate 70 69 70 Respiratory Rate 18 16 Blood Pressure 144/73 H Pulse Oximetry 98 04/24/18 06:00 04/24/18 07:00 04/24/18 08:00 Temperature Pulse Rate 65 61 72 Respiratory Rate Blood Pressure Pulse Oximetry Intake & Output 04/23/18 04/24/18 04/24/18 18:59 06:59 18:59 Intake Total 3300 / 3300 1580 / 1580 100 / 100 Output Total 1400 / 1400 1000 / 1000 Balance 1900 / 1900 580 / 580 100 / 100 Weight 57.4 kg Intake: IV 2100 / 2100 1100 / 1100 100 / 100 NS Inj 1,000 ML @ 100 mls/hr IV 2000 / 1999 1000 / 1000 .CONT .Q10H [facility] Rx#:[id number] Merrem Inj 1,000 MG In NS Inj 100 / 100 100 / 100 100 / 100 100 ML @ 200 mls/hr IV.SIG Q12H [facility] Rx#:[id number] Oral 1200 / 1200 480 / 480 Output: Urine 1400 / 1400 1000 / 1000 Other: Date of Last Bowel Movement 04/23/18 04/23/18 # Bowel Movements 5 Narrative: GENERAL: Patient appears older than stated age. In no acute distress. CARDIOVASCULAR: Normal rate and regular rhythm without murmurs, gallops, or rubs. RESPIRATORY: Good respiratory efforts. Breath sounds equal and clear to auscultation bilaterally. GASTROINTESTINAL: Abdomen soft, non-tender, non-distended. Normal active bowel sounds MUSCULOSKELETAL: Extremities without cyanosis, or edema. NEURO: Alert & Oriented x4 to person, place, time, situation. Moves all ext x4 PSYCH: Calm and at times tearful. Results - Labs CBC & Chem 7: 04/24/18 09:55 04/24/18 09:55 Laboratory Results - last 24 hr 04/23/18 04/23/18 04/23/18 08:21 15:56 18:27 WBC RBC Hgb Hct MCV MCH MCHC RDW Plt Count MPV Neut % (Auto) Lymph % (Auto) Ripley % (Auto) Eos % (Auto) Baso % (Auto) Neut # (Auto) Lymph # (Auto) [place]ipley # (Auto) Eos # (Auto) Baso # (Auto) WBC Differential Differential Comment APTT 29.4 Sodium Potassium Chloride Carbon Dioxide Anion Gap BUN Creatinine Estimated GFR POC Glucose 230 H Random Glucose Calcium Phosphorus Magnesium Tacrolimus 10.8 04/23/18 04/24/18 04/24/18 21:52 07:59 09:55 WBC RBC Hgb Hct MCV MCH MCHC RDW Plt Count MPV Neut % (Auto) Lymph % (Auto) [place]y % (Auto) Eos % (Auto) Baso % (Auto) Neut # (Auto) Lymph # (Auto) [place]y # (Auto) Eos # (Auto) Baso # (Auto) WBC Differential Differential Comment APTT Sodium Potassium Chloride Carbon Dioxide Anion Gap BUN Creatinine Estimated GFR POC Glucose 189 H 267 H Random Glucose Calcium Phosphorus Cancelled Magnesium Tacrolimus 04/24/18 04/24/18 04/24/18 09:55 09:55 09:55 WBC 8.6 RBC 2.98 L Hgb 8.2 L Hct 26.2 L MCV 87.9 MCH 27.6 MCHC 31.4 L RDW 17.0 Plt Count 862 H MPV 9.1 Neut % (Auto) 80.3 H Lymph % (Auto) 3.3 L [place]y % (Auto) 12.3 H Eos % (Auto) 3.6 Baso % (Auto) 0.5 Neut # (Auto) 6.9 Lymph # (Auto) 0.3 L [place]y # (Auto) 1.1 H Eos # (Auto) 0.3 Baso # (Auto) 0.0 WBC Differential . Differential Comment Auto diff final APTT Sodium 135 L Potassium 4.9 Chloride 106 Carbon Dioxide 23.5 Anion Gap 6 BUN 12 Creatinine 1.01 H Estimated GFR 56 L POC Glucose Random Glucose 243 H D Calcium 8.9 Phosphorus 2.6 Magnesium Cancelled 1.5 Tacrolimus 04/24/18 11:06 WBC RBC Hgb Hct MCV MCH MCHC RDW Plt Count MPV Neut % (Auto) Lymph % (Auto) Ripley % (Auto) Eos % (Auto) Baso % (Auto) Neut # (Auto) Lymph # (Auto) Ripley # (Auto) Eos # (Auto) Baso # (Auto) WBC Differential Differential Comment APTT Sodium Potassium Chloride Carbon Dioxide Anion Gap BUN Creatinine Estimated GFR POC Glucose 246 H Random Glucose Calcium Phosphorus Magnesium Tacrolimus Microbiology 04/23/18 00:43 Blood - Peripheral Aerobic Blood Culture - Preliminary No growth in 1 day 04/23/18 00:43 Blood - Peripheral Anaerobic Blood Culture - Preliminary No growth in 1 day 04/23/18 00:35 Blood - Peripheral Aerobic Blood Culture - Preliminary No growth in 1 day 04/23/18 00:35 Blood - Peripheral Anaerobic Blood Culture - Preliminary No growth in 1 day 04/22/18 09:50 Clean Catch Urine Urine Culture - Final No growth in 48 hours Assessment and Plan - Plan 57-year-old female with history of numerous abdominal surgeries, gastroparesis, renal transplant who presents to the emergency department due to dehydration, nausea and dry heaves. Patient was recently discharged home on Augmentin for UTI. Patient complains of significant epigastric pain and reflux symptoms despite taking potent PPI. Patient found to have sepsis secondary to UTI. Transplant surgery as well as infectious disease following. Sepsis (WBC 17.9K, heart rate 97, suspected infection UTI). Improving. -Continue meropenem per infectious disease. WBC down to normal range today -Follow cultures. Urine no growth at 24 hrs. Abdominal pain: History of kidney transplant History of polycystic kidney disease Acute on Chronic kidney disease -Renal functions improving, creatinine down to 1.01 today. -On IVF. Defer to Nephrology when this can be discontinued. Ward Catheter per transplant/Nephrology service. Continue normal saline at 100 cc/h. -Dilaudid PO as needed for her chronic pain. -Benadryl p.o. as needed for pruritus. -KUB unremarkable. -CT of the abdomen is unremarkable compared to previous imaging. -Case previously discussed with transplant service, Dr. Patel. Continue to treat infection. Hydration and monitor labs. Persistent headache: - Patient reports persistent headache and states only IV Dilaudid helps with her headache. - She states Fioricet, triptans do not work for her. She reports that previous workup at [facility] was negative. - Will ask Neurology for assistance if there is other medications other than IV Dilaudid to treat her headache. Thrombocytosis: Has been chronic. Etiology unclear. -Appreciate Hematology/Oncology following. Workup ongoing. MERRY Garza. May need bone marrow biopsy in the future. Continue to monitor. Severe GERD Gastroparesis -Protonix 40 mg p.o. twice daily. -Can consider Reglan PRN Diabetes mellitus -Levemir 10 units nightly and sliding scale insulin. Full code. Lovenox.
--- NOTE | 2018-04-24 11:56 | IR ---
EXAM DATE: 04/24/2018 10:22 AM EDT AGE/SEX: 57 years / Female INDICATIONS: Patient with a history of urinary tract infection. CLINICAL DATA: This is the patient's initial encounter. Patient reports that signs and symptoms have been present for 2 days and indicates a pain score of 5/10. MEDICAL/SURGICAL HISTORY: Diabetes. Gastroparesis. Dumping syndrome GERD Kidney failure Liver function failure Hysterectomy. Splenectomy. OophrectomyPancreatectomyIntestinal surgery Kidney Yoo splant COMPARISON: No prior exams available for comparison. FLUORO TIME (min): 0.33 IMAGE SERIES: 1 SEDATION TIME (min): 30 MEDICATION(S): 1mg midazolam (Versed) IV 0.5mg hydromorphone (Dilaudid) IV 0.5mg lorazepam (Ativan) IV DEVICE(S): Right 9F dual ward . . PROCEDURE: 1. Ultrasound-guided puncture of the prescribed vein. 2. Fluoroscopic guidance. 3. Ward catheter placement 4. Conscious sedation with continuous EKG and oximetry monitoring. The risks, benefits and alternatives to the procedure were explained and verbal and written consent w as obtained. The site was prepped in sterile fashion. Full sterile technique was used, including ca p, mask, sterile gloves and gown and a large sterile sheet. Hand hygiene and 2% chlorhexidine Betadi ne was utilized per protocol for cutaneous antisepsis with appropriate dry time for site. Sterile ge l and sterile probe cover were utilized for ultrasound guidance. The skin and subcutaneous tissues w ere infiltrated with local anesthetic solution. With ultrasound and fluoroscopic guidance a dermatotomy was created in the supraclavicular region. A micropuncture set was used to access to the prescribed vein and serial dilatation was performed to a ccept a Ward catheter. A subcutaneous tunnel was created and in antegrade fashion the catheter wa s pulled through the tunnel, cut to the appropriate length and place through the sheath. The cathete r was locked with heparin and sutured in place. Conscious sedation was performed with the prescribed dosages and duration as above in the presence of an independent trained radiology nurse to assist in the monitoring of the patient. EKG and oximetry remained stable throughout the procedure. The patient tolerated the procedure well and there were no complications. The patient was sent to post anesthesia recovery in stable condition. CONCLUSION: Uncomplicated ultrasound and fluoroscopic guided Ward catheter placement as above. Electronically signed by: Renny Galan MD 04/24/2018 11:55 AM EDT
--- NOTE | 2018-04-24 11:56 | P.PNNP ---
Subjective Interval history: Patient is alert, complaining of itching due to Dilaudid, abd. pain is better. Physical Exam Vital signs: Vital Signs 04/23/18 12:00 04/23/18 13:00 04/23/18 14:00 Temperature 98.2 F Pulse Rate 74 81 80 Respiratory Rate 16 Blood Pressure 127/64 Pulse Oximetry 100 04/23/18 15:00 04/23/18 16:00 04/23/18 17:00 Temperature 98.1 F Pulse Rate 69 77 98 H Respiratory Rate 16 Blood Pressure 126/67 Pulse Oximetry 99 04/23/18 18:00 04/23/18 19:00 04/23/18 20:00 Temperature 97.5 F L Pulse Rate 73 70 70 Respiratory Rate 18 Blood Pressure 161/76 H Pulse Oximetry 98 04/23/18 20:44 04/23/18 21:00 04/23/18 22:00 Temperature Pulse Rate 62 66 Respiratory Rate 18 Blood Pressure Pulse Oximetry 04/23/18 23:00 04/23/18 23:15 04/24/18 00:00 Temperature 97.5 F L Pulse Rate 73 73 78 Respiratory Rate 18 16 Blood Pressure 149/72 H Pulse Oximetry 99 04/24/18 01:00 04/24/18 02:00 04/24/18 03:00 Temperature Pulse Rate 65 68 67 Respiratory Rate Blood Pressure Pulse Oximetry 04/24/18 03:40 04/24/18 04:00 04/24/18 05:00 Temperature 97.7 F Pulse Rate 70 69 70 Respiratory Rate 18 16 Blood Pressure 144/73 H Pulse Oximetry 98 04/24/18 06:00 04/24/18 07:00 04/24/18 08:00 Temperature Pulse Rate 65 61 72 Respiratory Rate Blood Pressure Pulse Oximetry Intake & Output 04/23/18 04/24/18 04/24/18 18:59 06:59 18:59 Intake Total 3300 / 3300 1580 / 1580 100 / 100 Output Total 1400 / 1400 1000 / 1000 Balance 1900 / 1900 580 / 580 100 / 100 Weight 57.4 kg Intake: IV 2100 / 2100 1100 / 1100 100 / 100 NS Inj 1,000 ML @ 100 mls/hr IV 2000 / 2000 1000 / 1000 .CONT .Q10H [facility] Rx#:[id number] Merrem Inj 1,000 MG In NS Inj 100 / 100 100 / 100 100 / 100 100 ML @ 200 mls/hr IV.SIG Q12H [facility] Rx#:[id number] Oral 1200 / 1200 480 / 480 Output: Urine 1400 / 1400 1000 / 1000 Other: Date of Last Bowel Movement 04/23/18 04/23/18 # Bowel Movements 5 Narrative: GENERAL: Patient appears older than stated age. CARDIOVASCULAR: Normal rate and regular rhythm without murmurs, gallops, or rubs. RESPIRATORY: Good respiratory efforts. Breath sounds equal and clear to auscultation bilaterally. GASTROINTESTINAL: Abdomen soft, non-tender, non-distended. Normal active bowel sounds MUSCULOSKELETAL: Extremities without cyanosis, or edema. NEURO: Alert & Oriented x4 to person, place, time, situation. Moves all ext x4 PSYCH: Appropriate mood and affect. Assessment and Plan - Plan Patient with post Renal transplant done in 2017. Has recurrent UTI. Now admitted with another episode. Creatinine is 1.0, On Prograf 5 mg BID. Benadryl IV for itching. Ward line inserted. Cultures all negative, ID following. On Meropenem. Dr. Ferrell will follow from AM.
[2018-04-24] MEDS: predniSONE 10 MG Tablet PO SCH (12:37)
[2018-04-24] MEDS: Acetaminophen 325 MG Tablet PO PRN (12:37)
[2018-04-24] MEDS ORDERED: Dexamethasone Inj 20 MG/5 ML Vial IV.PUSH ONE (14:21)
--- NOTE | 2018-04-24 15:37 | P.PNID ---
Subjective Remarks: ID COVERAGE: Patient complaining of headache. Seen by Neurology and head MRI ordered. Notes that she can hardly keep her eyes open. Afebrile. No nausea or vomiting. Patient is a 57-year-old female, with a very complicated medical and surgical history, was recently hospitalized for fevers. She was later diagnosed to have urinary tract infection and was discharged on Augmentin. Patient completed the course of antibiotics about 3 days ago. She has had follow-up urinalysis which showed improvement in her pyuria. Her problems started 1 day prior to admission when she developed significant weakness, and later on she started having problem with difficulty urinating, some suprapubic discomfort. When she started urinating she really did not have any dysuria, but had noted decrease in her urine output. She also has been having problem with epigastric pain which was present when she was here during her last admission, but it got better by the time she was discharged, and recently started back again about a week ago. She has chronic nausea but has not had any vomiting. Denies any respiratory complaint. She has been having a lot of reflux symptoms and actually has been sleeping upright. Has not had any fevers, but has had chills for about 2 days on and off. She is also been having sweats since she was discharged from the hospital. She had some episode of blood when she urinated and had a bowel movement and this was about a week ago, and she stopped her anticoagulation. That has stopped. During that time she also noted some nosebleed. Patient called her transplant surgeon, and she was advised to go to the emergency room for further evaluation and treatment. Past Medical History: Medical History: Medical History (Last Reviewed 04/22/18 @ 15:19 by Pam Austin MD) Gastroparesis Diabetes Dumping syndrome Fracture, femur GERD (gastroesophageal reflux disease) Gastroparesis History of hysterectomy Kidney failure Liver function failure Surgical History: Surgical History (Last Reviewed 04/22/18 @ 15:19 by Pam Austin MD) H/O splenectomy History of colectomy History of intestinal surgery History of oophorectomy History of pancreatectomy Kidney transplant recipient Surgical procedure on lower extremity within past 6 months Allergies/Adverse Reactions: Allergies metronidazole [From Flagyl] Allergy (Mild, Verified 04/22/18 16:51) Swelling of the Eye oxycodone Allergy (Mild, Verified 04/22/18 16:52) Itching, Generalized oxytetracycline [From Terramycin] Allergy (Mild, Verified 03/27/18 18:27) Hives fentanyl Allergy (Verified 04/05/18 17:07) Edema filgrastim [From Neupogen] Allergy (Verified 04/05/18 10:48) Anaphylaxis Objective Vital Signs 04/23/18 16:00 04/23/18 17:00 04/23/18 18:00 Temperature 98.1 F Pulse Rate 77 98 H 73 Respiratory Rate 16 Blood Pressure 126/67 Pulse Oximetry 99 04/23/18 19:00 04/23/18 20:00 04/23/18 20:44 Temperature 97.5 F L Pulse Rate 70 70 Respiratory Rate 18 18 Blood Pressure 161/76 H Pulse Oximetry 98 04/23/18 21:00 04/23/18 22:00 04/23/18 23:00 Temperature Pulse Rate 62 66 73 Respiratory Rate Blood Pressure Pulse Oximetry 04/23/18 23:15 04/24/18 00:00 04/24/18 01:00 Temperature 97.5 F L Pulse Rate 73 78 65 Respiratory Rate 18 16 Blood Pressure 149/72 H Pulse Oximetry 99 04/24/18 02:00 04/24/18 03:00 04/24/18 03:40 Temperature 97.7 F Pulse Rate 68 67 70 Respiratory Rate 18 Blood Pressure 144/73 H Pulse Oximetry 98 04/24/18 04:00 04/24/18 05:00 04/24/18 06:00 Temperature Pulse Rate 69 70 65 Respiratory Rate 16 Blood Pressure Pulse Oximetry 04/24/18 07:00 04/24/18 08:00 04/24/18 10:05 Temperature Pulse Rate 61 72 74 Respiratory Rate 16 Blood Pressure 139/76 Pulse Oximetry 97 04/24/18 10:20 04/24/18 10:50 04/24/18 11:00 Temperature Pulse Rate 67 74 70 Respiratory Rate 16 16 Blood Pressure 91/57 L 141/78 H Pulse Oximetry 95 98 04/24/18 11:20 04/24/18 12:00 04/24/18 12:20 Temperature 97.9 F Pulse Rate 75 74 76 Respiratory Rate 16 16 16 Blood Pressure 113/67 144/81 H 124/75 Pulse Oximetry 97 98 98 04/24/18 13:00 04/24/18 14:00 04/24/18 15:00 Temperature 98.4 F Pulse Rate 74 76 73 Respiratory Rate 16 16 16 Blood Pressure 116/72 139/84 116/74 Pulse Oximetry 98 97 97 Intake & Output 04/23/18 04/24/18 04/24/18 18:59 06:59 18:59 Intake Total 3300 / 3300 1580 / 1580 1100 / 1100 Output Total 1400 / 1400 1000 / 1000 Balance 1900 / 1900 580 / 580 1100 / 1100 Weight 57.4 kg Intake: IV 2100 / 2100 1100 / 1100 1100 / 1100 NS Inj 1,000 ML @ 100 mls/hr IV 2000 / 2000 1000 / 1000 1000 / 1000 .CONT .Q10H RONALD Rx#:[id number] Merrem Inj 1,000 MG In NS Inj 100 / 100 100 / 100 100 / 100 100 ML @ 200 mls/hr IV.SIG Q12H RONALD Rx#:[id number] Oral 1200 / 1200 480 / 480 Output: Urine 1400 / 1400 1000 / 1000 Other: Date of Last Bowel Movement 04/23/18 04/23/18 # Bowel Movements 5 04/23/18 00:43 Blood - Peripheral Aerobic Blood Culture - Preliminary No growth in 1 day 04/23/18 00:43 Blood - Peripheral Anaerobic Blood Culture - Preliminary No growth in 1 day 04/23/18 00:35 Blood - Peripheral Aerobic Blood Culture - Preliminary No growth in 1 day 04/23/18 00:35 Blood - Peripheral Anaerobic Blood Culture - Preliminary No growth in 1 day 04/22/18 09:50 Clean Catch Urine Urine Culture - Final No growth in 48 hours Lab - Hematology Results 04/23/18 04/24/18 08:21 09:55 WBC 11.7 H 8.6 RBC 3.31 L 2.98 L Hgb 9.3 L 8.2 L Hct 28.9 L 26.2 L MCV 87.2 87.9 MCH 28.1 27.6 MCHC 32.3 31.4 L RDW 16.8 17.0 Plt Count 770 H 862 H MPV 9.0 9.1 Neut % (Auto) 67.7 80.3 H Lymph % (Auto) 16.8 3.3 L [place] % (Auto) 12.2 H 12.3 H Eos % (Auto) 1.9 3.6 Baso % (Auto) 1.4 0.5 Neut # (Auto) 7.9 H 6.9 Lymph # (Auto) 2.0 0.3 L [place] # (Auto) 1.4 H 1.1 H Eos # (Auto) 0.2 0.3 Baso # (Auto) 0.2 0.0 WBC Differential . . Differential Comment Auto diff final Auto diff final Lab - Chemistry Results 04/22/18 04/22/18 04/23/18 16:44 22:25 03:45 Sodium Potassium Chloride Carbon Dioxide Anion Gap BUN Creatinine Estimated GFR POC Glucose 222 H 212 H 162 H Random Glucose Calcium Phosphorus Magnesium 04/23/18 04/23/18 04/23/18 05:35 08:06 08:21 Sodium 134 L Potassium 4.6 Chloride 105 Carbon Dioxide 21.1 Anion Gap 8 BUN 18 Creatinine 1.15 H Estimated GFR 49 L POC Glucose 64 L Random Glucose 104 D Calcium 9.1 D Phosphorus 2.5 Magnesium 1.6 04/23/18 04/23/18 04/23/18 11:27 15:56 21:52 Sodium Potassium Chloride Carbon Dioxide Anion Gap BUN Creatinine Estimated GFR POC Glucose 196 H 230 H 189 H Random Glucose Calcium Phosphorus Magnesium 04/24/18 04/24/18 04/24/18 07:59 09:55 09:55 Sodium Potassium Chloride Carbon Dioxide Anion Gap BUN Creatinine Estimated GFR POC Glucose 267 H Random Glucose Calcium Phosphorus Cancelled Magnesium Cancelled 04/24/18 04/24/18 04/24/18 09:55 11:06 15:07 Sodium 135 L Potassium 4.9 Chloride 106 Carbon Dioxide 23.5 Anion Gap 6 BUN 12 Creatinine 1.01 H Estimated GFR 56 L POC Glucose 246 H 172 H Random Glucose 243 H D Calcium 8.9 Phosphorus 2.6 Magnesium 1.5 Imaging: ITS Impressions Abdomen X-Ray 04/22/18 00:00 CONCLUSION: Negative examination. Abdomen/Pelvis CT 04/22/18 00:00 CONCLUSION: 1. No acute findings. The overall appearance of CT scan is stable compared to 04/04/2018 with multiple findings as described above. Ward Line Insertion 04/24/18 00:00 CONCLUSION: Uncomplicated ultrasound and fluoroscopic guided Ward catheter placement as above. Physical Exam: GENERAL: Looks lethargic. HEENT: Head atraumatic. Pupils reactive to light. Extraocular movements intact. No icterus. Moist mucosa NECK: Supple without adenopathy. No swelling. LUNGS: Clear breath sounds bilateral. HEART: Regular S1 and S2. No murmurs heard. ABDOMEN: Bowel sounds present, soft, no tenderness appreciated. EXTREMITIES: No clubbing, cyanosis or edema. SKIN: No diffuse rash. NEUROLOGIC: No focal finding. PSYCH: Calm and cooperative. Assessment and Plan - Plan Impression Possible sepsis. Cultures pending. Recurrent UTI Weakness, leukocytosis, possibly due to sepsis S/P renal transplant Chronic abdominal pain, nausea, hx gastroparesis, has had multiple and extensive abdominal surgeries Renal insufficiency Recommendation Follow results of C/S IV meropenem to cover for likelihood of ESBL+ UC Follow CBC Monitor temps Monitor progress.
--- NOTE | 2018-04-24 16:11 | MR ---
EXAM DATE: 04/24/2018 4:03 PM EDT AGE/SEX: 57 years / Female INDICATIONS: Cephalgia. CLINICAL DATA: This is the patient's initial encounter. Patient reports that signs and symptoms have been present for 4 - 6 days and indicates a pain score of 4/10. MEDICAL/SURGICAL HISTORY: Diabetes mellitus type II. Hypertension. Renal insufficiency, chron ic. Appendectomy. Hysterectomy. Cholecystectomy. Nephrectomy x 2, partial gastrectomy. Kidney bautista splant. COMPARISON: No prior exams available for comparison. TECHNIQUE: Multiplanar, multisequence examination of the brain was performed without contrast. FINDINGS: No intracranial mass, hemorrhage or midline shift. No hydrocephalus. No evidence for recent infarctio n on the diffusion-weighted images. No sellar mass. Small retention cyst left maxillary sinus. Globes intact. CONCLUSION: 1. Unremarkable MRI of the brain. Electronically signed by: Zaki Arora MD 04/24/2018 4:09 PM EDT
--- NOTE | 2018-04-24 16:13 | MR ---
EXAM DATE: 04/24/2018 4:02 PM EDT AGE/SEX: 57 years / Female INDICATIONS: Cephalgia. CLINICAL DATA: This is the patient's initial encounter. Patient reports that signs and symptoms have been present for 4 - 6 days and indicates a pain score of 4/10. MEDICAL/SURGICAL HISTORY: Diabetes mellitus type II. Hypertension. Renal insufficiency, chron ic. Appendectomy. Hysterectomy. Cholecystectomy. Nephrectomy x 2, partial gastrectomy. Kidney bautista splant. [place]PAR[place]: [facility] [place], 04/24/2018. . TECHNIQUE: 3D [id number] MRA was performed. Source images, multiplanar STS MIP, and 3D volum e MIP reconstructions were reviewed. FINDINGS: There is excellent visualization of the major intracranial arteries out to the second-order branch ve ssels. There is no evidence for aneurysm, vessel truncation or stenosis, and no evidence for vascula r malformation. CONCLUSION: 1. Negative MRA Cow ([place]) non contrast. Electronically signed by: Zaki Arora MD 04/24/2018 4:12 PM EDT
--- NOTE | 2018-04-24 16:14 | MR ---
EXAM DATE: 04/24/2018 4:02 PM EDT AGE/SEX: 57 years / Female INDICATIONS: Cephalgia. CLINICAL DATA: This is the patient's initial encounter. Patient reports that signs and symptoms have been present for 4 - 6 days and indicates a pain score of 4/10. MEDICAL/SURGICAL HISTORY: Diabetes mellitus type II. Hypertension. Chronic renal insufficienc y. Appendectomy. Cholecystectomy. Hysterectomy. Nephrectomy x 2, partial gasstrctomy. Kidney trans plant. COMPARISON: [facility] [place]/O [place]AST, 04/24/2018. . TECHNIQUE: MR cerebral venography is performed without contrast. Source images, 3D volume MIP, and s liding thin slab MIP reconstructions were reviewed. FINDINGS: There is excellent visualization of the major intracranial arteries out to the second-order branch ve ssels. There is no evidence for aneurysm, vessel truncation or stenosis, and no evidence for vascula r malformation. CONCLUSION: 1. Negative MRV Brain non contrast. Electronically signed by: Flash Conrad MD 04/24/2018 4:13 PM EDT
[2018-04-24] MEDS: Enoxaparin Inj 40 MG/0.4 ML Syringe SQ SCH (17:04)
--- NOTE | 2018-04-24 17:46 | P.DIET ---
Nutritional Evaluation Type of nutrition evaluation: initial Nutrition screening: [facility] [place]: Malnutrition-pt has issues w/absorption, Any Recs to improve nutrition Subjective Subjective Comments: Pt is known to this Clinician from previous visit here, 03/27/18. Pt provided w/ diet education for gastroparesis and recipes for shakes/smoothies during that visit. Pt previously on home TPN. Objective - Diagnosis Abdominal Pain, h/o renal transplant, LIBBY, dehydration - Objective % IBW: 95 Body Weight Used for Calculations: Actual (56.4 kg) Energy Needs - Lower Range (kCal/kg): 28 Energy Needs - Upper Range (kCal/kg): 33 Lower Limit kCal/kg (kCals): 1,579 Upper Limit kCal/kg (kCals): 1,861 Lower Limit Protein Factor (Grams per Kg): 1.0 Upper Limit Protein Factor (Grams per Kg): 1.3 Lower Protein Needs (Protein): 56 Upper Protein Needs (Protein): 73 Dietitian Reviewed in Medical Record: Current diet, Curent medications, Intake & Output, Labs, Medical history Diet Order: 1800ADA Oral Diet Intake Amount: Fair 50-75% Objective Comments: See H&P POC Glucose 246, 172, Creatinine 1.01, estGFR 56 Assessment Assessment: Pt is at nutritional risk r/t diagnosis and medical history w/malabsorption; pt previously on home TPN. PO intake here is 50% to 75% for meals. Send Glucerna shakes TID(= 220 kcal and 10g protein per serving). Monitor for pt supplement acceptance. Plan to review gastroparesis diet education w/pt as needed. Dietitian following. Recommendations: 1. Send Glucerna shakes TID 2. Monitor for pt supplement acceptance 3. Plan to review gastroparesis diet education w/pt as needed 4. Dietitian following Dietitian to Monitor: Lab values, Electrolytes, Renal labs, Glucose level, Supplement acceptance, Intake & Output, Diet tolerance, Weight change, PO Intake , Medical course
--- NOTE | 2018-04-24 17:57 | P.PNONC ---
Subjective Interval history: Pt, in IR. Pt not seen today. Labs reviewed and case discussed with Dr. Cochran - hospitalist. W/u for MPN pending. If further increase in platelets beyond 1 million, ? empiric hydrea. Will follow up. Objective Vital Signs/Intake & Output: Vital Signs 04/23/18 18:00 04/23/18 19:00 04/23/18 20:00 Temperature 97.5 F L Pulse Rate 73 70 70 Respiratory Rate 18 Blood Pressure 161/76 H Pulse Oximetry 98 04/23/18 20:44 04/23/18 21:00 04/23/18 22:00 Temperature Pulse Rate 62 66 Respiratory Rate 18 Blood Pressure Pulse Oximetry 04/23/18 23:00 04/23/18 23:15 04/24/18 00:00 Temperature 97.5 F L Pulse Rate 73 73 78 Respiratory Rate 18 16 Blood Pressure 149/72 H Pulse Oximetry 99 04/24/18 01:00 04/24/18 02:00 04/24/18 03:00 Temperature Pulse Rate 65 68 67 Respiratory Rate Blood Pressure Pulse Oximetry 04/24/18 03:40 04/24/18 04:00 04/24/18 05:00 Temperature 97.7 F Pulse Rate 70 69 70 Respiratory Rate 18 16 Blood Pressure 144/73 H Pulse Oximetry 98 04/24/18 06:00 04/24/18 07:00 04/24/18 08:00 Temperature Pulse Rate 65 61 72 Respiratory Rate Blood Pressure Pulse Oximetry 04/24/18 10:05 04/24/18 10:20 04/24/18 10:50 Temperature Pulse Rate 74 67 74 Respiratory Rate 16 16 16 Blood Pressure 139/76 91/57 L 141/78 H Pulse Oximetry 97 95 98 04/24/18 11:00 04/24/18 11:20 04/24/18 12:00 Temperature 97.9 F Pulse Rate 70 75 74 Respiratory Rate 16 16 Blood Pressure 113/67 144/81 H Pulse Oximetry 97 98 04/24/18 12:20 04/24/18 13:00 04/24/18 14:00 Temperature Pulse Rate 76 74 76 Respiratory Rate 16 16 16 Blood Pressure 124/75 116/72 139/84 Pulse Oximetry 98 98 97 04/24/18 15:00 04/24/18 16:00 04/24/18 17:00 Temperature 98.4 F 98.4 F Pulse Rate 73 73 87 Respiratory Rate 16 16 Blood Pressure 116/74 116/74 Pulse Oximetry 97 97 Intake & Output 04/23/18 04/24/18 04/24/18 18:59 06:59 18:59 Intake Total 3300 / 3300 1580 / 1580 1820 / 1820 Output Total 1400 / 1400 1000 / 1000 600 / 600 Balance 1900 / 1900 580 / 580 1220 / 1220 Weight 57.4 kg Intake: IV 2100 / 2100 1100 / 1100 1100 / 1100 NS Inj 1,000 ML @ 100 mls/hr IV 2000 / 2000 1000 / 1000 1000 / 1000 .CONT .Q10H RONALD Rx#:[id number] Merrem Inj 1,000 MG In NS Inj 100 / 100 100 / 100 100 / 100 100 ML @ 200 mls/hr IV.SIG Q12H RONALD Rx#:[id number] Oral 1200 / 1200 480 / 480 720 / 720 Output: Urine 1400 / 1400 1000 / 1000 600 / 600 Other: Date of Last Bowel Movement 04/23/18 04/23/18 04/24/18 # Bowel Movements 5 3 Result Diagrams: 04/24/18 09:55 04/24/18 09:55 Laboratory Results: Laboratory Results - last 24 hr 04/23/18 04/23/18 04/24/18 18:27 21:52 07:59 WBC RBC Hgb Hct MCV MCH MCHC RDW Plt Count MPV Neut % (Auto) Lymph % (Auto) [place] % (Auto) Eos % (Auto) Baso % (Auto) Neut # (Auto) Lymph # (Auto) [place] # (Auto) Eos # (Auto) Baso # (Auto) WBC Differential Differential Comment ESR APTT 29.4 Sodium Potassium Chloride Carbon Dioxide Anion Gap BUN Creatinine Estimated GFR POC Glucose 189 H 267 H Random Glucose Calcium Phosphorus Magnesium Vitamin B12 Tacrolimus 04/24/18 04/24/18 04/24/18 09:55 09:55 09:55 WBC RBC Hgb Hct MCV MCH MCHC RDW Plt Count MPV Neut % (Auto) Lymph % (Auto) [place] % (Auto) Eos % (Auto) Baso % (Auto) Neut # (Auto) Lymph # (Auto) [place] # (Auto) Eos # (Auto) Baso # (Auto) WBC Differential Differential Comment ESR APTT Sodium Potassium Chloride Carbon Dioxide Anion Gap BUN Creatinine Estimated GFR POC Glucose Random Glucose Calcium Phosphorus Cancelled Magnesium Cancelled Vitamin B12 Tacrolimus 8.8 04/24/18 04/24/18 04/24/18 09:55 09:55 09:55 WBC 8.6 RBC 2.98 L Hgb 8.2 L Hct 26.2 L MCV 87.9 MCH 27.6 MCHC 31.4 L RDW 17.0 Plt Count 862 H MPV 9.1 Neut % (Auto) 80.3 H Lymph % (Auto) 3.3 L [place] % (Auto) 12.3 H Eos % (Auto) 3.6 Baso % (Auto) 0.5 Neut # (Auto) 6.9 Lymph # (Auto) 0.3 L [place] # (Auto) 1.1 H Eos # (Auto) 0.3 Baso # (Auto) 0.0 WBC Differential . Differential Comment Auto diff final ESR 66 H APTT Sodium 135 L Potassium 4.9 Chloride 106 Carbon Dioxide 23.5 Anion Gap 6 BUN 12 Creatinine 1.01 H Estimated GFR 56 L POC Glucose Random Glucose 243 H D Calcium 8.9 Phosphorus 2.6 Magnesium 1.5 Vitamin B12 Tacrolimus 04/24/18 04/24/18 04/24/18 09:55 11:06 15:07 WBC RBC Hgb Hct MCV MCH MCHC RDW Plt Count MPV Neut % (Auto) Lymph % (Auto) [place] % (Auto) Eos % (Auto) Baso % (Auto) Neut # (Auto) Lymph # (Auto) [place] # (Auto) Eos # (Auto) Baso # (Auto) WBC Differential Differential Comment ESR APTT Sodium Potassium Chloride Carbon Dioxide Anion Gap BUN Creatinine Estimated GFR POC Glucose 246 H 172 H Random Glucose Calcium Phosphorus Magnesium Vitamin B12 318 Tacrolimus Culture Results: Microbiology 04/23/18 00:43 Aerobic Blood Culture - Preliminary Blood - Peripheral No growth in 1 day Anaerobic Blood Culture - Preliminary No growth in 1 day 04/23/18 00:35 Aerobic Blood Culture - Preliminary Blood - Peripheral No growth in 1 day Anaerobic Blood Culture - Preliminary No growth in 1 day 04/22/18 09:50 Urine Culture - Final Clean Catch Urine No growth in 48 hours Imaging Studies: Impressions Head/Brain Mag Res Venography 04/24/18 00:00 CONCLUSION: 1. Negative MRV Brain non contrast. Ward Line Insertion 04/24/18 00:00 CONCLUSION: Uncomplicated ultrasound and fluoroscopic guided Ward catheter placement as above. Head MRI 04/24/18 14:21 CONCLUSION: 1. Unremarkable MRI of the brain. Head MRA 04/24/18 14:21 CONCLUSION: 1. Negative MRA Cow ([place]) non contrast. Medications: Active Medications Generic Name Dose Route Start Last Admin Trade Name Freq PRN Reason Stop Dose Admin Acetaminophen 650 mg 04/22/18 11:20 04/24/18 12:37 Tylenol PO 650 mg Q4H PRN Administration Headache, fever, pain 1-4 Atorvastatin Calcium 20 mg 04/23/18 09:00 04/24/18 08:04 Lipitor PO 20 mg DAILY RONALD Administration Carvedilol 12.5 mg 04/22/18 21:00 04/24/18 08:04 Coreg PO 12.5 mg BID RONALD Administration Enoxaparin Sodium 40 mg 04/22/18 18:00 04/24/18 17:04 Lovenox Inj SQ 40 mg Q24H RONALD Administration Hydromorphone HCl 2 mg 04/22/18 12:11 04/24/18 17:05 Dilaudid Pf Inj IV.PUSH 2 mg Q4H PRN Administration Pain 7-10 if NPO Hydromorphone HCl 2 mg 04/23/18 08:57 04/23/18 11:44 Dilaudid PO 2 mg Q3H PRN Administration PAIN SCALE 1 TO 5 Hydromorphone HCl 4 mg 04/23/18 08:58 04/24/18 12:48 Dilaudid PO 4 mg Q6H PRN Administration PAIN SCALE 6 TO 10 Sodium Chloride 1,000 mls @ 100 mls/hr 04/22/18 11:30 04/24/18 12:38 Ns Inj IV.CONT 100 mls/hr .Q10H RONALD Administration Meropenem 1,000 mg/ Sodium 100 mls @ 200 mls/hr 04/22/18 20:00 04/24/18 09:07 Chloride IV.SIG Infused Q12H RONALD Infusion Insulin Aspart 0 unit 04/22/18 21:00 04/24/18 17:04 Novolog Insulin Correctional Sugar Inj SQ 1 unit ACHS RONALD Administration Protocol Insulin Detemir 10 unit 04/22/18 21:00 04/23/18 22:02 Levemir Inj SQ 10 unit HS RONALD Administration Ondansetron HCl 4 mg 04/22/18 11:20 04/24/18 17:05 Zofran Inj IV.PUSH 4 mg Q6H PRN Administration NAUSEA OR VOMITING Pantoprazole Sodium 40 mg 04/23/18 09:00 04/24/18 08:04 Protonix PO 40 mg BID RONALD Administration Prednisone 10 mg 04/24/18 12:00 04/24/18 12:37 Deltasone PO 10 mg DAILY RONALD Administration Tacrolimus 4 mg 04/22/18 21:00 04/24/18 08:04 Prograf PO 4 mg Q12HR RONALD Administration Objective Remarks: GENERAL: Well-nourished, well-developed patient. SKIN: Warm and dry. HEAD: Normocephalic. EYES: No scleral icterus. No injection or drainage. NECK: Supple, trachea midline. No JVD or lymphadenopathy. LYMPHATIC: No adenopathy. CARDIOVASCULAR: Regular rate and rhythm without murmurs. RESPIRATORY: Breath sounds equal bilaterally. No accessory muscle use. GASTROINTESTINAL: Abdomen soft, non-tender, nondistended. EXTREMITIES: No cyanosis, or edema. MUSCULOSKELETAL: Adequate muscle tone. NEUROLOGICAL: No obvious focal deficit. Awake, alert, and oriented x3. PSYCHIATRIC: Appropriate mood and affect; insight and judgment normal.
--- NOTE | 2018-04-24 18:15 | MB ---
cc: Efren De Oliveira MD DATE: 04/24/2018 HISTORY OF PRESENT ILLNESS: A 57-year-old right-handed woman with hypertension, insulin dependent diabetes, hypercholesterolemia, kidney transplant in June of this year, polycystic liver problems, short gut, pancreatitis. She has been on Prograf, but has only had a headache in October for 3 days, December for 3 days, February for 3 days, and now started yesterday here. It is bifrontal temporal, pressure-like, severe. She feels dizzy if she stands up. No scintillations. Increase in her baseline nausea. She was up at the [facility] and they tried her on some Imitrex for it, but did not seem to help. She otherwise does not really have headaches. SOCIAL HISTORY: Nonsmoker or drinker. Lives with her . FAMILY HISTORY: Negative for cancer, seizure or stroke. REVIEW OF SYSTEMS: She denies any history of VA, stent, angioplasty, A-fib, Coumadin, hepatic disease or pulmonary disease besides the polycystic liver. No history of thyroid, lupus, ulcer, cancer, seizure or stroke. MEDICATIONS: She has been on Prograf, which she has been on for quite some time, Deltasone 10 mg a day chronically, Protonix, injections Levemir, Dilaudid, subcutaneous heparin, Lipitor. PHYSICAL EXAMINATION: VITAL SIGNS: Afebrile 144/81 to 124/75, 16, 64-74. NECK: There were no carotid bruits. HEART: Regular rhythm. I do not detect a murmur. NEUROLOGIC: Pupils are equal. Visual smith are full. Extraocular movement intact without nystagmus. Face is symmetrical with normal sensation. Tongue was midline. Just minimally touching her skin, she said it felt somewhat tender across the forehead and temples bilaterally. There is no drift. Normal strength in upper and lower extremities bilaterally. DTRs trace throughout. Toes downgoing bilaterally. Pinprick is intact throughout face, arms and legs bilaterally. Not ataxic on [id number]. Speech is fluent. She is not aphasic. Gives a good history. LABORATORY DATA: White count was 17,000, now normal, hematocrit 26,000. Platelet count is normal. UA: 166 white cells. Basic metabolic profile essentially normal. Glucose 240. LFTs have been normal. A CT scan of the brain done 04/07/2018, which showed cortical atrophy, otherwise normal. IMPRESSION: Headache. She has had one about every other month. Prograf can cause headaches in about 44% of the patients. However, I think it would be more chronic headache. What we will do is check an MRI of the brain, MR venogram, a sedimentation rate on her and MRA [place], and I will be following her with you in the hospital. Will try her on 10 of Decadron and start her on some Elavil at night tonight and see if that helps her headaches, but fortunately they only last about 3 days in the past. They may be a migraine variant for her. MD ERNESTO Enamorado/jennifer , 02:23 PM , 02:30 PM
[2018-04-24] MEDS ORDERED: Amitriptyline 25 MG Tablet PO SCH (21:00)
[2018-04-24] MEDS ORDERED: Magnesium Sulfate Inj 2 GM in Sodium Chlor 0.9% Inj 96 ML IV.SIG ONE (21:00)
[2018-04-24] MEDS: Insulin Detemir Inj 1,000 UNIT/10 ML Vial SQ SCH (21:30)
--- NOTE | 2018-04-24 23:11 | P.PNTS ---
Subjective Interval history: Still with abd discomfort. Says pain not well controlled Physical Exam Vital signs: Vital Signs 04/23/18 23:15 04/24/18 00:00 04/24/18 01:00 Temperature 97.5 F L Pulse Rate 73 78 65 Respiratory Rate 18 16 Blood Pressure 149/72 H Pulse Oximetry 99 04/24/18 02:00 04/24/18 03:00 04/24/18 03:40 Temperature 97.7 F Pulse Rate 68 67 70 Respiratory Rate 18 Blood Pressure 144/73 H Pulse Oximetry 98 04/24/18 04:00 04/24/18 05:00 04/24/18 06:00 Temperature Pulse Rate 69 70 65 Respiratory Rate 16 Blood Pressure Pulse Oximetry 04/24/18 07:00 04/24/18 08:00 04/24/18 10:05 Temperature Pulse Rate 61 72 74 Respiratory Rate 16 Blood Pressure 139/76 Pulse Oximetry 97 04/24/18 10:20 04/24/18 10:50 04/24/18 11:00 Temperature Pulse Rate 67 74 70 Respiratory Rate 16 16 Blood Pressure 91/57 L 141/78 H Pulse Oximetry 95 98 04/24/18 11:20 04/24/18 12:00 04/24/18 12:20 Temperature 97.9 F Pulse Rate 75 74 76 Respiratory Rate 16 16 16 Blood Pressure 113/67 144/81 H 124/75 Pulse Oximetry 97 98 98 04/24/18 13:00 04/24/18 14:00 04/24/18 15:00 Temperature 98.4 F Pulse Rate 74 76 73 Respiratory Rate 16 16 16 Blood Pressure 116/72 139/84 116/74 Pulse Oximetry 98 97 97 04/24/18 16:00 04/24/18 17:00 04/24/18 18:00 Temperature 98.4 F Pulse Rate 73 87 80 Respiratory Rate 16 Blood Pressure 116/74 Pulse Oximetry 97 04/24/18 20:42 Temperature 98.7 F Pulse Rate 77 Respiratory Rate 16 Blood Pressure 138/70 Pulse Oximetry 97 Intake & Output 04/24/18 04/24/18 04/25/18 06:59 18:59 06:59 Intake Total 1580 / 1580 1820 / 1820 Output Total 1000 / 1000 600 / 600 Balance 580 / 580 1220 / 1220 Weight 57.4 kg Intake: IV 1100 / 1100 1100 / 1100 NS Inj 1,000 ML @ 100 mls/hr IV 1000 / 1000 1000 / 1000 .CONT .Q10H [facility] Rx#:[id number] Merrem Inj 1,000 MG In NS Inj 100 / 100 100 / 100 100 ML @ 200 mls/hr IV.SIG Q12H [facility] Rx#:[id number] Oral 480 / 480 720 / 720 Output: Urine 1000 / 1000 600 / 600 Other: Date of Last Bowel Movement 04/23/18 04/24/18 # Bowel Movements 3 - Constitutional no acute distress - Routine HEENT Exam Head: Present: normocephalic, atraumatic Eye: Present: EOMI ENT: Present: mucous membranes moist - Routine Neck Exam Present: supple - Routine Respiratory Exam Present: CTA bilaterally - Routine Cardiovascular Exam Present: RRR, S1, S2, murmur - Routine Abdominal Exam Present: soft, normoactive bowel sounds, tenderness Comments: minimal epigastric tenderness. no rebound/guarding - Routine Skin Exam Present: intact - Routine Neurological Exam Present: alert, oriented X3 - Detailed Neurological Exam: Coma Scale Verbal Response: Oriented - Routine Psychiatric Exam Present: normal affect, normal thought process Results - Labs CBC & Chem 7: 04/24/18 09:55 04/24/18 09:55 Laboratory Results - last 24 hr 04/24/18 04/24/18 04/24/18 07:59 09:55 09:55 WBC RBC Hgb Hct MCV MCH MCHC RDW Plt Count MPV Neut % (Auto) Lymph % (Auto) [place] % (Auto) Eos % (Auto) Baso % (Auto) Neut # (Auto) Lymph # (Auto) [place] # (Auto) Eos # (Auto) Baso # (Auto) WBC Differential Differential Comment ESR Sodium Potassium Chloride Carbon Dioxide Anion Gap BUN Creatinine Estimated GFR POC Glucose 267 H Random Glucose Calcium Phosphorus Cancelled Magnesium Cancelled Vitamin B12 Tacrolimus 04/24/18 04/24/18 04/24/18 09:55 09:55 09:55 WBC 8.6 RBC 2.98 L Hgb 8.2 L Hct 26.2 L MCV 87.9 MCH 27.6 MCHC 31.4 L RDW 17.0 Plt Count 862 H MPV 9.1 Neut % (Auto) 80.3 H Lymph % (Auto) 3.3 L [place] % (Auto) 12.3 H Eos % (Auto) 3.6 Baso % (Auto) 0.5 Neut # (Auto) 6.9 Lymph # (Auto) 0.3 L [place] # (Auto) 1.1 H Eos # (Auto) 0.3 Baso # (Auto) 0.0 WBC Differential . Differential Comment Auto diff final ESR Sodium 135 L Potassium 4.9 Chloride 106 Carbon Dioxide 23.5 Anion Gap 6 BUN 12 Creatinine 1.01 H Estimated GFR 56 L POC Glucose Random Glucose 243 H D Calcium 8.9 Phosphorus 2.6 Magnesium 1.5 Vitamin B12 Tacrolimus 8.8 04/24/18 04/24/18 04/24/18 09:55 09:55 11:06 WBC RBC Hgb Hct MCV MCH MCHC RDW Plt Count MPV Neut % (Auto) Lymph % (Auto) [place] % (Auto) Eos % (Auto) Baso % (Auto) Neut # (Auto) Lymph # (Auto) [place] # (Auto) Eos # (Auto) Baso # (Auto) WBC Differential Differential Comment ESR 66 H Sodium Potassium Chloride Carbon Dioxide Anion Gap BUN Creatinine Estimated GFR POC Glucose 246 H Random Glucose Calcium Phosphorus Magnesium Vitamin B12 318 Tacrolimus 04/24/18 04/24/18 15:07 21:39 WBC RBC Hgb Hct MCV MCH MCHC RDW Plt Count MPV Neut % (Auto) Lymph % (Auto) [place] % (Auto) Eos % (Auto) Baso % (Auto) Neut # (Auto) Lymph # (Auto) [place] # (Auto) Eos # (Auto) Baso # (Auto) WBC Differential Differential Comment ESR Sodium Potassium Chloride Carbon Dioxide Anion Gap BUN Creatinine Estimated GFR POC Glucose 172 H 459 H* Random Glucose Calcium Phosphorus Magnesium Vitamin B12 Tacrolimus Microbiology 04/23/18 00:43 Blood - Peripheral Aerobic Blood Culture - Preliminary No growth in 1 day 04/23/18 00:43 Blood - Peripheral Anaerobic Blood Culture - Preliminary No growth in 1 day 04/23/18 00:35 Blood - Peripheral Aerobic Blood Culture - Preliminary No growth in 1 day 04/23/18 00:35 Blood - Peripheral Anaerobic Blood Culture - Preliminary No growth in 1 day 04/22/18 09:50 Clean Catch Urine Urine Culture - Final No growth in 48 hours - Imaging Impressions Head/Brain Mag Res Venography 04/24/18 00:00 CONCLUSION: 1. Negative MRV Brain non contrast. Odell Line Insertion 04/24/18 00:00 CONCLUSION: Uncomplicated ultrasound and fluoroscopic guided Odell catheter placement as above. Head MRI 04/24/18 14:21 CONCLUSION: 1. Unremarkable MRI of the brain. Head MRA 04/24/18 14:21 CONCLUSION: 1. Negative MRA [place] ([place]) non contrast. Assessment and Plan - Assessment (1) Renal transplant recipient Code(s): Z94.0 - Kidney transplant status Status: Acute (2) Renal insufficiency Code(s): N28.9 - Disorder of kidney and ureter, unspecified Status: Acute (3) DM (diabetes mellitus) Code(s): E11.9 - Type 2 diabetes mellitus without complications Status: Acute (4) Abdominal pain Code(s): R10.9 - Unspecified abdominal pain Status: Acute - Plan Patient with complex medical and surgical history, s/p living donor kidney transplant in June 2017 in [place]. Was seen at [facility] since then for consideration for multivisceral transplant. Was on TPN, but has since refused to resume, although its unclear, how well she will do nutritionally due to the amount of remaining bowel. She seemed to be doing okay post discharge. Her urinary tract infection seemed to be responding to antibiosis, however, she now re-presents with what seems to be either a new or recurrent UTI. Nots form other consultants reviewed. Appreciate assistance. Appreciate radiology odell placement. Creat/ leukocytosis improved. Would consider GI consult in AM. [facility] palliative care consult to assess pain managment concerns. No new recommendations at this time.
[2018-04-25] MEDS: HYDROmorphone PF Inj 2 MG/ML Vial IV.PUSH PRN ×4 (02:25→21:31)
[2018-04-25] MEDS: Insulin NovoLOG Aspart Correctional Sugar Inj SQ SCH ×5 (02:52→20:34)
[2018-04-25] MEDS: Sod Chloride 0.9% Inj 1,000 ML IV.CONT SCH ×3 (02:54→20:35)
--- NOTE | 2018-04-25 06:57 | P.PNNEU ---
Subjective Subjective Comments: clancy almost entirely gone Active Medications: Active Medications Acetaminophen (Tylenol) 650 mg PO Q4H PRN PRN Reason: Headache, fever, pain 1-4 Last Admin: 04/24/18 12:37 Dose: 650 mg Al Hydroxide/Mg Hydroxide (Milk Of Jorge A Cohen) 30 ml PO Q12H PRN PRN Reason: Mild Constipation Amitriptyline HCl (Elavil) 25 mg PO HS [facility] Last Admin: 04/25/18 00:16 Dose: Not Given Atorvastatin Calcium (Lipitor) 20 mg PO DAILY [facility] Last Admin: 04/24/18 08:04 Dose: 20 mg Bisacodyl (Dulcolax Supp) 10 mg RECTAL DAILY PRN PRN Reason: SEVERE CONSITIPATION Carvedilol (Coreg) 12.5 mg PO BID [facility] Last Admin: 04/24/18 21:27 Dose: 12.5 mg Dextrose (D50w Vial) 50 ml IV.PUSH UNSCH PRN PRN Reason: PER HYPOGLYCEMIA PROTOCOL Diphenhydramine HCl (Benadryl Inj) 25 mg IV.PUSH Q6H PRN PRN Reason: ITCHING Diphenhydramine HCl (Benadryl) 25 mg PO Q6H PRN PRN Reason: itching or headache Last Admin: 04/25/18 02:26 Dose: 25 mg Enoxaparin Sodium (Lovenox Inj) 40 mg SQ Q24H [facility] Last Admin: 04/24/18 17:04 Dose: 40 mg Glucagon (Glucagon Inj) 1 mg OTHER PRN PRN PRN Reason: for Hypoglycemia Protocol Heparin Sodium (Porcine) (Heparin Central Flush) 0 unit IV.FLUSH DAILY [facility] Heparin Sodium (Porcine) (Heparin Central Flush) 0 unit IV.FLUSH PRN PRN PRN Reason: Flush each lumen Hydromorphone HCl (Dilaudid Pf Inj) 2 mg IV.PUSH Q4H PRN PRN Reason: Pain 7-10 if NPO Last Admin: 04/25/18 02:25 Dose: 2 mg Hydromorphone HCl (Dilaudid) 2 mg PO Q3H PRN PRN Reason: PAIN SCALE 1 TO 5 Last Admin: 04/23/18 11:44 Dose: 2 mg Hydromorphone HCl (Dilaudid) 4 mg PO Q6H PRN PRN Reason: PAIN SCALE 6 TO 10 Last Admin: 04/24/18 12:48 Dose: 4 mg Sodium Chloride (Ns Inj) 1,000 mls @ 100 mls/hr IV.CONT .Q10H [facility] Last Admin: 04/25/18 02:54 Dose: 100 mls/hr Meropenem 1,000 mg/ Sodium (Chloride) 100 mls @ 200 mls/hr IV.SIG Q12H [facility] Last Infusion: 04/24/18 21:39 Dose: Infused Insulin Aspart (Novolog Insulin Correctional Sugar Inj) 0 unit SQ ACHS [facility]; Protocol Last Admin: 04/25/18 02:52 Dose: Not Given Insulin Detemir (Levemir Inj) 10 unit SQ HS [facility] Last Admin: 04/24/18 21:30 Dose: 10 unit Lactulose (Lactulose Liq) 30 ml PO DAILY PRN PRN Reason: SEVERE CONSITIPATION Ondansetron HCl (Zofran Inj) 4 mg IV.PUSH Q6H PRN PRN Reason: NAUSEA OR VOMITING Last Admin: 04/25/18 01:25 Dose: 4 mg Pantoprazole Sodium (Protonix) 40 mg PO BID [facility] Last Admin: 04/24/18 21:27 Dose: 40 mg Prednisone (Deltasone) 10 mg PO DAILY [facility] Last Admin: 04/24/18 12:37 Dose: 10 mg Prochlorperazine Edisylate (Compazine Inj) 5 mg IV.PUSH Q6H PRN PRN Reason: HEADACHE Last Admin: 04/25/18 02:25 Dose: 5 mg Sennosides (Senokot) 17.2 mg PO Q12H PRN PRN Reason: Moderate Constipation Sodium Chloride (Ns Flush) 0 ml IV.FLUSH PRN PRN PRN Reason: FLUSH AFTER USING IV ACCESS Sodium Chloride (Ns Flush) 0 ml IV.FLUSH DAILY [facility] Tacrolimus (Prograf) 4 mg PO Q12HR [facility] Last Admin: 04/24/18 21:27 Dose: 4 mg Allergies/Adverse Reactions: Allergies Allergy/AdvReac Type Severity Reaction Status Date / Time metronidazole [From Flagyl] Allergy Mild Swelling Verified 04/22/18 16:51 of the Eye oxycodone Allergy Mild Itching, Verified 04/22/18 16:52 Generalized oxytetracycline Allergy Mild Hives Verified 03/27/18 18:27 [From Terramycin] fentanyl Allergy Edema Verified 04/05/18 17:07 filgrastim [From Neupogen] Allergy Anaphylaxis Verified 04/05/18 10:48 Physical Exam Vital signs: Vital Signs 04/24/18 07:00 04/24/18 08:00 04/24/18 10:05 Temperature Pulse Rate 61 72 74 Respiratory Rate 16 Blood Pressure 139/76 Pulse Oximetry 97 04/24/18 10:20 04/24/18 10:50 04/24/18 11:00 Temperature Pulse Rate 67 74 70 Respiratory Rate 16 16 Blood Pressure 91/57 L 141/78 H Pulse Oximetry 95 98 04/24/18 11:20 04/24/18 12:00 04/24/18 12:20 Temperature 97.9 F Pulse Rate 75 74 76 Respiratory Rate 16 16 16 Blood Pressure 113/67 144/81 H 124/75 Pulse Oximetry 97 98 98 04/24/18 13:00 04/24/18 14:00 04/24/18 15:00 Temperature 98.4 F Pulse Rate 74 76 73 Respiratory Rate 16 16 16 Blood Pressure 116/72 139/84 116/74 Pulse Oximetry 98 97 97 04/24/18 16:00 04/24/18 17:00 04/24/18 18:00 Temperature 98.4 F Pulse Rate 73 87 80 Respiratory Rate 16 Blood Pressure 116/74 Pulse Oximetry 97 04/24/18 19:00 04/24/18 20:00 04/24/18 20:42 Temperature 98.7 F Pulse Rate 78 76 77 Respiratory Rate 16 16 Blood Pressure 138/70 Pulse Oximetry 97 04/24/18 21:00 04/24/18 22:00 04/24/18 22:29 Temperature Pulse Rate 78 74 Respiratory Rate 16 Blood Pressure Pulse Oximetry 04/24/18 23:00 04/25/18 00:00 04/25/18 01:00 Temperature 98.6 F Pulse Rate 76 74 74 Respiratory Rate 16 Blood Pressure 112/58 L Pulse Oximetry 97 04/25/18 02:00 04/25/18 03:00 04/25/18 04:00 Temperature 98.6 F Pulse Rate 80 76 78 Respiratory Rate 16 Blood Pressure 108/55 L Pulse Oximetry 97 04/25/18 05:00 04/25/18 06:00 Temperature Pulse Rate 78 80 Respiratory Rate Blood Pressure Pulse Oximetry Intake & Output 10/28/18 10/28/18 10/29/18 06:59 18:59 06:59 Intake Total 1580 / 1580 1820 / 1820 2920 / 2920 Output Total 1000 / 1000 600 / 600 1000 / 1000 Balance 580 / 580 1220 / 1220 1920 / 1920 Weight 57.4 kg 57.6 kg Intake: IV 1100 / 1100 1100 / 1100 2200 / 2200 NS Inj 1,000 ML @ 100 mls/hr IV 1000 / 1000 1000 / 1000 2000 / 2000 .CONT .Q10H [facility] Rx#:[id number] Magnesium Sulfate Inj 2 GM In 100 / 100 NS Inj 96 ML @ 50 mls/hr IV.SIG ONCE ONE Rx#:[id number] Merrem Inj 1,000 MG In NS Inj 100 / 100 100 / 100 100 / 100 100 ML @ 200 mls/hr IV.SIG Q12H [facility] Rx#:[id number] Oral 480 / 480 720 / 720 720 / 720 Output: Urine 1000 / 1000 600 / 600 1000 / 1000 Other: Date of Last Bowel Movement 04/23/18 04/24/18 # Bowel Movements 3 Narrative: awake alert slept well Objective Laboratory Results - last 24 hr 04/24/18 04/24/18 04/24/18 07:59 09:55 09:55 WBC RBC Hgb Hct MCV MCH MCHC RDW Plt Count MPV Neut % (Auto) Lymph % (Auto) [place] % (Auto) Eos % (Auto) Baso % (Auto) Neut # (Auto) Lymph # (Auto) [place] # (Auto) Eos # (Auto) Baso # (Auto) WBC Differential Differential Comment ESR Sodium Potassium Chloride Carbon Dioxide Anion Gap BUN Creatinine Estimated GFR POC Glucose 267 H Random Glucose Calcium Phosphorus Cancelled Magnesium Cancelled Vitamin B12 Tacrolimus 04/24/18 04/24/18 04/24/18 09:55 09:55 09:55 WBC 8.6 RBC 2.98 L Hgb 8.2 L Hct 26.2 L MCV 87.9 MCH 27.6 MCHC 31.4 L RDW 17.0 Plt Count 862 H MPV 9.1 Neut % (Auto) 80.3 H Lymph % (Auto) 3.3 L [place] % (Auto) 12.3 H Eos % (Auto) 3.6 Baso % (Auto) 0.5 Neut # (Auto) 6.9 Lymph # (Auto) 0.3 L [place] # (Auto) 1.1 H Eos # (Auto) 0.3 Baso # (Auto) 0.0 WBC Differential . Differential Comment Auto diff final ESR Sodium 135 L Potassium 4.9 Chloride 106 Carbon Dioxide 23.5 Anion Gap 6 BUN 12 Creatinine 1.01 H Estimated GFR 56 L POC Glucose Random Glucose 243 H D Calcium 8.9 Phosphorus 2.6 Magnesium 1.5 Vitamin B12 Tacrolimus 8.8 04/24/18 04/24/18 04/24/18 09:55 09:55 11:06 WBC RBC Hgb Hct MCV MCH MCHC RDW Plt Count MPV Neut % (Auto) Lymph % (Auto) [place] % (Auto) Eos % (Auto) Baso % (Auto) Neut # (Auto) Lymph # (Auto) [place] # (Auto) Eos # (Auto) Baso # (Auto) WBC Differential Differential Comment ESR 66 H Sodium Potassium Chloride Carbon Dioxide Anion Gap BUN Creatinine Estimated GFR POC Glucose 246 H Random Glucose Calcium Phosphorus Magnesium Vitamin B12 318 Tacrolimus 04/24/18 04/24/18 15:07 21:39 WBC RBC Hgb Hct MCV MCH MCHC RDW Plt Count MPV Neut % (Auto) Lymph % (Auto) [place] % (Auto) Eos % (Auto) Baso % (Auto) Neut # (Auto) Lymph # (Auto) [place] # (Auto) Eos # (Auto) Baso # (Auto) WBC Differential Differential Comment ESR Sodium Potassium Chloride Carbon Dioxide Anion Gap BUN Creatinine Estimated GFR POC Glucose 172 H 459 H* Random Glucose Calcium Phosphorus Magnesium Vitamin B12 Tacrolimus Microbiology 04/23/18 00:43 Aerobic Blood Culture - Preliminary Blood - Peripheral No growth in 1 day Anaerobic Blood Culture - Preliminary No growth in 1 day 04/23/18 00:35 Aerobic Blood Culture - Preliminary Blood - Peripheral No growth in 1 day Anaerobic Blood Culture - Preliminary No growth in 1 day 04/22/18 09:50 Urine Culture - Final Clean Catch Urine No growth in 48 hours Review/Management - Review/Management Plan: imp mri/a/v nl b12 nl esr 66 but uti could do this defer to med team refused elavil much better will sign off
[2018-04-25 08:46] LABS: Baso % (Auto) 0.6 % (0.0-2.0); Eos % (Auto) 0.4 % (0.0-4.0); Hematocrit 26.7 % (35.0-46.0); Hemoglobin 8.5 gm/dL (11.6-15.3); Lymph # (Auto) 0.8 th/mm3 (1.0-4.8); Lymph % (Auto) 12.4 % (9.0-44.0); Mean Corpuscular Hemoglobin 28.4 pg (27.0-34.0); Mean Corpuscular Volume 88.7 fL (80.0-100.0); Mean Platelet Volume 8.9 fL (7.0-11.0); Mono # (Auto) 0.9 th/mm3 (0.0-0.9); Mono % (Auto) 13.1 % (0.0-8.0); Neut # (Auto) 4.9 th/mm3 (1.8-7.7); Neut % (Auto) 73.5 % (16.0-70.0); Platelet Count 949 th/mm3 (150-450); Red Blood Count 3.01 mil/mm3 (4.00-5.30); Red Cell Distribution Width 17.3 % (11.6-17.2); White Blood Count 6.7 th/mm3 (4.0-11.0)
[2018-04-25] MEDS: predniSONE 10 MG Tablet PO SCH (09:35)
[2018-04-25] MEDS: Carvedilol 12.5 MG Tablet PO SCH ×2 (09:36→20:37)
[2018-04-25] MEDS: Heparin Central Flush 100 UNIT/ML 5 ML Vial IV.FLUSH SCH (09:37)
[2018-04-25 09:54] LABS: Calcium 9.2 mg/dL (8.5-10.1); Carbon Dioxide 22.5 meq/L (21.0-32.0); Magnesium 1.8 mg/dL (1.5-2.5); Phosphorus 2.8 mg/dL (2.5-4.9); Potassium 5.7 meq/L (3.5-5.1)
[2018-04-25] MEDS: Metoclopramide 10 MG Tablet PO SCH ×3 (11:31→20:36)
--- NOTE | 2018-04-25 11:55 | P.PNTS ---
Subjective Interval history: No new c/o. Abd pain and headache better. Physical Exam Vital signs: Vital Signs 04/24/18 12:00 04/24/18 12:20 04/24/18 13:00 Temperature 97.9 F Pulse Rate 74 76 74 Respiratory Rate 16 16 16 Blood Pressure 144/81 H 124/75 116/72 Pulse Oximetry 98 98 98 04/24/18 14:00 04/24/18 15:00 04/24/18 16:00 Temperature 98.4 F 98.4 F Pulse Rate 76 73 73 Respiratory Rate 16 16 16 Blood Pressure 139/84 116/74 116/74 Pulse Oximetry 97 97 97 04/24/18 17:00 04/24/18 18:00 04/24/18 19:00 Temperature Pulse Rate 87 80 78 Respiratory Rate Blood Pressure Pulse Oximetry 04/24/18 20:00 04/24/18 20:42 04/24/18 21:00 Temperature 98.7 F Pulse Rate 76 77 78 Respiratory Rate 16 16 Blood Pressure 138/70 Pulse Oximetry 97 04/24/18 22:00 04/24/18 22:29 04/24/18 23:00 Temperature Pulse Rate 74 76 Respiratory Rate 16 Blood Pressure Pulse Oximetry 04/25/18 00:00 04/25/18 01:00 04/25/18 02:00 Temperature 98.6 F Pulse Rate 74 74 80 Respiratory Rate 16 Blood Pressure 112/58 L Pulse Oximetry 97 04/25/18 03:00 04/25/18 04:00 04/25/18 05:00 Temperature 98.6 F Pulse Rate 76 78 78 Respiratory Rate 16 Blood Pressure 108/55 L Pulse Oximetry 97 04/25/18 06:00 04/25/18 07:00 04/25/18 08:00 Temperature 98.6 F Pulse Rate 80 81 81 Respiratory Rate 16 Blood Pressure 109/61 Pulse Oximetry 97 04/25/18 09:00 04/25/18 10:00 Temperature Pulse Rate 84 84 Respiratory Rate Blood Pressure Pulse Oximetry Intake & Output 04/24/18 04/25/18 04/25/18 18:59 06:59 18:59 Intake Total 1820 / 1820 2920 / 2920 1100 / 1100 Output Total 600 / 600 1000 / 1000 Balance 1220 / 1220 1920 / 1920 1100 / 1100 Weight 57.6 kg Intake: IV 1100 / 1100 2200 / 2200 1100 / 1100 NS Inj 1,000 ML @ 100 mls/hr IV 1000 / 1000 2000 / 2000 1000 / 1000 .CONT .Q10H [facility] Rx#:[id number] Magnesium Sulfate Inj 2 GM In 100 / 100 NS Inj 96 ML @ 50 mls/hr IV.SIG ONCE ONE Rx#:[id number] Merrem Inj 1,000 MG In NS Inj 100 / 100 100 / 100 100 / 100 100 ML @ 200 mls/hr IV.SIG Q12H [facility] Rx#:[id number] Oral 720 / 720 720 / 720 Output: Urine 600 / 600 1000 / 1000 Other: Date of Last Bowel Movement 04/24/18 # Bowel Movements 3 - Constitutional no acute distress - Routine HEENT Exam Head: Present: normocephalic, atraumatic Eye: Present: EOMI ENT: Present: mucous membranes moist - Routine Neck Exam Present: supple - Routine Respiratory Exam Present: CTA bilaterally - Routine Cardiovascular Exam Present: RRR, S1, S2 - Routine Abdominal Exam Present: soft, normoactive bowel sounds, tenderness Comments: minimally tender - Routine Extremities Exam Present: edema (Some mild anasarca) - Routine Skin Exam Present: intact - Routine Neurological Exam Present: alert, oriented X3 - Detailed Neurological Exam: Coma Scale Verbal Response: Oriented - Routine Psychiatric Exam Present: normal affect, normal thought process Results - Labs CBC & Chem 7: 04/25/18 08:20 04/25/18 08:20 Laboratory Results - last 24 hr 04/24/18 04/24/18 04/24/18 09:55 09:55 09:55 WBC RBC Hgb Hct MCV MCH MCHC RDW Plt Count MPV Neut % (Auto) Lymph % (Auto) [place] % (Auto) Eos % (Auto) Baso % (Auto) Neut # (Auto) Lymph # (Auto) [place] # (Auto) Eos # (Auto) Baso # (Auto) WBC Differential Differential Comment ESR 66 H Sodium Potassium Chloride Carbon Dioxide Anion Gap BUN Creatinine Estimated GFR POC Glucose Random Glucose Calcium Phosphorus Magnesium Vitamin B12 318 Tacrolimus 8.8 04/24/18 04/24/18 04/25/18 15:07 21:39 08:06 WBC RBC Hgb Hct MCV MCH MCHC RDW Plt Count MPV Neut % (Auto) Lymph % (Auto) [place] % (Auto) Eos % (Auto) Baso % (Auto) Neut # (Auto) Lymph # (Auto) [place] # (Auto) Eos # (Auto) Baso # (Auto) WBC Differential Differential Comment ESR Sodium Potassium Chloride Carbon Dioxide Anion Gap BUN Creatinine Estimated GFR POC Glucose 172 H 459 H* 433 H Random Glucose Calcium Phosphorus Magnesium Vitamin B12 Tacrolimus 04/25/18 04/25/18 04/25/18 08:20 08:20 11:19 WBC 6.7 RBC 3.01 L Hgb 8.5 L Hct 26.7 L MCV 88.7 MCH 28.4 MCHC 32.0 RDW 17.3 H Plt Count 949 H MPV 8.9 Neut % (Auto) 73.5 H Lymph % (Auto) 12.4 [place] % (Auto) 13.1 H Eos % (Auto) 0.4 Baso % (Auto) 0.6 Neut # (Auto) 4.9 Lymph # (Auto) 0.8 L [place] # (Auto) 0.9 Eos # (Auto) 0.0 Baso # (Auto) 0.0 WBC Differential . Differential Comment Auto diff final ESR Sodium 133 L Potassium 5.7 H D Chloride 102 Carbon Dioxide 22.5 Anion Gap 9 BUN 18 Creatinine 1.36 H Estimated GFR 40 L POC Glucose 423 H Random Glucose 428 H D Calcium 9.2 Phosphorus 2.8 Magnesium 1.8 Vitamin B12 Tacrolimus Microbiology 04/23/18 00:43 Blood - Peripheral Aerobic Blood Culture - Preliminary No growth in 2 days 04/23/18 00:43 Blood - Peripheral Anaerobic Blood Culture - Preliminary No growth in 2 days 04/23/18 00:35 Blood - Peripheral Aerobic Blood Culture - Preliminary No growth in 2 days 04/23/18 00:35 Blood - Peripheral Anaerobic Blood Culture - Preliminary No growth in 2 days 04/22/18 09:50 Clean Catch Urine Urine Culture - Final No growth in 48 hours - Imaging Impressions Head/Brain Mag Res Venography 04/24/18 00:00 CONCLUSION: 1. Negative MRV Brain non contrast. Ward Line Insertion 04/24/18 00:00 CONCLUSION: Uncomplicated ultrasound and fluoroscopic guided Ward catheter placement as above. Head MRI 04/24/18 14:21 CONCLUSION: 1. Unremarkable MRI of the brain. Head MRA 04/24/18 14:21 CONCLUSION: 1. Negative MRA [place] ([place]) non contrast. Assessment and Plan - Assessment (1) Renal transplant recipient Code(s): Z94.0 - Kidney transplant status Status: Acute (2) Renal insufficiency Code(s): N28.9 - Disorder of kidney and ureter, unspecified Status: Acute (3) DM (diabetes mellitus) Code(s): E11.9 - Type 2 diabetes mellitus without complications Status: Acute (4) Abdominal pain Code(s): R10.9 - Unspecified abdominal pain Status: Acute - Plan Patient with complex medical and surgical history, s/p living donor kidney transplant in June 2017 in [place]. Was seen at [facility] since then for consideration for multivisceral transplant. Was on TPN, but has since refused to resume, although its unclear, how well she will do nutritionally due to the amount of remaining bowel. She seemed to be doing okay post discharge. Her urinary tract infection seemed to be responding to antibiosis, however, she now re-presents with what seems to be either a new or recurrent UTI. Some mild anasarca noted. ? some slight mid increased LUE swelling, compared to RUE. Suspect it is at least in part due to her prior access procedure. Will monitor for now. Consider US if seems to be increasing/persistent. Notes from other consultants reviewed. Appreciate assistance. Consider GI/ palliative care consult. Spoke with post-drug coordinator at [facility] and updated them with her status. No new recommendations at this time.
--- NOTE | 2018-04-25 12:18 | P.PNIM ---
Subjective Interval history: Patient reports she is feeling better today. Headache resolved. Still complains of abdominal pain and she continues to use IV Dilaudid. Physical Exam Vital signs: Vital Signs 04/24/18 12:20 04/24/18 13:00 04/24/18 14:00 Temperature Pulse Rate 76 74 76 Respiratory Rate 16 16 16 Blood Pressure 124/75 116/72 139/84 Pulse Oximetry 98 98 97 04/24/18 15:00 04/24/18 16:00 04/24/18 17:00 Temperature 98.4 F 98.4 F Pulse Rate 73 73 87 Respiratory Rate 16 16 Blood Pressure 116/74 116/74 Pulse Oximetry 97 97 04/24/18 18:00 04/24/18 19:00 04/24/18 20:00 Temperature Pulse Rate 80 78 76 Respiratory Rate 16 Blood Pressure Pulse Oximetry 04/24/18 20:42 04/24/18 21:00 04/24/18 22:00 Temperature 98.7 F Pulse Rate 77 78 74 Respiratory Rate 16 Blood Pressure 138/70 Pulse Oximetry 97 04/24/18 22:29 04/24/18 23:00 04/25/18 00:00 Temperature 98.6 F Pulse Rate 76 74 Respiratory Rate 16 16 Blood Pressure 112/58 L Pulse Oximetry 97 04/25/18 01:00 04/25/18 02:00 04/25/18 03:00 Temperature Pulse Rate 74 80 76 Respiratory Rate Blood Pressure Pulse Oximetry 04/25/18 04:00 04/25/18 05:00 04/25/18 06:00 Temperature 98.6 F Pulse Rate 78 78 80 Respiratory Rate 16 Blood Pressure 108/55 L Pulse Oximetry 97 04/25/18 07:00 04/25/18 08:00 04/25/18 09:00 Temperature 98.6 F Pulse Rate 81 81 84 Respiratory Rate 16 Blood Pressure 109/61 Pulse Oximetry 97 04/25/18 10:00 04/25/18 11:00 04/25/18 11:56 Temperature 98.2 F Pulse Rate 84 89 81 Respiratory Rate 16 Blood Pressure 107/61 Pulse Oximetry 96 04/25/18 11:58 Temperature Pulse Rate 86 Respiratory Rate Blood Pressure Pulse Oximetry Intake & Output 04/24/18 04/25/18 04/25/18 18:59 06:59 18:59 Intake Total 1820 / 1820 2920 / 2920 1100 / 1100 Output Total 600 / 600 1000 / 1000 Balance 1220 / 1220 1920 / 1920 1100 / 1100 Weight 57.6 kg Intake: IV 1100 / 1100 2200 / 2200 1100 / 1100 NS Inj 1,000 ML @ 100 mls/hr IV 1000 / 1000 2000 / 2000 1000 / 1000 .CONT .Q10H [facility] Rx#:[id number] Magnesium Sulfate Inj 2 GM In 100 / 100 NS Inj 96 ML @ 50 mls/hr IV.SIG ONCE ONE Rx#:[id number] Merrem Inj 1,000 MG In NS Inj 100 / 100 100 / 100 100 / 100 100 ML @ 200 mls/hr IV.SIG Q12H [facility] Rx#:[id number] Oral 720 / 720 720 / 720 Output: Urine 600 / 600 1000 / 1000 Other: Date of Last Bowel Movement 04/24/18 # Bowel Movements 3 Narrative: GENERAL: Patient appears older than stated age. CARDIOVASCULAR: Normal rate and regular rhythm without murmurs, gallops, or rubs. RESPIRATORY: Good respiratory efforts. Breath sounds equal and clear to auscultation bilaterally. GASTROINTESTINAL: Abdomen soft, mild tenderness to palpation. Normal active bowel sounds MUSCULOSKELETAL: Extremities without cyanosis, or edema. NEURO: Alert & Oriented x4 to person, place, time, situation. Moves all ext x4 PSYCH: Appropriate mood and affect. Results - Labs CBC & Chem 7: 04/25/18 08:20 04/25/18 11:20 Laboratory Results - last 24 hr 04/24/18 04/24/18 04/24/18 09:55 09:55 09:55 WBC RBC Hgb Hct MCV MCH MCHC RDW Plt Count MPV Neut % (Auto) Lymph % (Auto) [place] % (Auto) Eos % (Auto) Baso % (Auto) Neut # (Auto) Lymph # (Auto) [place] # (Auto) Eos # (Auto) Baso # (Auto) WBC Differential Differential Comment ESR 66 H Sodium Potassium Chloride Carbon Dioxide Anion Gap BUN Creatinine Estimated GFR POC Glucose Random Glucose Calcium Phosphorus Magnesium Vitamin B12 318 Tacrolimus 8.8 04/24/18 04/24/18 04/25/18 15:07 21:39 08:06 WBC RBC Hgb Hct MCV MCH MCHC RDW Plt Count MPV Neut % (Auto) Lymph % (Auto) [place] % (Auto) Eos % (Auto) Baso % (Auto) Neut # (Auto) Lymph # (Auto) [place] # (Auto) Eos # (Auto) Baso # (Auto) WBC Differential Differential Comment ESR Sodium Potassium Chloride Carbon Dioxide Anion Gap BUN Creatinine Estimated GFR POC Glucose 172 H 459 H* 433 H Random Glucose Calcium Phosphorus Magnesium Vitamin B12 Tacrolimus 04/25/18 04/25/18 04/25/18 08:20 08:20 11:19 WBC 6.7 RBC 3.01 L Hgb 8.5 L Hct 26.7 L MCV 88.7 MCH 28.4 MCHC 32.0 RDW 17.3 H Plt Count 949 H MPV 8.9 Neut % (Auto) 73.5 H Lymph % (Auto) 12.4 [place] % (Auto) 13.1 H Eos % (Auto) 0.4 Baso % (Auto) 0.6 Neut # (Auto) 4.9 Lymph # (Auto) 0.8 L [place] # (Auto) 0.9 Eos # (Auto) 0.0 Baso # (Auto) 0.0 WBC Differential . Differential Comment Auto diff final ESR Sodium 133 L Potassium 5.7 H D Chloride 102 Carbon Dioxide 22.5 Anion Gap 9 BUN 18 Creatinine 1.36 H Estimated GFR 40 L POC Glucose 423 H Random Glucose 428 H D Calcium 9.2 Phosphorus 2.8 Magnesium 1.8 Vitamin B12 Tacrolimus Microbiology 04/23/18 00:43 Blood - Peripheral Aerobic Blood Culture - Preliminary No growth in 2 days 04/23/18 00:43 Blood - Peripheral Anaerobic Blood Culture - Preliminary No growth in 2 days 04/23/18 00:35 Blood - Peripheral Aerobic Blood Culture - Preliminary No growth in 2 days 04/23/18 00:35 Blood - Peripheral Anaerobic Blood Culture - Preliminary No growth in 2 days 04/22/18 09:50 Clean Catch Urine Urine Culture - Final No growth in 48 hours - Imaging Impressions Head/Brain Mag Res Venography 04/24/18 00:00 CONCLUSION: 1. Negative MRV Brain non contrast. Head MRI 04/24/18 14:21 CONCLUSION: 1. Unremarkable MRI of the brain. Head MRA 04/24/18 14:21 CONCLUSION: 1. Negative MRA [place] ([place]) non contrast. Assessment and Plan - Plan 57-year-old female with history of numerous abdominal surgeries, gastroparesis, renal transplant who presents to the emergency department due to dehydration, nausea and dry heaves. Patient was recently discharged home on Augmentin for UTI. Patient complains of significant epigastric pain and reflux symptoms despite taking potent PPI. Patient found to have sepsis secondary to UTI. Transplant surgery as well as infectious disease following. Sepsis (WBC 17.9K, heart rate 97, suspected infection UTI). Improving. -On meropenem per infectious disease. WBC down to normal range -All cultures negative so far. - Further plans per ID. Abdominal pain: History of kidney transplant History of polycystic kidney disease Acute on Chronic kidney disease -Renal functions worse today. -On IVF. Ward Catheter per transplant/Nephrology service. Continue normal saline at 100 cc/h. -Dilaudid PO ad IV as needed for her chronic pain. -Benadryl as needed for pruritus. -KUB unremarkable. -CT of the abdomen is unremarkable compared to previous imaging. -Case previously discussed with transplant service, Dr. Patel. Agree with GI consult and palliative care consult to assist with pain management. No clear etiology to explain the amount of pain the patient is reporting. Encouraging that she is feeling better overall. Hopefully can transition to oral meds only. Appreciate input from palliative care. Persistent headache: - Patient reports persistent headache and states only IV Dilaudid helps with her headache. - Appreciate assistance from Neurology. Patient was given a dose of Decadron. Headache resolved. She was offered Elavil but refused. Thrombocytosis: Has been chronic. Etiology unclear. -Appreciate Hematology/Oncology following. Workup ongoing. MERRY Garza. May need bone marrow biopsy in the future. Continue to monitor. If over a million, may need hydroxyurea. Severe GERD Gastroparesis -Protonix 40 mg p.o. twice daily. -Can consider Reglan PRN - GI consulted. Diabetes mellitus -Blood glucose worse likely due to Decadron. Levemir increased to 10 units BID and increase to medium sliding scale insulin. Cautious with insulin as her PO intake is highly variable and she has history of Hypoglycemia. Full code. Lovenox.
[2018-04-25 12:20] LABS: Calcium 8.8 mg/dL (8.5-10.1); Carbon Dioxide 24.8 meq/L (21.0-32.0); Potassium 5.3 meq/L (3.5-5.1)
--- NOTE | 2018-04-25 13:01 | P.PNNP ---
Subjective Interval history: Patient with left-sided abdominal pain refusing TPN Physical Exam Vital signs: Vital Signs 04/24/18 13:00 04/24/18 14:00 04/24/18 15:00 Temperature 98.4 F Pulse Rate 74 76 73 Respiratory Rate 16 16 16 Blood Pressure 116/72 139/84 116/74 Pulse Oximetry 98 97 97 04/24/18 16:00 04/24/18 17:00 04/24/18 18:00 Temperature 98.4 F Pulse Rate 73 87 80 Respiratory Rate 16 Blood Pressure 116/74 Pulse Oximetry 97 04/24/18 19:00 04/24/18 20:00 04/24/18 20:42 Temperature 98.7 F Pulse Rate 78 76 77 Respiratory Rate 16 16 Blood Pressure 138/70 Pulse Oximetry 97 04/24/18 21:00 04/24/18 22:00 04/24/18 22:29 Temperature Pulse Rate 78 74 Respiratory Rate 16 Blood Pressure Pulse Oximetry 04/24/18 23:00 04/25/18 00:00 04/25/18 01:00 Temperature 98.6 F Pulse Rate 76 74 74 Respiratory Rate 16 Blood Pressure 112/58 L Pulse Oximetry 97 04/25/18 02:00 04/25/18 03:00 04/25/18 04:00 Temperature 98.6 F Pulse Rate 80 76 78 Respiratory Rate 16 Blood Pressure 108/55 L Pulse Oximetry 97 04/25/18 05:00 04/25/18 06:00 04/25/18 07:00 Temperature Pulse Rate 78 80 81 Respiratory Rate Blood Pressure Pulse Oximetry 04/25/18 08:00 04/25/18 09:00 04/25/18 10:00 Temperature 98.6 F Pulse Rate 81 84 84 Respiratory Rate 16 Blood Pressure 109/61 Pulse Oximetry 97 04/25/18 11:00 04/25/18 11:56 04/25/18 11:58 Temperature 98.2 F Pulse Rate 89 81 86 Respiratory Rate 16 Blood Pressure 107/61 Pulse Oximetry 96 Intake & Output 04/24/18 04/25/18 04/25/18 18:59 06:59 18:59 Intake Total 1820 / 1820 2920 / 2920 1100 / 1100 Output Total 600 / 600 1000 / 1000 Balance 1220 / 1220 1920 / 1920 1100 / 1100 Weight 57.6 kg Intake: IV 1100 / 1100 2200 / 2200 1100 / 1100 NS Inj 1,000 ML @ 100 mls/hr IV 1000 / 1000 2000 / 2000 1000 / 1000 .CONT .Q10H [facility] Rx#:[id number] Magnesium Sulfate Inj 2 GM In 100 / 100 NS Inj 96 ML @ 50 mls/hr IV.SIG ONCE ONE Rx#:[id number] Merrem Inj 1,000 MG In NS Inj 100 / 100 100 / 100 100 / 100 100 ML @ 200 mls/hr IV.SIG Q12H [facility] Rx#:[id number] Oral 720 / 720 720 / 720 Output: Urine 600 / 600 1000 / 1000 Other: Date of Last Bowel Movement 04/24/18 # Bowel Movements 3 Narrative: GENERAL: well-developed patient. SKIN: Warm and dry. HEAD: Normocephalic. EYES: No scleral icterus. No injection or drainage. NECK: Supple, trachea midline. No JVD or lymphadenopathy. CARDIOVASCULAR: Regular rate and rhythm without murmurs, gallops, or rubs. RESPIRATORY: Breath sounds equal bilaterally. No accessory muscle use. GASTROINTESTINAL: Abdomen mild tenderness left side nondistended. EXTREMITIES: As above NEUROLOGICAL: Awake, alert, and oriented x 3. Non-focal. Assessment and Plan - Plan Patient with post Renal transplant done in 2017. Has recurrent UTI. Now admitted with another episode. Creatinine is 1.3, On Prograf 4 mg BID. Benadryl IV for itching. Ward line inserted. Cultures all negative, ID following. On Meropenem. Patient refusing TPN dm HIGH patients takes 12 units bid here LEVEMIR IS 10 UNITS Q HS changed to bid dosing
--- NOTE | 2018-04-25 14:10 | P.PNID ---
Subjective Remarks: Patient is a 57-year-old female, with a very complicated medical and surgical history, was recently hospitalized for fevers. She was later diagnosed to have urinary tract infection and was discharged on Augmentin. Patient completed the course of antibiotics about 3 days ago. She has had follow-up urinalysis which showed improvement in her pyuria. Her problems started 1 day prior to admission when she developed significant weakness, and later on she started having problem with difficulty urinating, some suprapubic discomfort. When she started urinating she really did not have any dysuria, but had noted decrease in her urine output. She also has been having problem with epigastric pain which was present when she was here during her last admission, but it got better by the time she was discharged, and recently started back again about a week ago. She has chronic nausea but has not had any vomiting. Denies any respiratory complaint. She has been having a lot of reflux symptoms and actually has been sleeping upright. Has not had any fevers, but has had chills for about 2 days on and off. She is also been having sweats since she was discharged from the hospital. She had some episode of blood when she urinated and had a bowel movement and this was about a week ago, and she stopped her anticoagulation. That has stopped. During that time she also noted some nosebleed. Patient called her transplant surgeon, and she was advised to go to the emergency room for further evaluation and treatment. Past Hx: Gastroparesis 2010 Pancreatectomy, islet cell transplant Reza-en-Y duodenal jejunostomy, hepaticojejunostomy, pancreaticojejunostomy, splenectomy 2011 exp lap, RHIANNA, closure of enterotomy in the pancreaticobiliary limb, and terminal ileal through distal sigmoid resection Adult polycystic liver and kidney disease Chronic abdominal pain 2013 extensive RHIANNA, L decortication, and nephrectomy 2016 placement of LUE AVG June 2017 Unrelated donor renal transplant and left nephrectomy August 2017 exp lap, RHIANNA, revision of ileocolic anastomosis September 2017 dev hydro transplant kidney, septic shock, E coli ESBL , and had DVT L femoral vein December 2017 exp lap RHIANNA, and more surgery to bowels previous Ward and removal Notes reviewed Temps normal Feels better Nausea baseline Epigastric pain/abdominal pain better PO intake fair No vomiting Creatinine better Refusing TPN has Ward cath placed UC negative Urine collected before she got her first dose of Abx C/O vaginal yeast infection WBC better Platelets increasing again Hematology following GI following Had some HAMLIN and neurology did some work-up - imaging studies negative; states she got better after dose of steroids 04/24 Antibiotics: Meropenem Lines: RITO Ward Past Medical History: Gastroparesis Diabetes Dumping syndrome Fracture, femur GERD (gastroesophageal reflux disease) Gastroparesis History of hysterectomy Kidney failure Liver function failure H/O splenectomy History of colectomy History of intestinal surgery History of oophorectomy History of pancreatectomy Kidney transplant recipient Surgical procedure on lower extremity within past 6 months Allergies/Adverse Reactions: Allergies metronidazole [From Flagyl] Allergy (Mild, Verified 04/22/18 16:51) Swelling of the Eye oxycodone Allergy (Mild, Verified 04/22/18 16:52) Itching, Generalized oxytetracycline [From Terramycin] Allergy (Mild, Verified 03/27/18 18:27) Hives fentanyl Allergy (Verified 04/05/18 17:07) Edema filgrastim [From Neupogen] Allergy (Verified 04/05/18 10:48) Anaphylaxis Objective Vital Signs 04/24/18 15:00 04/24/18 16:00 04/24/18 17:00 Temperature 98.4 F 98.4 F Pulse Rate 73 73 87 Respiratory Rate 16 16 Blood Pressure 116/74 116/74 Pulse Oximetry 97 97 04/24/18 18:00 04/24/18 19:00 04/24/18 20:00 Temperature Pulse Rate 80 78 76 Respiratory Rate 16 Blood Pressure Pulse Oximetry 04/24/18 20:42 04/24/18 21:00 04/24/18 22:00 Temperature 98.7 F Pulse Rate 77 78 74 Respiratory Rate 16 Blood Pressure 138/70 Pulse Oximetry 97 04/24/18 22:29 04/24/18 23:00 04/25/18 00:00 Temperature 98.6 F Pulse Rate 76 74 Respiratory Rate 16 16 Blood Pressure 112/58 L Pulse Oximetry 97 04/25/18 01:00 04/25/18 02:00 04/25/18 03:00 Temperature Pulse Rate 74 80 76 Respiratory Rate Blood Pressure Pulse Oximetry 04/25/18 04:00 04/25/18 05:00 04/25/18 06:00 Temperature 98.6 F Pulse Rate 78 78 80 Respiratory Rate 16 Blood Pressure 108/55 L Pulse Oximetry 97 04/25/18 07:00 04/25/18 08:00 04/25/18 09:00 Temperature 98.6 F Pulse Rate 81 81 84 Respiratory Rate 16 Blood Pressure 109/61 Pulse Oximetry 97 04/25/18 10:00 04/25/18 11:00 04/25/18 11:56 Temperature 98.2 F Pulse Rate 84 89 81 Respiratory Rate 16 Blood Pressure 107/61 Pulse Oximetry 96 04/25/18 11:58 Temperature Pulse Rate 86 Respiratory Rate Blood Pressure Pulse Oximetry Intake & Output 04/24/18 04/25/18 04/25/18 18:59 06:59 18:59 Intake Total 1820 / 1820 2920 / 2920 1100 / 1100 Output Total 600 / 600 1000 / 1000 Balance 1220 / 1220 1920 / 1920 1100 / 1100 Weight 57.6 kg Intake: IV 1100 / 1100 2200 / 2200 1100 / 1100 NS Inj 1,000 ML @ 100 mls/hr IV 1000 / 1000 2000 / 2000 1000 / 1000 .CONT .Q10H [facility] Rx#:[id number] Magnesium Sulfate Inj 2 GM In 100 / 100 NS Inj 96 ML @ 50 mls/hr IV.SIG ONCE ONE Rx#:[id number] Merrem Inj 1,000 MG In NS Inj 100 / 100 100 / 100 100 / 100 100 ML @ 200 mls/hr IV.SIG Q12H [facility] Rx#:[id number] Oral 720 / 720 720 / 720 Output: Urine 600 / 600 1000 / 1000 Other: Date of Last Bowel Movement 04/24/18 # Bowel Movements 3 04/23/18 00:43 Blood - Peripheral Aerobic Blood Culture - Preliminary No growth in 2 days 04/23/18 00:43 Blood - Peripheral Anaerobic Blood Culture - Preliminary No growth in 2 days 04/23/18 00:35 Blood - Peripheral Aerobic Blood Culture - Preliminary No growth in 2 days 04/23/18 00:35 Blood - Peripheral Anaerobic Blood Culture - Preliminary No growth in 2 days 04/22/18 09:50 Clean Catch Urine Urine Culture - Final No growth in 48 hours Lab - Hematology Results 04/24/18 04/24/18 04/25/18 09:55 09:55 08:20 WBC 8.6 6.7 RBC 2.98 L 3.01 L Hgb 8.2 L 8.5 L Hct 26.2 L 26.7 L MCV 87.9 88.7 MCH 27.6 28.4 MCHC 31.4 L 32.0 RDW 17.0 17.3 H Plt Count 862 H 949 H MPV 9.1 8.9 Neut % (Auto) 80.3 H 73.5 H Lymph % (Auto) 3.3 L 12.4 [place] % (Auto) 12.3 H 13.1 H Eos % (Auto) 3.6 0.4 Baso % (Auto) 0.5 0.6 Neut # (Auto) 6.9 4.9 Lymph # (Auto) 0.3 L 0.8 L [place] # (Auto) 1.1 H 0.9 Eos # (Auto) 0.3 0.0 Baso # (Auto) 0.0 0.0 WBC Differential . . Differential Comment Auto diff final Auto diff final ESR 66 H Lab - Chemistry Results 04/23/18 04/23/18 04/24/18 15:56 21:52 07:59 Sodium Potassium Chloride Carbon Dioxide Anion Gap BUN Creatinine Estimated GFR POC Glucose 230 H 189 H 267 H Random Glucose Calcium Phosphorus Magnesium Vitamin B12 04/24/18 04/24/18 04/24/18 09:55 09:55 09:55 Sodium 135 L Potassium 4.9 Chloride 106 Carbon Dioxide 23.5 Anion Gap 6 BUN 12 Creatinine 1.01 H Estimated GFR 56 L POC Glucose Random Glucose 243 H D Calcium 8.9 Phosphorus Cancelled 2.6 Magnesium Cancelled 1.5 Vitamin B12 04/24/18 04/24/18 04/24/18 09:55 11:06 15:07 Sodium Potassium Chloride Carbon Dioxide Anion Gap BUN Creatinine Estimated GFR POC Glucose 246 H 172 H Random Glucose Calcium Phosphorus Magnesium Vitamin B12 318 04/24/18 04/25/18 04/25/18 21:39 08:06 08:20 Sodium 133 L Potassium 5.7 H D Chloride 102 Carbon Dioxide 22.5 Anion Gap 9 BUN 18 Creatinine 1.36 H Estimated GFR 40 L POC Glucose 459 H* 433 H Random Glucose 428 H D Calcium 9.2 Phosphorus 2.8 Magnesium 1.8 Vitamin B12 04/25/18 04/25/18 11:19 11:20 Sodium 131 L Potassium 5.3 H Chloride 101 Carbon Dioxide 24.8 Anion Gap 5 BUN 18 Creatinine 1.47 H Estimated GFR 37 L POC Glucose 423 H Random Glucose 417 H Calcium 8.8 Phosphorus Magnesium Vitamin B12 Imaging: ITS Impressions Abdomen X-Ray 04/22/18 00:00 CONCLUSION: Negative examination. Abdomen/Pelvis CT 04/22/18 00:00 CONCLUSION: 1. No acute findings. The overall appearance of CT scan is stable compared to 04/04/2018 with multiple findings as described above. Head/Brain Mag Res Venography 04/24/18 00:00 CONCLUSION: 1. Negative MRV Brain non contrast. Ward Line Insertion 04/24/18 00:00 CONCLUSION: Uncomplicated ultrasound and fluoroscopic guided Ward catheter placement as above. Head MRI 04/24/18 14:21 CONCLUSION: 1. Unremarkable MRI of the brain. Head MRA 04/24/18 14:21 CONCLUSION: 1. Negative MRA [place] ([place]) non contrast. Physical Exam: GENERAL: Awake and alert, not in distress HEENT: Head atraumatic. Pupils reactive to light. Extraocular movements intact. No icterus. Moist mucosa NECK: Supple without adenopathy. No swelling. LUNGS: Clear breath sounds bilateral. HEART: Regular S1 and S2. No murmurs heard. ABDOMEN: Bowel sounds present, soft, with mild diffuse tenderness; scars C/W surgical history. No guarding or rebound EXTREMITIES: No clubbing, cyanosis or edema. SKIN: No generalized rash. Cool and dry NEUROLOGIC: Grossly non-focal PSYCH: Calm and cooperative. LINE: Wrad cath R site ok, no evidence of infection Assessment and Plan - Plan Impression Possible sepsis, better Recurrent UTI, UA with pyuria, but UC negative Weakness, leukocytosis, possibly due to sepsis, better S/P renal transplant Chronic abdominal pain, nausea, hx gastroparesis, has had multiple and extensive abdominal surgeries Renal insufficiency, back to baseline HAMLIN, work-up negative, better after decadron Recommendation Change meropenem to INvanz - not clear why UC negative - she has had problem with infection ESBL+ organisms If she remains stable, I would give Invanz to complete her UTI RX, 14 days abx on dc Repeat UA to reevaluate her pyuria Diflucan for her vaginitis symptoms Monitor progress She has had recurrent UTI, and will likely need further evaluate if she keeps getting infected Explained plan to patient D/W Dr Patel earlier today
[2018-04-25] MEDS ORDERED: ASP: Documented ESBL, MDR A baumannii or P. aeruginosa OTHER PRN (14:17)
--- NOTE | 2018-04-25 14:23 | P.CONGI ---
History of Present Illness Consult date: 04/25/18 Consult reason: Abdominal pain No etiology History of chronic pain Chief complaint: Abd pain,hx renal transplant,LIBBY,dehydration History of Present Illness: This patient is a 57-year-old female with a past medical history of diabetes mellitus, dumping syndrome, chronic diarrhea, GERD, gastroparesis, renal transplant and splenectomy. Patient also has medical history of polycystic kidney disease, recurrent DVT/PE, chronic pancreatitis. Surgical history includes total pancreatectomy in 2010, revision of anastomosis from liver to intestines in January 2018, and renal transplant. Patient presented to the emergency room at [facility] on 04/22/2018 with complaint of generalized abdominal pain and excessive belching with reflux consisting of undigested food. Upon consultation, patient states that she has had reflux of undigested food for the past 2-1/2-3 weeks since discontinuing TPN during last admission. Patient reports increased frequency of belching states unrelieved by antireflux precautions, Dexilant and Reglan. Patient also reports epigastric pain that is tender in nature onset 2-3 days ago. States she maintains a diabetic diet at home consisting of egg, other proteins, shakes and various starches. Patient endorses chronic nausea and states that that is unchanged. 04/22/2018 CT of the abdomen and pelvis revealed the following findings--> No acute findings. The overall appearance of CT scan is stable compared to 2017 with multiple findings as described above. Patient states she has 2 sit upright to sleep at night due to persistent reflux of undigested food. She eats her last meal at 4:30 PM and goes to bed 6 hours later. Patient denies any difficulty or pain with swallowing and denies heartburn. States she is on Dexilant 60 mg p.o. daily. Last EGD was done on 04/05/2018 and reveal the following findings--> 1. There was LA Class A esophagitis noted 2. Approx 450cc of fluid retained in the stomach. Suctioned. Gastro - jujenostomy identified. Small bowel mucosa normal 3. Food residue in the gastric body 4. Normal duodenal mucosa 5. Retroflexed views revealed no abnormalities. Patient denies constipation or diarrhea. Reports daily stools 1-2 times soft and brown without any noted bleeding. Last colonoscopy was done on 04/05/2018 and revealed the following findings--> 1. There was evidence of prior surgical anastomosis; biopsy was performed using cold forceps 2. Retroflexed views revealed internal hemorrhoid 3. Revealed external hemorrhoids. Our service has been consulted to evaluate patient's report of persistent reflux of undigested food with epigastric abdominal pain. <Yuliana Christine - Last Filed: 04/25/18 14:04> Review of Systems All other systems reviewed negative except as stated in HPI <Yuliana Christine - Last Filed: 04/25/18 14:04> PMFSH - History History Provided By: Patient - Medical History Medical History: Medical History (Last Reviewed 04/22/18 @ 15:19 by Pam Austin MD) Gastroparesis Diabetes Dumping syndrome Fracture, femur GERD (gastroesophageal reflux disease) Gastroparesis History of hysterectomy Kidney failure Liver function failure - Surgical History Surgical History: Surgical History (Last Reviewed 04/22/18 @ 15:19 by Pam Austin MD) H/O splenectomy History of colectomy History of intestinal surgery History of oophorectomy History of pancreatectomy Kidney transplant recipient Surgical procedure on lower extremity within past 6 months - Family History Family History: Family History (Last Reviewed 04/22/18 @ 15:19 by Pam Austin MD) Other No family history of cardiac disease - Tobacco History Second Hand Smoke Exposure: No Tobacco Use In Past 30 Days: No Smoking Status: Never smoker Tobacco Type: Cigarettes Smoking End Date: 2008 (smoke 1/4 PPD off and on for 10 years before quitting in 2008) - Alcohol History How Often Do You Have a Drink Containing Alcohol: Never - Substance Use History Substance History: No History of Abuse - Travel History History of Recent Travel: Yes (was in [place] then [place]) [facility] Within the Last 8 Weeks: No Recent Travel Out of the Country Within the Last 8 Weeks: No - Immunization History Tetanus Immunization: <5 Years Hx Influenza Vaccine This Season: Yes <Yuliana Christine - Last Filed: 04/25/18 14:04> - Medical History Medical History: Medical History (Last Reviewed 04/22/18 @ 15:19 by Pam Austin MD) Gastroparesis Diabetes Dumping syndrome Fracture, femur GERD (gastroesophageal reflux disease) Gastroparesis History of hysterectomy Kidney failure Liver function failure - Surgical History Surgical History: Surgical History (Last Reviewed 04/22/18 @ 15:19 by Pam Austin MD) H/O splenectomy History of colectomy History of intestinal surgery History of oophorectomy History of pancreatectomy Kidney transplant recipient Surgical procedure on lower extremity within past 6 months - Family History Family History: Family History (Last Reviewed 04/22/18 @ 15:19 by Pam Austin MD) Other No family history of cardiac disease <Barbara Appiah - Last Filed: 04/25/18 18:06> Medications and Allergies Active Medications: Active Medications Acetaminophen (Tylenol) 650 mg PO Q4H PRN PRN Reason: Headache, fever, pain 1-4 Last Admin: 04/24/18 12:37 Dose: 650 mg Al Hydroxide/Mg Hydroxide (Milk Of Magnmilly Liq) 30 ml PO Q12H PRN PRN Reason: Mild Constipation Atorvastatin Calcium (Lipitor) 20 mg PO DAILY [facility] Last Admin: 04/25/18 09:36 Dose: 20 mg Bisacodyl (Dulcolax Supp) 10 mg RECTAL DAILY PRN PRN Reason: SEVERE CONSITIPATION Carvedilol (Coreg) 12.5 mg PO BID [facility] Last Admin: 04/25/18 09:36 Dose: 12.5 mg Dextrose (D50w Vial) 50 ml IV.PUSH UNSCH PRN PRN Reason: PER HYPOGLYCEMIA PROTOCOL Diphenhydramine HCl (Benadryl Inj) 25 mg IV.PUSH Q6H PRN PRN Reason: ITCHING Diphenhydramine HCl (Benadryl) 25 mg PO Q6H PRN PRN Reason: itching or headache Last Admin: 04/25/18 09:33 Dose: 25 mg Enoxaparin Sodium (Lovenox Inj) 40 mg SQ Q24H [facility] Last Admin: 04/24/18 17:04 Dose: 40 mg Glucagon (Glucagon Inj) 1 mg OTHER PRN PRN PRN Reason: for Hypoglycemia Protocol Heparin Sodium (Porcine) (Heparin Central Flush) 0 unit IV.FLUSH DAILY [facility] Last Admin: 04/25/18 09:37 Dose: 250 unit Heparin Sodium (Porcine) (Heparin Central Flush) 0 unit IV.FLUSH PRN PRN PRN Reason: Flush each lumen Hydromorphone HCl (Dilaudid Pf Inj) 2 mg IV.PUSH Q4H PRN PRN Reason: Pain 7-10 if NPO Last Admin: 04/25/18 09:27 Dose: 2 mg Hydromorphone HCl (Dilaudid) 2 mg PO Q3H PRN PRN Reason: PAIN SCALE 1 TO 5 Last Admin: 04/23/18 11:44 Dose: 2 mg Hydromorphone HCl (Dilaudid) 4 mg PO Q6H PRN PRN Reason: PAIN SCALE 6 TO 10 Last Admin: 04/24/18 12:48 Dose: 4 mg Sodium Chloride (Ns Inj) 1,000 mls @ 100 mls/hr IV.CONT .Q10H [facility] Last Admin: 04/25/18 10:35 Dose: 100 mls/hr Meropenem 1,000 mg/ Sodium (Chloride) 100 mls @ 200 mls/hr IV.SIG Q12H [facility] Last Infusion: 04/25/18 10:36 Dose: Infused Insulin Aspart (Novolog Insulin Correctional Sugar Inj) 0 unit SQ ACHS [facility]; Protocol Last Admin: 04/25/18 11:31 Dose: 9 unit Insulin Detemir (Levemir Inj) 10 unit SQ BID [facility] Lactulose (Lactulose Liq) 30 ml PO DAILY PRN PRN Reason: SEVERE CONSITIPATION Metoclopramide HCl (Reglan) 5 mg PO ACHS [facility] Last Admin: 04/25/18 11:31 Dose: 5 mg Ondansetron HCl (Zofran Inj) 4 mg IV.PUSH Q6H PRN PRN Reason: NAUSEA OR VOMITING Last Admin: 04/25/18 01:25 Dose: 4 mg Pantoprazole Sodium (Protonix) 40 mg PO BID [facility] Last Admin: 04/25/18 09:35 Dose: 40 mg Prednisone (Deltasone) 10 mg PO DAILY [facility] Last Admin: 04/25/18 09:35 Dose: 10 mg Prochlorperazine Edisylate (Compazine Inj) 5 mg IV.PUSH Q6H PRN PRN Reason: HEADACHE Last Admin: 04/25/18 09:33 Dose: 5 mg Sennosides (Senokot) 17.2 mg PO Q12H PRN PRN Reason: Moderate Constipation Sodium Chloride (Ns Flush) 0 ml IV.FLUSH PRN PRN PRN Reason: FLUSH AFTER USING IV ACCESS Sodium Chloride (Ns Flush) 0 ml IV.FLUSH DAILY [facility] Last Admin: 04/25/18 09:37 Dose: 10 ml Tacrolimus (Prograf) 4 mg PO Q12HR [facility] Last Admin: 04/25/18 09:36 Dose: 4 mg <Yuliana Christine - Last Filed: 04/25/18 14:04> Active Medications: Active Medications Acetaminophen (Tylenol) 650 mg PO Q4H PRN PRN Reason: Headache, fever, pain 1-4 Last Admin: 04/24/18 12:37 Dose: 650 mg Al Hydroxide/Mg Hydroxide (Milk Of Magnmilly Liq) 30 ml PO Q12H PRN PRN Reason: Mild Constipation Atorvastatin Calcium (Lipitor) 20 mg PO DAILY [facility] Last Admin: 04/25/18 09:36 Dose: 20 mg Bisacodyl (Dulcolax Supp) 10 mg RECTAL DAILY PRN PRN Reason: SEVERE CONSITIPATION Carvedilol (Coreg) 12.5 mg PO BID [facility] Last Admin: 04/25/18 09:36 Dose: 12.5 mg Dextrose (D50w Vial) 50 ml IV.PUSH UNSCH PRN PRN Reason: PER HYPOGLYCEMIA PROTOCOL Enoxaparin Sodium (Lovenox Inj) 40 mg SQ Q24H [facility] Last Admin: 04/25/18 17:16 Dose: 40 mg Glucagon (Glucagon Inj) 1 mg OTHER PRN PRN PRN Reason: for Hypoglycemia Protocol Heparin Sodium (Porcine) (Heparin Central Flush) 0 unit IV.FLUSH DAILY [facility] Last Admin: 04/25/18 09:37 Dose: 250 unit Heparin Sodium (Porcine) (Heparin Central Flush) 0 unit IV.FLUSH PRN PRN PRN Reason: Flush each lumen Hydromorphone HCl (Dilaudid Pf Inj) 2 mg IV.PUSH Q4H PRN PRN Reason: Pain 7-10 if NPO Last Admin: 04/25/18 14:45 Dose: 2 mg Hydromorphone HCl (Dilaudid) 2 mg PO Q3H PRN PRN Reason: PAIN SCALE 1 TO 5 Last Admin: 04/23/18 11:44 Dose: 2 mg Hydromorphone HCl (Dilaudid) 4 mg PO Q6H PRN PRN Reason: PAIN SCALE 6 TO 10 Last Admin: 04/24/18 12:48 Dose: 4 mg Hydroxyzine HCl (Vistaril Inj) 25 mg IM Q8H PRN PRN Reason: ITCHING Last Admin: 04/25/18 17:57 Dose: 25 mg Sodium Chloride (Ns Inj) 1,000 mls @ 100 mls/hr IV.CONT .Q10H [facility] Last Admin: 04/25/18 10:35 Dose: 100 mls/hr Ertapenem 1,000 mg/ Sodium (Chloride) 100 mls @ 200 mls/hr IV.SIG Q24H [facility] Last Infusion: 04/25/18 15:15 Dose: Infused Insulin Aspart (Novolog Insulin Correctional Sugar Inj) 0 unit SQ ACHS [facility]; Protocol Last Admin: 04/25/18 17:15 Dose: 5 unit Insulin Detemir (Levemir Inj) 10 unit SQ BID [facility] Lactulose (Lactulose Liq) 30 ml PO DAILY PRN PRN Reason: SEVERE CONSITIPATION Metoclopramide HCl (Reglan) 5 mg PO [facility] Last Admin: 04/25/18 17:15 Dose: 5 mg Miscellaneous Medication (Asp Crit: Doc Esbl, Mdr A Baumannii Or P Aer) 1 each OTHER UNSCH PRN PRN Reason: PHARMACY DOCUMENTATION Stop: 04/26/18 14:16 Ondansetron HCl (Zofran Inj) 4 mg IV.PUSH Q6H PRN PRN Reason: NAUSEA OR VOMITING Last Admin: 04/25/18 01:25 Dose: 4 mg Pantoprazole Sodium (Protonix) 40 mg PO BID [facility] Last Admin: 04/25/18 09:35 Dose: 40 mg Prednisone (Deltasone) 10 mg PO DAILY [facility] Last Admin: 04/25/18 09:35 Dose: 10 mg Prochlorperazine Edisylate (Compazine Inj) 5 mg IV.PUSH Q6H PRN PRN Reason: HEADACHE Last Admin: 04/25/18 14:45 Dose: 5 mg Sennosides (Senokot) 17.2 mg PO Q12H PRN PRN Reason: Moderate Constipation Sodium Chloride (Ns Flush) 0 ml IV.FLUSH PRN PRN PRN Reason: FLUSH AFTER USING IV ACCESS Sodium Chloride (Ns Flush) 0 ml IV.FLUSH DAILY [facility] Last Admin: 04/25/18 09:37 Dose: 10 ml Tacrolimus (Prograf) 4 mg PO Q12HR [facility] Last Admin: 04/25/18 09:36 Dose: 4 mg <Hemaidan,Ammar - Last Filed: 04/25/18 18:06> Allergies Allergy/AdvReac Type Severity Reaction Status Date / Time metronidazole [From Flagyl] Allergy Mild Swelling Verified 04/22/18 16:51 of the Eye oxycodone Allergy Mild Itching, Verified 04/22/18 16:52 Generalized oxytetracycline Allergy Mild Hives Verified 03/27/18 18:27 [From Terramycin] fentanyl Allergy Edema Verified 04/05/18 17:07 filgrastim [From Neupogen] Allergy Anaphylaxis Verified 04/05/18 10:48 Home Medications Medication Instructions Recorded Confirmed Type Phenergan 25 mg PO Q6-8H PRN 03/27/18 04/22/18 History acetaminophen 650 mg PO Q4H PRN 03/27/18 04/22/18 History atorvastatin 20 mg PO DAILY 03/27/18 04/22/18 History carvedilol 12.5 mg PO BID 03/27/18 04/22/18 History diphenoxylate-atropine [Lomotil] 1 tab PO TID 03/27/18 04/22/18 History enoxaparin 40 mg SUBCUT BID 03/27/18 04/22/18 History ergocalciferol (vitamin D2) 50,000 unit PO 3XW 03/27/18 04/22/18 History insulin glargine 12 unit SUBCUT QAM AND QHS 03/27/18 04/22/18 History insulin lispro 1 sliding scale dose SUBCUT UD 03/27/18 04/22/18 History [id number] [Creon] 1 cap PO TIDAC 03/27/18 04/22/18 History ondansetron 4 mg PO Q8H PRN 03/27/18 04/22/18 History prednisone 10 mg PO DAILY 03/27/18 04/22/18 History prochlorperazine maleate 10 mg PO Q6-8H PRN 03/27/18 04/22/18 History [Compazine] tacrolimus [Prograf] 4 mg PO Q12H 03/27/18 04/22/18 History dexlansoprazole [Dexilant] 60 mg PO DAILY 04/24/18 04/24/18 History metoclopramide HCl [Reglan] 5 mg PO TID 04/24/18 04/24/18 History Exam Vital signs: Vital Signs 04/24/18 15:00 04/24/18 16:00 04/24/18 17:00 Temperature 98.4 F 98.4 F Pulse Rate 73 73 87 Respiratory Rate 16 16 Blood Pressure 116/74 116/74 Pulse Oximetry 97 97 04/24/18 18:00 04/24/18 19:00 04/24/18 20:00 Temperature Pulse Rate 80 78 76 Respiratory Rate 16 Blood Pressure Pulse Oximetry 04/24/18 20:42 04/24/18 21:00 04/24/18 22:00 Temperature 98.7 F Pulse Rate 77 78 74 Respiratory Rate 16 Blood Pressure 138/70 Pulse Oximetry 97 04/24/18 22:29 04/24/18 23:00 04/25/18 00:00 Temperature 98.6 F Pulse Rate 76 74 Respiratory Rate 16 16 Blood Pressure 112/58 L Pulse Oximetry 97 04/25/18 01:00 04/25/18 02:00 04/25/18 03:00 Temperature Pulse Rate 74 80 76 Respiratory Rate Blood Pressure Pulse Oximetry 04/25/18 04:00 04/25/18 05:00 04/25/18 06:00 Temperature 98.6 F Pulse Rate 78 78 80 Respiratory Rate 16 Blood Pressure 108/55 L Pulse Oximetry 97 04/25/18 07:00 04/25/18 08:00 04/25/18 09:00 Temperature 98.6 F Pulse Rate 81 81 84 Respiratory Rate 16 Blood Pressure 109/61 Pulse Oximetry 97 04/25/18 10:00 04/25/18 11:00 04/25/18 11:56 Temperature 98.2 F Pulse Rate 84 89 81 Respiratory Rate 16 Blood Pressure 107/61 Pulse Oximetry 96 04/25/18 11:58 Temperature Pulse Rate 86 Respiratory Rate Blood Pressure Pulse Oximetry Intake & Output 04/24/18 04/25/18 04/25/18 18:59 06:59 18:59 Intake Total 1820 / 1820 2920 / 2920 1100 / 1100 Output Total 600 / 600 1000 / 1000 Balance 1220 / 1220 1920 / 1920 1100 / 1100 Weight 57.6 kg Intake: IV 1100 / 1100 2200 / 2200 1100 / 1100 NS Inj 1,000 ML @ 100 mls/hr IV 1000 / 1000 2000 / 2000 1000 / 1000 .CONT .Q10H [facility] Rx#:[id number] Magnesium Sulfate Inj 2 GM In 100 / 100 NS Inj 96 ML @ 50 mls/hr IV.SIG ONCE ONE Rx#:[id number] Merrem Inj 1,000 MG In NS Inj 100 / 100 100 / 100 100 / 100 100 ML @ 200 mls/hr IV.SIG Q12H [facility] Rx#:[id number] Oral 720 / 720 720 / 720 Output: Urine 600 / 600 1000 / 1000 Other: Date of Last Bowel Movement 04/24/18 # Bowel Movements 3 - Constitutional no acute distress - Routine HEENT Exam Head: Present: normocephalic - Routine Respiratory Exam Present: CTA bilaterally. Absent: accessory muscle use - Routine Cardiovascular Exam Present: RRR - Routine Abdominal Exam Present: soft, normoactive bowel sounds, tenderness. Absent: distended, guarding, firm - Routine Extremities Exam Absent: edema - Routine Skin Exam Present: dry, warm - Routine Neurological Exam Present: alert, oriented X3 <Christine,Yuliana - Last Filed: 04/25/18 14:04> Vital signs: Vital Signs 04/24/18 19:00 04/24/18 20:00 04/24/18 20:42 Temperature 98.7 F Pulse Rate 78 76 77 Respiratory Rate 16 16 Blood Pressure 138/70 Pulse Oximetry 97 04/24/18 21:00 04/24/18 22:00 04/24/18 22:29 Temperature Pulse Rate 78 74 Respiratory Rate 16 Blood Pressure Pulse Oximetry 04/24/18 23:00 04/25/18 00:00 04/25/18 01:00 Temperature 98.6 F Pulse Rate 76 74 74 Respiratory Rate 16 Blood Pressure 112/58 L Pulse Oximetry 97 04/25/18 02:00 04/25/18 03:00 04/25/18 04:00 Temperature 98.6 F Pulse Rate 80 76 78 Respiratory Rate 16 Blood Pressure 108/55 L Pulse Oximetry 97 04/25/18 05:00 04/25/18 06:00 04/25/18 07:00 Temperature Pulse Rate 78 80 81 Respiratory Rate Blood Pressure Pulse Oximetry 04/25/18 08:00 04/25/18 09:00 04/25/18 10:00 Temperature 98.6 F Pulse Rate 81 84 84 Respiratory Rate 16 Blood Pressure 109/61 Pulse Oximetry 97 04/25/18 11:00 04/25/18 11:56 04/25/18 11:58 Temperature 98.2 F Pulse Rate 89 81 86 Respiratory Rate 16 Blood Pressure 107/61 Pulse Oximetry 96 04/25/18 13:00 04/25/18 14:00 04/25/18 15:00 Temperature Pulse Rate 77 75 75 Respiratory Rate Blood Pressure Pulse Oximetry 04/25/18 15:51 04/25/18 15:53 Temperature 98 F Pulse Rate 72 76 Respiratory Rate 14 Blood Pressure 120/67 Pulse Oximetry 96 Intake & Output 04/24/18 04/25/18 04/25/18 18:59 06:59 18:59 Intake Total 1820 / 1820 2920 / 2920 1200 / 1200 Output Total 600 / 600 1000 / 1000 Balance 1220 / 1220 1920 / 1920 1200 / 1200 Weight 57.6 kg Intake: IV 1100 / 1100 2200 / 2200 1200 / 1200 NS Inj 1,000 ML @ 100 mls/hr IV 1000 / 1000 2000 / 2000 1000 / 1000 .CONT .Q10H [facility] Rx#:[id number] INVanz Inj 1,000 MG In NS Inj 100 / 100 100 ML @ 200 mls/hr IV.SIG Q24H [facility] Rx#:[id number] Magnesium Sulfate Inj 2 GM In 100 / 100 NS Inj 96 ML @ 50 mls/hr IV.SIG ONCE ONE Rx#:[id number] Merrem Inj 1,000 MG In NS Inj 100 / 100 100 / 100 100 / 100 100 ML @ 200 mls/hr IV.SIG Q12H [facility] Rx#:[id number] Oral 720 / 720 720 / 720 Output: Urine 600 / 600 1000 / 1000 Other: Date of Last Bowel Movement 04/24/18 # Bowel Movements 3 <Hemaidan,Ammar - Last Filed: 04/25/18 18:06> Results - Labs CBC & Chem 7: 04/25/18 08:20 04/25/18 11:20 Labs: Laboratory Results - last 24 hr 04/24/18 04/24/18 04/24/18 09:55 09:55 09:55 WBC RBC Hgb Hct MCV MCH MCHC RDW Plt Count MPV Neut % (Auto) Lymph % (Auto) [place] % (Auto) Eos % (Auto) Baso % (Auto) Neut # (Auto) Lymph # (Auto) [place] # (Auto) Eos # (Auto) Baso # (Auto) WBC Differential Differential Comment ESR 66 H Sodium Potassium Chloride Carbon Dioxide Anion Gap BUN Creatinine Estimated GFR POC Glucose Random Glucose Calcium Phosphorus Magnesium Vitamin B12 318 Tacrolimus 8.8 04/24/18 04/24/18 04/25/18 15:07 21:39 08:06 WBC RBC Hgb Hct MCV MCH MCHC RDW Plt Count MPV Neut % (Auto) Lymph % (Auto) [place] % (Auto) Eos % (Auto) Baso % (Auto) Neut # (Auto) Lymph # (Auto) [place] # (Auto) Eos # (Auto) Baso # (Auto) WBC Differential Differential Comment ESR Sodium Potassium Chloride Carbon Dioxide Anion Gap BUN Creatinine Estimated GFR POC Glucose 172 H 459 H* 433 H Random Glucose Calcium Phosphorus Magnesium Vitamin B12 Tacrolimus 04/25/18 04/25/18 04/25/18 08:20 08:20 08:20 WBC 6.7 RBC 3.01 L Hgb 8.5 L Hct 26.7 L MCV 88.7 MCH 28.4 MCHC 32.0 RDW 17.3 H Plt Count 949 H MPV 8.9 Neut % (Auto) 73.5 H Lymph % (Auto) 12.4 [place] % (Auto) 13.1 H Eos % (Auto) 0.4 Baso % (Auto) 0.6 Neut # (Auto) 4.9 Lymph # (Auto) 0.8 L [place] # (Auto) 0.9 Eos # (Auto) 0.0 Baso # (Auto) 0.0 WBC Differential . Differential Comment Auto diff final ESR Sodium 133 L Potassium 5.7 H D Chloride 102 Carbon Dioxide 22.5 Anion Gap 9 BUN 18 Creatinine 1.36 H Estimated GFR 40 L POC Glucose Random Glucose 428 H D Calcium 9.2 Phosphorus 2.8 Magnesium 1.8 Vitamin B12 Tacrolimus 13.4 04/25/18 04/25/18 11:19 11:20 WBC RBC Hgb Hct MCV MCH MCHC RDW Plt Count MPV Neut % (Auto) Lymph % (Auto) [place] % (Auto) Eos % (Auto) Baso % (Auto) Neut # (Auto) Lymph # (Auto) [place] # (Auto) Eos # (Auto) Baso # (Auto) WBC Differential Differential Comment ESR Sodium 131 L Potassium 5.3 H Chloride 101 Carbon Dioxide 24.8 Anion Gap 5 BUN 18 Creatinine 1.47 H Estimated GFR 37 L POC Glucose 423 H Random Glucose 417 H Calcium 8.8 Phosphorus Magnesium Vitamin B12 Tacrolimus - Imaging Impressions Head/Brain Mag Res Venography 04/24/18 00:00 CONCLUSION: 1. Negative MRV Brain non contrast. Head MRI 04/24/18 14:21 CONCLUSION: 1. Unremarkable MRI of the brain. Head MRA 04/24/18 14:21 CONCLUSION: 1. Negative MRA [place] ([place]) non contrast. <Yuliana Christine - Last Filed: 04/25/18 14:04> - Labs CBC & Chem 7: 04/25/18 08:20 04/25/18 11:20 Labs: Laboratory Results - last 24 hr 04/24/18 04/25/18 04/25/18 21:39 08:06 08:20 WBC 6.7 RBC 3.01 L Hgb 8.5 L Hct 26.7 L MCV 88.7 MCH 28.4 MCHC 32.0 RDW 17.3 H Plt Count 949 H MPV 8.9 Neut % (Auto) 73.5 H Lymph % (Auto) 12.4 [place] % (Auto) 13.1 H Eos % (Auto) 0.4 Baso % (Auto) 0.6 Neut # (Auto) 4.9 Lymph # (Auto) 0.8 L [place] # (Auto) 0.9 Eos # (Auto) 0.0 Baso # (Auto) 0.0 WBC Differential . Differential Comment Auto diff final Sodium Potassium Chloride Carbon Dioxide Anion Gap BUN Creatinine Estimated GFR POC Glucose 459 H* 433 H Random Glucose Calcium Phosphorus Magnesium Tacrolimus 04/25/18 04/25/18 04/25/18 08:20 08:20 11:19 WBC RBC Hgb Hct MCV MCH MCHC RDW Plt Count MPV Neut % (Auto) Lymph % (Auto) [place] % (Auto) Eos % (Auto) Baso % (Auto) Neut # (Auto) Lymph # (Auto) [place] # (Auto) Eos # (Auto) Baso # (Auto) WBC Differential Differential Comment Sodium 133 L Potassium 5.7 H D Chloride 102 Carbon Dioxide 22.5 Anion Gap 9 BUN 18 Creatinine 1.36 H Estimated GFR 40 L POC Glucose 423 H Random Glucose 428 H D Calcium 9.2 Phosphorus 2.8 Magnesium 1.8 Tacrolimus 13.4 04/25/18 04/25/18 04/25/18 11:20 15:21 16:45 WBC RBC Hgb Hct MCV MCH MCHC RDW Plt Count MPV Neut % (Auto) Lymph % (Auto) [place] % (Auto) Eos % (Auto) Baso % (Auto) Neut # (Auto) Lymph # (Auto) [place] # (Auto) Eos # (Auto) Baso # (Auto) WBC Differential Differential Comment Sodium 131 L Potassium 5.3 H Chloride 101 Carbon Dioxide 24.8 Anion Gap 5 BUN 18 Creatinine 1.47 H Estimated GFR 37 L POC Glucose 268 H 297 H Random Glucose 417 H Calcium 8.8 Phosphorus Magnesium Tacrolimus <Barbara Appiah - Last Filed: 04/25/18 18:06> Assessment and Plan (1) Abdominal pain Status: Acute Code(s): R10.9 - Unspecified abdominal pain (2) Gastroparesis Status: Acute Code(s): K31.84 - Gastroparesis (3) Nausea Status: Acute Code(s): R11.0 - Nausea - Plan This patient is a 57-year-old female with a past medical history of diabetes mellitus, dumping syndrome, chronic diarrhea, GERD, gastroparesis, renal transplant and splenectomy. Patient also has medical history of polycystic kidney disease, recurrent DVT/PE, chronic pancreatitis. Surgical history includes total pancreatectomy in 2010, revision of anastomosis from liver to intestines in January 2018, and renal transplant. Patient presented to the emergency room at [facility] on 04/22/2018 with complaint of generalized abdominal pain and excessive belching with reflux consisting of undigested food. Upon consultation, patient states that she has had reflux of undigested food for the past 2-1/2-3 weeks since discontinuing TPN during last admission. Patient reports increased frequency of belching states unrelieved by antireflux precautions, Dexilant and Reglan. Patient also reports epigastric pain that is tender in nature onset 2-3 days ago. States she maintains a diabetic diet at home consisting of egg, other proteins, shakes and various starches. Patient endorses chronic nausea and states that that is unchanged. 04/22/2018 CT of the abdomen and pelvis revealed the following findings--> No acute findings. The overall appearance of CT scan is stable compared to 2017 with multiple findings as described above. Patient states she has 2 sit upright to sleep at night due to persistent reflux of undigested food. She eats her last meal at 4:30 PM and goes to bed 6 hours later. Patient denies any difficulty or pain with swallowing and denies heartburn. States she is on Dexilant 60 mg p.o. daily. Last EGD was done on 04/05/2018 and reveal the following findings--> 1. There was [place] Class A esophagitis noted 2. Approx 450cc of fluid retained in the stomach. Suctioned. Gastro - jujenostomy identified. Small bowel mucosa normal 3. Food residue in the gastric body 4. Normal duodenal mucosa 5. Retroflexed views revealed no abnormalities. Patient denies constipation or diarrhea. Reports daily stools 1-2 times soft and brown without any noted bleeding. Last colonoscopy was done on 04/05/2018 and revealed the following findings--> 1. There was evidence of prior surgical anastomosis; biopsy was performed using cold forceps 2. Retroflexed views revealed internal hemorrhoid 3. Revealed external hemorrhoids. Our service has been consulted to evaluate patient's report of persistent reflux of undigested food with epigastric abdominal pain. Plan -Diabetic diet as tolerated -Bowel regimen -Analgesics and antiemetic as per attending -Continue PPI -Continue Reglan -May require upper repeat upper endoscopy -Supportive care -Further recommendations to follow This patient has been seen by myself and Dr. Appiah and this note is written on his behalf - Attending Attestation Dr. Appiah <Yuliana Christine - Last Filed: 04/25/18 14:04> (1) Abdominal pain Status: Acute Code(s): R10.9 - Unspecified abdominal pain (2) Gastroparesis Status: Acute Code(s): K31.84 - Gastroparesis (3) Nausea Status: Acute Code(s): R11.0 - Nausea - Attending Attestation Patient was seen and examined, agree with above note, patient has history of gastric bypass with a small pouch, patient has significant number of hospital admissions for the same problem when she comes because she is not able to eat and she feels bloated and belching, I explained to her that she only have small pouch and that she can not overheated the size of the pouch so she need to be eating small meals and she should not be eating at least 4-5 hours before bedtime patient understand that, she will try to do that change in her diet, I do not think repeating an EGD is going to reveal anything since she just had one less than 3 weeks ago by of a car patient understand that and agree with it, from GI perspective is she able to tolerate small meals then she can be discharged home <Barbara Appiah - Last Filed: 04/25/18 18:06>
[2018-04-25] MEDS ORDERED: Fluconazole 100 MG Tablet PO ONE (15:00)
--- NOTE | 2018-04-25 15:52 | P.CONPAL ---
Consult Service: Palliative Care Requesting Physician: Johana Cochran Reason for Consult: a. To assist with evaluation and management of symptoms including: pain, itching b. To assist medical decision maker(s) with: better understanding of current medical conditions; weighing benefits/burdens of medical treatment options; making medical treatment decisions. Primary Care Provider: UNKNOWN History of Present Illness History of Present Illness: This 57 year old female presented to the ED on 04/22/18. She reported concerns for dehydration, as well as nausea, chronic diarrhea. She has known history of renal transplant June 2017. She also reports some epigastric pain,. She discussed with her transplant surgeon who advised her to present to the ED. * In the ED she was started on IV fluids, Zofran. Noted with hyponatremia sodium 131, renal insufficiency BUN 29/creatinine 1.66. GFR 32. WBC 17.6. Hemoglobin 9.7/hematocrit 30.6. UA suggestive of infection, started on Fortaz. ED physician discussed with transplant surgeon. Patient planned for admission with a CT of the abdomen pelvis ordered. * CT abdomen pelvis: No acute findings. Overall appearance CT scan stable compared to 04/04/18 exam * Transplant surgeon who followed patient last admission consulted., Dr. Kelli Patel . She was also noted to have some c/o chest pain, dyspnea. Possible pain r/t gastric distention. ID consulted. Started on Meropenem per ID. Cultures pending. CT with some stomach and rectosigmoid distension. Ordered for Dulcolax suppository, planned for placement central line. * Still c/o pain, using PRN dilaudid 2mg Q 4 hr, reported that she requested 4mg plus benedryl every 2 hours . Pain management was deferred to transplant MD by hospitalist. Benadryl was maintained available PRN, PO. KUB unremarkable. * Patient with thrombocytosis, possibly reactive per prior workup by heme oncology during last admission. She has been on antegrade light in the past taking this on her own last week, this any further and is requesting alternatives. Heme oncology again consulted. 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 An underlying bone marrow-based problem such as essential thrombocytosis and other myeloproliferative disorders are not ruled out at this time. Recommends needs to continue on Lovenox, because of the fact that she could have an underlying hypercoagulable state, and/or a myeloproliferative disorder that could cause her to have PEs, despite the IVC filter. chronic thrombocytosis appears to be secondary to the splenectomy, but underlying myeloproliferative disorder including essential thrombocytosis is not ruled out. she reports bone marrow bx 5 years ago, and we do not have the results of, but she was told that she does not have an essential thrombocytosis. She also claims that JAK2 test was performed, and that was negative. At this point, I recommend continuing her Lovenox anticoagulation, and will repeat her JAK2 mutation testing, as well as check other mutations for myeloproliferative disorders including BCR-ABL by FISH , MPL mutation, and calreticulin mutation. If these tests are negative, she will have to have a repeat bone marrow biopsy for evaluation of an underlying myeloproliferative disorder. does not want to go back on the anagrelide, but if the platelet count keeps climbing beyond a million, we will consider hydroxyurea as an alternative * nephrology consulted: pt w CKD, creatinine improving w IVF. Possible prerenal vs acute tubular necrosis. May need to reduce prograf dose. * She is having severe HAs, migraines. MRV Head without contrast =FINDINGS: There is excellent visualization of the major intracranial arteries out to the second-order branch vessels. There is no evidence for aneurysm, vessel truncation or stenosis, and no evidence for vascular malformation. CONCLUSION: 1. Negative MRV Brain non contrast. She is requesting additional dilaudid to help the pain. Neurology consulted for HAs. * Neurology: MR venogram, MRI, MRA ordered. We will try on Decadron, as well as Elavil. This may be a migraine variant. Prograf can cause headaches in about 44% of patients however it would probably be more chronic. MRA pit river of [place] negative. MRI unremarkable. * Dietitian consulted: Known to dietitian from previous admission patient at nutritional risk related to underlying diagnoses and medical history with malabsorption. Previously on TPN. P.o. intake here 50-75%. Recommended for Glucerna shakes. Review gastroparesis diet. Education as needed. * 04/25 neurology continues to follow notes MRI, MRA, M RVP negative. ESR 66 but this could be secondary to UTI. Patient refusing Elavil. Patient reporting much better, neurology signed off. Transplant surgery recommends consider GI, palliative care consultation to assist with pain needs. * Palliative care, GI consulted. ID following; possibly sepsis however patient improving. Urine culture negative. Not clear why UC negative history of ESBL positive organisms. Changed meropenem to Invanz. Complete Invanz times 14 days then repeat UA to reevaluate pyuria. Started on Diflucan for vaginitis. * GI: Patient with last colonoscopy 04/05. EGD also done 04/05. Recommends continue diabetic diet as tolerated, bowel regimen, anti-emetics, analgesic continue PPI, Reglan, may require repeat upper endoscopy. Patient seen in room no visitors present. She is alert, oriented and appropriate. She does remember me from prior interactions admission. Exploration of current admission and current treatment course. Exploration of symptoms bothering her most at this point. She indicates that she is having very bothersome itching and that the oral Benadryl is not providing any relief. She also indicates that she is having severe belching and wonders if she can try something to help the belching feel better. Explore with her mechanics and physiology of that the belching will likely be an ongoing sequelae of her multiple surgeries and that she will always have to eat small amounts and will always be prone to gastric disruption, gas, delayed and slow emptying except etc. Exploration of her pain syndromes that she indicates she has had epigastric pain which worsens with the belching, as well as right flank pain. She indicates some discussion transplant specialist that she may be having some reflux into her kidney which could be causing some of the discomfort and UTI- like feelings that she was experiencing. She indicates pain generally 6/10 , the "edge is off " a tiny bit after use of IV Dilaudid. She indicates the pain does not change at all after oral Dilaudid. She endorses at home she does not use chronic opiates, she has not used them, has only used PRNs during hospitalizations. She says in between hospitalizations "she just deals with always being in pain". She has been in /out of hospital, very little time at home since Jun 2017. She also endorses ongoing itching second would which oral Benadryl is not providing relief of. She indicates IV Benadryl is much more effective because she does not absorb things well orally. We did discuss possibility of adding IM Vistaril for better relief of itching, with this. Explore recent appetite and intake she indicates decreased intake due to above- noted GI symptoms. She does not wish to do TPN again. Exploration of depression, emotional pain, her support network. She indicates her ex- is her primary social support, and that he is not very understanding and just wants her to deal with it. He indicates he does not deal well with medical issues. Gentle exploration of possibility of antidepressant as adjunct, she is very adamant that she would not pharmacological aids for mood, that she would prefer to just "deal with her feelings ". She further expresses that she has every reason to be sad and depressed about her health and that she does not need a medication to mask that. She further explores at some point she might proceed with total visceral transplantation however she is not ready for that. She indicates that she just wants to live her life, regain quality of life, and not suffer every day. Explore with her that given her complex medical and surgical history she will likely continue to experience medical problems and hospitalizations, which will likely limit function/quality of life. Further explore that if at some point she did not desire further invasive hospital-based measures she may be appropriate for hospice and comfort focus treatments at end-of-life. She indicates that she understands what that is but she is not at that point yet either. Discussed at length with primary nurse, medical attending. Of note she has complex surgical/ medical history : Renal transplant function reported at 48% at last check was stable biopsy 1 month after transplant. she reports the remaining kidneys were removed. Last f/ up w surgeon 03/24/18. She has chronic abdominal pain, as well as chronic nausea and vomiting. 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 Additionally she has history of GERD, dumping syndrome, gastroparesis, on chronic TPN. 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 She allegedly has 260 cm of small bowel with no colon She has a history of gastroparesis related to adhesions and stenoses in the bowel, she takes TPN for this. Last admission here she was weaned off TPN, 04/06/18. Was seen at [facility] since transplantation for consideration for multivisceral transplant. --Gastroparesis --2010 Pancreatectomy, islet cell transplant --Reza-en-Y duodenal jejunostomy, hepaticojejunostomy, pancreaticojejunostomy, splenectomy --2011 exp lap, RHIANNA, closure of enterotomy in the pancreaticobiliary limb, and terminal ileal through distal sigmoid resection --Adult polycystic liver and kidney disease --Chronic abdominal pain --2013 extensive RHIANNA, L decortication, and nephrectomy --2016 placement of LUE AVG --June 2017 Unrelated donor renal transplant and left nephrectomy --August 2017 exp lap, RHIANNA, revision of ileocolic anastomosis --September 2017 dev hydro transplant kidney, septic shock, E coli ESBL , and had DVT L femoral vein --December 2017 exp lap RHIANNA, and more surgery to bowels Function/Cognitive Trajectory: lives at home independent w ADLs, no cognitive deficits reported. Review of Systems Constitutional: Reports anorexia, Reports body ache(s), Reports chills, Reports fatigue, Reports headache(s) (improved yesterday), Denies fever(s) Ears, Nose, Mouth, and Throat: Denies difficulty swallowing, Denies dizziness, Denies pain with swallowing, Denies sinus pressure, Denies sore throat Cardiovascular: Reports leg swelling, Denies chest pain, Denies shortness of breath Respiratory: Denies chest congestion, Denies cough, Denies shortness of breath Gastrointestinal: Reports belching, Reports bloating, Reports feeling full early , Reports heartburn, Reports nausea (chronic, intermittent), Denies change in bowel habits, Denies difficulty swallowing Musculoskeletal: Denies back pain, Denies joint pain Skin/Breast: Reports itching, Denies lesions Neurologic: Denies confusion Psychiatric: Denies anxiety, Denies depression PMFSH - History History Provided By: Patient - Medical History Medical History: Medical History (Last Updated 04/25/18 @ 17:31 by Brenda Awan TEST MAN) Gastroparesis History of ESBL E. coli infection Diabetes Dumping syndrome Fracture, femur GERD (gastroesophageal reflux disease) Gastroparesis History of hysterectomy Kidney failure Liver function failure - Surgical History Surgical History: Surgical History (Last Updated 10/29/18 @ 17:31 by AMRIK Meier) H/O splenectomy (Acute) History of intestinal surgery (Acute) History of colectomy History of oophorectomy History of pancreatectomy Kidney transplant recipient Surgical procedure on lower extremity within past 6 months - Family History Family History: Family History (Last Reviewed 04/25/18 @ 17:30 by AMRIK Meier) Other No family history of cardiac disease - Tobacco History Second Hand Smoke Exposure: No Tobacco Use In Past 30 Days: No Smoking Status: Never smoker Tobacco Type: Cigarettes Smoking End Date: 2008 (smoke / PPD off and on for 10 years before quitting in 2008) - Alcohol History How Often Do You Have a Drink Containing Alcohol: Never - Substance Use History Substance History: No History of Abuse - Travel History History of Recent Travel: Yes (was in [place] then [place]) Recent Travel in the [facility] Within the Last 8 Weeks: No Recent Travel Out of the Country Within the Last 8 Weeks: No - Immunization History Tetanus Immunization: <5 Years Hx Influenza Vaccine This Season: Yes Medications and Allergies Active Medications: Active Medications Acetaminophen (Tylenol) 650 mg PO Q4H PRN PRN Reason: Headache, fever, pain 1-4 Last Admin: 04/24/18 12:37 Dose: 650 mg Al Hydroxide/Mg Hydroxide (Milk Of Magnesia Liq) 30 ml PO Q12H PRN PRN Reason: Mild Constipation Atorvastatin Calcium (Lipitor) 20 mg PO DAILY [facility] Last Admin: 04/25/18 09:36 Dose: 20 mg Bisacodyl (Dulcolax Supp) 10 mg RECTAL DAILY PRN PRN Reason: SEVERE CONSITIPATION Carvedilol (Coreg) 12.5 mg PO BID [facility] Last Admin: 04/25/18 09:36 Dose: 12.5 mg Dextrose (D50w Vial) 50 ml IV.PUSH UNSCH PRN PRN Reason: PER HYPOGLYCEMIA PROTOCOL Diphenhydramine HCl (Benadryl Inj) 25 mg IV.PUSH Q6H PRN PRN Reason: ITCHING Diphenhydramine HCl (Benadryl) 25 mg PO Q6H PRN PRN Reason: itching or headache Last Admin: 04/25/18 14:44 Dose: 25 mg Enoxaparin Sodium (Lovenox Inj) 40 mg SQ Q24H [facility] Last Admin: 04/24/18 17:04 Dose: 40 mg Fluconazole (Diflucan) 150 mg PO ONCE ONE Stop: 04/25/18 15:01 Last Admin: 04/25/18 14:43 Dose: 150 mg Glucagon (Glucagon Inj) 1 mg OTHER PRN PRN PRN Reason: for Hypoglycemia Protocol Heparin Sodium (Porcine) (Heparin Central Flush) 0 unit IV.FLUSH DAILY [facility] Last Admin: 04/25/18 09:37 Dose: 250 unit Heparin Sodium (Porcine) (Heparin Central Flush) 0 unit IV.FLUSH PRN PRN PRN Reason: Flush each lumen Hydromorphone HCl (Dilaudid Pf Inj) 2 mg IV.PUSH Q4H PRN PRN Reason: Pain 7-10 if NPO Last Admin: 04/25/18 14:45 Dose: 2 mg Hydromorphone HCl (Dilaudid) 2 mg PO Q3H PRN PRN Reason: PAIN SCALE 1 TO 5 Last Admin: 04/23/18 11:44 Dose: 2 mg Hydromorphone HCl (Dilaudid) 4 mg PO Q6H PRN PRN Reason: PAIN SCALE 6 TO 10 Last Admin: 04/24/18 12:48 Dose: 4 mg Sodium Chloride (Ns Inj) 1,000 mls @ 100 mls/hr IV.CONT .Q10H [facility] Last Admin: 04/25/18 10:35 Dose: 100 mls/hr Ertapenem 1,000 mg/ Sodium (Chloride) 100 mls @ 200 mls/hr IV.SIG Q24H [facility] Last Admin: 04/25/18 14:43 Dose: 200 mls/hr Insulin Aspart (Novolog Insulin Correctional Sugar Inj) 0 unit SQ ACHS [facility]; Protocol Last Admin: 04/25/18 11:31 Dose: 9 unit Insulin Detemir (Levemir Inj) 10 unit SQ BID [facility] Lactulose (Lactulose Liq) 30 ml PO DAILY PRN PRN Reason: SEVERE CONSITIPATION Metoclopramide HCl (Reglan) 5 mg PO ACHS [facility] Last Admin: 04/25/18 11:31 Dose: 5 mg Miscellaneous Medication (Asp Crit: Doc Esbl, Mdr A Baumannii Or P Aer) 1 each OTHER UNSCH PRN PRN Reason: PHARMACY DOCUMENTATION Stop: 04/26/18 14:16 Ondansetron HCl (Zofran Inj) 4 mg IV.PUSH Q6H PRN PRN Reason: NAUSEA OR VOMITING Last Admin: 04/25/18 01:25 Dose: 4 mg Pantoprazole Sodium (Protonix) 40 mg PO BID [facility] Last Admin: 04/25/18 09:35 Dose: 40 mg Prednisone (Deltasone) 10 mg PO DAILY [facility] Last Admin: 04/25/18 09:35 Dose: 10 mg Prochlorperazine Edisylate (Compazine Inj) 5 mg IV.PUSH Q6H PRN PRN Reason: HEADACHE Last Admin: 04/25/18 14:45 Dose: 5 mg Sennosides (Senokot) 17.2 mg PO Q12H PRN PRN Reason: Moderate Constipation Sodium Chloride (Ns Flush) 0 ml IV.FLUSH PRN PRN PRN Reason: FLUSH AFTER USING IV ACCESS Sodium Chloride (Ns Flush) 0 ml IV.FLUSH DAILY [facility] Last Admin: 04/25/18 09:37 Dose: 10 ml Tacrolimus (Prograf) 4 mg PO Q12HR [facility] Last Admin: 04/25/18 09:36 Dose: 4 mg Allergies Allergy/AdvReac Type Severity Reaction Status Date / Time metronidazole [From Flagyl] Allergy Mild Swelling Verified 04/22/18 16:51 of the Eye oxycodone Allergy Mild Itching, Verified 04/22/18 16:52 Generalized oxytetracycline Allergy Mild Hives Verified 03/27/18 18:27 [From Terramycin] fentanyl Allergy Edema Verified 04/05/18 17:07 [email or web address] [From Neupogen] Allergy Anaphylaxis Verified 04/05/18 10:48 Home Medications Medication Instructions Recorded Confirmed Type Phenergan 25 mg PO Q6-8H PRN 03/27/18 04/22/18 History acetaminophen 650 mg PO Q4H PRN 03/27/18 04/22/18 History atorvastatin 20 mg PO DAILY 03/27/18 04/22/18 History carvedilol 12.5 mg PO BID 03/27/18 04/22/18 History diphenoxylate-atropine [Lomotil] 1 tab PO TID 03/27/18 04/22/18 History enoxaparin 40 mg SUBCUT BID 03/27/18 04/22/18 History ergocalciferol (vitamin D2) 50,000 unit PO 3XW 03/27/18 04/22/18 History insulin glargine 12 unit SUBCUT QAM AND QHS 03/27/18 04/22/18 History insulin lispro 1 sliding scale dose SUBCUT UD 03/27/18 04/22/18 History [id number] [Creon] 1 cap PO TIDAC 03/27/18 04/22/18 History ondansetron 4 mg PO Q8H PRN 03/27/18 04/22/18 History prednisone 10 mg PO DAILY 03/27/18 04/22/18 History prochlorperazine maleate 10 mg PO Q6-8H PRN 03/27/18 04/22/18 History [Compazine] tacrolimus [Prograf] 4 mg PO Q12H 03/27/18 04/22/18 History dexlansoprazole [Dexilant] 60 mg PO DAILY 04/24/18 04/24/18 History metoclopramide HCl [Reglan] 5 mg PO TID 04/24/18 04/24/18 History Advance Directives Living Will: Yes Power of Orchestra Director Name: deng lane Power of Orchestra Director Phone Number: [phone] Power of Orchestra Director Relationship to Patient: Family Today's verbally stated goals: Patient endorses wanting better quality of life, better pain control and better health in general Ethical and Legal Issues: Patient currently capacitated and able to make her own decisions. She indicates that her son is designated as healthcare surrogate. She indicates that her ex- whom is local would be who she would call locally for assistance as needed. Physical Exam Vital Signs: Vital Signs - 24 hr 04/24/18 15:00 04/24/18 16:00 04/24/18 17:00 Temperature 98.4 F 98.4 F Pulse Rate 73 73 87 Respiratory Rate 16 16 Blood Pressure 116/74 116/74 Pulse Oximetry 97 97 04/24/18 18:00 04/24/18 19:00 04/24/18 20:00 Temperature Pulse Rate 80 78 76 Respiratory Rate 16 Blood Pressure Pulse Oximetry 04/24/18 20:42 04/24/18 21:00 04/24/18 22:00 Temperature 98.7 F Pulse Rate 77 78 74 Respiratory Rate 16 Blood Pressure 138/70 Pulse Oximetry 97 04/24/18 22:04/24/18 23:00 10/29/18 00:00 Temperature 98.6 F Pulse Rate 76 74 Respiratory Rate 16 16 Blood Pressure 112/58 L Pulse Oximetry 97 04/25/18 01:00 04/25/18 02:00 04/25/18 03:00 Temperature Pulse Rate 74 80 76 Respiratory Rate Blood Pressure Pulse Oximetry 04/25/18 04:00 04/25/18 05:00 04/25/18 06:00 Temperature 98.6 F Pulse Rate 78 78 80 Respiratory Rate 16 Blood Pressure 108/55 L Pulse Oximetry 97 04/25/18 07:00 04/25/18 08:00 04/25/18 09:00 Temperature 98.6 F Pulse Rate 81 81 84 Respiratory Rate 16 Blood Pressure 109/61 Pulse Oximetry 97 04/25/18 10:00 04/25/18 11:00 04/25/18 11:56 Temperature 98.2 F Pulse Rate 84 89 81 Respiratory Rate 16 Blood Pressure 107/61 Pulse Oximetry 96 04/25/18 11:58 04/25/18 13:00 04/25/18 14:00 Temperature Pulse Rate 86 77 75 Respiratory Rate Blood Pressure Pulse Oximetry I&O: Intake & Output 04/23/18 04/24/18 04/25/18 04/26/18 06:59 06:59 06:59 06:59 Intake Total 3100 / 3100 4880 / 4880 4740 / 4740 1100 / 1100 Output Total 1200 / 1200 2400 / 2400 1600 / 1600 Balance 1900 / 1900 2480 / 2480 3140 / 3140 1100 / 1100 Weight 61.5 kg 57.4 kg 57.6 kg Physical Exam: CONSTITUTIONAL/GENERAL: This is a pail, chronically ill-appearing female TUBES/LINES/DRAINS: Subclavian IV access rt chest. SKIN: No jaundice, rashes, or lesions. pale. No wounds seen anteriorly. skin warm/dry HEAD: Atraumatic. Normocephalic. EYES: Pupils equal and round and reactive. Extraocular motions intact. No scleral icterus. No injection or drainage. Fundi not examined. ENT: Hearing grossly normal. Nose without bleeding or purulent drainage. Throat without visible erythema, exudates, masses, or lesions. NECK: Trachea midline. Supple, nontender. No palpable thyroid enlargement or nodularity. CARDIOVASCULAR: Regular rate and rhythm . No JVD. Peripheral pulses symmetric. 1 + edema bilateral lower legs,feet. 1+ edema hands/lower arms. RESPIRATORY/CHEST: Symmetric, unlabored respirations. On room air. Clear to auscultation. Breath sounds equal bilaterally. GASTROINTESTINAL: Abdomen soft, mildly tender, nondistended. No palpable masses. No guarding. Bowel sounds hyperactive. +belches frequently GENITOURINARY: Without palpable bladder distension. MUSCULOSKELETAL: Extremities without clubbing, cyanosis. No joint tenderness or effusion noted. No calf tenderness. No mottling or clubbing.1+ edema bilateral lower legs,feet. 1+ edema hands/lower arms. NEUROLOGICAL: Awake and alert. Oriented x3. Motor and sensory grossly within normal limits. Follows commands. Cognitively sharp. Moves all 4 extremities. PSYCHIATRIC: No obvious anxiety/depression. no apparent hallucinations or other psychotic thought process. Diagnostic Tests Laboratory: Laboratory Results - last 72 hr 04/22/18 04/22/18 04/22/18 10:05 16:44 22:25 WBC RBC Hgb Hct MCV MCH MCHC RDW Plt Count MPV Neut % (Auto) Lymph % (Auto) Powell % (Auto) Eos % (Auto) Baso % (Auto) Neut # (Auto) Lymph # (Auto) Powell # (Auto) Eos # (Auto) Baso # (Auto) WBC Differential Differential Comment ESR APTT Sodium Potassium Chloride Carbon Dioxide Anion Gap BUN Creatinine Estimated GFR POC Glucose 222 H 212 H Random Glucose Calcium Phosphorus Magnesium Vitamin B12 Tacrolimus 9.7 04/23/18 04/23/18 04/23/18 03:45 05:35 08:06 WBC RBC Hgb Hct MCV MCH MCHC RDW Plt Count MPV Neut % (Auto) Lymph % (Auto) Powell % (Auto) Eos % (Auto) Baso % (Auto) Neut # (Auto) Lymph # (Auto) Powell # (Auto) Eos # (Auto) Baso # (Auto) WBC Differential Differential Comment ESR APTT Sodium 134 L Potassium 4.6 Chloride 105 Carbon Dioxide 21.1 Anion Gap 8 BUN 18 Creatinine 1.15 H Estimated GFR 49 L POC Glucose 162 H 64 L Random Glucose 104 D Calcium 9.1 D Phosphorus Magnesium Vitamin B12 Tacrolimus 04/23/18 04/23/18 04/23/18 08:21 08:21 08:21 WBC 11.7 H RBC 3.31 L Hgb 9.3 L Hct 28.9 L MCV 87.2 MCH 28.1 MCHC 32.3 RDW 16.8 Plt Count 770 H MPV 9.0 Neut % (Auto) 67.7 Lymph % (Auto) 16.8 Powell % (Auto) 12.2 H Eos % (Auto) 1.9 Baso % (Auto) 1.4 Neut # (Auto) 7.9 H Lymph # (Auto) 2.0 Powell # (Auto) 1.4 H Eos # (Auto) 0.2 Baso # (Auto) 0.2 WBC Differential . Differential Comment Auto diff final ESR APTT Sodium Potassium Chloride Carbon Dioxide Anion Gap BUN Creatinine Estimated GFR POC Glucose Random Glucose Calcium Phosphorus 2.5 Magnesium 1.6 Vitamin B12 Tacrolimus 10.8 04/23/18 04/23/18 04/23/18 11:27 15:56 18:27 WBC RBC Hgb Hct MCV MCH MCHC RDW Plt Count MPV Neut % (Auto) Lymph % (Auto) Powell % (Auto) Eos % (Auto) Baso % (Auto) Neut # (Auto) Lymph # (Auto) Powell # (Auto) Eos # (Auto) Baso # (Auto) WBC Differential Differential Comment ESR APTT 29.4 Sodium Potassium Chloride Carbon Dioxide Anion Gap BUN Creatinine Estimated GFR POC Glucose 196 H 230 H Random Glucose Calcium Phosphorus Magnesium Vitamin B12 Tacrolimus 04/23/18 04/24/18 04/24/18 21:52 07:59 09:55 WBC RBC Hgb Hct MCV MCH MCHC RDW Plt Count MPV Neut % (Auto) Lymph % (Auto) Powell % (Auto) Eos % (Auto) Baso % (Auto) Neut # (Auto) Lymph # (Auto) Powell # (Auto) Eos # (Auto) Baso # (Auto) WBC Differential Differential Comment ESR APTT Sodium Potassium Chloride Carbon Dioxide Anion Gap BUN Creatinine Estimated GFR POC Glucose 189 H 267 H Random Glucose Calcium Phosphorus Cancelled Magnesium Vitamin B12 Tacrolimus 04/24/18 04/24/18 04/24/18 09:55 09:55 09:55 WBC 8.6 RBC 2.98 L Hgb 8.2 L Hct 26.2 L MCV 87.9 MCH 27.6 MCHC 31.4 L RDW 17.0 Plt Count 862 H MPV 9.1 Neut % (Auto) 80.3 H Lymph % (Auto) 3.3 L Powell % (Auto) 12.3 H Eos % (Auto) 3.6 Baso % (Auto) 0.5 Neut # (Auto) 6.9 Lymph # (Auto) 0.3 L [place] # (Auto) 1.1 H Eos # (Auto) 0.3 Baso # (Auto) 0.0 WBC Differential . Differential Comment Auto diff final ESR APTT Sodium Potassium Chloride Carbon Dioxide Anion Gap BUN Creatinine Estimated GFR POC Glucose Random Glucose Calcium Phosphorus Magnesium Cancelled Vitamin B12 Tacrolimus 8.8 04/24/18 04/24/18 04/24/18 09:55 09:55 09:55 WBC RBC Hgb Hct MCV MCH MCHC RDW Plt Count MPV Neut % (Auto) Lymph % (Auto) [place] % (Auto) Eos % (Auto) Baso % (Auto) Neut # (Auto) Lymph # (Auto) [place] # (Auto) Eos # (Auto) Baso # (Auto) WBC Differential Differential Comment ESR 66 H APTT Sodium 135 L Potassium 4.9 Chloride 106 Carbon Dioxide 23.5 Anion Gap 6 BUN 12 Creatinine 1.01 H Estimated GFR 56 L POC Glucose Random Glucose 243 H D Calcium 8.9 Phosphorus 2.6 Magnesium 1.5 Vitamin B12 318 Tacrolimus 04/24/18 04/24/18 04/24/18 11:06 15:07 21:39 WBC RBC Hgb Hct MCV MCH MCHC RDW Plt Count MPV Neut % (Auto) Lymph % (Auto) [place] % (Auto) Eos % (Auto) Baso % (Auto) Neut # (Auto) Lymph # (Auto) [place] # (Auto) Eos # (Auto) Baso # (Auto) WBC Differential Differential Comment ESR APTT Sodium Potassium Chloride Carbon Dioxide Anion Gap BUN Creatinine Estimated GFR POC Glucose 246 H 172 H 459 H* Random Glucose Calcium Phosphorus Magnesium Vitamin B12 Tacrolimus 04/25/18 04/25/18 04/25/18 08:06 08:20 08:20 WBC 6.7 RBC 3.01 L Hgb 8.5 L Hct 26.7 L MCV 88.7 MCH 28.4 MCHC 32.0 RDW 17.3 H Plt Count 949 H MPV 8.9 Neut % (Auto) 73.5 H Lymph % (Auto) 12.4 [place] % (Auto) 13.1 H Eos % (Auto) 0.4 Baso % (Auto) 0.6 Neut # (Auto) 4.9 Lymph # (Auto) 0.8 L [place] # (Auto) 0.9 Eos # (Auto) 0.0 Baso # (Auto) 0.0 WBC Differential . Differential Comment Auto diff final ESR APTT Sodium 133 L Potassium 5.7 H D Chloride 102 Carbon Dioxide 22.5 Anion Gap 9 BUN 18 Creatinine 1.36 H Estimated GFR 40 L POC Glucose 433 H Random Glucose 428 H D Calcium 9.2 Phosphorus 2.8 Magnesium 1.8 Vitamin B12 Tacrolimus 04/25/18 04/25/18 04/25/18 08:20 11:19 11:20 WBC RBC Hgb Hct MCV MCH MCHC RDW Plt Count MPV Neut % (Auto) Lymph % (Auto) [place] % (Auto) Eos % (Auto) Baso % (Auto) Neut # (Auto) Lymph # (Auto) [place] # (Auto) Eos # (Auto) Baso # (Auto) WBC Differential Differential Comment ESR APTT Sodium 131 L Potassium 5.3 H Chloride 101 Carbon Dioxide 24.8 Anion Gap 5 BUN 18 Creatinine 1.47 H Estimated GFR 37 L POC Glucose 423 H Random Glucose 417 H Calcium 8.8 Phosphorus Magnesium Vitamin B12 Tacrolimus 13.4 Result Diagrams: 04/25/18 08:20 04/25/18 11:20 Microbiology: Microbiology 04/23/18 00:43 Aerobic Blood Culture - Preliminary Blood - Peripheral No growth in 2 days Anaerobic Blood Culture - Preliminary No growth in 2 days 04/23/18 00:35 Aerobic Blood Culture - Preliminary Blood - Peripheral No growth in 2 days Anaerobic Blood Culture - Preliminary No growth in 2 days 04/22/18 09:50 Urine Culture - Final Clean Catch Urine No growth in 48 hours Imaging: Abdomen X-Ray 04/22/18 00:00 CONCLUSION: Negative examination. Abdomen/Pelvis CT 04/22/18 00:00 CONCLUSION: 1. No acute findings. The overall appearance of CT scan is stable compared to 04/04/2018 with multiple findings as described above. Head/Brain Mag Res Venography 04/24/18 00:00 CONCLUSION: 1. Negative MRV Brain non contrast. Ward Line Insertion 04/24/18 00:00 CONCLUSION: Uncomplicated ultrasound and fluoroscopic guided Ward catheter placement as above. Head MRI 04/24/18 14:21 CONCLUSION: 1. Unremarkable MRI of the brain. Head MRA 04/24/18 14:21 CONCLUSION: 1. Negative MRA [place] ([place] [facility] [place]) non contrast. Patient/Family Conference Family Conference Time: 45 Family Conference Location: Bedside Issues Discussed: met w pt approx 45 min at bedside. Discussion included the following: * Palliative care role, purpose, approach * Additional medical, psychosocial, and spiritual history * Patients general health, functional status, and cognitive changes in the months leading up to the current hospitalization * Patient understanding of the current medical problems, prognosis * Patients goals of care as best understood from advance directives and/or conversations and/or values * Current medical treatment options and benefits/burdens of those options * Comparison of ongoing aggressive care vs transition to comfort measures only /hospice * Questions answered to the best of my ability * Palliative care contact information provided Exploration of current admission and current treatment course. Exploration of symptoms bothering her most at this point. She indicates that she is having very bothersome itching and that the oral Benadryl is not providing any relief. She also indicates that she is having severe belching and wonders if she can try something to help the belching feel better. Explore with her mechanics and physiology of that the belching will likely be an ongoing sequelae of her multiple surgeries and that she will always have to eat small amounts and will always be prone to gastric disruption, gas, delayed and slow emptying except etc. Exploration of her pain syndromes that she indicates she has had epigastric pain which worsens with the belching, as well as right flank pain. She indicates some discussion transplant specialist that she may be having some reflux into her kidney which could be causing some of the discomfort and UTI- like feelings that she was experiencing. She indicates pain generally 6/10 , the "edge is off " a tiny bit after use of IV Dilaudid. She indicates the pain does not change at all after oral Dilaudid. She endorses at home she does not use chronic opiates, she has not used them, has only used PRNs during hospitalizations. She says in between hospitalizations "she just deals with always being in pain". She has been in /out of hospital, very little time at home since Jun 2017. She also endorses ongoing itching second would which oral Benadryl is not providing relief of. She indicates IV Benadryl is much more effective because she does not absorb things well orally. We did discuss possibility of adding IM Vistaril for better relief of itching, with this. Explore recent appetite and intake she indicates decreased intake due to above- noted GI symptoms. She does not wish to do TPN again. Exploration of depression, emotional pain, her support network. She indicates her ex- is her primary social support, and that he is not very understanding and just wants her to deal with it. He indicates he does not deal well with medical issues. Gentle exploration of possibility of antidepressant as adjunct, she is very adamant that she would not pharmacological aids for mood, that she would prefer to just "deal with her feelings ". She further expresses that she has every reason to be sad and depressed about her health and that she does not need a medication to mask that. She further explores at some point she might proceed with total visceral transplantation however she is not ready for that. She indicates that she just wants to live her life, regain quality of life, and not suffer every day. Explore with her that given her complex medical and surgical history she will likely continue to experience medical problems and hospitalizations, which will likely limit function/quality of life. Further explore that if at some point she did not desire further invasive hospital-based measures she may be appropriate for hospice and comfort focus treatments at end-of-life. She indicates that she understands what that is but she is not at that point yet either. Assessment and Plan - Disease Oriented Problem List (1) Renal transplant recipient (2) Renal insufficiency (3) DM (diabetes mellitus) (4) Abdominal pain (5) Acute renal failure (6) Thrombocytopenia (7) Gastroparesis (8) Nausea (9) History of infection due to ESBL Escherichia coli (10) History of DVT (deep vein thrombosis) (11) Hx pulmonary embolism - Symptom Scale (1) Abdominal pain 0-10 Scale: 6 (2) Nausea 0-10 Scale: Unable to quantify (3) Itch of skin 0-10 Scale: Unable to quantify Pertinent Non-Medical Issues: Psychosocial: Originally from [place]. 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 though remains in close communication with her ex- who is supportive. Indicates that her son in [place] is designated as healthcare surrogate. Spiritual: Did not review today Legal:No legal issues. Patient currently alert, oriented and able to make her own decisions. She indicates that her son is designated as her healthcare surrogate. Ethical issues impacting care: No ethical/legal issues identified Important Contacts: Steven Bailey (Ex Spouse) [phone] Prognosis: This patient was admitted for dehydration, abdominal pain, possible UTI (though culture negative). She has complicated medical history having undergone many abdominal surgeries, and is status post kidney transplant June 2017. She has had ongoing issues with GI motility, short gut, TPN dependent -recently weaned off TPN on oral diet only. No infectious agents localized yet during this admission course. Continues to have ongoing abdominal pain, bowel issues. Given complicated medical history she does remain high risk for ongoing complications and potential clinical setbacks however at this time she is currently stable and she should be able to discharge home to her prior status. Code Status: Full Code Plan: * Legal decision maker: Patient alert, oriented and appropriate. Able to make her own decisions. She indicates her son in [place] is designated as her primary healthcare surrogate, however her ex- who is local she wishes to be first contacted as he is local. * Goals: goals aggressive. Pt wants better pain control, improved quality of life. Hopeful to return home once acute renal issues resolve. at some point she might consider total visceral transplant. * CODE STATUS: full code * SYMPTOMS: --pain- ongoing, acute on chronic. General day to day pain #4/10 to abdomen, tolerable. Previous admission reported does not use chronic opiates daily. In the past has been on morphine, dilaudid, fentanyl. All make her itch. Fentanyl she reports causes angioedema, tongue swelling. Tolerates itching by using Vistaril with any opiates. This admission she is requesting Benadryl. Per prior palliative interaction = she does not want to be on nursing home opiates. She reports morphine PO ineffective. She reports hx dilaudid PO effective. During Prev 03/2018 admission Dilaudid 2 mg was increased to 4, she was d/c home without need for opiate rx. Concern with oral dosing is not clear how much she is actually absorbing giving underlying GI issues. She has also been having headaches severe, during this admission which are now improved. She also had severe headache during my last evaluation with her earlier this month. At that time she did deny history of migraines however also indicated previous workup at [facility] and use of triptan's ineffective. Also previously c/o sinus headache 10/10 intermittent past few mos. relieved w PRN sudafed, reports no hx of migraine diagnosis. She requested PRN sudafed- note cautious use with renal impairment. has used a few doses, reported no change to HAMLIN. Headache eventually resolved. Recent imaging and workup per neurology negative. Headache now reported to be improved, [facility] database reviewed, most recent rx 06/09/17 for alprazolam 1mg, last opiate 12/22/17 hydromorphone 2mg tablet. She has frequently been seen out of state at other hospitals, just returned to [place] shortly before her recent admission in early March. Discussed at length w medical attending Dr Cochran. --Plan is to medically discharge patient in the next day or 2 if renal function continues to improve. Generally a day or so before that time we would transition to oral pain regimen as to not abruptly discontinue this before patient is discharged. Patient indicates does not use any daily opiates in the home setting so would likely not need to discharge with Rx. During my discussion about concerns about further up titrating IV or just discontinuing it and using oral asked me "what is the harm of allowing me to continue to receive it IV until I am discharged ". She further explains that she would rather use no pain medicine at all then use the oral Dilaudid because it just does not work. She says that outpatient she just lives with pain day today, and that while she is in the hospital she is hopeful that she would at least be a little more comfortable day today. She endorses that the IV Dilaudid helps take the edge off , but it does not eliminate the pain completely. Given near discharge and her inability or reluctance to utilize oral regimen I would not further uptitrate IV Dilaudid, we would not want her to be on increasingly high doses nearing time of discharge. Given her extensive history I suspect some of this is emotional pain however she is not amenable to antidepressant. --itching- c/o chronic itching associated with opiate use. Request IV Benadryl however I am notified that this is currently out of stock in hospital. She is amenable to trying Vistaril which was used during last admission and offered good relief of her itching. She does scratch frequently during my exam. Discussed with medical attending, will add IM Vistaril. --n/v -intermittent, chronic. Multiple complex ongoing GI issues, concern RE ileus, decreased motility. Has GUERRERON jose. * Palliative care will continue to follow during hospital course as condition evolves, to assist patient/decision-maker with understanding of medical conditions, weighing benefits/burdens of treatment options, for clarification of goals of treatment. Additionally will assist with any symptoms of palliative concern Appreciation Thank you for the opportunity to participate in the care of Moni Bailey. Attestation Attestation: To help prompt me to consider important information that might be impacting today's encounter and assessment, information from prior notes written by myself or my colleagues may have been "brought forward" into today's note. My signature on this note, however, is an attestation that I personally performed the exam, history, and/or decision-making noted today, and, unless otherwise indicated, the interactions with patient, family, and staff as well as the review of records all occurred today. I also attest that the listed assessment and stated plan reflect my best clinical judgment today based on the combination of historical information, prior notes, and today's exam/ interactions. When time spent is documented, it refers only to time spent today by the signer, or if indicated, combined time spent today by collaborating physician/nurse practitioner.
[2018-04-25] MEDS: Enoxaparin Inj 40 MG/0.4 ML Syringe SQ SCH (17:16)
[2018-04-25 19:17] LABS: Bilirubin,Urine Negative (Negative); Clarity,Urine Clear (Clear); Color,Urine Straw (Yellw/Straw); Glucose,Urine (UA) 500 or Greater mg/dL (Negative); Leukocyte Esterase,Urine Negative (Negative); Mucus,Urine Few /lpf (Occasional); Nitrite,Urine Negative (Negative); Specific Gravity,Urine 1.001 (1.002-1.035); Squamous Epithelial Cell,Urine <1 /hpf (0-5)
[2018-04-25] MEDS: Insulin Detemir Inj 1,000 UNIT/10 ML Vial SQ SCH (20:35)
--- NOTE | 2018-04-25 23:56 | P.PNONC ---
Subjective Interval history: Resting comfortably in bed in no distress. Objective Vital Signs/Intake & Output: Vital Signs 04/25/18 00:00 04/25/18 01:00 04/25/18 02:00 Temperature 98.6 F Pulse Rate 74 74 80 Respiratory Rate 16 Blood Pressure 112/58 L Pulse Oximetry 97 04/25/18 03:00 04/25/18 04:00 04/25/18 05:00 Temperature 98.6 F Pulse Rate 76 78 78 Respiratory Rate 16 Blood Pressure 108/55 L Pulse Oximetry 97 04/25/18 06:00 04/25/18 07:00 04/25/18 08:00 Temperature 98.6 F Pulse Rate 80 81 81 Respiratory Rate 16 Blood Pressure 109/61 Pulse Oximetry 97 04/25/18 09:00 04/25/18 10:00 04/25/18 11:00 Temperature Pulse Rate 84 84 89 Respiratory Rate Blood Pressure Pulse Oximetry 04/25/18 11:56 04/25/18 11:58 04/25/18 13:00 Temperature 98.2 F Pulse Rate 81 86 77 Respiratory Rate 16 Blood Pressure 107/61 Pulse Oximetry 96 04/25/18 14:00 04/25/18 15:00 04/25/18 15:51 Temperature Pulse Rate 75 75 72 Respiratory Rate Blood Pressure Pulse Oximetry 04/25/18 15:53 04/25/18 17:00 04/25/18 18:00 Temperature 98 F Pulse Rate 76 76 76 Respiratory Rate 14 Blood Pressure 120/67 Pulse Oximetry 96 04/25/18 19:00 04/25/18 20:00 04/25/18 21:00 Temperature 98.2 F Pulse Rate 76 70 72 Respiratory Rate 16 Blood Pressure 144/79 H Pulse Oximetry 97 04/25/18 22:00 04/25/18 23:00 Temperature 98.3 F Pulse Rate 72 72 Respiratory Rate 16 Blood Pressure 137/73 Pulse Oximetry 98 Intake & Output 04/25/18 04/25/18 04/26/18 06:59 18:59 06:59 Intake Total 2920 / 2920 2760 / 2760 1000 / 1000 Output Total 1000 / 1000 2350 / 2350 Balance 1920 / 1920 410 / 410 1000 / 1000 Weight 57.6 kg Intake: IV 2200 / 2200 1200 / 1200 1000 / 1000 NS Inj 1,000 ML @ 100 mls/hr IV 1999 / 1999 1000 / 1000 1000 / 1000 .CONT .Q10H [facility] Rx#:[id number] INVanz Inj 1,000 MG In NS Inj 100 / 100 100 ML @ 200 mls/hr IV.SIG Q24H [facility] Rx#:[id number] Magnesium Sulfate Inj 2 GM In 100 / 100 NS Inj 96 ML @ 50 mls/hr IV.SIG ONCE ONE Rx#:[id number] Merrem Inj 1,000 MG In NS Inj 100 / 100 100 / 100 100 ML @ 200 mls/hr IV.SIG Q12H [facility] Rx#:[id number] Oral 720 / 720 1560 / 1560 Output: Urine 1000 / 1000 2350 / 2350 Other: Date of Last Bowel Movement 04/25/18 04/25/18 # Bowel Movements 3 Result Diagrams: 04/25/18 08:20 04/25/18 11:20 Laboratory Results: Laboratory Results - last 24 hr 04/25/18 04/25/18 04/25/18 08:06 08:20 08:20 WBC 6.7 RBC 3.01 L Hgb 8.5 L Hct 26.7 L MCV 88.7 MCH 28.4 MCHC 32.0 RDW 17.3 H Plt Count 949 H MPV 8.9 Neut % (Auto) 73.5 H Lymph % (Auto) 12.4 [place] % (Auto) 13.1 H Eos % (Auto) 0.4 Baso % (Auto) 0.6 Neut # (Auto) 4.9 Lymph # (Auto) 0.8 L [place] # (Auto) 0.9 Eos # (Auto) 0.0 Baso # (Auto) 0.0 WBC Differential . Differential Comment Auto diff final Sodium 133 L Potassium 5.7 H D Chloride 102 Carbon Dioxide 22.5 Anion Gap 9 BUN 18 Creatinine 1.36 H Estimated GFR 40 L POC Glucose 433 H Random Glucose 428 H D Calcium 9.2 Phosphorus 2.8 Magnesium 1.8 Urine Color Urine Clarity Urine pH Ur Specific Organ Urine Protein Urine Glucose (UA) Urine Ketones Urine Occult Blood Urine Nitrate Urine Bilirubin Urine Urobilinogen Ur Leukocyte Esterase Urine RBC Urine WBC Ur Squamous Epith Cells Urine Mucus Ur Microscopic Review Tacrolimus 04/25/18 04/25/18 04/25/18 08:20 11:19 11:20 WBC RBC Hgb Hct MCV MCH MCHC RDW Plt Count MPV Neut % (Auto) Lymph % (Auto) [place] % (Auto) Eos % (Auto) Baso % (Auto) Neut # (Auto) Lymph # (Auto) [place] # (Auto) Eos # (Auto) Baso # (Auto) WBC Differential Differential Comment Sodium 131 L Potassium 5.3 H Chloride 101 Carbon Dioxide 24.8 Anion Gap 5 BUN 18 Creatinine 1.47 H Estimated GFR 37 L POC Glucose 423 H Random Glucose 417 H Calcium 8.8 Phosphorus Magnesium Urine Color Urine Clarity Urine pH Ur Specific Organ Urine Protein Urine Glucose (UA) Urine Ketones Urine Occult Blood Urine Nitrate Urine Bilirubin Urine Urobilinogen Ur Leukocyte Esterase Urine RBC Urine WBC Ur Squamous Epith Cells Urine Mucus Ur Microscopic Review Tacrolimus 13.4 04/25/18 04/25/18 04/25/18 15:21 16:45 19:25 WBC RBC Hgb Hct MCV MCH MCHC RDW Plt Count MPV Neut % (Auto) Lymph % (Auto) [place] % (Auto) Eos % (Auto) Baso % (Auto) Neut # (Auto) Lymph # (Auto) [place] # (Auto) Eos # (Auto) Baso # (Auto) WBC Differential Differential Comment Sodium Potassium Chloride Carbon Dioxide Anion Gap BUN Creatinine Estimated GFR POC Glucose 268 H 297 H 301 H Random Glucose Calcium Phosphorus Magnesium Urine Color Urine Clarity Urine pH Ur Specific Organ Urine Protein Urine Glucose (UA) Urine Ketones Urine Occult Blood Urine Nitrate Urine Bilirubin Urine Urobilinogen Ur Leukocyte Esterase Urine RBC Urine WBC Ur Squamous Epith Cells Urine Mucus Ur Microscopic Review Tacrolimus 04/25/18 Unknown WBC RBC Hgb Hct MCV MCH MCHC RDW Plt Count MPV Neut % (Auto) Lymph % (Auto) [place] % (Auto) Eos % (Auto) Baso % (Auto) Neut # (Auto) Lymph # (Auto) [place] # (Auto) Eos # (Auto) Baso # (Auto) WBC Differential Differential Comment Sodium Potassium Chloride Carbon Dioxide Anion Gap BUN Creatinine Estimated GFR POC Glucose Random Glucose Calcium Phosphorus Magnesium Urine Color Straw Urine Clarity Clear Urine pH 5.0 Ur Specific Organ 1.001 L Urine Protein Negative Urine Glucose (UA) 500 or greater Urine Ketones Negative Urine Occult Blood Negative Urine Nitrate Negative Urine Bilirubin Negative Urine Urobilinogen Less than 2 Ur Leukocyte Esterase Negative Urine RBC Less than 1 Urine WBC 1 Ur Squamous Epith Cells <1 Urine Mucus Few H Ur Microscopic Review Not Reportable Tacrolimus Culture Results: Microbiology 04/23/18 00:43 Aerobic Blood Culture - Preliminary Blood - Peripheral No growth in 2 days Anaerobic Blood Culture - Preliminary No growth in 2 days 04/23/18 00:35 Aerobic Blood Culture - Preliminary Blood - Peripheral No growth in 2 days Anaerobic Blood Culture - Preliminary No growth in 2 days 04/22/18 09:50 Urine Culture - Final Clean Catch Urine No growth in 48 hours Medications: Active Medications Generic Name Dose Route Start Last Admin Trade Name Freq PRN Reason Stop Dose Admin Acetaminophen 650 mg 04/22/18 11:20 04/24/18 12:37 Tylenol PO 650 mg Q4H PRN Administration Headache, fever, pain 1-4 Atorvastatin Calcium 20 mg 04/23/18 09:00 04/25/18 09:36 Lipitor PO 20 mg DAILY [facility] Administration Carvedilol 12.5 mg 04/22/18 21:00 04/25/18 20:37 Coreg PO 12.5 mg BID RONALD Administration Enoxaparin Sodium 40 mg 04/22/18 18:00 04/25/18 17:16 Lovenox Inj SQ 40 mg Q24H RONALD Administration Heparin Sodium (Porcine) 0 unit 04/25/18 09:00 04/25/18 09:37 Heparin Central Flush IV.FLUSH 250 unit DAILY [facility] Administration Hydromorphone HCl 2 mg 04/22/18 12:11 04/25/18 21:31 Dilaudid Pf Inj IV.PUSH 2 mg Q4H PRN Administration Pain 7-10 if NPO Hydromorphone HCl 2 mg 04/23/18 08:57 04/23/18 11:44 Dilaudid PO 2 mg Q3H PRN Administration PAIN SCALE 1 TO 5 Hydromorphone HCl 4 mg 04/23/18 08:58 04/25/18 20:36 Dilaudid PO 4 mg Q6H PRN Administration PAIN SCALE 6 TO 10 Hydroxyzine HCl 25 mg 04/25/18 17:15 04/25/18 17:57 Vistaril Inj IM 25 mg Q8H PRN Administration ITCHING Sodium Chloride 1,000 mls @ 100 mls/hr 04/22/18 11:30 04/25/18 20:35 Ns Inj IV.CONT 100 mls/hr .Q10H RONALD Administration Ertapenem 1,000 mg/ Sodium 100 mls @ 200 mls/hr 04/25/18 15:00 04/25/18 15:15 Chloride IV.SIG Infused Q24H RONALD Infusion Insulin Aspart 0 unit 04/22/18 21:00 04/25/18 20:34 Novolog Insulin Correctional Sugar Inj SQ 7 unit ACHS RONALD Administration Protocol Insulin Detemir 10 unit 04/25/18 21:00 04/25/18 20:35 Levemir Inj SQ 10 unit BID RONALD Administration Metoclopramide HCl 5 mg 04/25/18 12:00 04/25/18 20:36 Reglan PO 5 mg ACHS RONALD Administration Ondansetron HCl 4 mg 04/22/18 11:20 04/25/18 01:25 Zofran Inj IV.PUSH 4 mg Q6H PRN Administration NAUSEA OR VOMITING Pantoprazole Sodium 40 mg 04/23/18 09:00 04/25/18 20:36 Protonix PO 40 mg BID RONALD Administration Prednisone 10 mg 04/24/18 12:00 04/25/18 09:35 Deltasone PO 10 mg DAILY RONALD Administration Prochlorperazine Edisylate 5 mg 04/24/18 19:26 04/25/18 22:55 Compazine Inj IV.PUSH 5 mg Q6H PRN Administration HEADACHE Sodium Chloride 0 ml 04/25/18 09:00 04/25/18 09:37 Ns Flush IV.FLUSH 10 ml DAILY RONALD Administration Tacrolimus 4 mg 04/22/18 21:00 04/25/18 20:36 Prograf PO 4 mg Q12HR RONALD Administration Objective Remarks: GENERAL: Well-nourished, well-developed patient. SKIN: Warm and dry. HEAD: Normocephalic. EYES: No scleral icterus. No injection or drainage. NECK: Supple, trachea midline. No JVD or lymphadenopathy. LYMPHATIC: No adenopathy. CARDIOVASCULAR: Regular rate and rhythm without murmurs. RESPIRATORY: . No accessory muscle use. EXTREMITIES: No cyanosis, or edema. MUSCULOSKELETAL: Adequate muscle tone. NEUROLOGICAL: No obvious focal deficit. Awake, alert, and oriented x3. PSYCHIATRIC: Appropriate mood and affect; insight and judgment normal. Assessment/Plan - Plan 1. Thrombocytosis: CALR, MPL, JAK2 negative from 04/04. BCR ABL pending from 04/23. Likely reactive. Will plan for bone marrow biopsy 2. History of VTE: unprovoked. She will need to be on indefinite anticoagulation.
[2018-04-26] MEDS: HYDROmorphone PF Inj 2 MG/ML Vial IV.PUSH PRN ×4 (01:51→20:46)
[2018-04-26] MEDS: Sod Chloride 0.9% Inj 1,000 ML IV.CONT SCH ×2 (06:20→17:09)
[2018-04-26] MEDS: Heparin Central Flush 100 UNIT/ML 5 ML Vial IV.FLUSH SCH (08:17)
[2018-04-26] MEDS: Insulin Detemir Inj 1,000 UNIT/10 ML Vial SQ SCH ×2 (08:18→22:53)
[2018-04-26] MEDS: Carvedilol 12.5 MG Tablet PO SCH ×2 (08:19→20:50)
[2018-04-26] MEDS: Metoclopramide 10 MG Tablet PO SCH ×4 (08:19→20:49)
[2018-04-26] MEDS: Acetaminophen 325 MG Tablet PO PRN (08:19)
[2018-04-26] MEDS: predniSONE 10 MG Tablet PO SCH (08:20)
[2018-04-26] MEDS: Insulin NovoLOG Aspart Correctional Sugar Inj SQ SCH ×4 (08:20→22:53)
[2018-04-26 09:15] LABS: Baso % (Auto) 0.4 % (0.0-2.0); Eos # (Auto) 0.4 th/mm3 (0.0-0.4); Eos % (Auto) 3.9 % (0.0-4.0); Hematocrit 26.6 % (35.0-46.0); Hemoglobin 8.5 gm/dL (11.6-15.3); Lymph # (Auto) 0.9 th/mm3 (1.0-4.8); Lymph % (Auto) 7.9 % (9.0-44.0); Mean Corpuscular HGB Conc 31.9 % (32.0-36.0); Mean Corpuscular Hemoglobin 27.9 pg (27.0-34.0); Mean Corpuscular Volume 87.4 fL (80.0-100.0); Mean Platelet Volume 8.2 fL (7.0-11.0); Mono # (Auto) 1.4 th/mm3 (0.0-0.9); Mono % (Auto) 12.2 % (0.0-8.0); Neut # (Auto) 8.4 th/mm3 (1.8-7.7); Neut % (Auto) 75.6 % (16.0-70.0); Platelet Count 1004 th/mm3 (150-450); Red Blood Count 3.04 mil/mm3 (4.00-5.30); Red Cell Distribution Width 16.6 % (11.6-17.2); White Blood Count 11.1 th/mm3 (4.0-11.0)
--- NOTE | 2018-04-26 09:18 | P.PNONC ---
Subjective Interval history: Resting comfortably in bed. Reports headache this morning which is improved with acetaminophen. Objective Vital Signs/Intake & Output: Vital Signs 04/25/18 10:00 04/25/18 11:00 04/25/18 11:56 Temperature 98.2 F Pulse Rate 84 89 81 Respiratory Rate 16 Blood Pressure 107/61 Pulse Oximetry 96 04/25/18 11:58 04/25/18 13:00 04/25/18 14:00 Temperature Pulse Rate 86 77 75 Respiratory Rate Blood Pressure Pulse Oximetry 04/25/18 15:00 04/25/18 15:51 04/25/18 15:53 Temperature 98 F Pulse Rate 75 72 76 Respiratory Rate 14 Blood Pressure 120/67 Pulse Oximetry 96 04/25/18 17:00 04/25/18 18:00 04/25/18 19:00 Temperature 98.2 F Pulse Rate 76 76 76 Respiratory Rate 16 Blood Pressure 144/79 H Pulse Oximetry 97 04/25/18 20:00 04/25/18 21:00 04/25/18 22:00 Temperature Pulse Rate 70 72 72 Respiratory Rate Blood Pressure Pulse Oximetry 04/25/18 23:00 04/26/18 00:00 04/26/18 01:00 Temperature 98.3 F Pulse Rate 72 73 68 Respiratory Rate 16 Blood Pressure 137/73 Pulse Oximetry 98 04/26/18 02:00 04/26/18 03:00 04/26/18 04:00 Temperature 98.8 F Pulse Rate 72 83 72 Respiratory Rate 16 Blood Pressure 126/67 Pulse Oximetry 96 04/26/18 05:00 04/26/18 06:00 04/26/18 07:00 Temperature 92 F L Pulse Rate 72 74 76 Respiratory Rate 14 Blood Pressure 126/69 Pulse Oximetry 04/26/18 08:00 04/26/18 09:00 Temperature Pulse Rate 80 79 Respiratory Rate Blood Pressure Pulse Oximetry Intake & Output 04/25/18 04/26/18 04/26/18 18:59 06:59 18:59 Intake Total 2760 / 2760 2480 / 2480 Output Total 2350 / 2350 1800 / 1800 Balance 410 / 410 680 / 680 Weight 63.5 kg Intake: IV 1200 / 1200 1999 / 1999 NS Inj 1,000 ML @ 100 mls/hr IV 1000 / 1000 1999 .CONT .Q10H [facility] Rx#:[id number] INVanz Inj 1,000 MG In NS Inj 100 / 100 100 ML @ 200 mls/hr IV.SIG Q24H [facility] Rx#:[id number] Merrem Inj 1,000 MG In NS Inj 100 / 100 100 ML @ 200 mls/hr IV.SIG Q12H [facility] Rx#:[id number] Oral 1560 / 1560 480 / 480 Output: Urine 2350 / 2350 1800 / 1800 Other: Date of Last Bowel Movement 04/25/18 04/25/18 04/25/18 # Bowel Movements 3 Result Diagrams: 04/25/18 08:20 04/25/18 11:20 Laboratory Results: Laboratory Results - last 24 hr 04/23/18 04/25/18 04/25/18 18:27 08:20 08:20 Sodium 133 L Potassium 5.7 H D Chloride 102 Carbon Dioxide 22.5 Anion Gap 9 BUN 18 Creatinine 1.36 H Estimated GFR 40 L POC Glucose Random Glucose 428 H D Calcium 9.2 Phosphorus 2.8 Magnesium 1.8 Urine Color Urine Clarity Urine pH Ur Specific [place] Urine Protein Urine Glucose (UA) Urine Ketones Urine Occult Blood Urine Nitrate Urine Bilirubin Urine Urobilinogen Ur Leukocyte Esterase Urine RBC Urine WBC Ur Squamous Epith Cells Urine Mucus Ur Microscopic Review Tacrolimus 13.4 Immunophenotypic Anal 04/25/18 04/25/18 04/25/18 11:19 11:20 15:21 Sodium 131 L Potassium 5.3 H Chloride 101 Carbon Dioxide 24.8 Anion Gap 5 BUN 18 Creatinine 1.47 H Estimated GFR 37 L POC Glucose 423 H 268 H Random Glucose 417 H Calcium 8.8 Phosphorus Magnesium Urine Color Urine Clarity Urine pH Ur Specific [place] Urine Protein Urine Glucose (UA) Urine Ketones Urine Occult Blood Urine Nitrate Urine Bilirubin Urine Urobilinogen Ur Leukocyte Esterase Urine RBC Urine WBC Ur Squamous Epith Cells Urine Mucus Ur Microscopic Review Tacrolimus Immunophenotypic Anal 04/25/18 04/25/18 04/25/18 16:45 19:25 Unknown Sodium Potassium Chloride Carbon Dioxide Anion Gap BUN Creatinine Estimated GFR POC Glucose 297 H 301 H Random Glucose Calcium Phosphorus Magnesium Urine Color Straw Urine Clarity Clear Urine pH 5.0 Ur Specific [place] 1.001 L Urine Protein Negative Urine Glucose (UA) 500 or greater Urine Ketones Negative Urine Occult Blood Negative Urine Nitrate Negative Urine Bilirubin Negative Urine Urobilinogen Less than 2 Ur Leukocyte Esterase Negative Urine RBC Less than 1 Urine WBC 1 Ur Squamous Epith Cells <1 Urine Mucus Few H Ur Microscopic Review Not Reportable Tacrolimus Immunophenotypic Anal 04/26/18 08:04 Sodium Potassium Chloride Carbon Dioxide Anion Gap BUN Creatinine Estimated GFR POC Glucose 143 H Random Glucose Calcium Phosphorus Magnesium Urine Color Urine Clarity Urine pH Ur Specific [place] Urine Protein Urine Glucose (UA) Urine Ketones Urine Occult Blood Urine Nitrate Urine Bilirubin Urine Urobilinogen Ur Leukocyte Esterase Urine RBC Urine WBC Ur Squamous Epith Cells Urine Mucus Ur Microscopic Review Tacrolimus Immunophenotypic Anal Culture Results: Microbiology 04/23/18 00:43 Aerobic Blood Culture - Preliminary Blood - Peripheral No growth in 2 days Anaerobic Blood Culture - Preliminary No growth in 2 days 04/23/18 00:35 Aerobic Blood Culture - Preliminary Blood - Peripheral No growth in 2 days Anaerobic Blood Culture - Preliminary No growth in 2 days 04/22/18 09:50 Urine Culture - Final Clean Catch Urine No growth in 48 hours Medications: Active Medications Generic Name Dose Route Start Last Admin Trade Name Freq PRN Reason Stop Dose Admin Acetaminophen 650 mg 04/22/18 11:20 04/26/18 08:19 Tylenol PO 650 mg Q4H PRN Administration Headache, fever, pain 1-4 Atorvastatin Calcium 20 mg 04/23/18 09:00 04/26/18 08:19 Lipitor PO 20 mg DAILY RONALD Administration Carvedilol 12.5 mg 04/22/18 21:00 04/26/18 08:19 Coreg PO 12.5 mg BID RONALD Administration Enoxaparin Sodium 40 mg 04/22/18 18:00 04/25/18 17:16 Lovenox Inj SQ 40 mg Q24H RONALD Administration Heparin Sodium (Porcine) 0 unit 04/25/18 09:00 04/26/18 08:17 Heparin Central Flush IV.FLUSH 250 unit DAILY RONALD Administration Hydromorphone HCl 2 mg 04/22/18 12:11 04/26/18 05:51 Dilaudid Pf Inj IV.PUSH 2 mg Q4H PRN Administration Pain 7-10 if NPO Hydromorphone HCl 2 mg 04/23/18 08:57 04/23/18 11:44 Dilaudid PO 2 mg Q3H PRN Administration PAIN SCALE 1 TO 5 Hydromorphone HCl 4 mg 04/23/18 08:58 04/25/18 20:36 Dilaudid PO 4 mg Q6H PRN Administration PAIN SCALE 6 TO 10 Hydroxyzine HCl 25 mg 04/25/18 17:15 04/26/18 01:53 Vistaril Inj IM 25 mg Q8H PRN Administration ITCHING Sodium Chloride 1,000 mls @ 100 mls/hr 04/22/18 11:30 04/26/18 06:20 Ns Inj IV.CONT 100 mls/hr .Q10H RONALD Administration Ertapenem 1,000 mg/ Sodium 100 mls @ 200 mls/hr 04/25/18 15:00 04/25/18 15:15 Chloride IV.SIG Infused Q24H RONALD Infusion Insulin Aspart 0 unit 04/22/18 21:00 04/26/18 08:20 Novolog Insulin Correctional Sugar Inj SQ Not Given [facility] Protocol Insulin Detemir 10 unit 04/25/18 21:00 04/26/18 08:18 Levemir Inj SQ 10 unit BID RONALD Administration Metoclopramide HCl 5 mg 04/25/18 12:00 04/26/18 08:19 Reglan PO 5 mg ACHS RONALD Administration Ondansetron HCl 4 mg 04/22/18 11:20 04/25/18 01:25 Zofran Inj IV.PUSH 4 mg Q6H PRN Administration NAUSEA OR VOMITING Pantoprazole Sodium 40 mg 04/23/18 09:00 04/26/18 08:19 Protonix PO 40 mg BID RONALD Administration Prednisone 10 mg 04/24/18 12:00 04/26/18 08:20 Deltasone PO 10 mg DAILY RONALD Administration Prochlorperazine Edisylate 5 mg 04/24/18 19:26 04/26/18 04:49 Compazine Inj IV.PUSH 5 mg Q6H PRN Administration HEADACHE Sodium Chloride 0 ml 04/25/18 09:00 04/26/18 08:20 Ns Flush IV.FLUSH 10 ml DAILY RONALD Administration Tacrolimus 4 mg 04/22/18 21:00 04/26/18 08:18 Prograf PO 4 mg Q12HR RONALD Administration Objective Remarks: GENERAL: Well-nourished, well-developed patient. SKIN: Warm and dry. HEAD: Normocephalic. EYES: No scleral icterus. No injection or drainage. RESPIRATORY: No accessory muscle use. GASTROINTESTINAL: Abdomen soft, non-tender, nondistended. EXTREMITIES: No cyanosis, or edema. MUSCULOSKELETAL: Adequate muscle tone. NEUROLOGICAL: No obvious focal deficit. Awake, alert, and oriented x3. PSYCHIATRIC: Appropriate mood and affect; insight and judgment normal. Assessment/Plan - Plan 1. Thrombocytosis: CALR, MPL, JAK2 negative from 04/04. BCR ABL pending from 04/23. Likely reactive. Will order bone marrow biopsy to evaluate for underlying MPN. 2. History of VTE: unprovoked. She will need to be on indefinite anticoagulation.
[2018-04-26 09:35] LABS: Calcium 9.2 mg/dL (8.5-10.1); Carbon Dioxide 24.2 meq/L (21.0-32.0); Magnesium 1.4 mg/dL (1.5-2.5); Potassium 4.9 meq/L (3.5-5.1)
[2018-04-26 09:43] LABS: Phosphorus 1.9 mg/dL (2.5-4.9)
--- NOTE | 2018-04-26 11:04 | P.PNTS ---
Subjective Interval history: No new c/o. Abd pain better today. Still with persistent nausea. Headache better Physical Exam Vital signs: Vital Signs 04/25/18 11:00 04/25/18 11:56 04/25/18 11:58 Temperature 98.2 F Pulse Rate 89 81 86 Respiratory Rate 16 Blood Pressure 107/61 Pulse Oximetry 96 04/25/18 13:00 04/25/18 14:00 04/25/18 15:00 Temperature Pulse Rate 77 75 75 Respiratory Rate Blood Pressure Pulse Oximetry 04/25/18 15:51 04/25/18 15:53 04/25/18 17:00 Temperature 98 F Pulse Rate 72 76 76 Respiratory Rate 14 Blood Pressure 120/67 Pulse Oximetry 96 04/25/18 18:00 04/25/18 19:00 04/25/18 20:00 Temperature 98.2 F Pulse Rate 76 76 70 Respiratory Rate 16 Blood Pressure 144/79 H Pulse Oximetry 97 04/25/18 21:00 04/25/18 22:00 04/25/18 23:00 Temperature 98.3 F Pulse Rate 72 72 72 Respiratory Rate 16 Blood Pressure 137/73 Pulse Oximetry 98 04/26/18 00:00 04/26/18 01:00 04/26/18 02:00 Temperature Pulse Rate 73 68 72 Respiratory Rate Blood Pressure Pulse Oximetry 04/26/18 03:00 04/26/18 04:00 04/26/18 05:00 Temperature 98.8 F Pulse Rate 83 72 72 Respiratory Rate 16 Blood Pressure 126/67 Pulse Oximetry 96 04/26/18 06:00 04/26/18 07:00 04/26/18 08:00 Temperature 92 F L Pulse Rate 74 76 80 Respiratory Rate 14 Blood Pressure 126/69 Pulse Oximetry 04/26/18 09:00 04/26/18 10:00 Temperature Pulse Rate 79 77 Respiratory Rate Blood Pressure Pulse Oximetry Intake & Output 04/25/18 04/26/18 04/26/18 18:59 06:59 18:59 Intake Total 2760 / 2760 2480 / 2480 Output Total 2350 / 2350 1800 / 1800 Balance 410 / 410 680 / 680 Weight 63.5 kg Intake: IV 1200 / 1200 1999 / 1999 NS Inj 1,000 ML @ 100 mls/hr IV 1000 / 1000 1999 .CONT .Q10H [facility] Rx#:[id number] INVanz Inj 1,000 MG In NS Inj 100 / 100 100 ML @ 200 mls/hr IV.SIG Q24H [facility] Rx#:[id number] Merrem Inj 1,000 MG In NS Inj 100 / 100 100 ML @ 200 mls/hr IV.SIG Q12H [facility] Rx#:[id number] Oral 1560 / 1560 480 / 480 Output: Urine 2350 / 2350 1800 / 1800 Other: Date of Last Bowel Movement 04/25/18 04/25/18 04/25/18 # Bowel Movements 3 - Constitutional no acute distress - Routine HEENT Exam Head: Present: normocephalic, atraumatic ENT: Present: mucous membranes moist - Routine Neck Exam Present: supple - Routine Respiratory Exam Present: CTA bilaterally - Routine Abdominal Exam Present: soft, normoactive bowel sounds Comments: less tender - Routine Extremities Exam Present: pulses intact Comments: calves soft NT nbilaterally. Extremity edema/anasarca improved - Routine Skin Exam Present: intact - Routine Neurological Exam Present: alert, oriented X3 - Detailed Neurological Exam: Coma Scale Verbal Response: Oriented - Routine Psychiatric Exam Present: normal affect, normal thought process Results - Labs CBC & Chem 7: 04/26/18 08:15 04/26/18 08:15 Laboratory Results - last 24 hr 04/23/18 04/25/18 04/25/18 18:27 08:20 11:19 WBC RBC Hgb Hct MCV MCH MCHC RDW Plt Count MPV Prelim Diff (Auto) Neut % (Auto) Lymph % (Auto) Mineral % (Auto) Eos % (Auto) Baso % (Auto) Neut # (Auto) Lymph # (Auto) [place] # (Auto) Eos # (Auto) Baso # (Auto) WBC Differential Differential Comment Sodium Potassium Chloride Carbon Dioxide Anion Gap BUN Creatinine Estimated GFR POC Glucose 423 H Random Glucose Calcium Phosphorus Magnesium Urine Color Urine Clarity Urine pH Ur Specific Transfer Urine Protein Urine Glucose (UA) Urine Ketones Urine Occult Blood Urine Nitrate Urine Bilirubin Urine Urobilinogen Ur Leukocyte Esterase Urine RBC Urine WBC Ur Squamous Epith Cells Urine Mucus Ur Microscopic Review Tacrolimus 13.4 Immunophenotypic Anal 04/25/18 04/25/18 04/25/18 11:20 15:21 16:45 WBC RBC Hgb Hct MCV MCH MCHC RDW Plt Count MPV Prelim Diff (Auto) Neut % (Auto) Lymph % (Auto) Min[place] % (Auto) Eos % (Auto) Baso % (Auto) Neut # (Auto) Lymph # (Auto) [place] # (Auto) Eos # (Auto) Baso # (Auto) WBC Differential Differential Comment Sodium 131 L Potassium 5.3 H Chloride 101 Carbon Dioxide 24.8 Anion Gap 5 BUN 18 Creatinine 1.47 H Estimated GFR 37 L POC Glucose 268 H 297 H Random Glucose 417 H Calcium 8.8 Phosphorus Magnesium Urine Color Urine Clarity Urine pH Ur Specific Transfer Urine Protein Urine Glucose (UA) Urine Ketones Urine Occult Blood Urine Nitrate Urine Bilirubin Urine Urobilinogen Ur Leukocyte Esterase Urine RBC Urine WBC Ur Squamous Epith Cells Urine Mucus Ur Microscopic Review Tacrolimus Immunophenotypic Anal 04/25/18 04/25/18 04/26/18 19:25 Unknown 08:04 WBC RBC Hgb Hct MCV MCH MCHC RDW Plt Count MPV Prelim Diff (Auto) Neut % (Auto) Lymph % (Auto) Min[place] % (Auto) Eos % (Auto) Baso % (Auto) Neut # (Auto) Lymph # (Auto) [place] # (Auto) Eos # (Auto) Baso # (Auto) WBC Differential Differential Comment Sodium Potassium Chloride Carbon Dioxide Anion Gap BUN Creatinine Estimated GFR POC Glucose 301 H 143 H Random Glucose Calcium Phosphorus Magnesium Urine Color Straw Urine Clarity Clear Urine pH 5.0 Ur Specific Transfer 1.001 L Urine Protein Negative Urine Glucose (UA) 500 or greater Urine Ketones Negative Urine Occult Blood Negative Urine Nitrate Negative Urine Bilirubin Negative Urine Urobilinogen Less than 2 Ur Leukocyte Esterase Negative Urine RBC Less than 1 Urine WBC 1 Ur Squamous Epith Cells <1 Urine Mucus Few H Ur Microscopic Review Not Reportable Tacrolimus Immunophenotypic Anal 04/26/18 04/26/18 08:15 08:15 WBC 11.1 H D RBC 3.04 L Hgb 8.5 L Hct 26.6 L MCV 87.4 MCH 27.9 MCHC 31.9 L RDW 16.6 Plt Count 1004 H MPV 8.2 Prelim Diff (Auto) Slide review pending Neut % (Auto) 75.6 H Lymph % (Auto) 7.9 L [place] % (Auto) 12.2 H Eos % (Auto) 3.9 Baso % (Auto) 0.4 Neut # (Auto) 8.4 H Lymph # (Auto) 0.9 L [place] # (Auto) 1.4 H Eos # (Auto) 0.4 Baso # (Auto) 0.0 WBC Differential . Differential Comment . Sodium 138 Potassium 4.9 Chloride 106 Carbon Dioxide 24.2 Anion Gap 8 BUN 15 Creatinine 1.11 H Estimated GFR 51 L POC Glucose Random Glucose 132 H D Calcium 9.2 Phosphorus 1.9 L Magnesium 1.4 L Urine Color Urine Clarity Urine pH Ur Specific Transfer Urine Protein Urine Glucose (UA) Urine Ketones Urine Occult Blood Urine Nitrate Urine Bilirubin Urine Urobilinogen Ur Leukocyte Esterase Urine RBC Urine WBC Ur Squamous Epith Cells Urine Mucus Ur Microscopic Review Tacrolimus Immunophenotypic Anal Microbiology 04/23/18 00:43 Blood - Peripheral Aerobic Blood Culture - Preliminary No growth in 2 days 04/23/18 00:43 Blood - Peripheral Anaerobic Blood Culture - Preliminary No growth in 2 days 04/23/18 00:35 Blood - Peripheral Aerobic Blood Culture - Preliminary No growth in 2 days 04/23/18 00:35 Blood - Peripheral Anaerobic Blood Culture - Preliminary No growth in 2 days Assessment and Plan - Assessment (1) Renal transplant recipient Code(s): Z94.0 - Kidney transplant status Status: Acute (2) Renal insufficiency Code(s): N28.9 - Disorder of kidney and ureter, unspecified Status: Acute (3) DM (diabetes mellitus) Code(s): E11.9 - Type 2 diabetes mellitus without complications Status: Acute (4) Abdominal pain Code(s): R10.9 - Unspecified abdominal pain Status: Acute - Plan Patient with complex medical and surgical history, s/p living donor kidney transplant in June 2017 in [place]. Was seen at [facility] since then for consideration for multivisceral transplant. Was on TPN, but has since refused to resume, although its unclear, how well she will do nutritionally due to the amount of remaining bowel. She seemed to be doing okay post discharge. Her urinary tract infection seemed to be responding to antibiosis, however, she now re-presents with what seems to be either a new or recurrent UTI. Mild anasarca improved As per d/w Dr Dailey at [facility] would recommend resuming anegralide when appropriate (? 1-2 days) after bone marrow biopsy completed. Will await hem-onc w/u, then discuss plan with them. labs reviewed. Await prograf level today. Continue antibiosis. No new recommendations.
--- NOTE | 2018-04-26 12:01 | P.PNGI ---
Subjective Interval history: Patient is resting in the bed still complains of loose diarrhea brown stools belching bloating mild gastric discomfort <Michaelle Balbuena M - Last Filed: 04/26/18 12:03> Physical Exam Vital signs: Vital Signs 04/25/18 13:00 04/25/18 14:00 04/25/18 15:00 Temperature Pulse Rate 77 75 75 Respiratory Rate Blood Pressure Pulse Oximetry 04/25/18 15:51 04/25/18 15:53 04/25/18 17:00 Temperature 98 F Pulse Rate 72 76 76 Respiratory Rate 14 Blood Pressure 120/67 Pulse Oximetry 96 04/25/18 18:00 04/25/18 19:00 04/25/18 20:00 Temperature 98.2 F Pulse Rate 76 76 70 Respiratory Rate 16 Blood Pressure 144/79 H Pulse Oximetry 97 04/25/18 21:00 04/25/18 22:00 04/25/18 23:00 Temperature 98.3 F Pulse Rate 72 72 72 Respiratory Rate 16 Blood Pressure 137/73 Pulse Oximetry 98 04/26/18 00:00 04/26/18 01:00 04/26/18 02:00 Temperature Pulse Rate 73 68 72 Respiratory Rate Blood Pressure Pulse Oximetry 04/26/18 03:00 04/26/18 04:00 04/26/18 05:00 Temperature 98.8 F Pulse Rate 83 72 72 Respiratory Rate 16 Blood Pressure 126/67 Pulse Oximetry 96 04/26/18 06:00 04/26/18 07:00 04/26/18 08:00 Temperature 92 F L Pulse Rate 74 76 80 Respiratory Rate 14 Blood Pressure 126/69 Pulse Oximetry 04/26/18 09:00 04/26/18 10:00 04/26/18 11:00 Temperature 98.3 F Pulse Rate 79 77 75 Respiratory Rate 18 Blood Pressure 127/71 Pulse Oximetry 98 04/26/18 11:41 Temperature Pulse Rate 79 Respiratory Rate Blood Pressure Pulse Oximetry Intake & Output 04/25/18 04/26/18 04/26/18 18:59 06:59 18:59 Intake Total 2760 / 2760 2480 / 2480 Output Total 2350 / 2350 1800 / 1800 Balance 410 / 410 680 / 680 Weight 63.5 kg Intake: IV 1200 / 1200 1999 / 1999 NS Inj 1,000 ML @ 100 mls/hr IV 1000 / 1000 1999 / 1999 .CONT .Q10H [facility] Rx#:[id number] INVanz Inj 1,000 MG In NS Inj 100 / 100 100 ML @ 200 mls/hr IV.SIG Q24H [facility] Rx#:[id number] Merrem Inj 1,000 MG In NS Inj 100 / 100 100 ML @ 200 mls/hr IV.SIG Q12H [facility] Rx#:[id number] Oral 1560 / 1560 480 / 480 Output: Urine 2350 / 2350 1800 / 1800 Other: Date of Last Bowel Movement 04/25/18 04/25/18 04/25/18 # Bowel Movements 3 - Constitutional mild distress, thin, cachectic, cooperative - Routine HEENT Exam ENT: Present: mucous membranes dry - Routine Respiratory Exam Present: accessory muscle use (This of breath by rest) - Routine Abdominal Exam Present: soft (Flat, soft bowel sounds), distended (No obvious distention) - Routine Skin Exam Present: pallor <Sree,Michaelle M - Last Filed: 04/26/18 12:03> Vital signs: Vital Signs 04/25/18 17:00 04/25/18 18:00 04/25/18 19:00 Temperature 98.2 F Pulse Rate 76 76 76 Respiratory Rate 16 Blood Pressure 144/79 H Pulse Oximetry 97 04/25/18 20:00 04/25/18 21:00 04/25/18 22:00 Temperature Pulse Rate 70 72 72 Respiratory Rate Blood Pressure Pulse Oximetry 04/25/18 23:00 04/26/18 00:00 04/26/18 01:00 Temperature 98.3 F Pulse Rate 72 73 68 Respiratory Rate 16 Blood Pressure 137/73 Pulse Oximetry 98 04/26/18 02:00 04/26/18 03:00 04/26/18 04:00 Temperature 98.8 F Pulse Rate 72 83 72 Respiratory Rate 16 Blood Pressure 126/67 Pulse Oximetry 96 04/26/18 05:00 04/26/18 06:00 04/26/18 07:00 Temperature 92 F L Pulse Rate 72 74 76 Respiratory Rate 14 Blood Pressure 126/69 Pulse Oximetry 04/26/18 08:00 04/26/18 09:00 04/26/18 10:00 Temperature Pulse Rate 80 79 77 Respiratory Rate Blood Pressure Pulse Oximetry 04/26/18 11:00 04/26/18 11:41 04/26/18 13:00 Temperature 98.3 F Pulse Rate 75 79 80 Respiratory Rate 18 Blood Pressure 127/71 Pulse Oximetry 98 04/26/18 13:55 Temperature Pulse Rate 68 Respiratory Rate Blood Pressure Pulse Oximetry Intake & Output 04/25/18 04/26/18 04/26/18 18:59 06:59 18:59 Intake Total 2760 / 2760 2480 / 2480 Output Total 2350 / 2350 1800 / 1800 Balance 410 / 410 680 / 680 Weight 63.5 kg Intake: IV 1200 / 1200 1999 / 1999 NS Inj 1,000 ML @ 100 mls/hr IV 1000 / 1000 1999 / 1999 .CONT .Q10H [facility] Rx#:[id number] INVanz Inj 1,000 MG In NS Inj 100 / 100 100 ML @ 200 mls/hr IV.SIG Q24H [facility] Rx#:[id number] Merrem Inj 1,000 MG In NS Inj 100 / 100 100 ML @ 200 mls/hr IV.SIG Q12H [facility] Rx#:[id number] Oral 1560 / 1560 480 / 480 Output: Urine 2350 / 2350 1800 / 1800 Other: Date of Last Bowel Movement 04/25/18 04/25/18 04/25/18 # Bowel Movements 3 <Hemaidan,Ammar - Last Filed: 04/26/18 16:50> Results - Labs CBC & Chem 7: 04/26/18 08:15 04/26/18 08:15 Laboratory Results - last 24 hr 04/23/18 04/25/18 04/25/18 18:27 08:20 11:20 WBC RBC Hgb Hct MCV MCH MCHC RDW Plt Count MPV Prelim Diff (Auto) Neut % (Auto) Lymph % (Auto) [place] % (Auto) Eos % (Auto) Baso % (Auto) Neut # (Auto) Lymph # (Auto) [place] # (Auto) Eos # (Auto) Baso # (Auto) WBC Differential Differential Comment Sodium 131 L Potassium 5.3 H Chloride 101 Carbon Dioxide 24.8 Anion Gap 5 BUN 18 Creatinine 1.47 H Estimated GFR 37 L POC Glucose Random Glucose 417 H Calcium 8.8 Phosphorus Magnesium Urine Color Urine Clarity Urine pH Ur Specific [place] Urine Protein Urine Glucose (UA) Urine Ketones Urine Occult Blood Urine Nitrate Urine Bilirubin Urine Urobilinogen Ur Leukocyte Esterase Urine RBC Urine WBC Ur Squamous Epith Cells Urine Mucus Ur Microscopic Review Tacrolimus 13.4 Immunophenotypic Anal 04/25/18 04/25/18 04/25/18 15:21 16:45 19:25 WBC RBC Hgb Hct MCV MCH MCHC RDW Plt Count MPV Prelim Diff (Auto) Neut % (Auto) Lymph % (Auto) [place] % (Auto) Eos % (Auto) Baso % (Auto) Neut # (Auto) Lymph # (Auto) [place] # (Auto) Eos # (Auto) Baso # (Auto) WBC Differential Differential Comment Sodium Potassium Chloride Carbon Dioxide Anion Gap BUN Creatinine Estimated GFR POC Glucose 268 H 297 H 301 H Random Glucose Calcium Phosphorus Magnesium Urine Color Urine Clarity Urine pH Ur Specific [place] Urine Protein Urine Glucose (UA) Urine Ketones Urine Occult Blood Urine Nitrate Urine Bilirubin Urine Urobilinogen Ur Leukocyte Esterase Urine RBC Urine WBC Ur Squamous Epith Cells Urine Mucus Ur Microscopic Review Tacrolimus Immunophenotypic Anal 04/25/18 04/26/18 04/26/18 Unknown 08:04 08:15 WBC 11.1 H D RBC 3.04 L Hgb 8.5 L Hct 26.6 L MCV 87.4 MCH 27.9 MCHC 31.9 L RDW 16.6 Plt Count 1004 H MPV 8.2 Prelim Diff (Auto) Slide review pending Neut % (Auto) 75.6 H Lymph % (Auto) 7.9 L [place] % (Auto) 12.2 H Eos % (Auto) 3.9 Baso % (Auto) 0.4 Neut # (Auto) 8.4 H Lymph # (Auto) 0.9 L Haskell # (Auto) 1.4 H Eos # (Auto) 0.4 Baso # (Auto) 0.0 WBC Differential . Differential Comment . Sodium Potassium Chloride Carbon Dioxide Anion Gap BUN Creatinine Estimated GFR POC Glucose 143 H Random Glucose Calcium Phosphorus Magnesium Urine Color Straw Urine Clarity Clear Urine pH 5.0 Ur Specific [place] 1.001 L Urine Protein Negative Urine Glucose (UA) 500 or greater Urine Ketones Negative Urine Occult Blood Negative Urine Nitrate Negative Urine Bilirubin Negative Urine Urobilinogen Less than 2 Ur Leukocyte Esterase Negative Urine RBC Less than 1 Urine WBC 1 Ur Squamous Epith Cells <1 Urine Mucus Few H Ur Microscopic Review Not Reportable Tacrolimus Immunophenotypic Anal 04/26/18 04/26/18 04/26/18 08:15 08:15 11:20 WBC RBC Hgb Hct MCV MCH MCHC RDW Plt Count MPV Prelim Diff (Auto) Neut % (Auto) Lymph % (Auto) [place] % (Auto) Eos % (Auto) Baso % (Auto) Neut # (Auto) Lymph # (Auto) [place] # (Auto) Eos # (Auto) Baso # (Auto) WBC Differential Differential Comment Sodium 138 Potassium 4.9 Chloride 106 Carbon Dioxide 24.2 Anion Gap 8 BUN 15 Creatinine 1.11 H Estimated GFR 51 L POC Glucose 289 H Random Glucose 132 H D Calcium 9.2 Phosphorus 1.9 L Magnesium 1.4 L Urine Color Urine Clarity Urine pH Ur Specific [place] Urine Protein Urine Glucose (UA) Urine Ketones Urine Occult Blood Urine Nitrate Urine Bilirubin Urine Urobilinogen Ur Leukocyte Esterase Urine RBC Urine WBC Ur Squamous Epith Cells Urine Mucus Ur Microscopic Review Tacrolimus 14.9 Immunophenotypic Anal Microbiology 04/23/18 00:43 Blood - Peripheral Aerobic Blood Culture - Preliminary No growth in 3 days 04/23/18 00:43 Blood - Peripheral Anaerobic Blood Culture - Preliminary No growth in 3 days 04/23/18 00:35 Blood - Peripheral Aerobic Blood Culture - Preliminary No growth in 3 days 04/23/18 00:35 Blood - Peripheral Anaerobic Blood Culture - Preliminary No growth in 3 days <Michaelle Balbuena - Last Filed: 04/26/18 12:03> - Labs CBC & Chem 7: 04/26/18 08:15 04/26/18 08:15 Laboratory Results - last 24 hr 04/23/18 04/25/18 04/25/18 18:27 16:45 19:25 WBC RBC Hgb Hct MCV MCH MCHC RDW Plt Count MPV Prelim Diff (Auto) Neut % (Auto) Lymph % (Auto) [place] % (Auto) Eos % (Auto) Baso % (Auto) Neut # (Auto) Lymph # (Auto) Haskell # (Auto) Eos # (Auto) Baso # (Auto) WBC Differential Differential Comment PT INR Sodium Potassium Chloride Carbon Dioxide Anion Gap BUN Creatinine Estimated GFR POC Glucose 297 H 301 H Random Glucose Calcium Phosphorus Magnesium Urine Color Urine Clarity Urine pH Ur Specific [place] Urine Protein Urine Glucose (UA) Urine Ketones Urine Occult Blood Urine Nitrate Urine Bilirubin Urine Urobilinogen Ur Leukocyte Esterase Urine RBC Urine WBC Ur Squamous Epith Cells Urine Mucus Ur Microscopic Review Tacrolimus Immunophenotypic Anal 04/25/18 04/26/18 04/26/18 Unknown 08:04 08:15 WBC 11.1 H D RBC 3.04 L Hgb 8.5 L Hct 26.6 L MCV 87.4 MCH 27.9 MCHC 31.9 L RDW 16.6 Plt Count 1004 H MPV 8.2 Prelim Diff (Auto) Slide review pending Neut % (Auto) 75.6 H Lymph % (Auto) 7.9 L [place] % (Auto) 12.2 H Eos % (Auto) 3.9 Baso % (Auto) 0.4 Neut # (Auto) 8.4 H Lymph # (Auto) 0.9 L Haskell # (Auto) 1.4 H Eos # (Auto) 0.4 Baso # (Auto) 0.0 WBC Differential . Differential Comment . PT INR Sodium Potassium Chloride Carbon Dioxide Anion Gap BUN Creatinine Estimated GFR POC Glucose 143 H Random Glucose Calcium Phosphorus Magnesium Urine Color Straw Urine Clarity Clear Urine pH 5.0 Ur Specific [place] 1.001 L Urine Protein Negative Urine Glucose (UA) 500 or greater Urine Ketones Negative Urine Occult Blood Negative Urine Nitrate Negative Urine Bilirubin Negative Urine Urobilinogen Less than 2 Ur Leukocyte Esterase Negative Urine RBC Less than 1 Urine WBC 1 Ur Squamous Epith Cells <1 Urine Mucus Few H Ur Microscopic Review Not Reportable Tacrolimus Immunophenotypic Anal 04/26/18 04/26/18 04/26/18 08:15 08:15 11:20 WBC RBC Hgb Hct MCV MCH MCHC RDW Plt Count MPV Prelim Diff (Auto) Neut % (Auto) Lymph % (Auto) [place] % (Auto) Eos % (Auto) Baso % (Auto) Neut # (Auto) Lymph # (Auto) [place] # (Auto) Eos # (Auto) Baso # (Auto) WBC Differential Differential Comment PT INR Sodium 138 Potassium 4.9 Chloride 106 Carbon Dioxide 24.2 Anion Gap 8 BUN 15 Creatinine 1.11 H Estimated GFR 51 L POC Glucose 289 H Random Glucose 132 H D Calcium 9.2 Phosphorus 1.9 L Magnesium 1.4 L Urine Color Urine Clarity Urine pH Ur Specific [place] Urine Protein Urine Glucose (UA) Urine Ketones Urine Occult Blood Urine Nitrate Urine Bilirubin Urine Urobilinogen Ur Leukocyte Esterase Urine RBC Urine WBC Ur Squamous Epith Cells Urine Mucus Ur Microscopic Review Tacrolimus 14.9 Immunophenotypic Anal 04/26/18 11:30 WBC RBC Hgb Hct MCV MCH MCHC RDW Plt Count MPV Prelim Diff (Auto) Neut % (Auto) Lymph % (Auto) [place] % (Auto) Eos % (Auto) Baso % (Auto) Neut # (Auto) Lymph # (Auto) [place] # (Auto) Eos # (Auto) Baso # (Auto) WBC Differential Differential Comment PT 10.0 INR 1.0 Sodium Potassium Chloride Carbon Dioxide Anion Gap BUN Creatinine Estimated GFR POC Glucose Random Glucose Calcium Phosphorus Magnesium Urine Color Urine Clarity Urine pH Ur Specific [place] Urine Protein Urine Glucose (UA) Urine Ketones Urine Occult Blood Urine Nitrate Urine Bilirubin Urine Urobilinogen Ur Leukocyte Esterase Urine RBC Urine WBC Ur Squamous Epith Cells Urine Mucus Ur Microscopic Review Tacrolimus Immunophenotypic Anal Microbiology 04/23/18 00:43 Blood - Peripheral Aerobic Blood Culture - Preliminary No growth in 3 days 04/23/18 00:43 Blood - Peripheral Anaerobic Blood Culture - Preliminary No growth in 3 days 04/23/18 00:35 Blood - Peripheral Aerobic Blood Culture - Preliminary No growth in 3 days 04/23/18 00:35 Blood - Peripheral Anaerobic Blood Culture - Preliminary No growth in 3 days <Barbara Appiah - Last Filed: 04/26/18 16:50> Assessment and Plan (1) Abdominal pain Status: Acute Code(s): R10.9 - Unspecified abdominal pain (2) Gastroparesis Status: Acute Code(s): K31.84 - Gastroparesis (3) Nausea Status: Acute Code(s): R11.0 - Nausea - Plan This patient is a 57-year-old female with a past medical history of diabetes mellitus, dumping syndrome, chronic diarrhea, GERD, gastroparesis, renal transplant and splenectomy. Patient also has medical history of polycystic kidney disease, recurrent DVT/PE, chronic pancreatitis. Surgical history includes total pancreatectomy in 2010, revision of anastomosis from liver to intestines in January 2018, and renal transplant. Patient presented to the emergency room at [facility] on 04/22/2018 with complaint of generalized abdominal pain and excessive belching with reflux consisting of undigested food. Upon consultation, patient states that she has had reflux of undigested food for the past 2-1/2-3 weeks since discontinuing TPN during last admission. Patient reports increased frequency of belching states unrelieved by antireflux precautions, Dexilant and Reglan. Patient also reports epigastric pain that is tender in nature onset 2-3 days ago. States she maintains a diabetic diet at home consisting of egg, other proteins, shakes and various starches. Patient endorses chronic nausea and states that that is unchanged. 04/22/2018 CT of the abdomen and pelvis revealed the following findings--> No acute findings. The overall appearance of CT scan is stable compared to 2017 with multiple findings as described above. Patient states she has 2 sit upright to sleep at night due to persistent reflux of undigested food. She eats her last meal at 4:30 PM and goes to bed 6 hours later. Patient denies any difficulty or pain with swallowing and denies heartburn. States she is on Dexilant 60 mg p.o. daily. Last EGD was done on 04/05/2018 and reveal the following findings--> 1. There was LA Class A esophagitis noted 2. Approx 450cc of fluid retained in the stomach. Suctioned. Gastro - jujenostomy identified. Small bowel mucosa normal 3. Food residue in the gastric body 4. Normal duodenal mucosa 5. Retroflexed views revealed no abnormalities. Patient denies constipation or diarrhea. Reports daily stools 1-2 times soft and brown without any noted bleeding. Last colonoscopy was done on 04/05/2018 and revealed the following findings--> 1. There was evidence of prior surgical anastomosis; biopsy was performed using cold forceps 2. Retroflexed views revealed internal hemorrhoid 3. Revealed external hemorrhoids. Our service has been consulted to evaluate patient's report of persistent reflux of undigested food with epigastric abdominal pain. 04/26/2018 patient is awake chief GI complaints are belching bloating and loose stools 3-4 times which appears to be functional for her a day patient states that she had the same symptoms approximately 2 months ago and rifaximin medication times 1 week was effective. Patient states pending bone marrow biopsy, platelet count now 1004 CT scan done on 04/22/2018 did show moderate gaseous distention. Hemoglobin now 8.5 WBC count 11.1 mild leukocytosis unspecified taking Lomotil which is effective. Multi-comorbidities noted, loose stools could be related to IBS versus medications, gastroparesis, continue Reglan, small feedings 6+ times a day, decrease sugar foods which could exacerbate Plan Diet diabetic Lomotil as needed Rifaximin initially started low-dose 200 mg every 8 hours x 7 days Reglan 5 mg before meals and at bedtime, monitor could exacerbate diarrhea Monitor labs with special attention to hemoglobin Monitor stools PPI for now but patient will need new prescription of Dexilant on discharge Further recommendations to follow Patient was seen per myself and Dr. Appiah, note was written on his behalf <Michaelle Balbuena - Last Filed: 04/26/18 12:03> (1) Abdominal pain Status: Acute Code(s): R10.9 - Unspecified abdominal pain (2) Gastroparesis Status: Acute Code(s): K31.84 - Gastroparesis (3) Nausea Status: Acute Code(s): R11.0 - Nausea - Plan Patient was seen and examined, agree with above note, patient had used Xifaxan before for bacterial overgrowth and she stated that it helped with the diarrhea and belching so we will order a course of that for 1 week, patient also getting Reglan 5mg a talk to her about the side effect neurologically from this drug and that she should not use this except for short period of time, patient acknowledges that and she is going to have bone marrow for her platelet count. We will follow-up as needed from GI perspective and she can visit as an outpatient in 2 weeks <Barbara Appiah - Last Filed: 04/26/18 16:50>
--- NOTE | 2018-04-26 12:43 | P.PNNP ---
Subjective Interval history: Patient complains of belching and bloating, some epigastric pain Physical Exam Vital signs: Vital Signs 04/25/18 13:00 04/25/18 14:00 04/25/18 15:00 Temperature Pulse Rate 77 75 75 Respiratory Rate Blood Pressure Pulse Oximetry 04/25/18 15:51 04/25/18 15:53 04/25/18 17:00 Temperature 98 F Pulse Rate 72 76 76 Respiratory Rate 14 Blood Pressure 120/67 Pulse Oximetry 96 04/25/18 18:00 04/25/18 19:00 04/25/18 20:00 Temperature 98.2 F Pulse Rate 76 76 70 Respiratory Rate 16 Blood Pressure 144/79 H Pulse Oximetry 97 04/25/18 21:00 04/25/18 22:00 04/25/18 23:00 Temperature 98.3 F Pulse Rate 72 72 72 Respiratory Rate 16 Blood Pressure 137/73 Pulse Oximetry 98 04/26/18 00:00 04/26/18 01:00 04/26/18 02:00 Temperature Pulse Rate 73 68 72 Respiratory Rate Blood Pressure Pulse Oximetry 04/26/18 03:00 04/26/18 04:00 04/26/18 05:00 Temperature 98.8 F Pulse Rate 83 72 72 Respiratory Rate 16 Blood Pressure 126/67 Pulse Oximetry 96 04/26/18 06:00 04/26/18 07:00 04/26/18 08:00 Temperature 92 F L Pulse Rate 74 76 80 Respiratory Rate 14 Blood Pressure 126/69 Pulse Oximetry 04/26/18 09:00 04/26/18 10:00 04/26/18 11:00 Temperature 98.3 F Pulse Rate 79 77 75 Respiratory Rate 18 Blood Pressure 127/71 Pulse Oximetry 98 04/26/18 11:41 Temperature Pulse Rate 79 Respiratory Rate Blood Pressure Pulse Oximetry Intake & Output 04/25/18 04/26/18 04/26/18 18:59 06:59 18:59 Intake Total 2760 / 2760 2480 / 2480 Output Total 2350 / 2350 1800 / 1800 Balance 410 / 410 680 / 680 Weight 63.5 kg Intake: IV 1200 / 1200 1999 / 1999 NS Inj 1,000 ML @ 100 mls/hr IV 1000 / 1000 1999 / 1999 .CONT .Q10H [facility] Rx#:[id number] INVanz Inj 1,000 MG In NS Inj 100 / 100 100 ML @ 200 mls/hr IV.SIG Q24H [facility] Rx#:[id number] Merrem Inj 1,000 MG In NS Inj 100 / 100 100 ML @ 200 mls/hr IV.SIG Q12H [facility] Rx#:[id number] Oral 1560 / 1560 480 / 480 Output: Urine 2350 / 2350 1800 / 1800 Other: Date of Last Bowel Movement 04/25/18 04/25/18 04/25/18 # Bowel Movements 3 Narrative: GENERAL: Patient appears older than stated age. CARDIOVASCULAR: Normal rate and regular rhythm without murmurs, gallops, or rubs. RESPIRATORY: Good respiratory efforts. Breath sounds equal and clear to auscultation bilaterally. GASTROINTESTINAL: Abdomen soft, mild tenderness to palpation. Normal active bowel sounds MUSCULOSKELETAL: Extremities without cyanosis, or edema. NEURO: Alert & Oriented x4 to person, place, time, situation. Moves all ext x4 PSYCH: Appropriate mood and affect. Assessment and Plan - Plan Patient with post Renal transplant done in 2017. Cultures negative Now admitted with another episode. Creatinine is 1.1, On Prograf 4 mg BID. Tacrolimus levels are 14.9 reduced dose to 3 mg twice a day Benadryl IV for itching. Ward line inserted. Cultures all negative, ID following. Blood glucose better Levemir 10 units twice daily Patient has low magnesium and phosphorus will replace that, due to epigastric pain and bloating I have resumed Tums every 4 hourly as needed for her GI symptoms, patient has a lot of GI complaints and regurgitation\ Continue to have these complaints, has denied pancreas and bowel transplant due to poor success rate and increased morbidity and mortality associated with such procedure.
--- NOTE | 2018-04-26 12:44 | P.PNID ---
Subjective Remarks: Patient is a 57-year-old female, with a very complicated medical and surgical history, was recently hospitalized for fevers. She was later diagnosed to have urinary tract infection and was discharged on Augmentin. Patient completed the course of antibiotics about 3 days ago. She has had follow-up urinalysis which showed improvement in her pyuria. Her problems started 1 day prior to admission when she developed significant weakness, and later on she started having problem with difficulty urinating, some suprapubic discomfort. When she started urinating she really did not have any dysuria, but had noted decrease in her urine output. She also has been having problem with epigastric pain which was present when she was here during her last admission, but it got better by the time she was discharged, and recently started back again about a week ago. She has chronic nausea but has not had any vomiting. Denies any respiratory complaint. She has been having a lot of reflux symptoms and actually has been sleeping upright. Has not had any fevers, but has had chills for about 2 days on and off. She is also been having sweats since she was discharged from the hospital. She had some episode of blood when she urinated and had a bowel movement and this was about a week ago, and she stopped her anticoagulation. That has stopped. During that time she also noted some nosebleed. Patient called her transplant surgeon, and she was advised to go to the emergency room for further evaluation and treatment. Past Hx: Gastroparesis 2010 Pancreatectomy, islet cell transplant Reza-en-Y duodenal jejunostomy, hepaticojejunostomy, pancreaticojejunostomy, splenectomy 2011 exp lap, RHIANNA, closure of enterotomy in the pancreaticobiliary limb, and terminal ileal through distal sigmoid resection Adult polycystic liver and kidney disease Chronic abdominal pain 2013 extensive RHIANNA, L decortication, and nephrectomy 2016 placement of LUE AVG June 2017 Unrelated donor renal transplant and left nephrectomy August 2017 exp lap, RHIANNA, revision of ileocolic anastomosis September 2017 dev hydro transplant kidney, septic shock, E coli ESBL , and had DVT L femoral vein December 2017 exp lap RHIANNA, and more surgery to bowels previous Ward and removal Notes reviewed D/W RN Temps normal Still with epigastric pain No HAMLIN Nausea as before More liquid stool PO intake fair No vomiting Creatinine better WBC slightly higher 11 Platelet 1004 BM biopsy has been ordered Repeat UA only 1 WBC Vaginal yeast much improved - got one dose Diflucan Antibiotics: Invanz Lines: RIJ Ward Past Medical History: Gastroparesis Diabetes Dumping syndrome Fracture, femur GERD (gastroesophageal reflux disease) Gastroparesis History of hysterectomy Kidney failure Liver function failure H/O splenectomy History of colectomy History of intestinal surgery History of oophorectomy History of pancreatectomy Kidney transplant recipient Surgical procedure on lower extremity within past 6 months Allergies/Adverse Reactions: Allergies metronidazole [From Flagyl] Allergy (Mild, Verified 04/22/18 16:51) Swelling of the Eye oxycodone Allergy (Mild, Verified 04/22/18 16:52) Itching, Generalized oxytetracycline [From Terramycin] Allergy (Mild, Verified 03/27/18 18:27) Hives fentanyl Allergy (Verified 04/05/18 17:07) Edema filgrastim [From Neupogen] Allergy (Verified 04/05/18 10:48) Anaphylaxis Objective Vital Signs 04/25/18 13:00 04/25/18 14:00 04/25/18 15:00 Temperature Pulse Rate 77 75 75 Respiratory Rate Blood Pressure Pulse Oximetry 04/25/18 15:51 04/25/18 15:53 04/25/18 17:00 Temperature 98 F Pulse Rate 72 76 76 Respiratory Rate 14 Blood Pressure 120/67 Pulse Oximetry 96 04/25/18 18:00 04/25/18 19:00 04/25/18 20:00 Temperature 98.2 F Pulse Rate 76 76 70 Respiratory Rate 16 Blood Pressure 144/79 H Pulse Oximetry 97 04/25/18 21:00 04/25/18 22:00 04/25/18 23:00 Temperature 98.3 F Pulse Rate 72 72 72 Respiratory Rate 16 Blood Pressure 137/73 Pulse Oximetry 98 04/26/18 00:00 04/26/18 01:00 04/26/18 02:00 Temperature Pulse Rate 73 68 72 Respiratory Rate Blood Pressure Pulse Oximetry 04/26/18 03:00 04/26/18 04:00 04/26/18 05:00 Temperature 98.8 F Pulse Rate 83 72 72 Respiratory Rate 16 Blood Pressure 126/67 Pulse Oximetry 96 04/26/18 06:00 04/26/18 07:00 04/26/18 08:00 Temperature 92 F L Pulse Rate 74 76 80 Respiratory Rate 14 Blood Pressure 126/69 Pulse Oximetry 04/26/18 09:00 04/26/18 10:00 04/26/18 11:00 Temperature 98.3 F Pulse Rate 79 77 75 Respiratory Rate 18 Blood Pressure 127/71 Pulse Oximetry 98 04/26/18 11:41 Temperature Pulse Rate 79 Respiratory Rate Blood Pressure Pulse Oximetry Intake & Output 04/25/18 04/26/18 04/26/18 18:59 06:59 18:59 Intake Total 2760 / 2760 2480 / 2480 Output Total 2350 / 2350 1800 / 1800 Balance 410 / 410 680 / 680 Weight 63.5 kg Intake: IV 1200 / 1200 1999 / 1999 NS Inj 1,000 ML @ 100 mls/hr IV 1000 / 1000 1999 / 1999 .CONT .Q10H [facility] Rx#:[id number] INVanz Inj 1,000 MG In NS Inj 100 / 100 100 ML @ 200 mls/hr IV.SIG Q24H [facility] Rx#:[id number] Merrem Inj 1,000 MG In NS Inj 100 / 100 100 ML @ 200 mls/hr IV.SIG Q12H [facility] Rx#:[id number] Oral 1560 / 1560 480 / 480 Output: Urine 2350 / 2350 1800 / 1800 Other: Date of Last Bowel Movement 04/25/18 04/25/18 04/25/18 # Bowel Movements 3 04/23/18 00:43 Blood - Peripheral Aerobic Blood Culture - Preliminary No growth in 3 days 04/23/18 00:43 Blood - Peripheral Anaerobic Blood Culture - Preliminary No growth in 3 days 04/23/18 00:35 Blood - Peripheral Aerobic Blood Culture - Preliminary No growth in 3 days 04/23/18 00:35 Blood - Peripheral Anaerobic Blood Culture - Preliminary No growth in 3 days 04/22/18 09:50 Clean Catch Urine Urine Culture - Final No growth in 48 hours Lab - Hematology Results 04/24/18 04/25/18 04/26/18 09:55 08:20 08:15 WBC 6.7 11.1 H D RBC 3.01 L 3.04 L Hgb 8.5 L 8.5 L Hct 26.7 L 26.6 L MCV 88.7 87.4 MCH 28.4 27.9 MCHC 32.0 31.9 L RDW 17.3 H 16.6 Plt Count 949 H 1004 H MPV 8.9 8.2 Prelim Diff (Auto) Slide review pending Neut % (Auto) 73.5 H 75.6 H Lymph % (Auto) 12.4 7.9 L [place] % (Auto) 13.1 H 12.2 H Eos % (Auto) 0.4 3.9 Baso % (Auto) 0.6 0.4 Neut # (Auto) 4.9 8.4 H Lymph # (Auto) 0.8 L 0.9 L [place] # (Auto) 0.9 1.4 H Eos # (Auto) 0.0 0.4 Baso # (Auto) 0.0 0.0 WBC Differential . . Differential Comment Auto diff final . ESR 66 H Lab - Chemistry Results 04/24/18 04/24/18 04/24/18 09:55 15:07 21:39 Sodium Potassium Chloride Carbon Dioxide Anion Gap BUN Creatinine Estimated GFR POC Glucose 172 H 459 H* Random Glucose Calcium Phosphorus Magnesium Vitamin B12 318 04/25/18 04/25/18 04/25/18 08:06 08:20 11:19 Sodium 133 L Potassium 5.7 H D Chloride 102 Carbon Dioxide 22.5 Anion Gap 9 BUN 18 Creatinine 1.36 H Estimated GFR 40 L POC Glucose 433 H 423 H Random Glucose 428 H D Calcium 9.2 Phosphorus 2.8 Magnesium 1.8 Vitamin B12 04/25/18 04/25/18 04/25/18 11:20 15:21 16:45 Sodium 131 L Potassium 5.3 H Chloride 101 Carbon Dioxide 24.8 Anion Gap 5 BUN 18 Creatinine 1.47 H Estimated GFR 37 L POC Glucose 268 H 297 H Random Glucose 417 H Calcium 8.8 Phosphorus Magnesium Vitamin B12 04/25/18 04/26/18 04/26/18 19:25 08:04 08:15 Sodium 138 Potassium 4.9 Chloride 106 Carbon Dioxide 24.2 Anion Gap 8 BUN 15 Creatinine 1.11 H Estimated GFR 51 L POC Glucose 301 H 143 H Random Glucose 132 H D Calcium 9.2 Phosphorus 1.9 L Magnesium 1.4 L Vitamin B12 04/26/18 11:20 Sodium Potassium Chloride Carbon Dioxide Anion Gap BUN Creatinine Estimated GFR POC Glucose 289 H Random Glucose Calcium Phosphorus Magnesium Vitamin B12 Imaging: ITS Impressions Abdomen X-Ray 04/22/18 00:00 CONCLUSION: Negative examination. Abdomen/Pelvis CT 04/22/18 00:00 CONCLUSION: 1. No acute findings. The overall appearance of CT scan is stable compared to 04/04/2018 with multiple findings as described above. Head/Brain Mag Res Venography 04/24/18 00:00 CONCLUSION: 1. Negative MRV Brain non contrast. Ward Line Insertion 04/24/18 00:00 CONCLUSION: Uncomplicated ultrasound and fluoroscopic guided Ward catheter placement as above. Head MRI 04/24/18 14:21 CONCLUSION: 1. Unremarkable MRI of the brain. Head MRA 04/24/18 14:21 CONCLUSION: 1. Negative MRA [place] ([place] [facility] [place]) non contrast. Physical Exam: GENERAL: Awake and alert, not in distress HEENT: [place] conjunctiva. No icterus. Moist mucosa. No thrush NECK: Not tender LUNGS: Clear breath sounds bilateral. HEART: Regular S1 and S2. No murmurs heard. ABDOMEN: Bowel sounds present, soft, with mild diffuse tenderness; scars C/W surgical history. No guarding or rebound EXTREMITIES: No clubbing, cyanosis or edema. SKIN: No generalized rash. Cool and dry NEUROLOGIC: Grossly non-focal PSYCH: Calm and cooperative. LINE: Ward cath R site ok, no drainage or tenderness Assessment and Plan - Plan Impression Possible sepsis, better Recurrent UTI, UA with pyuria, but UC negative - repeat UA better - previous UC with E coli ESBL+ Weakness, leukocytosis, possibly due to sepsis, better Leukocytosis, higher today Thrombocytosis, up to 1004K - for BM biopsy S/P renal transplant Chronic abdominal pain, nausea, hx gastroparesis, has had multiple and extensive abdominal surgeries Renal insufficiency, back to baseline HAMLIN, work-up negative, better after decadron Recommendation Continue INvanz Follow CBC Monitor for recurrent symptoms of vaginitis, and retreat if with symptoms again Monitor progress For BM biopsy - workup for her thrombocytosis She has had recurrent UTI, and will likely need further evaluate if she keeps getting infected D/W RN
--- NOTE | 2018-04-26 13:15 | P.PNIM ---
Subjective Interval history: Patient reports she is feeling ok today. Platelets over a million. Will have bone marrow biopsy today. Physical Exam Vital signs: Vital Signs 04/25/18 13:00 04/25/18 14:00 04/25/18 15:00 Temperature Pulse Rate 77 75 75 Respiratory Rate Blood Pressure Pulse Oximetry 04/25/18 15:51 04/25/18 15:53 04/25/18 17:00 Temperature 98 F Pulse Rate 72 76 76 Respiratory Rate 14 Blood Pressure 120/67 Pulse Oximetry 96 04/25/18 18:00 04/25/18 19:00 04/25/18 20:00 Temperature 98.2 F Pulse Rate 76 76 70 Respiratory Rate 16 Blood Pressure 144/79 H Pulse Oximetry 97 04/25/18 21:00 04/25/18 22:00 04/25/18 23:00 Temperature 98.3 F Pulse Rate 72 72 72 Respiratory Rate 16 Blood Pressure 137/73 Pulse Oximetry 98 04/26/18 00:00 04/26/18 01:00 04/26/18 02:00 Temperature Pulse Rate 73 68 72 Respiratory Rate Blood Pressure Pulse Oximetry 04/26/18 03:00 04/26/18 04:00 04/26/18 05:00 Temperature 98.8 F Pulse Rate 83 72 72 Respiratory Rate 16 Blood Pressure 126/67 Pulse Oximetry 96 04/26/18 06:00 04/26/18 07:00 04/26/18 08:00 Temperature 92 F L Pulse Rate 74 76 80 Respiratory Rate 14 Blood Pressure 126/69 Pulse Oximetry 04/26/18 09:00 04/26/18 10:00 04/26/18 11:00 Temperature 98.3 F Pulse Rate 79 77 75 Respiratory Rate 18 Blood Pressure 127/71 Pulse Oximetry 98 04/26/18 11:41 Temperature Pulse Rate 79 Respiratory Rate Blood Pressure Pulse Oximetry Intake & Output 04/25/18 04/26/18 04/26/18 18:59 06:59 18:59 Intake Total 2760 / 2760 2480 / 2480 Output Total 2350 / 2350 1800 / 1800 Balance 410 / 410 680 / 680 Weight 63.5 kg Intake: IV 1200 / 1200 1999 / 1999 NS Inj 1,000 ML @ 100 mls/hr IV 1000 / 1000 1999 / 1999 .CONT .Q10H [facility] Rx#:[id number] INVanz Inj 1,000 MG In NS Inj 100 / 100 100 ML @ 200 mls/hr IV.SIG Q24H [facility] Rx#:[id number] Merrem Inj 1,000 MG In NS Inj 100 / 100 100 ML @ 200 mls/hr IV.SIG Q12H [facility] Rx#:[id number] Oral 1560 / 1560 480 / 480 Output: Urine 2350 / 2350 1800 / 1800 Other: Date of Last Bowel Movement 04/25/18 04/25/18 04/25/18 # Bowel Movements 3 Narrative: GENERAL: Patient appears older than stated age. CARDIOVASCULAR: Normal rate and regular rhythm without murmurs, gallops, or rubs. RESPIRATORY: Good respiratory efforts. Breath sounds equal and clear to auscultation bilaterally. GASTROINTESTINAL: Abdomen soft, mild tenderness to palpation in the midepigastric region. Normal active bowel sounds MUSCULOSKELETAL: Extremities without cyanosis, or edema. NEURO: Alert & Oriented x4 to person, place, time, situation. Moves all ext x4 PSYCH: Appropriate mood and affect. Results - Labs CBC & Chem 7: 04/26/18 08:15 04/26/18 08:15 Laboratory Results - last 24 hr 04/23/18 04/25/18 04/25/18 18:27 08:20 15:21 WBC RBC Hgb Hct MCV MCH MCHC RDW Plt Count MPV Prelim Diff (Auto) Neut % (Auto) Lymph % (Auto) Bond % (Auto) Eos % (Auto) Baso % (Auto) Neut # (Auto) Lymph # (Auto) Bond # (Auto) Eos # (Auto) Baso # (Auto) WBC Differential Differential Comment PT INR Sodium Potassium Chloride Carbon Dioxide Anion Gap BUN Creatinine Estimated GFR POC Glucose 268 H Random Glucose Calcium Phosphorus Magnesium Urine Color Urine Clarity Urine pH Ur Specific [place] Urine Protein Urine Glucose (UA) Urine Ketones Urine Occult Blood Urine Nitrate Urine Bilirubin Urine Urobilinogen Ur Leukocyte Esterase Urine RBC Urine WBC Ur Squamous Epith Cells Urine Mucus Ur Microscopic Review Tacrolimus 13.4 Immunophenotypic Anal 04/25/18 04/25/18 04/25/18 16:45 19:25 Unknown WBC RBC Hgb Hct MCV MCH MCHC RDW Plt Count MPV Prelim Diff (Auto) Neut % (Auto) Lymph % (Auto) Bond % (Auto) Eos % (Auto) Baso % (Auto) Neut # (Auto) Lymph # (Auto) Bond # (Auto) Eos # (Auto) Baso # (Auto) WBC Differential Differential Comment PT INR Sodium Potassium Chloride Carbon Dioxide Anion Gap BUN Creatinine Estimated GFR POC Glucose 297 H 301 H Random Glucose Calcium Phosphorus Magnesium Urine Color Straw Urine Clarity Clear Urine pH 5.0 Ur Specific [place] 1.001 L Urine Protein Negative Urine Glucose (UA) 500 or greater Urine Ketones Negative Urine Occult Blood Negative Urine Nitrate Negative Urine Bilirubin Negative Urine Urobilinogen Less than 2 Ur Leukocyte Esterase Negative Urine RBC Less than 1 Urine WBC 1 Ur Squamous Epith Cells <1 Urine Mucus Few H Ur Microscopic Review Not Reportable Tacrolimus Immunophenotypic Anal 04/26/18 04/26/18 04/26/18 08:04 08:15 08:15 WBC 11.1 H D RBC 3.04 L Hgb 8.5 L Hct 26.6 L MCV 87.4 MCH 27.9 MCHC 31.9 L RDW 16.6 Plt Count 1004 H MPV 8.2 Prelim Diff (Auto) Slide review pending Neut % (Auto) 75.6 H Lymph % (Auto) 7.9 L [place] % (Auto) 12.2 H Eos % (Auto) 3.9 Baso % (Auto) 0.4 Neut # (Auto) 8.4 H Lymph # (Auto) 0.9 L [place] # (Auto) 1.4 H Eos # (Auto) 0.4 Baso # (Auto) 0.0 WBC Differential . Differential Comment . PT INR Sodium 138 Potassium 4.9 Chloride 106 Carbon Dioxide 24.2 Anion Gap 8 BUN 15 Creatinine 1.11 H Estimated GFR 51 L POC Glucose 143 H Random Glucose 132 H D Calcium 9.2 Phosphorus 1.9 L Magnesium 1.4 L Urine Color Urine Clarity Urine pH Ur Specific [place] Urine Protein Urine Glucose (UA) Urine Ketones Urine Occult Blood Urine Nitrate Urine Bilirubin Urine Urobilinogen Ur Leukocyte Esterase Urine RBC Urine WBC Ur Squamous Epith Cells Urine Mucus Ur Microscopic Review Tacrolimus Immunophenotypic Anal 04/26/18 04/26/18 04/26/18 08:15 11:20 11:30 WBC RBC Hgb Hct MCV MCH MCHC RDW Plt Count MPV Prelim Diff (Auto) Neut % (Auto) Lymph % (Auto) Bond % (Auto) Eos % (Auto) Baso % (Auto) Neut # (Auto) Lymph # (Auto) Bond # (Auto) Eos # (Auto) Baso # (Auto) WBC Differential Differential Comment PT 10.0 INR 1.0 Sodium Potassium Chloride Carbon Dioxide Anion Gap BUN Creatinine Estimated GFR POC Glucose 289 H Random Glucose Calcium Phosphorus Magnesium Urine Color Urine Clarity Urine pH Ur Specific [place] Urine Protein Urine Glucose (UA) Urine Ketones Urine Occult Blood Urine Nitrate Urine Bilirubin Urine Urobilinogen Ur Leukocyte Esterase Urine RBC Urine WBC Ur Squamous Epith Cells Urine Mucus Ur Microscopic Review Tacrolimus 14.9 Immunophenotypic Anal Microbiology 04/23/18 00:43 Blood - Peripheral Aerobic Blood Culture - Preliminary No growth in 3 days 04/23/18 00:43 Blood - Peripheral Anaerobic Blood Culture - Preliminary No growth in 3 days 04/23/18 00:35 Blood - Peripheral Aerobic Blood Culture - Preliminary No growth in 3 days 04/23/18 00:35 Blood - Peripheral Anaerobic Blood Culture - Preliminary No growth in 3 days Assessment and Plan - Plan 57-year-old female with history of numerous abdominal surgeries, gastroparesis, renal transplant who presents to the emergency department due to dehydration, nausea and dry heaves. Patient was recently discharged home on Augmentin for UTI. Patient complains of significant epigastric pain and reflux symptoms despite taking potent PPI. Patient found to have sepsis secondary to UTI. Transplant surgery, nephrology, GI, as well as infectious disease following. Sepsis (On admission WBC 17.9K, heart rate 97, suspected infection UTI). Resolved. - On Ertapenem per infectious disease. WBC went down but slightly up again. She did receive Decadron a couple of days ago - All cultures negative so far. - Further plans per ID. Abdominal pain: History of kidney transplant History of polycystic kidney disease Acute on Chronic kidney disease -Renal functions better today. -On IVF. Ward Catheter per transplant/Nephrology service. Continue normal saline at 100 cc/h. -Dilaudid PO ad IV as needed for her chronic pain. -Benadryl as needed for pruritus. -KUB unremarkable. -CT of the abdomen is unremarkable compared to previous imaging. -Case previously discussed with transplant service, Dr. Patel. - Appreciate GI input. Patient started on Rifaximin - Appreciate Palliative care input and recommendations. - Patient refusing PO pain medications and only using IV Dilaudid. She understand that she will not be given Narcotics on discharge. She was advised to follow up with pain management outpatient. Persistent headache: - Patient reports persistent headache and states only IV Dilaudid helps with her headache. - Appreciate assistance from Neurology. Patient was given a dose of Decadron. Headache resolved. She was offered Elavil but refused. Thrombocytosis: Has been chronic. Etiology unclear. Worsening -Appreciate Hematology/Oncology following. Workup ongoing. Multiple labs pending - Bone marrow biopsy today - MERRY RN, Hematology will be notified of the change in Platelets. Previously was considering Hydroxyurea. Severe GERD Gastroparesis -Protonix 40 mg p.o. twice daily. -Can consider Reglan PRN - GI consulted. Diabetes mellitus -Blood glucose labile. Levemir 10 units BID and medium sliding scale insulin. Cautious with insulin as her PO intake is highly variable and she has history of Hypoglycemia. Full code. Lovenox. Discharge Planning: Ongoing treatment to ensure renal functions remain ale. Ongoing workup for thrombocytosis. Will need clearance from ID, transplant service, Hematology prior to DC. Continue current pain medications until discharge. Encourage the patient to transition to PO as tolerated.
[2018-04-26] MEDS ORDERED: Magnesium Sulfate Inj 2 GM in Sodium Chlor 0.9% Inj 96 ML IV.SIG ONE (14:00)
[2018-04-26] MEDS ORDERED: Sodium Glycerophosphate Inj 15 MMOL in Sodium Chlor 0.9% Inj 150 ML IV.SIG ONE (14:00)
--- NOTE | 2018-04-26 14:21 | P.PNPAL ---
Reason for Visit Reason for visit: a. To assist with evaluation and management of symptoms including: pain, pruritus, indigestion/belching. b. To assist medical decision maker(s) with: better understanding of current medical conditions; weighing benefits/burdens of medical treatment options; making medical treatment decisions. . Subjective Subjective/Interval History: Patient seen in her room. Patient resting in bed in no acute distress. Alert and oriented x self, place and situation. Endorsing epigastric pain that is sharp and well localized, exacerbated with meals and alleviated with pain medication. Currently rated at 4/10, her pain goal is 4/10. Denies right flank pain at this time. Hydromorphone IV and p.o. available as needed. In the past 24 hours, patient has required 1 dose of hydromorphone 4 mg and 5 doses of hydromorphone 2 mg IV with good effect. Patient reports that her pain has much improved since yesterday, she is currently n.p.o. pending bone marrow biopsy tomorrow. Patient verbalized that she would like to continue Dilaudid IV up until discharge time as she feels that is more effective than oral dose. Reviewed with patient that oral hydromorphone is preferred given anticipation to home discharge. Persistent generalized pruritus, mild erythema noted to her anterior chest and bilateral arms. Currently on Vistaril which she feels is effective. Persistent belching, reports that Tums are effective but were discontinued yesterday given high calcium, Tums reinstated as of today. No nausea reported during my visit. Patient reports that she is to follow-up with [facility], currently exploring total visceral transplantation. Reports that she wishes to arrange date oral diet after bone marrow biopsy, declines TPN. No family at bedside, patient receptive to palliative care follow-ups. . Advance Directives Health Care Surrogate: Completed, but not made available Health Care Surrogate Name and Number: Patient indicates that her son is designated as her healthcare surrogate. Objective Vital Signs: Vital Signs 04/25/18 15:00 04/25/18 15:51 04/25/18 15:53 Temperature 98 F Pulse Rate 75 72 76 Respiratory Rate 14 Blood Pressure 120/67 Pulse Oximetry 96 04/25/18 17:00 04/25/18 18:00 04/25/18 19:00 Temperature 98.2 F Pulse Rate 76 76 76 Respiratory Rate 16 Blood Pressure 144/79 H Pulse Oximetry 97 04/25/18 20:00 04/25/18 21:00 04/25/18 22:00 Temperature Pulse Rate 70 72 72 Respiratory Rate Blood Pressure Pulse Oximetry 04/25/18 23:00 04/26/18 00:00 04/26/18 01:00 Temperature 98.3 F Pulse Rate 72 73 68 Respiratory Rate 16 Blood Pressure 137/73 Pulse Oximetry 98 04/26/18 02:00 04/26/18 03:00 04/26/18 04:00 Temperature 98.8 F Pulse Rate 72 83 72 Respiratory Rate 16 Blood Pressure 126/67 Pulse Oximetry 96 04/26/18 05:00 04/26/18 06:00 04/26/18 07:00 Temperature 92 F L Pulse Rate 72 74 76 Respiratory Rate 14 Blood Pressure 126/69 Pulse Oximetry 04/26/18 08:00 04/26/18 09:00 04/26/18 10:00 Temperature Pulse Rate 80 79 77 Respiratory Rate Blood Pressure Pulse Oximetry 04/26/18 11:00 04/26/18 11:41 04/26/18 13:00 Temperature 98.3 F Pulse Rate 75 79 80 Respiratory Rate 18 Blood Pressure 127/71 Pulse Oximetry 98 04/26/18 13:55 Temperature Pulse Rate 68 Respiratory Rate Blood Pressure Pulse Oximetry Intake & Output 04/25/18 04/26/18 04/26/18 18:59 06:59 18:59 Intake Total 2760 / 2760 2480 / 2480 Output Total 2350 / 2350 1800 / 1800 Balance 410 / 410 680 / 680 Weight 63.5 kg Intake: IV 1200 / 1200 1999 / 1999 NS Inj 1,000 ML @ 100 mls/hr IV 1000 / 1000 1999 .CONT .Q10H RONALD Rx#:[id number] INVanz Inj 1,000 MG In NS Inj 100 / 100 100 ML @ 200 mls/hr IV.SIG Q24H RONALD Rx#:[id number] Merrem Inj 1,000 MG In NS Inj 100 / 100 100 ML @ 200 mls/hr IV.SIG Q12H RONALD Rx#:[id number] Oral 1560 / 1560 480 / 480 Output: Urine 2350 / 2350 1800 / 1800 Other: Date of Last Bowel Movement 04/25/18 04/25/18 04/25/18 # Bowel Movements 3 Physical Exam: CONSTITUTIONAL/GENERAL: This is a pail, chronically ill-appearing female TUBES/LINES/DRAINS: Subclavian IV access rt chest. SKIN: No jaundice or lesions. pale. No wounds seen anteriorly. skin warm/dry. Mild erythema to anterior chest and bilateral arms. HEAD: Atraumatic. Normocephalic. EYES: Pupils equal and round and reactive. Extraocular motions intact. No scleral icterus. No injection or drainage. Fundi not examined. ENT: Hearing grossly normal. Nose without bleeding or purulent drainage. Throat without visible erythema, exudates, masses, or lesions. NECK: Trachea midline. Supple, nontender. CARDIOVASCULAR: Regular rate and rhythm . No JVD. Peripheral pulses symmetric. 1 + edema bilateral lower legs,feet. 1+ edema hands/lower arms. RESPIRATORY/CHEST: Symmetric, unlabored respirations. On room air. Clear to auscultation. Breath sounds equal bilaterally. GASTROINTESTINAL: Abdomen soft, mildly tender, nondistended. No palpable masses. No guarding. Bowel sounds present. GENITOURINARY: Without palpable bladder distension. MUSCULOSKELETAL: Extremities without clubbing, cyanosis. No joint tenderness or effusion noted. No mottling or clubbing.1+ edema bilateral lower legs, feet. 1+ edema hands/lower arms. NEUROLOGICAL: Awake and alert. Oriented x3. Motor and sensory grossly within normal limits. Follows commands. Cognitively sharp. Moves all 4 extremities. PSYCHIATRIC: No obvious anxiety/depression. no apparent hallucinations or other psychotic thought process. Pleasant and cooperative. Diagnostic Tests Laboratory: Laboratory Results - last 72 hr 04/23/18 04/23/18 04/23/18 15:56 18:27 18:27 WBC RBC Hgb Hct MCV MCH MCHC RDW Plt Count MPV Prelim Diff (Auto) Neut % (Auto) Lymph % (Auto) [place] % (Auto) Eos % (Auto) Baso % (Auto) Neut # (Auto) Lymph # (Auto) [place] # (Auto) Eos # (Auto) Baso # (Auto) WBC Differential Differential Comment ESR PT INR APTT 29.4 Sodium Potassium Chloride Carbon Dioxide Anion Gap BUN Creatinine Estimated GFR POC Glucose 230 H Random Glucose Calcium Phosphorus Magnesium Vitamin B12 Urine Color Urine Clarity Urine pH Ur Specific [place] Urine Protein Urine Glucose (UA) Urine Ketones Urine Occult Blood Urine Nitrate Urine Bilirubin Urine Urobilinogen Ur Leukocyte Esterase Urine RBC Urine WBC Ur Squamous Epith Cells Urine Mucus Ur Microscopic Review Tacrolimus Immunophenotypic Anal 04/23/18 04/24/18 04/24/18 21:52 07:59 09:55 WBC RBC Hgb Hct MCV MCH MCHC RDW Plt Count MPV Prelim Diff (Auto) Neut % (Auto) Lymph % (Auto) [place] % (Auto) Eos % (Auto) Baso % (Auto) Neut # (Auto) Lymph # (Auto) [place] # (Auto) Eos # (Auto) Baso # (Auto) WBC Differential Differential Comment ESR PT INR APTT Sodium Potassium Chloride Carbon Dioxide Anion Gap BUN Creatinine Estimated GFR POC Glucose 189 H 267 H Random Glucose Calcium Phosphorus Cancelled Magnesium Vitamin B12 Urine Color Urine Clarity Urine pH Ur Specific [place] Urine Protein Urine Glucose (UA) Urine Ketones Urine Occult Blood Urine Nitrate Urine Bilirubin Urine Urobilinogen Ur Leukocyte Esterase Urine RBC Urine WBC Ur Squamous Epith Cells Urine Mucus Ur Microscopic Review Tacrolimus Immunophenotypic Anal 04/24/18 04/24/18 04/24/18 09:55 09:55 09:55 WBC 8.6 RBC 2.98 L Hgb 8.2 L Hct 26.2 L MCV 87.9 MCH 27.6 MCHC 31.4 L RDW 17.0 Plt Count 862 H MPV 9.1 Prelim Diff (Auto) Neut % (Auto) 80.3 H Lymph % (Auto) 3.3 L [place] % (Auto) 12.3 H Eos % (Auto) 3.6 Baso % (Auto) 0.5 Neut # (Auto) 6.9 Lymph # (Auto) 0.3 L [place] # (Auto) 1.1 H Eos # (Auto) 0.3 Baso # (Auto) 0.0 WBC Differential . Differential Comment Auto diff final ESR PT INR APTT Sodium Potassium Chloride Carbon Dioxide Anion Gap BUN Creatinine Estimated GFR POC Glucose Random Glucose Calcium Phosphorus Magnesium Cancelled Vitamin B12 Urine Color Urine Clarity Urine pH Ur Specific [place] Urine Protein Urine Glucose (UA) Urine Ketones Urine Occult Blood Urine Nitrate Urine Bilirubin Urine Urobilinogen Ur Leukocyte Esterase Urine RBC Urine WBC Ur Squamous Epith Cells Urine Mucus Ur Microscopic Review Tacrolimus 8.8 Immunophenotypic Anal 04/24/18 04/24/18 04/24/18 09:55 09:55 09:55 WBC RBC Hgb Hct MCV MCH MCHC RDW Plt Count MPV Prelim Diff (Auto) Neut % (Auto) Lymph % (Auto) [place] % (Auto) Eos % (Auto) Baso % (Auto) Neut # (Auto) Lymph # (Auto) [place] # (Auto) Eos # (Auto) Baso # (Auto) WBC Differential Differential Comment ESR 66 H PT INR APTT Sodium 135 L Potassium 4.9 Chloride 106 Carbon Dioxide 23.5 Anion Gap 6 BUN 12 Creatinine 1.01 H Estimated GFR 56 L POC Glucose Random Glucose 243 H D Calcium 8.9 Phosphorus 2.6 Magnesium 1.5 Vitamin B12 318 Urine Color Urine Clarity Urine pH Ur Specific [place] Urine Protein Urine Glucose (UA) Urine Ketones Urine Occult Blood Urine Nitrate Urine Bilirubin Urine Urobilinogen Ur Leukocyte Esterase Urine RBC Urine WBC Ur Squamous Epith Cells Urine Mucus Ur Microscopic Review Tacrolimus Immunophenotypic Anal 04/24/18 04/24/18 04/24/18 11:06 15:07 21:39 WBC RBC Hgb Hct MCV MCH MCHC RDW Plt Count MPV Prelim Diff (Auto) Neut % (Auto) Lymph % (Auto) [place] % (Auto) Eos % (Auto) Baso % (Auto) Neut # (Auto) Lymph # (Auto) [place] # (Auto) Eos # (Auto) Baso # (Auto) WBC Differential Differential Comment ESR PT INR APTT Sodium Potassium Chloride Carbon Dioxide Anion Gap BUN Creatinine Estimated GFR POC Glucose 246 H 172 H 459 H* Random Glucose Calcium Phosphorus Magnesium Vitamin B12 Urine Color Urine Clarity Urine pH Ur Specific [place] Urine Protein Urine Glucose (UA) Urine Ketones Urine Occult Blood Urine Nitrate Urine Bilirubin Urine Urobilinogen Ur Leukocyte Esterase Urine RBC Urine WBC Ur Squamous Epith Cells Urine Mucus Ur Microscopic Review Tacrolimus Immunophenotypic Anal 04/25/18 04/25/18 04/25/18 08:06 08:20 08:20 WBC 6.7 RBC 3.01 L Hgb 8.5 L Hct 26.7 L MCV 88.7 MCH 28.4 MCHC 32.0 RDW 17.3 H Plt Count 949 H MPV 8.9 Prelim Diff (Auto) Neut % (Auto) 73.5 H Lymph % (Auto) 12.4 [place] % (Auto) 13.1 H Eos % (Auto) 0.4 Baso % (Auto) 0.6 Neut # (Auto) 4.9 Lymph # (Auto) 0.8 L [place] # (Auto) 0.9 Eos # (Auto) 0.0 Baso # (Auto) 0.0 WBC Differential . Differential Comment Auto diff final ESR PT INR APTT Sodium 133 L Potassium 5.7 H D Chloride 102 Carbon Dioxide 22.5 Anion Gap 9 BUN 18 Creatinine 1.36 H Estimated GFR 40 L POC Glucose 433 H Random Glucose 428 H D Calcium 9.2 Phosphorus 2.8 Magnesium 1.8 Vitamin B12 Urine Color Urine Clarity Urine pH Ur Specific [place] Urine Protein Urine Glucose (UA) Urine Ketones Urine Occult Blood Urine Nitrate Urine Bilirubin Urine Urobilinogen Ur Leukocyte Esterase Urine RBC Urine WBC Ur Squamous Epith Cells Urine Mucus Ur Microscopic Review Tacrolimus Immunophenotypic Anal 04/25/18 04/25/18 04/25/18 08:20 11:19 11:20 WBC RBC Hgb Hct MCV MCH MCHC RDW Plt Count MPV Prelim Diff (Auto) Neut % (Auto) Lymph % (Auto) [place] % (Auto) Eos % (Auto) Baso % (Auto) Neut # (Auto) Lymph # (Auto) [place] # (Auto) Eos # (Auto) Baso # (Auto) WBC Differential Differential Comment ESR PT INR APTT Sodium 131 L Potassium 5.3 H Chloride 101 Carbon Dioxide 24.8 Anion Gap 5 BUN 18 Creatinine 1.47 H Estimated GFR 37 L POC Glucose 423 H Random Glucose 417 H Calcium 8.8 Phosphorus Magnesium Vitamin B12 Urine Color Urine Clarity Urine pH Ur Specific [place] Urine Protein Urine Glucose (UA) Urine Ketones Urine Occult Blood Urine Nitrate Urine Bilirubin Urine Urobilinogen Ur Leukocyte Esterase Urine RBC Urine WBC Ur Squamous Epith Cells Urine Mucus Ur Microscopic Review Tacrolimus 13.4 Immunophenotypic Anal 04/25/18 04/25/18 04/25/18 15:21 16:45 19:25 WBC RBC Hgb Hct MCV MCH MCHC RDW Plt Count MPV Prelim Diff (Auto) Neut % (Auto) Lymph % (Auto) [place] % (Auto) Eos % (Auto) Baso % (Auto) Neut # (Auto) Lymph # (Auto) [place] # (Auto) Eos # (Auto) Baso # (Auto) WBC Differential Differential Comment ESR PT INR APTT Sodium Potassium Chloride Carbon Dioxide Anion Gap BUN Creatinine Estimated GFR POC Glucose 268 H 297 H 301 H Random Glucose Calcium Phosphorus Magnesium Vitamin B12 Urine Color Urine Clarity Urine pH Ur Specific [place] Urine Protein Urine Glucose (UA) Urine Ketones Urine Occult Blood Urine Nitrate Urine Bilirubin Urine Urobilinogen Ur Leukocyte Esterase Urine RBC Urine WBC Ur Squamous Epith Cells Urine Mucus Ur Microscopic Review Tacrolimus Immunophenotypic Anal 04/25/18 04/26/18 04/26/18 Unknown 08:04 08:15 WBC 11.1 H D RBC 3.04 L Hgb 8.5 L Hct 26.6 L MCV 87.4 MCH 27.9 MCHC 31.9 L RDW 16.6 Plt Count 1004 H MPV 8.2 Prelim Diff (Auto) Slide review pending Neut % (Auto) 75.6 H Lymph % (Auto) 7.9 L [place] % (Auto) 12.2 H Eos % (Auto) 3.9 Baso % (Auto) 0.4 Neut # (Auto) 8.4 H Lymph # (Auto) 0.9 L [place] # (Auto) 1.4 H Eos # (Auto) 0.4 Baso # (Auto) 0.0 WBC Differential . Differential Comment . ESR PT INR APTT Sodium Potassium Chloride Carbon Dioxide Anion Gap BUN Creatinine Estimated GFR POC Glucose 143 H Random Glucose Calcium Phosphorus Magnesium Vitamin B12 Urine Color Straw Urine Clarity Clear Urine pH 5.0 Ur Specific [place] 1.001 L Urine Protein Negative Urine Glucose (UA) 500 or greater Urine Ketones Negative Urine Occult Blood Negative Urine Nitrate Negative Urine Bilirubin Negative Urine Urobilinogen Less than 2 Ur Leukocyte Esterase Negative Urine RBC Less than 1 Urine WBC 1 Ur Squamous Epith Cells <1 Urine Mucus Few H Ur Microscopic Review Not Reportable Tacrolimus Immunophenotypic Anal 04/26/18 04/26/18 04/26/18 08:15 08:15 11:20 WBC RBC Hgb Hct MCV MCH MCHC RDW Plt Count MPV Prelim Diff (Auto) Neut % (Auto) Lymph % (Auto) [place] % (Auto) Eos % (Auto) Baso % (Auto) Neut # (Auto) Lymph # (Auto) [place] # (Auto) Eos # (Auto) Baso # (Auto) WBC Differential Differential Comment ESR PT INR APTT Sodium 138 Potassium 4.9 Chloride 106 Carbon Dioxide 24.2 Anion Gap 8 BUN 15 Creatinine 1.11 H Estimated GFR 51 L POC Glucose 289 H Random Glucose 132 H D Calcium 9.2 Phosphorus 1.9 L Magnesium 1.4 L Vitamin B12 Urine Color Urine Clarity Urine pH Ur Specific [place] Urine Protein Urine Glucose (UA) Urine Ketones Urine Occult Blood Urine Nitrate Urine Bilirubin Urine Urobilinogen Ur Leukocyte Esterase Urine RBC Urine WBC Ur Squamous Epith Cells Urine Mucus Ur Microscopic Review Tacrolimus 14.9 Immunophenotypic Anal 04/26/18 11:30 WBC RBC Hgb Hct MCV MCH MCHC RDW Plt Count MPV Prelim Diff (Auto) Neut % (Auto) Lymph % (Auto) [place] % (Auto) Eos % (Auto) Baso % (Auto) Neut # (Auto) Lymph # (Auto) [place] # (Auto) Eos # (Auto) Baso # (Auto) WBC Differential Differential Comment ESR PT 10.0 INR 1.0 APTT Sodium Potassium Chloride Carbon Dioxide Anion Gap BUN Creatinine Estimated GFR POC Glucose Random Glucose Calcium Phosphorus Magnesium Vitamin B12 Urine Color Urine Clarity Urine pH Ur Specific [place] Urine Protein Urine Glucose (UA) Urine Ketones Urine Occult Blood Urine Nitrate Urine Bilirubin Urine Urobilinogen Ur Leukocyte Esterase Urine RBC Urine WBC Ur Squamous Epith Cells Urine Mucus Ur Microscopic Review Tacrolimus Immunophenotypic Anal Result Diagrams: 04/26/18 08:15 04/26/18 08:15 Microbiology: Microbiology 04/23/18 00:43 Aerobic Blood Culture - Preliminary Blood - Peripheral No growth in 3 days Anaerobic Blood Culture - Preliminary No growth in 3 days 04/23/18 00:35 Aerobic Blood Culture - Preliminary Blood - Peripheral No growth in 3 days Anaerobic Blood Culture - Preliminary No growth in 3 days 04/22/18 09:50 Urine Culture - Final Clean Catch Urine No growth in 48 hours Assessment and Plan - Disease Oriented Problem List (1) Renal transplant recipient (2) Renal insufficiency (3) DM (diabetes mellitus) (4) Abdominal pain (5) Acute renal failure (6) Thrombocytopenia (7) Gastroparesis (8) Nausea (9) History of infection due to ESBL Escherichia coli (10) History of DVT (deep vein thrombosis) (11) Hx pulmonary embolism - Symptom Scale (1) Abdominal pain 0-10 Scale: 4 (2) Nausea 0-10 Scale: 0 (3) Itch of skin 0-10 Scale: 4 Pertinent Non-Medical Issues: Psychosocial: Originally from [place]. 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 though remains in close communication with her ex- who is supportive. Indicates that her son in [place] is designated as healthcare surrogate. Spiritual: Did not review today Legal:No legal issues. Patient currently alert, oriented and able to make her own decisions. She indicates that her son is designated as her healthcare surrogate. Ethical issues impacting care: No ethical/legal issues identified Important Contacts: Steven Bailey (Ex Spouse) [phone] Prognosis: This patient was admitted for dehydration, abdominal pain, possible UTI (though culture negative). She has complicated medical history having undergone many abdominal surgeries, and is status post kidney transplant June 2017. She has had ongoing issues with GI motility, short gut, TPN dependent -recently weaned off TPN on oral diet only. No infectious agents localized yet during this admission course. Continues to have ongoing abdominal pain, bowel issues. Given complicated medical history she does remain high risk for ongoing complications and potential clinical setbacks however at this time she is currently stable and she should be able to discharge home to her prior status. Code Status: Full Code Plan: * Legal decision maker: Patient alert, oriented and appropriate. Able to make her own decisions. She indicates her son in [place] is designated as her primary healthcare surrogate, however her ex- who is local she wishes to be first contacted as he is local. * Goals: goals aggressive. Pt wishing for better pain control, improved quality of life. Hopeful to return home once medically stable. Patient to follow-up with the [facility], considering total visceral transplant. * CODE STATUS: full code * SYMPTOMS: --Pain- Endorsing epigastric pain that is sharp and well localized, exacerbated with meals and alleviated with pain medication. Currently rated at 4/10, her pain goal is 4/10. Denies right flank pain at this time. Hydromorphone IV and p.o. available as needed. In the past 24 hours, patient has required 1 dose of hydromorphone 4 mg and 5 doses of hydromorphone 2 mg IV with good effect. Patient reports that her pain has much improved since yesterday, she is currently n.p.o. pending bone marrow biopsy tomorrow. Patient verbalized concerns of inappropriate oral opioid absorption given underlying GI issues, explored other routes such as fentanyl TD. Patient declined any other routes verbalizing "I don't think I will be needing long-term pain medication". Patient verbalized that she would like to continue Dilaudid IV up until discharge time as she feels that is more effective than oral dose. Reviewed with patient that oral hydromorphone is preferred given anticipation to home discharge. No changes in current pain regimen recommended at this time, patient in agreement with current plan. LBM today. --Generalized pruritus- c/o generalized persistent chronic itching associated with opiate use. Mild erythema noted to her anterior chest and bilateral arms. Currently on Vistaril which she feels is effective. --n/v -belching -intermittent, chronic. Multiple complex ongoing GI issues. GI following, IBS vs medications, gastroparesis. Currently on Reglan 5mg AC and HS. Plan to resume small feedings after bone marrow biopsy. reports that Tums are effective but were discontinued yesterday given high calcium, Tums reinstated as of today. No nausea reported during my visit. * Palliative care will continue to follow during hospital course as condition evolves, to assist patient/decision-maker with understanding of medical conditions, weighing benefits/burdens of treatment options, for clarification of goals of treatment. Additionally will assist with any symptoms of palliative concern Time Spent Total Floor Time (mins): 28 >50% Time in Counseling or Coordination of Care: Yes
[2018-04-26] MEDS ORDERED: Sodium Phosphate Inj 15 MMOL in Sodium Chlor 0.9% Inj 150 ML IV.SIG ONE (15:00)
[2018-04-26] MEDS ORDERED: Lidocaine 1%/Epinephrine 1:100,000 Inj 50 ML Vial ONE (15:14)
[2018-04-26] MEDS ORDERED: HYDROmorphone PF Inj 2 MG/ML Vial ONE (16:29)
--- NOTE | 2018-04-26 16:38 | P.RAD ---
Post CT Procedure Prog Note - Pre Procedure Diagnosis (1) SIRS (systemic inflammatory response syndrome) - Post Procedure Diagnosis (1) SIRS (systemic inflammatory response syndrome) - Procedure Information Procedure Date: 04/26/18 Supervising Radiologist: Abraham Dai MD Estimated blood loss (mL): 5 Anesthesia: Local, Conscious Sedation - Plan of Activity Patient to Unit: [facility]OP[facility] Patient condition: Good Additional Comments: Bone marrow biopsy completed without difficulty. Full dictated report to follow See PACS Report for procedural detail/treatment.
[2018-04-26 17:45] LABS: Iron Stain Bone Marrow Done
[2018-04-27] MEDS: Sod Chloride 0.9% Inj 1,000 ML IV.CONT SCH ×2 (01:02→13:10)
[2018-04-27] MEDS: HYDROmorphone PF Inj 2 MG/ML Vial IV.PUSH PRN ×4 (01:02→13:02)
[2018-04-27 03:19] LABS: Baso % (Auto) 0.6 % (0.0-2.0); Eos # (Auto) 0.2 th/mm3 (0.0-0.4); Hematocrit 24.7 % (35.0-46.0); Hemoglobin 7.8 gm/dL (11.6-15.3); Lymph # (Auto) 0.8 th/mm3 (1.0-4.8); Lymph % (Auto) 11.8 % (9.0-44.0); Mean Corpuscular HGB Conc 31.5 % (32.0-36.0); Mean Corpuscular Hemoglobin 27.5 pg (27.0-34.0); Mean Corpuscular Volume 87.4 fL (80.0-100.0); Mono # (Auto) 0.9 th/mm3 (0.0-0.9); Mono % (Auto) 13.9 % (0.0-8.0); Neut # (Auto) 4.8 th/mm3 (1.8-7.7); Neut % (Auto) 70.7 % (16.0-70.0); Platelet Count 948 th/mm3 (150-450); Red Blood Count 2.83 mil/mm3 (4.00-5.30); Red Cell Distribution Width 16.8 % (11.6-17.2); White Blood Count 6.8 th/mm3 (4.0-11.0)
[2018-04-27 03:34] LABS: Calcium 8.4 mg/dL (8.5-10.1); Magnesium 1.6 mg/dL (1.5-2.5); Phosphorus 2.6 mg/dL (2.5-4.9); Potassium 4.6 meq/L (3.5-5.1)
[2018-04-27] MEDS: Metoclopramide 10 MG Tablet PO SCH ×2 (08:40→13:02)
[2018-04-27] MEDS: predniSONE 10 MG Tablet PO SCH (08:40)
[2018-04-27] MEDS: Carvedilol 12.5 MG Tablet PO SCH (08:41)
[2018-04-27] MEDS: Heparin Central Flush 100 UNIT/ML 5 ML Vial IV.FLUSH SCH (08:41)
[2018-04-27] MEDS: Insulin NovoLOG Aspart Correctional Sugar Inj SQ SCH ×3 (08:41→17:07)
[2018-04-27] MEDS: Insulin Detemir Inj 1,000 UNIT/10 ML Vial SQ SCH (08:42)
--- NOTE | 2018-04-27 09:07 | CT ---
EXAM DATE: 04/26/2018 5:59 PM EDT AGE/SEX: 57 years / Female INDICATIONS: Evaluate for myelproliferative Neoplasm CLINICAL DATA: This is the patient's initial encounter. Patient reports that signs and symptoms have been present for 1 day and indicates a pain score of 3/10. MEDICAL/SURGICAL HISTORY: Gastroparesis. Diabetes. Renal failure Splenectomy. Renal transplan t pancreatectomy colectomy COMPARISON: No prior exams available for comparison. SEDATION TIME (min): BIOPSY SITE: Left bone marrow MEDICATION(S): 5mg midazolam (Versed) IV 3mg hydromorphone (Dilaudid) IV DEVICE(S): 11 gauge On-Control needle One core specimen(s) sent to the laboratory for pathologic evaluation. PROCEDURE: CT guided Left bone marrow biopsy Conscious sedation with continuous EKG and oximetry monitoring. Prior to the procedure informed consent was obtained. Any appropriate prior imaging studies were rev iewed. Using automated exposure control and adjustment of the mA and/or kV according to patient size , radiation dose was kept as low as reasonably achievable to obtain optimal diagnostic quality images . DICOM format image data is available electronically for review and comparison. The site was prepped in a sterile fashion. Full sterile technique was used, including cap, mask, charles rile gloves and gown and a large sterile sheet. Hand hygiene and 2% chlorhexidine and/or betadine/al cohol prep was utilized per protocol for cutaneous antisepsis. The skin and subcutaneous tissues wer e infiltrated with local anesthetic solution. With CT guidance the previously identified target was localized. Biopsy was performed using the presc ribed needle as above. Following biopsy marrow aspiration was performed with repeat puncture. [place] te hemostasis was obtained with compression at the puncture site. Follow-up CT scan reveals no hemorrhage. Conscious sedation was performed with the prescribed dosages and duration as above in the presence of an independent trained radiology nurse to assist in the monitoring of the patient. EKG and oximetry remained stable throughout the procedure. The patient tolerated the procedure well and there were no complications. The patient was sent to Radiology Outpatient Unit in stable condition. CONCLUSION: 1. Uncomplicated CT guided bone marrow aspirate. 2. Uncomplicated CT guided bone marrow biopsy. Electronically signed by: Abraham Dai MD 04/27/2018 9:06 AM EDT
[2018-04-27 09:58] VITALS: RESP 18
--- NOTE | 2018-04-27 13:52 | P.DCO ---
Post Hospital Infusion Therapy - Infusion Therapy Location of Infusion Therapy: Home Health Care IV Infusion Order - Patient Information Patient Weight: 60.5 kg - Diagnosis (1) UTI due to extended-spectrum beta lactamase (ESBL) producing Escherichia coli Code(s): N39.0 - Urinary tract infection, site not specified; B96.29 - Other Escherichia coli [E. coli] as the cause of diseases classified elsewhere; Z16.12 - Extended spectrum beta lactamase (ESBL) resistance - Administer Medication Ertapenem Dose: 1 gram IV Directions: q 24 hours Stop Treatment: 05/10/18 - Additional Information Venous Access: Tunneled Catheter Additional Instructions: [x] Peripheral flush and dressing changes per protocol [x] Implanted port and central sanding line operator: * Implanted port: 10 ml Normal Saline followed by 5 ml Heparin 100 units/ml Heparin flush after each use and monthly to maintain. [] May leave port accessed during therapy. [] May leave peripheral site accessed for duration of therapy. [x] If patient has SOB or respiratory distress, check oxygen saturation. If less than 90% or clinical signs of respiratory distress, administer oxygen at 2 L/min. via nasal cannula and notify physician. [x] Anaphylaxis/Reaction orders: * Stop infusion. * Keep IV line open with saline flush. * Notify physician. * Monitor vital signs every 15 minutes until symptoms resolve. * Check Oxygen saturation; Oxygen at 2 L/min. via nasal cannula if less than 90% or clinical signs of respiratory distress. * Administer diphenhydramine (Benadryl) 25 mg IV STAT, (unless patient has received as pre-med). May repeat once, if necessary. * Solu-Cortef 250 mg IVP over 30-60 seconds, use 100 mg vials for each dissolution. * Epinephrine (1mg/1 ml) 0.3 mg subcutaneously or IVP now with any signs of respiratory distress. * Check with physician for new additional pre-med orders if patient is re- challenged or re-treated. [x] May remove PICC line when treatment complete, after confirming with Physician. [x] If the patient is admitted to the hospital, the ED, or transferred via [facility] , complete transfer form including medication reconciliation order sheet. Weekly Labs: CBC w/diff, Creatinine (labs every Wednesday) - Patient Information Allergies metronidazole [From Flagyl] Allergy (Mild, Verified 04/22/18 16:51) Swelling of the Eye oxycodone Allergy (Mild, Verified 04/22/18 16:52) Itching, Generalized oxytetracycline [From Terramycin] Allergy (Mild, Verified 03/27/18 18:27) Hives fentanyl Allergy (Verified 04/05/18 17:07) Edema filgrastim [From Neupogen] Allergy (Verified 04/05/18 10:48) Anaphylaxis
--- NOTE | 2018-04-27 14:50 | P.DCO ---
- Physical Therapy Order: Evaluate and treat, Improve ambulation, Strength and gait training - Home Health Nursing Order: Medical education, Signs/symptoms of disease process, Medication education-adverse effect, Nursing assessment with vital signs, IV medication administration - Case Management Consult No - Certification I have seen patient Moni Bailey on 04/27/18. My clinical findings support the need for the requested home health care services because: Patient has SOB, Deconditioned with increased weakness, Limited ability to care for self, Need for psychosocial assistance, High risk of falls, Infection with risk of complications, Injectable medication education/administration I certify that my clinical findings support that this patient is homebound because: Unsteady gait/balance, Need for psychosocial assistance, Non-ambulatory: confined to bed or chair, Unable to use public transportation
--- NOTE | 2018-04-27 15:16 | P.DS ---
Date of admission: 04/22/18 12:19 Primary care physician: UNKNOWN Brief History from admission: Ms. 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 She noticed decreased urine output and had nausea, dry heaves as well. She did not have any fever, chills. Patient was recently discharged from the hospital on Augmentin for UTI. Additionally, she complains of epigastric pain and significant GERD symptoms despite taking a potent PPI. Patient is currently hemodynamically stable. She is afebrile, WBC is elevated to 17.6K, Creatinine 1.66, BUN 29. Urinalysis shows evidence of UTI. She has significant diarrhea which is chronic for her. Transplant surgeon as well as ID were consulted. PMH: Polycystic kidney disease, recurrent DVT/PE, chronic pancreatitis, gastroparesis Past surgical history: Numerous abdominal surgeries including total pancreatectomy, renal transplant Social history: Patient denies using tobacco or alcohol or illicit drugs. Family history: Multiple family members with polycystic kidney disease. DS: Medications - Discharge Medications Prescriptions: enoxaparin [Lovenox] 90 mg SUBCUT DAILY 30 Days #27 ml rifaximin [Xifaxan] 200 mg PO Q8HR #21 tab DS: Summary Hospital Course: 57-year-old female with history of numerous abdominal surgeries, gastroparesis, renal transplant who presents to the emergency department due to dehydration, nausea and dry heaves. Patient was recently discharged home on Augmentin for UTI. Patient complains of significant epigastric pain and reflux symptoms despite taking potent PPI. Patient found to have sepsis secondary to UTI. Transplant surgery, nephrology, GI, as well as infectious disease following. Sepsis (On admission WBC 17.9K, heart rate 97, suspected infection UTI). Resolved. - On Ertapenem per infectious disease. WBC went down but slightly up again. She did receive Decadron a couple of days ago - All cultures negative so far. - Ertapenem to continue at home per ID. Abdominal pain: History of kidney transplant History of polycystic kidney disease Acute on Chronic kidney disease -Renal functions better today. -On IVF. Ward Catheter per transplant/Nephrology service. Patient received normal saline at 100 cc/h. -Dilaudid PO ad IV as needed for her chronic pain. -Benadryl as needed for pruritus. -KUB unremarkable. -CT of the abdomen is unremarkable compared to previous imaging. -Case previously discussed with transplant service, Dr. Patel. - Appreciate GI input. Patient started on Rifaximin - Appreciate Palliative care input and recommendations. - Patient refusing PO pain medications and only using IV Dilaudid. She understand that she will not be given Narcotics on discharge. She was advised to follow up with pain management outpatient. -Patient to continue pain meds at home. No new pain med Rx given upon discharge. Persistent headache: - Patient reports persistent headache and states only IV Dilaudid helps with her headache. - Appreciate assistance from Neurology. Patient was given a dose of Decadron. Headache resolved. She was offered Elavil but refused. Thrombocytosis: Has been chronic. Etiology unclear. Worsening -Appreciate Hematology/Oncology following. Workup ongoing. Multiple labs pending - Bone marrow biopsy today - MERRY RN, Hematology will be notified of the change in Platelets. Previously was considering Hydroxyurea. Severe GERD Gastroparesis -Protonix 40 mg p.o. twice daily. -Can consider Reglan PRN - GI consulted. Diabetes mellitus -Blood glucose labile. Levemir 10 units BID and medium sliding scale insulin. Cautious with insulin as her PO intake is highly variable and she has history of Hypoglycemia. Full code. Lovenox. - Time Spent with Patient Total time spent providing and/or coordinating discharge services: - Quality: VTE Deep Vein Thrombosis/Pulmonary Embolism Present on Admission: No Exam Vital signs: Vital Signs 04/26/18 16:50 04/26/18 17:05 04/26/18 17:51 Temperature 98.5 F 98.4 F 98.2 F Pulse Rate 68 83 68 Respiratory Rate 18 18 18 Blood Pressure 168/88 H 144/83 H 144/72 H Pulse Oximetry 91 L 91 L 96 04/26/18 18:00 04/26/18 18:09 04/26/18 19:00 Temperature 98.2 F 98.5 F Pulse Rate 76 70 67 Respiratory Rate 18 16 Blood Pressure 137/76 141/73 H Pulse Oximetry 97 96 04/26/18 20:00 04/26/18 21:00 04/26/18 22:00 Temperature Pulse Rate 78 78 76 Respiratory Rate Blood Pressure Pulse Oximetry 04/26/18 23:00 04/27/18 00:00 04/27/18 01:00 Temperature 98.6 F Pulse Rate 72 76 78 Respiratory Rate 16 Blood Pressure 139/73 Pulse Oximetry 97 04/27/18 02:00 04/27/18 03:00 04/27/18 04:00 Temperature 98.4 F Pulse Rate 72 75 78 Respiratory Rate 16 Blood Pressure 132/74 Pulse Oximetry 96 04/27/18 05:00 04/27/18 06:00 04/27/18 07:00 Temperature 98.5 F Pulse Rate 76 75 78 Respiratory Rate 18 Blood Pressure 133/70 Pulse Oximetry 96 04/27/18 08:00 04/27/18 09:00 04/27/18 10:00 Temperature Pulse Rate 76 76 72 Respiratory Rate Blood Pressure Pulse Oximetry 04/27/18 11:00 04/27/18 12:00 04/27/18 13:00 Temperature 98.6 F Pulse Rate 70 74 70 Respiratory Rate 18 Blood Pressure 133/75 Pulse Oximetry 97 04/27/18 14:00 Temperature Pulse Rate 70 Respiratory Rate Blood Pressure Pulse Oximetry Intake & Output 04/26/18 04/27/18 04/27/18 18:59 06:59 18:59 Intake Total 1984 / 1984 1170 / 1170 1000 / 1000 Output Total 1100 / 1100 500 / 500 Balance 885 / 885 670 / 670 1000 / 1000 Weight 60 kg 60.5 kg Intake: IV 965 / 965 400 / 400 1000 / 1000 NS Inj 1,000 ML @ 100 mls/hr IV 700 / 700 300 / 300 1000 / 1000 .CONT .Q10H [facility] Rx#:[id number] INVanz Inj 1,000 MG In NS Inj 100 / 100 100 ML @ 200 mls/hr IV.SIG Q24H [facility] Rx#:[id number] Magnesium Sulfate Inj 2 GM In 100 / 100 NS Inj 96 ML @ 50 mls/hr IV.SIG ONCE ONE Rx#:[id number] Glycophos 15 Mmol In NS Inj 150 165 / 165 ML @ 40 mls/hr IV.SIG ONCE ONE Rx#:[id number] Oral 1020 / 1020 770 / 770 Output: Urine 1100 / 1100 500 / 500 Other: Date of Last Bowel Movement 04/25/18 04/26/18 04/26/18 Results Labs on day of discharge: Labs from last 24 hours 04/27/18 04/27/18 04/27/18 13:01 08:39 07:58 WBC RBC Hgb Hct MCV MCH MCHC RDW Plt Count MPV Neut % (Auto) Lymph % (Auto) [place] % (Auto) Eos % (Auto) Baso % (Auto) Neut # (Auto) Lymph # (Auto) [place] # (Auto) Eos # (Auto) Baso # (Auto) WBC Differential Diff Scan Differential Comment Sodium Potassium Chloride Carbon Dioxide Anion Gap BUN Creatinine Estimated GFR POC Glucose 179 H 273 H Random Glucose Calcium Phosphorus Magnesium Tacrolimus 9.5 Marrow Immunophenotype BM Chromosome Interp 04/27/18 04/27/18 04/26/18 03:05 03:05 22:47 WBC 6.8 RBC 2.83 L Hgb 7.8 L Hct 24.7 L MCV 87.4 MCH 27.5 MCHC 31.5 L RDW 16.8 Plt Count 948 H MPV 8.0 Neut % (Auto) 70.7 H Lymph % (Auto) 11.8 [place] % (Auto) 13.9 H Eos % (Auto) 3.0 Baso % (Auto) 0.6 Neut # (Auto) 4.8 Lymph # (Auto) 0.8 L [place] # (Auto) 0.9 Eos # (Auto) 0.2 Baso # (Auto) 0.0 WBC Differential . Diff Scan Differential Comment Auto diff final Sodium 143 Potassium 4.6 Chloride 111 H Carbon Dioxide 26.0 Anion Gap 6 BUN 11 Creatinine 0.90 Estimated GFR 65 L POC Glucose 200 H Random Glucose 82 Calcium 8.4 L D Phosphorus 2.6 Magnesium 1.6 Tacrolimus [place] Immunophenotype BM Chromosome Interp 04/26/18 04/26/18 04/26/18 17:55 16:30 16:30 WBC RBC Hgb Hct MCV MCH MCHC RDW Plt Count MPV Neut % (Auto) Lymph % (Auto) [place] % (Auto) Eos % (Auto) Baso % (Auto) Neut # (Auto) Lymph # (Auto) [place] # (Auto) Eos # (Auto) Baso # (Auto) WBC Differential Diff Scan Differential Comment Sodium Potassium Chloride Carbon Dioxide Anion Gap BUN Creatinine Estimated GFR POC Glucose 152 H Random Glucose Calcium Phosphorus Magnesium Tacrolimus [place]row Immunophenotype Pending BM Chromosome Interp Pending 04/26/18 08:15 WBC RBC Hgb Hct MCV MCH MCHC RDW Plt Count MPV Neut % (Auto) Lymph % (Auto) [place] % (Auto) Eos % (Auto) Baso % (Auto) Neut # (Auto) Lymph # (Auto) [place] # (Auto) Eos # (Auto) Baso # (Auto) WBC Differential Diff Scan Auto diff confirmed Differential Comment Sodium Potassium Chloride Carbon Dioxide Anion Gap BUN Creatinine Estimated GFR POC Glucose Random Glucose Calcium Phosphorus Magnesium Tacrolimus [place] Immunophenotype BM Chromosome Interp Preliminary micro results at discharge 04/23/18 00:43 Aerobic Blood Culture - Preliminary Blood - Peripheral No growth in 4 days Anaerobic Blood Culture - Preliminary No growth in 4 days 04/23/18 00:35 Aerobic Blood Culture - Preliminary Blood - Peripheral No growth in 4 days Anaerobic Blood Culture - Preliminary No growth in 4 days - Impressions ITS Impressions Abdomen X-Ray 04/22/18 00:00 CONCLUSION: Negative examination. Abdomen/Pelvis CT 04/22/18 00:00 CONCLUSION: 1. No acute findings. The overall appearance of CT scan is stable compared to 04/04/2018 with multiple findings as described above. Head/Brain Mag Res Venography 04/24/18 00:00 CONCLUSION: 1. Negative MRV Brain non contrast. Ward Line Insertion 04/24/18 00:00 CONCLUSION: Uncomplicated ultrasound and fluoroscopic guided Ward catheter placement as above. Head MRI 04/24/18 14:21 CONCLUSION: 1. Unremarkable MRI of the brain. Head MRA 04/24/18 14:21 CONCLUSION: 1. Negative MRA Cow ([place]) non contrast. Bone Marrow Biopsy w/ CT 04/26/18 00:00 CONCLUSION: 1. Uncomplicated CT guided bone marrow aspirate. 2. Uncomplicated CT guided bone marrow biopsy. Discharge Plan - Discharge Disposition Patient Disposition: Disch W/Home Health Service - Discharge Condition Condition: Good - Discharge Order Discharge Orders: Discharge Order (Routine); Ordered 04/27/18 Ordered By: Sue Brian - Discharge Details Anticipated Discharge Date: 04/27/18 - Physicians Team Primary Care Provider: UNKNOWN, Attending Provider: Sue Brian Other Providers: Pam Austin MD ; Gilberto Patel MD ; Efren Rios MD ; Steven Le MD ; Catina Wallace ; Barbara Appiah MD ; Fan Tovar MD ; Beth Parekh,Agency
--- NOTE | 2018-04-27 15:20 | P.PNID ---
Subjective Remarks: Patient is a 57-year-old female, with a very complicated medical and surgical history, was recently hospitalized for fevers. She was later diagnosed to have urinary tract infection and was discharged on Augmentin. Patient completed the course of antibiotics about 3 days ago. She has had follow-up urinalysis which showed improvement in her pyuria. Her problems started 1 day prior to admission when she developed significant weakness, and later on she started having problem with difficulty urinating, some suprapubic discomfort. When she started urinating she really did not have any dysuria, but had noted decrease in her urine output. She also has been having problem with epigastric pain which was present when she was here during her last admission, but it got better by the time she was discharged, and recently started back again about a week ago. She has chronic nausea but has not had any vomiting. Denies any respiratory complaint. She has been having a lot of reflux symptoms and actually has been sleeping upright. Has not had any fevers, but has had chills for about 2 days on and off. She is also been having sweats since she was discharged from the hospital. She had some episode of blood when she urinated and had a bowel movement and this was about a week ago, and she stopped her anticoagulation. That has stopped. During that time she also noted some nosebleed. Patient called her transplant surgeon, and she was advised to go to the emergency room for further evaluation and treatment. Past Hx: Gastroparesis 2010 Pancreatectomy, islet cell transplant Reza-en-Y duodenal jejunostomy, hepaticojejunostomy, pancreaticojejunostomy, splenectomy 2011 exp lap, RHIANNA, closure of enterotomy in the pancreaticobiliary limb, and terminal ileal through distal sigmoid resection Adult polycystic liver and kidney disease Chronic abdominal pain 2013 extensive RHIANNA, L decortication, and nephrectomy 2016 placement of LUE AVG June 2017 Unrelated donor renal transplant and left nephrectomy August 2017 exp lap, RHIANNA, revision of ileocolic anastomosis September 2017 dev hydro transplant kidney, septic shock, E coli ESBL , and had DVT L femoral vein December 2017 exp lap RHIANNA, and more surgery to bowels previous Ward and removal Notes reviewed Temps normal WBC down to normal Patient currently getting US of both UE No new complaints D/W Dr hernandez earlier today Antibiotics: Invanz Lines: RITO Ward Past Medical History: Gastroparesis Diabetes Dumping syndrome Fracture, femur GERD (gastroesophageal reflux disease) Gastroparesis History of hysterectomy Kidney failure Liver function failure H/O splenectomy History of colectomy History of intestinal surgery History of oophorectomy History of pancreatectomy Kidney transplant recipient Surgical procedure on lower extremity within past 6 months Allergies/Adverse Reactions: Allergies metronidazole [From Flagyl] Allergy (Mild, Verified 04/22/18 16:51) Swelling of the Eye oxycodone Allergy (Mild, Verified 04/22/18 16:52) Itching, Generalized oxytetracycline [From Terramycin] Allergy (Mild, Verified 03/27/18 18:27) Hives fentanyl Allergy (Verified 04/05/18 17:07) Edema filgrastim [From Neupogen] Allergy (Verified 04/05/18 10:48) Anaphylaxis Objective Vital Signs 04/26/18 16:50 04/26/18 17:05 04/26/18 17:51 Temperature 98.5 F 98.4 F 98.2 F Pulse Rate 68 83 68 Respiratory Rate 18 18 18 Blood Pressure 168/88 H 144/83 H 144/72 H Pulse Oximetry 91 L 91 L 96 04/26/18 18:00 04/26/18 18:09 04/26/18 19:00 Temperature 98.2 F 98.5 F Pulse Rate 76 70 67 Respiratory Rate 18 16 Blood Pressure 137/76 141/73 H Pulse Oximetry 97 96 04/26/18 20:00 04/26/18 21:00 04/26/18 22:00 Temperature Pulse Rate 78 78 76 Respiratory Rate Blood Pressure Pulse Oximetry 04/26/18 23:00 04/27/18 00:00 04/27/18 01:00 Temperature 98.6 F Pulse Rate 72 76 78 Respiratory Rate 16 Blood Pressure 139/73 Pulse Oximetry 97 04/27/18 02:00 04/27/18 03:00 04/27/18 04:00 Temperature 98.4 F Pulse Rate 72 75 78 Respiratory Rate 16 Blood Pressure 132/74 Pulse Oximetry 96 04/27/18 05:00 04/27/18 06:00 04/27/18 07:00 Temperature 98.5 F Pulse Rate 76 75 78 Respiratory Rate 18 Blood Pressure 133/70 Pulse Oximetry 96 04/27/18 08:00 04/27/18 09:00 10/31/18 10:00 Temperature Pulse Rate 76 76 72 Respiratory Rate Blood Pressure Pulse Oximetry 04/27/18 11:00 04/27/18 12:00 04/27/18 13:00 Temperature 98.6 F Pulse Rate 70 74 70 Respiratory Rate 18 Blood Pressure 133/75 Pulse Oximetry 97 04/27/18 14:00 Temperature Pulse Rate 70 Respiratory Rate Blood Pressure Pulse Oximetry Intake & Output 04/26/18 04/27/18 04/27/18 18:59 06:59 18:59 Intake Total 1984 / 1984 1170 / 1170 1000 / 1000 Output Total 1100 / 1100 500 / 500 Balance 885 / 885 670 / 670 1000 / 1000 Weight 60 kg 60.5 kg Intake: IV 965 / 965 400 / 400 1000 / 1000 NS Inj 1,000 ML @ 100 mls/hr IV 700 / 700 300 / 300 1000 / 1000 .CONT .Q10H [facility] Rx#:[id number] INVanz Inj 1,000 MG In NS Inj 100 / 100 100 ML @ 200 mls/hr IV.SIG Q24H [facility] Rx#:[id number] Magnesium Sulfate Inj 2 GM In 100 / 100 NS Inj 96 ML @ 50 mls/hr IV.SIG ONCE ONE Rx#:[id number] Glycophos 15 Mmol In NS Inj 150 165 / 165 ML @ 40 mls/hr IV.SIG ONCE ONE Rx#:[id number] Oral 1020 / 1020 770 / 770 Output: Urine 1100 / 1100 500 / 500 Other: Date of Last Bowel Movement 04/25/18 04/26/18 04/26/18 04/23/18 00:43 Blood - Peripheral Aerobic Blood Culture - Preliminary No growth in 4 days 04/23/18 00:43 Blood - Peripheral Anaerobic Blood Culture - Preliminary No growth in 4 days 04/23/18 00:35 Blood - Peripheral Aerobic Blood Culture - Preliminary No growth in 4 days 04/23/18 00:35 Blood - Peripheral Anaerobic Blood Culture - Preliminary No growth in 4 days Lab - Hematology Results 04/26/18 04/27/18 08:15 03:05 WBC 11.1 H D 6.8 RBC 3.04 L 2.83 L Hgb 8.5 L 7.8 L Hct 26.6 L 24.7 L MCV 87.4 87.4 MCH 27.9 27.5 MCHC 31.9 L 31.5 L RDW 16.6 16.8 Plt Count 1004 H 948 H MPV 8.2 8.0 Prelim Diff (Auto) Slide review pending Neut % (Auto) 75.6 H 70.7 H Lymph % (Auto) 7.9 L 11.8 [place] % (Auto) 12.2 H 13.9 H Eos % (Auto) 3.9 3.0 Baso % (Auto) 0.4 0.6 Neut # (Auto) 8.4 H 4.8 Lymph # (Auto) 0.9 L 0.8 L [place] # (Auto) 1.4 H 0.9 Eos # (Auto) 0.4 0.2 Baso # (Auto) 0.0 0.0 WBC Differential . . Diff Scan Auto diff confirmed Differential Comment . Auto diff final Lab - Chemistry Results 04/25/18 04/25/18 04/25/18 15:21 16:45 19:25 Sodium Potassium Chloride Carbon Dioxide Anion Gap BUN Creatinine Estimated GFR POC Glucose 268 H 297 H 301 H Random Glucose Calcium Phosphorus Magnesium 04/26/18 04/26/18 04/26/18 08:04 08:15 11:20 Sodium 138 Potassium 4.9 Chloride 106 Carbon Dioxide 24.2 Anion Gap 8 BUN 15 Creatinine 1.11 H Estimated GFR 51 L POC Glucose 143 H 289 H Random Glucose 132 H D Calcium 9.2 Phosphorus 1.9 L Magnesium 1.4 L 04/26/18 04/26/18 04/27/18 17:55 22:47 03:05 Sodium 143 Potassium 4.6 Chloride 111 H Carbon Dioxide 26.0 Anion Gap 6 BUN 11 Creatinine 0.90 Estimated GFR 65 L POC Glucose 152 H 200 H Random Glucose 82 Calcium 8.4 L D Phosphorus 2.6 Magnesium 1.6 04/27/18 04/27/18 08:39 13:01 Sodium Potassium Chloride Carbon Dioxide Anion Gap BUN Creatinine Estimated GFR POC Glucose 273 H 179 H Random Glucose Calcium Phosphorus Magnesium Imaging: ITS Impressions Abdomen X-Ray 04/22/18 00:00 CONCLUSION: Negative examination. Abdomen/Pelvis CT 04/22/18 00:00 CONCLUSION: 1. No acute findings. The overall appearance of CT scan is stable compared to 04/04/2018 with multiple findings as described above. Head/Brain Mag Res Venography 04/24/18 00:00 CONCLUSION: 1. Negative MRV Brain non contrast. Ward Line Insertion 04/24/18 00:00 CONCLUSION: Uncomplicated ultrasound and fluoroscopic guided Ward catheter placement as above. Head MRI 04/24/18 14:21 CONCLUSION: 1. Unremarkable MRI of the brain. Head MRA 04/24/18 14:21 CONCLUSION: 1. Negative MRA Cow ([place]) non contrast. Bone Marrow Biopsy w/ CT 04/26/18 00:00 CONCLUSION: 1. Uncomplicated CT guided bone marrow aspirate. 2. Uncomplicated CT guided bone marrow biopsy. Physical Exam: GENERAL: Awake and alert, not in distress HEENT: [place] conjunctiva. No icterus. Moist mucosa. No thrush NECK: Not tender LUNGS: Clear breath sounds bilateral. HEART: Regular S1 and S2. No murmurs heard. ABDOMEN: Bowel sounds present, soft, with mild diffuse tenderness; scars C/W surgical history. No guarding or rebound EXTREMITIES: No clubbing, cyanosis or edema. SKIN: No generalized rash. Cool and dry NEUROLOGIC: Grossly non-focal PSYCH: Calm and cooperative. LINE: Ward cath R site ok, no drainage or tenderness Assessment and Plan (1) UTI due to extended-spectrum beta lactamase (ESBL) producing Escherichia coli Status: Acute Code(s): N39.0 - Urinary tract infection, site not specified; B96.29 - Other Escherichia coli [E. coli] as the cause of diseases classified elsewhere; Z16.12 - Extended spectrum beta lactamase (ESBL) resistance - Plan Impression Possible sepsis, better Recurrent UTI, UA with pyuria, but UC negative - repeat UA better - previous UC with E coli ESBL+ Weakness, leukocytosis, possibly due to sepsis, better Leukocytosis, higher today Thrombocytosis, up to 1004K - for BM biopsy S/P renal transplant Chronic abdominal pain, nausea, hx gastroparesis, has had multiple and extensive abdominal surgeries Renal insufficiency, back to baseline [place], work-up negative, better after decadron Recommendation Continue INvanz - plan to give 14 days on D/C Consult CM to arrange home IV Abx I have filled out Abx infusion form May need urologic workup if she gets recurrent UTI OK for D/C once arrangements made for her IV Abx Explained plan to the patient
--- NOTE | 2018-04-27 15:47 | P.PNTS ---
Subjective Interval history: No new c/o. Abd pain better than admit. Ari po. Physical Exam Vital signs: Vital Signs 04/26/18 16:50 04/26/18 17:05 04/26/18 17:51 Temperature 98.5 F 98.4 F 98.2 F Pulse Rate 68 83 68 Respiratory Rate 18 18 18 Blood Pressure 168/88 H 144/83 H 144/72 H Pulse Oximetry 91 L 91 L 96 04/26/18 18:00 04/26/18 18:09 04/26/18 19:00 Temperature 98.2 F 98.5 F Pulse Rate 76 70 67 Respiratory Rate 18 16 Blood Pressure 137/76 141/73 H Pulse Oximetry 97 96 04/26/18 20:00 04/26/18 21:00 04/26/18 22:00 Temperature Pulse Rate 78 78 76 Respiratory Rate Blood Pressure Pulse Oximetry 04/26/18 23:00 04/27/18 00:00 04/27/18 01:00 Temperature 98.6 F Pulse Rate 72 76 78 Respiratory Rate 16 Blood Pressure 139/73 Pulse Oximetry 97 04/27/18 02:00 04/27/18 03:00 04/27/18 04:00 Temperature 98.4 F Pulse Rate 72 75 78 Respiratory Rate 16 Blood Pressure 132/74 Pulse Oximetry 96 04/27/18 05:00 04/27/18 06:00 04/27/18 07:00 Temperature 98.5 F Pulse Rate 76 75 78 Respiratory Rate 18 Blood Pressure 133/70 Pulse Oximetry 96 04/27/18 08:00 04/27/18 09:00 04/27/18 10:00 Temperature Pulse Rate 76 76 72 Respiratory Rate Blood Pressure Pulse Oximetry 04/27/18 11:00 04/27/18 12:00 04/27/18 13:00 Temperature 98.6 F Pulse Rate 70 74 70 Respiratory Rate 18 Blood Pressure 133/75 Pulse Oximetry 97 04/27/18 14:00 Temperature Pulse Rate 70 Respiratory Rate Blood Pressure Pulse Oximetry Intake & Output 04/26/18 04/27/18 04/27/18 18:59 06:59 18:59 Intake Total 1984 1170 / 1170 1000 / 1000 Output Total 1100 / 1100 500 / 500 Balance 885 / 885 670 / 670 1000 / 1000 Weight 60 kg 60.5 kg Intake: IV 965 / 965 400 / 400 1000 / 1000 NS Inj 1,000 ML @ 100 mls/hr IV 700 / 700 300 / 300 1000 / 1000 .CONT .Q10H [facility] Rx#:[id number] INVanz Inj 1,000 MG In NS Inj 100 / 100 100 ML @ 200 mls/hr IV.SIG Q24H [facility] Rx#:[id number] Magnesium Sulfate Inj 2 GM In 100 / 100 NS Inj 96 ML @ 50 mls/hr IV.SIG ONCE ONE Rx#:[id number] Glycophos 15 Mmol In NS Inj 150 165 / 165 ML @ 40 mls/hr IV.SIG ONCE ONE Rx#:[id number] Oral 1020 / 1020 770 / 770 Output: Urine 1100 / 1100 500 / 500 Other: Date of Last Bowel Movement 04/25/18 04/26/18 04/26/18 - Constitutional no acute distress - Routine HEENT Exam Head: Present: normocephalic, atraumatic Eye: Present: EOMI ENT: Present: mucous membranes moist - Routine Neck Exam Present: supple - Routine Respiratory Exam Present: CTA bilaterally - Routine Cardiovascular Exam Present: RRR, S1, S2 - Routine Extremities Exam Present: pulses intact - Routine Skin Exam Present: intact - Routine Neurological Exam Present: alert, oriented X3 - Routine Psychiatric Exam Present: normal affect, normal thought process Results - Labs CBC & Chem 7: 04/27/18 03:05 04/27/18 03:05 Laboratory Results - last 24 hr 04/26/18 04/26/18 04/26/18 08:15 17:55 22:47 WBC RBC Hgb Hct MCV MCH MCHC RDW Plt Count MPV Neut % (Auto) Lymph % (Auto) Bath % (Auto) Eos % (Auto) Baso % (Auto) Neut # (Auto) Lymph # (Auto) Bath # (Auto) Eos # (Auto) Baso # (Auto) WBC Differential Diff Scan Auto diff confirmed Differential Comment Sodium Potassium Chloride Carbon Dioxide Anion Gap BUN Creatinine Estimated GFR POC Glucose 152 H 200 H Random Glucose Calcium Phosphorus Magnesium Tacrolimus 04/27/18 04/27/18 04/27/18 03:05 03:05 07:58 WBC 6.8 RBC 2.83 L Hgb 7.8 L Hct 24.7 L MCV 87.4 MCH 27.5 MCHC 31.5 L RDW 16.8 Plt Count 948 H MPV 8.0 Neut % (Auto) 70.7 H Lymph % (Auto) 11.8 Bath % (Auto) 13.9 H Eos % (Auto) 3.0 Baso % (Auto) 0.6 Neut # (Auto) 4.8 Lymph # (Auto) 0.8 L Bath # (Auto) 0.9 Eos # (Auto) 0.2 Baso # (Auto) 0.0 WBC Differential . Diff Scan Differential Comment Auto diff final Sodium 143 Potassium 4.6 Chloride 111 H Carbon Dioxide 26.0 Anion Gap 6 BUN 11 Creatinine 0.90 Estimated GFR 65 L POC Glucose Random Glucose 82 Calcium 8.4 L D Phosphorus 2.6 Magnesium 1.6 Tacrolimus 9.5 04/27/18 04/27/18 08:39 13:01 WBC RBC Hgb Hct MCV MCH MCHC RDW Plt Count MPV Neut % (Auto) Lymph % (Auto) Bath % (Auto) Eos % (Auto) Baso % (Auto) Neut # (Auto) Lymph # (Auto) Bath # (Auto) Eos # (Auto) Baso # (Auto) WBC Differential Diff Scan Differential Comment Sodium Potassium Chloride Carbon Dioxide Anion Gap BUN Creatinine Estimated GFR POC Glucose 273 H 179 H Random Glucose Calcium Phosphorus Magnesium Tacrolimus Microbiology 04/23/18 00:43 Blood - Peripheral Aerobic Blood Culture - Preliminary No growth in 4 days 04/23/18 00:43 Blood - Peripheral Anaerobic Blood Culture - Preliminary No growth in 4 days 04/23/18 00:35 Blood - Peripheral Aerobic Blood Culture - Preliminary No growth in 4 days 04/23/18 00:35 Blood - Peripheral Anaerobic Blood Culture - Preliminary No growth in 4 days - Imaging Impressions Bone Marrow Biopsy w/ CT 04/26/18 00:00 CONCLUSION: 1. Uncomplicated CT guided bone marrow aspirate. 2. Uncomplicated CT guided bone marrow biopsy. Assessment and Plan - Assessment (1) Renal transplant recipient Code(s): Z94.0 - Kidney transplant status Status: Acute (2) Renal insufficiency Code(s): N28.9 - Disorder of kidney and ureter, unspecified Status: Acute (3) DM (diabetes mellitus) Code(s): E11.9 - Type 2 diabetes mellitus without complications Status: Acute (4) Abdominal pain Code(s): R10.9 - Unspecified abdominal pain Status: Acute - Plan Patient with complex medical and surgical history, s/p living donor kidney transplant in June 2017 in [place]. Was seen at [facility] since then for consideration for multivisceral transplant. Was on TPN, but has since refused to resume, although its unclear, how well she will do nutritionally due to the amount of remaining bowel. She seemed to be doing okay post discharge. Her urinary tract infection seemed to be responding to antibiosis, however, she now re-presents with what seems to be either a new or recurrent UTI. Mild anasarca improved patient clinically looks okay. Case d/w other consultants. Plan for Iv abx course. Will resume prograf at 4 mg bi and continue 10 mg prednisone. Continue po diet as d/w GI. Okay with discharge to home. F/u at transplant clinic on Wednesday. No new recommendations.
--- NOTE | 2018-04-27 15:54 | US ---
EXAM DATE: 04/27/2018 3:48 PM EDT AGE/SEX: 57 years / Female INDICATIONS: Bilateral arm swelling. CLINICAL DATA: This is the patient's initial encounter. Patient reports that signs and symptoms have been present for 1 day and indicates a pain score of 0/10. MEDICAL/SURGICAL HISTORY: . Diabetes mellitus type II. Hypertension. Renal insufficiency, chron ic. . Appendectomy. Hysterectomy. Cholecystectomy. Nephrectomy x 2, partial gastrectomy. Kidney bautista splant. COMPARISON: No prior exams available for comparison. FINDINGS: Right Upper Extremity: Small nonocclusive thrombus just distal to the IV site right arm. Left Upper Extremity: The vessels are compressible and augmentation response is documented. No filli ng defects are seen. The flow is phasic with respiration. Other: None. CONCLUSION: 1. Thrombus just distal to . Site right arm. 2. No thrombus on the left. Electronically signed by: Morgan Dai MD 04/27/2018 3:53 PM EDT
--- NOTE | 2018-04-27 15:55 | P.PNNP ---
Subjective Interval history: Patient feels better, sore from bone marrow biopsy Physical Exam Vital signs: Vital Signs 04/26/18 16:50 04/26/18 17:05 04/26/18 17:51 Temperature 98.5 F 98.4 F 98.2 F Pulse Rate 68 83 68 Respiratory Rate 18 18 18 Blood Pressure 168/88 H 144/83 H 144/72 H Pulse Oximetry 91 L 91 L 96 04/26/18 18:00 04/26/18 18:09 04/26/18 19:00 Temperature 98.2 F 98.5 F Pulse Rate 76 70 67 Respiratory Rate 18 16 Blood Pressure 137/76 141/73 H Pulse Oximetry 97 96 04/26/18 20:00 04/26/18 21:00 04/26/18 22:00 Temperature Pulse Rate 78 78 76 Respiratory Rate Blood Pressure Pulse Oximetry 04/26/18 23:00 04/27/18 00:00 04/27/18 01:00 Temperature 98.6 F Pulse Rate 72 76 78 Respiratory Rate 16 Blood Pressure 139/73 Pulse Oximetry 97 04/27/18 02:00 04/27/18 03:00 04/27/18 04:00 Temperature 98.4 F Pulse Rate 72 75 78 Respiratory Rate 16 Blood Pressure 132/74 Pulse Oximetry 96 04/27/18 05:00 04/27/18 06:00 04/27/18 07:00 Temperature 98.5 F Pulse Rate 76 75 78 Respiratory Rate 18 Blood Pressure 133/70 Pulse Oximetry 96 04/27/18 08:00 04/27/18 09:00 04/27/18 10:00 Temperature Pulse Rate 76 76 72 Respiratory Rate Blood Pressure Pulse Oximetry 04/27/18 11:00 04/27/18 12:00 04/27/18 13:00 Temperature 98.6 F Pulse Rate 70 74 70 Respiratory Rate 18 Blood Pressure 133/75 Pulse Oximetry 97 04/27/18 14:00 Temperature Pulse Rate 70 Respiratory Rate Blood Pressure Pulse Oximetry Intake & Output 04/26/18 04/27/18 04/27/18 18:59 06:59 18:59 Intake Total 1984 / 1984 1170 / 1170 1000 / 1000 Output Total 1100 / 1100 500 / 500 Balance 885 / 885 670 / 670 1000 / 1000 Weight 60 kg 60.5 kg Intake: IV 965 / 965 400 / 400 1000 / 1000 NS Inj 1,000 ML @ 100 mls/hr IV 700 / 700 300 / 300 1000 / 1000 .CONT .Q10H [facility] Rx#:[id number] INVanz Inj 1,000 MG In NS Inj 100 / 100 100 ML @ 200 mls/hr IV.SIG Q24H [facility] Rx#:[id number] Magnesium Sulfate Inj 2 GM In 100 / 100 NS Inj 96 ML @ 50 mls/hr IV.SIG ONCE ONE Rx#:[id number] Glycophos 15 Mmol In NS Inj 150 165 / 165 ML @ 40 mls/hr IV.SIG ONCE ONE Rx#:[id number] Oral 1020 / 1020 770 / 770 Output: Urine 1100 / 1100 500 / 500 Other: Date of Last Bowel Movement 04/25/18 04/26/18 04/26/18 Narrative: GENERAL: Patient appears older than stated age. CARDIOVASCULAR: Normal rate and regular rhythm without murmurs, gallops, or rubs. RESPIRATORY: Good respiratory efforts. Breath sounds equal and clear to auscultation bilaterally. GASTROINTESTINAL: Abdomen soft, mild tenderness to palpation in the midepigastric region. Normal active bowel sounds MUSCULOSKELETAL: Extremities without cyanosis, or edema. NEURO: Alert & Oriented x4 to person, place, time, situation. Moves all ext x4 PSYCH: Appropriate mood and affect. Assessment and Plan - Assessment (1) Renal transplant recipient Code(s): Z94.0 - Kidney transplant status Status: Acute - Plan Patient with post Renal transplant done in 2017. Cultures negative Now admitted with another episode. Creatinine is 1.0, On Prograf 4 mg BID. Tacrolimus levels declined after holding her dose 9.5 Ward line inserted. Cultures all negative, ID following. Blood glucose better Levemir 10 units twice daily Patient has low magnesium and phosphorus will replace that, due to epigastric pain and bloating I have resumed Tums every 4 hourly as needed for her GI symptoms, patient has a lot of GI complaints and regurgitation\ Continue to have these complaints, has denied pancreas and bowel transplant due to poor success rate and increased morbidity and mortality associated with such procedure. Patient will be discharged and follow-up at transplant clinic will complete Invanz as outpatient with previously documented ESBL E. coli UTI
[2018-04-27 18:23] VITALS: BP 162/85; PULSE 72; TEMP 98.4; O2SAT 98
[2018-04-27] MEDS ORDERED: Enoxaparin Inj 100 MG/ML Syringe SQ SCH (20:00)
--- NOTE | 2018-04-28 16:35 | ECG ---
Date Performed: 04/27/2018 Time Performed: 15:35:08 PTAGE: 57 years EKG: Sinus rhythm Poor R wave progression - probable normal variant Borderline ECG PREVIOUS TRACING 03/29/2018 @ 07.54 .06 Since the previous tracing, no significant change note d DOCTOR: Lanre Veliz Interpretating Date/Time 04/28/2018 16:33:55
== END 2018-04-27 18:29 | disposition home health service (06) ==
LOC: NEPE 08:53 → NEDA 12:19 → HCPC 14:49 → UNDODISIN 04-23 11:30
PROVIDERS: ADMIT Hospitalist; ATTEND Hospitalist

== ENCOUNTER 2018-05-17 00:10 | Inpatient (IN) ==
--- NOTE | 2018-05-17 01:28 | XR ---
EXAM DATE: 05/17/2018 1:18 AM EST AGE/SEX: 57 years / Female INDICATIONS: Fever. Nausea. Vomiting. CLINICAL DATA: This is the patient's initial encounter. Patient reports that signs and symptoms have been present for 1 day and indicates a pain score of 0/10. MEDICAL/SURGICAL HISTORY: Hypertension. Diabetes mellitus type II. . Right side kidney transpl ant. COMPARISON: [facility] [place], CT ABDOMEN & PELVIS W/O CONTRAST, 03/27/2018. . FINDINGS: Single AP view the chest. The lungs are clear. Oval soft tissue density under the left hem idiaphragm correlates with nodule seen on prior recent CT abdomen and pelvis exam. Cardiomediastinal silhouette within normal limits. No evidence of pleural effusion or pneumothorax. CONCLUSION: No acute cardiopulmonary disease identified. Electronically signed by: Joaquín Menezes MD 05/17/2018 1:27 AM EST
[2018-05-17] MEDS ORDERED: Pantoprazole Inj 40 MG Vial IV.PUSH ONE (01:34)
[2018-05-17 01:41] LABS: Baso % (Auto) 0.3 % (0.0-2.0); Eos % (Auto) 0.2 % (0.0-4.0); Hematocrit 31.4 % (35.0-46.0); Hemoglobin 10.2 gm/dL (11.6-15.3); Lymph # (Auto) 0.4 th/mm3 (1.0-4.8); Lymph % (Auto) 2.8 % (9.0-44.0); Mean Corpuscular HGB Conc 32.4 % (32.0-36.0); Mean Corpuscular Hemoglobin 28.2 pg (27.0-34.0); Mean Platelet Volume 8.8 fL (7.0-11.0); Mono # (Auto) 1.3 th/mm3 (0.0-0.9); Mono % (Auto) 8.6 % (0.0-8.0); Neut # (Auto) 13.5 th/mm3 (1.8-7.7); Neut % (Auto) 88.1 % (16.0-70.0); Platelet Count 609 th/mm3 (150-450); Red Blood Count 3.61 mil/mm3 (4.00-5.30); Red Cell Distribution Width 17.9 % (11.6-17.2); White Blood Count 15.3 th/mm3 (4.0-11.0)
[2018-05-17 02:06] LABS: Alanine Aminotransferase 31 U/L (10-53); Albumin 3.4 g/dL (3.4-5.0); Anion Gap 10 meq/L (5-15); Aspartate Aminotransferase 35 U/L (15-37); Blood Urea Nitrogen 35 mg/dL (7-18); Calcium 9.6 mg/dL (8.5-10.1); Carbon Dioxide 18.9 meq/L (21.0-32.0); Chloride 104 meq/L (98-107); Glomerular Filtration Rate 28 mL/min (>89); Glucose,Random 358 mg/dL (74-106); Magnesium 1.6 mg/dL (1.5-2.5); Potassium 5.2 meq/L (3.5-5.1); Sodium 133 meq/L (136-145)
[2018-05-17 02:09] LABS: Alkaline Phosphatase 329 U/L (45-117); Total Protein 7.5 g/dL (6.4-8.2)
[2018-05-17 02:09] LABS: Bacteria,Urine Occasional /hpf; Bilirubin,Urine Negative (Negative); Clarity,Urine Hazy (Clear); Color,Urine Yellow (Yellw/Straw); Glucose,Urine (UA) 500 or Greater mg/dL (Negative); Leukocyte Esterase,Urine Small (Negative); Mucus,Urine Few /lpf (Occasional); Nitrite,Urine Negative (Negative); Specific Gravity,Urine 1.012 (1.002-1.035); Squamous Epithelial Cell,Urine 1 /hpf (0-5)
[2018-05-17] MEDS ORDERED: Morphine Inj 4 MG/ML Vial IV.PUSH ONE (02:37)
[2018-05-17] MEDS ORDERED: Sodium Chlor 0.9% Inj 500 ML IV.SIG ONE (02:39)
[2018-05-17] MEDS ORDERED: Dextrose 50% in Water 50 ML Vial IV.PUSH PRN (03:58)
--- NOTE | 2018-05-17 04:05 | ED ---
HPI General Chief complaint: Fever Stated complaint: poss fever, vomiting/transplant pt Time Seen by Provider: 05/17/18 00:29 History of Present Illness HPI narrative: Patient is a 57-year-old female coming in complaining of fever at home of 102 measured by thermometer patient says she has been feeling nauseous and she actually vomited. She is a renal transplant patient her surgery was 10 months ago in June [address]. Dr. Patel is her transplant surgeon and Dr. Zacarias is her agriculture scientist. She said recently she was treated with meropenem inpatient and ertapenem as an outpatient to a Ward port catheter due to urine infection with as below E. coli that was ESBL positive. Patient now in the ER says she has vague abdominal pain discomfort she said is very rare that she would vomit she denies any return of dysuria. She is on Prograf and prednisone which is immune suppressing her for her transplant and makes her at risk for bacterial infection and a return of the E. coli ESBL. X- ray is ordered urine is ordered labs are ordered and she will be evaluated for possible immune suppressed fever with readmission and return of IV antibiotics meropenem and ID consult in the a.m. and nephrology as well as transplant will be consulted Related Data Home Medications Medication Instructions Recorded Confirmed Phenergan 25 mg PO Q6-8H PRN 03/27/18 04/22/18 acetaminophen 650 mg PO Q4H PRN 03/27/18 04/22/18 atorvastatin 20 mg PO DAILY 03/27/18 04/22/18 carvedilol 12.5 mg PO BID 03/27/18 04/22/18 diphenoxylate-atropine [Lomotil] 1 tab PO TID 03/27/18 04/22/18 ergocalciferol (vitamin D2) 50,000 unit PO 3XW 03/27/18 04/22/18 insulin glargine 12 unit SUBCUT QAM AND QHS 03/27/18 04/22/18 insulin lispro 1 sliding scale dose SUBCUT UD 03/27/18 04/22/18 [id number] [Creon] 3 cap PO TIDAC 03/27/18 04/22/18 ondansetron 4 mg PO Q8H PRN 03/27/18 04/22/18 prednisone 10 mg PO DAILY 03/27/18 04/22/18 prochlorperazine maleate 10 mg PO Q6-8H PRN 03/27/18 04/22/18 [Compazine] tacrolimus [Prograf] 4 mg PO Q12H 03/27/18 04/22/18 dexlansoprazole [Dexilant] 60 mg PO DAILY 04/24/18 04/24/18 metoclopramide HCl [Reglan] 10 mg PO TID 04/24/18 04/24/18 Previous Rx's Medication Instructions Recorded enoxaparin [Lovenox] 90 mg SUBCUT DAILY 30 Days #27 ml 04/27/18 ertapenem [Invanz] 1,000 mg IV Q24H ea 04/27/18 rifaximin [Xifaxan] 200 mg PO Q8HR #21 tab 04/27/18 Allergies Allergy/AdvReac Type Severity Reaction Status Date / Time metronidazole [From Flagyl] Allergy Mild Swelling Verified 04/22/18 16:51 of the Eye oxycodone Allergy Mild Itching, Verified 04/22/18 16:52 Generalized oxytetracycline Allergy Mild Hives Verified 03/27/18 18:27 [From Terramycin] fentanyl Allergy Edema Verified 04/05/18 17:07 filgrastim [From Neupogen] Allergy Anaphylaxis Verified 04/05/18 10:48 Review of Systems ROS: all other systems reviewed are negative [facility] Social History Social History Substance History: No History of Abuse Second Hand Smoke Exposure: No Smoking Status: Former smoker Tobacco Type: Cigarettes Smoking End Date: 2008 (smoke 1/4 PPD off and on for 10 years before quitting in 2008) How Often Do You Have a Drink Containing Alcohol: Never Hx Recent Travel: Yes (was in [place] then [place]) Recent Travel in [facility] within the Last 8 Weeks: No Recent Out of Country Travel within the Last 8 Weeks: No Immunization History Tetanus Immunization: <5 Years Exam Narrative Exam Narrative: GENERAL: Patient is awake alert she is afebrile here his temperature at triage is 100.3 she did not take any Tylenol or Motrin and no antipyretics were taken prior to her arrival temperature apparently is come down without any intervention SKIN: Warm and dry. HEAD: Atraumatic. Normocephalic. EYES: Pupils equal and round. No scleral icterus. No injection or drainage. ENT: No nasal bleeding or discharge. Mucous membranes pink and moist. NECK: Trachea midline. No JVD. CARDIOVASCULAR: Regular rate and rhythm. RESPIRATORY: No accessory muscle use. Clear to auscultation. Breath sounds equal bilaterally. GASTROINTESTINAL: Abdomen soft, non-tender, nondistended. Hepatic and splenic margins not palpable. MUSCULOSKELETAL: Extremities without clubbing, cyanosis, or edema. No obvious deformities. NEUROLOGICAL: Awake and alert. No obvious cranial nerve deficits. Motor grossly within normal limits. Five out of 5 muscle strength in the arms and legs. Normal speech. PSYCHIATRIC: Appropriate mood and affect; insight and judgment normal. Course Initial Documented Vital Signs Temperature 100.1 F H 05/17/18 00:20 Pulse Rate 97 H 05/17/18 00:20 Respiratory Rate 18 05/17/18 00:20 Blood Pressure 140/81 05/17/18 00:20 Pulse Oximetry 96 05/17/18 00:20 Last Documented Vital Signs Temperature 98.8 F 05/17/18 03:58 Pulse Rate 71 05/17/18 03:58 Respiratory Rate 15 05/17/18 03:58 Blood Pressure 123/62 05/17/18 03:58 Pulse Oximetry 97 05/17/18 03:58 Medical Decision Making MDM Narrative Medical decision making narrative: Patient's urine has 7 white cells but does not seem to be obviously infected however patient did have a fever and she recently had E. coli with ESBL it was resistant to many antibiotics therefore I will err on the side of caution and treat her empirically with meropenem and admit her for neutropenic fever immune suppression fever and let ID see her in the a.m. Also a consult to be placed to her Dr. Patel the transplant surgeon as well as Dr. Hughes her agriculture scientist Medical Screen Exam Complete: Yes Emergency Medical Condition: Yes Differential Diagnosis Differential Diagnosis: Differential diagnosis includes viral illness causing the fever. Versus return of her UTI causing a fever versus a pneumonia causing a fever versus autoimmune inflammation process causing a low-grade fever patient is immunocompromise due to the fact she is on prednisone and Prograf Lab Data Result diagrams: 05/17/18 01:17 05/17/18 01:17 Lab Results 05/17/18 05/17/18 05/17/18 Range/Units 01:17 01:17 01:17 WBC 15.3 H (4.0-11.0) th/mm3 RBC 3.61 L (4.00-5.30) mil/mm3 Hgb 10.2 L (11.6-15.3) gm/dL Hct 31.4 L (35.0-46.0) % MCV 87.0 (80.0-100.0) fL MCH 28.2 (27.0-34.0) pg MCHC 32.4 (32.0-36.0) % RDW 17.9 H (11.6-17.2) % Plt Count 609 H (150-450) th/mm3 MPV 8.8 (7.0-11.0) fL Neut % (Auto) 88.1 H (16.0-70.0) % Lymph % (Auto) 2.8 L (9.0-44.0) % Tyrrell % (Auto) 8.6 H (0.0-8.0) % Eos % (Auto) 0.2 (0.0-4.0) % Baso % (Auto) 0.3 (0.0-2.0) % Neut # (Auto) 13.5 H (1.8-7.7) th/mm3 Lymph # (Auto) 0.4 L (1.0-4.8) th/mm3 Tyrrell # (Auto) 1.3 H (0.0-0.9) th/mm3 Eos # (Auto) 0.0 (0.0-0.4) th/mm3 Baso # (Auto) 0.0 (0.0-0.2) th/mm3 WBC Differential . Differential Comment Auto diff final Sodium 133 L (136-145) meq/L Potassium 5.2 H (3.5-5.1) meq/L Chloride 104 (98-107) meq/L Carbon Dioxide 18.9 L (21.0-32.0) meq/L Anion Gap 10 (5-15) meq/L BUN 35 H (7-18) mg/dL Creatinine 1.86 H (0.50-1.00) mg/dL Estimated GFR 28 L (>89) mL/min POC Glucose (68-110) mg/dl Random Glucose 358 H D (74-106) mg/dL Lactic Acid 1.6 (0.4-2.0) mmol/L Calcium 9.6 (8.5-10.1) mg/dL Magnesium 1.6 (1.5-2.5) mg/dL Total Bilirubin 0.4 (0.2-1.0) mg/dL AST 35 (15-37) U/L ALT 31 (10-53) U/L Alkaline Phosphatase 329 H (45-117) U/L Total Protein 7.5 (6.4-8.2) g/dL Albumin 3.4 (3.4-5.0) g/dL Urine Color (Yellw/Straw) Urine Clarity (Clear) Urine pH (5.0-8.5) Ur Specific Warren (1.002-1.035) Urine Protein (Neg-Trace) mg/dL Urine Glucose (UA) (Negative) mg/dL Urine Ketones (Negative) mg/dL Urine Occult Blood (Negative) Urine Nitrate (Negative) Urine Bilirubin (Negative) Urine Urobilinogen (Less than 2) mg/dL Ur Leukocyte Esterase (Negative) Urine RBC (0-3) /hpf Urine WBC (0-5) /hpf Ur Squamous Epith Cells (0-5) /hpf Urine Bacteria (None) /hpf Urine Mucus (Occasional) /lpf Micro UA Comment Ur Microscopic Review Urine Culture Comments 05/17/18 05/17/18 05/17/18 Range/Units 01:30 01:38 04:06 WBC (4.0-11.0) th/mm3 RBC (4.00-5.30) mil/mm3 Hgb (11.6-15.3) gm/dL Hct (35.0-46.0) % MCV (80.0-100.0) fL MCH (27.0-34.0) pg MCHC (32.0-36.0) % RDW (11.6-17.2) % Plt Count (150-450) th/mm3 MPV (7.0-11.0) fL Neut % (Auto) (16.0-70.0) % Lymph % (Auto) (9.0-44.0) % Tyrrell % (Auto) (0.0-8.0) % Eos % (Auto) (0.0-4.0) % Baso % (Auto) (0.0-2.0) % Neut # (Auto) (1.8-7.7) th/mm3 Lymph # (Auto) (1.0-4.8) th/mm3 Tyrrell # (Auto) (0.0-0.9) th/mm3 Eos # (Auto) (0.0-0.4) th/mm3 Baso # (Auto) (0.0-0.2) th/mm3 WBC Differential Differential Comment Sodium (136-145) meq/L Potassium (3.5-5.1) meq/L Chloride (98-107) meq/L Carbon Dioxide (21.0-32.0) meq/L Anion Gap (5-15) meq/L BUN (7-18) mg/dL Creatinine (0.50-1.00) mg/dL Estimated GFR (>89) mL/min POC Glucose 358 H 349 H (68-110) mg/dl Random Glucose (74-106) mg/dL Lactic Acid (0.4-2.0) mmol/L Calcium (8.5-10.1) mg/dL Magnesium (1.5-2.5) mg/dL Total Bilirubin (0.2-1.0) mg/dL AST (15-37) U/L ALT (10-53) U/L Alkaline Phosphatase (45-117) U/L Total Protein (6.4-8.2) g/dL Albumin (3.4-5.0) g/dL Urine Color Yellow (Yellw/Straw) Urine Clarity Hazy H (Clear) Urine pH 5.0 (5.0-8.5) Ur Specific Warren 1.012 (1.002-1.035) Urine Protein Negative (Neg-Trace) mg/dL Urine Glucose (UA) 500 or greater (Negative) mg/dL Urine Ketones Negative (Negative) mg/dL Urine Occult Blood Negative (Negative) Urine Nitrate Negative (Negative) Urine Bilirubin Negative (Negative) Urine Urobilinogen Less than 2 (Less than 2) mg/dL Ur Leukocyte Esterase Small H (Negative) Urine RBC 3 (0-3) /hpf Urine WBC 7 H (0-5) /hpf Ur Squamous Epith Cells 1 (0-5) /hpf Urine Bacteria Occasional H (None) /hpf Urine Mucus Few H (Occasional) /lpf Micro UA Comment Culture not ind Ur Microscopic Review Not Reportable Urine Culture Comments Culture not ind Imaging Data Radiologist's impression: Chest X-Ray 05/17/18 00:49 CONCLUSION: No acute cardiopulmonary disease identified. Discharge Plan Discharge Disposition Patient Disposition: 30 Still Patient Physicians Team ED Provider: Rosendo Ford Attending Provider: Stephanie Meneses Other Providers: Miki Hughes Discharge Interventions Interventions: Vital Signs Last Done: 05/17/18 00:46 Status ED Status: Admitted Patient
[2018-05-17] MEDS ORDERED: Sodium Chloride 0.9% 2 ML Flush PRN IV.FLUSH (04:06)
[2018-05-17] MEDS: Sod Chloride 0.9% Inj 1,000 ML IV.CONT SCH ×3 (04:26→19:27)
--- NOTE | 2018-05-17 04:26 | P.HP ---
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 The patient was discharged to home with Invanz times 2- week, completed 1 week ago at which time her Ward was removed. She reports a home temperature of 102 taken by mouth. Her fever resolved on its own without antipyretic medications by the time she arrived in the emergency department. She is status post renal transplant on 07/22/17 in [place]. The patient's primary concern at this time is her gastrointestinal issues. She reports significant emesis x2 earlier today and is concerned about possible obstruction. During her previous hospitalization (discharge on 04/27/18) the patient was evaluated by gastroenterology who started rifaximin. The patient denies any chest pain or shortness of breath. No dysuria or urinary retention. No lateralizing signs/symptoms. Inpatient Certification: I certify that the inpatient services were ordered in accordance with Medicare regulations governing the order. This includes certification that hospital inpatient services are reasonable and necessary and in the case of services not specified as inpatient-only under 42 CFR 419.22(n), that they are appropriately provided as inpatient services in accordance to with the 2-midnight benchmark under 43 CFR 412.3(e) Estimated Total Length of Stay (Days): 2 Plans for Post Hospital Care: Not yet determined Review of Systems All other systems reviewed negative except as stated in HPI [facility] - History History Provided By: Patient - Medical History Medical History: Medical History (Last Reviewed 05/17/18 @ 04:07 by Stephanie Meneses MD) Diabetes Dumping syndrome Fracture, femur GERD (gastroesophageal reflux disease) Gastroparesis Gastroparesis History of ESBL E. coli infection History of hysterectomy Kidney failure Liver function failure - Surgical History Surgical History: Surgical History (Last Reviewed 05/17/18 @ 04:08 by Stephanie Meneses MD) H/O splenectomy (Acute) History of intestinal surgery (Acute) History of colectomy History of oophorectomy History of pancreatectomy Kidney transplant recipient Surgical procedure on lower extremity within past 6 months - Social History I have reviewed the patient's Social History: Yes - Tobacco History Second Hand Smoke Exposure: No Tobacco Use In Past 30 Days: No Smoking Status: Former smoker Tobacco Type: Cigarettes Smoking End Date: 2008 (smoke 1/4 PPD off and on for 10 years before quitting in 2008) - Alcohol History How Often Do You Have a Drink Containing Alcohol: Never - Substance Use History Substance History: No History of Abuse - Travel History History of Recent Travel: Yes (was in [place] then [place]) Recent Travel in the [facility] Within the Last 8 Weeks: No Recent Travel Out of the Country Within the Last 8 Weeks: No - Immunization History Tetanus Immunization: <5 Years Medications and Allergies Allergies Allergy/AdvReac Type Severity Reaction Status Date / Time metronidazole [From Flagyl] Allergy Mild Swelling Verified 04/22/18 16:51 of the Eye oxycodone Allergy Mild Itching, Verified 04/22/18 16:52 Generalized oxytetracycline Allergy Mild Hives Verified 03/27/18 18:27 [From Terramycin] fentanyl Allergy Edema Verified 04/05/18 17:07 filgrastim [From Neupogen] Allergy Anaphylaxis Verified 04/05/18 10:48 Home Medications Medication Instructions Recorded Confirmed Type Phenergan 25 mg PO Q6-8H PRN 03/27/18 04/22/18 History acetaminophen 650 mg PO Q4H PRN 03/27/18 04/22/18 History atorvastatin 20 mg PO DAILY 03/27/18 04/22/18 History carvedilol 12.5 mg PO BID 03/27/18 04/22/18 History diphenoxylate-atropine [Lomotil] 1 tab PO TID 03/27/18 04/22/18 History ergocalciferol (vitamin D2) 50,000 unit PO 3XW 03/27/18 04/22/18 History insulin glargine 12 unit SUBCUT QAM AND QHS 03/27/18 04/22/18 History insulin lispro 1 sliding scale dose SUBCUT UD 03/27/18 04/22/18 History [id number]-baxdddxn-ossmzca [Creon] 3 cap PO TIDAC 03/27/18 04/22/18 History ondansetron 4 mg PO Q8H PRN 03/27/18 04/22/18 History prednisone 10 mg PO DAILY 03/27/18 04/22/18 History prochlorperazine maleate 10 mg PO Q6-8H PRN 03/27/18 04/22/18 History [Compazine] tacrolimus [Prograf] 4 mg PO Q12H 03/27/18 04/22/18 History dexlansoprazole [Dexilant] 60 mg PO DAILY 04/24/18 04/24/18 History metoclopramide HCl [Reglan] 10 mg PO TID 04/24/18 04/24/18 History Exam Vital signs: Vital Signs 05/17/18 00:20 05/17/18 00:37 05/17/18 00:46 Temperature 100.1 F H 100.3 F H Pulse Rate 97 H 85 Respiratory Rate 18 16 Blood Pressure 140/81 122/72 Pulse Oximetry 96 97 Intake & Output 05/16/18 05/16/18 05/17/18 06:59 18:59 06:59 Weight 56.699 kg Narrative: Gen.: No acute distress Head: Normocephalic. Atraumatic. EENT: Pupils equal round and reactive to light. Nose without drainage. Airway intact. Throat without injection. Cardiovascular: Regular rate and rhythm. No murmurs, rubs or gallops. Respiratory: Lungs clear to auscultation bilaterally. No wheezes or rhonchi. Abdomen: Soft, diffusely tender to palpation, nondistended. No peritoneal signs. Musculoskeletal: No gross deformities. No edema. Skin: No obvious rashes or erythema. Neuro: Sensory and motor grossly intact. Cranial nerves II through XII grossly intact. Results - Labs CBC & Chem 7: 05/17/18 01:17 05/17/18 01:17 Labs: Laboratory Results - last 24 hr 05/17/18 05/17/18 05/17/18 01:17 01:17 01:17 WBC 15.3 H RBC 3.61 L Hgb 10.2 L Hct 31.4 L MCV 87.0 MCH 28.2 MCHC 32.4 RDW 17.9 H Plt Count 609 H MPV 8.8 Neut % (Auto) 88.1 H Lymph % (Auto) 2.8 L [place] % (Auto) 8.6 H Eos % (Auto) 0.2 Baso % (Auto) 0.3 Neut # (Auto) 13.5 H Lymph # (Auto) 0.4 L [place] # (Auto) 1.3 H Eos # (Auto) 0.0 Baso # (Auto) 0.0 WBC Differential . Differential Comment Auto diff final Sodium 133 L Potassium 5.2 H Chloride 104 Carbon Dioxide 18.9 L Anion Gap 10 BUN 35 H Creatinine 1.86 H Estimated GFR 28 L POC Glucose Random Glucose 358 H D Lactic Acid 1.6 Calcium 9.6 Magnesium 1.6 Total Bilirubin 0.4 AST 35 ALT 31 Alkaline Phosphatase 329 H Total Protein 7.5 Albumin 3.4 Urine Color Urine Clarity Urine pH Ur Specific [place] Urine Protein Urine Glucose (UA) Urine Ketones Urine Occult Blood Urine Nitrate Urine Bilirubin Urine Urobilinogen Ur Leukocyte Esterase Urine RBC Urine WBC Ur Squamous Epith Cells Urine Bacteria Urine Mucus Micro UA Comment Ur Microscopic Review Urine Culture Comments 05/17/18 05/17/18 01:30 01:38 WBC RBC Hgb Hct MCV MCH MCHC RDW Plt Count MPV Neut % (Auto) Lymph % (Auto) [place] % (Auto) Eos % (Auto) Baso % (Auto) Neut # (Auto) Lymph # (Auto) [place] # (Auto) Eos # (Auto) Baso # (Auto) WBC Differential Differential Comment Sodium Potassium Chloride Carbon Dioxide Anion Gap BUN Creatinine Estimated GFR POC Glucose 358 H Random Glucose Lactic Acid Calcium Magnesium Total Bilirubin AST ALT Alkaline Phosphatase Total Protein Albumin Urine Color Yellow Urine Clarity Hazy H Urine pH 5.0 Ur Specific [place] 1.012 Urine Protein Negative Urine Glucose (UA) 500 or greater Urine Ketones Negative Urine Occult Blood Negative Urine Nitrate Negative Urine Bilirubin Negative Urine Urobilinogen Less than 2 Ur Leukocyte Esterase Small H Urine RBC 3 Urine WBC 7 H Ur Squamous Epith Cells 1 Urine Bacteria Occasional H Urine Mucus Few H Micro UA Comment Culture not ind Ur Microscopic Review Not Reportable Urine Culture Comments Culture not ind - Imaging Impressions Chest X-Ray 05/17/18 00:49 CONCLUSION: No acute cardiopulmonary disease identified. Caprini VTE Risk Assessment Caprini VTE Risk Assessment: Moderate/High Risk (score >= 2) Caprini Risk Assessment Model: Point Value = 1 Point Value = 2 Point Value = 3 Point Value = 5 Age 41-60 Minor surgery BMI > 25 kg/m2 Swollen legs Varicose veins or History of unexplained or recurrent spontaneous Oral contraceptives or hormone replacement Sepsis (< 1 month) Serious lung disease, including pneumonia (< 1 month) Abnormal pulmonary function Acute myocardial infarction Congestive heart failure (< 1 month) History of inflammatory bowel disease Medical patient at bed rest Age 61-74 Arthroscopic surgery Major open surgery (> 45 min) Laparoscopic surgery (> 45 min) Malignancy Confined to bed (> 72 hours) Immobilizing plaster cast Central venous access Age >= 75 History of VTE Family history of VTE Factor V Leiden Prothrombin [id number] Lupus anticoagulant Anticardiolipin antibodies Elevated serum homocysteine Heparin-induced thrombocytopenia Other congenital or acquired thrombophilia Stroke (< 1 month) Elective arthroplasty Hip, pelvis, or leg fracture Acute spinal cord injury (< 1 month) Prophylaxis Regimen: Total Risk Factor Score Risk Level Prophylaxis Regimen 0-1 Low Early ambulation 2 Moderate Order ONE of the following: *Sequential Compression Device (SCD) *Heparin 5000 units SQ BID 3-4 Higher Order ONE of the following medications: *Heparin 5000 units SQ TID *Enoxaparin/Lovenox 40 mg SQ daily (WT < 150 kg, CrCl > 30 mL/min) *Enoxaparin/Lovenox 30 mg SQ daily (WT < 150 kg, CrCl > 10-29 mL/min) *Enoxaparin/Lovenox 30 mg SQ BID (WT < 150 kg, CrCl > 30 mL/min) AND/OR *Sequential Compression Device (SCD) 5 or more Highest Order ONE of the following medications: *Heparin 5000 units SQ TID (Preferred with Epidurals) *Enoxaparin/Lovenox 40 mg SQ daily (WT < 150 kg, CrCl > 30 mL/min) *Enoxaparin/Lovenox 30 mg SQ daily (WT < 150 kg, CrCl > 10-29 mL/min) *Enoxaparin/Lovenox 30 mg SQ BID (WT < 150 kg, CrCl > 30 mL/min) AND *Sequential Compression Device (SCD) Assessment and Plan - Plan Assessment/plan: 1. Fever/leukocytosis Patient with reported fever to 102 at home WBCs 15.3 History of ESBL UTI status post Invanz DC'd 1 week ago Chest x-ray negative for acute process Urine culture/blood cultures pending Follow culture results, initiate antibiotics if indicated and consider infectious disease consult if fevers/leukocytosis persist 2. Emesis/regurgitation Patient reports emptying of her stomach contents x2 earlier today Seen by gastroenterology during previous hospitalization, started rifaximin, continue Reglan as patient with history of gastroparesis Last EGD/colonoscopy on 04/05/18 showed food residue in gastric body with normal duodenal mucosa. Colonoscopy revealed internal/external hemorrhoids Patient with follow-up gastroenterology at [facility] appointment on 06/01/18, continue home medications (once reconciled) and follow-up as outpatient Repeat gastroenterology consult if symptoms persist Consider azithromycin Patient has refused TPN 3. Diabetes mellitus Holding long-acting insulin as patient reports she is not tolerating p.o. Sliding-scale insulin Monitor blood glucose 4. History of DVT Continue home Lovenox once reconciled 5. GERD Continue PPI 6. History of polycystic kidney disease status post renal transplant Patient previously evaluated by transplant surgery on previous admission Continue Prograf (level pending) and prednisone Patient's embryology professor, Dr. Hughes consulted, appreciate recommendations 7. Thrombocytosis Status post bone marrow biopsy which was nonspecific Platelet count 609 FEN Diabetic diet NS at 70 cc/hr Electrolytes: Monitor and replete as needed Lovenox
[2018-05-17] MEDS: Insulin NovoLOG Aspart Correctional Sugar Inj SQ SCH ×4 (07:44→20:31)
[2018-05-17] MEDS: Sodium Chloride 0.9% 2 ML Flush BID IV.FLUSH SCH ×2 (09:48→20:24)
[2018-05-17] MEDS: Morphine Sulfate Inj 2 MG/ML Vial IV.PUSH PRN ×4 (09:48→23:26)
--- NOTE | 2018-05-17 10:52 | P.CONNP ---
History of Present Illness Service: Nephrology Consult date: 05/17/18 Requesting Physician: Dorina Singh Reason for Consult: Kidney transplant patient Primary Care Provider: Armani Batista Chief Complaint: Abdominal pain, nausea, vomiting, fever History of Present Illness: Patient is a 57-year-old with complicated history of kidney transplant in the ER and is bowel surgeries with removal of pancreas, multiple surgical anastomosis, recurrent nausea, regurgitation, GERD, peptic ulcer disease, dyspepsia, short bowel syndrome, frequent bowel movements, difficulties with feeding herself readily maintained on prednisone and Prograf, she has thrombocytosis as well. Patient has frequent admissions, she was recently discharged from [facility] and found to have ESBL E. coli treated with ertapenem, she completed the course and central line was removed, he continued to have GI complaints And was referred to [facility], she is waiting to get an appointment at [facility], I saw her yesterday because she has her usual complaints and told her to take Zithromax, she went home and then developed severe nausea and vomiting accompanied with high-grade fever of 102- complaint with chills,, left- sided abdominal pain which was severe and then she was starting to feel right- sided abdominal pain as well, patient came back with these complaints. Review of Systems Constitutional: Reports anorexia, Reports chills, Reports fatigue, Reports fever (s), Reports malaise Eyes: Denies blind spots, Denies blurry vision, Denies bulging eyes, Denies change in vision, Denies double vision, Denies discharge, Denies dry eyes, Denies floaters, Denies irritation, Denies itchy eyes, Denies loss of vision, Denies pain, Denies requires corrective lenses, Denies sensitivity to light, Denies other Ears, Nose, Mouth, and Throat: Denies abnormal hearing, Denies bleeding gums, Denies bad breath, Denies change in voice, Denies dental pain, Denies difficulty swallowing, Denies dizziness, Denies dry mouth, Denies ear discharge , Denies ear pain, Denies facial pain, Denies headache(s), Denies hearing loss, Denies hoarseness, Denies lip swelling, Denies nosebleed, Denies mouth lesions, Denies mouth pain, Denies nasal congestion, Denies nasal discharge, Denies nasal obstruction, Denies nasal trauma, Denies neck lump, Denies neck pain, Denies nose pain, Denies pain with swallowing, Denies poor balance, Denies post nasal drip, Denies ringing in the ears, Denies sinus pain, Denies sinus pressure , Denies sore throat, Denies throat swelling, Denies tongue swelling, Denies other Cardiovascular: Reports shortness of breath with activity Gastrointestinal: Reports abdominal pain, Reports belching, Reports bloating, Reports change in bowel habits, Reports constant urge to pass stool, Reports change in stools, Reports cramping, Reports excessive passing of gas, Reports feeling full early, Reports heartburn, Reports loose stools, Reports nausea, Reports vomiting Genitourinary: Reports other (Kidney transplant) Musculoskeletal: Reports body aches Skin/Breast: Reports other Neurologic: Reports weakness Psychiatric: Reports anxiety Endocrine: Denies cold intolerance, Denies excessive sweating, Denies flushing, Denies heat intolerance, Denies increased hunger, Denies increased thirst, Denies increased urination, Denies rapid, pounding, or irregular heartbeat, Denies other Allergic/Immunologic: Reports GI upset with certain foods PMFSH - History History Provided By: Patient - Medical History Medical History: Medical History (Last Reviewed 05/17/18 @ 10:55 by Miki Hughes MD) Diabetes Dumping syndrome Fracture, femur GERD (gastroesophageal reflux disease) Gastroparesis Gastroparesis History of ESBL E. coli infection History of hysterectomy Kidney failure Liver function failure - Surgical History Surgical History: Surgical History (Last Reviewed 05/17/18 @ 10:55 by Miki Hughes MD) H/O splenectomy (Acute) History of intestinal surgery (Acute) History of colectomy History of oophorectomy History of pancreatectomy Kidney transplant recipient Surgical procedure on lower extremity within past 6 months - Social History I have reviewed the patient's Social History: Yes - Tobacco History Second Hand Smoke Exposure: No Tobacco Use In Past 30 Days: No Smoking Status: Former smoker Tobacco Type: Cigarettes Smoking End Date: 2008 (smoke 1/4 PPD off and on for 10 years before quitting in 2008) - Alcohol History How Often Do You Have a Drink Containing Alcohol: Never - Substance Use History Substance History: No History of Abuse - Travel History History of Recent Travel: Yes (was in [facility]) Recent Travel in the [facility] Within the Last 8 Weeks: No Recent Travel Out of the Country Within the Last 8 Weeks: No - Immunization History Tetanus Immunization: <5 Years Medications and Allergies Active Medications: Active Medications Acetaminophen (Tylenol) 650 mg PO Q4H PRN PRN Reason: Temp > 100.4 Dextrose (D50w Vial) 50 ml IV.PUSH UNSCH PRN PRN Reason: PER HYPOGLYCEMIA PROTOCOL Diatrizoate Meglum/Diatrizoate Sod ( Gastromarlon Liq) 18 ml PO ONCE ONE; Protocol Stop: 05/17/18 10:41 Glucagon (Glucagon Inj) 1 mg OTHER PRN PRN PRN Reason: for Hypoglycemia Protocol Sodium Chloride (Ns Inj) 1,000 mls @ 70 mls/hr IV.CONT .[id number] RONALD Last Admin: 05/17/18 04:26 Dose: 70 mls/hr Insulin Aspart (Novolog Insulin Correctional Sugar Inj) 0 unit SQ ACHS AND 3AM RONALD; Protocol Last Admin: 05/17/18 07:44 Dose: 9 unit Morphine Sulfate (Morphine Inj) 2 mg IV.PUSH Q4H PRN PRN Reason: breakth pain/unable PO Last Admin: 05/17/18 09:48 Dose: 2 mg Ondansetron HCl (Zofran Inj) 4 mg IV.PUSH Q6H PRN PRN Reason: NAUSEA OR VOMITING Last Admin: 05/17/18 07:45 Dose: 4 mg Sodium Chloride (Ns Flush) 2 ml IV.FLUSH BID RONALD Last Admin: 05/17/18 09:48 Dose: Not Given Sodium Chloride (Ns Flush) 2 ml IV.FLUSH PRN PRN PRN Reason: FLUSH AFTER USING IV ACCESS Allergies Allergy/AdvReac Type Severity Reaction Status Date / Time metronidazole [From Flagyl] Allergy Mild Swelling Verified 04/22/18 16:51 of the Eye oxycodone Allergy Mild Itching, Verified 04/22/18 16:52 Generalized oxytetracycline Allergy Mild Hives Verified 03/27/18 18:27 [From Terramycin] fentanyl Allergy Edema Verified 04/05/18 17:07 filgrastim [From Neupogen] Allergy Anaphylaxis Verified 04/05/18 10:48 Home Medications Medication Instructions Recorded Confirmed Type Phenergan 25 mg PO Q6-8H PRN 03/27/18 05/17/18 History acetaminophen 650 mg PO Q4H PRN 03/27/18 05/17/18 History atorvastatin 20 mg PO DAILY 03/27/18 05/17/18 History carvedilol 12.5 mg PO BID 03/27/18 05/17/18 History diphenoxylate-atropine [Lomotil] 1 tab PO TID 03/27/18 05/17/18 History ergocalciferol (vitamin D2) 50,000 unit PO 3XW 03/27/18 05/17/18 History insulin glargine 12 unit SUBCUT QAM AND QHS 03/27/18 05/17/18 History insulin lispro 1 sliding scale dose SUBCUT UD 03/27/18 05/17/18 History [id number]-yftuzbdx-bgokayj [Creon] 3 cap PO TIDAC 03/27/18 05/17/18 History ondansetron 4 mg PO Q8H PRN 03/27/18 05/17/18 History prednisone 10 mg PO DAILY 03/27/18 05/17/18 History prochlorperazine maleate 10 mg PO Q6-8H PRN 03/27/18 05/17/18 History [Compazine] tacrolimus [Prograf] 4 mg PO Q12H 03/27/18 05/17/18 History dexlansoprazole [Dexilant] 60 mg PO DAILY 04/24/18 05/17/18 History metoclopramide HCl [Reglan] 10 mg PO TID 04/24/18 05/17/18 History Exam Vital signs: Vital Signs 05/17/18 00:20 05/17/18 00:37 05/17/18 00:46 Temperature 100.1 F H 100.3 F H Pulse Rate 97 H 85 Respiratory Rate 18 16 Blood Pressure 140/81 122/72 Pulse Oximetry 96 97 05/17/18 03:58 05/17/18 04:24 05/17/18 07:00 Temperature 98.8 F Pulse Rate 71 72 76 Respiratory Rate 15 21 Blood Pressure 123/62 123/62 Pulse Oximetry 97 99 05/17/18 07:05 05/17/18 09:50 05/17/18 10:00 Temperature 98.1 F 97.9 F Pulse Rate 76 68 Respiratory Rate 16 16 16 Blood Pressure 118/65 120/68 Pulse Oximetry 99 99 Intake & Output 05/16/18 05/17/18 05/17/18 18:59 06:59 18:59 Intake Total 500 / 500 Balance 500 / 500 Weight 56.699 kg Intake: IV 500 / 500 NS Inj 500 ML @ Wide Open IV. 500 / 500 SIG BOLUS ONE Rx#:[id number] Narrative: GENERAL: Well-nourished, well-developed patient. SKIN: Warm and dry. HEAD: Normocephalic. EYES: No scleral icterus. No injection or drainage. NECK: Supple, trachea midline. No JVD or lymphadenopathy. CARDIOVASCULAR: Regular rate and rhythm without murmurs, gallops, or rubs. RESPIRATORY: Breath sounds equal bilaterally. No accessory muscle use. GASTROINTESTINAL: Abdomen soft, multiple well-healed surgical scar tenderness on the left side Is some tenderness on the right side as well bowel sounds present. EXTREMITIES: No edema NEUROLOGICAL: Awake, alert, and oriented x 3. Non-focal. Results - Lab Results 05/17/18 01:17 05/17/18 01:17 Most recent lab results Calcium 9.6 mg/dL (8.5-10.1) 05/17/18 01:17 Magnesium 1.6 mg/dL (1.5-2.5) 05/17/18 01:17 Assessment and Plan - Assessment (1) Renal transplant recipient Code(s): Z94.0 - Kidney transplant status Status: Acute (2) Fever Code(s): R50.9 - Fever, unspecified Status: Acute (3) Abdominal pain Code(s): R10.9 - Unspecified abdominal pain Status: Acute (4) Acute renal failure Code(s): N17.9 - Acute kidney failure, unspecified Status: Acute (5) Gastroparesis Code(s): K31.84 - Gastroparesis Status: Acute (6) Nausea Code(s): R11.0 - Nausea Status: Acute (7) History of intestinal surgery Code(s): Z98.890 - Other specified postprocedural states Status: Acute (8) DM (diabetes mellitus) Code(s): E11.9 - Type 2 diabetes mellitus without complications Status: Acute (9) Renal insufficiency Code(s): N28.9 - Disorder of kidney and ureter, unspecified Status: Acute - Plan I will resume her prednisone 10 mg p.o. daily and tacrolimus 4 mg twice daily, Fever of unknown etiology most likely she has GI inflammation causing colitis, will get CT scan of the abdomen and pelvis with oral contrast Patient has been treated for urinary tract infection and cultures are pending Continue with GI medications Keep her well hydrated with IV fluids Maintain her blood sugars with insulin Patient unfortunately has short bowels with multiple surgical anastomosis and has a very difficult postoperative course She is going to be followed at [facility] office in [place] once she stabilizes. (2) Fever Qualifiers: Fever type: unspecified Qualified Code(s): R50.9 - Fever, unspecified (8) DM (diabetes mellitus) Qualifiers: Diabetes mellitus type: type 1
[2018-05-17] MEDS ORDERED: Diatrizoate Meglum/Diatrizoate Sod Liq 9 ML UDC PO ONE (11:00)
[2018-05-17] MEDS: predniSONE 10 MG Tablet PO SCH (12:03)
[2018-05-17] MEDS: Acetaminophen 325 MG Tablet PO PRN ×2 (15:50→20:31)
--- NOTE | 2018-05-17 16:44 | CT ---
EXAM DATE: 05/17/2018 4:21 PM EST AGE/SEX: 57 years / Female INDICATIONS: Lower abdominal pain and vomiting. Chills and fever. CLINICAL DATA: This is the patient's initial encounter. Patient reports that signs and symptoms have been present for 1 day and indicates a pain score of 5/10. MEDICAL/SURGICAL HISTORY: Gastroparesis. Gastroesophageal reflux disease. Diabetes. Kidney f ailure, dumping syndrome. Hysterectomy. Splenectomy. Oophorectomy, pancreatectomy, kidney transplan t. RADIATION DOSE: 5.01 CTDI (mGy) COMPARISON: [facility] – [place], CT ABDOMEN & PELVIS W/O CONTRAST, 04/22/2018. . TECHNIQUE: Multiple contiguous axial images were obtained through the abdomen. Images were obtained using multiple row detector helical technique. Using automated exposure control and adjustment of the mA and/or kV according to patient size, radiation dose was kept as low as reasonably achievable to o btain optimal diagnostic quality images. DICOM format image data is available electronically for rev iew and comparison. FINDINGS: Lower Lungs: The visualized lower lungs are clear. Liver: Stable with moderate amount of air in the biliary tree. Choledochojejunostomy is identified. S everal small hypodense areas within the liver are noted and appear stable. There are no findings susp icious for developing abscess. Spleen: Small splenic remnant is noted. Pancreas: The patient has undergone pancreatectomy and residual pancreatic tissue is difficult to id entified. There are no abnormal fluid collections in the peripancreatic bed. Kidneys: Elim Ira kidneys are absent. Transplanted kidney is identified in the right side of the pelvi s. Transplant kidney appears stable in appearance. Adrenal Glands: Difficult to identify. Aorta: The aorta and proximal iliac vessels are grossly unremarkable without aneurysmal dilation. Bowel/Mesentery: Postsurgical changes are noted in the left upper quadrant following what appears to be a gastrojejunostomy. As stated above there is a choledochojejunostomy with an air-fluid level aristeo ntified in the adjacent jejunum. There are no extraintestinal fluid collections suspicious for absces s. There is no evidence of free air or fluid. No significant bowel distention is identified. Abdominal Wall: Intact. Retroperitoneum: No evidence of adenopathy in the retrocrural, para-aortic, or deep pelvic regions. Inferior vena cava filter is identified. Bladder: Contours are smooth. Reproductive Organs: Uterus has been removed. There are no pelvic fluid collections. Inguinal: The inguinal region is unremarkable without evidence of adenopathy. Bony Structures: Unremarkable. CONCLUSION: 1. Extensive postsurgical changes which include a gastrojejunostomy, pancreatectomy, choledochojejun ostomy, splenectomy, cholecystectomy and hysterectomy. 2. Right pelvic renal transplant. 3. No evidence of intra-abdominal abscess, free fluid or free air. 4. No evidence of suspicious mass or developing lymphadenopathy. Electronically signed by: Uriel Clark MD 05/17/2018 4:42 PM EST
[2018-05-18] MEDS: Morphine Sulfate Inj 2 MG/ML Vial IV.PUSH PRN ×5 (03:59→20:34)
[2018-05-18] MEDS: Insulin NovoLOG Aspart Correctional Sugar Inj SQ SCH ×5 (04:08→20:41)
[2018-05-18 07:46] LABS: Baso # (Auto) 0.1 th/mm3 (0.0-0.2); Baso % (Auto) 0.8 % (0.0-2.0); Eos # (Auto) 0.1 th/mm3 (0.0-0.4); Eos % (Auto) 1.6 % (0.0-4.0); Hematocrit 29.2 % (35.0-46.0); Hemoglobin 9.6 gm/dL (11.6-15.3); Lymph # (Auto) 0.6 th/mm3 (1.0-4.8); Lymph % (Auto) 6.3 % (9.0-44.0); Mean Corpuscular HGB Conc 32.8 % (32.0-36.0); Mean Corpuscular Hemoglobin 28.9 pg (27.0-34.0); Mean Corpuscular Volume 88.1 fL (80.0-100.0); Mean Platelet Volume 9.2 fL (7.0-11.0); Mono # (Auto) 1.2 th/mm3 (0.0-0.9); Mono % (Auto) 13.2 % (0.0-8.0); Neut # (Auto) 7.1 th/mm3 (1.8-7.7); Neut % (Auto) 78.1 % (16.0-70.0); Platelet Count 534 th/mm3 (150-450); Red Blood Count 3.32 mil/mm3 (4.00-5.30); Red Cell Distribution Width 17.5 % (11.6-17.2); White Blood Count 9.1 th/mm3 (4.0-11.0)
[2018-05-18] MEDS: predniSONE 10 MG Tablet PO SCH (08:17)
[2018-05-18 08:28] LABS: Calcium 9.5 mg/dL (8.5-10.1); Carbon Dioxide 18.8 meq/L (21.0-32.0); Potassium 4.7 meq/L (3.5-5.1)
[2018-05-18] MEDS: Sodium Chloride 0.9% 2 ML Flush BID IV.FLUSH SCH ×2 (10:22→23:06)
[2018-05-18] MEDS ORDERED: Loratadine 10 MG Tablet PO PRN (11:00)
[2018-05-18] MEDS ORDERED: Sodium Chloride 0.65% Nasal Spray 45 ML Bottle EACH NARE PRN (11:00)
--- NOTE | 2018-05-18 11:09 | P.PN ---
Subjective Interval history: No much pain / Has a good UOP. Less nausea no more vomiting. Has diarrhea. No fever or chills. Physical Exam Vital signs: Vital Signs 05/17/18 12:00 05/17/18 13:20 05/17/18 16:00 Temperature 97.9 F 97.9 F 100.2 F H Pulse Rate 73 76 83 Respiratory Rate 18 16 19 Blood Pressure 160/79 H 118/77 162/75 H Pulse Oximetry 100 99 99 05/17/18 20:00 05/17/18 21:01 05/17/18 23:28 Temperature 98.1 F Pulse Rate 78 Respiratory Rate 18 18 18 Blood Pressure 127/58 L Pulse Oximetry 96 05/18/18 00:00 05/18/18 04:01 05/18/18 08:00 Temperature 98.0 F 98.0 F Pulse Rate 62 72 Respiratory Rate 18 18 19 Blood Pressure 135/71 153/81 H Pulse Oximetry 99 98 Intake & Output 05/17/18 05/18/18 05/18/18 18:59 06:59 18:59 Intake Total 1000 / 1000 800 / 800 Balance 1000 / 1000 800 / 800 Weight 56.69 kg 56.9 kg Intake: IV 1000 / 1000 NS Inj 1,000 ML @ 70 mls/hr IV. 1000 / 1000 CONT .[id number] [facility] Rx#:[id number] Oral 800 / 800 Other: # Voids 3 Weight On Admission 56.69 kg Narrative: Gen. appearance: 57 yo female, appears in nad. Respiratory: Lungs clear to auscultation bilaterally. No wheezes or rhonchi. Abdomen: Soft, diffusely tender to palpation, nondistended. No peritoneal signs. Musculoskeletal: No gross deformities. No edema. Skin: No obvious rashes or erythema. Neuro: Sensory and motor grossly intact. Cranial nerves II through XII grossly intact. Results - Labs CBC & Chem 7: 05/20/18 05:49 05/20/18 05:49 Laboratory Results - last 24 hr 05/17/18 05/17/18 05/17/18 01:17 11:56 18:20 WBC RBC Hgb Hct MCV MCH MCHC RDW Plt Count MPV Neut % (Auto) Lymph % (Auto) [place] % (Auto) Eos % (Auto) Baso % (Auto) Neut # (Auto) Lymph # (Auto) [place] # (Auto) Eos # (Auto) Baso # (Auto) WBC Differential Differential Comment Sodium Potassium Chloride Carbon Dioxide Anion Gap BUN Creatinine Estimated GFR POC Glucose 133 H 379 H Random Glucose Calcium Tacrolimus 5.9 05/17/18 05/18/18 05/18/18 20:25 04:07 06:32 WBC 9.1 RBC 3.32 L Hgb 9.6 L Hct 29.2 L MCV 88.1 MCH 28.9 MCHC 32.8 RDW 17.5 H Plt Count 534 H MPV 9.2 Neut % (Auto) 78.1 H Lymph % (Auto) 6.3 L [place] % (Auto) 13.2 H Eos % (Auto) 1.6 Baso % (Auto) 0.8 Neut # (Auto) 7.1 Lymph # (Auto) 0.6 L [place] # (Auto) 1.2 H Eos # (Auto) 0.1 Baso # (Auto) 0.1 WBC Differential . Differential Comment Auto diff final Sodium Potassium Chloride Carbon Dioxide Anion Gap BUN Creatinine Estimated GFR POC Glucose 289 H 209 H Random Glucose Calcium Tacrolimus 05/18/18 05/18/18 06:32 07:42 WBC RBC Hgb Hct MCV MCH MCHC RDW Plt Count MPV Neut % (Auto) Lymph % (Auto) [place] % (Auto) Eos % (Auto) Baso % (Auto) Neut # (Auto) Lymph # (Auto) [place] # (Auto) Eos # (Auto) Baso # (Auto) WBC Differential Differential Comment Sodium 138 Potassium 4.7 Chloride 111 H Carbon Dioxide 18.8 L Anion Gap 8 BUN 21 H Creatinine 1.19 H Estimated GFR 47 L POC Glucose 148 H Random Glucose 153 H D Calcium 9.5 Tacrolimus Microbiology 05/17/18 01:15 Blood - Peripheral Aerobic Blood Culture - Preliminary No growth in 1 day 05/17/18 01:15 Blood - Peripheral Anaerobic Blood Culture - Preliminary No growth in 1 day 05/17/18 01:19 Blood - Peripheral Aerobic Blood Culture - Preliminary No growth in 1 day 05/17/18 01:19 Blood - Peripheral Anaerobic Blood Culture - Preliminary No growth in 1 day - Imaging Impressions Abdomen/Pelvis CT 05/17/18 00:00 CONCLUSION: 1. Extensive postsurgical changes which include a gastrojejunostomy, pancreatectomy, choledochojejunostomy, splenectomy, cholecystectomy and hysterectomy. 2. Right pelvic renal transplant. 3. No evidence of intra-abdominal abscess, free fluid or free air. 4. No evidence of suspicious mass or developing lymphadenopathy. Assessment and Plan - Plan Fever/leukocytosis Patient with reported fever to 102 at home and with WBCs 15.3 on admission History of ESBL UTI status post Invanz DC'd 1 week ago Chest x-ray negative for acute process Urine culture with group D enterococcus and gram neg rafia. Start anabiotics daptomycin and ceftriaxone. Might need ID consult Blood cultures pending Follow culture results, initiate antibiotics if indicated and consider infectious disease consult if fevers/leukocytosis persist Emesis/regurgitation, improving Patient reports emptying of her stomach contents x2 earlier today Seen by gastroenterology during previous hospitalization, started rifaximin, continue Reglan as patient with history of gastroparesis Last EGD/colonoscopy on 04/05/18 showed food residue in gastric body with normal duodenal mucosa. Colonoscopy revealed internal/external hemorrhoids Patient with follow-up gastroenterology at [facility] appointment on 06/01/18, continue home medications (once reconciled) and follow-up as outpatient Repeat gastroenterology consult if symptoms persist Consider azithromycin Patient has refused TPN Diabetes mellitus Holding long-acting insulin as patient reports she is not tolerating p.o. 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
[2018-05-18] MEDS: Sod Chloride 0.9% Inj 1,000 ML IV.CONT SCH (11:46)
--- NOTE | 2018-05-18 14:23 | P.PNNP ---
Subjective Interval history: Patient is feeling better states the pain has went away urine output has improved Physical Exam Vital signs: Vital Signs 05/17/18 16:00 05/17/18 20:00 05/17/18 21:01 Temperature 100.2 F H 98.1 F Pulse Rate 83 78 Respiratory Rate 19 18 18 Blood Pressure 162/75 H 127/58 L Pulse Oximetry 99 96 05/17/18 23:28 05/18/18 00:00 05/18/18 04:01 Temperature 98.0 F Pulse Rate 62 Respiratory Rate 18 18 18 Blood Pressure 135/71 Pulse Oximetry 99 05/18/18 08:00 05/18/18 12:00 Temperature 98.0 F 98.4 F Pulse Rate 72 74 Respiratory Rate 19 17 Blood Pressure 153/81 H 142/75 H Pulse Oximetry 98 96 Intake & Output 05/17/18 05/18/18 05/18/18 18:59 06:59 18:59 Intake Total 1000 / 1000 800 / 800 1000 / 1000 Balance 1000 / 1000 800 / 800 1000 / 1000 Weight 56.69 kg 56.9 kg Intake: IV 1000 / 1000 1000 / 1000 NS Inj 1,000 ML @ 70 mls/hr IV. 1000 / 1000 1000 / 1000 CONT .[id number] [facility] Rx#:[id number] Oral 800 / 800 Other: # Voids 3 Weight On Admission 56.69 kg Narrative: Gen. appearance: 57 yo female, appears in nad. Respiratory: Lungs clear to auscultation bilaterally. No wheezes or rhonchi. Abdomen: Soft, diffusely tender to palpation, nondistended. No peritoneal signs. Musculoskeletal: No gross deformities. No edema. Skin: No obvious rashes or erythema. Neuro: Sensory and motor grossly intact. Cranial nerves II through XII grossly intact. Assessment and Plan - Assessment (1) Renal transplant recipient Code(s): Z94.0 - Kidney transplant status Status: Acute (2) Fever Code(s): R50.9 - Fever, unspecified Status: Acute Qualifiers: Fever type: unspecified Qualified Code(s): R50.9 - Fever, unspecified (3) Abdominal pain Code(s): R10.9 - Unspecified abdominal pain Status: Acute (4) Acute renal failure Code(s): N17.9 - Acute kidney failure, unspecified Status: Acute (5) Gastroparesis Code(s): K31.84 - Gastroparesis Status: Acute (6) Nausea Code(s): R11.0 - Nausea Status: Acute (7) History of intestinal surgery Code(s): Z98.890 - Other specified postprocedural states Status: Acute (8) DM (diabetes mellitus) Code(s): E11.9 - Type 2 diabetes mellitus without complications Status: Acute Qualifiers: Diabetes mellitus type: type 1 (9) Renal insufficiency Code(s): N28.9 - Disorder of kidney and ureter, unspecified Status: Acute - Plan I will resume her prednisone 10 mg p.o. daily and tacrolimus 4 mg twice daily, Patient has UTI and growing group D enterococcus and gram-negative I will prescribe daptomycin and ceftriaxone\wait for the culture Adjust antibiotic appropriately Continue with tacrolimus and prednisone Outpatient follow-up Protonix started
[2018-05-18] MEDS: SODIUM CHLOR 0.9% IV.SIG SCH (16:54)
[2018-05-18] MEDS: DAPTOMYCIN IV.SIG SCH (16:54)
[2018-05-18] MEDS: Lipase/Protease/Amylase 24/76/120 DR Capsule PO SCH (17:10)
[2018-05-18] MEDS: Carvedilol 12.5 MG Tablet PO SCH (20:35)
[2018-05-19] MEDS: Morphine Sulfate Inj 2 MG/ML Vial IV.PUSH PRN ×6 (00:15→21:06)
[2018-05-19] MEDS: Sod Chloride 0.9% Inj 1,000 ML IV.CONT SCH ×2 (00:15→14:03)
[2018-05-19] MEDS: Insulin NovoLOG Aspart Correctional Sugar Inj SQ SCH ×5 (04:20→23:25)
[2018-05-19 06:11] LABS: Baso % (Auto) 0.4 % (0.0-2.0); Eos # (Auto) 0.1 th/mm3 (0.0-0.4); Eos % (Auto) 1.1 % (0.0-4.0); Hematocrit 28.4 % (35.0-46.0); Hemoglobin 9.1 gm/dL (11.6-15.3); Lymph # (Auto) 0.6 th/mm3 (1.0-4.8); Lymph % (Auto) 4.8 % (9.0-44.0); Mean Corpuscular HGB Conc 32.2 % (32.0-36.0); Mean Corpuscular Hemoglobin 27.9 pg (27.0-34.0); Mean Corpuscular Volume 86.7 fL (80.0-100.0); Mean Platelet Volume 9.1 fL (7.0-11.0); Mono # (Auto) 1.6 th/mm3 (0.0-0.9); Mono % (Auto) 12.5 % (0.0-8.0); Neut # (Auto) 10.2 th/mm3 (1.8-7.7); Neut % (Auto) 81.2 % (16.0-70.0); Platelet Count 545 th/mm3 (150-450); Red Blood Count 3.27 mil/mm3 (4.00-5.30); Red Cell Distribution Width 17.8 % (11.6-17.2); White Blood Count 12.5 th/mm3 (4.0-11.0)
[2018-05-19 06:44] LABS: Alanine Aminotransferase 18 U/L (10-53); Albumin 2.6 g/dL (3.4-5.0); Alkaline Phosphatase 223 U/L (45-117); Anion Gap 11 meq/L (5-15); Aspartate Aminotransferase 8 U/L (15-37); Blood Urea Nitrogen 18 mg/dL (7-18); Calcium 9.2 mg/dL (8.5-10.1); Carbon Dioxide 19.1 meq/L (21.0-32.0); Chloride 107 meq/L (98-107); Glomerular Filtration Rate 50 mL/min (>89); Glucose,Random 263 mg/dL (74-106); Magnesium 1.6 mg/dL (1.5-2.5); Phosphorus 2.7 mg/dL (2.5-4.9); Potassium 4.4 meq/L (3.5-5.1); Sodium 137 meq/L (136-145); Total Protein 6.4 g/dL (6.4-8.2)
[2018-05-19] MEDS: Carvedilol 12.5 MG Tablet PO SCH ×2 (08:42→21:02)
[2018-05-19] MEDS: predniSONE 10 MG Tablet PO SCH (08:43)
[2018-05-19] MEDS: Lipase/Protease/Amylase 24/76/120 DR Capsule PO SCH ×3 (08:43→17:46)
[2018-05-19] MEDS: Sodium Chloride 0.9% 2 ML Flush BID IV.FLUSH SCH ×2 (08:43→21:02)
--- NOTE | 2018-05-19 10:18 | P.PN ---
Subjective Interval history: The patient is still with nausea and vomiting she also has abdominal pain. Says she follows with Dr. nicole current GI as outpatient in this area and also follows at. Will consult GI. Patient is no fever or chills. Has profuse diarrhea. Physical Exam Vital signs: Vital Signs 05/18/18 12:00 05/18/18 16:00 05/18/18 20:00 Temperature 98.4 F 99.0 F 98.6 F Pulse Rate 74 77 72 Respiratory Rate 17 18 17 Blood Pressure 142/75 H 172/79 H 152/59 H Pulse Oximetry 96 95 98 05/19/18 00:00 Temperature 98.4 F Pulse Rate 74 Respiratory Rate 17 Blood Pressure 140/75 Pulse Oximetry 97 Intake & Output 05/18/18 05/19/18 05/19/18 18:59 06:59 18:59 Intake Total 1775 / 1775 1480 / 1480 Output Total 5 / 5 Balance 1770 / 1770 1480 / 1480 Weight 56.9 kg Intake: IV 1200 / 1200 1000 / 1000 NS Inj 1,000 ML @ 70 mls/hr IV. 1000 / 1000 1000 / 1000 CONT .[id number] [facility] Rx#:[id number] Cubicin Inj 320 MG In NS Inj 100 / 100 100 ML @ 200 mls/hr IV.SIG Q24H [facility] Rx#:[id number] Rocephin Inj 1,000 MG In NS Inj 100 / 100 100 ML @ 200 mls/hr IV.SIG Q24H [facility] Rx#:[id number] Oral 575 / 575 480 / 480 Output: Urine 5 / 5 Other: # Voids 2 # Bowel Movements 3 Narrative: Gen. appearance: 57 yo female, appears in nad. Respiratory: Lungs clear to auscultation bilaterally. No wheezes or rhonchi. Abdomen: Soft, diffusely tender to palpation, nondistended. No peritoneal signs. Musculoskeletal: No gross deformities. No edema. Skin: No obvious rashes or erythema. Neuro: Sensory and motor grossly intact. Cranial nerves II through XII grossly intact. Results - Labs CBC & Chem 7: 05/19/18 04:49 05/19/18 04:49 Laboratory Results - last 24 hr 05/18/18 05/18/18 05/18/18 11:43 16:41 20:41 WBC RBC Hgb Hct MCV MCH MCHC RDW Plt Count MPV Neut % (Auto) Lymph % (Auto) [place] % (Auto) Eos % (Auto) Baso % (Auto) Neut # (Auto) Lymph # (Auto) [place] # (Auto) Eos # (Auto) Baso # (Auto) WBC Differential Differential Comment Sodium Potassium Chloride Carbon Dioxide Anion Gap BUN Creatinine Estimated GFR POC Glucose 299 H 384 H 316 H Random Glucose Calcium Phosphorus Magnesium Total Bilirubin AST ALT Alkaline Phosphatase Troponin I Total Protein Albumin 05/19/18 05/19/18 05/19/18 01:01 04:09 04:49 WBC RBC Hgb Hct MCV MCH MCHC RDW Plt Count MPV Neut % (Auto) Lymph % (Auto) [place] % (Auto) Eos % (Auto) Baso % (Auto) Neut # (Auto) Lymph # (Auto) [place] # (Auto) Eos # (Auto) Baso # (Auto) WBC Differential Differential Comment Sodium 137 Potassium 4.4 Chloride 107 Carbon Dioxide 19.1 L Anion Gap 11 BUN 18 Creatinine 1.12 H Estimated GFR 50 L POC Glucose 290 H Random Glucose 263 H D Calcium 9.2 Phosphorus 2.7 Magnesium 1.6 Total Bilirubin 0.2 AST 8 L ALT 18 Alkaline Phosphatase 223 H Troponin I Less than 0.02 L Total Protein 6.4 D Albumin 2.6 L 05/19/18 05/19/18 04:49 07:35 WBC 12.5 H RBC 3.27 L Hgb 9.1 L Hct 28.4 L MCV 86.7 MCH 27.9 MCHC 32.2 RDW 17.8 H Plt Count 545 H MPV 9.1 Neut % (Auto) 81.2 H Lymph % (Auto) 4.8 L [place] % (Auto) 12.5 H Eos % (Auto) 1.1 Baso % (Auto) 0.4 Neut # (Auto) 10.2 H Lymph # (Auto) 0.6 L [place] # (Auto) 1.6 H Eos # (Auto) 0.1 Baso # (Auto) 0.0 WBC Differential . Differential Comment Auto diff final Sodium Potassium Chloride Carbon Dioxide Anion Gap BUN Creatinine Estimated GFR POC Glucose 194 H Random Glucose Calcium Phosphorus Magnesium Total Bilirubin AST ALT Alkaline Phosphatase Troponin I Total Protein Albumin Microbiology 05/17/18 01:30 Clean Catch Urine Urine Culture - Preliminary gram negative rods Group D Enterococcus 11/20/18 01:15 Blood - Peripheral Aerobic Blood Culture - Preliminary No growth in 1 day 05/17/18 01:15 Blood - Peripheral Anaerobic Blood Culture - Preliminary No growth in 1 day 05/17/18 01:19 Blood - Peripheral Aerobic Blood Culture - Preliminary No growth in 1 day 05/17/18 01:19 Blood - Peripheral Anaerobic Blood Culture - Preliminary No growth in 1 day Assessment and Plan - Plan Fever/leukocytosis Patient with reported fever to 102 at home and with WBCs 15.3 on admission History of ESBL UTI status post Invanz DC'd 1 week ago Chest x-ray negative for acute process Urine culture with group D enterococcus and gram neg rafia. Start anabiotics daptomycin and ceftriaxone. Might need ID consult Blood cultures pending Follow culture results, initiate antibiotics if indicated and consider infectious disease consult if fevers/leukocytosis persist Emesis/regurgitation, improving Patient reports emptying of her stomach contents x2 earlier today Seen by gastroenterology during previous hospitalization, started rifaximin, continue Reglan as patient with history of gastroparesis Last EGD/colonoscopy on 04/05/18 showed food residue in gastric body with normal duodenal mucosa. Colonoscopy revealed internal/external hemorrhoids Patient with follow-up gastroenterology at [facility] appointment on 06/01/18, continue home medications (once reconciled) and follow-up as outpatient Repeat gastroenterology consult if symptoms persist Consider azithromycin Patient has refused TPN Consult her GI doctor Add Reglan 10 mg 3 times daily scheduled as per patient she is taking before meals. Diabetes mellitus Holding long-acting insulin as patient reports she is not tolerating p.o. 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
--- NOTE | 2018-05-19 15:45 | P.PNNP ---
Subjective Interval history: Patient with nausea, vomiting, abdominal pain, GI consulted Physical Exam Vital signs: Vital Signs 05/18/18 16:00 05/18/18 20:00 05/19/18 00:00 Temperature 99.0 F 98.6 F 98.4 F Pulse Rate 77 72 74 Respiratory Rate 18 17 17 Blood Pressure 172/79 H 152/59 H 140/75 Pulse Oximetry 95 98 97 05/19/18 08:00 05/19/18 12:00 Temperature 97.9 F 97.7 F Pulse Rate 69 73 Respiratory Rate 19 18 Blood Pressure 135/71 144/67 H Pulse Oximetry 97 96 Intake & Output 05/18/18 05/19/18 05/19/18 18:59 06:59 18:59 Intake Total 1775 / 1775 1480 / 1480 1100 / 1100 Output Total 5 / 5 Balance 1770 / 1770 1480 / 1480 1100 / 1100 Weight 56.9 kg Intake: IV 1200 / 1200 1000 / 1000 1100 / 1100 NS Inj 1,000 ML @ 70 mls/hr IV. 1000 / 1000 1000 / 1000 1000 / 1000 CONT .[id number] [facility] Rx#:[id number] Cubicin Inj 320 MG In NS Inj 100 / 100 100 ML @ 200 mls/hr IV.SIG Q24H [facility] Rx#:[id number] Rocephin Inj 1,000 MG In NS Inj 100 / 100 100 / 100 100 ML @ 200 mls/hr IV.SIG Q24H [facility] Rx#:[id number] Oral 575 / 575 480 / 480 Output: Urine 5 / 5 Other: # Voids 2 # Bowel Movements 3 Narrative: Gen. appearance: 57 yo female, appears in nad. Respiratory: Lungs clear to auscultation bilaterally. No wheezes or rhonchi. Abdomen: Soft, diffusely tender to palpation, nondistended. No peritoneal signs. Musculoskeletal: No gross deformities. No edema. Skin: No obvious rashes or erythema. Neuro: Sensory and motor grossly intact. Cranial nerves II through XII grossly intact. Assessment and Plan - Assessment (1) Renal transplant recipient Code(s): Z94.0 - Kidney transplant status Status: Acute (2) Fever Code(s): R50.9 - Fever, unspecified Status: Acute Qualifiers: Fever type: unspecified Qualified Code(s): R50.9 - Fever, unspecified (3) Abdominal pain Code(s): R10.9 - Unspecified abdominal pain Status: Acute (4) Acute renal failure Code(s): N17.9 - Acute kidney failure, unspecified Status: Acute (5) Gastroparesis Code(s): K31.84 - Gastroparesis Status: Acute (6) Nausea Code(s): R11.0 - Nausea Status: Acute (7) History of intestinal surgery Code(s): Z98.890 - Other specified postprocedural states Status: Acute (8) DM (diabetes mellitus) Code(s): E11.9 - Type 2 diabetes mellitus without complications Status: Acute Qualifiers: Diabetes mellitus type: type 1 (9) Renal insufficiency Code(s): N28.9 - Disorder of kidney and ureter, unspecified Status: Acute - Plan I will resume her prednisone 10 mg p.o. daily and tacrolimus 4 mg twice daily, tacrolimus 10 GI consulted ongoing GI issues Patient has UTI and growing VRE and gram-negative STARTED daptomycin and ceftriaxone\ Adjust antibiotic appropriately Continue with tacrolimus and prednisone Outpatient follow-up Protonix
[2018-05-19] MEDS: Enoxaparin Inj 100 MG/ML Syringe SQ SCH (16:29)
[2018-05-19] MEDS: Metoclopramide 10 MG Tablet PO SCH (17:46)
[2018-05-19] MEDS: SODIUM CHLOR 0.9% IV.SIG SCH (17:49)
[2018-05-19] MEDS: DAPTOMYCIN IV.SIG SCH (17:49)
--- NOTE | 2018-05-19 22:28 | ECG ---
Date Performed: 05/19/2018 Time Performed: 07:59:20 PTAGE: 57 years EKG: Sinus rhythm LOW QRS VOLTAGE IN PRECORDIAL LEADS BORDERLINE ECG PREVIOUS TRACING : 04/27/2018 15.35 Since the previous tracing, no significant change noted DOCTOR: Rishi Rodrigues Interpretating Date/Time 05/19/2018 22:27:25
[2018-05-19] MEDS: Insulin Detemir Inj 1,000 UNIT/10 ML Vial SQ SCH (23:25)
[2018-05-20] MEDS: Morphine Sulfate Inj 2 MG/ML Vial IV.PUSH PRN ×6 (00:20→20:53)
[2018-05-20] MEDS: Insulin NovoLOG Aspart Correctional Sugar Inj SQ SCH ×5 (04:19→20:51)
[2018-05-20] MEDS: Sod Chloride 0.9% Inj 1,000 ML IV.CONT SCH ×2 (06:12→18:38)
[2018-05-20 07:36] LABS: Baso # (Auto) 0.1 th/mm3 (0.0-0.2); Baso % (Auto) 0.9 % (0.0-2.0); Eos # (Auto) 0.2 th/mm3 (0.0-0.4); Eos % (Auto) 2.3 % (0.0-4.0); Hematocrit 27.1 % (35.0-46.0); Hemoglobin 9.3 gm/dL (11.6-15.3); Lymph # (Auto) 0.7 th/mm3 (1.0-4.8); Lymph % (Auto) 8.6 % (9.0-44.0); Mean Corpuscular HGB Conc 34.6 % (32.0-36.0); Mean Corpuscular Hemoglobin 29.8 pg (27.0-34.0); Mean Corpuscular Volume 86.3 fL (80.0-100.0); Mean Platelet Volume 9.3 fL (7.0-11.0); Mono # (Auto) 1.1 th/mm3 (0.0-0.9); Mono % (Auto) 14.1 % (0.0-8.0); Neut # (Auto) 5.9 th/mm3 (1.8-7.7); Neut % (Auto) 74.1 % (16.0-70.0); Platelet Count 501 th/mm3 (150-450); Red Blood Count 3.13 mil/mm3 (4.00-5.30); Red Cell Distribution Width 17.4 % (11.6-17.2)
[2018-05-20] MEDS: Sodium Chloride 0.9% 2 ML Flush BID IV.FLUSH SCH ×2 (08:23→20:48)
[2018-05-20] MEDS: Insulin Detemir Inj 1,000 UNIT/10 ML Vial SQ SCH ×2 (08:25→20:51)
[2018-05-20] MEDS: Lipase/Protease/Amylase 24/76/120 DR Capsule PO SCH ×3 (08:25→18:02)
[2018-05-20] MEDS: predniSONE 10 MG Tablet PO SCH (08:25)
[2018-05-20] MEDS: Carvedilol 12.5 MG Tablet PO SCH ×2 (08:26→20:47)
[2018-05-20] MEDS: Metoclopramide 10 MG Tablet PO SCH ×3 (08:26→18:02)
[2018-05-20 08:34] LABS: Alanine Aminotransferase 14 U/L (10-53); Albumin 2.6 g/dL (3.4-5.0); Alkaline Phosphatase 194 U/L (45-117); Anion Gap 8 meq/L (5-15); Aspartate Aminotransferase 11 U/L (15-37); Blood Urea Nitrogen 21 mg/dL (7-18); Calcium 9.2 mg/dL (8.5-10.1); Carbon Dioxide 20.6 meq/L (21.0-32.0); Chloride 109 meq/L (98-107); Glomerular Filtration Rate 45 mL/min (>89); Glucose,Random 157 mg/dL (74-106); Potassium 4.7 meq/L (3.5-5.1); Sodium 138 meq/L (136-145); Total Protein 6.3 g/dL (6.4-8.2)
--- NOTE | 2018-05-20 12:42 | P.CONGI ---
History of Present Illness Consult date: 05/20/18 Consult reason: Abdominal pain Nausea vomiting Immunosuppressive with fever History of E. coli and ESBL Chief complaint: Immunosupressed Dejon, h/o E-Coli, ESBL History of Present Illness: This patient is a 57-year-old female with a past medical history significant for diabetes, polycystic kidney disease status post right transplant, dumping syndrome previously on TPN, chronic diarrhea, GERD, gastroparesis, DVT on Lovenox, history of ESBL, history of E. coli. Surgical history includes hysterectomy pancreatectomy, choledochojejunostomy, splenectomy, cholecystectomy , right pelvic renal transplant and splenectomy. Patient presented to the emergency room at [facility] on 05/17/2018 with complaint of right lower quadrant and left upper quadrant abdominal pain with accompanied fever chills and nausea and vomiting. Patient reported fever with a temperature of 102 prior to admission. Upon consultation, patient reports that she is concerned about possible obstruction. Patient endorses that she has not been able to eat solid food without regurgitation of solid food for the last 2-3 weeks. She reports abdominal pain and describes it as pressure that is worse after meals. Patient states that her discomfort is in her left upper quadrant and right lower quadrant. Patient endorses feeling reflux of solid food after meals with bloating. She reports throat discomfort with acid reflux. Patient states that she takes Dexilant to control reflux. States that she eats her last meal of the day each day at 4 PM but is still experiencing the symptoms. Patient reports last EGD done 1 month ago and she has an appointment to follow- up with Dr. Pollard on 06/01/2018 to obtain pathology results/ reports. Patient endorses that she has chronic diarrhea and usual bowel movements are light brown in color-on Creon-with no noted bleeding in small amounts of undigested food. Our service has been consulted to evaluate patient's report of abdominal pain with nausea and vomiting <Yuliana Christine - Last Filed: 05/20/18 12:43> Review of Systems All other systems reviewed negative except as stated in HPI <Yuliana Christine - Last Filed: 05/20/18 12:43> PMFSH - History History Provided By: Patient - Medical History Medical History: Medical History (Last Reviewed 05/17/18 @ 10:55 by Miki Hughes MD) Diabetes Dumping syndrome Fracture, femur GERD (gastroesophageal reflux disease) Gastroparesis Gastroparesis History of ESBL E. coli infection History of hysterectomy Kidney failure Liver function failure - Surgical History Surgical History: Surgical History (Last Reviewed 05/17/18 @ 10:55 by Miki Hughes MD) H/O splenectomy (Acute) History of intestinal surgery (Acute) History of colectomy History of oophorectomy History of pancreatectomy Kidney transplant recipient Surgical procedure on lower extremity within past 6 months - Tobacco History Second Hand Smoke Exposure: No Tobacco Use In Past 30 Days: No Smoking Status: Never smoker Tobacco Type: Cigarettes Smoking End Date: 2008 (smoke / PPD off and on for 10 years before quitting in 2008) - Alcohol History How Often Do You Have a Drink Containing Alcohol: Never - Substance Use History Substance History: No History of Abuse - Travel History History of Recent Travel: Yes (was in [place] then [place]) Recent Travel in the [facility] Within the Last 8 Weeks: No Recent Travel Out of the Country Within the Last 8 Weeks: No - Immunization History Tetanus Immunization: <5 Years Hx Influenza Vaccine This Season: Yes <Yuliana Christine - Last Filed: 05/20/18 12:43> - Medical History Medical History: Medical History (Last Reviewed 05/17/18 @ 10:55 by Miki Hughes MD) Diabetes Dumping syndrome Fracture, femur GERD (gastroesophageal reflux disease) Gastroparesis Gastroparesis History of ESBL E. coli infection History of hysterectomy Kidney failure Liver function failure - Surgical History Surgical History: Surgical History (Last Reviewed 05/17/18 @ 10:55 by Miki Hughes MD) H/O splenectomy (Acute) History of intestinal surgery (Acute) History of colectomy History of oophorectomy History of pancreatectomy Kidney transplant recipient Surgical procedure on lower extremity within past 6 months <Dominique Kapoor - Last Filed: 05/20/18 13:54> Medications and Allergies Active Medications: Active Medications Acetaminophen (Tylenol) 650 mg PO Q4H PRN PRN Reason: Temp > 100.4 Last Admin: 05/17/18 20:31 Dose: 650 mg Lipase/Protease/Amylase (Creon Dr 24/76/120) 3 cap PO TID RONALD Last Admin: 05/20/18 08:25 Dose: 3 cap Carvedilol (Coreg) 12.5 mg PO BID RONALD Last Admin: 05/20/18 08:26 Dose: 12.5 mg Dextrose (D50w Vial) 50 ml IV.PUSH UNSCH PRN PRN Reason: PER HYPOGLYCEMIA PROTOCOL Enoxaparin Sodium (Lovenox Inj) 90 mg SQ Q24H [facility] Last Admin: 05/19/18 16:29 Dose: 90 mg Ergocalciferol (Vitamin D2) 50,000 unit PO MOWEFR [facility] Last Admin: 05/18/18 16:43 Dose: 50,000 unit Glucagon (Glucagon Inj) 1 mg OTHER PRN PRN PRN Reason: for Hypoglycemia Protocol Sodium Chloride (Ns Inj) 1,000 mls @ 70 mls/hr IV.CONT .[id number] [facility] Last Admin: 05/20/18 06:12 Dose: 70 mls/hr Ceftriaxone Sodium 1,000 mg/ (Sodium Chloride) 100 mls @ 200 mls/hr IV.SIG Q24H [facility] Last Infusion: 05/19/18 15:12 Dose: Infused Daptomycin 320 mg/ Sodium (Chloride) 100 mls @ 200 mls/hr IV.SIG Q24H [facility] Last Infusion: 05/19/18 18:27 Dose: Infused Insulin Aspart (Novolog Insulin Correctional Sugar Inj) 0 unit SQ ACHS AND 3AM RONALD; Protocol Last Admin: 05/20/18 08:25 Dose: 1 unit Insulin Detemir (Levemir Inj) 7 unit SQ BID [facility] Last Admin: 05/20/18 08:25 Dose: 7 unit Loratadine (Claritin) 10 mg PO DAILY PRN PRN Reason: congestion Last Admin: 05/18/18 10:38 Dose: 10 mg Metoclopramide HCl (Reglan Inj) 5 mg IV.PUSH Q8H PRN; Protocol PRN Reason: gastroporesis Last Admin: 05/19/18 08:49 Dose: 5 mg Metoclopramide HCl (Reglan) 10 mg PO TID [facility] Last Admin: 05/20/18 08:26 Dose: 10 mg Morphine Sulfate (Morphine Inj) 2 mg IV.PUSH Q4H PRN PRN Reason: breakth pain/unable PO Last Admin: 05/20/18 08:23 Dose: 2 mg Ondansetron HCl (Zofran Inj) 4 mg IV.PUSH Q6H PRN PRN Reason: NAUSEA OR VOMITING Last Admin: 05/20/18 04:05 Dose: 4 mg Pantoprazole Sodium (Protonix) 40 mg PO DAILY [facility] Last Admin: 05/20/18 08:26 Dose: 40 mg Prednisone (Deltasone) 10 mg PO DAILY [facility] Last Admin: 05/20/18 08:25 Dose: 10 mg Sodium Chloride (Ns Flush) 2 ml IV.FLUSH BID [facility] Last Admin: 05/20/18 08:23 Dose: 2 ml Sodium Chloride (Ns Flush) 2 ml IV.FLUSH PRN PRN PRN Reason: FLUSH AFTER USING IV ACCESS Sodium Chloride (Berthoud Nasal [place]) 2 spray EACH NARE Q4H PRN PRN Reason: congestion Tacrolimus (Prograf) 4 mg PO BID [facility] Last Admin: 05/20/18 08:25 Dose: 4 mg <Yuliana Christine - Last Filed: 05/20/18 12:43> Active Medications: Active Medications Acetaminophen (Tylenol) 650 mg PO Q4H PRN PRN Reason: Temp > 100.4 Last Admin: 05/17/18 20:31 Dose: 650 mg Lipase/Protease/Amylase (Donovan Weinberg 24/76/120) 3 cap PO TID [facility] Last Admin: 05/20/18 12:50 Dose: 3 cap Carvedilol (Coreg) 12.5 mg PO BID [facility] Last Admin: 05/20/18 08:26 Dose: 12.5 mg Dextrose (D50w Vial) 50 ml IV.PUSH UNSCH PRN PRN Reason: PER HYPOGLYCEMIA PROTOCOL Enoxaparin Sodium (Lovenox Inj) 90 mg SQ Q24H [facility] Last Admin: 05/19/18 16:29 Dose: 90 mg Ergocalciferol (Vitamin D2) 50,000 unit PO MOWEFR [facility] Last Admin: 05/18/18 16:43 Dose: 50,000 unit Glucagon (Glucagon Inj) 1 mg OTHER PRN PRN PRN Reason: for Hypoglycemia Protocol Sodium Chloride (Ns Inj) 1,000 mls @ 70 mls/hr IV.CONT .[id number] [facility] Last Admin: 05/20/18 06:12 Dose: 70 mls/hr Ceftriaxone Sodium 1,000 mg/ (Sodium Chloride) 100 mls @ 200 mls/hr IV.SIG Q24H [facility] Last Infusion: 05/19/18 15:12 Dose: Infused Daptomycin 320 mg/ Sodium (Chloride) 100 mls @ 200 mls/hr IV.SIG Q24H [facility] Last Infusion: 05/19/18 18:27 Dose: Infused Insulin Aspart (Novolog Insulin Correctional Sugar Inj) 0 unit SQ ACHS AND 3AM [facility]; Protocol Last Admin: 05/20/18 12:50 Dose: 5 unit Insulin Detemir (Levemir Inj) 7 unit SQ BID [facility] Last Admin: 05/20/18 08:25 Dose: 7 unit Loratadine (Claritin) 10 mg PO DAILY PRN PRN Reason: congestion Last Admin: 05/18/18 10:38 Dose: 10 mg Metoclopramide HCl (Reglan Inj) 5 mg IV.PUSH Q8H PRN; Protocol PRN Reason: gastroporesis Last Admin: 05/19/18 08:49 Dose: 5 mg Metoclopramide HCl (Reglan) 10 mg PO TID [facility] Last Admin: 05/20/18 12:50 Dose: 10 mg Morphine Sulfate (Morphine Inj) 2 mg IV.PUSH Q4H PRN PRN Reason: breakth pain/unable PO Last Admin: 05/20/18 12:48 Dose: 2 mg Ondansetron HCl (Zofran Inj) 4 mg IV.PUSH Q6H PRN PRN Reason: NAUSEA OR VOMITING Last Admin: 05/20/18 12:47 Dose: 4 mg Pantoprazole Sodium (Protonix) 40 mg PO DAILY [facility] Last Admin: 05/20/18 08:26 Dose: 40 mg Prednisone (Deltasone) 10 mg PO DAILY [facility] Last Admin: 05/20/18 08:25 Dose: 10 mg Sodium Chloride (Ns Flush) 2 ml IV.FLUSH BID [facility] Last Admin: 05/20/18 08:23 Dose: 2 ml Sodium Chloride (Ns Flush) 2 ml IV.FLUSH PRN PRN PRN Reason: FLUSH AFTER USING IV ACCESS Sodium Chloride (Berthoud Nasal [place]) 2 spray EACH NARE Q4H PRN PRN Reason: congestion Tacrolimus (Prograf) 4 mg PO BID [facility] Last Admin: 05/20/18 08:25 Dose: 4 mg <Emelia,Mohammad A - Last Filed: 05/20/18 13:54> Allergies Allergy/AdvReac Type Severity Reaction Status Date / Time metronidazole [From Flagyl] Allergy Mild Swelling Verified 04/22/18 16:51 of the Eye oxycodone Allergy Mild Itching, Verified 04/22/18 16:52 Generalized oxytetracycline Allergy Mild Hives Verified 03/27/18 18:27 [From Terramycin] fentanyl Allergy Edema Verified 04/05/18 17:07 filgrastim [From Neupogen] Allergy Anaphylaxis Verified 04/05/18 10:48 Home Medications Medication Instructions Recorded Confirmed Type Phenergan 25 mg PO Q6-8H PRN 03/27/18 05/17/18 History acetaminophen 650 mg PO Q4H PRN 03/27/18 05/17/18 History atorvastatin 20 mg PO DAILY 03/27/18 05/17/18 History carvedilol 12.5 mg PO BID 03/27/18 05/17/18 History diphenoxylate-atropine [Lomotil] 1 tab PO TID 03/27/18 05/17/18 History ergocalciferol (vitamin D2) 50,000 unit PO 3XW 03/27/18 05/17/18 History insulin glargine 12 unit SUBCUT QAM AND QHS 03/27/18 05/17/18 History insulin lispro 1 sliding scale dose SUBCUT UD 03/27/18 05/17/18 History [id number] [Creon] 3 cap PO TIDAC 03/27/18 05/17/18 History ondansetron 4 mg PO Q8H PRN 03/27/18 05/17/18 History prednisone 10 mg PO DAILY 03/27/18 05/17/18 History prochlorperazine maleate 10 mg PO Q6-8H PRN 03/27/18 05/17/18 History [Compazine] tacrolimus [Prograf] 4 mg PO Q12H 03/27/18 05/17/18 History dexlansoprazole [Dexilant] 60 mg PO DAILY 04/24/18 05/17/18 History metoclopramide HCl [Reglan] 10 mg PO TID 04/24/18 05/17/18 History Exam Vital signs: Vital Signs 05/19/18 16:00 05/19/18 20:00 05/19/18 23:16 Temperature 97.6 F 98.6 F Pulse Rate 66 78 Respiratory Rate 19 18 18 Blood Pressure 144/71 H 122/62 Pulse Oximetry 98 96 05/20/18 00:00 05/20/18 08:00 Temperature 97.8 F 98.4 F Pulse Rate 69 66 Respiratory Rate 17 17 Blood Pressure 136/74 124/77 Pulse Oximetry 95 97 Intake & Output 05/19/18 05/20/18 05/20/18 18:59 06:59 18:59 Intake Total 1200 / 1200 1000 / 1000 Balance 1200 / 1200 1000 / 1000 Weight 60.1 kg Intake: IV 1200 / 1200 1000 / 1000 NS Inj 1,000 ML @ 70 mls/hr IV. 1000 / 1000 1000 / 1000 CONT .[id number] [facility] Rx#:[id number] Cubicin Inj 320 MG In NS Inj 100 / 100 100 ML @ 200 mls/hr IV.SIG Q24H [facility] Rx#:[id number] Rocephin Inj 1,000 MG In NS Inj 100 / 100 100 ML @ 200 mls/hr IV.SIG Q24H [facility] Rx#:[id number] Other: # Voids 4 Date of Last Bowel Movement 05/19/18 # Bowel Movements 3 - Constitutional no acute distress, chronically ill appearing - Routine HEENT Exam Head: Present: normocephalic - Routine Respiratory Exam Present: CTA bilaterally. Absent: accessory muscle use - Routine Cardiovascular Exam Present: RRR - Routine Abdominal Exam Present: soft, normoactive bowel sounds, tenderness, guarding, surgical scars. Absent: distended, firm, rigid - Routine Extremities Exam Present: pulses intact. Absent: cyanosis, edema - Routine Skin Exam Present: dry, warm. Absent: pallor - Routine Neurological Exam Present: alert, oriented X3 <Christine,Yuliana - Last Filed: 05/20/18 12:43> Vital signs: Vital Signs 05/19/18 16:00 05/19/18 20:00 05/19/18 23:16 Temperature 97.6 F 98.6 F Pulse Rate 66 78 Respiratory Rate 19 18 18 Blood Pressure 144/71 H 122/62 Pulse Oximetry 98 96 05/20/18 00:00 05/20/18 08:00 05/20/18 12:00 Temperature 97.8 F 98.4 F 98.4 F Pulse Rate 69 66 65 Respiratory Rate 17 17 18 Blood Pressure 136/74 124/77 119/82 Pulse Oximetry 95 97 96 Intake & Output 11/05/20/18 05/20/18 18:59 06:59 18:59 Intake Total 1200 / 1200 1000 / 1000 Balance 1200 / 1200 1000 / 1000 Weight 60.1 kg Intake: IV 1200 / 1200 1000 / 1000 NS Inj 1,000 ML @ 70 mls/hr IV. 1000 / 1000 1000 / 1000 CONT .[id number] [facility]ONAL[facility] Rx#:[id number] Cubicin Inj 320 MG In NS Inj 100 / 100 100 ML @ 200 mls/hr IV.SIG Q24H [facility] Rx#:[id number] Rocephin Inj 1,000 MG In NS Inj 100 / 100 100 ML @ 200 mls/hr IV.SIG Q24H [facility] Rx#:[id number] Other: # Voids 4 Date of Last Bowel Movement 05/19/18 # Bowel Movements 3 <Dominique Kapoor A - Last Filed: 05/20/18 13:54> Results - Labs CBC & Chem 7: 05/20/18 05:49 05/20/18 05:49 Labs: Laboratory Results - last 24 hr 05/19/18 05/19/18 05/19/18 12:48 17:43 23:15 WBC RBC Hgb Hct MCV MCH MCHC RDW Plt Count MPV Neut % (Auto) Lymph % (Auto) [place] % (Auto) Eos % (Auto) Baso % (Auto) Neut # (Auto) Lymph # (Auto) [place] # (Auto) Eos # (Auto) Baso # (Auto) WBC Differential Differential Comment Sodium Potassium Chloride Carbon Dioxide Anion Gap BUN Creatinine Estimated GFR POC Glucose 388 H 354 H 406 H Random Glucose Calcium Total Bilirubin AST ALT Alkaline Phosphatase Total Protein Albumin 05/20/18 05/20/18 05/20/18 04:10 05:49 05:49 WBC 8.0 RBC 3.13 L Hgb 9.3 L Hct 27.1 L MCV 86.3 MCH 29.8 MCHC 34.6 RDW 17.4 H Plt Count 501 H MPV 9.3 Neut % (Auto) 74.1 H Lymph % (Auto) 8.6 L [place] % (Auto) 14.1 H Eos % (Auto) 2.3 Baso % (Auto) 0.9 Neut # (Auto) 5.9 Lymph # (Auto) 0.7 L [place] # (Auto) 1.1 H Eos # (Auto) 0.2 Baso # (Auto) 0.1 WBC Differential . Differential Comment Auto diff final Sodium 138 Potassium 4.7 Chloride 109 H Carbon Dioxide 20.6 L Anion Gap 8 BUN 21 H Creatinine 1.24 H Estimated GFR 45 L POC Glucose 166 H Random Glucose 157 H D Calcium 9.2 Total Bilirubin 0.1 L AST 11 L ALT 14 Alkaline Phosphatase 194 H Total Protein 6.3 L Albumin 2.6 L 05/20/18 05/20/18 07:52 11:32 WBC RBC Hgb Hct MCV MCH MCHC RDW Plt Count MPV Neut % (Auto) Lymph % (Auto) [place] % (Auto) Eos % (Auto) Baso % (Auto) Neut # (Auto) Lymph # (Auto) [place] # (Auto) Eos # (Auto) Baso # (Auto) WBC Differential Differential Comment Sodium Potassium Chloride Carbon Dioxide Anion Gap BUN Creatinine Estimated GFR POC Glucose 192 H 267 H Random Glucose Calcium Total Bilirubin AST ALT Alkaline Phosphatase Total Protein Albumin <Yuliana Christine - Last Filed: 05/20/18 12:43> - Labs CBC & Chem 7: 05/20/18 05:49 05/20/18 05:49 Labs: Laboratory Results - last 24 hr 05/19/18 05/19/18 05/20/18 17:43 23:15 04:10 WBC RBC Hgb Hct MCV MCH MCHC RDW Plt Count MPV Neut % (Auto) Lymph % (Auto) [place] % (Auto) Eos % (Auto) Baso % (Auto) Neut # (Auto) Lymph # (Auto) [place] # (Auto) Eos # (Auto) Baso # (Auto) WBC Differential Differential Comment Sodium Potassium Chloride Carbon Dioxide Anion Gap BUN Creatinine Estimated GFR POC Glucose 354 H 406 H 166 H Random Glucose Calcium Total Bilirubin AST ALT Alkaline Phosphatase Total Protein Albumin Tacrolimus 05/20/18 05/20/18 05/20/18 05:49 05:49 05:49 WBC 8.0 RBC 3.13 L Hgb 9.3 L Hct 27.1 L MCV 86.3 MCH 29.8 MCHC 34.6 RDW 17.4 H Plt Count 501 H MPV 9.3 Neut % (Auto) 74.1 H Lymph % (Auto) 8.6 L [place] % (Auto) 14.1 H Eos % (Auto) 2.3 Baso % (Auto) 0.9 Neut # (Auto) 5.9 Lymph # (Auto) 0.7 L [place] # (Auto) 1.1 H Eos # (Auto) 0.2 Baso # (Auto) 0.1 WBC Differential . Differential Comment Auto diff final Sodium 138 Potassium 4.7 Chloride 109 H Carbon Dioxide 20.6 L Anion Gap 8 BUN 21 H Creatinine 1.24 H Estimated GFR 45 L POC Glucose Random Glucose 157 H D Calcium 9.2 Total Bilirubin 0.1 L AST 11 L ALT 14 Alkaline Phosphatase 194 H Total Protein 6.3 L Albumin 2.6 L Tacrolimus 12.0 05/20/18 05/20/18 07:52 11:32 WBC RBC Hgb Hct MCV MCH MCHC RDW Plt Count MPV Neut % (Auto) Lymph % (Auto) [place] % (Auto) Eos % (Auto) Baso % (Auto) Neut # (Auto) Lymph # (Auto) [place] # (Auto) Eos # (Auto) Baso # (Auto) WBC Differential Differential Comment Sodium Potassium Chloride Carbon Dioxide Anion Gap BUN Creatinine Estimated GFR POC Glucose 192 H 267 H Random Glucose Calcium Total Bilirubin AST ALT Alkaline Phosphatase Total Protein Albumin Tacrolimus <Dominique Kapoor A - Last Filed: 05/20/18 13:54> Assessment and Plan (1) Abdominal pain Status: Acute Code(s): R10.9 - Unspecified abdominal pain - Plan This patient is a 57-year-old female with a past medical history significant for diabetes, polycystic kidney disease status post right transplant, dumping syndrome previously on TPN, chronic diarrhea, GERD, gastroparesis, DVT on Lovenox, history of ESBL, history of E. coli. Surgical history includes hysterectomy pancreatectomy, choledochojejunostomy, splenectomy, cholecystectomy , right pelvic renal transplant and splenectomy. Patient presented to the emergency room at [facility] on 05/17/2018 with complaint of right lower quadrant and left upper quadrant abdominal pain with accompanied fever chills and nausea and vomiting. Patient reported fever with a temperature of 102 prior to admission. Upon consultation, patient reports that she is concerned about possible obstruction. Patient endorses that she has not been able to eat solid food without regurgitation of solid food for the last 2-3 weeks. She reports abdominal pain and describes it as pressure that is worse after meals. Patient states that her discomfort is in her left upper quadrant and right lower quadrant. Patient endorses feeling reflux of solid food after meals with bloating. She reports throat discomfort with acid reflux. Patient states that she takes Dexilant to control reflux. States that she eats her last meal of the day each day at 4 PM but is still experiencing the symptoms. Patient reports last EGD done 1 month ago and she has an appointment to follow- up with Dr. Pollard on 06/01/2018 to obtain pathology results/ reports. Patient endorses that she has chronic diarrhea and usual bowel movements are light brown in color-on Creon-with no noted bleeding in small amounts of undigested food. Our service has been consulted to evaluate patient's report of abdominal pain with nausea and vomiting Abdominal pain with fever History of GERD and gastroparesis -Patient reporting abdominal pain with regurgitation of solid food for the last 2-3 weeks. Reporting left upper quadrant and right lower quadrant pressure type pain. Patient endorses symptoms despite taking Dexilant to control reflux. -05/17/2018 CT abdomen and pelvis reveal the followin. Extensive postsurgical changes which include a gastrojejunostomy, pancreatectomy, choledochojejunostomy, splenectomy, cholecystectomy and hysterectomy. 2. Right pelvic renal transplant. 3. No evidence of intra-abdominal abscess, free fluid or free air. 4. No evidence of suspicious mass or developing lymphadenopathy. -05/20/2018 hemoglobin 9.3 hematocrit 27.1 platelet count 501 total bilirubin 0.1 AST 11 ALT 14 alk phos 194. -04/05/2018 pathology surgical specimen report-Colon Biopsy-Sections reveal two fragments of colonic mucosa. One shows architectural distortion with irregular gland spacing, paneth cell metaplasia and a significant eosinophilia and neutrophilic infiltrate. These findings suggest an active chronic colitis and raise a differential diagnosis including inflammatory bowel disease and a chronic infectious colitis. No glandular dysplasia is noted. 04/05/2018 EGD findings: Class A esophagitis, approximately 400 cc of fluid retained in the stomach. Gastro jejunostomy identified. Small bowel mucosa normal. Food residue in the gastric body. Normal duodenal mucosa. Retroflex views revealed no abnormalities. Plan -Diabetic diet as tolerated -Monitor labs -Continue IV antibiotics -Antiemetic and analgesic as per attending -Colleen for gastroparesis -Pantoprazole 40 mg p.o. daily -Supportive care -Further recommendations to follow This patient has been seen by myself and Dr. Kapoor and this note is written on his behalf - Attending Attestation Dr. Kapoor <Yuliana Christine - Last Filed: 05/20/18 12:43> (1) Abdominal pain Status: Acute Code(s): R10.9 - Unspecified abdominal pain - Attending Attestation Plan as above, will check pathology results. SBFT to check patency of the bowel and role adhesions. Will follow up with you. Thank you for the consult. <Dominique Kapoor - Last Filed: 05/20/18 13:54>
--- NOTE | 2018-05-20 15:10 | P.PNNP ---
Subjective Interval history: Patient feels better although has abdominal issues and regurgitation present wants to go home Discussed with UTI ESBL E. coli sensitive to tetracycline and, states she never took minocycline And willing to try as compared to other antibiotics Physical Exam Vital signs: Vital Signs 05/19/18 16:00 05/19/18 20:00 05/19/18 23:16 Temperature 97.6 F 98.6 F Pulse Rate 66 78 Respiratory Rate 19 18 18 Blood Pressure 144/71 H 122/62 Pulse Oximetry 98 96 05/20/18 00:00 05/20/18 08:00 05/20/18 12:00 Temperature 97.8 F 98.4 F 98.4 F Pulse Rate 69 66 65 Respiratory Rate 17 17 18 Blood Pressure 136/74 124/77 119/82 Pulse Oximetry 95 97 96 Intake & Output 05/19/18 05/20/18 05/20/18 18:59 06:59 18:59 Intake Total 1200 / 1200 1000 / 1000 Balance 1200 / 1200 1000 / 1000 Weight 60.1 kg Intake: IV 1200 / 1200 1000 / 1000 NS Inj 1,000 ML @ 70 mls/hr IV. 1000 / 1000 1000 / 1000 CONT .[id number] [facility] Rx#:[id number] Cubicin Inj 320 MG In NS Inj 100 / 100 100 ML @ 200 mls/hr IV.SIG Q24H [facility] Rx#:[id number] Rocephin Inj 1,000 MG In NS Inj 100 / 100 100 ML @ 200 mls/hr IV.SIG Q24H [facility] Rx#:[id number] Other: # Voids 4 Date of Last Bowel Movement 05/19/18 # Bowel Movements 3 Narrative: Gen. appearance: 57 yo female, appears in nad. Respiratory: Lungs clear to auscultation bilaterally. No wheezes or rhonchi. Abdomen: Soft, diffusely tender to palpation, nondistended. No peritoneal signs. Musculoskeletal: No gross deformities. No edema. Skin: No obvious rashes or erythema. Neuro: Sensory and motor grossly intact. Cranial nerves II through XII grossly intact. Assessment and Plan - Assessment (1) Renal transplant recipient Code(s): Z94.0 - Kidney transplant status Status: Acute (2) Fever Code(s): R50.9 - Fever, unspecified Status: Acute Qualifiers: Fever type: unspecified Qualified Code(s): R50.9 - Fever, unspecified (3) Abdominal pain Code(s): R10.9 - Unspecified abdominal pain Status: Acute (4) Acute renal failure Code(s): N17.9 - Acute kidney failure, unspecified Status: Acute (5) Gastroparesis Code(s): K31.84 - Gastroparesis Status: Acute (6) Nausea Code(s): R11.0 - Nausea Status: Acute (7) History of intestinal surgery Code(s): Z98.890 - Other specified postprocedural states Status: Acute (8) DM (diabetes mellitus) Code(s): E11.9 - Type 2 diabetes mellitus without complications Status: Acute Qualifiers: Diabetes mellitus type: type 1 (9) Renal insufficiency Code(s): N28.9 - Disorder of kidney and ureter, unspecified Status: Acute - Plan I will resume her prednisone 10 mg p.o. daily and tacrolimus 4 mg twice daily, tacrolimus 10 GI consulted ongoing GI issues Patient has UTI and growing VRE and ESBL E. coli Adjust antibiotic appropriately I can use minocycline she states she has a remote history of hives with other oxytetracycline But never tried minocycline before He can be observed on removal antibiotics for today and give 1 month supply if tolerates can be followed as outpatient Tacrolimus levels are high he can hold evening dose Continue with tacrolimus and prednisone Outpatient follow-up Protonix
--- NOTE | 2018-05-20 16:22 | P.PN ---
Subjective Interval history: Bed does not appear in acute distress at this time. Some nausea no vomiting able to keep some food down. No fever or chills. Feels improved. Physical Exam Vital signs: Vital Signs 05/19/18 20:00 05/19/18 23:16 05/20/18 00:00 Temperature 98.6 F 97.8 F Pulse Rate 78 69 Respiratory Rate 18 18 17 Blood Pressure 122/62 136/74 Pulse Oximetry 96 95 05/20/18 08:00 05/20/18 12:00 Temperature 98.4 F 98.4 F Pulse Rate 66 65 Respiratory Rate 17 18 Blood Pressure 124/77 119/82 Pulse Oximetry 97 96 Intake & Output 05/19/18 05/20/18 05/20/18 18:59 06:59 18:59 Intake Total 1200 / 1200 1000 / 1000 Balance 1200 / 1200 1000 / 1000 Weight 60.1 kg Intake: IV 1200 / 1200 1000 / 1000 NS Inj 1,000 ML @ 70 mls/hr IV. 1000 / 1000 1000 / 1000 CONT .[id number] [facility] Rx#:[id number] Cubicin Inj 320 MG In NS Inj 100 / 100 100 ML @ 200 mls/hr IV.SIG Q24H [facility] Rx#:[id number] Rocephin Inj 1,000 MG In NS Inj 100 / 100 100 ML @ 200 mls/hr IV.SIG Q24H [facility] Rx#:[id number] Other: # Voids 4 Date of Last Bowel Movement 05/19/18 # Bowel Movements 3 Narrative: Gen. appearance: The patient is very pleasant 57 yo female, appears in nad. Respiratory: Lungs clear to auscultation bilaterally. No wheezes or rhonchi. Abdomen: Soft, diffusely tender to palpation, nondistended. No peritoneal signs. Musculoskeletal: No gross deformities. No edema. Skin: No obvious rashes or erythema. Neuro: Sensory and motor grossly intact. Cranial nerves II through XII grossly intact. Results - Labs CBC & Chem 7: 05/20/18 05:49 05/20/18 05:49 Laboratory Results - last 24 hr 05/19/18 05/19/18 05/20/18 17:43 23:15 04:10 WBC RBC Hgb Hct MCV MCH MCHC RDW Plt Count MPV Neut % (Auto) Lymph % (Auto) [place] % (Auto) Eos % (Auto) Baso % (Auto) Neut # (Auto) Lymph # (Auto) [place] # (Auto) Eos # (Auto) Baso # (Auto) WBC Differential Differential Comment Sodium Potassium Chloride Carbon Dioxide Anion Gap BUN Creatinine Estimated GFR POC Glucose 354 H 406 H 166 H Random Glucose Calcium Total Bilirubin AST ALT Alkaline Phosphatase Total Protein Albumin Tacrolimus 05/20/18 05/20/18 05/20/18 05:49 05:49 05:49 WBC 8.0 RBC 3.13 L Hgb 9.3 L Hct 27.1 L MCV 86.3 MCH 29.8 MCHC 34.6 RDW 17.4 H Plt Count 501 H MPV 9.3 Neut % (Auto) 74.1 H Lymph % (Auto) 8.6 L [place] % (Auto) 14.1 H Eos % (Auto) 2.3 Baso % (Auto) 0.9 Neut # (Auto) 5.9 Lymph # (Auto) 0.7 L [place] # (Auto) 1.1 H Eos # (Auto) 0.2 Baso # (Auto) 0.1 WBC Differential . Differential Comment Auto diff final Sodium 138 Potassium 4.7 Chloride 109 H Carbon Dioxide 20.6 L Anion Gap 8 BUN 21 H Creatinine 1.24 H Estimated GFR 45 L POC Glucose Random Glucose 157 H D Calcium 9.2 Total Bilirubin 0.1 L AST 11 L ALT 14 Alkaline Phosphatase 194 H Total Protein 6.3 L Albumin 2.6 L Tacrolimus 12.0 05/20/18 05/20/18 07:52 11:32 WBC RBC Hgb Hct MCV MCH MCHC RDW Plt Count MPV Neut % (Auto) Lymph % (Auto) [place] % (Auto) Eos % (Auto) Baso % (Auto) Neut # (Auto) Lymph # (Auto) [place] # (Auto) Eos # (Auto) Baso # (Auto) WBC Differential Differential Comment Sodium Potassium Chloride Carbon Dioxide Anion Gap BUN Creatinine Estimated GFR POC Glucose 192 H 267 H Random Glucose Calcium Total Bilirubin AST ALT Alkaline Phosphatase Total Protein Albumin Tacrolimus Microbiology 05/17/18 01:30 Clean Catch Urine Urine Culture - Final Escherichia coli ESBL positive Enterococcus faecium 05/17/18 01:15 Blood - Peripheral Aerobic Blood Culture - Preliminary No growth in 3 days 05/17/18 01:15 Blood - Peripheral Anaerobic Blood Culture - Preliminary No growth in 3 days 05/17/18 01:19 Blood - Peripheral Aerobic Blood Culture - Preliminary No growth in 3 days 05/17/18 01:19 Blood - Peripheral Anaerobic Blood Culture - Preliminary No growth in 3 days Assessment and Plan - Plan Fever/leukocytosis Patient with reported fever to 102 at home and with WBCs 15.3 on admission History of ESBL UTI status post Invanz 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 Received daptomycin and ceftriaxone. Change to PO minocycline based on ID and sensitivities Blood cultures pending Follow culture results, initiate antibiotics if indicated and consider infectious disease consult if fevers/leukocytosis persist Patient has UTI and growing VRE and ESBL E. coli Started minocycline PO as sensitive for both organisms. Needs for 1 month supply. To follow up as OP with nephrology and if need Dr Hughes will give referral to ID. Tacrolimus levels are high he can hold evening dose Continue with tacrolimus and prednisone per nephro. Tacrolimus level high today and is held per nephro Emesis/regurgitation, improving Patient reports emptying of her stomach contents x2 earlier today Seen by gastroenterology during previous hospitalization, started rifaximin, continue Reglan as patient with history of gastroparesis Last EGD/colonoscopy on 04/05/18 showed food residue in gastric body with normal duodenal mucosa. Colonoscopy revealed internal/external hemorrhoids Patient with follow-up gastroenterology at [facility] appointment on 06/01/18, continue home medications (once reconciled) and follow-up as outpatient Repeat gastroenterology consult if symptoms persist consider azithromycin Patient has refused TPN Consult her GI doctor Add Reglan 10 mg 3 times daily scheduled as per patient she is taking before meals. Diabetes mellitus Holding long-acting insulin as patient reports she is not tolerating p.o. 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 [place] PO antibiotics today to see if tolerates if tolerate she can be DC poss tomorrow. If not tolerated abx will consult ID for eval and recs of abx at DC. Patient needs to follow up at [facility] after DC Discussed with the patient, nurse, Dr Hughes nephrology
--- NOTE | 2018-05-20 17:04 | P.DS ---
Date of admission: 05/17/18 02:52 Primary care physician: Armani Batista Brief History from admission: 57-year-old female with a past medical history significant for diabetes mellitus , polycystic kidney disease status post transplant, dumping interim previously on TPN, chronic diarrhea, GERD, gastroparesis, history of DVT on Lovenox and history of ESBL urinary tract infection previously treated with Invanz presents to the emergency department for the evaluation of fevers/chills with accompanying emesis x2. The patient was discharged to home with Invanz times 2- week, completed 1 week ago at which time her Ward was removed. She reports a home temperature of 102 taken by mouth. Her fever resolved on its own without antipyretic medications by the time she arrived in the emergency department. She is status post renal transplant on 07/22/17 in [place]. The patient's primary concern at this time is her gastrointestinal issues. She reports significant emesis x2 earlier today and is concerned about possible obstruction. During her previous hospitalization (discharge on 04/27/18) the patient was evaluated by gastroenterology who started rifaximin. The patient denies any chest pain or shortness of breath. No dysuria or urinary retention. No lateralizing signs/symptoms. 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 Received daptomycin and ceftriaxone. Change to PO minocycline based on ID and sensitivities Blood cultures pending Follow culture results, initiate antibiotics if indicated and consider infectious disease consult if fevers/leukocytosis persist Patient has UTI and growing VRE and ESBL E. coli Started minocycline PO as sensitive for both organisms. Needs for 1 month supply. To follow up as OP with nephrology and if need Dr Hughes will give referral to ID. Tacrolimus levels are high he can hold evening dose Continue with tacrolimus and prednisone per nephro. Tacrolimus level high today and is held per nephro Emesis/regurgitation, improving Patient reports emptying of her stomach contents x2 earlier today Seen by gastroenterology during previous hospitalization, started rifaximin, continue Reglan as patient with history of gastroparesis Last EGD/colonoscopy on 04/05/18 showed food residue in gastric body with normal duodenal mucosa. Colonoscopy revealed internal/external hemorrhoids Patient with follow-up gastroenterology at [facility] appointment on 06/01/18, continue home medications (once reconciled) and follow-up as outpatient Repeat gastroenterology consult if symptoms persist consider azithromycin Patient has refused TPN Consult her GI doctor Add Reglan 10 mg 3 times daily scheduled as per patient she is taking before meals. Diabetes mellitus Holding long-acting insulin as patient reports she is not tolerating p.o. 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 [place] PO antibiotics today to see if tolerates if tolerate she can be DC poss tomorrow. If not tolerated abx will consult ID for eval and recs of abx at DC. Patient needs to follow up at [facility] after DC Discussed with the patient, nurse, Dr Hughes nephrology - Time Spent with Patient Total time spent providing and/or coordinating discharge services: Greater than 30 minutes - Quality: VTE Deep Vein Thrombosis/Pulmonary Embolism Present on Admission: No Exam Vital signs: Vital Signs 05/19/18 20:00 05/19/18 23:16 05/20/18 00:00 Temperature 98.6 F 97.8 F Pulse Rate 78 69 Respiratory Rate 18 18 17 Blood Pressure 122/62 136/74 Pulse Oximetry 96 95 05/20/18 08:00 05/20/18 12:00 05/20/18 16:00 Temperature 98.4 F 98.4 F 98.3 F Pulse Rate 66 65 65 Respiratory Rate 17 18 17 Blood Pressure 124/77 119/82 130/78 Pulse Oximetry 97 96 95 Intake & Output 05/19/18 05/20/18 05/20/18 18:59 06:59 18:59 Intake Total 1200 / 1200 1000 / 1000 Balance 1200 / 1200 1000 / 1000 Weight 60.1 kg Intake: IV 1200 / 1200 1000 / 1000 NS Inj 1,000 ML @ 70 mls/hr IV. 1000 / 1000 1000 / 1000 CONT .[id number] [facility]ON[facility]D Rx#:[id number] Cubicin Inj 320 MG In NS Inj 100 / 100 100 ML @ 200 mls/hr IV.SIG Q24H [facility]ON[facility]D Rx#:[id number] Rocephin Inj 1,000 MG In NS Inj 100 / 100 100 ML @ 200 mls/hr IV.SIG Q24H RONALD Rx#:[id number] Other: # Voids 4 Date of Last Bowel Movement 05/19/18 # Bowel Movements 3 Narrative: Gen. appearance: The patient is very pleasant 57 yo female, appears in nad. Respiratory: Lungs clear to auscultation bilaterally. No wheezes or rhonchi. Abdomen: Soft, diffusely tender to palpation, nondistended. No peritoneal signs. Musculoskeletal: No gross deformities. No edema. Skin: No obvious rashes or erythema. Neuro: Sensory and motor grossly intact. Cranial nerves II through XII grossly intact. Results Procedures completed during hospitalization: none Labs on day of discharge: Labs from last 24 hours 05/20/18 05/20/18 05/20/18 16:59 11:32 07:52 WBC RBC Hgb Hct MCV MCH MCHC RDW Plt Count MPV Neut % (Auto) Lymph % (Auto) [place] % (Auto) Eos % (Auto) Baso % (Auto) Neut # (Auto) Lymph # (Auto) [place] # (Auto) Eos # (Auto) Baso # (Auto) WBC Differential Differential Comment Sodium Potassium Chloride Carbon Dioxide Anion Gap BUN Creatinine Estimated GFR POC Glucose 382 H 267 H 192 H Random Glucose Calcium Total Bilirubin AST ALT Alkaline Phosphatase Total Protein Albumin Tacrolimus 05/20/18 05/20/18 05/20/18 05:49 05:49 05:49 WBC 8.0 RBC 3.13 L Hgb 9.3 L Hct 27.1 L MCV 86.3 MCH 29.8 MCHC 34.6 RDW 17.4 H Plt Count 501 H MPV 9.3 Neut % (Auto) 74.1 H Lymph % (Auto) 8.6 L [place] % (Auto) 14.1 H Eos % (Auto) 2.3 Baso % (Auto) 0.9 Neut # (Auto) 5.9 Lymph # (Auto) 0.7 L [place] # (Auto) 1.1 H Eos # (Auto) 0.2 Baso # (Auto) 0.1 WBC Differential . Differential Comment Auto diff final Sodium 138 Potassium 4.7 Chloride 109 H Carbon Dioxide 20.6 L Anion Gap 8 BUN 21 H Creatinine 1.24 H Estimated GFR 45 L POC Glucose Random Glucose 157 H D Calcium 9.2 Total Bilirubin 0.1 L AST 11 L ALT 14 Alkaline Phosphatase 194 H Total Protein 6.3 L Albumin 2.6 L Tacrolimus 12.0 05/20/18 05/19/18 05/19/18 04:10 23:15 17:43 WBC RBC Hgb Hct MCV MCH MCHC RDW Plt Count MPV Neut % (Auto) Lymph % (Auto) [place] % (Auto) Eos % (Auto) Baso % (Auto) Neut # (Auto) Lymph # (Auto) [place] # (Auto) Eos # (Auto) Baso # (Auto) WBC Differential Differential Comment Sodium Potassium Chloride Carbon Dioxide Anion Gap BUN Creatinine Estimated GFR POC Glucose 166 H 406 H 354 H Random Glucose Calcium Total Bilirubin AST ALT Alkaline Phosphatase Total Protein Albumin Tacrolimus Preliminary micro results at discharge 05/17/18 01:15 Aerobic Blood Culture - Preliminary Blood - Peripheral No growth in 3 days Anaerobic Blood Culture - Preliminary No growth in 3 days 05/17/18 01:19 Aerobic Blood Culture - Preliminary Blood - Peripheral No growth in 3 days Anaerobic Blood Culture - Preliminary No growth in 3 days - Impressions ITS Impressions Abdomen/Pelvis CT 05/17/18 00:00 CONCLUSION: 1. Extensive postsurgical changes which include a gastrojejunostomy, pancreatectomy, choledochojejunostomy, splenectomy, cholecystectomy and hysterectomy. 2. Right pelvic renal transplant. 3. No evidence of intra-abdominal abscess, free fluid or free air. 4. No evidence of suspicious mass or developing lymphadenopathy. Chest X-Ray 05/17/18 00:49 CONCLUSION: No acute cardiopulmonary disease identified. Discharge Plan - Discharge Disposition Patient Disposition: Discharge Home - Discharge Condition Condition: Stable - Discharge Order Discharge Orders: Discharge Order (Routine); Ordered 05/21/18 Ordered By: Dorina Singh - Discharge Details Anticipated Discharge Date: 05/21/18 - Physicians Team Attending Provider: Dorina Singh Other Providers: Miki Hughes MD ; Dominique Kapoor MD
[2018-05-20] MEDS: Enoxaparin Inj 100 MG/ML Syringe SQ SCH (18:01)
[2018-05-20] MEDS: Minocycline 100 MG Capsule PO SCH ×2 (18:37→20:49)
[2018-05-21] MEDS: Morphine Sulfate Inj 2 MG/ML Vial IV.PUSH PRN ×6 (00:50→21:25)
[2018-05-21] MEDS: Insulin NovoLOG Aspart Correctional Sugar Inj SQ SCH ×4 (04:42→17:00)
[2018-05-21] MEDS: Acetaminophen 325 MG Tablet PO PRN (04:43)
--- NOTE | 2018-05-21 06:12 | XR ---
EXAM DATE: 05/21/2018 6:07 AM EST AGE/SEX: 57 years / Female INDICATIONS: Fever. CLINICAL DATA: This is the patient's subsequent encounter. Patient reports that signs and symptoms h ave been present for 4 - 6 days and indicates a pain score of 6/10. MEDICAL/SURGICAL HISTORY: . Gastroparesis. Gastroesophageal reflux disease. Diabetes. Kidney fa ilure, dumping syndrome. . Hysterectomy. Splenectomy. Oophorectomy, pancreatectomy, kidney transpla nt. COMPARISON: [facility] [place]ST 1V SINGLE AP, 05/17/2018. . FINDINGS: A single AP view of the chest demonstrates the lungs to be symmetrically aerated without evidence of mass, infiltrate or effusion. The cardiomediastinal contours are unremarkable. Osseous structures a re intact. CONCLUSION: No active disease. Minimal linear scarring left lung base. Electronically signed by: Zaki Arora MD 05/21/2018 6:10 AM EST
[2018-05-21 07:43] LABS: Baso % (Auto) 0.3 % (0.0-2.0); Eos # (Auto) 0.1 th/mm3 (0.0-0.4); Eos % (Auto) 0.4 % (0.0-4.0); Lymph # (Auto) 0.3 th/mm3 (1.0-4.8); Lymph % (Auto) 2.1 % (9.0-44.0); Mean Corpuscular HGB Conc 32.1 % (32.0-36.0); Mean Corpuscular Hemoglobin 27.7 pg (27.0-34.0); Mean Corpuscular Volume 86.2 fL (80.0-100.0); Mean Platelet Volume 9.2 fL (7.0-11.0); Mono # (Auto) 1.2 th/mm3 (0.0-0.9); Mono % (Auto) 7.9 % (0.0-8.0); Neut % (Auto) 89.3 % (16.0-70.0); Platelet Count 568 th/mm3 (150-450); Red Blood Count 3.25 mil/mm3 (4.00-5.30); Red Cell Distribution Width 17.3 % (11.6-17.2); White Blood Count 15.7 th/mm3 (4.0-11.0)
[2018-05-21 08:09] LABS: Alanine Aminotransferase 18 U/L (10-53); Albumin 2.7 g/dL (3.4-5.0); Alkaline Phosphatase 229 U/L (45-117); Anion Gap 11 meq/L (5-15); Aspartate Aminotransferase 30 U/L (15-37); Blood Urea Nitrogen 22 mg/dL (7-18); Calcium 8.8 mg/dL (8.5-10.1); Carbon Dioxide 20.6 meq/L (21.0-32.0); Chloride 106 meq/L (98-107); Glomerular Filtration Rate 42 mL/min (>89); Glucose,Random 180 mg/dL (74-106); Potassium 4.3 meq/L (3.5-5.1); Sodium 138 meq/L (136-145); Total Protein 6.2 g/dL (6.4-8.2)
[2018-05-21] MEDS: Sod Chloride 0.9% Inj 1,000 ML IV.CONT SCH ×2 (08:41→22:25)
[2018-05-21] MEDS: Carvedilol 12.5 MG Tablet PO SCH ×2 (08:41→21:26)
[2018-05-21] MEDS: Lipase/Protease/Amylase 24/76/120 DR Capsule PO SCH ×3 (08:42→16:58)
[2018-05-21] MEDS: Minocycline 100 MG Capsule PO SCH ×2 (08:42→21:43)
[2018-05-21] MEDS: predniSONE 10 MG Tablet PO SCH (08:42)
[2018-05-21] MEDS: Metoclopramide 10 MG Tablet PO SCH ×3 (08:43→17:00)
[2018-05-21] MEDS: Sodium Chloride 0.9% 2 ML Flush BID IV.FLUSH SCH ×2 (08:46→21:44)
[2018-05-21] MEDS: Insulin Detemir Inj 1,000 UNIT/10 ML Vial SQ SCH ×2 (08:47→21:27)
--- NOTE | 2018-05-21 11:57 | P.PNNP ---
Subjective Interval history: Patient developed a fever of 101 this morning, blood cultures drawn, patient has VRE/ESBL E. coli UTI Physical Exam Vital signs: Vital Signs 05/20/18 12:00 05/20/18 16:00 05/20/18 20:00 Temperature 98.4 F 98.3 F 98.6 F Pulse Rate 65 65 66 Respiratory Rate 18 17 18 Blood Pressure 119/82 130/78 135/76 Pulse Oximetry 96 95 97 05/21/18 00:00 05/21/18 04:00 05/21/18 05:23 Temperature 98.3 F 101.0 F H Pulse Rate 73 99 H Respiratory Rate 18 18 17 Blood Pressure 150/75 H 133/68 Pulse Oximetry 95 94 L 05/21/18 08:00 Temperature 98.7 F Pulse Rate 80 Respiratory Rate 18 Blood Pressure 106/55 L Pulse Oximetry 93 L Intake & Output 05/20/18 05/21/18 05/21/18 18:59 06:59 18:59 Intake Total 2100 / 2100 1000 / 1000 Balance 2100 / 2100 1000 / 1000 Weight 60.6 kg Intake: IV 1000 / 1000 1000 / 1000 NS Inj 1,000 ML @ 70 mls/hr IV. 1000 / 1000 1000 / 1000 CONT .[id number] RONALD Rx#:[id number] Oral 1100 / 1100 Other: # Voids 3 3 Date of Last Bowel Movement 05/20/18 # Bowel Movements 1 Narrative: Gen. appearance: The patient is very pleasant 57 yo female, appears in nad. Respiratory: Lungs clear to auscultation bilaterally. No wheezes or rhonchi. Abdomen: Soft, diffusely tender to palpation, nondistended. No peritoneal signs. Musculoskeletal: No gross deformities. No edema. Skin: No obvious rashes or erythema. Neuro: Sensory and motor grossly intact. Cranial nerves II through XII grossly intact. Assessment and Plan - Assessment (1) Renal transplant recipient Code(s): Z94.0 - Kidney transplant status Status: Acute (2) Fever Code(s): R50.9 - Fever, unspecified Status: Acute Qualifiers: Fever type: unspecified Qualified Code(s): R50.9 - Fever, unspecified (3) Abdominal pain Code(s): R10.9 - Unspecified abdominal pain Status: Acute (4) Acute renal failure Code(s): N17.9 - Acute kidney failure, unspecified Status: Acute (5) Gastroparesis Code(s): K31.84 - Gastroparesis Status: Acute (6) Nausea Code(s): R11.0 - Nausea Status: Acute (7) History of intestinal surgery Code(s): Z98.890 - Other specified postprocedural states Status: Acute (8) DM (diabetes mellitus) Code(s): E11.9 - Type 2 diabetes mellitus without complications Status: Acute Qualifiers: Diabetes mellitus type: type 1 (9) Renal insufficiency Code(s): N28.9 - Disorder of kidney and ureter, unspecified Status: Acute - Plan I will resume her prednisone 10 mg p.o. daily and tacrolimus 4 mg twice daily, tacrolimus came down after holding yesterday evening dose and restarted at 4 mg twice a day today, she has fever now and is going to require infectious disease consult GI consulted ongoing GI issues Patient has UTI and growing VRE and ESBL E. coli Adjust antibiotic imipenem and Zyvox ID consult pending Tacrolimus levels 5.4 followed level Continue with tacrolimus and prednisone
--- NOTE | 2018-05-21 14:03 | FL ---
EXAM DATE: 05/21/2018 1:12 PM EST AGE/SEX: 57 years / Female INDICATIONS: Nausea, vomiting, and abdominal pain. CLINICAL DATA: This is the patient's initial encounter. Patient reports that signs and symptoms have been present for 2 weeks and indicates a pain score of 7/10. MEDICAL/SURGICAL HISTORY: . Gastroparesis. Gastroesophageal reflux disease. Diabetes. Kidney fa ilure. Dumping syndrome. Colonic inertia. Colon resection. IVC Filter placement. Cholecystectomy. Hysterectomy. Splenectomy. Oophorectomy. Pancreatectomy. Bilateral nephrectomy. Kidney transplant. COMPARISON: CT from 05/17/2018. FLUORO TIME: 0.0 IMAGE COUNT: 7 CONTRAST: Barium oral contrast FINDINGS: Preliminary film demonstrates a retrievable IVC filter. Multiple clips are seen in the abdomen partic ularly on the right side. Bowel adrianne are seen in the left mid abdomen. Pneumobilia is seen on the assistant manager bilingual image.. The study was performed portably. The stomach is grossly unremarkable. It appears somewhat displaced the left which is likely from prio r splenectomy. Examination of the small bowel demonstrates grossly normal-appearing small bowel. No significant area s of small bowel thickening or dilatation are seen. On the 3 hour image contrast is seen within the r ectum. It appears the patient is likely status post partial colectomy. Contrast within the rectum rul es out obstruction. Contrast was seen to reflux into the biliary system. Fluoroscopic images were no t obtained on this portably obtain study.. CONCLUSION: No obstruction is seen. Status post resection of much of the colon. Contrast is seen within the rectum. Pneumobilia. On later images contrast is seen to extend into the biliary system. Electronically signed by: Renny Peterson MD 05/21/2018 2:01 PM EST
--- NOTE | 2018-05-21 14:55 | P.PNGI ---
Subjective Interval history: Patient sitting up in bed Completed lunch meal and denies any nausea or vomiting <Yuliana Christine - Last Filed: 05/21/18 14:52> Physical Exam Vital signs: Vital Signs 05/20/18 16:00 05/20/18 20:00 05/21/18 00:00 Temperature 98.3 F 98.6 F 98.3 F Pulse Rate 65 66 73 Respiratory Rate 17 18 18 Blood Pressure 130/78 135/76 150/75 H Pulse Oximetry 95 97 95 05/21/18 04:00 05/21/18 05:23 05/21/18 08:00 Temperature 101.0 F H 98.7 F Pulse Rate 99 H 80 Respiratory Rate 18 17 18 Blood Pressure 133/68 106/55 L Pulse Oximetry 94 L 93 L 05/21/18 12:00 Temperature 97.7 F Pulse Rate 69 Respiratory Rate 18 Blood Pressure 105/59 L Pulse Oximetry 98 Intake & Output 05/20/18 05/21/18 05/21/18 18:59 06:59 18:59 Intake Total 2099 / 2100 1400 / 1400 Balance 2100 / 2100 1400 / 1400 Weight 60.6 kg Intake: IV 1000 / 1000 1400 / 1400 NS Inj 1,000 ML @ 70 mls/hr IV. 1000 / 1000 1000 / 1000 CONT .[id number] RON[facility] Rx#:[id number] Primaxin Inj 500 MG In NS Inj 100 / 100 100 ML @ 200 mls/hr IV.SIG Q6H RONALD Rx#:[id number] Zyvox 600 mg Premix 300 ML @ 300 / 300 300 mls/hr IV.SIG Q12H RONALD Rx#: [id number] Oral 1100 / 1100 Other: # Voids 3 3 Date of Last Bowel Movement 05/20/18 # Bowel Movements 1 - Constitutional no acute distress - Routine HEENT Exam Head: Present: normocephalic - Routine Respiratory Exam Present: CTA bilaterally. Absent: accessory muscle use - Routine Cardiovascular Exam Present: S1, S2 - Routine Abdominal Exam Present: soft, normoactive bowel sounds. Absent: tenderness, distended, guarding, firm - Routine Extremities Exam Absent: edema - Routine Skin Exam Present: dry, warm - Routine Neurological Exam Present: alert, oriented X3 <EmmettYuliana - Last Filed: 05/21/18 14:52> Vital signs: Vital Signs 05/21/18 16:00 05/21/18 20:00 05/22/18 00:00 Temperature 97.4 F L 97.9 F 98.2 F Pulse Rate 76 75 69 Respiratory Rate 18 18 17 Blood Pressure 123/58 L 116/59 L 146/66 H Pulse Oximetry 96 96 95 05/22/18 08:00 Temperature 97.8 F Pulse Rate 65 Respiratory Rate 19 Blood Pressure 155/77 H Pulse Oximetry 98 Intake & Output 05/21/18 05/22/18 05/22/18 18:59 06:59 18:59 Intake Total 1500 / 1500 1979 100 / 100 Balance 1500 / 1500 1979 100 / 100 Weight 60 kg Intake: IV 1500 / 1500 1500 / 1500 100 / 100 NS Inj 1,000 ML @ 70 mls/hr IV. 1000 / 1000 1000 / 1000 CONT .[id number] RONALD Rx#:[id number] Primaxin Inj 500 MG In NS Inj 200 / 200 200 / 200 100 / 100 100 ML @ 200 mls/hr IV.SIG Q8H RONALD Rx#:[id number] Zyvox 600 mg Premix 300 ML @ 300 / 300 300 / 300 300 mls/hr IV.SIG Q12H RONALD Rx#: [id number] Oral 480 / 480 Other: # Voids 2 Date of Last Bowel Movement 05/20/18 # Bowel Movements 1 <Dominique Kapoor A - Last Filed: 05/22/18 13:00> Results - Labs CBC & Chem 7: 05/21/18 05:31 05/21/18 05:31 Laboratory Results - last 24 hr 05/20/18 05/20/18 05/21/18 16:59 20:40 05:31 WBC RBC Hgb Hct MCV MCH MCHC RDW Plt Count MPV Neut % (Auto) Lymph % (Auto) [place] % (Auto) Eos % (Auto) Baso % (Auto) Neut # (Auto) Lymph # (Auto) [place] # (Auto) Eos # (Auto) Baso # (Auto) WBC Differential Differential Comment Sodium Potassium Chloride Carbon Dioxide Anion Gap BUN Creatinine Estimated GFR POC Glucose 382 H 350 H Random Glucose Calcium Total Bilirubin AST ALT Alkaline Phosphatase Total Protein Albumin Tacrolimus 5.4 05/21/18 05/21/18 05/21/18 05:31 05:31 07:38 WBC 15.7 H D RBC 3.25 L Hgb 9.0 L Hct 28.0 L MCV 86.2 MCH 27.7 MCHC 32.1 RDW 17.3 H Plt Count 568 H MPV 9.2 Neut % (Auto) 89.3 H Lymph % (Auto) 2.1 L [place] % (Auto) 7.9 Eos % (Auto) 0.4 Baso % (Auto) 0.3 Neut # (Auto) 14.0 H Lymph # (Auto) 0.3 L [place] # (Auto) 1.2 H Eos # (Auto) 0.1 Baso # (Auto) 0.0 WBC Differential . Differential Comment Auto diff final Sodium 138 Potassium 4.3 Chloride 106 Carbon Dioxide 20.6 L Anion Gap 11 BUN 22 H Creatinine 1.31 H Estimated GFR 42 L POC Glucose 228 H Random Glucose 180 H Calcium 8.8 Total Bilirubin 0.1 L AST 30 ALT 18 Alkaline Phosphatase 229 H Total Protein 6.2 L Albumin 2.7 L Tacrolimus 05/21/18 11:27 WBC RBC Hgb Hct MCV MCH MCHC RDW Plt Count MPV Neut % (Auto) Lymph % (Auto) [place] % (Auto) Eos % (Auto) Baso % (Auto) Neut # (Auto) Lymph # (Auto) [place] # (Auto) Eos # (Auto) Baso # (Auto) WBC Differential Differential Comment Sodium Potassium Chloride Carbon Dioxide Anion Gap BUN Creatinine Estimated GFR POC Glucose 174 H Random Glucose Calcium Total Bilirubin AST ALT Alkaline Phosphatase Total Protein Albumin Tacrolimus Microbiology 05/17/18 01:15 Blood - Peripheral Aerobic Blood Culture - Preliminary No growth in 4 days 05/17/18 01:15 Blood - Peripheral Anaerobic Blood Culture - Preliminary No growth in 4 days 05/17/18 01:19 Blood - Peripheral Aerobic Blood Culture - Preliminary No growth in 4 days 05/17/18 01:19 Blood - Peripheral Anaerobic Blood Culture - Preliminary No growth in 4 days 05/17/18 01:30 Clean Catch Urine Urine Culture - Final Escherichia coli ESBL positive Enterococcus faecium - Imaging Impressions Chest X-Ray 05/21/18 00:00 CONCLUSION: No active disease. Minimal linear scarring left lung base. Upper GI and Small Bowel X-Ray 05/21/18 00:00 CONCLUSION: No obstruction is seen. Status post resection of much of the colon. Contrast is seen within the rectum. Pneumobilia. On later images contrast is seen to extend into the biliary system. - Procedures none <Yuliana Christine - Last Filed: 05/21/18 14:52> - Labs CBC & Chem 7: 05/22/18 06:10 05/22/18 06:10 Laboratory Results - last 24 hr 05/21/18 05/21/18 05/21/18 16:49 21:21 21:22 WBC RBC Hgb Hct MCV MCH MCHC RDW Plt Count MPV Neut % (Auto) Lymph % (Auto) [place] % (Auto) Eos % (Auto) Baso % (Auto) Neut # (Auto) Lymph # (Auto) [place] # (Auto) Eos # (Auto) Baso # (Auto) WBC Differential Differential Comment Sodium Potassium Chloride Carbon Dioxide Anion Gap BUN Creatinine Estimated GFR POC Glucose 470 H* 539 H* 532 H* Random Glucose Calcium Phosphorus Magnesium Total Bilirubin AST ALT Alkaline Phosphatase Total Protein Albumin 05/22/18 05/22/18 05/22/18 02:16 06:10 06:10 WBC 8.6 RBC 3.09 L Hgb 8.9 L Hct 26.8 L MCV 86.6 MCH 28.8 MCHC 33.2 RDW 17.6 H Plt Count 572 H MPV 9.4 Neut % (Auto) 72.5 H Lymph % (Auto) 8.6 L [place] % (Auto) 15.5 H Eos % (Auto) 2.8 Baso % (Auto) 0.6 Neut # (Auto) 6.3 Lymph # (Auto) 0.7 L [place] # (Auto) 1.3 H Eos # (Auto) 0.2 Baso # (Auto) 0.1 WBC Differential . Differential Comment Auto diff final Sodium 136 Potassium 4.5 Chloride 107 Carbon Dioxide 20.6 L Anion Gap 8 BUN 21 H Creatinine 1.28 H Estimated GFR 43 L POC Glucose 334 H Random Glucose 189 H Calcium 8.6 Phosphorus 2.8 Magnesium 1.3 L Total Bilirubin 0.1 L AST 15 ALT 16 Alkaline Phosphatase 207 H Total Protein 5.7 L Albumin 2.3 L 05/22/18 05/22/18 07:45 11:53 WBC RBC Hgb Hct MCV MCH MCHC RDW Plt Count MPV Neut % (Auto) Lymph % (Auto) [place] % (Auto) Eos % (Auto) Baso % (Auto) Neut # (Auto) Lymph # (Auto) [place] # (Auto) Eos # (Auto) Baso # (Auto) WBC Differential Differential Comment Sodium Potassium Chloride Carbon Dioxide Anion Gap BUN Creatinine Estimated GFR POC Glucose 198 H 126 H Random Glucose Calcium Phosphorus Magnesium Total Bilirubin AST ALT Alkaline Phosphatase Total Protein Albumin Microbiology 05/21/18 06:11 Blood - Peripheral Aerobic Blood Culture - Preliminary No growth in 1 day 05/21/18 06:11 Blood - Peripheral Anaerobic Blood Culture - Preliminary No growth in 1 day 05/21/18 06:05 Blood - Peripheral Aerobic Blood Culture - Preliminary No growth in 1 day 05/21/18 06:05 Blood - Peripheral Anaerobic Blood Culture - Preliminary No growth in 1 day 05/17/18 01:15 Blood - Peripheral Aerobic Blood Culture - Final No growth in 5 days 05/17/18 01:15 Blood - Peripheral Anaerobic Blood Culture - Final No growth in 5 days 05/17/18 01:19 Blood - Peripheral Aerobic Blood Culture - Final No growth in 5 days 05/17/18 01:19 Blood - Peripheral Anaerobic Blood Culture - Final No growth in 5 days - Imaging Impressions Upper GI and Small Bowel X-Ray 05/21/18 00:00 CONCLUSION: No obstruction is seen. Status post resection of much of the colon. Contrast is seen within the rectum. Pneumobilia. On later images contrast is seen to extend into the biliary system. <Dominique Kapoor - Last Filed: 05/22/18 13:00> Assessment and Plan (1) Abdominal pain Status: Acute Code(s): R10.9 - Unspecified abdominal pain - Plan This patient is a 57-year-old female with a past medical history significant for diabetes, polycystic kidney disease status post right transplant, dumping syndrome previously on TPN, chronic diarrhea, GERD, gastroparesis, DVT on Lovenox, history of ESBL, history of E. coli. Surgical history includes hysterectomy pancreatectomy, choledochojejunostomy, splenectomy, cholecystectomy , right pelvic renal transplant and splenectomy. Patient presented to the emergency room at [facility] on 05/17/2018 with complaint of right lower quadrant and left upper quadrant abdominal pain with accompanied fever chills and nausea and vomiting. Patient reported fever with a temperature of 102 prior to admission. Upon consultation, patient reports that she is concerned about possible obstruction. Patient endorses that she has not been able to eat solid food without regurgitation of solid food for the last 2-3 weeks. She reports abdominal pain and describes it as pressure that is worse after meals. Patient states that her discomfort is in her left upper quadrant and right lower quadrant. Patient endorses feeling reflux of solid food after meals with bloating. She reports throat discomfort with acid reflux. Patient states that she takes Dexilant to control reflux. States that she eats her last meal of the day each day at 4 PM but is still experiencing the symptoms. Patient reports last EGD done 1 month ago and she has an appointment to follow- up with Dr. Pollard on 06/01/2018 to obtain pathology results/ reports. Patient endorses that she has chronic diarrhea and usual bowel movements are light brown in color-on Creon-with no noted bleeding in small amounts of undigested food. Our service has been consulted to evaluate patient's report of abdominal pain with nausea and vomiting Abdominal pain with fever History of GERD and gastroparesis -Patient reporting abdominal pain with regurgitation of solid food for the last 2-3 weeks. Reporting left upper quadrant and right lower quadrant pressure type pain. Patient endorses symptoms despite taking Dexilant to control reflux. -05/17/2018 CT abdomen and pelvis reveal the followin. Extensive postsurgical changes which include a gastrojejunostomy, pancreatectomy, choledochojejunostomy, splenectomy, cholecystectomy and hysterectomy. 2. Right pelvic renal transplant. 3. No evidence of intra-abdominal abscess, free fluid or free air. 4. No evidence of suspicious mass or developing lymphadenopathy. -05/20/2018 hemoglobin 9.3 hematocrit 27.1 platelet count 501 total bilirubin 0.1 AST 11 ALT 14 alk phos 194. -04/05/2018 pathology surgical specimen report-Colon Biopsy-Sections reveal two fragments of colonic mucosa. One shows architectural distortion with irregular gland spacing, paneth cell metaplasia and a significant eosinophilia and neutrophilic infiltrate. These findings suggest an active chronic colitis and raise a differential diagnosis including inflammatory bowel disease and a chronic infectious colitis. No glandular dysplasia is noted. 04/05/2018 EGD findings: Class A esophagitis, approximately 400 cc of fluid retained in the stomach. Gastro jejunostomy identified. Small bowel mucosa normal. Food residue in the gastric body. Normal duodenal mucosa. Retroflex views revealed no abnormalities. 05/21/2018 Patient sitting up in bed. No reported abdominal tenderness. States tolerating diet well and denies nausea or vomiting. Afebrile and 97.7 F 05/21/2018 upper GI and small bowel series:No obstruction is seen. Status post resection of much of the colon. Contrast is seen within the rectum. Pneumobilia. On later images contrast is seen to extend into the biliary system. Plan -Diabetic diet -Continue to monitor labs -Continue IV antibiotics -Antiemetic and analgesic as per attending -Reglan for gastroparesis -Pantoprazole 40 mg p.o. daily -Supportive care -Further recommendations to follow This patient has been seen by myself and Dr. Kapoor and this note is written on his behalf - Attending Attestation Dr. Kapoor <Yuliana Christine - Last Filed: 05/21/18 14:52> (1) Abdominal pain Status: Acute Code(s): R10.9 - Unspecified abdominal pain - Attending Attestation Plan as above, SBFT pending. Further recommendations to follow. <Dominique Kapoor - Last Filed: 05/22/18 13:00>
--- NOTE | 2018-05-21 15:12 | P.PN ---
Subjective Interval history: The patient is in bed she appears chronically ill. Since she had diarrhea. Still with some abdominal pain. She also had fevers 10 1 in the morning today. And no chest pain or shortness of breath she is saturating well on room air. No cough. Says she has more urinary complaints says she has pain with urination. Physical Exam Vital signs: Vital Signs 05/20/18 16:00 05/20/18 20:00 05/21/18 00:00 Temperature 98.3 F 98.6 F 98.3 F Pulse Rate 65 66 73 Respiratory Rate 17 18 18 Blood Pressure 130/78 135/76 150/75 H Pulse Oximetry 95 97 95 05/21/18 04:00 05/21/18 05:23 05/21/18 08:00 Temperature 101.0 F H 98.7 F Pulse Rate 99 H 80 Respiratory Rate 18 17 18 Blood Pressure 133/68 106/55 L Pulse Oximetry 94 L 93 L 05/21/18 12:00 Temperature 97.7 F Pulse Rate 69 Respiratory Rate 18 Blood Pressure 105/59 L Pulse Oximetry 98 Intake & Output 05/20/18 05/21/18 05/21/18 18:59 06:59 18:59 Intake Total 2100 / 2100 1400 / 1400 Balance 2100 / 2100 1400 / 1400 Weight 60.6 kg Intake: IV 1000 / 1000 1400 / 1400 NS Inj 1,000 ML @ 70 mls/hr IV. 1000 / 1000 1000 / 1000 CONT .[id number] RONALD Rx#:[id number] Primaxin Inj 500 MG In NS Inj 100 / 100 100 ML @ 200 mls/hr IV.SIG Q6H RONALD Rx#:[id number] Zyvox 600 mg Premix 300 ML @ 300 / 300 300 mls/hr IV.SIG Q12H RONALD Rx#: [id number] Oral 1100 / 1100 Other: # Voids 3 3 Date of Last Bowel Movement 05/20/18 # Bowel Movements 1 Narrative: Gen. appearance: The patient is very pleasant 57 yo female, appears in nad. Respiratory: Lungs clear to auscultation bilaterally. No wheezes or rhonchi. Abdomen: Soft, diffusely tender to palpation, nondistended. No peritoneal signs. Musculoskeletal: No gross deformities. No edema. Skin: No obvious rashes or erythema. Neuro: Sensory and motor grossly intact. Cranial nerves II through XII grossly intact. Results - Labs CBC & Chem 7: 05/21/18 05:31 05/21/18 05:31 Laboratory Results - last 24 hr 05/20/18 05/20/18 05/21/18 16:59 20:40 05:31 WBC RBC Hgb Hct MCV MCH MCHC RDW Plt Count MPV Neut % (Auto) Lymph % (Auto) [place] % (Auto) Eos % (Auto) Baso % (Auto) Neut # (Auto) Lymph # (Auto) [place] # (Auto) Eos # (Auto) Baso # (Auto) WBC Differential Differential Comment Sodium Potassium Chloride Carbon Dioxide Anion Gap BUN Creatinine Estimated GFR POC Glucose 382 H 350 H Random Glucose Calcium Total Bilirubin AST ALT Alkaline Phosphatase Total Protein Albumin Tacrolimus 5.4 05/21/18 05/21/18 05/21/18 05:31 05:31 07:38 WBC 15.7 H D RBC 3.25 L Hgb 9.0 L Hct 28.0 L MCV 86.2 MCH 27.7 MCHC 32.1 RDW 17.3 H Plt Count 568 H MPV 9.2 Neut % (Auto) 89.3 H Lymph % (Auto) 2.1 L [place] % (Auto) 7.9 Eos % (Auto) 0.4 Baso % (Auto) 0.3 Neut # (Auto) 14.0 H Lymph # (Auto) 0.3 L [place] # (Auto) 1.2 H Eos # (Auto) 0.1 Baso # (Auto) 0.0 WBC Differential . Differential Comment Auto diff final Sodium 138 Potassium 4.3 Chloride 106 Carbon Dioxide 20.6 L Anion Gap 11 BUN 22 H Creatinine 1.31 H Estimated GFR 42 L POC Glucose 228 H Random Glucose 180 H Calcium 8.8 Total Bilirubin 0.1 L AST 30 ALT 18 Alkaline Phosphatase 229 H Total Protein 6.2 L Albumin 2.7 L Tacrolimus 05/21/18 11:27 WBC RBC Hgb Hct MCV MCH MCHC RDW Plt Count MPV Neut % (Auto) Lymph % (Auto) [place] % (Auto) Eos % (Auto) Baso % (Auto) Neut # (Auto) Lymph # (Auto) [place] # (Auto) Eos # (Auto) Baso # (Auto) WBC Differential Differential Comment Sodium Potassium Chloride Carbon Dioxide Anion Gap BUN Creatinine Estimated GFR POC Glucose 174 H Random Glucose Calcium Total Bilirubin AST ALT Alkaline Phosphatase Total Protein Albumin Tacrolimus Microbiology 05/17/18 01:15 Blood - Peripheral Aerobic Blood Culture - Preliminary No growth in 4 days 05/17/18 01:15 Blood - Peripheral Anaerobic Blood Culture - Preliminary No growth in 4 days 05/17/18 01:19 Blood - Peripheral Aerobic Blood Culture - Preliminary No growth in 4 days 05/17/18 01:19 Blood - Peripheral Anaerobic Blood Culture - Preliminary No growth in 4 days 05/17/18 01:30 Clean Catch Urine Urine Culture - Final Escherichia coli ESBL positive Enterococcus faecium - Imaging Impressions Chest X-Ray 05/21/18 00:00 CONCLUSION: No active disease. Minimal linear scarring left lung base. Upper GI and Small Bowel X-Ray 05/21/18 00:00 CONCLUSION: No obstruction is seen. Status post resection of much of the colon. Contrast is seen within the rectum. Pneumobilia. On later images contrast is seen to extend into the biliary system. - Procedures none Assessment and Plan - Plan Fever/leukocytosis Patient with reported fever to 102 at home and with WBCs 15.3 on admission History of ESBL UTI status post Invanz DC'd 1 week [employer] Chest x-ray negative for acute process Urine culture with group D enterococcus and gram neg rafia - E coli ESBL. Received daptomycin and ceftriaxone. Change to PO minocycline based on ID and sensitivities Blood cultures pending Follow culture results, initiate antibiotics if indicated and consider infectious disease consult if fevers/leukocytosis persist Patient has UTI and growing VRE and ESBL E. coli Started minocycline PO however patient noted with fevers 101 on 05/21/18. Blood cultures resent . Starten back on IV abx Imipenem and Zyvox and ID consulted. Continue with tacrolimus and prednisone per nephro. Emesis/regurgitation, improving Patient reports emptying of her stomach contents x2 earlier today Seen by gastroenterology during previous hospitalization, started rifaximin, continue Reglan as patient with history of gastroparesis Last EGD/colonoscopy on 04/05/18 showed food residue in gastric body with normal duodenal mucosa. Colonoscopy revealed internal/external hemorrhoids Patient with follow-up gastroenterology at [facility] appointment on 06/01/18, continue home medications (once reconciled) and follow-up as outpatient Repeat gastroenterology consult if symptoms persist consider azithromycin Patient has refused TPN Consult her GI doctor Continue Reglan 10 mg 3 times daily scheduled as per patient she is taking before meals. Diabetes mellitus Holding long-acting insulin as patient reports she is not tolerating p.o. 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 [place] PO antibiotics today to see if tolerates if tolerate she can be DC poss tomorrow. If not tolerated abx will consult ID for eval and recs of abx at DC. Patient needs to follow up at [facility] after DC Discussed with the patient, nurse, Dr Hughes nephrology, Dr Ahn ID
--- NOTE | 2018-05-21 15:28 | MB ---
cc: Manas Ahn MD DATE: 05/21/2018 REQUESTING PHYSICIAN: Miki Hughes MD REASON FOR VISIT: VRE/ESBL Escherichia coli urinary tract infection. HISTORY OF PRESENT ILLNESS: This is a 57-year-old white female who is status post renal transplantation. The patient has had recurrent urinary tract infection. She was recently treated for UTI with ertapenem for resistant bacteria. She received 2 weeks of antibiotics and she was readmitted again because of fever. The course of antibiotic with ertapenem completed on 05/12/2018. The patient was evaluated and cultures of the urine were sent. The urine culture came back with extended-spectrum beta-lactamase Escherichia coli, which is resistant to ertapenem and also VRE. Prior to the ertapenem she was on meropenem. The VRE is sensitive to Zyvox. The ESBL Escherichia coli is sensitive to imipenem. The patient is currently awake and alert. She states that she still gets occasional chills. She states that she does not feel good. T-max was 101 degrees earlier today. Prior T-max was 100.2 on 05/17/2018. Blood cultures taken on admission have no growth. PAST MEDICAL HISTORY: Diabetes mellitus, gastroesophageal reflux disease, gastroparesis dumping syndrome, chronic kidney disease, liver disease, recurrent urinary tract infection, history of femur fracture, history of splenectomy, history of colectomy, history of oophorectomy, history of pancreatectomy, renal transplant 6 months ago. ALLERGIES: METRONIDAZOLE, OXYCODONE, OXYTETRACYCLINE, FENTANYL, FILGRASTIM. MEDICATIONS: 1. Creon. 2. Coreg. 3. Lovenox. 4. Vitamin D2. 5. Imipenem. 6. Zyvox. 7. Levemir. 8. Claritin. 9. Reglan. 10. Minocycline. 11. Zofran. 12. Protonix. 13. Deltasone. 14. Prograf. SOCIAL HISTORY: No tobacco. No illicit drugs. No alcohol. FAMILY HISTORY: Noncontributory. REVIEW OF SYSTEMS: All systems have been reviewed and are negative except for that mentioned in the history of present illness. In addition, the patient notes mild pain over the renal transplantation site of the right lower abdomen. PHYSICAL EXAMINATION: GENERAL: This is a well-developed female who is in no acute distress. VITAL SIGNS: Temperature 97.7, BP 105/59, respirations 18, heart rate 69. HEENT: The head is atraumatic. Extraocular movements grossly intact. Pupils reactive to light. No icterus. Oropharynx moist mucosa without lesions. NECK: Supple without adenopathy. LUNGS: Clear breath sounds. HEART: Regular S1, S2, without murmurs. ABDOMEN: Bowel sounds present. Soft, nontender. Right lower abdomen site of renal transplantation appears intact and there is no erythema. RECTAL: Not performed. EXTREMITIES: No clubbing, cyanosis, or edema. SKIN: No rash. NEUROLOGIC: No gross focal findings. PSYCHIATRIC: Calm and cooperative. LABORATORY DATA: WBC 15.7, platelets 568, 89% neutrophils, hemoglobin 9.0. Creatinine 1.3, BUN 22, sodium 138. Liver function tests normal. Alkaline phosphatase 229. IMPRESSION: 1. Recurrent urinary tract infection. Patient with Escherichia coli, ESBL, which is now resistant to ertapenem. Previous treatment with ertapenem. The patient also has Enterococcus CCM in addition to the ESBL E. coli. 2. Renal transplant status. 3. Fever and chills. 4. Leukocytosis. RECOMMENDATIONS: 1. Continue the imipenem for the beta-lactamase Escherichia coli. 2. Continue Zyvox for VRE. 3. Monitor temperature and white count. 4. Monitor blood culture. 5. Follow follow repeat culture on 05/23/2018. Thank you for this consultation. The patient's progress will be followed and further recommendations will be given upon followup. MD MANOJ Corey/ , 01:06 PM , 01:17 PM
[2018-05-21] MEDS: Enoxaparin Inj 100 MG/ML Syringe SQ SCH (16:59)
[2018-05-22] MEDS: Morphine Sulfate Inj 2 MG/ML Vial IV.PUSH PRN ×4 (02:17→17:09)
[2018-05-22 07:12] LABS: Baso # (Auto) 0.1 th/mm3 (0.0-0.2); Baso % (Auto) 0.6 % (0.0-2.0); Eos # (Auto) 0.2 th/mm3 (0.0-0.4); Eos % (Auto) 2.8 % (0.0-4.0); Hematocrit 26.8 % (35.0-46.0); Hemoglobin 8.9 gm/dL (11.6-15.3); Lymph # (Auto) 0.7 th/mm3 (1.0-4.8); Lymph % (Auto) 8.6 % (9.0-44.0); Mean Corpuscular HGB Conc 33.2 % (32.0-36.0); Mean Corpuscular Hemoglobin 28.8 pg (27.0-34.0); Mean Corpuscular Volume 86.6 fL (80.0-100.0); Mean Platelet Volume 9.4 fL (7.0-11.0); Mono # (Auto) 1.3 th/mm3 (0.0-0.9); Mono % (Auto) 15.5 % (0.0-8.0); Neut # (Auto) 6.3 th/mm3 (1.8-7.7); Neut % (Auto) 72.5 % (16.0-70.0); Platelet Count 572 th/mm3 (150-450); Red Blood Count 3.09 mil/mm3 (4.00-5.30); Red Cell Distribution Width 17.6 % (11.6-17.2); White Blood Count 8.6 th/mm3 (4.0-11.0)
[2018-05-22 07:40] LABS: Alanine Aminotransferase 16 U/L (10-53); Albumin 2.3 g/dL (3.4-5.0); Anion Gap 8 meq/L (5-15); Aspartate Aminotransferase 15 U/L (15-37); Blood Urea Nitrogen 21 mg/dL (7-18); Calcium 8.6 mg/dL (8.5-10.1); Carbon Dioxide 20.6 meq/L (21.0-32.0); Chloride 107 meq/L (98-107); Glomerular Filtration Rate 43 mL/min (>89); Glucose,Random 189 mg/dL (74-106); Magnesium 1.3 mg/dL (1.5-2.5); Phosphorus 2.8 mg/dL (2.5-4.9); Potassium 4.5 meq/L (3.5-5.1); Sodium 136 meq/L (136-145)
[2018-05-22 07:42] LABS: Alkaline Phosphatase 207 U/L (45-117); Total Protein 5.7 g/dL (6.4-8.2)
[2018-05-22] MEDS: Metoclopramide 10 MG Tablet PO SCH ×3 (08:18→18:04)
[2018-05-22] MEDS: Lipase/Protease/Amylase 24/76/120 DR Capsule PO SCH ×3 (08:18→18:04)
[2018-05-22] MEDS: predniSONE 10 MG Tablet PO SCH (08:18)
[2018-05-22] MEDS: Carvedilol 12.5 MG Tablet PO SCH ×2 (08:18→21:29)
[2018-05-22] MEDS: Insulin NovoLOG Aspart Correctional Sugar Inj SQ SCH ×5 (08:19→22:16)
[2018-05-22] MEDS: Insulin Detemir Inj 1,000 UNIT/10 ML Vial SQ SCH ×2 (08:19→21:29)
[2018-05-22] MEDS: Sodium Chloride 0.9% 2 ML Flush BID IV.FLUSH SCH ×2 (08:20→21:32)
[2018-05-22] MEDS: Minocycline 100 MG Capsule PO SCH (10:24)
--- NOTE | 2018-05-22 13:10 | P.PN ---
Subjective Interval history: Patient in bed she appears in not acute distress at this time. Denies nausea or vomiting. Still with diarrhea. No fevers overnight. Not eating much. Physical Exam Vital signs: Vital Signs 05/21/18 16:00 05/21/18 20:00 05/22/18 00:00 Temperature 97.4 F L 97.9 F 98.2 F Pulse Rate 76 75 69 Respiratory Rate 18 18 17 Blood Pressure 123/58 L 116/59 L 146/66 H Pulse Oximetry 96 96 95 05/22/18 08:00 05/22/18 12:00 Temperature 97.8 F 98.0 F Pulse Rate 65 67 Respiratory Rate 19 18 Blood Pressure 155/77 H 140/84 Pulse Oximetry 98 97 Intake & Output 05/21/18 05/22/18 05/22/18 18:59 06:59 18:59 Intake Total 1500 / 1500 1979 100 / 100 Balance 1500 / 1500 1979 100 / 100 Weight 60 kg Intake: IV 1500 / 1500 1500 / 1500 100 / 100 NS Inj 1,000 ML @ 70 mls/hr IV. 1000 / 1000 1000 / 1000 CONT .[id number] RNOALD Rx#:[id number] Primaxin Inj 500 MG In NS Inj 200 / 200 200 / 200 100 / 100 100 ML @ 200 mls/hr IV.SIG Q8H RONALD Rx#:[id number] Zyvox 600 mg Premix 300 ML @ 300 / 300 300 / 300 300 mls/hr IV.SIG Q12H RONALD Rx#: [id number] Oral 480 / 480 Other: # Voids 2 Date of Last Bowel Movement 05/20/18 # Bowel Movements 1 Narrative: Gen. appearance: The patient is very pleasant 57 yo female, appears in nad. Respiratory: Lungs clear to auscultation bilaterally. No wheezes or rhonchi. Abdomen: Soft, diffusely tender to palpation, nondistended. No peritoneal signs. Musculoskeletal: No gross deformities. No edema. Skin: No obvious rashes or erythema. Neuro: Sensory and motor grossly intact. Cranial nerves II through XII grossly intact. Results - Labs CBC & Chem 7: 05/22/18 06:10 05/22/18 06:10 Laboratory Results - last 24 hr 05/21/18 05/21/18 05/21/18 16:49 21:21 21:22 WBC RBC Hgb Hct MCV MCH MCHC RDW Plt Count MPV Neut % (Auto) Lymph % (Auto) Wood % (Auto) Eos % (Auto) Baso % (Auto) Neut # (Auto) Lymph # (Auto) Wood # (Auto) Eos # (Auto) Baso # (Auto) WBC Differential Differential Comment Sodium Potassium Chloride Carbon Dioxide Anion Gap BUN Creatinine Estimated GFR POC Glucose 470 H* 539 H* 532 H* Random Glucose Calcium Phosphorus Magnesium Total Bilirubin AST ALT Alkaline Phosphatase Total Protein Albumin 05/22/18 05/22/18 05/22/18 02:16 06:10 06:10 WBC 8.6 RBC 3.09 L Hgb 8.9 L Hct 26.8 L MCV 86.6 MCH 28.8 MCHC 33.2 RDW 17.6 H Plt Count 572 H MPV 9.4 Neut % (Auto) 72.5 H Lymph % (Auto) 8.6 L Wood % (Auto) 15.5 H Eos % (Auto) 2.8 Baso % (Auto) 0.6 Neut # (Auto) 6.3 Lymph # (Auto) 0.7 L Wood # (Auto) 1.3 H Eos # (Auto) 0.2 Baso # (Auto) 0.1 WBC Differential . Differential Comment Auto diff final Sodium 136 Potassium 4.5 Chloride 107 Carbon Dioxide 20.6 L Anion Gap 8 BUN 21 H Creatinine 1.28 H Estimated GFR 43 L POC Glucose 334 H Random Glucose 189 H Calcium 8.6 Phosphorus 2.8 Magnesium 1.3 L Total Bilirubin 0.1 L AST 15 ALT 16 Alkaline Phosphatase 207 H Total Protein 5.7 L Albumin 2.3 L 05/22/18 05/22/18 07:45 11:53 WBC RBC Hgb Hct MCV MCH MCHC RDW Plt Count MPV Neut % (Auto) Lymph % (Auto) Wood % (Auto) Eos % (Auto) Baso % (Auto) Neut # (Auto) Lymph # (Auto) Wood # (Auto) Eos # (Auto) Baso # (Auto) WBC Differential Differential Comment Sodium Potassium Chloride Carbon Dioxide Anion Gap BUN Creatinine Estimated GFR POC Glucose 198 H 126 H Random Glucose Calcium Phosphorus Magnesium Total Bilirubin AST ALT Alkaline Phosphatase Total Protein Albumin Microbiology 05/21/18 06:11 Blood - Peripheral Aerobic Blood Culture - Preliminary No growth in 1 day 05/21/18 06:11 Blood - Peripheral Anaerobic Blood Culture - Preliminary No growth in 1 day 05/21/18 06:05 Blood - Peripheral Aerobic Blood Culture - Preliminary No growth in 1 day 05/21/18 06:05 Blood - Peripheral Anaerobic Blood Culture - Preliminary No growth in 1 day 05/17/18 01:15 Blood - Peripheral Aerobic Blood Culture - Final No growth in 5 days 05/17/18 01:15 Blood - Peripheral Anaerobic Blood Culture - Final No growth in 5 days 05/17/18 01:19 Blood - Peripheral Aerobic Blood Culture - Final No growth in 5 days 05/17/18 01:19 Blood - Peripheral Anaerobic Blood Culture - Final No growth in 5 days - Imaging Impressions Upper GI and Small Bowel X-Ray 05/21/18 00:00 CONCLUSION: No obstruction is seen. Status post resection of much of the colon. Contrast is seen within the rectum. Pneumobilia. On later images contrast is seen to extend into the biliary system. - Procedures none Assessment and Plan - Plan Fever/leukocytosis Patient with reported fever to 102 at home and with WBCs 15.3 on admission History of ESBL UTI status post Invanz DC'd 1 week [employer] Chest x-ray negative for acute process Urine culture with group D enterococcus and gram neg rafia - E coli ESBL. Received daptomycin and ceftriaxone. Change to PO minocycline based on ID and sensitivities Blood cultures pending Follow culture results, initiate antibiotics if indicated and consider infectious disease consult if fevers/leukocytosis persist Patient has UTI and growing VRE and ESBL E. coli Started minocycline PO however patient noted with fevers 101 on 05/21/18. Blood cultures resent . Starten back on IV abx Imipenem and Zyvox and ID consulted. Continue with tacrolimus and prednisone per nephro. Emesis/regurgitation, improving Patient reports emptying of her stomach contents x2 earlier today Seen by gastroenterology during previous hospitalization, started rifaximin, continue Reglan as patient with history of gastroparesis Last EGD/colonoscopy on 04/05/18 showed food residue in gastric body with normal duodenal mucosa. Colonoscopy revealed internal/external hemorrhoids Patient with follow-up gastroenterology at [facility] appointment on 06/01/18, continue home medications (once reconciled) and follow-up as outpatient Repeat gastroenterology consult if symptoms persist consider azithromycin Patient has refused TPN Consult her GI doctor Continue Reglan 10 mg 3 times daily scheduled as per patient she is taking before meals. Diabetes mellitus Holding long-acting insulin as patient reports she is not tolerating p.o. 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 [place] PO antibiotics today to see if tolerates if tolerate she can be DC poss tomorrow. If not tolerated abx will consult ID for eval and recs of abx at DC. Patient needs to follow up at [facility] after DC Discussed with the patient, nurse, Dr Hughes nephrology, Dr Ahn ID
[2018-05-22] MEDS: Sod Chloride 0.9% Inj 1,000 ML IV.CONT SCH (14:17)
--- NOTE | 2018-05-22 14:46 | P.PNGI ---
Subjective Interval history: Patient laying supine in bed reading Reports tolerated breakfast meal without any noted nausea or vomiting <Yuliana Christine - Last Filed: 05/22/18 14:41> Physical Exam Vital signs: Vital Signs 05/21/18 16:00 05/21/18 20:00 05/22/18 00:00 Temperature 97.4 F L 97.9 F 98.2 F Pulse Rate 76 75 69 Respiratory Rate 18 18 17 Blood Pressure 123/58 L 116/59 L 146/66 H Pulse Oximetry 96 96 95 05/22/18 08:00 05/22/18 12:00 Temperature 97.8 F 98.0 F Pulse Rate 65 67 Respiratory Rate 19 18 Blood Pressure 155/77 H 140/84 Pulse Oximetry 98 97 Intake & Output 05/21/18 05/22/18 05/22/18 18:59 06:59 18:59 Intake Total 1500 / 1500 1979 1400 / 1400 Balance 1500 / 1500 1979 1400 / 1400 Weight 60 kg Intake: IV 1500 / 1500 1500 / 1500 1400 / 1400 NS Inj 1,000 ML @ 70 mls/hr IV. 1000 / 1000 1000 / 1000 1000 / 1000 CONT .[id number] RONALD Rx#:[id number] Primaxin Inj 500 MG In NS Inj 200 / 200 200 / 200 100 / 100 100 ML @ 200 mls/hr IV.SIG Q8H RONALD Rx#:[id number] Zyvox 600 mg Premix 300 ML @ 300 / 300 300 / 300 300 / 300 300 mls/hr IV.SIG Q12H RONALD Rx#: [id number] Oral 480 / 480 Other: # Voids 2 Date of Last Bowel Movement 05/20/18 # Bowel Movements 1 - Constitutional no acute distress - Routine HEENT Exam Head: Present: normocephalic - Routine Respiratory Exam Present: CTA bilaterally - Routine Abdominal Exam Present: soft, normoactive bowel sounds. Absent: distended, guarding, firm - Routine Extremities Exam Absent: edema - Routine Skin Exam Present: dry, warm - Routine Neurological Exam Present: alert <EmmettYuliana - Last Filed: 05/22/18 14:41> Vital signs: Vital Signs 05/22/18 20:00 05/23/18 00:00 05/23/18 08:00 Temperature 98.0 F 98.0 F 98.0 F Pulse Rate 64 65 61 Respiratory Rate 17 17 17 Blood Pressure 155/67 H 150/85 H 140/70 Pulse Oximetry 95 96 97 05/23/18 12:00 05/23/18 16:00 Temperature 97.8 F 98.0 F Pulse Rate 54 L 64 Respiratory Rate 18 17 Blood Pressure 164/79 H 190/79 H Pulse Oximetry 100 100 Intake & Output 05/22/18 05/23/18 05/23/18 18:59 06:59 18:59 Intake Total 2250 / 2250 1060 / 1060 Balance 2250 / 2250 1060 / 1060 Weight 76 kg Intake: IV 1400 / 1400 300 / 300 NS Inj 1,000 ML @ 70 mls/hr IV. 1000 / 1000 300 / 300 CONT .[id number] RONALD Rx#:[id number] Primaxin Inj 500 MG In NS Inj 100 / 100 100 ML @ 200 mls/hr IV.SIG Q8H RONALD Rx#:[id number] Zyvox 600 mg Premix 300 ML @ 300 / 300 300 mls/hr IV.SIG Q12H RONALD Rx#: [id number] Oral 850 / 850 760 / 760 Other: # Voids 6 2 # Bowel Movements 1 <Dominique Kapoor A - Last Filed: 05/23/18 17:52> Results - Labs CBC & Chem 7: 05/22/18 06:10 05/22/18 06:10 Laboratory Results - last 24 hr 05/21/18 05/21/18 05/21/18 16:49 21:21 21:22 WBC RBC Hgb Hct MCV MCH MCHC RDW Plt Count MPV Neut % (Auto) Lymph % (Auto) [place] % (Auto) Eos % (Auto) Baso % (Auto) Neut # (Auto) Lymph # (Auto) [place] # (Auto) Eos # (Auto) Baso # (Auto) WBC Differential Differential Comment Sodium Potassium Chloride Carbon Dioxide Anion Gap BUN Creatinine Estimated GFR POC Glucose 470 H* 539 H* 532 H* Random Glucose Calcium Phosphorus Magnesium Total Bilirubin AST ALT Alkaline Phosphatase Total Protein Albumin Tacrolimus 05/22/18 05/22/18 05/22/18 02:16 06:10 06:10 WBC 8.6 RBC 3.09 L Hgb 8.9 L Hct 26.8 L MCV 86.6 MCH 28.8 MCHC 33.2 RDW 17.6 H Plt Count 572 H MPV 9.4 Neut % (Auto) 72.5 H Lymph % (Auto) 8.6 L [place] % (Auto) 15.5 H Eos % (Auto) 2.8 Baso % (Auto) 0.6 Neut # (Auto) 6.3 Lymph # (Auto) 0.7 L [place] # (Auto) 1.3 H Eos # (Auto) 0.2 Baso # (Auto) 0.1 WBC Differential . Differential Comment Auto diff final Sodium 136 Potassium 4.5 Chloride 107 Carbon Dioxide 20.6 L Anion Gap 8 BUN 21 H Creatinine 1.28 H Estimated GFR 43 L POC Glucose 334 H Random Glucose 189 H Calcium 8.6 Phosphorus 2.8 Magnesium 1.3 L Total Bilirubin 0.1 L AST 15 ALT 16 Alkaline Phosphatase 207 H Total Protein 5.7 L Albumin 2.3 L Tacrolimus 05/22/18 05/22/18 05/22/18 06:10 07:45 11:53 WBC RBC Hgb Hct MCV MCH MCHC RDW Plt Count MPV Neut % (Auto) Lymph % (Auto) [place] % (Auto) Eos % (Auto) Baso % (Auto) Neut # (Auto) Lymph # (Auto) [place] # (Auto) Eos # (Auto) Baso # (Auto) WBC Differential Differential Comment Sodium Potassium Chloride Carbon Dioxide Anion Gap BUN Creatinine Estimated GFR POC Glucose 198 H 126 H Random Glucose Calcium Phosphorus Magnesium Total Bilirubin AST ALT Alkaline Phosphatase Total Protein Albumin Tacrolimus 10.4 Microbiology 05/21/18 06:11 Blood - Peripheral Aerobic Blood Culture - Preliminary No growth in 1 day 05/21/18 06:11 Blood - Peripheral Anaerobic Blood Culture - Preliminary No growth in 1 day 05/21/18 06:05 Blood - Peripheral Aerobic Blood Culture - Preliminary No growth in 1 day 05/21/18 06:05 Blood - Peripheral Anaerobic Blood Culture - Preliminary No growth in 1 day 05/17/18 01:15 Blood - Peripheral Aerobic Blood Culture - Final No growth in 5 days 05/17/18 01:15 Blood - Peripheral Anaerobic Blood Culture - Final No growth in 5 days 05/17/18 01:19 Blood - Peripheral Aerobic Blood Culture - Final No growth in 5 days 05/17/18 01:19 Blood - Peripheral Anaerobic Blood Culture - Final No growth in 5 days - Procedures none <Yuliana Christine - Last Filed: 05/22/18 14:41> - Labs CBC & Chem 7: 05/23/18 06:38 05/23/18 06:38 Laboratory Results - last 24 hr 05/22/18 05/23/18 05/23/18 19:40 06:38 06:38 WBC RBC Hgb Hct MCV MCH MCHC RDW Plt Count MPV Neut % (Auto) Lymph % (Auto) [place]field % (Auto) Eos % (Auto) Baso % (Auto) Neut # (Auto) Lymph # (Auto) [place] # (Auto) Eos # (Auto) Baso # (Auto) WBC Differential Differential Comment Sodium 138 Potassium 4.9 Chloride 106 Carbon Dioxide 25.2 Anion Gap 7 BUN 19 H Creatinine 1.24 H Estimated GFR 45 L POC Glucose 200 H Random Glucose 170 H Calcium 9.0 Magnesium 1.4 L Total Bilirubin 0.2 AST 13 L ALT 16 Alkaline Phosphatase 204 H Total Protein 6.1 L Albumin 2.4 L Tacrolimus 13.3 05/23/18 05/23/18 05/23/18 06:38 07:38 12:45 WBC 6.4 RBC 3.37 L Hgb 9.5 L Hct 28.8 L MCV 85.6 MCH 28.2 MCHC 32.9 RDW 17.3 H Plt Count 623 H MPV 9.4 Neut % (Auto) 72.4 H Lymph % (Auto) 12.8 Whitfield % (Auto) 11.0 H Eos % (Auto) 2.4 Baso % (Auto) 1.4 Neut # (Auto) 4.6 Lymph # (Auto) 0.8 L [place]field # (Auto) 0.7 Eos # (Auto) 0.2 Baso # (Auto) 0.1 WBC Differential . Differential Comment Auto diff final Sodium Potassium Chloride Carbon Dioxide Anion Gap BUN Creatinine Estimated GFR POC Glucose 180 H 150 H Random Glucose Calcium Magnesium Total Bilirubin AST ALT Alkaline Phosphatase Total Protein Albumin Tacrolimus 05/23/18 17:51 WBC RBC Hgb Hct MCV MCH MCHC RDW Plt Count MPV Neut % (Auto) Lymph % (Auto) [place]field % (Auto) Eos % (Auto) Baso % (Auto) Neut # (Auto) Lymph # (Auto) [place] # (Auto) Eos # (Auto) Baso # (Auto) WBC Differential Differential Comment Sodium Potassium Chloride Carbon Dioxide Anion Gap BUN Creatinine Estimated GFR POC Glucose 228 H Random Glucose Calcium Magnesium Total Bilirubin AST ALT Alkaline Phosphatase Total Protein Albumin Tacrolimus Microbiology 05/21/18 06:11 Blood - Peripheral Aerobic Blood Culture - Preliminary No growth in 2 days 05/21/18 06:11 Blood - Peripheral Anaerobic Blood Culture - Preliminary No growth in 2 days 05/21/18 06:05 Blood - Peripheral Aerobic Blood Culture - Preliminary No growth in 2 days 05/21/18 06:05 Blood - Peripheral Anaerobic Blood Culture - Preliminary No growth in 2 days - Imaging Impressions Venous Doppler Study 05/23/18 00:00 CONCLUSION: Right brachial vein DVT Venous Doppler Study 05/23/18 00:00 CONCLUSION: 1. DVT of the left lower extremity. 2. No DVT identified on the right. <Dominique Kapoor - Last Filed: 05/23/18 17:52> Assessment and Plan (1) Abdominal pain Status: Acute Code(s): R10.9 - Unspecified abdominal pain - Plan This patient is a 57-year-old female with a past medical history significant for diabetes, polycystic kidney disease status post right transplant, dumping syndrome previously on TPN, chronic diarrhea, GERD, gastroparesis, DVT on Lovenox, history of ESBL, history of E. coli. Surgical history includes hysterectomy pancreatectomy, choledochojejunostomy, splenectomy, cholecystectomy , right pelvic renal transplant and splenectomy. Patient presented to the emergency room at [facility] on 05/17/2018 with complaint of right lower quadrant and left upper quadrant abdominal pain with accompanied fever chills and nausea and vomiting. Patient reported fever with a temperature of 102 prior to admission. Upon consultation, patient reports that she is concerned about possible obstruction. Patient endorses that she has not been able to eat solid food without regurgitation of solid food for the last 2-3 weeks. She reports abdominal pain and describes it as pressure that is worse after meals. Patient states that her discomfort is in her left upper quadrant and right lower quadrant. Patient endorses feeling reflux of solid food after meals with bloating. She reports throat discomfort with acid reflux. Patient states that she takes Dexilant to control reflux. States that she eats her last meal of the day each day at 4 PM but is still experiencing the symptoms. Patient reports last EGD done 1 month ago and she has an appointment to follow- up with Dr. Pollard on 06/01/2018 to obtain pathology results/ reports. Patient endorses that she has chronic diarrhea and usual bowel movements are light brown in color-on Creon-with no noted bleeding in small amounts of undigested food. Our service has been consulted to evaluate patient's report of abdominal pain with nausea and vomiting Abdominal pain with fever History of GERD and gastroparesis -Patient reporting abdominal pain with regurgitation of solid food for the last 2-3 weeks. Reporting left upper quadrant and right lower quadrant pressure type pain. Patient endorses symptoms despite taking Dexilant to control reflux. -05/17/2018 CT abdomen and pelvis reveal the followin. Extensive postsurgical changes which include a gastrojejunostomy, pancreatectomy, choledochojejunostomy, splenectomy, cholecystectomy and hysterectomy. 2. Right pelvic renal transplant. 3. No evidence of intra-abdominal abscess, free fluid or free air. 4. No evidence of suspicious mass or developing lymphadenopathy. -05/20/2018 hemoglobin 9.3 hematocrit 27.1 platelet count 501 total bilirubin 0.1 AST 11 ALT 14 alk phos 194. -04/05/2018 pathology surgical specimen report-Colon Biopsy-Sections reveal two fragments of colonic mucosa. One shows architectural distortion with irregular gland spacing, paneth cell metaplasia and a significant eosinophilia and neutrophilic infiltrate. These findings suggest an active chronic colitis and raise a differential diagnosis including inflammatory bowel disease and a chronic infectious colitis. No glandular dysplasia is noted. 04/05/2018 EGD findings: Class A esophagitis, approximately 400 cc of fluid retained in the stomach. Gastro jejunostomy identified. Small bowel mucosa normal. Food residue in the gastric body. Normal duodenal mucosa. Retroflex views revealed no abnormalities. 05/21/2018 Patient sitting up in bed. No reported abdominal tenderness. States tolerating diet well and denies nausea or vomiting. Afebrile and 97.7 F 05/21/2018 upper GI and small bowel series:No obstruction is seen. Status post resection of much of the colon. Contrast is seen within the rectum. Pneumobilia. On later images contrast is seen to extend into the biliary system. 05/22/2018 Patient sitting up in bed reading. No reported nausea or vomiting post breakfast meal. Upper GI small bowel series findings as noted above. Afebrile today 98.0 Fahrenheit. Plan -Diabetic diet -monitor labs -Continue antibiotics -Antiemetic and analgesic as per attending -Reglan -Pantoprazole daily -Supportive care -Stable from GI standpoint -Further recommendations to follow This patient has been seen by myself and Dr. Kapoor and this note is written on his behalf - Attending Attestation Dr. Kapoor <Yuliana Christine - Last Filed: 05/22/18 14:41> (1) Abdominal pain Status: Acute Code(s): R10.9 - Unspecified abdominal pain - Attending Attestation Agree with above assessment and plan. Please notify us if needed again. <Dominique Kapoor - Last Filed: 05/23/18 17:52>
--- NOTE | 2018-05-22 14:48 | P.PNNP ---
Subjective Interval history: Patient is a 57-year-old female with history of kidney transplant She felt better today after receiving antibiotic abdominal pain is better Urine output maintains Physical Exam Vital signs: Vital Signs 05/21/18 16:00 05/21/18 20:00 05/22/18 00:00 Temperature 97.4 F L 97.9 F 98.2 F Pulse Rate 76 75 69 Respiratory Rate 18 18 17 Blood Pressure 123/58 L 116/59 L 146/66 H Pulse Oximetry 96 96 95 05/22/18 08:00 05/22/18 12:00 Temperature 97.8 F 98.0 F Pulse Rate 65 67 Respiratory Rate 19 18 Blood Pressure 155/77 H 140/84 Pulse Oximetry 98 97 Intake & Output 05/21/18 05/22/18 05/22/18 18:59 06:59 18:59 Intake Total 1500 / 1500 1979 1400 / 1400 Balance 1500 / 1500 1979 1400 / 1400 Weight 60 kg Intake: IV 1500 / 1500 1500 / 1500 1400 / 1400 NS Inj 1,000 ML @ 70 mls/hr IV. 1000 / 1000 1000 / 1000 1000 / 1000 CONT .[id number] RONALD Rx#:[id number] Primaxin Inj 500 MG In NS Inj 200 / 200 200 / 200 100 / 100 100 ML @ 200 mls/hr IV.SIG Q8H RONALD Rx#:[id number] Zyvox 600 mg Premix 300 ML @ 300 / 300 300 / 300 300 / 300 300 mls/hr IV.SIG Q12H RONALD Rx#: [id number] Oral 480 / 480 Other: # Voids 2 Date of Last Bowel Movement 05/20/18 # Bowel Movements 1 Narrative: Gen. appearance: The patient is very pleasant 57 yo female, appears in nad. Respiratory: Lungs clear to auscultation bilaterally. No wheezes or rhonchi. Abdomen: Soft, diffusely tender to palpation, nondistended. No peritoneal signs. Musculoskeletal: No gross deformities. No edema. Skin: No obvious rashes or erythema. Neuro: Sensory and motor grossly intact. Assessment and Plan - Assessment (1) Renal transplant recipient Code(s): Z94.0 - Kidney transplant status Status: Acute (2) Fever Code(s): R50.9 - Fever, unspecified Status: Acute Qualifiers: Fever type: unspecified Qualified Code(s): R50.9 - Fever, unspecified (3) Abdominal pain Code(s): R10.9 - Unspecified abdominal pain Status: Acute (4) Acute renal failure Code(s): N17.9 - Acute kidney failure, unspecified Status: Acute (5) Gastroparesis Code(s): K31.84 - Gastroparesis Status: Acute (6) Nausea Code(s): R11.0 - Nausea Status: Acute (7) History of intestinal surgery Code(s): Z98.890 - Other specified postprocedural states Status: Acute (8) DM (diabetes mellitus) Code(s): E11.9 - Type 2 diabetes mellitus without complications Status: Acute Qualifiers: Diabetes mellitus type: type 1 (9) Renal insufficiency Code(s): N28.9 - Disorder of kidney and ureter, unspecified Status: Acute - Plan on prednisone 10 mg p.o. daily and tacrolimus 4 mg twice daily, tacrolimus 10.4 today, she has fever now and is going to require infectious disease consult GI following Patient has UTI and growing VRE and ESBL E. coli Adjust antibiotic imipenem and Zyvox ID consult appreciated Tacrolimus levels 10.4 followed level noted levels were drawn at 6:10 AM when she took medication at 9:26 PM Magnesium sulfate 2 g IV ordered Follow magnesium level Continue with tacrolimus and prednisone
[2018-05-22] MEDS: Magnesium Sulfate Inj 2 GM in Sodium Chlor 0.9% Inj 96 ML IV.SIG ONE ×2 (17:08→17:15)
[2018-05-22] MEDS: Enoxaparin Inj 100 MG/ML Syringe SQ SCH (17:09)
[2018-05-22] MEDS ORDERED: Linezolid 600 MG Tablet PO ONE (22:00)
[2018-05-23] MEDS ORDERED: Linezolid 600 MG Tablet PO ONE (02:00)
[2018-05-23] MEDS: Sod Chloride 0.9% Inj 1,000 ML IV.CONT SCH ×2 (02:58→21:47)
[2018-05-23 07:48] LABS: Baso # (Auto) 0.1 th/mm3 (0.0-0.2); Baso % (Auto) 1.4 % (0.0-2.0); Eos # (Auto) 0.2 th/mm3 (0.0-0.4); Eos % (Auto) 2.4 % (0.0-4.0); Hematocrit 28.8 % (35.0-46.0); Hemoglobin 9.5 gm/dL (11.6-15.3); Lymph # (Auto) 0.8 th/mm3 (1.0-4.8); Lymph % (Auto) 12.8 % (9.0-44.0); Mean Corpuscular HGB Conc 32.9 % (32.0-36.0); Mean Corpuscular Hemoglobin 28.2 pg (27.0-34.0); Mean Corpuscular Volume 85.6 fL (80.0-100.0); Mean Platelet Volume 9.4 fL (7.0-11.0); Mono # (Auto) 0.7 th/mm3 (0.0-0.9); Neut # (Auto) 4.6 th/mm3 (1.8-7.7); Neut % (Auto) 72.4 % (16.0-70.0); Platelet Count 623 th/mm3 (150-450); Red Blood Count 3.37 mil/mm3 (4.00-5.30); Red Cell Distribution Width 17.3 % (11.6-17.2); White Blood Count 6.4 th/mm3 (4.0-11.0)
[2018-05-23 08:16] LABS: Alanine Aminotransferase 16 U/L (10-53); Albumin 2.4 g/dL (3.4-5.0); Anion Gap 7 meq/L (5-15); Aspartate Aminotransferase 13 U/L (15-37); Blood Urea Nitrogen 19 mg/dL (7-18); Carbon Dioxide 25.2 meq/L (21.0-32.0); Chloride 106 meq/L (98-107); Glomerular Filtration Rate 45 mL/min (>89); Glucose,Random 170 mg/dL (74-106); Magnesium 1.4 mg/dL (1.5-2.5); Potassium 4.9 meq/L (3.5-5.1); Sodium 138 meq/L (136-145)
[2018-05-23 08:18] LABS: Alkaline Phosphatase 204 U/L (45-117); Total Protein 6.1 g/dL (6.4-8.2)
--- NOTE | 2018-05-23 08:45 | P.PN ---
Subjective Interval history: With persistent low Magnesium replaced by IV yesterday and today Also noted with infiltrated note that patient had a Ward before and might be a candidate for Ward placement, ID to clear patient for line placement. So far repeat blood cx are negative and she has been afebrile Ultrasound shows patient has DVT started on therapeutic Lovenox and Dr. Wallace her oncology hematology DrGinna is consulted Physical Exam Vital signs: Vital Signs 05/22/18 12:00 05/22/18 16:00 05/22/18 20:00 Temperature 98.0 F 97.9 F 98.0 F Pulse Rate 67 60 64 Respiratory Rate 18 19 17 Blood Pressure 140/84 197/88 H 155/67 H Pulse Oximetry 97 98 95 05/23/18 00:00 Temperature 98.0 F Pulse Rate 65 Respiratory Rate 17 Blood Pressure 150/85 H Pulse Oximetry 96 Intake & Output 05/22/18 05/23/18 05/23/18 18:59 06:59 18:59 Intake Total 2250 / 2250 1060 / 1060 Balance 2250 / 2250 1060 / 1060 Weight 76 kg Intake: IV 1400 / 1400 300 / 300 NS Inj 1,000 ML @ 70 mls/hr IV. 1000 / 1000 300 / 300 CONT .[id number] [facility] Rx#:[id number] Primaxin Inj 500 MG In NS Inj 100 / 100 100 ML @ 200 mls/hr IV.SIG Q8H [facility] Rx#:[id number] Zyvox 600 mg Premix 300 ML @ 300 / 300 300 mls/hr IV.SIG Q12H [facility] Rx#: [id number] Oral 850 / 850 760 / 760 Other: # Voids 6 2 # Bowel Movements 1 Narrative: Gen. appearance: The patient is very pleasant 57 yo female, appears in nad. Respiratory: Lungs clear to auscultation bilaterally. No wheezes or rhonchi. Abdomen: Soft, diffusely tender to palpation, nondistended. No peritoneal signs. Musculoskeletal: No gross deformities. No edema. Skin: No obvious rashes or erythema. Neuro: Sensory and motor grossly intact. Cranial nerves II through XII grossly intact. Results - Labs CBC & Chem 7: 05/23/18 06:38 05/23/18 06:38 Laboratory Results - last 24 hr 05/22/18 05/22/18 05/22/18 06:10 11:53 17:02 WBC RBC Hgb Hct MCV MCH MCHC RDW Plt Count MPV Neut % (Auto) Lymph % (Auto) [place] % (Auto) Eos % (Auto) Baso % (Auto) Neut # (Auto) Lymph # (Auto) [place] # (Auto) Eos # (Auto) Baso # (Auto) WBC Differential Differential Comment Sodium Potassium Chloride Carbon Dioxide Anion Gap BUN Creatinine Estimated GFR POC Glucose 126 H 293 H Random Glucose Calcium Magnesium Total Bilirubin AST ALT Alkaline Phosphatase Total Protein Albumin Tacrolimus 10.4 05/22/18 05/23/18 05/23/18 19:40 06:38 06:38 WBC 6.4 RBC 3.37 L Hgb 9.5 L Hct 28.8 L MCV 85.6 MCH 28.2 MCHC 32.9 RDW 17.3 H Plt Count 623 H MPV 9.4 Neut % (Auto) 72.4 H Lymph % (Auto) 12.8 [place] % (Auto) 11.0 H Eos % (Auto) 2.4 Baso % (Auto) 1.4 Neut # (Auto) 4.6 Lymph # (Auto) 0.[address] [place] # (Auto) 0.7 Eos # (Auto) 0.2 Baso # (Auto) 0.1 WBC Differential . Differential Comment Auto diff final Sodium 138 Potassium 4.9 Chloride 106 Carbon Dioxide 25.2 Anion Gap 7 BUN 19 H Creatinine 1.24 H Estimated GFR 45 L POC Glucose 200 H Random Glucose 170 H Calcium 9.0 Magnesium 1.4 L Total Bilirubin 0.2 AST 13 L ALT 16 Alkaline Phosphatase 204 H Total Protein 6.1 L Albumin 2.4 L Tacrolimus 05/23/18 07:38 WBC RBC Hgb Hct MCV MCH MCHC RDW Plt Count MPV Neut % (Auto) Lymph % (Auto) [place] % (Auto) Eos % (Auto) Baso % (Auto) Neut # (Auto) Lymph # (Auto) [place] # (Auto) Eos # (Auto) Baso # (Auto) WBC Differential Differential Comment Sodium Potassium Chloride Carbon Dioxide Anion Gap BUN Creatinine Estimated GFR POC Glucose 180 H Random Glucose Calcium Magnesium Total Bilirubin AST ALT Alkaline Phosphatase Total Protein Albumin Tacrolimus Microbiology 05/21/18 06:11 Blood - Peripheral Aerobic Blood Culture - Preliminary No growth in 1 day 05/21/18 06:11 Blood - Peripheral Anaerobic Blood Culture - Preliminary No growth in 1 day 05/21/18 06:05 Blood - Peripheral Aerobic Blood Culture - Preliminary No growth in 1 day 05/21/18 06:05 Blood - Peripheral Anaerobic Blood Culture - Preliminary No growth in 1 day 05/17/18 01:15 Blood - Peripheral Aerobic Blood Culture - Final No growth in 5 days 05/17/18 01:15 Blood - Peripheral Anaerobic Blood Culture - Final No growth in 5 days 05/17/18 01:19 Blood - Peripheral Aerobic Blood Culture - Final No growth in 5 days 05/17/18 01:19 Blood - Peripheral Anaerobic Blood Culture - Final No growth in 5 days - Procedures none Assessment and Plan - Plan Fever/leukocytosis Patient with reported fever to 102 at home and with WBCs 15.3 on admission History of ESBL UTI status post Invanz DC'd 1 week [employer] Chest x-ray negative for acute process Urine culture with group D enterococcus and gram neg rafia - E coli ESBL. Received daptomycin and ceftriaxone. Change to PO minocycline based on ID and sensitivities Blood cultures pending Follow culture results, initiate antibiotics if indicated and consider infectious disease consult if fevers/leukocytosis persist Patient has UTI and growing VRE and ESBL E. coli Started minocycline PO however patient noted with fevers 101 on 05/21/18. Blood cultures resent . Starten back on IV abx Imipenem and Zyvox and ID consulted. Continue with tacrolimus and prednisone per nephro. Emesis/regurgitation, improving Patient reports emptying of her stomach contents x2 earlier today Seen by gastroenterology during previous hospitalization, started rifaximin, continue Reglan as patient with history of gastroparesis Last EGD/colonoscopy on 04/05/18 showed food residue in gastric body with normal duodenal mucosa. Colonoscopy revealed internal/external hemorrhoids Patient with follow-up gastroenterology at [facility] appointment on 06/01/18, continue home medications (once reconciled) and follow-up as outpatient Repeat gastroenterology consult if symptoms persist consider azithromycin Patient has refused TPN Consult her GI doctor Continue Reglan 10 mg 3 times daily scheduled as per patient she is taking before meals. Diabetes mellitus Holding long-acting insulin as patient reports she is not tolerating p.o. Sliding-scale insulin Monitor blood glucose History of DVT Restarted home Lovenox however repeat doppler Ultrasound shows patient has DVT started on therapeutic Lovenox and Dr. Wallace her oncology hematology Dr. is consulted Abdominal pain with fever History of GERD and gastroparesis H/o extensive abd surgeries Extensive work up as OP With symptoms despite taking Dexilant to control reflux. 05/17/2018 CT abdomen and pelvis reveal the followin. Extensive postsurgical changes which include a gastrojejunostomy, pancreatectomy, choledochojejunostomy, splenectomy, cholecystectomy and hysterectomy. 2. Right pelvic renal transplant. 3. No evidence of intra-abdominal abscess, free fluid or free air. 4. No evidence of suspicious mass or developing lymphadenopathy. 04/05/2018 pathology surgical specimen report-Colon Biopsy-Sections reveal two fragments of colonic mucosa. One shows architectural distortion with irregular gland spacing, paneth cell metaplasia and a significant eosinophilia and neutrophilic infiltrate. These findings suggest an active chronic colitis and raise a differential diagnosis including inflammatory bowel disease and a chronic infectious colitis. No glandular dysplasia is noted. 04/05/2018 EGD findings: Class A esophagitis, approximately 400 cc of fluid retained in the stomach. Gastro jejunostomy identified. Small bowel mucosa normal. Food residue in the gastric body. Normal duodenal mucosa. Retroflex views revealed no abnormalities. 05/21/2018 upper GI and small bowel series:No obstruction is seen. Status post resection of much of the colon. Contrast is seen within the rectum. Pneumobilia. On later images contrast is seen to extend into the biliary system. Persistent hypomagnesemia: Replaced. Continue to monitor and replace as indicated Received 2gm of mag sulfate IV on 05/22 With repeat mag still low on 05/23. Ordered additional 4gm IV mag sulfate. 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 Hughes consulted, and ff appreciate recommendations Thrombocytosis Status post bone marrow biopsy which was nonspecific Platelet count 609 on admission FEN Diabetic diet NS at 70 cc/hr Electrolytes: Monitor and replete as needed Lovenox DC plan : DC when improved and cleared by consultants. Patient needs to follow up at [facility] after DC Patient failed PO antibiotics, had fevers and was started on IV antibiotics , ID consulted. Repeat blood cx so far NTD. Repeat urine cultures Patient needs a Ward for IV abx. Has multiple DVTs lower and upper extremities. POC US consulted for peripheral access for meds administration by IV. Needs a Ward when cleared by ID specialist to have one. Started on full dose lovenox and Dr Wallace is consulted as wel, her hem/onc Dr Discussed with the patient, nurse, Dr Hughes nephrology, Dr Ahn ID
[2018-05-23] MEDS: Carvedilol 12.5 MG Tablet PO SCH ×2 (08:58→21:50)
[2018-05-23] MEDS: Metoclopramide 10 MG Tablet PO SCH ×3 (08:58→17:51)
[2018-05-23] MEDS: Lipase/Protease/Amylase 24/76/120 DR Capsule PO SCH ×3 (08:58→17:51)
[2018-05-23] MEDS: predniSONE 10 MG Tablet PO SCH (08:58)
[2018-05-23] MEDS: Insulin Detemir Inj 1,000 UNIT/10 ML Vial SQ SCH ×2 (08:59→21:58)
[2018-05-23] MEDS: Insulin NovoLOG Aspart Correctional Sugar Inj SQ SCH ×4 (08:59→21:58)
[2018-05-23] MEDS: Sodium Chloride 0.9% 2 ML Flush BID IV.FLUSH SCH ×2 (09:02→21:59)
[2018-05-23] MEDS ORDERED: Magnesium Sulfate Inj 4 GM in Dextrose 5% in Water Inj 100 ML IV.SIG ONE ×2 (09:30)
--- NOTE | 2018-05-23 10:34 | US ---
EXAM DATE: 05/23/2018 10:27 AM EST AGE/SEX: 57 years / Female INDICATIONS: Bilateral arm pain. CLINICAL DATA: This is the patient's subsequent encounter. Patient reports that signs and symptoms h ave been present for 1 day and indicates a pain score of 1/10. MEDICAL/SURGICAL HISTORY: . Diabetes mellitus type II. Hypertension. Renal insufficiency, chron ic. Polycystic kidneys and liver. . Appendectomy. Hysterectomy. Cholecystectomy. Nephrectomy x 2, p artial gastrectomy. Kidney transplant. COMPARISON: [facility] [place], US VENOUS DOPPLER ARM BI, 04/27/2018. . FINDINGS: Right Upper Extremity: There is incompletely occlusive thrombus present in portions of the mid to di stal right brachial vein. The more proximal deep venous structures are patent. Specifically, the axil john and subclavian veins are patent. The jugular vein is patent. Left Upper Extremity: The vessels are compressible and augmentation response is documented. No filli ng defects are seen. The flow is phasic with respiration. Other: None. CONCLUSION: Right brachial vein DVT Electronically signed by: Renny Galan MD 05/23/2018 10:33 AM EST
[2018-05-23] MEDS: Magnesium Oxide 400 MG Tablet PO SCH ×2 (13:03→21:51)
--- NOTE | 2018-05-23 14:59 | P.PNID ---
Subjective Remarks: Patient lost IV access. Developed brachial vein thrombosis at LUE. Vascular access unable to place new IV. Afebrile. Blood cultures taken on admission have no growth. 57-year-old white female who is status post renal transplantation. The patient has had recurrent urinary tract infection. She was recently treated for UTI with ertapenem for resistant bacteria. She received 2 weeks of antibiotics and she was readmitted again because of fever. The course of antibiotic with ertapenem completed on 05/12/2018. The patient was evaluated and cultures of the urine were sent. The urine culture came back with extended-spectrum beta-lactamase Escherichia coli, which is resistant to ertapenem and also VRE. Prior to the ertapenem she was on meropenem. The VRE is sensitive to Zyvox. The ESBL Escherichia coli is sensitive to imipenem. Past Medical History: PAST MEDICAL HISTORY: Diabetes mellitus, gastroesophageal reflux disease, gastroparesis dumping syndrome, chronic kidney disease, liver disease, recurrent urinary tract infection, history of femur fracture, history of splenectomy, history of colectomy, history of oophorectomy, history of pancreatectomy, renal transplant 6 months ago. Allergies/Adverse Reactions: Allergies metronidazole [From Flagyl] Allergy (Mild, Verified 04/22/18 16:51) Swelling of the Eye oxycodone Allergy (Mild, Verified 04/22/18 16:52) Itching, Generalized oxytetracycline [From Terramycin] Allergy (Mild, Verified 03/27/18 18:27) Hives fentanyl Allergy (Verified 04/05/18 17:07) Edema filgrastim [From Neupogen] Allergy (Verified 04/05/18 10:48) Anaphylaxis Objective Vital Signs 05/22/18 16:00 05/22/18 20:00 05/23/18 00:00 Temperature 97.9 F 98.0 F 98.0 F Pulse Rate 60 64 65 Respiratory Rate 19 17 17 Blood Pressure 197/88 H 155/67 H 150/85 H Pulse Oximetry 98 95 96 05/23/18 08:00 05/23/18 12:00 Temperature 98.0 F 97.8 F Pulse Rate 61 54 L Respiratory Rate 17 18 Blood Pressure 140/70 164/79 H Pulse Oximetry 97 100 Intake & Output 05/22/18 05/23/18 05/23/18 18:59 06:59 18:59 Intake Total 2250 / 2250 1060 / 1060 Balance 2250 / 2250 1060 / 1060 Weight 76 kg Intake: IV 1400 / 1400 300 / 300 NS Inj 1,000 ML @ 70 mls/hr IV. 1000 / 1000 300 / 300 CONT .[id number] [facility] Rx#:[id number] Primaxin Inj 500 MG In NS Inj 100 / 100 100 ML @ 200 mls/hr IV.SIG Q8H [facility] Rx#:[id number] Zyvox 600 mg Premix 300 ML @ 300 / 300 300 mls/hr IV.SIG Q12H [facility] Rx#: [id number] Oral 850 / 850 760 / 760 Other: # Voids 6 2 # Bowel Movements 1 05/23/18 12:00 Catheterized Urine Urine Culture - Pending 05/21/18 06:11 Blood - Peripheral Aerobic Blood Culture - Preliminary No growth in 2 days 05/21/18 06:11 Blood - Peripheral Anaerobic Blood Culture - Preliminary No growth in 2 days 05/21/18 06:05 Blood - Peripheral Aerobic Blood Culture - Preliminary No growth in 2 days 05/21/18 06:05 Blood - Peripheral Anaerobic Blood Culture - Preliminary No growth in 2 days 05/17/18 01:15 Blood - Peripheral Aerobic Blood Culture - Final No growth in 5 days 05/17/18 01:15 Blood - Peripheral Anaerobic Blood Culture - Final No growth in 5 days 05/17/18 01:19 Blood - Peripheral Aerobic Blood Culture - Final No growth in 5 days 05/17/18 01:19 Blood - Peripheral Anaerobic Blood Culture - Final No growth in 5 days 05/17/18 01:30 Clean Catch Urine Urine Culture - Final Escherichia coli ESBL positive Enterococcus faecium Lab - Hematology Results 05/22/18 05/23/18 06:10 06:38 WBC 8.6 6.4 RBC 3.09 L 3.37 L Hgb 8.9 L 9.5 L Hct 26.8 L 28.8 L MCV 86.6 85.6 MCH 28.8 28.2 MCHC 33.2 32.9 RDW 17.6 H 17.3 H Plt Count 572 H 623 H MPV 9.4 9.4 Neut % (Auto) 72.5 H 72.4 H Lymph % (Auto) 8.6 L 12.8 [place] % (Auto) 15.5 H 11.0 H Eos % (Auto) 2.8 2.4 Baso % (Auto) 0.6 1.4 Neut # (Auto) 6.3 4.6 Lymph # (Auto) 0.7 L 0.8 L [place] # (Auto) 1.3 H 0.7 Eos # (Auto) 0.2 0.2 Baso # (Auto) 0.1 0.1 WBC Differential . . Differential Comment Auto diff final Auto diff final Lab - Chemistry Results 05/21/18 05/21/18 05/21/18 16:49 21:21 21:22 Sodium Potassium Chloride Carbon Dioxide Anion Gap BUN Creatinine Estimated GFR POC Glucose 470 H* 539 H* 532 H* Random Glucose Calcium Phosphorus Magnesium Total Bilirubin AST ALT Alkaline Phosphatase Total Protein Albumin 05/22/18 05/22/18 05/22/18 02:16 06:10 07:45 Sodium 136 Potassium 4.5 Chloride 107 Carbon Dioxide 20.6 L Anion Gap 8 BUN 21 H Creatinine 1.28 H Estimated GFR 43 L POC Glucose 334 H 198 H Random Glucose 189 H Calcium 8.6 Phosphorus 2.8 Magnesium 1.3 L Total Bilirubin 0.1 L AST 15 ALT 16 Alkaline Phosphatase 207 H Total Protein 5.7 L Albumin 2.3 L 05/22/18 05/22/18 05/22/18 11:53 17:02 19:40 Sodium Potassium Chloride Carbon Dioxide Anion Gap BUN Creatinine Estimated GFR POC Glucose 126 H 293 H 200 H Random Glucose Calcium Phosphorus Magnesium Total Bilirubin AST ALT Alkaline Phosphatase Total Protein Albumin 05/23/18 05/23/18 05/23/18 06:38 07:38 12:45 Sodium 138 Potassium 4.9 Chloride 106 Carbon Dioxide 25.2 Anion Gap 7 BUN 19 H Creatinine 1.24 H Estimated GFR 45 L POC Glucose 180 H 150 H Random Glucose 170 H Calcium 9.0 Phosphorus Magnesium 1.4 L Total Bilirubin 0.2 AST 13 L ALT 16 Alkaline Phosphatase 204 H Total Protein 6.1 L Albumin 2.4 L Imaging: ITS Impressions Abdomen/Pelvis CT 05/17/18 00:00 CONCLUSION: 1. Extensive postsurgical changes which include a gastrojejunostomy, pancreatectomy, choledochojejunostomy, splenectomy, cholecystectomy and hysterectomy. 2. Right pelvic renal transplant. 3. No evidence of intra-abdominal abscess, free fluid or free air. 4. No evidence of suspicious mass or developing lymphadenopathy. Chest X-Ray 05/21/18 00:00 CONCLUSION: No active disease. Minimal linear scarring left lung base. Upper GI and Small Bowel X-Ray 05/21/18 00:00 CONCLUSION: No obstruction is seen. Status post resection of much of the colon. Contrast is seen within the rectum. Pneumobilia. On later images contrast is seen to extend into the biliary system. Venous Doppler Study 05/23/18 00:00 CONCLUSION: Right brachial vein DVT Physical Exam: PHYSICAL EXAMINATION: GENERAL: No acute distress. HEENT: The head is atraumatic. Extraocular movements grossly intact. Pupils reactive to light. No icterus. Oropharynx moist mucosa without lesions. NECK: Supple without adenopathy. LUNGS: Clear breath sounds. HEART: Regular S1, S2, without murmurs. ABDOMEN: Bowel sounds present. Soft, nontender. Right lower abdomen site of renal transplantation has no erythema. EXTREMITIES: No clubbing, cyanosis, or edema. Tiny cord at RUE above elbow. SKIN: No rash. NEUROLOGIC: No gross focal findings. PSYCHIATRIC: Calm and cooperative. Assessment and Plan - Plan IMPRESSION: 1. Recurrent urinary tract infection. Patient with Escherichia coli, ESBL, which is now resistant to ertapenem. Previous treatment with ertapenem. The patient also has Enterococcus faecium in addition to the ESBL E. coli. 2. Renal transplant status. 3. Fever and chills. 4. Leukocytosis. Improved. RECOMMENDATIONS: 1. Continue the imipenem for the beta-lactamase Escherichia coli. Had to place on hold because of Iv access issues. 2. Continue Zyvox for VRE. can give PO. 3. Can continue doxycycline PO. 4. Monitor temperature and white count. 5. Monitor blood culture. 6. Follow repeat urine culture. ? placement of Ward for IV access if needed. Will notify Dr. Austin to resume ID follow up tomorrow.
--- NOTE | 2018-05-23 15:20 | US ---
EXAM DATE: 05/23/2018 3:08 PM EST AGE/SEX: 57 years / Female INDICATIONS: Leg pain and swelling. CLINICAL DATA: This is the patient's initial encounter. Patient reports that signs and symptoms have been present for 1 day and indicates a pain score of 0/10. MEDICAL/SURGICAL HISTORY: Diabetes. Gastroesophageal reflux disease. Gastroparesis. Dumping sy ndrome. Femur fracture. Kidney failure. ESBL E.Coli. Hysterectomy. Splenectomy. Oophorectomy. Pancr eatectomy. Right kidney transplant. ORIF right leg. Colectomy. COMPARISON: [facility] [place] VENOUS DOPPLER LEG BI, 04/04/2018. . TECHNIQUE: Venous ultrasound of both lower extremities was performed from the inguinal ligament to t he proximal calf. Real-time, color Doppler and spectral tracing, compression and augmentation techni ques were used. FINDINGS: Right Leg: Normal compression of the deep venous system from the inguinal region to the proximal cele f. No echogenic clot is seen. Normal response of the venous system to augmentation and respiration. Left Leg: The examination demonstrates partially occlusive DVT involving the saphenofemoral vein thr oughout. Other: None. CONCLUSION: 1. DVT of the left lower extremity. 2. No DVT identified on the right. Electronically signed by: Abraham Dai MD 05/23/2018 3:19 PM EST
--- NOTE | 2018-05-23 16:25 | P.PNGI ---
Subjective Interval history: Patient sitting up in bed Denies any nausea vomiting States tolerating diet well <Yuliana Christine - Last Filed: 05/23/18 16:22> Physical Exam Vital signs: Vital Signs 05/22/18 20:00 05/23/18 00:00 05/23/18 08:00 Temperature 98.0 F 98.0 F 98.0 F Pulse Rate 64 65 61 Respiratory Rate 17 17 17 Blood Pressure 155/67 H 150/85 H 140/70 Pulse Oximetry 95 96 97 05/23/18 12:00 Temperature 97.8 F Pulse Rate 54 L Respiratory Rate 18 Blood Pressure 164/79 H Pulse Oximetry 100 Intake & Output 05/22/18 05/23/18 05/23/18 18:59 06:59 18:59 Intake Total 2250 / 2250 1060 / 1060 Balance 2250 / 2250 1060 / 1060 Weight 76 kg Intake: IV 1400 / 1400 300 / 300 NS Inj 1,000 ML @ 70 mls/hr IV. 1000 / 1000 300 / 300 CONT .[id number] [facility] Rx#:[id number] Primaxin Inj 500 MG In NS Inj 100 / 100 100 ML @ 200 mls/hr IV.SIG Q8H RON[facility]D Rx#:[id number] Zyvox 600 mg Premix 300 ML @ 300 / 300 300 mls/hr IV.SIG Q12H RONALD Rx#: [id number] Oral 850 / 850 760 / 760 Other: # Voids 6 2 # Bowel Movements 1 - Constitutional no acute distress - Routine HEENT Exam Head: Present: normocephalic - Routine Respiratory Exam Present: CTA bilaterally - Routine Abdominal Exam Present: soft, normoactive bowel sounds. Absent: distended, guarding, firm - Routine Skin Exam Present: dry, warm - Routine Neurological Exam Present: alert - Routine Psychiatric Exam Present: normal affect, cooperative <Yuliana Christine - Last Filed: 05/23/18 16:22> Vital signs: Vital Signs 05/22/18 20:00 05/23/18 00:00 05/23/18 08:00 Temperature 98.0 F 98.0 F 98.0 F Pulse Rate 64 65 61 Respiratory Rate 17 17 17 Blood Pressure 155/67 H 150/85 H 140/70 Pulse Oximetry 95 96 97 05/23/18 12:00 05/23/18 16:00 Temperature 97.8 F 98.0 F Pulse Rate 54 L 64 Respiratory Rate 18 17 Blood Pressure 164/79 H 190/79 H Pulse Oximetry 100 100 Intake & Output 05/22/18 05/23/18 05/23/18 18:59 06:59 18:59 Intake Total 2250 / 2250 1060 / 1060 Balance 2250 / 2250 1060 / 1060 Weight 76 kg Intake: IV 1400 / 1400 300 / 300 NS Inj 1,000 ML @ 70 mls/hr IV. 1000 / 1000 300 / 300 CONT .[id number] [facility] Rx#:[id number] Primaxin Inj 500 MG In NS Inj 100 / 100 100 ML @ 200 mls/hr IV.SIG Q8H RONAL[facility] Rx#:[id number] Zyvox 600 mg Premix 300 ML @ 300 / 300 300 mls/hr IV.SIG Q12H RONALD Rx#: [id number] Oral 850 / 850 760 / 760 Other: # Voids 6 2 # Bowel Movements 1 <Dominique Kpaoor A - Last Filed: 05/23/18 17:53> Results - Labs CBC & Chem 7: 05/23/18 06:38 05/23/18 06:38 Laboratory Results - last 24 hr 05/22/18 05/22/18 05/23/18 17:02 19:40 06:38 WBC RBC Hgb Hct MCV MCH MCHC RDW Plt Count MPV Neut % (Auto) Lymph % (Auto) Fountain % (Auto) Eos % (Auto) Baso % (Auto) Neut # (Auto) Lymph # (Auto) Fountain # (Auto) Eos # (Auto) Baso # (Auto) WBC Differential Differential Comment Sodium 138 Potassium 4.9 Chloride 106 Carbon Dioxide 25.2 Anion Gap 7 BUN 19 H Creatinine 1.24 H Estimated GFR 45 L POC Glucose 293 H 200 H Random Glucose 170 H Calcium 9.0 Magnesium 1.4 L Total Bilirubin 0.2 AST 13 L ALT 16 Alkaline Phosphatase 204 H Total Protein 6.1 L Albumin 2.4 L Tacrolimus 05/23/18 05/23/18 05/23/18 06:38 06:38 07:38 WBC 6.4 RBC 3.37 L Hgb 9.5 L Hct 28.8 L MCV 85.6 MCH 28.2 MCHC 32.9 RDW 17.3 H Plt Count 623 H MPV 9.4 Neut % (Auto) 72.4 H Lymph % (Auto) 12.8 Fountain % (Auto) 11.0 H Eos % (Auto) 2.4 Baso % (Auto) 1.4 Neut # (Auto) 4.6 Lymph # (Auto) 0.8 L Fountain # (Auto) 0.7 Eos # (Auto) 0.2 Baso # (Auto) 0.1 WBC Differential . Differential Comment Auto diff final Sodium Potassium Chloride Carbon Dioxide Anion Gap BUN Creatinine Estimated GFR POC Glucose 180 H Random Glucose Calcium Magnesium Total Bilirubin AST ALT Alkaline Phosphatase Total Protein Albumin Tacrolimus 13.3 05/23/18 12:45 WBC RBC Hgb Hct MCV MCH MCHC RDW Plt Count MPV Neut % (Auto) Lymph % (Auto) Fountain % (Auto) Eos % (Auto) Baso % (Auto) Neut # (Auto) Lymph # (Auto) Fountain # (Auto) Eos # (Auto) Baso # (Auto) WBC Differential Differential Comment Sodium Potassium Chloride Carbon Dioxide Anion Gap BUN Creatinine Estimated GFR POC Glucose 150 H Random Glucose Calcium Magnesium Total Bilirubin AST ALT Alkaline Phosphatase Total Protein Albumin Tacrolimus Microbiology 05/21/18 06:11 Blood - Peripheral Aerobic Blood Culture - Preliminary No growth in 2 days 05/21/18 06:11 Blood - Peripheral Anaerobic Blood Culture - Preliminary No growth in 2 days 05/21/18 06:05 Blood - Peripheral Aerobic Blood Culture - Preliminary No growth in 2 days 05/21/18 06:05 Blood - Peripheral Anaerobic Blood Culture - Preliminary No growth in 2 days - Imaging Impressions Venous Doppler Study 05/23/18 00:00 CONCLUSION: Right brachial vein DVT Venous Doppler Study 05/23/18 00:00 CONCLUSION: 1. DVT of the left lower extremity. 2. No DVT identified on the right. - Procedures none <Yuliana Christine - Last Filed: 05/23/18 16:22> - Labs CBC & Chem 7: 05/23/18 06:38 05/23/18 06:38 Laboratory Results - last 24 hr 05/22/18 05/23/18 05/23/18 19:40 06:38 06:38 WBC RBC Hgb Hct MCV MCH MCHC RDW Plt Count MPV Neut % (Auto) Lymph % (Auto) Fountain % (Auto) Eos % (Auto) Baso % (Auto) Neut # (Auto) Lymph # (Auto) Fountain # (Auto) Eos # (Auto) Baso # (Auto) WBC Differential Differential Comment Sodium 138 Potassium 4.9 Chloride 106 Carbon Dioxide 25.2 Anion Gap 7 BUN 19 H Creatinine 1.24 H Estimated GFR 45 L POC Glucose 200 H Random Glucose 170 H Calcium 9.0 Magnesium 1.4 L Total Bilirubin 0.2 AST 13 L ALT 16 Alkaline Phosphatase 204 H Total Protein 6.1 L Albumin 2.4 L Tacrolimus 13.3 05/23/18 05/23/18 05/23/18 06:38 07:38 12:45 WBC 6.4 RBC 3.37 L Hgb 9.5 L Hct 28.8 L MCV 85.6 MCH 28.2 MCHC 32.9 RDW 17.3 H Plt Count 623 H MPV 9.4 Neut % (Auto) 72.4 H Lymph % (Auto) 12.8 Fountain % (Auto) 11.0 H Eos % (Auto) 2.4 Baso % (Auto) 1.4 Neut # (Auto) 4.6 Lymph # (Auto) 0.8 L Fountain # (Auto) 0.7 Eos # (Auto) 0.2 Baso # (Auto) 0.1 WBC Differential . Differential Comment Auto diff final Sodium Potassium Chloride Carbon Dioxide Anion Gap BUN Creatinine Estimated GFR POC Glucose 180 H 150 H Random Glucose Calcium Magnesium Total Bilirubin AST ALT Alkaline Phosphatase Total Protein Albumin Tacrolimus 05/23/18 17:51 WBC RBC Hgb Hct MCV MCH MCHC RDW Plt Count MPV Neut % (Auto) Lymph % (Auto) Fountain % (Auto) Eos % (Auto) Baso % (Auto) Neut # (Auto) Lymph # (Auto) Fountain # (Auto) Eos # (Auto) Baso # (Auto) WBC Differential Differential Comment Sodium Potassium Chloride Carbon Dioxide Anion Gap BUN Creatinine Estimated GFR POC Glucose 228 H Random Glucose Calcium Magnesium Total Bilirubin AST ALT Alkaline Phosphatase Total Protein Albumin Tacrolimus Microbiology 05/21/18 06:11 Blood - Peripheral Aerobic Blood Culture - Preliminary No growth in 2 days 05/21/18 06:11 Blood - Peripheral Anaerobic Blood Culture - Preliminary No growth in 2 days 05/21/18 06:05 Blood - Peripheral Aerobic Blood Culture - Preliminary No growth in 2 days 05/21/18 06:05 Blood - Peripheral Anaerobic Blood Culture - Preliminary No growth in 2 days - Imaging Impressions Venous Doppler Study 05/23/18 00:00 CONCLUSION: Right brachial vein DVT Venous Doppler Study 05/23/18 00:00 CONCLUSION: 1. DVT of the left lower extremity. 2. No DVT identified on the right. <EmeliaRejiramiro Woodward - Last Filed: 05/23/18 17:53> Assessment and Plan (1) Abdominal pain Status: Acute Code(s): R10.9 - Unspecified abdominal pain - Plan This patient is a 57-year-old female with a past medical history significant for diabetes, polycystic kidney disease status post right transplant, dumping syndrome previously on TPN, chronic diarrhea, GERD, gastroparesis, DVT on Lovenox, history of ESBL, history of E. coli. Surgical history includes hysterectomy pancreatectomy, choledochojejunostomy, splenectomy, cholecystectomy , right pelvic renal transplant and splenectomy. Patient presented to the emergency room at [facility] on 05/17/2018 with complaint of right lower quadrant and left upper quadrant abdominal pain with accompanied fever chills and nausea and vomiting. Patient reported fever with a temperature of 102 prior to admission. Upon consultation, patient reports that she is concerned about possible obstruction. Patient endorses that she has not been able to eat solid food without regurgitation of solid food for the last 2-3 weeks. She reports abdominal pain and describes it as pressure that is worse after meals. Patient states that her discomfort is in her left upper quadrant and right lower quadrant. Patient endorses feeling reflux of solid food after meals with bloating. She reports throat discomfort with acid reflux. Patient states that she takes Dexilant to control reflux. States that she eats her last meal of the day each day at 4 PM but is still experiencing the symptoms. Patient reports last EGD done 1 month ago and she has an appointment to follow- up with Dr. Pollard on 06/01/2018 to obtain pathology results/ reports. Patient endorses that she has chronic diarrhea and usual bowel movements are light brown in color-on Creon-with no noted bleeding in small amounts of undigested food. Our service has been consulted to evaluate patient's report of abdominal pain with nausea and vomiting Abdominal pain with fever History of GERD and gastroparesis -Patient reporting abdominal pain with regurgitation of solid food for the last 2-3 weeks. Reporting left upper quadrant and right lower quadrant pressure type pain. Patient endorses symptoms despite taking Dexilant to control reflux. -05/17/2018 CT abdomen and pelvis reveal the followin. Extensive postsurgical changes which include a gastrojejunostomy, pancreatectomy, choledochojejunostomy, splenectomy, cholecystectomy and hysterectomy. 2. Right pelvic renal transplant. 3. No evidence of intra-abdominal abscess, free fluid or free air. 4. No evidence of suspicious mass or developing lymphadenopathy. -05/20/2018 hemoglobin 9.3 hematocrit 27.1 platelet count 501 total bilirubin 0.1 AST 11 ALT 14 alk phos 194. -04/05/2018 pathology surgical specimen report-Colon Biopsy-Sections reveal two fragments of colonic mucosa. One shows architectural distortion with irregular gland spacing, paneth cell metaplasia and a significant eosinophilia and neutrophilic infiltrate. These findings suggest an active chronic colitis and raise a differential diagnosis including inflammatory bowel disease and a chronic infectious colitis. No glandular dysplasia is noted. 04/05/2018 EGD findings: Class A esophagitis, approximately 400 cc of fluid retained in the stomach. Gastro jejunostomy identified. Small bowel mucosa normal. Food residue in the gastric body. Normal duodenal mucosa. Retroflex views revealed no abnormalities. 05/21/2018 Patient sitting up in bed. No reported abdominal tenderness. States tolerating diet well and denies nausea or vomiting. Afebrile and 97.7 F 05/21/2018 upper GI and small bowel series:No obstruction is seen. Status post resection of much of the colon. Contrast is seen within the rectum. Pneumobilia. On later images contrast is seen to extend into the biliary system. 05/22/2018 Patient sitting up in bed reading. No reported nausea or vomiting post breakfast meal. Upper GI small bowel series findings as noted above. Afebrile today 98.0 Fahrenheit. 05/23/2018 Patient sitting up in bed Denies any nausea or vomiting with meals. Next Hemoglobin 9.5 hematocrit 28.8. Stable Plan -Diabetic diet -monitor labs -antibiotics as per attending -Antiemetic and analgesic as per attending -Reglan-prokinetic AC -Pantoprazole daily -Supportive care -Stable from GI standpoint This patient has been seen by myself and Dr. Kapoor and this note is written on his behalf - Attending Attestation Dr. Kapoor <Yuliana Christine - Last Filed: 05/23/18 16:22> (1) Abdominal pain Status: Acute Code(s): R10.9 - Unspecified abdominal pain - Attending Attestation Plan as above. Please notify us if needed again. <Dominique Kapoor - Last Filed: 05/23/18 17:53>
--- NOTE | 2018-05-23 16:44 | P.PNNP ---
Subjective Interval history: Patient has lost her IV, Dopplers done showed DVT in the left leg and right arm Physical Exam Vital signs: Vital Signs 05/22/18 20:00 05/23/18 00:00 05/23/18 08:00 Temperature 98.0 F 98.0 F 98.0 F Pulse Rate 64 65 61 Respiratory Rate 17 17 17 Blood Pressure 155/67 H 150/85 H 140/70 Pulse Oximetry 95 96 97 05/23/18 12:00 Temperature 97.8 F Pulse Rate 54 L Respiratory Rate 18 Blood Pressure 164/79 H Pulse Oximetry 100 Intake & Output 05/22/18 05/23/18 05/23/18 18:59 06:59 18:59 Intake Total 2250 / 2250 1060 / 1060 Balance 2250 / 2250 1060 / 1060 Weight 76 kg Intake: IV 1400 / 1400 300 / 300 NS Inj 1,000 ML @ 70 mls/hr IV. 1000 / 1000 300 / 300 CONT .[id number] RONALD Rx#:[id number] Primaxin Inj 500 MG In NS Inj 100 / 100 100 ML @ 200 mls/hr IV.SIG Q8H RONALD Rx#:[id number] Zyvox 600 mg Premix 300 ML @ 300 / 300 300 mls/hr IV.SIG Q12H RONALD Rx#: [id number] Oral 850 / 850 760 / 760 Other: # Voids 6 2 # Bowel Movements 1 Narrative: Gen. appearance: The patient is very pleasant 57 yo female, appears in nad. Respiratory: Lungs clear to auscultation bilaterally. No wheezes or rhonchi. Abdomen: Soft, diffusely tender to palpation, nondistended. No peritoneal signs. Musculoskeletal: No gross deformities. No edema. Skin: No obvious rashes or erythema. Neuro: Sensory and motor grossly intact. Cranial nerves II through XII grossly intact. Assessment and Plan - Assessment (1) Renal transplant recipient Code(s): Z94.0 - Kidney transplant status Status: Acute (2) Fever Code(s): R50.9 - Fever, unspecified Status: Acute Qualifiers: Fever type: unspecified Qualified Code(s): R50.9 - Fever, unspecified (3) Abdominal pain Code(s): R10.9 - Unspecified abdominal pain Status: Acute (4) Acute renal failure Code(s): N17.9 - Acute kidney failure, unspecified Status: Acute (5) Gastroparesis Code(s): K31.84 - Gastroparesis Status: Acute (6) Nausea Code(s): R11.0 - Nausea Status: Acute (7) History of intestinal surgery Code(s): Z98.890 - Other specified postprocedural states Status: Acute (8) DM (diabetes mellitus) Code(s): E11.9 - Type 2 diabetes mellitus without complications Status: Acute Qualifiers: Diabetes mellitus type: type 1 (9) Renal insufficiency Code(s): N28.9 - Disorder of kidney and ureter, unspecified Status: Acute - Plan on prednisone 10 mg p.o. daily and tacrolimus 4 mg twice daily, tacrolimus 13.3 today, she has fever now and is going to require infectious disease consult GI following Patient has UTI and growing VRE and ESBL E. coli Adjust antibiotic imipenem and Zyvox ID consult appreciated Tacrolimus levels 13.3 followed level noted levels again I will hold evening dose Need IV to reestablish request Ward catheter Follow magnesium level Continue with tacrolimus and prednisone
[2018-05-23] MEDS ORDERED: Enoxaparin Inj 80 MG/0.8 ML Syringe SQ SCH (21:00)
--- NOTE | 2018-05-23 21:33 | MB ---
cc: Catina Wallace MD DATE: 05/23/2018 CHIEF COMPLAINT: 1. Thrombocytosis, reactive. 2. Venous thromboembolism. HISTORY OF PRESENT ILLNESS: Ms. Bailey is a 57-year-old lady status post renal transplantation and complicated gastrointestinal history including gastroparesis and dumping syndrome. She also has a history of a reactive thrombocytosis, status post bone marrow biopsy with no evidence of underlying myeloproliferative neoplasm and she also has a history of recurrent venous thromboembolism and is on Lovenox therapy. She was admitted to the hospital for VRE, ESBL, Escherichia coli urinary tract infection after she was found to have a temperature. PAST MEDICAL HISTORY: 1. Chronic kidney disease, status post transplant. 2. Diabetes. 3. Acid reflux. 4. Gastroparesis. 5. Dumping syndrome. 6. Splenectomy. SOCIAL HISTORY: Denies tobacco, alcohol, or illegal drug use. FAMILY HISTORY: No known family history of venous thromboembolism. REVIEW OF SYSTEMS: As above in the HPI. All others negative. PHYSICAL EXAMINATION: VITAL SIGNS: Temperature 98, pulse is 64, respiratory rate 17, blood pressure 190/79. LABORATORY STUDIES: White blood cell count 6.4, hemoglobin 9.5, platelet count of 623,000. Creatinine is 1.24. Total bilirubin 0.2, AST 13, ALT 16, alkaline phosphatase 204, total protein 6.1, albumin 2.4. IMAGING STUDIES: Doppler ultrasound of bilateral lower extremities with deep venous thrombosis of the left lower extremity. Doppler ultrasound of the upper extremity with right brachial DVT. PHYSICAL EXAMINATION: GENERAL: Thin, chronically ill-appearing lady in no distress. HEENT: Head is normocephalic, atraumatic. Eyes with no scleral icterus. NECK: Supple. CARDIOVASCULAR: Regular rate and rhythm. No murmurs are noted bilaterally. ABDOMEN: Soft, nontender, nondistended. Normoactive bowel sounds. EXTREMITIES: No edema. NEUROLOGIC: Grossly nonfocal. PSYCHIATRIC: Appropriate mood and affect. ASSESSMENT AND PLAN: 1. Venous thromboembolism. History of past unprovoked venous thromboembolism, now with a recurrent DVT. Due to her severe gastroparesis and dumping syndrome issues, she is not a candidate for oral therapy. She would not be a candidate for rivaroxaban, apixaban or warfarin. We will continue with Lovenox therapy. We will have Lovenox 1 with twice-daily dosing as opposed to once a day dosing as this will provide a longer degree of therapeutic anticoagulation. We will also add a baby aspirin. Discussed that with aspirin and concurrent bone density and anticoagulation that there will be an increased risk of bleeding. However, the patient has proven that she is hypercoagulable. She has frequent hospitalizations and frequent periods of immobilization and she does have a known thrombocytosis due to reactive means that sometimes get up over a million, feel that this will help to prevent clotting from happening. The patient expressed understanding and is in agreement. 2. Thrombocytosis, reactive. Status post bone marrow biopsy with no underlying evidence of myeloproliferative neoplasm. 3. Status post renal transplantation with nephrology team following. MD JOSEPH Montes/donato , 06:15 PM , 06:22 PM
[2018-05-23] MEDS: Linezolid 600 MG Tablet PO SCH (21:50)
[2018-05-24 07:20] LABS: Baso % (Auto) 0.5 % (0.0-2.0); Eos # (Auto) 0.1 th/mm3 (0.0-0.4); Eos % (Auto) 1.8 % (0.0-4.0); Hemoglobin 9.8 gm/dL (11.6-15.3); Lymph % (Auto) 16.6 % (9.0-44.0); Mean Corpuscular HGB Conc 33.7 % (32.0-36.0); Mean Corpuscular Hemoglobin 28.7 pg (27.0-34.0); Mono # (Auto) 0.7 th/mm3 (0.0-0.9); Mono % (Auto) 11.1 % (0.0-8.0); Neut # (Auto) 4.1 th/mm3 (1.8-7.7); Platelet Count 734 th/mm3 (150-450); Red Blood Count 3.41 mil/mm3 (4.00-5.30); White Blood Count 5.9 th/mm3 (4.0-11.0)
[2018-05-24 07:39] LABS: Albumin 2.6 g/dL (3.4-5.0); Anion Gap 5 meq/L (5-15); Aspartate Aminotransferase 11 U/L (15-37); Blood Urea Nitrogen 24 mg/dL (7-18); Calcium 9.4 mg/dL (8.5-10.1); Carbon Dioxide 27.6 meq/L (21.0-32.0); Chloride 103 meq/L (98-107); Glomerular Filtration Rate 39 mL/min (>89); Glucose,Random 133 mg/dL (74-106); Magnesium 1.4 mg/dL (1.5-2.5); Potassium 4.9 meq/L (3.5-5.1); Sodium 136 meq/L (136-145)
[2018-05-24 07:40] LABS: Alanine Aminotransferase 15 U/L (10-53)
[2018-05-24 07:43] LABS: Alkaline Phosphatase 205 U/L (45-117); Total Protein 6.1 g/dL (6.4-8.2)
[2018-05-24] MEDS: Insulin NovoLOG Aspart Correctional Sugar Inj SQ SCH ×4 (08:33→20:46)
[2018-05-24] MEDS: Carvedilol 12.5 MG Tablet PO SCH ×2 (08:41→20:29)
[2018-05-24] MEDS ORDERED: HYDROmorphone PF Inj 2 MG/ML Vial ONE (10:28)
[2018-05-24] MEDS: Lipase/Protease/Amylase 24/76/120 DR Capsule PO SCH ×3 (10:48→18:16)
[2018-05-24] MEDS: Sodium Chloride 0.9% 2 ML Flush BID IV.FLUSH SCH ×2 (10:49→20:46)
[2018-05-24] MEDS ORDERED: *Heparin Central Flush 100 UNIT/ML 5 ML Vial PERIprocedural ONLY IV.FLUSH ONE (10:50)
[2018-05-24] MEDS ORDERED: Lidocaine 1%/Epinephrine 1:100,000 Inj 30 ML Vial ONE (10:50)
--- NOTE | 2018-05-24 11:49 | P.RAD ---
Post Procedure Progress Note - Procedure Information Procedure Date: 05/24/18 Supervising Radiologist: Joaquin Pollock MD Estimated blood loss (mL): 0 Anesthesia: Conscious Sedation - Plan of Activity Patient to Unit: [facility] Patient Condition: Good See PACS Report for procedural detail/treatment.
--- NOTE | 2018-05-24 11:52 | IR ---
EXAM DATE: 05/24/2018 11:45 AM EST AGE/SEX: 57 years / Female INDICATIONS: Patient presents with history of infection in need of Tunneled Central Venous Catheter placement for administration of antibiotics. CLINICAL DATA: This is the patient's initial encounter. Patient reports that signs and symptoms have been present for 1 week and indicates a pain score of 0/10. MEDICAL/SURGICAL HISTORY: . Diabetes, Dumping Syndrome, Femur Fracture, GERD, Gastroparesis, ES BL E Coli, Kidney Failure, Liver Function Failure . Hysterectomy, Splenectomy, Intestinal Surgery, C olectomy, Oopherectomy, Pancreatectomy, Kidney Transplant Recipient, Surgical procedure on lower extr emity in the past 6 months. COMPARISON: No prior exams available for comparison. FLUORO TIME (min): 0.06 IMAGE SERIES: 2 SEDATION TIME (min): 30 MEDICATION(S): 1 mg hydromorphone (Dilaudid) IV 1 mg midazolam (Versed) IV DEVICE(S): Right 6.6 fr Boviac Single Lumen Catheter . . PROCEDURE: 1. Ultrasound-guided puncture of the prescribed vein. 2. Fluoroscopic guidance. 3. Ward catheter placement 4. Conscious sedation with continuous EKG and oximetry monitoring. The risks, benefits and alternatives to the procedure were explained and verbal and written consent w as obtained. The site was prepped in sterile fashion. Full sterile technique was used, including ca p, mask, sterile gloves and gown and a large sterile sheet. Hand hygiene and 2% chlorhexidine Betadi ne was utilized per protocol for cutaneous antisepsis with appropriate dry time for site. Sterile ge l and sterile probe cover were utilized for ultrasound guidance. The skin and subcutaneous tissues w ere infiltrated with local anesthetic solution. With ultrasound and fluoroscopic guidance a dermatotomy was created in the supraclavicular region. A micropuncture set was used to access to the prescribed vein and serial dilatation was performed to a ccept a Ward catheter. A subcutaneous tunnel was created and in antegrade fashion the catheter wa s pulled through the tunnel, cut to the appropriate length and place through the sheath. The cathete r was locked with heparin and sutured in place. Conscious sedation was performed with the prescribed dosages and duration as above in the presence of an independent trained radiology nurse to assist in the monitoring of the patient. EKG and oximetry remained stable throughout the procedure. The patient tolerated the procedure well and there were no complications. The patient was sent to post anesthesia recovery in stable condition. CONCLUSION: 1. Uncomplicated Ward catheter placement as above. Electronically signed by: Joaquin Pollock MD 05/24/2018 11:51 AM EST
[2018-05-24] MEDS: Sod Chloride 0.9% Inj 1,000 ML IV.CONT SCH ×2 (12:17→23:33)
[2018-05-24] MEDS: Metoclopramide 10 MG Tablet PO SCH ×3 (12:31→18:16)
[2018-05-24] MEDS: Magnesium Oxide 400 MG Tablet PO SCH ×2 (12:31→20:34)
[2018-05-24] MEDS: Linezolid 600 MG Tablet PO SCH ×2 (12:31→20:39)
[2018-05-24] MEDS: predniSONE 10 MG Tablet PO SCH (12:31)
[2018-05-24] MEDS: Insulin Detemir Inj 1,000 UNIT/10 ML Vial SQ SCH ×2 (12:41→20:46)
[2018-05-24] MEDS: Morphine Sulfate Inj 2 MG/ML Vial IV.PUSH PRN ×2 (15:56→20:30)
[2018-05-24 15:59] LABS: Baso # (Auto) 0.1 th/mm3 (0.0-0.2); Baso % (Auto) 0.9 % (0.0-2.0); Eos # (Auto) 0.1 th/mm3 (0.0-0.4); Eos % (Auto) 2.5 % (0.0-4.0); Hemoglobin 10.8 gm/dL (11.6-15.3); Lymph # (Auto) 0.9 th/mm3 (1.0-4.8); Lymph % (Auto) 15.8 % (9.0-44.0); Mean Corpuscular HGB Conc 32.7 % (32.0-36.0); Mean Corpuscular Hemoglobin 28.8 pg (27.0-34.0); Mean Platelet Volume 9.4 fL (7.0-11.0); Mono # (Auto) 0.6 th/mm3 (0.0-0.9); Mono % (Auto) 9.6 % (0.0-8.0); Neut # (Auto) 4.2 th/mm3 (1.8-7.7); Neut % (Auto) 71.2 % (16.0-70.0); Platelet Count 779 th/mm3 (150-450); Red Blood Count 3.75 mil/mm3 (4.00-5.30); Red Cell Distribution Width 17.8 % (11.6-17.2); White Blood Count 5.9 th/mm3 (4.0-11.0)
[2018-05-24] MEDS: Enoxaparin Inj 60 MG/0.6 ML Syringe SQ SCH ×2 (16:07→20:57)
--- NOTE | 2018-05-24 16:30 | P.PNONC ---
Subjective Interval history: Patient lying in bed, awake and alert in no acute distress. She is status post Odell catheter placement and reports soreness to the area. Her nurse is at the bedside giving her pain medications. She reports some improvement in her nausea and abdominal pain. Objective Vital Signs/Intake & Output: Vital Signs 05/23/18 20:00 05/24/18 02:29 05/24/18 04:00 Temperature 98.3 F 97.8 F Pulse Rate 63 56 L Respiratory Rate 16 18 18 Blood Pressure 193/87 H 170/78 H Pulse Oximetry 97 98 05/24/18 11:30 05/24/18 11:45 Temperature 98.5 F Pulse Rate 97 H 66 Respiratory Rate 18 16 Blood Pressure 188/95 H 186/97 H Pulse Oximetry 97 96 Intake & Output 05/23/18 05/24/18 05/24/18 18:59 06:59 18:59 Intake Total 1200 / 1200 100 / 100 Balance 1200 / 1200 100 / 100 Weight 59.8 kg Intake: IV 100 / 100 Primaxin Inj 500 MG In NS Inj 100 / 100 100 ML @ 200 mls/hr IV.SIG Q8H [facility] Rx#:[id number] Oral 1200 / 1200 Other: # Voids 4 1 Date of Last Bowel Movement 05/23/18 # Bowel Movements 1 Result Diagrams: 05/25/18 05:16 05/25/18 05:16 Laboratory Results: Laboratory Results - last 24 hr 05/23/18 05/23/18 05/24/18 17:51 21:49 06:25 WBC 5.9 RBC 3.41 L Hgb 9.8 L Hct 29.0 L MCV 85.0 MCH 28.7 MCHC 33.7 RDW 17.0 Plt Count 734 H MPV 9.0 Neut % (Auto) 70.0 Lymph % (Auto) 16.6 Gove % (Auto) 11.1 H Eos % (Auto) 1.8 Baso % (Auto) 0.5 Neut # (Auto) 4.1 Lymph # (Auto) 1.0 Gove # (Auto) 0.7 Eos # (Auto) 0.1 Baso # (Auto) 0.0 WBC Differential . Differential Comment Auto diff final Sodium Potassium Chloride Carbon Dioxide Anion Gap BUN Creatinine Estimated GFR POC Glucose 228 H 312 H Random Glucose Calcium Magnesium Total Bilirubin AST ALT Alkaline Phosphatase Total Protein Albumin 05/24/18 05/24/18 05/24/18 06:25 08:07 12:29 WBC RBC Hgb Hct MCV MCH MCHC RDW Plt Count MPV Neut % (Auto) Lymph % (Auto) Gove % (Auto) Eos % (Auto) Baso % (Auto) Neut # (Auto) Lymph # (Auto) Gove # (Auto) Eos # (Auto) Baso # (Auto) WBC Differential Differential Comment Sodium 136 Potassium 4.9 Chloride 103 Carbon Dioxide 27.6 Anion Gap 5 BUN 24 H Creatinine 1.38 H Estimated GFR 39 L POC Glucose 179 H 329 H Random Glucose 133 H Calcium 9.4 Magnesium 1.4 L Total Bilirubin 0.1 L AST 11 L ALT 15 Alkaline Phosphatase 205 H Total Protein 6.1 L Albumin 2.6 L 05/24/18 14:37 WBC 5.9 RBC 3.75 L Hgb 10.8 L Hct 33.0 L MCV 88.0 MCH 28.8 MCHC 32.7 RDW 17.8 H Plt Count 779 H MPV 9.4 Neut % (Auto) 71.2 H Lymph % (Auto) 15.8 Gove % (Auto) 9.6 H Eos % (Auto) 2.5 Baso % (Auto) 0.9 Neut # (Auto) 4.2 Lymph # (Auto) 0.9 L Gove # (Auto) 0.6 Eos # (Auto) 0.1 Baso # (Auto) 0.1 WBC Differential . Differential Comment Auto diff final Sodium Potassium Chloride Carbon Dioxide Anion Gap BUN Creatinine Estimated GFR POC Glucose Random Glucose Calcium Magnesium Total Bilirubin AST ALT Alkaline Phosphatase Total Protein Albumin Culture Results: Microbiology 05/23/18 12:00 Urine Culture - Preliminary Catheterized Urine No growth in 24 hours 05/21/18 06:11 Aerobic Blood Culture - Preliminary Blood - Peripheral No growth in 3 days Anaerobic Blood Culture - Preliminary No growth in 3 days 05/21/18 06:05 Aerobic Blood Culture - Preliminary Blood - Peripheral No growth in 3 days Anaerobic Blood Culture - Preliminary No growth in 3 days 05/17/18 01:30 Urine Culture - Preliminary Clean Catch Urine Escherichia coli ESBL positive Enterococcus faecium 05/17/18 01:15 Aerobic Blood Culture - Final Blood - Peripheral No growth in 5 days Anaerobic Blood Culture - Final No growth in 5 days 05/17/18 01:19 Aerobic Blood Culture - Final Blood - Peripheral No growth in 5 days Anaerobic Blood Culture - Final No growth in 5 days Imaging Studies: Impressions Odell Line Insertion 05/24/18 00:00 CONCLUSION: 1. Uncomplicated Odell catheter placement as above. Medications: Active Medications Generic Name Dose Route Start Last Admin Trade Name Freq PRN Reason Stop Dose Admin Acetaminophen 650 mg 05/17/18 03:58 05/21/18 04:43 Tylenol PO 650 mg Q4H PRN Administration Temp > 100.4 Hydrocodone Bitart/Acetaminophen 1 tab 05/22/18 17:50 05/24/18 12:41 [place] 10/325 PO 1 tab Q4H PRN Administration pain 6-10 Lipase/Protease/Amylase 3 cap 05/18/18 18:00 05/24/18 12:[address] 24/76/120 PO 3 cap TID [facility] Administration Carvedilol 12.5 mg 05/18/18 21:00 05/24/18 08:41 Coreg PO 12.5 mg BID RONALD Administration Enoxaparin Sodium 70 mg 05/23/18 21:00 05/23/18 21:53 Lovenox Inj SQ 70 mg Q12HR [facility] Administration Enoxaparin Sodium 60 mg 05/24/18 09:00 05/24/18 16:07 Lovenox Inj SQ Not Given Q12HR [facility] Ergocalciferol 50,000 unit 05/18/18 17:00 05/23/18 17:51 Vitamin D2 PO 50,000 unit MOWEFR [facility] Administration Sodium Chloride 1,000 mls @ 70 mls/hr 05/17/18 04:00 05/24/18 12:17 Ns Inj IV.CONT 70 mls/hr .[id number] [facility] Administration Imipenem/Cilastatin Sodium 500 100 mls @ 200 mls/hr 05/22/18 10:00 05/24/18 13:08 mg/ Sodium Chloride IV.SIG Infused Q8H [facility] Infusion Insulin Aspart 0 unit 05/22/18 08:00 05/24/18 12:41 Novolog Insulin Correctional Sugar Inj SQ 10 unit ACHS [facility] Administration Protocol Insulin Detemir 10 unit 05/21/18 17:28 05/24/18 12:41 Levemir Inj SQ 10 unit BID [facility] Administration Linezolid 600 mg 05/23/18 21:00 05/24/18 12:31 Zyvox PO 600 mg Q12HR [facility] Administration Loratadine 10 mg 05/18/18 11:00 05/18/18 10:38 Claritin PO 10 mg DAILY PRN Administration congestion Magnesium Oxide 400 mg 05/23/18 09:00 05/24/18 12:31 Mag-Ox PO 400 mg BID R[facility]AL[facility] Administration Metoclopramide HCl 5 mg 05/18/18 20:25 05/19/18 08:49 Reglan Inj IV.PUSH 5 mg Q8H PRN Administration gastroporesis Protocol Metoclopramide HCl 10 mg 05/19/18 18:00 05/24/18 12:44 Reglan PO Not Given TID [facility] Morphine Sulfate 2 mg 05/17/18 09:35 05/24/18 15:56 Morphine Inj IV.PUSH 2 mg Q4H PRN Administration breakth pain/unable PO Ondansetron HCl 4 mg 05/17/18 03:58 05/24/18 12:59 Zofran Inj IV.PUSH 4 mg Q6H PRN Administration NAUSEA OR VOMITING Ondansetron HCl 4 mg 05/22/18 20:46 05/24/18 04:38 Zofran Odt PO 4 mg Q6H PRN Administration nausea/vomiting - if IV out Pantoprazole Sodium 40 mg 05/19/18 09:00 05/24/18 12:31 Protonix PO 40 mg DAILY [facility] Administration Prednisone 10 mg 05/17/18 12:00 05/24/18 12:31 Deltasone PO 10 mg DAILY [facility] Administration Sodium Chloride 2 ml 05/17/18 09:00 05/24/18 10:49 Ns Flush IV.FLUSH Not Given BID RONALD Tacrolimus 4 mg 05/17/18 12:00 05/24/18 16:11 Prograf PO 4 mg BID R[facility] Administration Objective Remarks: GENERAL: Well-nourished, well-developed female patient, in no acute distress. SKIN: Warm and dry. Odell cath to right subclavian. HEAD: Normocephalic. EYES: No scleral icterus. No injection or drainage. NECK: Supple, trachea midline. CARDIOVASCULAR: Regular rate and rhythm without murmurs. RESPIRATORY: Breath sounds equal bilaterally. No accessory muscle use. GASTROINTESTINAL: Abdomen soft, tender to right, nondistended. EXTREMITIES: No cyanosis, or edema. MUSCULOSKELETAL: Adequate muscle tone. NEUROLOGICAL: No obvious focal deficit. Awake, alert, and oriented x3. PSYCHIATRIC: Appropriate mood and affect; insight and judgment normal. Assessment/Plan - Plan Plan: 1. Venous thromboembolism, continue Lovenox 1 mg/kg daily and aspirin 81 mg daily. 2. Thrombocytosis, reactive. Continue to monitor. 3. History of renal transplant, management per nephrology team. 4. Recurrent urinary tract infection, on antibiotics, management per infectious disease. - Attending Statement The exam, history, and the medical decision-making described in the above note were completed with the assistance of the mid-level provider. I reviewed and agree with the findings presented. I attest that I had a [id number] encounter with the patient on the same day, and personally performed and documented my assessment and findings in the medical record. 57 yoF s/p renal transplant. Also with significant GI disease including gastroparesis and dumping syndrome admitted with UTI. s/p odell placement for usp antibiotics. Nephrology team following. VTE. Will continue with lovenox 1 mg/kg BID. Given reactive thrombocytosis will add on antiplatelet agent. Discussed risks/benefits of anticoagulation with patient. She voiced understanding.
--- NOTE | 2018-05-24 19:11 | P.PNNP ---
Subjective Interval history: 11-year-old with history of recurrent UTI, post kidney transplant, is being treated for DVT in left leg and right arm Complains of diarrhea Physical Exam Vital signs: Vital Signs 05/23/18 20:00 05/24/18 02:29 05/24/18 04:00 Temperature 98.3 F 97.8 F Pulse Rate 63 56 L Respiratory Rate 16 18 18 Blood Pressure 193/87 H 170/78 H Pulse Oximetry 97 98 05/24/18 11:30 05/24/18 11:45 05/24/18 16:04 Temperature 98.5 F 97.6 F Pulse Rate 97 H 66 65 Respiratory Rate 18 16 17 Blood Pressure 188/95 H 186/97 H 149/72 H Pulse Oximetry 97 96 98 Intake & Output 05/24/18 05/24/18 05/25/18 06:59 18:59 06:59 Intake Total 1700 / 1700 Balance 1700 / 1700 Weight 59.8 kg Intake: IV 100 / 100 Primaxin Inj 500 MG In NS Inj 100 / 100 100 ML @ 200 mls/hr IV.SIG Q8H [facility] Rx#:[id number] Oral 1600 / 1600 Other: # Voids 1 5 Date of Last Bowel Movement 05/23/18 # Bowel Movements 1 Narrative: Gen. appearance: The patient is very pleasant 57 yo female, appears in nad. Respiratory: Lungs clear to auscultation bilaterally. No wheezes or rhonchi. Abdomen: Soft, diffusely tender to palpation, nondistended. No peritoneal signs. Musculoskeletal: No gross deformities. No edema. Skin: No obvious rashes or erythema. Neuro: Sensory and motor grossly intact. Cranial nerves II through XII grossly intact. Assessment and Plan - Assessment (1) Renal transplant recipient Code(s): Z94.0 - Kidney transplant status Status: Acute (2) Fever Code(s): R50.9 - Fever, unspecified Status: Acute Qualifiers: Fever type: unspecified Qualified Code(s): R50.9 - Fever, unspecified (3) Abdominal pain Code(s): R10.9 - Unspecified abdominal pain Status: Acute (4) Acute renal failure Code(s): N17.9 - Acute kidney failure, unspecified Status: Acute (5) Gastroparesis Code(s): K31.84 - Gastroparesis Status: Acute (6) Nausea Code(s): R11.0 - Nausea Status: Acute (7) History of intestinal surgery Code(s): Z98.890 - Other specified postprocedural states Status: Acute (8) DM (diabetes mellitus) Code(s): E11.9 - Type 2 diabetes mellitus without complications Status: Acute Qualifiers: Diabetes mellitus type: type 1 (9) Renal insufficiency Code(s): N28.9 - Disorder of kidney and ureter, unspecified Status: Acute - Plan on prednisone 10 mg p.o. daily and tacrolimus 4 mg twice daily, tacrolimus 13.3 today, she has fever now and is going to require infectious disease consult GI following Patient has UTI and growing VRE and ESBL E. coli antibiotic imipenem and Zyvox ID consult appreciated Tacrolimus levels again drawn late Ward catheter before antibiotics can be arranged she is okay to be discharged from nephrology point of DVT treated with Lovenox and aspirin Continue with tacrolimus and prednisone
--- NOTE | 2018-05-24 19:30 | P.PN ---
Subjective Interval history: The patient was seen after Ward placement. Patient says she has more pain at the site of central line placement. Says she had 4 bowel movements today all diarrhea, she did not eat much today. Still with nausea no vomiting. No fever or chills overnight. She has been off antibiotics since yesterday as no line placement. No shortness of breath or chest pain. She is not tachycardic at this time. Physical Exam Vital signs: Vital Signs 05/23/18 20:00 05/24/18 02:29 05/24/18 04:00 Temperature 98.3 F 97.8 F Pulse Rate 63 56 L Respiratory Rate 16 18 18 Blood Pressure 193/87 H 170/78 H Pulse Oximetry 97 98 05/24/18 11:30 05/24/18 11:45 05/24/18 16:04 Temperature 98.5 F 97.6 F Pulse Rate 97 H 66 65 Respiratory Rate 18 16 17 Blood Pressure 188/95 H 186/97 H 149/72 H Pulse Oximetry 97 96 98 Intake & Output 05/24/18 05/24/18 05/25/18 06:59 18:59 06:59 Intake Total 1700 / 1700 Balance 1700 / 1700 Weight 59.8 kg Intake: IV 100 / 100 Primaxin Inj 500 MG In NS Inj 100 / 100 100 ML @ 200 mls/hr IV.SIG Q8H [facility] Rx#:[id number] Oral 1600 / 1600 Other: # Voids 1 5 Date of Last Bowel Movement 05/23/18 # Bowel Movements 1 Narrative: Gen. appearance: The patient is very pleasant 57 yo female, appears in nad. Respiratory: Lungs clear to auscultation bilaterally. No wheezes or rhonchi. Right upper /neck Ward some pain, no bleeding. Abdomen: Mid abdominal previous surgical scar. Soft, diffusely tender to palpation, nondistended. No peritoneal signs. Musculoskeletal: No gross deformities. No edema. Skin: No obvious rashes or erythema. Neuro: Sensory and motor grossly intact. Cranial nerves II through XII grossly intact. Results - Labs CBC & Chem 7: 05/24/18 14:37 05/24/18 06:25 Laboratory Results - last 24 hr 05/23/18 05/24/18 05/24/18 21:49 06:25 06:25 WBC 5.9 RBC 3.41 L Hgb 9.8 L Hct 29.0 L MCV 85.0 MCH 28.7 MCHC 33.7 RDW 17.0 Plt Count 734 H MPV 9.0 Neut % (Auto) 70.0 Lymph % (Auto) 16.6 Cannon % (Auto) 11.1 H Eos % (Auto) 1.8 Baso % (Auto) 0.5 Neut # (Auto) 4.1 Lymph # (Auto) 1.0 Cannon # (Auto) 0.7 Eos # (Auto) 0.1 Baso # (Auto) 0.0 WBC Differential . Differential Comment Auto diff final Sodium 136 Potassium 4.9 Chloride 103 Carbon Dioxide 27.6 Anion Gap 5 BUN 24 H Creatinine 1.38 H Estimated GFR 39 L POC Glucose 312 H Random Glucose 133 H Calcium 9.4 Magnesium 1.4 L Total Bilirubin 0.1 L AST 11 L ALT 15 Alkaline Phosphatase 205 H Total Protein 6.1 L Albumin 2.6 L 05/24/18 05/24/18 05/24/18 08:07 12:29 14:37 WBC 5.9 RBC 3.75 L Hgb 10.8 L Hct 33.0 L MCV 88.0 MCH 28.8 MCHC 32.7 RDW 17.8 H Plt Count 779 H MPV 9.4 Neut % (Auto) 71.2 H Lymph % (Auto) 15.8 Cannon % (Auto) 9.6 H Eos % (Auto) 2.5 Baso % (Auto) 0.9 Neut # (Auto) 4.2 Lymph # (Auto) 0.9 L Cannon # (Auto) 0.6 Eos # (Auto) 0.1 Baso # (Auto) 0.1 WBC Differential . Differential Comment Auto diff final Sodium Potassium Chloride Carbon Dioxide Anion Gap BUN Creatinine Estimated GFR POC Glucose 179 H 329 H Random Glucose Calcium Magnesium Total Bilirubin AST ALT Alkaline Phosphatase Total Protein Albumin Microbiology 05/23/18 12:00 Catheterized Urine Urine Culture - Preliminary No growth in 24 hours 05/21/18 06:11 Blood - Peripheral Aerobic Blood Culture - Preliminary No growth in 3 days 05/21/18 06:11 Blood - Peripheral Anaerobic Blood Culture - Preliminary No growth in 3 days 05/21/18 06:05 Blood - Peripheral Aerobic Blood Culture - Preliminary No growth in 3 days 05/21/18 06:05 Blood - Peripheral Anaerobic Blood Culture - Preliminary No growth in 3 days 05/17/18 01:30 Clean Catch Urine Urine Culture - Preliminary Escherichia coli ESBL positive Enterococcus faecium - Imaging Impressions Ward Line Insertion 05/24/18 00:00 CONCLUSION: 1. Uncomplicated Ward catheter placement as above. - Procedures none Assessment and Plan - Plan Fever/leukocytosis Patient with reported fever to 102 at home and with WBCs 15.3 on admission History of ESBL UTI status post Invanz DC'd 1 week [employer] Chest x-ray negative for acute process Urine culture with group D enterococcus and gram neg rafia - E coli ESBL. Received daptomycin and ceftriaxone. Change to PO minocycline based on ID and sensitivities Blood cultures pending Follow culture results, initiate antibiotics if indicated and consider infectious disease consult if fevers/leukocytosis persist Patient has UTI and growing VRE and ESBL E. coli Started minocycline PO however patient noted with fevers 101 on 05/21/18. Blood cultures resent . Starten back on IV abx Imipenem and Zyvox and ID consulted. Continue with tacrolimus and prednisone per nephro. Emesis/regurgitation, improving Patient reports emptying of her stomach contents x2 earlier today Seen by gastroenterology during previous hospitalization, started rifaximin, continue Reglan as patient with history of gastroparesis Last EGD/colonoscopy on 04/05/18 showed food residue in gastric body with normal duodenal mucosa. Colonoscopy revealed internal/external hemorrhoids Patient with follow-up gastroenterology at [facility] appointment on 06/01/18, continue home medications (once reconciled) and follow-up as outpatient Repeat gastroenterology consult if symptoms persist consider azithromycin Patient has refused TPN Consult her GI doctor Continue Reglan 10 mg 3 times daily scheduled as per patient she is taking before meals. Diabetes mellitus Holding long-acting insulin as patient reports she is not tolerating p.o. Sliding-scale insulin Monitor blood glucose Upper and lower DVTs also with h/o DVT Restarted home Lovenox however repeat doppler Ultrasound shows patient has new DVT started on therapeutic Lovenox and Dr. Wallace her oncology hematology Dr. is consulted and ff Abdominal pain with fever History of GERD and gastroparesis H/o extensive abd surgeries Extensive work up as OP With symptoms despite taking Dexilant to control reflux. 05/17/2018 CT abdomen and pelvis reveal the followin. Extensive postsurgical changes which include a gastrojejunostomy, pancreatectomy, choledochojejunostomy, splenectomy, cholecystectomy and hysterectomy. 2. Right pelvic renal transplant. 3. No evidence of intra-abdominal abscess, free fluid or free air. 4. No evidence of suspicious mass or developing lymphadenopathy. 04/05/2018 pathology surgical specimen report-Colon Biopsy-Sections reveal two fragments of colonic mucosa. One shows architectural distortion with irregular gland spacing, paneth cell metaplasia and a significant eosinophilia and neutrophilic infiltrate. These findings suggest an active chronic colitis and raise a differential diagnosis including inflammatory bowel disease and a chronic infectious colitis. No glandular dysplasia is noted. 04/05/2018 EGD findings: Class A esophagitis, approximately 400 cc of fluid retained in the stomach. Gastro jejunostomy identified. Small bowel mucosa normal. Food residue in the gastric body. Normal duodenal mucosa. Retroflex views revealed no abnormalities. 05/21/2018 upper GI and small bowel series:No obstruction is seen. Status post resection of much of the colon. Contrast is seen within the rectum. Pneumobilia. On later images contrast is seen to extend into the biliary system. Persistent hypomagnesemia: Replaced. Continue to monitor and replace as indicated Received 2gm of mag sulfate IV on 05/22 With repeat mag still low on 05/23. Ordered additional 4gm IV mag sulfate. Start daily mag ox supplement Monitor and replace as need 05/24/18 Ward placement Restart IV antibiotics History of polycystic kidney disease status post renal transplant Patient previously evaluated by transplant surgery on previous admission Continue Prograf and prednisone Patient's activity manager, Dr. Hughes consulted, and ff appreciate recommendations Thrombocytosis Status post bone marrow biopsy which was nonspecific Platelet count 609 on admission FEN Diabetic diet NS at 70 cc/hr Electrolytes: Monitor and replete as needed Lovenox DC plan : DC when improved and cleared by consultants. Patient needs to follow up at [facility] after DC Patient failed PO antibiotics, had fevers and was started on IV antibiotics , ID consulted. Repeat blood cx so far NTD. Repeat urine cultures Patient needs a Ward for IV abx. Has multiple DVTs lower and upper extremities. POC US consulted for peripheral access for meds administration by IV. Needs a Ward when cleared by ID specialist to have one. Started on full dose lovenox and Dr Wallace is consulted as wel, her hem/onc Dr Discussed with the patient, nurse [place] placement on 05/24/18
[2018-05-25] MEDS: Sod Chloride 0.9% Inj 1,000 ML IV.CONT SCH ×3 (03:06→18:18)
[2018-05-25] MEDS: Morphine Sulfate Inj 2 MG/ML Vial IV.PUSH PRN ×5 (04:42→22:06)
[2018-05-25] MEDS: Acetaminophen 325 MG Tablet PO PRN (04:52)
[2018-05-25 05:56] LABS: Baso % (Auto) 0.3 % (0.0-2.0); Eos # (Auto) 0.1 th/mm3 (0.0-0.4); Hemoglobin 9.4 gm/dL (11.6-15.3); Lymph # (Auto) 0.7 th/mm3 (1.0-4.8); Lymph % (Auto) 7.3 % (9.0-44.0); Mean Corpuscular HGB Conc 33.5 % (32.0-36.0); Mean Corpuscular Hemoglobin 28.3 pg (27.0-34.0); Mean Corpuscular Volume 84.4 fL (80.0-100.0); Mean Platelet Volume 8.6 fL (7.0-11.0); Mono # (Auto) 0.7 th/mm3 (0.0-0.9); Mono % (Auto) 7.1 % (0.0-8.0); Neut # (Auto) 7.8 th/mm3 (1.8-7.7); Neut % (Auto) 84.3 % (16.0-70.0); Platelet Count 747 th/mm3 (150-450); Red Blood Count 3.32 mil/mm3 (4.00-5.30); Red Cell Distribution Width 17.2 % (11.6-17.2); White Blood Count 9.3 th/mm3 (4.0-11.0)
[2018-05-25 06:16] LABS: Albumin 2.6 g/dL (3.4-5.0); Anion Gap 4 meq/L (5-15); Aspartate Aminotransferase 15 U/L (15-37); Blood Urea Nitrogen 21 mg/dL (7-18); Carbon Dioxide 28.9 meq/L (21.0-32.0); Chloride 102 meq/L (98-107); Glomerular Filtration Rate 37 mL/min (>89); Glucose,Random 219 mg/dL (74-106); Magnesium 1.7 mg/dL (1.5-2.5); Sodium 135 meq/L (136-145)
[2018-05-25 06:17] LABS: Alanine Aminotransferase 15 U/L (10-53)
[2018-05-25 06:19] LABS: Alkaline Phosphatase 199 U/L (45-117); Total Protein 6.2 g/dL (6.4-8.2)
[2018-05-25] MEDS: Lipase/Protease/Amylase 24/76/120 DR Capsule PO SCH ×3 (08:37→18:01)
[2018-05-25] MEDS: Linezolid 600 MG Tablet PO SCH ×2 (08:37→21:59)
[2018-05-25] MEDS: Carvedilol 12.5 MG Tablet PO SCH ×2 (08:37→21:59)
[2018-05-25] MEDS: predniSONE 10 MG Tablet PO SCH (08:37)
[2018-05-25] MEDS: Magnesium Oxide 400 MG Tablet PO SCH ×2 (08:37→21:59)
[2018-05-25] MEDS: Enoxaparin Inj 60 MG/0.6 ML Syringe SQ SCH ×2 (08:37→22:03)
[2018-05-25] MEDS: Metoclopramide 10 MG Tablet PO SCH ×3 (08:38→18:01)
[2018-05-25] MEDS: Sodium Chloride 0.9% 2 ML Flush BID IV.FLUSH SCH ×2 (08:41→22:03)
[2018-05-25] MEDS: Insulin NovoLOG Aspart Correctional Sugar Inj SQ SCH ×4 (08:41→22:05)
[2018-05-25] MEDS: Insulin Detemir Inj 1,000 UNIT/10 ML Vial SQ SCH ×2 (08:41→22:02)
--- NOTE | 2018-05-25 11:20 | P.PNID ---
Subjective Remarks: 57-year-old white female who is status post renal transplantation. The patient has had recurrent urinary tract infection. She was recently treated for UTI with ertapenem for resistant bacteria. She received 2 weeks of antibiotics and she was readmitted again because of fever. The course of antibiotic with ertapenem completed on 05/12/2018. The patient was evaluated and cultures of the urine were sent. The urine culture came back with extended-spectrum beta- lactamase Escherichia coli, which is resistant to ertapenem and also VRE. Prior to the ertapenem she was on meropenem. The VRE is sensitive to Zyvox. The ESBL Escherichia coli is sensitive to imipenem. Notes reviewed Feels much better NO N/V Repeat UC negative Temps ok Blood cultures taken on admission have no growth. Has new Ward cath placed yesterday Her E coli ESBL is getting more resistant On RX for multiple DVT Antibiotics: Primaxin Zyvox Past Medical History: Diabetes mellitus, gastroesophageal reflux disease, gastroparesis dumping syndrome, chronic kidney disease, liver disease, recurrent urinary tract infection, history of femur fracture, history of splenectomy, history of colectomy, history of oophorectomy, history of pancreatectomy, renal transplant 6 months ago. Allergies/Adverse Reactions: Allergies metronidazole [From Flagyl] Allergy (Mild, Verified 04/22/18 16:51) Swelling of the Eye oxycodone Allergy (Mild, Verified 04/22/18 16:52) Itching, Generalized oxytetracycline [From Terramycin] Allergy (Mild, Verified 03/27/18 18:27) Hives fentanyl Allergy (Verified 04/05/18 17:07) Edema filgrastim [From Neupogen] Allergy (Verified 04/05/18 10:48) Anaphylaxis Objective Vital Signs 05/24/18 11:30 05/24/18 11:45 05/24/18 16:04 Temperature 98.5 F 97.6 F Pulse Rate 97 H 66 65 Respiratory Rate 18 16 17 Blood Pressure 188/95 H 186/97 H 149/72 H Pulse Oximetry 97 96 98 05/24/18 20:00 05/25/18 00:00 05/25/18 04:00 Temperature 98.2 F 98 F 98.1 F Pulse Rate 69 65 64 Respiratory Rate 16 14 15 Blood Pressure 139/75 141/67 H 156/73 H Pulse Oximetry 94 L 96 95 05/25/18 08:00 05/25/18 08:21 Temperature 97.9 F 97.9 F Pulse Rate 61 61 Respiratory Rate 16 16 Blood Pressure 151/87 H 151/87 H Pulse Oximetry 96 96 Intake & Output 05/24/18 05/25/18 05/25/18 18:59 06:59 18:59 Intake Total 1700 / 1700 1920 / 1920 100 / 100 Balance 1700 / 1700 1920 / 1920 100 / 100 Weight 60.2 kg Intake: IV 100 / 100 1200 / 1200 100 / 100 NS Inj 1,000 ML @ 70 mls/hr IV. 1000 / 1000 CONT .[id number] [facility] Rx#:[id number] Primaxin Inj 500 MG In NS Inj 100 / 100 200 / 200 100 / 100 100 ML @ 200 mls/hr IV.SIG Q8H [facility] Rx#:[id number] Oral 1600 / 1600 720 / 720 Other: # Voids 5 5 Date of Last Bowel Movement 05/24/18 # Bowel Movements 1 2 05/21/18 06:11 Blood - Peripheral Aerobic Blood Culture - Preliminary No growth in 4 days 05/21/18 06:11 Blood - Peripheral Anaerobic Blood Culture - Preliminary No growth in 4 days 05/21/18 06:05 Blood - Peripheral Aerobic Blood Culture - Preliminary No growth in 4 days 05/21/18 06:05 Blood - Peripheral Anaerobic Blood Culture - Preliminary No growth in 4 days 05/23/18 12:00 Catheterized Urine Urine Culture - Final No growth in 48 hours 05/17/18 01:30 Clean Catch Urine Urine Culture - Preliminary Escherichia coli ESBL positive Enterococcus faecium 05/17/18 01:15 Blood - Peripheral Aerobic Blood Culture - Final No growth in 5 days 05/17/18 01:15 Blood - Peripheral Anaerobic Blood Culture - Final No growth in 5 days 05/17/18 01:19 Blood - Peripheral Aerobic Blood Culture - Final No growth in 5 days 05/17/18 01:19 Blood - Peripheral Anaerobic Blood Culture - Final No growth in 5 days Lab - Hematology Results 05/24/18 05/24/18 05/25/18 06:25 14:37 05:16 WBC 5.9 5.9 9.3 D RBC 3.41 L 3.75 L 3.32 L Hgb 9.8 L 10.8 L 9.4 L Hct 29.0 L 33.0 L 28.0 L MCV 85.0 88.0 84.4 D MCH 28.7 28.8 28.3 MCHC 33.7 32.7 33.5 RDW 17.0 17.8 H 17.2 Plt Count 734 H 779 H 747 H MPV 9.0 9.4 8.6 Neut % (Auto) 70.0 71.2 H 84.3 H Lymph % (Auto) 16.6 15.8 7.3 L [place] % (Auto) 11.1 H 9.6 H 7.1 Eos % (Auto) 1.8 2.5 1.0 Baso % (Auto) 0.5 0.9 0.3 Neut # (Auto) 4.1 4.2 7.8 H Lymph # (Auto) 1.0 0.9 L 0.7 L [place] # (Auto) 0.7 0.6 0.7 Eos # (Auto) 0.1 0.1 0.1 Baso # (Auto) 0.0 0.1 0.0 WBC Differential . . . Differential Comment Auto diff final Auto diff final Auto diff final Lab - Chemistry Results 05/23/18 05/23/18 05/23/18 12:45 17:51 21:49 Sodium Potassium Chloride Carbon Dioxide Anion Gap BUN Creatinine Estimated GFR POC Glucose 150 H 228 H 312 H Random Glucose Calcium Magnesium Total Bilirubin AST ALT Alkaline Phosphatase Total Protein Albumin 05/24/18 05/24/18 05/24/18 06:25 08:07 12:29 Sodium 136 Potassium 4.9 Chloride 103 Carbon Dioxide 27.6 Anion Gap 5 BUN 24 H Creatinine 1.38 H Estimated GFR 39 L POC Glucose 179 H 329 H Random Glucose 133 H Calcium 9.4 Magnesium 1.4 L Total Bilirubin 0.1 L AST 11 L ALT 15 Alkaline Phosphatase 205 H Total Protein 6.1 L Albumin 2.6 L 05/25/18 05/25/18 05:16 07:52 Sodium 135 L Potassium 5.0 Chloride 102 Carbon Dioxide 28.9 Anion Gap 4 L BUN 21 H Creatinine 1.45 H Estimated GFR 37 L POC Glucose 251 H Random Glucose 219 H Calcium 9.0 Magnesium 1.7 Total Bilirubin 0.1 L AST 15 ALT 15 Alkaline Phosphatase 199 H Total Protein 6.2 L Albumin 2.6 L Imaging: ITS Impressions Abdomen/Pelvis CT 05/17/18 00:00 CONCLUSION: 1. Extensive postsurgical changes which include a gastrojejunostomy, pancreatectomy, choledochojejunostomy, splenectomy, cholecystectomy and hysterectomy. 2. Right pelvic renal transplant. 3. No evidence of intra-abdominal abscess, free fluid or free air. 4. No evidence of suspicious mass or developing lymphadenopathy. Chest X-Ray 05/21/18 00:00 CONCLUSION: No active disease. Minimal linear scarring left lung base. Upper GI and Small Bowel X-Ray 05/21/18 00:00 CONCLUSION: No obstruction is seen. Status post resection of much of the colon. Contrast is seen within the rectum. Pneumobilia. On later images contrast is seen to extend into the biliary system. Venous Doppler Study 05/23/18 00:00 CONCLUSION: 1. DVT of the left lower extremity. 2. No DVT identified on the right. Ward Line Insertion 05/24/18 00:00 CONCLUSION: 1. Uncomplicated Ward catheter placement as above. Physical Exam: GENERAL: No acute distress. Awakeand alert SKIN: No rash HEENT: The head is atraumatic. Extraocular movements grossly intact. Pupils reactive to light. No icterus. Oropharynx moist mucosa without lesions. NECK: Supple without adenopathy. LUNGS: Clear breath sounds. HEART: Regular S1, S2, without murmurs. ABDOMEN: Bowel sounds present. Soft, nontender. Multiple scars C/S surgical history EXTREMITIES: No clubbing, cyanosis, or edema. Tiny cord at RUE above elbow. NEUROLOGIC: No gross focal findings. PSYCHIATRIC: Calm and cooperative. Assessment and Plan - Plan IMPRESSION: 1. Recurrent urinary tract infection. Patient with Escherichia coli, ESBL, which is now resistant to ertapenem. Previous treatment with ertapenem. The patient also has Enterococcus faecium in addition to the ESBL E. coli. 2. Renal transplant status. 3. Fever and chills. 4. Leukocytosis. Improved. RECOMMENDATIONS: I have asked micro to run suscepotibility testing on Zerbaxa and Avycaz - if ok, switch to Zerbaxa and give Abx until Jun 06 - labs every Wednesday - CBC, creatinine D/W patient need to get urology evaluation for her recurrent UTI Once final C/S available, I will arrange for D/C and complete Rx at home Explained plan to the patient
[2018-05-25] MEDS ORDERED: Magnesium Sulfate Inj 2 GM in Sodium Chlor 0.9% Inj 96 ML IV.SIG ONE (15:00)
--- NOTE | 2018-05-25 15:01 | P.PNIM ---
Subjective Interval history: patient complains of some abdominal pain. She also has some pain around the Ward site. Physical Exam Vital signs: Vital Signs 05/24/18 16:04 05/24/18 20:00 05/25/18 00:00 Temperature 97.6 F 98.2 F 98 F Pulse Rate 65 69 65 Respiratory Rate 17 16 14 Blood Pressure 149/72 H 139/75 141/67 H Pulse Oximetry 98 94 L 96 05/25/18 04:00 05/25/18 08:00 05/25/18 08:21 Temperature 98.1 F 97.9 F 97.9 F Pulse Rate 64 61 61 Respiratory Rate 15 16 16 Blood Pressure 156/73 H 151/87 H 151/87 H Pulse Oximetry 95 96 96 05/25/18 12:00 Temperature 98.1 F Pulse Rate 64 Respiratory Rate 18 Blood Pressure 155/78 H Pulse Oximetry 98 Intake & Output 05/24/18 05/25/18 05/25/18 18:59 06:59 18:59 Intake Total 1700 / 1700 1920 / 1920 100 / 100 Balance 1700 / 1700 1920 / 1920 100 / 100 Weight 60.2 kg Intake: IV 100 / 100 1200 / 1200 100 / 100 NS Inj 1,000 ML @ 70 mls/hr IV. 1000 / 1000 CONT .[id number] [facility] Rx#:[id number] Primaxin Inj 500 MG In NS Inj 100 / 100 200 / 200 100 / 100 100 ML @ 200 mls/hr IV.SIG Q8H [facility] Rx#:[id number] Oral 1600 / 1600 720 / 720 Other: # Voids 5 5 Date of Last Bowel Movement 05/24/18 # Bowel Movements 1 2 Narrative: atraumatic, normocephalic S1S2, Ward in place. No signs of infection or erythema near the site. CTA b/l soft, nontender, nondistended, normal bowel sounds No edema Results - Labs CBC & Chem 7: 05/25/18 05:16 05/25/18 05:16 Laboratory Results - last 24 hr 05/24/18 05/24/18 05/24/18 14:37 14:37 17:24 WBC 5.9 RBC 3.75 L Hgb 10.8 L Hct 33.0 L MCV 88.0 MCH 28.8 MCHC 32.7 RDW 17.8 H Plt Count 779 H MPV 9.4 Neut % (Auto) 71.2 H Lymph % (Auto) 15.8 [place] % (Auto) 9.6 H Eos % (Auto) 2.5 Baso % (Auto) 0.9 Neut # (Auto) 4.2 Lymph # (Auto) 0.9 L [place] # (Auto) 0.6 Eos # (Auto) 0.1 Baso # (Auto) 0.1 WBC Differential . Differential Comment Auto diff final Sodium Potassium Chloride Carbon Dioxide Anion Gap BUN Creatinine Estimated GFR POC Glucose 128 H Random Glucose Calcium Magnesium Total Bilirubin AST ALT Alkaline Phosphatase Total Protein Albumin Tacrolimus 4.2 L 05/24/18 05/25/18 05/25/18 20:33 05:16 05:16 WBC 9.3 D RBC 3.32 L Hgb 9.4 L Hct 28.0 L MCV 84.4 D MCH 28.3 MCHC 33.5 RDW 17.2 Plt Count 747 H MPV 8.6 Neut % (Auto) 84.3 H Lymph % (Auto) 7.3 L [place] % (Auto) 7.1 Eos % (Auto) 1.0 Baso % (Auto) 0.3 Neut # (Auto) 7.8 H Lymph # (Auto) 0.7 L [place] # (Auto) 0.7 Eos # (Auto) 0.1 Baso # (Auto) 0.0 WBC Differential . Differential Comment Auto diff final Sodium Potassium Chloride Carbon Dioxide Anion Gap BUN Creatinine Estimated GFR POC Glucose 327 H Random Glucose Calcium Magnesium Total Bilirubin AST ALT Alkaline Phosphatase Total Protein Albumin Tacrolimus 9.6 05/25/18 05/25/18 05/25/18 05:16 07:52 11:52 WBC RBC Hgb Hct MCV MCH MCHC RDW Plt Count MPV Neut % (Auto) Lymph % (Auto) [place] % (Auto) Eos % (Auto) Baso % (Auto) Neut # (Auto) Lymph # (Auto) [place] # (Auto) Eos # (Auto) Baso # (Auto) WBC Differential Differential Comment Sodium 135 L Potassium 5.0 Chloride 102 Carbon Dioxide 28.9 Anion Gap 4 L BUN 21 H Creatinine 1.45 H Estimated GFR 37 L POC Glucose 251 H 144 H Random Glucose 219 H Calcium 9.0 Magnesium 1.7 Total Bilirubin 0.1 L AST 15 ALT 15 Alkaline Phosphatase 199 H Total Protein 6.2 L Albumin 2.6 L Tacrolimus Microbiology 05/21/18 06:11 Blood - Peripheral Aerobic Blood Culture - Preliminary No growth in 4 days 05/21/18 06:11 Blood - Peripheral Anaerobic Blood Culture - Preliminary No growth in 4 days 05/21/18 06:05 Blood - Peripheral Aerobic Blood Culture - Preliminary No growth in 4 days 05/21/18 06:05 Blood - Peripheral Anaerobic Blood Culture - Preliminary No growth in 4 days 05/23/18 12:00 Catheterized Urine Urine Culture - Final No growth in 48 hours Assessment and Plan - Plan This patient is a 57-year-old female with a diagnosis of diabetes, hypertension , polycystic kidney disease status post kidney transplant, chronic diarrhea, gas esophageal reflux disease, gastroparesis, history of DVT on Lovenox. History of intra abdominal surgeries, hysterectomy. Patient also has a history of ESBL UTI previously treated with Invanz. The patient presented to emerge from with complaints of fevers and chills as well as nausea and vomiting. Patient was found to have a urinary tract infection which grew ESBL which was resistant to ertapenem and enterococcus resistant to vancomycin. 1. Severe sepsis secondary to ESBL E. coli and enterococcus MDR UTI Patient presented with fever and elevated W BC count. Urine culture positive for ESBL and enterococcus Currently on IV antibiotics IV Zyvox and Primaxin. Infectious disease following. I will follow-up with their recommendations. 2. History of polycystic kidney disease status post renal transplant 3. Acute kidney injury Continue Prograf and prednisone. Patient serum creatinine has improved to 1.4 from 1.8 on admission. Nephrology following the patient as well. Avoid nephrotoxic agents. 4. Hypomagnesemia Patient currently on p.o. magnesium. Magnesium 1.7 today, given 2 g of IV mag. We will follow-up a.m. labs. Lovenox for DVT prophylaxis.
--- NOTE | 2018-05-25 17:06 | P.PNTS ---
Subjective Interval history: Patient says she feels much better today than at admit. Denied N/V/adb pain at time of my eval. Physical Exam Vital signs: Vital Signs 05/24/18 20:00 05/25/18 00:00 05/25/18 04:00 Temperature 98.2 F 98 F 98.1 F Pulse Rate 69 65 64 Respiratory Rate 16 14 15 Blood Pressure 139/75 141/67 H 156/73 H Pulse Oximetry 94 L 96 95 05/25/18 08:00 05/25/18 08:21 05/25/18 12:00 Temperature 97.9 F 97.9 F 98.1 F Pulse Rate 61 61 64 Respiratory Rate 16 16 18 Blood Pressure 151/87 H 151/87 H 155/78 H Pulse Oximetry 96 96 98 05/25/18 16:00 Temperature 98.3 F Pulse Rate 66 Respiratory Rate 17 Blood Pressure 173/78 H Pulse Oximetry 98 Intake & Output 05/24/18 05/25/18 05/25/18 18:59 06:59 18:59 Intake Total 1700 / 1700 1920 / 1920 100 / 100 Balance 1700 / 1700 1920 / 1920 100 / 100 Weight 60.2 kg Intake: IV 100 / 100 1200 / 1200 100 / 100 NS Inj 1,000 ML @ 70 mls/hr IV. 1000 / 1000 CONT .[id number] [facility] Rx#:[id number] Primaxin Inj 500 MG In NS Inj 100 / 100 200 / 200 100 / 100 100 ML @ 200 mls/hr IV.SIG Q8H [facility] Rx#:[id number] Oral 1600 / 1600 720 / 720 Other: # Voids 5 5 Date of Last Bowel Movement 05/24/18 # Bowel Movements 1 2 - Constitutional no acute distress - Routine HEENT Exam Head: Present: normocephalic, atraumatic Eye: Present: EOMI ENT: Present: mucous membranes moist - Routine Neck Exam Present: supple, full ROM - Routine Respiratory Exam Present: CTA bilaterally - Routine Cardiovascular Exam Present: RRR, S1, S2 - Routine Abdominal Exam Present: soft, normoactive bowel sounds - Routine Skin Exam Present: intact - Routine Neurological Exam Present: alert, oriented X3 - Detailed Neurological Exam: Coma Scale Verbal Response: Oriented - Routine Psychiatric Exam Present: normal affect, normal thought process Results - Labs CBC & Chem 7: 05/25/18 05:16 05/25/18 05:16 Laboratory Results - last 24 hr 05/24/18 05/24/18 05/24/18 14:37 17:24 20:33 WBC RBC Hgb Hct MCV MCH MCHC RDW Plt Count MPV Neut % (Auto) Lymph % (Auto) [place] % (Auto) Eos % (Auto) Baso % (Auto) Neut # (Auto) Lymph # (Auto) [place] # (Auto) Eos # (Auto) Baso # (Auto) WBC Differential Differential Comment Sodium Potassium Chloride Carbon Dioxide Anion Gap BUN Creatinine Estimated GFR POC Glucose 128 H 327 H Random Glucose Calcium Magnesium Total Bilirubin AST ALT Alkaline Phosphatase Total Protein Albumin Tacrolimus 4.2 L 05/25/18 05/25/18 05/25/18 05:16 05:16 05:16 WBC 9.3 D RBC 3.32 L Hgb 9.4 L Hct 28.0 L MCV 84.4 D MCH 28.3 MCHC 33.5 RDW 17.2 Plt Count 747 H MPV 8.6 Neut % (Auto) 84.3 H Lymph % (Auto) 7.3 L [place] % (Auto) 7.1 Eos % (Auto) 1.0 Baso % (Auto) 0.3 Neut # (Auto) 7.8 H Lymph # (Auto) 0.7 L [place] # (Auto) 0.7 Eos # (Auto) 0.1 Baso # (Auto) 0.0 WBC Differential . Differential Comment Auto diff final Sodium 135 L Potassium 5.0 Chloride 102 Carbon Dioxide 28.9 Anion Gap 4 L BUN 21 H Creatinine 1.45 H Estimated GFR 37 L POC Glucose Random Glucose 219 H Calcium 9.0 Magnesium 1.7 Total Bilirubin 0.1 L AST 15 ALT 15 Alkaline Phosphatase 199 H Total Protein 6.2 L Albumin 2.6 L Tacrolimus 9.6 05/25/18 05/25/18 05/25/18 07:52 11:52 16:52 WBC RBC Hgb Hct MCV MCH MCHC RDW Plt Count MPV Neut % (Auto) Lymph % (Auto) [place] % (Auto) Eos % (Auto) Baso % (Auto) Neut # (Auto) Lymph # (Auto) [place] # (Auto) Eos # (Auto) Baso # (Auto) WBC Differential Differential Comment Sodium Potassium Chloride Carbon Dioxide Anion Gap BUN Creatinine Estimated GFR POC Glucose 251 H 144 H 312 H Random Glucose Calcium Magnesium Total Bilirubin AST ALT Alkaline Phosphatase Total Protein Albumin Tacrolimus Microbiology 05/21/18 06:11 Blood - Peripheral Aerobic Blood Culture - Preliminary No growth in 4 days 05/21/18 06:11 Blood - Peripheral Anaerobic Blood Culture - Preliminary No growth in 4 days 05/21/18 06:05 Blood - Peripheral Aerobic Blood Culture - Preliminary No growth in 4 days 05/21/18 06:05 Blood - Peripheral Anaerobic Blood Culture - Preliminary No growth in 4 days 05/23/18 12:00 Catheterized Urine Urine Culture - Final No growth in 48 hours Assessment and Plan - Assessment (1) Renal transplant recipient Code(s): Z94.0 - Kidney transplant status Status: Acute (2) History of infection due to ESBL Escherichia coli Code(s): Z86.19 - Personal history of other infectious and parasitic diseases Status: Acute (3) UTI due to extended-spectrum beta lactamase (ESBL) producing Escherichia coli Code(s): N39.0 - Urinary tract infection, site not specified; B96.29 - Other Escherichia coli [E. coli] as the cause of diseases classified elsewhere; Z16.12 - Extended spectrum beta lactamase (ESBL) resistance Status: Acute - Plan Patient with complex hisotry. s/p kidney transplant in June 2017 in [facility]. Readmitted with infectious issues. Was made aware yesterday that she was here. Came to eval. Seems to be improved clinically from admit. Awaiting further input form ID re antibiotic recommendations. Transplant renal function seems good at this time. Case d/w Dr Franklyn Bautista, urologist. Recommended vaginal estrogen suppostiories. Do not see them on formulary. Would consider starting as outpatient. Will have clinic staff place outpatient consult to him (will try to schedule appointment within next 1-2 weeks).
--- NOTE | 2018-05-25 17:26 | P.PNNP ---
Subjective Interval history: Patient with nausea and vomiting after she ate lunch Physical Exam Vital signs: Vital Signs 05/24/18 20:00 05/25/18 00:00 05/25/18 04:00 Temperature 98.2 F 98 F 98.1 F Pulse Rate 69 65 64 Respiratory Rate 16 14 15 Blood Pressure 139/75 141/67 H 156/73 H Pulse Oximetry 94 L 96 95 05/25/18 08:00 05/25/18 08:21 05/25/18 12:00 Temperature 97.9 F 97.9 F 98.1 F Pulse Rate 61 61 64 Respiratory Rate 16 16 18 Blood Pressure 151/87 H 151/87 H 155/78 H Pulse Oximetry 96 96 98 05/25/18 16:00 Temperature 98.3 F Pulse Rate 66 Respiratory Rate 17 Blood Pressure 173/78 H Pulse Oximetry 98 Intake & Output 05/24/18 05/25/18 05/25/18 18:59 06:59 18:59 Intake Total 1700 / 1700 1920 / 1920 100 / 100 Balance 1700 / 1700 1920 / 1920 100 / 100 Weight 60.2 kg Intake: IV 100 / 100 1200 / 1200 100 / 100 NS Inj 1,000 ML @ 70 mls/hr IV. 1000 / 1000 CONT .[id number] [facility] Rx#:[id number] Primaxin Inj 500 MG In NS Inj 100 / 100 200 / 200 100 / 100 100 ML @ 200 mls/hr IV.SIG Q8H [facility] Rx#:[id number] Oral 1600 / 1600 720 / 720 Other: # Voids 5 5 Date of Last Bowel Movement 05/24/18 # Bowel Movements 1 2 Narrative: atraumatic, normocephalic S1S2, Ward in place. No signs of infection or erythema near the site. CTA b/l soft, nontender, nondistended, normal bowel sounds No edema Assessment and Plan - Assessment (1) Renal transplant recipient Code(s): Z94.0 - Kidney transplant status Status: Acute (2) Fever Code(s): R50.9 - Fever, unspecified Status: Acute Qualifiers: Fever type: unspecified Qualified Code(s): R50.9 - Fever, unspecified (3) Abdominal pain Code(s): R10.9 - Unspecified abdominal pain Status: Acute (4) Acute renal failure Code(s): N17.9 - Acute kidney failure, unspecified Status: Acute (5) Gastroparesis Code(s): K31.84 - Gastroparesis Status: Acute (6) Nausea Code(s): R11.0 - Nausea Status: Acute (7) History of intestinal surgery Code(s): Z98.890 - Other specified postprocedural states Status: Acute (8) DM (diabetes mellitus) Code(s): E11.9 - Type 2 diabetes mellitus without complications Status: Acute Qualifiers: Diabetes mellitus type: type 1 (9) Renal insufficiency Code(s): N28.9 - Disorder of kidney and ureter, unspecified Status: Acute - Plan on prednisone 10 mg p.o. daily and tacrolimus 4 mg twice daily, tacrolimus 9.6 today, she has fever now and is going to require infectious disease consult GI following Patient has UTI and growing VRE and ESBL E. coli antibiotic imipenem and Zyvox ID consult appreciated, looking into different antibiotic regimen Recurrent UTI urology consult requested Tacrolimus levels 9.6 Ward catheter before antibiotics can be arranged she is okay to be discharged from nephrology point of view Urology to follow as out patient DVT treated with Lovenox and aspirin Continue with tacrolimus and prednisone
[2018-05-26] MEDS: Morphine Sulfate Inj 2 MG/ML Vial IV.PUSH PRN ×5 (02:57→21:12)
[2018-05-26 06:45] LABS: Baso % (Auto) 0.7 % (0.0-2.0); Eos # (Auto) 0.1 th/mm3 (0.0-0.4); Eos % (Auto) 1.1 % (0.0-4.0); Hematocrit 27.8 % (35.0-46.0); Hemoglobin 8.9 gm/dL (11.6-15.3); Lymph # (Auto) 0.8 th/mm3 (1.0-4.8); Lymph % (Auto) 12.4 % (9.0-44.0); Mean Corpuscular HGB Conc 32.1 % (32.0-36.0); Mean Corpuscular Hemoglobin 28.1 pg (27.0-34.0); Mean Corpuscular Volume 87.5 fL (80.0-100.0); Mean Platelet Volume 8.9 fL (7.0-11.0); Mono # (Auto) 0.8 th/mm3 (0.0-0.9); Mono % (Auto) 11.7 % (0.0-8.0); Neut % (Auto) 74.1 % (16.0-70.0); Platelet Count 764 th/mm3 (150-450); Red Blood Count 3.18 mil/mm3 (4.00-5.30); Red Cell Distribution Width 17.5 % (11.6-17.2); White Blood Count 6.7 th/mm3 (4.0-11.0)
[2018-05-26] MEDS: Sod Chloride 0.9% Inj 1,000 ML IV.CONT SCH ×3 (06:58→21:53)
[2018-05-26 07:43] LABS: Calcium 9.4 mg/dL (8.5-10.1); Carbon Dioxide 24.7 meq/L (21.0-32.0); Magnesium 2.2 mg/dL (1.5-2.5); Potassium 5.2 meq/L (3.5-5.1)
[2018-05-26] MEDS: Linezolid 600 MG Tablet PO SCH ×2 (07:59→21:37)
[2018-05-26] MEDS: Enoxaparin Inj 60 MG/0.6 ML Syringe SQ SCH ×2 (07:59→20:03)
[2018-05-26] MEDS: Aspirin 325 MG Tablet PO SCH (07:59)
[2018-05-26] MEDS: Lipase/Protease/Amylase 24/76/120 DR Capsule PO SCH ×3 (07:59→17:08)
[2018-05-26] MEDS: predniSONE 10 MG Tablet PO SCH (07:59)
[2018-05-26] MEDS: Insulin NovoLOG Aspart Correctional Sugar Inj SQ SCH ×4 (08:00→21:34)
[2018-05-26] MEDS: Metoclopramide 10 MG Tablet PO SCH ×3 (08:00→17:08)
[2018-05-26] MEDS: Carvedilol 12.5 MG Tablet PO SCH ×2 (08:00→21:37)
[2018-05-26] MEDS: Insulin Detemir Inj 1,000 UNIT/10 ML Vial SQ SCH ×2 (08:03→21:33)
[2018-05-26] MEDS: Magnesium Oxide 400 MG Tablet PO SCH ×2 (08:03→21:37)
[2018-05-26] MEDS: Sodium Chloride 0.9% 2 ML Flush BID IV.FLUSH SCH ×2 (08:04→21:49)
--- NOTE | 2018-05-26 09:55 | P.PNIM ---
Subjective Interval history: Patient requesting no p.o. pain meds. She has the occasional abdominal pain is well tolerated with IV morphine. She does not have any other complaints. Physical Exam Vital signs: Vital Signs 05/25/18 12:00 05/25/18 16:00 05/25/18 20:00 Temperature 98.1 F 98.3 F 98.1 F Pulse Rate 64 66 70 Respiratory Rate 18 17 18 Blood Pressure 155/78 H 173/78 H 158/71 H Pulse Oximetry 98 98 98 05/26/18 00:00 05/26/18 00:22 05/26/18 03:49 Temperature 98.7 F 98.2 F Pulse Rate 68 63 Respiratory Rate 20 18 20 Blood Pressure 187/87 H 180/84 H Pulse Oximetry 97 98 Intake & Output 05/25/18 05/26/18 05/26/18 18:59 06:59 18:59 Intake Total 2700 / 2700 100 / 100 Balance 2700 / 2700 100 / 100 Weight 63.8 kg Intake: IV 1300 / 1300 100 / 100 NS Inj 1,000 ML @ 70 mls/hr IV. 1000 / 1000 CONT .[id number] [facility] Rx#:[id number] Primaxin Inj 500 MG In NS Inj 200 / 200 100 / 100 100 ML @ 200 mls/hr IV.SIG Q8H [facility] Rx#:[id number] Magnesium Sulfate Inj 2 GM In 100 / 100 NS Inj 96 ML @ 50 mls/hr IV.SIG ONCE ONE Rx#:[id number] Oral 1400 / 1400 Other: # Voids 6 3 # Bowel Movements 3 Narrative: atraumatic, normocephalic S1S2, Ward in place. No signs of infection or erythema near the site. CTA b/l soft, nontender, nondistended, normal bowel sounds No edema Results - Labs CBC & Chem 7: 05/26/18 06:20 05/26/18 06:20 Laboratory Results - last 24 hr 05/24/18 05/24/18 05/25/18 17:24 20:33 05:16 WBC RBC Hgb Hct MCV MCH MCHC RDW Plt Count MPV Neut % (Auto) Lymph % (Auto) [place] % (Auto) Eos % (Auto) Baso % (Auto) Neut # (Auto) Lymph # (Auto) [place] # (Auto) Eos # (Auto) Baso # (Auto) WBC Differential Differential Comment Sodium Potassium Chloride Carbon Dioxide Anion Gap BUN Creatinine Estimated GFR POC Glucose 128 H 327 H Random Glucose Calcium Magnesium Tacrolimus 9.6 05/25/18 05/25/18 05/25/18 11:52 16:52 21:55 WBC RBC Hgb Hct MCV MCH MCHC RDW Plt Count MPV Neut % (Auto) Lymph % (Auto) [place] % (Auto) Eos % (Auto) Baso % (Auto) Neut # (Auto) Lymph # (Auto) [place] # (Auto) Eos # (Auto) Baso # (Auto) WBC Differential Differential Comment Sodium Potassium Chloride Carbon Dioxide Anion Gap BUN Creatinine Estimated GFR POC Glucose 144 H 312 H 294 H Random Glucose Calcium Magnesium Tacrolimus 05/26/18 05/26/18 05/26/18 06:20 06:20 07:30 WBC 6.7 RBC 3.18 L Hgb 8.9 L Hct 27.8 L MCV 87.5 MCH 28.1 MCHC 32.1 RDW 17.5 H Plt Count 764 H MPV 8.9 Neut % (Auto) 74.1 H Lymph % (Auto) 12.4 [place] % (Auto) 11.7 H Eos % (Auto) 1.1 Baso % (Auto) 0.7 Neut # (Auto) 5.0 Lymph # (Auto) 0.8 L [place] # (Auto) 0.8 Eos # (Auto) 0.1 Baso # (Auto) 0.0 WBC Differential . Differential Comment Auto diff final Sodium 136 Potassium 5.2 H Chloride 104 Carbon Dioxide 24.7 Anion Gap 7 BUN 19 H Creatinine 1.35 H Estimated GFR 40 L POC Glucose 124 H Random Glucose 105 D Calcium 9.4 Magnesium 2.2 Tacrolimus Microbiology 05/17/18 01:30 Clean Catch Urine Urine Culture - Final Escherichia coli ESBL positive Enterococcus faecium 05/21/18 06:11 Blood - Peripheral Aerobic Blood Culture - Preliminary No growth in 4 days 05/21/18 06:11 Blood - Peripheral Anaerobic Blood Culture - Preliminary No growth in 4 days 05/21/18 06:05 Blood - Peripheral Aerobic Blood Culture - Preliminary No growth in 4 days 05/21/18 06:05 Blood - Peripheral Anaerobic Blood Culture - Preliminary No growth in 4 days 05/23/18 12:00 Catheterized Urine Urine Culture - Final No growth in 48 hours Assessment and Plan - Plan This patient is a 57-year-old female with a diagnosis of diabetes, hypertension , polycystic kidney disease status post kidney transplant, chronic diarrhea, gas esophageal reflux disease, gastroparesis, history of DVT on Lovenox. History of intra abdominal surgeries, hysterectomy. Patient also has a history of ESBL UTI previously treated with Invanz. The patient presented to emerge from with complaints of fevers and chills as well as nausea and vomiting. Patient was found to have a urinary tract infection which grew ESBL which was resistant to ertapenem and enterococcus resistant to vancomycin. 1. Severe sepsis secondary to ESBL E. coli and enterococcus MDR UTI Patient afebrile overnight. Patient presented with fever and elevated WBC count. Urine culture positive for ESBL and enterococcus Currently on IV antibiotics IV Zyvox and Primaxin. Infectious disease following. I will discuss the case with ID today and plan for discharge. 2. History of polycystic kidney disease status post renal transplant 3. Acute kidney injury Continue Prograf and prednisone. Patient serum creatinine has improved to 1.35 today. Nephrology following the patient as well. Avoid nephrotoxic agents. 4. Hypomagnesemia Magnesium level within normal limits today. Lovenox for DVT prophylaxis.
[2018-05-26] MEDS ORDERED: amLODIPine 5 MG Tablet PO SCH (10:00)
--- NOTE | 2018-05-26 11:04 | P.CONURO ---
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 The patient was discharged to home with Invanz times 2-week, completed 1 week ago prior to ER visit at which time her Ward was removed. She reports a home temperature of 102 taken by mouth. Her fever resolved on its own without antipyretic medications by the time she arrived in the emergency department. She is status post renal transplant on 07/22/17 in [place]. The patient's primary concern at this time is her gastrointestinal issues. She reports significant emesis x2 earlier today and is concerned about possible obstruction. During her previous hospitalization (discharge on 04/27/18) the patient was evaluated by gastroenterology who started rifaximin. The patient denies any chest pain or shortness of breath. No dysuria or urinary retention. No lateralizing signs/ symptoms. She was admitted and UC was positive for E coli and Enterococcus. Nephrology, GI, ID, transplans sx teams are on board. She is on antbx. Its a recurrent UTI issue for her and Urology consulted. Pt is on immunosuppressants and it puts her in a higher risk of developing infections, including UTI She feels better. Her VS and LAbs are stable. CT from 05/17 is ok as well. Review of Systems All other systems reviewed negative except as stated in HPI PMFSH - History History Provided By: Patient - Medical History Medical History: Medical History (Last Updated 05/23/18 @ 09:16 by Kristine Milan) Diabetes Dumping syndrome Fracture, femur GERD (gastroesophageal reflux disease) Gastroparesis Gastroparesis History of ESBL E. coli infection Onset Date: ~05/17/18 History of hysterectomy Kidney failure Liver function failure - Surgical History Surgical History: Surgical History (Last Reviewed 05/17/18 @ 10:55 by Miki Hughes MD) H/O splenectomy (Acute) History of intestinal surgery (Acute) History of colectomy History of oophorectomy History of pancreatectomy Kidney transplant recipient Surgical procedure on lower extremity within past 6 months - Tobacco History Second Hand Smoke Exposure: No Tobacco Use In Past 30 Days: No Smoking Status: Never smoker Tobacco Type: Cigarettes Smoking End Date: 2008 (smoke 1/4 PPD off and on for 10 years before quitting in 2008) - Alcohol History How Often Do You Have a Drink Containing Alcohol: Never - Substance Use History Substance History: No History of Abuse - Travel History History of Recent Travel: Yes (was in [place] then [place]) Recent Travel in the [facility] Within the Last 8 Weeks: No Recent Travel Out of the Country Within the Last 8 Weeks: No - Immunization History Tetanus Immunization: <5 Years Hx Influenza Vaccine This Season: Yes Medications and Allergies Active Medications: Active Medications Acetaminophen (Tylenol) 650 mg PO Q4H PRN PRN Reason: Temp > 100.4 Last Admin: 05/25/18 04:52 Dose: 650 mg Hydrocodone Bitart/Acetaminophen ([place] 10/325) 1 tab PO Q4H PRN PRN Reason: pain 6-10 Last Admin: 05/25/18 12:50 Dose: 1 tab Hydrocodone Bitart/Acetaminophen ([place] 5/325) 1 tab PO Q4H PRN PRN Reason: pain 2-5 Amlodipine Besylate (Norvasc) 5 mg PO DAILY [facility] Lipase/Protease/Amylase (Donovan Weinberg 24/76/120) 3 cap PO TID [facility] Last Admin: 05/26/18 07:59 Dose: 3 cap Aspirin (Aspirin) 81 mg PO DAILY [facility] Last Admin: 05/26/18 07:59 Dose: 81 mg Carvedilol (Coreg) 12.5 mg PO BID [facility] Last Admin: 05/26/18 08:00 Dose: 12.5 mg Dextrose (D50w Vial) 50 ml IV.PUSH UNSCH PRN PRN Reason: PER HYPOGLYCEMIA PROTOCOL Enoxaparin Sodium (Lovenox Inj) 70 mg SQ Q12HR [facility] Last Admin: 05/23/18 21:53 Dose: 70 mg Enoxaparin Sodium (Lovenox Inj) 60 mg SQ Q12HR [facility] Last Admin: 05/26/18 07:59 Dose: 60 mg Ergocalciferol (Vitamin D2) 50,000 unit PO MOWEFR [facility] Last Admin: 05/25/18 18:00 Dose: 50,000 unit Glucagon (Glucagon Inj) 1 mg OTHER PRN PRN PRN Reason: for Hypoglycemia Protocol Sodium Chloride (Ns Inj) 1,000 mls @ 70 mls/hr IV.CONT .[id number] [facility] Last Admin: 05/26/18 06:58 Dose: Not Given Imipenem/Cilastatin Sodium 500 (mg/ Sodium Chloride) 100 mls @ 200 mls/hr IV.SIG Q8H [facility] Last Admin: 05/26/18 10:52 Dose: 200 mls/hr Insulin Aspart (Novolog Insulin Correctional Sugar Inj) 0 unit SQ ACHS [facility]; Protocol Last Admin: 05/26/18 08:00 Dose: Not Given Insulin Detemir (Levemir Inj) 10 unit SQ BID [facility] Last Admin: 05/26/18 08:03 Dose: 10 unit Linezolid (Zyvox) 600 mg PO Q12HR [facility] Last Admin: 05/26/18 07:59 Dose: 600 mg Loratadine (Claritin) 10 mg PO DAILY PRN PRN Reason: congestion Last Admin: 05/18/18 10:38 Dose: 10 mg Magnesium Oxide (Mag-Ox) 400 mg PO BID [facility] Last Admin: 05/26/18 08:03 Dose: 400 mg Metoclopramide HCl (Reglan Inj) 5 mg IV.PUSH Q8H PRN; Protocol PRN Reason: gastroporesis Last Admin: 05/19/18 08:49 Dose: 5 mg Metoclopramide HCl (Reglan) 10 mg PO TID [facility] Last Admin: 05/26/18 08:00 Dose: 10 mg Morphine Sulfate (Morphine Inj) 2 mg IV.PUSH Q4H PRN PRN Reason: breakth pain/unable PO Last Admin: 05/26/18 08:04 Dose: 2 mg Ondansetron HCl (Zofran Inj) 4 mg IV.PUSH Q6H PRN PRN Reason: NAUSEA OR VOMITING Last Admin: 05/26/18 10:52 Dose: 4 mg Ondansetron HCl (Zofran Odt) 4 mg PO Q6H PRN PRN Reason: nausea/vomiting - if IV out Last Admin: 05/24/18 04:38 Dose: 4 mg Pantoprazole Sodium (Protonix) 40 mg PO DAILY [facility] Last Admin: 05/26/18 07:59 Dose: 40 mg Prednisone (Deltasone) 10 mg PO DAILY [facility] Last Admin: 05/26/18 07:59 Dose: 10 mg Sodium Chloride (Ns Flush) 2 ml IV.FLUSH BID [facility] Last Admin: 05/26/18 08:04 Dose: Not Given Sodium Chloride (Ns Flush) 2 ml IV.FLUSH PRN PRN PRN Reason: FLUSH AFTER USING IV ACCESS Sodium Chloride ([place] Nasal [place]) 2 spray EACH NARE Q4H PRN PRN Reason: congestion Tacrolimus (Prograf) 4 mg PO BID [facility] Last Admin: 05/26/18 07:59 Dose: 4 mg Allergies Allergy/AdvReac Type Severity Reaction Status Date / Time metronidazole [From Flagyl] Allergy Mild Swelling Verified 04/22/18 16:51 of the Eye oxycodone Allergy Mild Itching, Verified 04/22/18 16:52 Generalized oxytetracycline Allergy Mild Hives Verified 03/27/18 18:27 [From Terramycin] fentanyl Allergy Edema Verified 04/05/18 17:07 filgrastim [From Neupogen] Allergy Anaphylaxis Verified 04/05/18 10:48 Home Medications Medication Instructions Recorded Confirmed Type Phenergan 25 mg PO Q6-8H PRN 03/27/18 05/17/18 History acetaminophen 650 mg PO Q4H PRN 03/27/18 05/17/18 History atorvastatin 20 mg PO DAILY 03/27/18 05/17/18 History carvedilol 12.5 mg PO BID 03/27/18 05/17/18 History diphenoxylate-atropine [Lomotil] 1 tab PO TID 03/27/18 05/17/18 History ergocalciferol (vitamin D2) 50,000 unit PO 3XW 03/27/18 05/17/18 History insulin glargine 12 unit SUBCUT QAM AND QHS 03/27/18 05/17/18 History insulin lispro 1 sliding scale dose SUBCUT UD 03/27/18 05/17/18 History [id number] [Creon] 3 cap PO TIDAC 03/27/18 05/17/18 History ondansetron 4 mg PO Q8H PRN 03/27/18 05/17/18 History prednisone 10 mg PO DAILY 03/27/18 05/17/18 History prochlorperazine maleate 10 mg PO Q6-8H PRN 03/27/18 05/17/18 History [Compazine] tacrolimus [Prograf] 4 mg PO Q12H 03/27/18 05/17/18 History dexlansoprazole [Dexilant] 60 mg PO DAILY 04/24/18 05/17/18 History metoclopramide HCl [Reglan] 10 mg PO TID 04/24/18 05/17/18 History Physical Exam Vital Signs - 24 hr 05/25/18 12:00 05/25/18 16:00 05/25/18 20:00 Temperature 98.1 F 98.3 F 98.1 F Pulse Rate 64 66 70 Respiratory Rate 18 17 18 Blood Pressure 155/78 H 173/78 H 158/71 H Pulse Oximetry 98 98 98 05/26/18 00:00 05/26/18 00:22 05/26/18 03:49 Temperature 98.7 F 98.2 F Pulse Rate 68 63 Respiratory Rate 20 18 20 Blood Pressure 187/87 H 180/84 H Pulse Oximetry 97 98 Physical Exam: NAD RRR Clear lungs Abd soft NT Laboratory Results - last 24 hr 05/24/18 05/24/18 05/25/18 17:24 20:33 11:52 WBC RBC Hgb Hct MCV MCH MCHC RDW Plt Count MPV Neut % (Auto) Lymph % (Auto) [place] % (Auto) Eos % (Auto) Baso % (Auto) Neut # (Auto) Lymph # (Auto) [place] # (Auto) Eos # (Auto) Baso # (Auto) WBC Differential Differential Comment Sodium Potassium Chloride Carbon Dioxide Anion Gap BUN Creatinine Estimated GFR POC Glucose 128 H 327 H 144 H Random Glucose Calcium Magnesium 05/25/18 05/25/18 05/26/18 16:52 21:55 06:20 WBC 6.7 RBC 3.18 L Hgb 8.9 L Hct 27.8 L MCV 87.5 MCH 28.1 MCHC 32.1 RDW 17.5 H Plt Count 764 H MPV 8.9 Neut % (Auto) 74.1 H Lymph % (Auto) 12.4 [place] % (Auto) 11.7 H Eos % (Auto) 1.1 Baso % (Auto) 0.7 Neut # (Auto) 5.0 Lymph # (Auto) 0.8 L [place] # (Auto) 0.8 Eos # (Auto) 0.1 Baso # (Auto) 0.0 WBC Differential . Differential Comment Auto diff final Sodium Potassium Chloride Carbon Dioxide Anion Gap BUN Creatinine Estimated GFR POC Glucose 312 H 294 H Random Glucose Calcium Magnesium 05/26/18 05/26/18 06:20 07:30 WBC RBC Hgb Hct MCV MCH MCHC RDW Plt Count MPV Neut % (Auto) Lymph % (Auto) [place] % (Auto) Eos % (Auto) Baso % (Auto) Neut # (Auto) Lymph # (Auto) [place] # (Auto) Eos # (Auto) Baso # (Auto) WBC Differential Differential Comment Sodium 136 Potassium 5.2 H Chloride 104 Carbon Dioxide 24.7 Anion Gap 7 BUN 19 H Creatinine 1.35 H Estimated GFR 40 L POC Glucose 124 H Random Glucose 105 D Calcium 9.4 Magnesium 2.2 Microbiology 05/17/18 01:30 Urine Culture - Final Clean Catch Urine Escherichia coli ESBL positive Enterococcus faecium 05/21/18 06:11 Aerobic Blood Culture - Preliminary Blood - Peripheral No growth in 4 days Anaerobic Blood Culture - Preliminary No growth in 4 days 05/21/18 06:05 Aerobic Blood Culture - Preliminary Blood - Peripheral No growth in 4 days Anaerobic Blood Culture - Preliminary No growth in 4 days 05/23/18 12:00 Urine Culture - Final Catheterized Urine No growth in 48 hours Result Diagrams: 05/26/18 06:20 05/26/18 06:20 Imaging: ITS Impressions Abdomen/Pelvis CT 05/17/18 00:00 CONCLUSION: 1. Extensive postsurgical changes which include a gastrojejunostomy, pancreatectomy, choledochojejunostomy, splenectomy, cholecystectomy and hysterectomy. 2. Right pelvic renal transplant. 3. No evidence of intra-abdominal abscess, free fluid or free air. 4. No evidence of suspicious mass or developing lymphadenopathy. Chest X-Ray 05/21/18 00:00 CONCLUSION: No active disease. Minimal linear scarring left lung base. Upper GI and Small Bowel X-Ray 05/21/18 00:00 CONCLUSION: No obstruction is seen. Status post resection of much of the colon. Contrast is seen within the rectum. Pneumobilia. On later images contrast is seen to extend into the biliary system. Venous Doppler Study 05/23/18 00:00 CONCLUSION: 1. DVT of the left lower extremity. 2. No DVT identified on the right. Ward Line Insertion 05/24/18 00:00 CONCLUSION: 1. Uncomplicated Ward catheter placement as above. Assessment and Plan - Plan 57y.o F with Hx as per HPI Urology consulted for recurrent UTIs - Continue care as per primary and other teams - Needs to address her UTI issue with Transplant sx team and ID - She will also benefit from cystoscopy by as outpt after discharge No additional intervention needed now Discussed Condition With: Dr Guajardo attending who agrees with this plan
--- NOTE | 2018-05-26 12:27 | P.PNTS ---
Subjective Interval history: Had episode of emesis last night. Denies nausea now. Feels okay now. Physical Exam Vital signs: Vital Signs 05/25/18 16:00 05/25/18 20:00 05/26/18 00:00 Temperature 98.3 F 98.1 F 98.7 F Pulse Rate 66 70 68 Respiratory Rate 17 18 20 Blood Pressure 173/78 H 158/71 H 187/87 H Pulse Oximetry 98 98 97 05/26/18 00:22 05/26/18 03:49 05/26/18 08:00 Temperature 98.2 F 97.6 F Pulse Rate 63 72 Respiratory Rate 18 20 15 Blood Pressure 180/84 H 167/74 H Pulse Oximetry 98 Intake & Output 05/25/18 05/26/18 05/26/18 18:59 06:59 18:59 Intake Total 2700 / 2700 100 / 100 Balance 2700 / 2700 100 / 100 Weight 63.8 kg Intake: IV 1300 / 1300 100 / 100 NS Inj 1,000 ML @ 70 mls/hr IV. 1000 / 1000 CONT .[id number] [facility] Rx#:[id number] Primaxin Inj 500 MG In NS Inj 200 / 200 100 / 100 100 ML @ 200 mls/hr IV.SIG Q8H [facility] Rx#:[id number] Magnesium Sulfate Inj 2 GM In 100 / 100 NS Inj 96 ML @ 50 mls/hr IV.SIG ONCE ONE Rx#:[id number] Oral 1400 / 1400 Other: # Voids 6 3 # Bowel Movements 3 - Constitutional no acute distress - Routine HEENT Exam Head: Present: normocephalic, atraumatic Eye: Present: EOMI ENT: Present: mucous membranes moist - Routine Neck Exam Present: supple - Routine Respiratory Exam Present: CTA bilaterally - Routine Cardiovascular Exam Present: RRR, S1, S2 - Routine Abdominal Exam Present: soft, normoactive bowel sounds - Routine Extremities Exam Present: pulses intact Comments: Calves fot NT B. with no palpable cords. No edema - Routine Skin Exam Present: intact - Routine Neurological Exam Present: alert, oriented X3 - Detailed Neurological Exam: Coma Scale Verbal Response: Oriented - Routine Psychiatric Exam Present: normal affect, normal thought process Results - Labs CBC & Chem 7: 05/26/18 06:20 05/26/18 06:20 Laboratory Results - last 24 hr 11/05/25/18 05/26/18 16:52 21:55 06:20 WBC RBC Hgb Hct MCV MCH MCHC RDW Plt Count MPV Neut % (Auto) Lymph % (Auto) [place] % (Auto) Eos % (Auto) Baso % (Auto) Neut # (Auto) Lymph # (Auto) [place] # (Auto) Eos # (Auto) Baso # (Auto) WBC Differential Differential Comment Sodium Potassium Chloride Carbon Dioxide Anion Gap BUN Creatinine Estimated GFR POC Glucose 312 H 294 H Random Glucose Calcium Magnesium Tacrolimus 6.7 05/26/18 05/26/18 05/26/18 06:20 06:20 07:30 WBC 6.7 RBC 3.18 L Hgb 8.9 L Hct 27.8 L MCV 87.5 MCH 28.1 MCHC 32.1 RDW 17.5 H Plt Count 764 H MPV 8.9 Neut % (Auto) 74.1 H Lymph % (Auto) 12.4 [place] % (Auto) 11.7 H Eos % (Auto) 1.1 Baso % (Auto) 0.7 Neut # (Auto) 5.0 Lymph # (Auto) 0.8 L [place] # (Auto) 0.8 Eos # (Auto) 0.1 Baso # (Auto) 0.0 WBC Differential . Differential Comment Auto diff final Sodium 136 Potassium 5.2 H Chloride 104 Carbon Dioxide 24.7 Anion Gap 7 BUN 19 H Creatinine 1.35 H Estimated GFR 40 L POC Glucose 124 H Random Glucose 105 D Calcium 9.4 Magnesium 2.2 Tacrolimus Microbiology 05/21/18 06:11 Blood - Peripheral Aerobic Blood Culture - Final No growth in 5 days 05/21/18 06:11 Blood - Peripheral Anaerobic Blood Culture - Final No growth in 5 days 05/21/18 06:05 Blood - Peripheral Aerobic Blood Culture - Final No growth in 5 days 05/21/18 06:05 Blood - Peripheral Anaerobic Blood Culture - Final No growth in 5 days 05/17/18 01:30 Clean Catch Urine Urine Culture - Final Escherichia coli ESBL positive Enterococcus faecium 05/23/18 12:00 Catheterized Urine Urine Culture - Final No growth in 48 hours Assessment and Plan - Assessment (1) Renal transplant recipient Code(s): Z94.0 - Kidney transplant status Status: Acute (2) History of infection due to ESBL Escherichia coli Code(s): Z86.19 - Personal history of other infectious and parasitic diseases Status: Acute (3) UTI due to extended-spectrum beta lactamase (ESBL) producing Escherichia coli Code(s): N39.0 - Urinary tract infection, site not specified; B96.29 - Other Escherichia coli [E. coli] as the cause of diseases classified elsewhere; Z16.12 - Extended spectrum beta lactamase (ESBL) resistance Status: Acute - Plan Patient with complex history. s/p kidney transplant in June 2017 in [facility]. Readmitted with infectious issues. Improved clinically from admit. Awaiting ID recommendations re antibiotics. Transplant renal function remains good at this time. Vaginal estrogen cream ordered. Would consider starting estrogen suppository as outpatient. Urology note from urology PA noted. Appreciate input. No other recommendations at this time.
[2018-05-26] MEDS ORDERED: Estrogens Congugated Vag Cream w/app 30 GM Tube VAGINAL ONE (14:00)
--- NOTE | 2018-05-26 14:52 | P.PNNP ---
Subjective Interval history: Patient states central line has been bleeding trying to redress Physical Exam Vital signs: Vital Signs 05/25/18 16:00 05/25/18 20:00 05/26/18 00:00 Temperature 98.3 F 98.1 F 98.7 F Pulse Rate 66 70 68 Respiratory Rate 17 18 20 Blood Pressure 173/78 H 158/71 H 187/87 H Pulse Oximetry 98 98 97 05/26/18 00:22 05/26/18 03:49 05/26/18 08:00 Temperature 98.2 F 97.6 F Pulse Rate 63 72 Respiratory Rate 18 20 15 Blood Pressure 180/84 H 167/74 H Pulse Oximetry 98 05/26/18 12:00 Temperature 98.5 F Pulse Rate 80 Respiratory Rate 18 Blood Pressure 168/83 H Pulse Oximetry 97 Intake & Output 05/25/18 05/26/18 05/26/18 18:59 06:59 18:59 Intake Total 2700 / 2700 100 / 100 Balance 2700 / 2700 100 / 100 Weight 63.8 kg Intake: IV 1300 / 1300 100 / 100 NS Inj 1,000 ML @ 70 mls/hr IV. 1000 / 1000 CONT .[id number] [facility] Rx#:[id number] Primaxin Inj 500 MG In NS Inj 200 / 200 100 / 100 100 ML @ 200 mls/hr IV.SIG Q8H [facility] Rx#:[id number] Magnesium Sulfate Inj 2 GM In 100 / 100 NS Inj 96 ML @ 50 mls/hr IV.SIG ONCE ONE Rx#:[id number] Oral 1400 / 1400 Other: # Voids 6 3 # Bowel Movements 3 Narrative: atraumatic, normocephalic S1S2, Ward in place. No signs of infection or erythema near the site. CTA b/l soft, nontender, nondistended, normal bowel sounds No edema Assessment and Plan - Assessment (1) Renal transplant recipient Code(s): Z94.0 - Kidney transplant status Status: Acute (2) Fever Code(s): R50.9 - Fever, unspecified Status: Acute Qualifiers: Fever type: unspecified Qualified Code(s): R50.9 - Fever, unspecified (3) Abdominal pain Code(s): R10.9 - Unspecified abdominal pain Status: Acute (4) Acute renal failure Code(s): N17.9 - Acute kidney failure, unspecified Status: Acute (5) Gastroparesis Code(s): K31.84 - Gastroparesis Status: Acute (6) Nausea Code(s): R11.0 - Nausea Status: Acute (7) History of intestinal surgery Code(s): Z98.890 - Other specified postprocedural states Status: Acute (8) DM (diabetes mellitus) Code(s): E11.9 - Type 2 diabetes mellitus without complications Status: Acute Qualifiers: Diabetes mellitus type: type 1 (9) Renal insufficiency Code(s): N28.9 - Disorder of kidney and ureter, unspecified Status: Acute - Plan on prednisone 10 mg p.o. daily and tacrolimus 4 mg twice daily, tacrolimus 9.6 today, she has fever now and is going to require infectious disease consult GI following Patient has UTI and growing VRE and ESBL E. coli antibiotic imipenem and Zyvox ID consult appreciated, looking into different antibiotic regimen Recurrent UTI urology consult requested Tacrolimus levels 6.7 Ward catheter before antibiotics can be arranged she is okay to be discharged from nephrology point of view Urology to follow as out patient Patient given estrogen vaginal cream per Dr. Patel DVT treated with Lovenox and aspirin Continue with tacrolimus and prednisone
--- NOTE | 2018-05-26 17:41 | P.DCO ---
Post Hospital Infusion Therapy - Infusion Therapy Location of Infusion Therapy: Home Health Care IV Infusion Order - Patient Information Patient Weight: 63.8 kg - Diagnosis (1) UTI due to extended-spectrum beta lactamase (ESBL) producing Escherichia coli Code(s): N39.0 - Urinary tract infection, site not specified; B96.29 - Other Escherichia coli [E. coli] as the cause of diseases classified elsewhere; Z16.12 - Extended spectrum beta lactamase (ESBL) resistance - Administer Medication Ceftazidime/Avibactam Directions: q 8 hours Additional Dosing Instructions: Avycaz 1.25 gm IV q8H Stop Treatment: 06/06/18 - Additional Information Venous Access: Other (Ward) Additional Instructions: [x] Peripheral flush and dressing changes per protocol [x] Implanted port and central line installer trolley: * Implanted port: 10 ml Normal Saline followed by 5 ml Heparin 100 units/ml Heparin flush after each use and monthly to maintain. [] May leave port accessed during therapy. [] May leave peripheral site accessed for duration of therapy. [x] If patient has SOB or respiratory distress, check oxygen saturation. If less than 90% or clinical signs of respiratory distress, administer oxygen at 2 L/min. via nasal cannula and notify physician. [x] Anaphylaxis/Reaction orders: * Stop infusion. * Keep IV line open with saline flush. * Notify physician. * Monitor vital signs every 15 minutes until symptoms resolve. * Check Oxygen saturation; Oxygen at 2 L/min. via nasal cannula if less than 90% or clinical signs of respiratory distress. * Administer diphenhydramine (Benadryl) 25 mg IV STAT, (unless patient has received as pre-med). May repeat once, if necessary. * Solu-Cortef 250 mg IVP over 30-60 seconds, use 100 mg vials for each dissolution. * Epinephrine (1mg/1 ml) 0.3 mg subcutaneously or IVP now with any signs of respiratory distress. * Check with physician for new additional pre-med orders if patient is re- challenged or re-treated. [x] May remove PICC line when treatment complete, after confirming with Physician. [x] If the patient is admitted to the hospital, the ED, or transferred via [facility] , complete transfer form including medication reconciliation order sheet. Weekly Labs: CBC w/diff (Labs every Osorio - copy to me, Dr Patel and Dr Miki Hughes), Creatinine (labs every Wednesday) - Case Management Consult Case Management Consult-IVF: Yes (Home health nurse for antibiotic infusion) - Patient Information Allergies metronidazole [From Flagyl] Allergy (Mild, Verified 04/22/18 16:51) Swelling of the Eye oxycodone Allergy (Mild, Verified 04/22/18 16:52) Itching, Generalized oxytetracycline [From Terramycin] Allergy (Mild, Verified 03/27/18 18:27) Hives fentanyl Allergy (Verified 04/05/18 17:07) Edema filgrastim [From Neupogen] Allergy (Verified 04/05/18 10:48) Anaphylaxis
--- NOTE | 2018-05-26 18:05 | P.PNID ---
Subjective Remarks: 57-year-old white female who is status post renal transplantation. The patient has had recurrent urinary tract infection. She was recently treated for UTI with ertapenem for resistant bacteria. She received 2 weeks of antibiotics and she was readmitted again because of fever. The course of antibiotic with ertapenem completed on 05/12/2018. The patient was evaluated and cultures of the urine were sent. The urine culture came back with extended-spectrum beta- lactamase Escherichia coli, which is resistant to ertapenem and also VRE. Prior to the ertapenem she was on meropenem. The VRE is sensitive to Zyvox. The ESBL Escherichia coli is sensitive to imipenem. Notes reviewed Feels much better NO N/V currently Having bleeding at Ward site Repeat UC negative Temps ok Blood cultures taken on admission have no growth. Her E coli ESBL is getting more resistant - R to Zerbaxa, S to Avycaz On RX for multiple DVT Antibiotics: Primaxin Zyvox Past Medical History: Diabetes mellitus, gastroesophageal reflux disease, gastroparesis dumping syndrome, chronic kidney disease, liver disease, recurrent urinary tract infection, history of femur fracture, history of splenectomy, history of colectomy, history of oophorectomy, history of pancreatectomy, renal transplant 6 months ago. Allergies/Adverse Reactions: Allergies metronidazole [From Flagyl] Allergy (Mild, Verified 04/22/18 16:51) Swelling of the Eye oxycodone Allergy (Mild, Verified 04/22/18 16:52) Itching, Generalized oxytetracycline [From Terramycin] Allergy (Mild, Verified 03/27/18 18:27) Hives fentanyl Allergy (Verified 04/05/18 17:07) Edema filgrastim [From Neupogen] Allergy (Verified 04/05/18 10:48) Anaphylaxis Objective Vital Signs 05/25/18 20:00 05/26/18 00:00 05/26/18 00:22 Temperature 98.1 F 98.7 F Pulse Rate 70 68 Respiratory Rate 18 20 18 Blood Pressure 158/71 H 187/87 H Pulse Oximetry 98 97 05/26/18 03:49 05/26/18 08:00 05/26/18 12:00 Temperature 98.2 F 97.6 F 98.5 F Pulse Rate 63 72 80 Respiratory Rate 20 15 18 Blood Pressure 180/84 H 167/74 H 168/83 H Pulse Oximetry 98 97 05/26/18 16:00 05/26/18 17:30 Temperature 98.2 F Pulse Rate 67 Respiratory Rate 17 Blood Pressure 203/96 H 201/89 H Pulse Oximetry 97 Intake & Output 05/25/18 05/26/18 05/26/18 18:59 06:59 18:59 Intake Total 2700 / 2700 100 / 100 100 / 100 Balance 2700 / 2700 100 / 100 100 / 100 Weight 63.8 kg 63.8 kg Intake: IV 1300 / 1300 100 / 100 100 / 100 NS Inj 1,000 ML @ 70 mls/hr IV. 1000 / 1000 CONT .[id number] [facility] Rx#:[id number] Primaxin Inj 500 MG In NS Inj 200 / 200 100 / 100 100 / 100 100 ML @ 200 mls/hr IV.SIG Q8H [facility] Rx#:[id number] Magnesium Sulfate Inj 2 GM In 100 / 100 NS Inj 96 ML @ 50 mls/hr IV.SIG ONCE ONE Rx#:[id number] Oral 1400 / 1400 Other: # Voids 6 3 # Bowel Movements 3 05/21/18 06:11 Blood - Peripheral Aerobic Blood Culture - Final No growth in 5 days 05/21/18 06:11 Blood - Peripheral Anaerobic Blood Culture - Final No growth in 5 days 05/21/18 06:05 Blood - Peripheral Aerobic Blood Culture - Final No growth in 5 days 05/21/18 06:05 Blood - Peripheral Anaerobic Blood Culture - Final No growth in 5 days 05/17/18 01:30 Clean Catch Urine Urine Culture - Final Escherichia coli ESBL positive Enterococcus faecium 05/23/18 12:00 Catheterized Urine Urine Culture - Final No growth in 48 hours Lab - Hematology Results 05/25/18 05/26/18 05:16 06:20 WBC 9.3 D 6.7 RBC 3.32 L 3.18 L Hgb 9.4 L 8.9 L Hct 28.0 L 27.8 L MCV 84.4 D 87.5 MCH 28.3 28.1 MCHC 33.5 32.1 RDW 17.2 17.5 H Plt Count 747 H 764 H MPV 8.6 8.9 Neut % (Auto) 84.3 H 74.1 H Lymph % (Auto) 7.3 L 12.4 [place] % (Auto) 7.1 11.7 H Eos % (Auto) 1.0 1.1 Baso % (Auto) 0.3 0.7 Neut # (Auto) 7.8 H 5.0 Lymph # (Auto) 0.7 L 0.8 L [place] # (Auto) 0.7 0.8 Eos # (Auto) 0.1 0.1 Baso # (Auto) 0.0 0.0 WBC Differential . . Differential Comment Auto diff final Auto diff final Lab - Chemistry Results 05/24/18 05/24/18 05/25/18 17:24 20:33 05:16 Sodium 135 L Potassium 5.0 Chloride 102 Carbon Dioxide 28.9 Anion Gap 4 L BUN 21 H Creatinine 1.45 H Estimated GFR 37 L POC Glucose 128 H 327 H Random Glucose 219 H Calcium 9.0 Magnesium 1.7 Total Bilirubin 0.1 L AST 15 ALT 15 Alkaline Phosphatase 199 H Total Protein 6.2 L Albumin 2.6 L 05/25/18 05/25/18 05/25/18 07:52 11:52 16:52 Sodium Potassium Chloride Carbon Dioxide Anion Gap BUN Creatinine Estimated GFR POC Glucose 251 H 144 H 312 H Random Glucose Calcium Magnesium Total Bilirubin AST ALT Alkaline Phosphatase Total Protein Albumin 05/25/18 05/26/18 05/26/18 21:55 06:20 07:30 Sodium 136 Potassium 5.2 H Chloride 104 Carbon Dioxide 24.7 Anion Gap 7 BUN 19 H Creatinine 1.35 H Estimated GFR 40 L POC Glucose 294 H 124 H Random Glucose 105 D Calcium 9.4 Magnesium 2.2 Total Bilirubin AST ALT Alkaline Phosphatase Total Protein Albumin 05/26/18 05/26/18 12:47 17:16 Sodium Potassium Chloride Carbon Dioxide Anion Gap BUN Creatinine Estimated GFR POC Glucose 218 H 258 H Random Glucose Calcium Magnesium Total Bilirubin AST ALT Alkaline Phosphatase Total Protein Albumin Imaging: ITS Impressions Abdomen/Pelvis CT 05/17/18 00:00 CONCLUSION: 1. Extensive postsurgical changes which include a gastrojejunostomy, pancreatectomy, choledochojejunostomy, splenectomy, cholecystectomy and hysterectomy. 2. Right pelvic renal transplant. 3. No evidence of intra-abdominal abscess, free fluid or free air. 4. No evidence of suspicious mass or developing lymphadenopathy. Chest X-Ray 05/21/18 00:00 CONCLUSION: No active disease. Minimal linear scarring left lung base. Upper GI and Small Bowel X-Ray 05/21/18 00:00 CONCLUSION: No obstruction is seen. Status post resection of much of the colon. Contrast is seen within the rectum. Pneumobilia. On later images contrast is seen to extend into the biliary system. Venous Doppler Study 05/23/18 00:00 CONCLUSION: 1. DVT of the left lower extremity. 2. No DVT identified on the right. Ward Line Insertion 05/24/18 00:00 CONCLUSION: 1. Uncomplicated Ward catheter placement as above. Physical Exam: GENERAL: No acute distress. Awakeand alert SKIN: No rash HEENT: The head is atraumatic. No icterus. Oropharynx moist mucosa without lesions. NECK: Supple without adenopathy. LUNGS: Clear breath sounds. HEART: Regular S1, S2, without murmurs. ABDOMEN: Bowel sounds present. Soft, nontender. Multiple scars C/S surgical history EXTREMITIES: No clubbing, cyanosis, or edema. Tiny cord at RUE above elbow. NEUROLOGIC: No gross focal findings. PSYCHIATRIC: Calm and cooperative. LINE: Ward with fresh blood soaking dressing Assessment and Plan (1) UTI due to extended-spectrum beta lactamase (ESBL) producing Escherichia coli Status: Acute Code(s): N39.0 - Urinary tract infection, site not specified; B96.29 - Other Escherichia coli [E. coli] as the cause of diseases classified elsewhere; Z16.12 - Extended spectrum beta lactamase (ESBL) resistance - Plan IMPRESSION: 1. Recurrent urinary tract infection. Patient with Escherichia coli, ESBL, which is now resistant to ertapenem. Previous treatment with ertapenem. The patient also has Enterococcus faecium in addition to the ESBL E. coli. 2. Renal transplant status. 3. Fever and chills. 4. Leukocytosis. Improved. RECOMMENDATIONS: Change to Avycaz - I filled out Abx form - give Abx until Jun 06 I will ask micro to run susceptibility also on Vaborbactam D/W patient need to get urology evaluation for her recurrent UTI Explained plan to the patient
[2018-05-26] MEDS ORDERED: amLODIPine 5 MG Tablet PO ONE (18:33)
[2018-05-26] MEDS: Ceftazidime/Avibactam Inj 1.25 GM in Sodium Chlor 0.9% Inj 50 ML IV.SIG SCH (18:52)
[2018-05-26] MEDS: hydrALAZINE 25 MG Tablet PO SCH (19:27)
[2018-05-27] MEDS: Morphine Sulfate Inj 2 MG/ML Vial IV.PUSH PRN ×3 (01:09→12:54)
[2018-05-27] MEDS: Ceftazidime/Avibactam Inj 1.25 GM in Sodium Chlor 0.9% Inj 50 ML IV.SIG SCH ×2 (01:09→10:14)
[2018-05-27 07:46] LABS: Baso % (Auto) 0.5 % (0.0-2.0); Eos # (Auto) 0.2 th/mm3 (0.0-0.4); Eos % (Auto) 2.5 % (0.0-4.0); Hematocrit 26.1 % (35.0-46.0); Hemoglobin 8.8 gm/dL (11.6-15.3); Lymph # (Auto) 0.9 th/mm3 (1.0-4.8); Lymph % (Auto) 13.2 % (9.0-44.0); Mean Corpuscular HGB Conc 33.8 % (32.0-36.0); Mean Corpuscular Hemoglobin 28.7 pg (27.0-34.0); Mean Corpuscular Volume 84.9 fL (80.0-100.0); Mean Platelet Volume 8.3 fL (7.0-11.0); Mono # (Auto) 0.7 th/mm3 (0.0-0.9); Mono % (Auto) 11.4 % (0.0-8.0); Neut # (Auto) 4.8 th/mm3 (1.8-7.7); Neut % (Auto) 72.4 % (16.0-70.0); Platelet Count 767 th/mm3 (150-450); Red Blood Count 3.08 mil/mm3 (4.00-5.30); Red Cell Distribution Width 17.5 % (11.6-17.2); White Blood Count 6.6 th/mm3 (4.0-11.0)
[2018-05-27 08:06] VITALS: PULSE 61
[2018-05-27 08:13] LABS: Calcium 8.6 mg/dL (8.5-10.1); Potassium 5.1 meq/L (3.5-5.1)
[2018-05-27] MEDS ORDERED: amLODIPine 5 MG Tablet PO SCH (09:00)
[2018-05-27] MEDS: Lipase/Protease/Amylase 24/76/120 DR Capsule PO SCH ×2 (10:12→13:00)
[2018-05-27] MEDS: Metoclopramide 10 MG Tablet PO SCH ×2 (10:13→13:00)
[2018-05-27] MEDS: Carvedilol 12.5 MG Tablet PO SCH (10:13)
[2018-05-27] MEDS: hydrALAZINE 25 MG Tablet PO SCH (10:14)
[2018-05-27] MEDS: predniSONE 10 MG Tablet PO SCH (10:14)
[2018-05-27] MEDS: Linezolid 600 MG Tablet PO SCH (10:14)
--- NOTE | 2018-05-27 10:36 | P.DS ---
Date of admission: 05/17/18 02:52 Primary care physician: Armani Batista Brief History from admission: This patient is a 57-year-old female who has a history of polycystic kidney disease status post renal transplantation. Patient also has a history of multiple UTIs that are MDR. The patient recently had a urinary tract infection and was treated with ertapenem which was completed on 05/12/2018. She also has a history of pulmonary embolus and DVTs in the past and follows up with Dr. Wallace. The patient also has extensive postsurgical changes which include a gastrojejunostomy, pancreatectomy, choledochojejunostomy, splenectomy , cholecystectomy and hysterectomy. The patient was admitted for severe sepsis secondary to ESBL E. coli and enterococcus MDR UTI. During the hospitalization the patient was also found to have a left lower extremity DVT and right brachial vein DVT. DS: Summary Hospital Course: This patient is a 57-year-old female who has a history of polycystic kidney disease status post renal transplantation. Patient also has a history of multiple UTIs that are MDR. The patient recently had a urinary tract infection and was treated with ertapenem which was completed on 05/12/2018. She also has a history of pulmonary embolus and DVTs in the past and follows up with Dr. Wallace. The patient also has extensive postsurgical changes which include a gastrojejunostomy, pancreatectomy, choledochojejunostomy, splenectomy , cholecystectomy and hysterectomy. The patient was admitted for severe sepsis secondary to ESBL E. coli and enterococcus MDR UTI. During the hospitalization the patient was also found to have a left lower extremity DVT and right brachial vein DVT. 1. Severe sepsis secondary to ESBL E. coli and enterococcus MDR UTI As mentioned above the patient presented with fevers at home of 102 and an elevated WBC count. She was started on IV antibiotics and urine cultures were sent which returned positive for ESBL E. coli and enterococcus MDR UTI. Infectious disease was consulted and the patient was started on treatment with ceftazidime and Zyvox. The patient symptoms improved and she has remained afebrile since hospitalization. Infectious disease recommends that the patient continue IV antibiotics with home health for another 10 days. The patient will be discharged home today. I discussed the case with case management and once her home health and IV antibiotics are ready she will be discharged. The patient should also follow-up outpatient with urology as she continues to have recurrent urinary tract infections which are MDR. Urology evaluated the patient and recommended the patient have a cystoscopy as outpatient after discharge. 2. Left lower extremity DVT, right brachial vein DVT, history of pulmonary embolus The patient has a history of pulmonary embolus. Currently she has a left lower extremity DVT as well as a right brachial vein DVT. Patient has a history of bleeding on Coumadin and does not want to start Coumadin. The patient was evaluated by hematology. The patient follows up with Dr. Wallace and she is not a candidate for oral anticoagulants. The patient will be discharged on Lovenox twice daily. During the hospitalization the patient was having bleeding from her Ward site, the bleeding has stopped. Aspirin was also started to the patient's medication regimen. 3. History of polycystic kidney disease status post renal transplant Continue Prograf and prednisone. 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 4. Acute kidney injury Likely prerenal and due to severe sepsis. Patient serum creatinine was elevated on admission at 1.8. After the initiation of treatment the patient's creatinine has improved and is currently at 1.36. She follow-up with her primary care doctor in the next 1-2 weeks. I recommend that her kidney function be routinely monitored. 5. Hypertension The patient was also found to be hypertensive during this hospitalization. Her antihypertensives were adjusted. Her blood pressure is now better controlled. I recommend that she follow-up with her primary care doctor in the next 1-2 weeks and her anti-potentials can be adjusted if needed. 6. Thrombocytosis, reactive Patient has had bone marrow biopsy in the past with no underlying evidence of myeloproliferative neoplasm. 7. Diabetes mellitus Continue home medication regimen. The patient can follow-up with her primary care doctor and her diabetes mellitus regimen can be adjusted as needed. - Time Spent with Patient Total time spent providing and/or coordinating discharge services: Greater than 30 minutes - Quality: VTE Deep Vein Thrombosis/Pulmonary Embolism Present on Admission: No Exam Vital signs: Vital Signs 05/26/18 12:00 05/26/18 16:00 05/26/18 17:30 Temperature 98.5 F 98.2 F Pulse Rate 80 67 Respiratory Rate 18 17 Blood Pressure 168/83 H 203/96 H 201/89 H Pulse Oximetry 97 97 05/26/18 20:00 05/26/18 21:15 05/27/18 00:00 Temperature 98.4 F 98.5 F Pulse Rate 65 62 Respiratory Rate 17 18 Blood Pressure 199/88 H 189/89 H 184/84 H Pulse Oximetry 96 96 05/27/18 04:00 05/27/18 08:00 Temperature 98.1 F 98.2 F Pulse Rate 64 61 Respiratory Rate 16 16 Blood Pressure 135/63 154/67 H Pulse Oximetry 98 96 Intake & Output 05/26/18 05/27/18 05/27/18 18:59 06:59 18:59 Intake Total 675 / 675 2577 / 2577 Balance 675 / 675 2577 / 2577 Weight 64 kg 63.8 kg Intake: IV 100 / 100 1996 NS Inj 1,000 ML @ 70 mls/hr IV. 189 / 1897 CONT .[id number] [facility] Rx#:[id number] Avycaz Inj 1.25 GM In NS Inj 50 100 / 100 ML @ 25 mls/hr IV.SIG Q8H [facility] Rx#:[id number] Primaxin Inj 500 MG In NS Inj 100 / 100 100 ML @ 200 mls/hr IV.SIG Q8H [facility] Rx#:[id number] Oral 575 / 575 580 / 580 Other: # Voids 7 2 Date of Last Bowel Movement 05/26/18 # Bowel Movements 1 Narrative: atraumatic, normocephalic S1S2, Ward in place. No signs of infection, bleeding, or erythema near the site. CTA b/l soft, nontender, nondistended, normal bowel sounds No edema Results Procedures completed during hospitalization: Ward placement Labs on day of discharge: Labs from last 24 hours 05/27/18 05/27/18 05/26/18 07:00 07:00 21:33 WBC 6.6 RBC 3.08 L Hgb 8.8 L Hct 26.1 L MCV 84.9 MCH 28.7 MCHC 33.8 RDW 17.5 H Plt Count 767 H MPV 8.3 Neut % (Auto) 72.4 H Lymph % (Auto) 13.2 [place] % (Auto) 11.4 H Eos % (Auto) 2.5 Baso % (Auto) 0.5 Neut # (Auto) 4.8 Lymph # (Auto) 0.9 L [place] # (Auto) 0.7 Eos # (Auto) 0.2 Baso # (Auto) 0.0 WBC Differential . Differential Comment Auto diff final Sodium 137 Potassium 5.1 Chloride 103 Carbon Dioxide 28.0 Anion Gap 6 BUN 19 H Creatinine 1.38 H Estimated GFR 39 L POC Glucose 215 H Random Glucose 188 H Calcium 8.6 D Tacrolimus 05/26/18 05/26/18 05/26/18 17:16 12:47 06:20 WBC RBC Hgb Hct MCV MCH MCHC RDW Plt Count MPV Neut % (Auto) Lymph % (Auto) [place] % (Auto) Eos % (Auto) Baso % (Auto) Neut # (Auto) Lymph # (Auto) [place] # (Auto) Eos # (Auto) Baso # (Auto) WBC Differential Differential Comment Sodium Potassium Chloride Carbon Dioxide Anion Gap BUN Creatinine Estimated GFR POC Glucose 258 H 218 H Random Glucose Calcium Tacrolimus 6.7 Preliminary micro results at discharge 05/17/18 01:30 Urine Culture - Preliminary Clean Catch Urine Escherichia coli ESBL positive Enterococcus faecium - Impressions ITS Impressions Abdomen/Pelvis CT 05/17/18 00:00 CONCLUSION: 1. Extensive postsurgical changes which include a gastrojejunostomy, pancreatectomy, choledochojejunostomy, splenectomy, cholecystectomy and hysterectomy. 2. Right pelvic renal transplant. 3. No evidence of intra-abdominal abscess, free fluid or free air. 4. No evidence of suspicious mass or developing lymphadenopathy. Chest X-Ray 05/21/18 00:00 CONCLUSION: No active disease. Minimal linear scarring left lung base. Upper GI and Small Bowel X-Ray 05/21/18 00:00 CONCLUSION: No obstruction is seen. Status post resection of much of the colon. Contrast is seen within the rectum. Pneumobilia. On later images contrast is seen to extend into the biliary system. Venous Doppler Study 05/23/18 00:00 CONCLUSION: 1. DVT of the left lower extremity. 2. No DVT identified on the right. Ward Line Insertion 05/24/18 00:00 CONCLUSION: 1. Uncomplicated Ward catheter placement as above. Discharge Plan - Discharge Disposition Patient Disposition: /Home Health Service - Discharge Condition Condition: Good - Discharge Order Discharge Orders: Discharge Order (Routine); Ordered 05/27/18 Ordered By: James Chanel - Discharge Details Anticipated Discharge Date: 05/21/18 - Physicians Team Attending Provider: James Chanel Other Providers: Miki Hughes MD ; Dominique Kapoor MD ; Manas Ahn MD ; Catina Wallace ; Beth Parekh,[place] ; Parker Guajardo MD
[2018-05-27] MEDS ORDERED: hydrALAZINE 50 MG Tablet PO SCH (10:38)
--- NOTE | 2018-05-27 10:49 | P.PNNP ---
Subjective Interval history: Patient doing better, her bleeding Via Ward catheter has stopped this morning Patient is on Lovenox and aspirin for DVT Physical Exam Vital signs: Vital Signs 05/26/18 12:00 05/26/18 16:00 05/26/18 17:30 Temperature 98.5 F 98.2 F Pulse Rate 80 67 Respiratory Rate 18 17 Blood Pressure 168/83 H 203/96 H 201/89 H Pulse Oximetry 97 97 05/26/18 20:00 05/26/18 21:15 05/27/18 00:00 Temperature 98.4 F 98.5 F Pulse Rate 65 62 Respiratory Rate 17 18 Blood Pressure 199/88 H 189/89 H 184/84 H Pulse Oximetry 96 96 05/27/18 04:00 05/27/18 08:00 Temperature 98.1 F 98.2 F Pulse Rate 64 61 Respiratory Rate 16 16 Blood Pressure 135/63 154/67 H Pulse Oximetry 98 96 Intake & Output 05/26/18 05/27/18 05/27/18 18:59 06:59 18:59 Intake Total 675 / 675 2577 / 2577 Balance 675 / 675 2577 / 2577 Weight 64 kg 63.8 kg Intake: IV 100 / 100 1996 / 1996 NS Inj 1,000 ML @ 70 mls/hr IV. 1897 / 1897 CONT .[id number] [facility] Rx#:[id number] Avycaz Inj 1.25 GM In NS Inj 50 100 / 100 ML @ 25 mls/hr IV.SIG Q8H [facility] Rx#:[id number] Primaxin Inj 500 MG In NS Inj 100 / 100 100 ML @ 200 mls/hr IV.SIG Q8H [facility] Rx#:[id number] Oral 575 / 575 580 / 580 Other: # Voids 7 2 Date of Last Bowel Movement 05/26/18 # Bowel Movements 1 Narrative: atraumatic, normocephalic S1S2, Ward in place. No signs of infection, bleeding, or erythema near the site. CTA b/l soft, nontender, nondistended, normal bowel sounds No edema Assessment and Plan - Assessment (1) Renal transplant recipient Code(s): Z94.0 - Kidney transplant status Status: Acute (2) Fever Code(s): R50.9 - Fever, unspecified Status: Acute Qualifiers: Fever type: unspecified Qualified Code(s): R50.9 - Fever, unspecified (3) Abdominal pain Code(s): R10.9 - Unspecified abdominal pain Status: Acute (4) Acute renal failure Code(s): N17.9 - Acute kidney failure, unspecified Status: Acute (5) Gastroparesis Code(s): K31.84 - Gastroparesis Status: Acute (6) Nausea Code(s): R11.0 - Nausea Status: Acute (7) History of intestinal surgery Code(s): Z98.890 - Other specified postprocedural states Status: Acute (8) DM (diabetes mellitus) Code(s): E11.9 - Type 2 diabetes mellitus without complications Status: Acute Qualifiers: Diabetes mellitus type: type 1 (9) Renal insufficiency Code(s): N28.9 - Disorder of kidney and ureter, unspecified Status: Acute - Plan on prednisone 10 mg p.o. daily and tacrolimus 4 mg twice daily, tacrolimus , GI following Patient has UTI and growing VRE and ESBL E. coli antibiotic ceftazidime/Avibactam and Zyvox ID consult appreciated, looking into different antibiotic regimen Recurrent UTI urology consult requested Tacrolimus levels 6.7 Ward catheter before antibiotics can be arranged she is okay to be discharged from nephrology point of view Urology to follow as out patient Patient given estrogen vaginal cream per Dr. Patel DVT treated with Lovenox and aspirin Continue with tacrolimus and prednisone
[2018-05-27 11:58] VITALS: BP 150/68; RESP 18; TEMP 98; O2SAT 95
[2018-05-27] MEDS: Insulin NovoLOG Aspart Correctional Sugar Inj SQ SCH ×2 (11:58→13:01)
[2018-05-27] MEDS: Sod Chloride 0.9% Inj 1,000 ML IV.CONT SCH (11:58)
[2018-05-27] MEDS: Insulin Detemir Inj 1,000 UNIT/10 ML Vial SQ SCH (11:59)
[2018-05-27] MEDS: Aspirin 325 MG Tablet PO SCH (11:59)
[2018-05-27] MEDS: Magnesium Oxide 400 MG Tablet PO SCH (12:00)
[2018-05-27] MEDS: Enoxaparin Inj 60 MG/0.6 ML Syringe SQ SCH (12:00)
[2018-05-27] MEDS: Sodium Chloride 0.9% 2 ML Flush BID IV.FLUSH SCH (12:01)
== END 2018-05-27 15:57 | disposition home health service (06) ==
LOC: NEPE 00:10 → NEDA 02:52 → N07 13:25
PROVIDERS: ADMIT Hospitalist; ATTEND Hospitalist